=== PATIENT | female | born 1960 ===

== ENCOUNTER 2020-01-09 12:30 | Inpatient (IN) | payer OTHER, SELFPAY ==
[2020-04-03 02:00] VITALS: BMI 20.7
[2020-04-04] MEDS: traZODone HCL 50 MG TABLET PO (01:25)
[2020-04-04] MEDS: hydrOXYzine HCL 25 MG TABLET PO (01:25)
[2020-04-04 06:00] VITALS: BP 117/77; RESP 16; TEMP 36.6; O2SAT 94
[2020-04-04 07:00] VITALS: BMI 24.7
[2020-04-04] MEDS: Cariprazine HCl 1.5 MG CAPSULE 4.5 MG PO (09:08)
[2020-04-04] MEDS: Benztropine Mesylate 0.5 MG TABLET PO ×2 (09:11→21:51)
--- NOTE | 2020-04-04 10:39 | P.PNPSI_ITS ---
Assessment & Plan Assessment & Plan (1) Schizoaffective disorder: Status: Acute Code(s): F25.9 - Schizoaffective disorder, unspecified Assessment and Plan: continue Vryalar hold Zyprexa scheduled monitor for psychosis Greater than 50% of the session was spent on counseling and/or coordination of care Subjective Subjective Reason For Visit: Schizoaffective D/O Bipolar Type Interim History: patient remains stable out of her room Zyprexa held starting tonight monitor for psychosis auditory hallucination Mental Status Exam Mental Status Exam Patient Appearance: Well Grooomed Patient Orientation: Person, Place, Time and Situation Level of Consciousness: Awake Patient Behavior: Appropriate and Passive Mood Description: Calm and Withdrawn Affect Description: Calm and Withdrawn Patient Cognition Impaired: No Speech Pattern: Clear Hallucinations: None (denies has recent ) Thought Content: [place] and Poverty of Content Judgement: Fair Diagnostics Vital Signs (24Hr): Vital Signs - 24 hr 04/04/20 06:00 Temperature 97.8 F Respiratory Rate 16 Blood Pressure 117/77 Pulse Oximetry 94 Body Mass Index 24.7 Labs Results: 01/12/20 07:31 03/09/20 07:00 Medications Medications Ambulatory Orders Medication Instructions Recorded benztropine 1 mg PO BID 04/03/20 cariprazine 3 mg PO DAILY 04/03/20 hydroxyzine pamoate 25 mg PO DAILY PRN 04/03/20 Allergies Allergies Allergy/AdvReac Type Severity Reaction Status Date / Time haloperidol [From Haldol] AdvReac Mild AGITATION Unverified 03/21/20 16:26 From Inderal Allergy Intermediate IRREGULAR Uncoded 03/21/20 16:26 HEARTBEAT Haldol Allergy Unknown Uncoded 12/04/19 00:00 Propanolol Allergy Unknown Uncoded 12/04/19 00:00
[2020-04-05 04:20] VITALS: BP 116/56; PULSE 85; RESP 16; TEMP 36.4; O2SAT 97
[2020-04-05] MEDS: Cariprazine HCl 1.5 MG CAPSULE 4.5 MG PO (08:51)
[2020-04-05] MEDS: Benztropine Mesylate 0.5 MG TABLET PO ×3 (08:51→20:51)
[2020-04-05] MEDS: Milk of Magnesia 30 ML ORAL.SUSP PO (10:02)
--- NOTE | 2020-04-05 13:19 | PC.NURSE ---
Pt declined flu shot
--- NOTE | 2020-04-05 23:56 | HO.PSYCHPN ---
Assessment & Plan Assessment & Plan (1) Schizoaffective disorder: Status: Acute Code(s): F25.9 - Schizoaffective disorder, unspecified Assessment and Plan: continue Vryalar 4.5 mg consider increase to 6 mg restart olanzapine if needed Greater than 50% of the session was spent on counseling and/or coordination of care Subjective Subjective Reason For Visit: Schizoaffective D/O Bipolar Type Subjective Notes: Prado Order Interim History: patient continues to be generally stable somewhat guarded but not grossly psychotic denies auditory hallucinations. Able to discuss the need for therapeutic [place] and to the patient having responsibility to mention if auditory hallucinations recur Medication Compliance: Yes Mental Status Exam Mental Status Exam Narrative: dressed appropriately , good eye contact- Patient Orientation: Person, Place, Time and Situation Level of Consciousness: Awake and Alert Patient Behavior: Appropriate Mood Description: Calm Affect Description: Flat Patient Cognition Impaired: No Ability to Follow Directions: Good Speech Pattern: Clear Hallucinations: None Thought Process: Intact Thought Content: positive for Intact (looking forward to seeing her cat) and positive for Goal Oriented Judgement: Fair Diagnostics Vital Signs (24Hr): Vital Signs - 24 hr 04/05/20 04:20 Temperature 97.5 F Pulse Rate 85 Respiratory Rate 16 Blood Pressure 116/56 L Pulse Oximetry 97 Body Mass Index 24.7 Labs Results: 01/12/20 07:31 03/09/20 07:00 Medications Medications Current Medications Generic Name Dose Route Start Last Admin Trade Name Freq PRN Reason Stop Dose Admin Acetaminophen 650 mg 04/04/20 00:01 Acetaminophen 325 Mg Tablet PO Q6H PRN HEADACHE/PAIN.MILD (SCALE 1-3) Al Hydroxide/Mg Hydroxide 30 ml 04/04/20 00:01 Magnesium Hydrox/Alum Hydrox 30 Ml Oral.Susp PO Q6H PRN HEARTBURN/NAUSEA Benztropine Mesylate 0.5 mg 04/05/20 09:00 04/05/20 20:51 Benztropine Mesylate 0.5 Mg Tablet PO 0.5 mg TID ANNA Administration Cariprazine 3 mg 04/06/20 09:00 Cariprazine Hcl 3 Mg Capsule PO DAILY ANNA Cariprazine 1.5 mg 04/06/20 09:00 Cariprazine Hcl 1.5 Mg Capsule PO DAILY ANNA Hydroxyzine HCl 25 mg 04/04/20 00:01 04/04/20 01:25 Hydroxyzine Hcl 25 Mg Tablet PO 25 mg DAILY PRN Administration Anxiety Magnesium Hydroxide 30 ml 04/04/20 00:01 04/05/20 10:02 Milk Of Magnesia 30 Ml Oral.Susp PO 30 ml Q24H PRN Administration Constipation Nicotine Polacrilex 2 mg 04/04/20 00:01 Nicotine Polacrilex 2 Mg Gum BUCCAL Q2H PRN Nicotine Cravings Olanzapine 20 mg 04/13/20 21:00 Olanzapine 10 Mg Vial IM BEDTIME PRN anxiety/restlessness Olanzapine 10 mg 04/04/20 00:01 Olanzapine 10 Mg Tablet PO BID PRN Psychosis Propranolol HCl 10 mg 04/04/20 00:01 Propranolol Hcl 10 Mg Tablet PO TID PRN Tremors Protocol Trazodone HCl 50 mg 04/04/20 21:00 04/04/20 01:25 Trazodone Hcl 50 Mg Tablet PO 50 mg BEDTIME MRX1 PRN Administration Insomnia Allergies Allergies Allergy/AdvReac Type Severity Reaction Status Date / Time haloperidol [From Haldol] AdvReac Mild AGITATION Unverified 03/21/20 16:26 From Inderal Allergy Intermediate IRREGULAR Uncoded 03/21/20 16:26 HEARTBEAT Haldol Allergy Unknown Uncoded 12/04/19 00:00 Propanolol Allergy Unknown Uncoded 12/04/19 00:00
[2020-04-06] MEDS: traZODone HCL 50 MG TABLET PO (01:27)
[2020-04-06] MEDS: hydrOXYzine HCL 25 MG TABLET PO (01:27)
[2020-04-06 06:00] VITALS: BP 129/65; PULSE 82; TEMP 36.7
[2020-04-06] MEDS: Benztropine Mesylate 0.5 MG TABLET PO ×3 (08:55→22:27)
[2020-04-06] MEDS: Cariprazine HCl 3 MG CAPSULE PO (08:56)
[2020-04-06] MEDS: Cariprazine HCl 1.5 MG CAPSULE PO (11:19)
--- NOTE | 2020-04-06 12:14 | P.PNPSI_ITS ---
Assessment & Plan Greater than 50% of the session was spent on counseling and/or coordination of care Patient educated on: medication risk/benefits Informed Consent: understands Reason for contiued inpatient stay Substantial Risk for: rapid decompensation (has had a long recovery recompensation of significant psychtoic episode) Subjective Subjective Date of Service: 04/06/20 Reason For Visit: Schizoaffective D/O Bipolar Type Subjective Notes: Prado Order (vraylar and olanzapine) Interim History: Doing better - up and dressed, verbal going home Wednesday - using Yoga some trouble sleeping Medication Compliance: Yes (much better) Side effects from medications: No Attending Groups: Intermittent Review of Systems Acute medical concerns: No Medical Review of Systems: unchanged Mental Status Exam Mental Status Exam Patient Appearance: Well Grooomed and Appropriate Patient Orientation: Person, Place, Time and Situation Level of Consciousness: Awake and Appropriate Patient Behavior: Appropriate Mood Description: Calm Affect Description: Blunted Memory Description: Normal for Patient Hallucinations: None Delusions: Not Present (or atleast not voiced) Thought Process: Intact Thought Content: positive for [place] Judgement: Fair Judgement and Insight: hope she will continue to comply with medications outpatient Diagnostics Vital Signs (24Hr): Vital Signs - 24 hr 04/06/20 06:00 Temperature 98.1 F Pulse Rate 82 Blood Pressure 129/65 Body Mass Index 24.7 Labs Results: 01/12/20 07:31 03/09/20 07:00 Medications Medications Current Medications Generic Name Dose Route Start Last Admin Trade Name Freq PRN Reason Stop Dose Admin Acetaminophen 650 mg 04/04/20 00:01 Acetaminophen 325 Mg Tablet PO Q6H PRN HEADACHE/PAIN.MILD (SCALE 1-3) Al Hydroxide/Mg Hydroxide 30 ml 04/04/20 00:01 Magnesium Hydrox/Alum Hydrox 30 Ml Oral.Susp PO Q6H PRN HEARTBURN/NAUSEA Benztropine Mesylate 0.5 mg 04/05/20 09:00 04/06/20 08:55 Benztropine Mesylate 0.5 Mg Tablet PO 0.5 mg TID ANNA Administration Cariprazine 3 mg 04/06/20 09:00 04/06/20 08:56 Cariprazine Hcl 3 Mg Capsule PO 3 mg DAILY ANNA Administration Cariprazine 1.5 mg 04/06/20 09:00 04/06/20 11:19 Cariprazine Hcl 1.5 Mg Capsule PO 1.5 mg DAILY ANNA Administration Hydroxyzine HCl 25 mg 04/04/20 00:01 04/06/20 01:27 Hydroxyzine Hcl 25 Mg Tablet PO 25 mg DAILY PRN Administration Anxiety Magnesium Hydroxide 30 ml 04/04/20 00:01 04/05/20 10:02 Milk Of Magnesia 30 Ml Oral.Susp PO 30 ml Q24H PRN Administration Constipation Nicotine Polacrilex 2 mg 04/04/20 00:01 Nicotine Polacrilex 2 Mg Gum BUCCAL Q2H PRN Nicotine Cravings Olanzapine 20 mg 04/13/20 21:00 Olanzapine 10 Mg Vial IM BEDTIME PRN anxiety/restlessness Olanzapine 10 mg 04/04/20 00:01 Olanzapine 10 Mg Tablet PO BID PRN Psychosis Propranolol HCl 10 mg 04/04/20 00:01 Propranolol Hcl 10 Mg Tablet PO TID PRN Tremors Protocol Trazodone HCl 50 mg 04/04/20 21:00 04/06/20 01:27 Trazodone Hcl 50 Mg Tablet PO 50 mg BEDTIME MRX1 PRN Administration Insomnia Allergies Allergies Allergy/AdvReac Type Severity Reaction Status Date / Time haloperidol [From Haldol] AdvReac Mild AGITATION Unverified 03/21/20 16:26 From Inderal Allergy Intermediate IRREGULAR Uncoded 03/21/20 16:26 HEARTBEAT Haldol Allergy Unknown Uncoded 12/04/19 00:00 Propanolol Allergy Unknown Uncoded 12/04/19 00:00
[2020-04-07] MEDS: traZODone HCL 50 MG TABLET PO (00:41)
[2020-04-07] MEDS: hydrOXYzine HCL 25 MG TABLET PO (00:42)
[2020-04-07 06:40] VITALS: BP 107/64; PULSE 73; RESP 16; TEMP 36.3; O2SAT 96
[2020-04-07] MEDS: Cariprazine HCl 1.5 MG CAPSULE PO (08:57)
[2020-04-07] MEDS: Cariprazine HCl 3 MG CAPSULE PO (08:59)
[2020-04-07] MEDS: Benztropine Mesylate 0.5 MG TABLET PO ×3 (09:09→22:35)
--- NOTE | 2020-04-07 12:36 | HO.PSYCHPN ---
Assessment & Plan Assessment & Plan (1) Schizoaffective disorder: Status: Acute Code(s): F25.9 - Schizoaffective disorder, unspecified Assessment and Plan: compliant with medications required 2 atypical antipsychotics to stabilize Greater than 50% of the session was spent on counseling and/or coordination of care Subjective Subjective Date of Service: 04/07/20 Reason For Visit: Schizoaffective D/O Bipolar Type Subjective Notes: Other (sec8 ) Interim History: Pt continues to do well - slept better last night, was appropriate and left room when I was interviewing roommate Medication Compliance: Yes Side effects from medications: No Attending Groups: Intermittent Review of Systems Acute medical concerns: No Medical Review of Systems: unchanged Mental Status Exam Mental Status Exam Narrative: dressed appropriately , good eye contact- Patient Orientation: Person, Place, Time and Situation Level of Consciousness: Awake and Alert Patient Behavior: Appropriate Mood Description: Calm Affect Description: Flat Patient Cognition Impaired: No Ability to Follow Directions: Good Speech Pattern: Clear Hallucinations: None Thought Process: Intact Thought Content: positive for Intact (looking forward to seeing her cat) and positive for Goal Oriented Judgement: Fair Diagnostics Vital Signs (24Hr): Vital Signs - 24 hr 04/07/20 06:40 Temperature 97.4 F Pulse Rate 73 Respiratory Rate 16 Blood Pressure 107/64 Pulse Oximetry 96 Body Mass Index 24.7 Labs Results: 01/12/20 07:31 03/09/20 07:00 Medications Medications Current Medications Generic Name Dose Route Start Last Admin Trade Name Freq PRN Reason Stop Dose Admin Acetaminophen 650 mg 04/04/20 00:01 Acetaminophen 325 Mg Tablet PO Q6H PRN HEADACHE/PAIN.MILD (SCALE 1-3) Al Hydroxide/Mg Hydroxide 30 ml 04/04/20 00:01 Magnesium Hydrox/Alum Hydrox 30 Ml Oral.Susp PO Q6H PRN HEARTBURN/NAUSEA Benztropine Mesylate 0.5 mg 04/05/20 09:00 04/07/20 09:09 Benztropine Mesylate 0.5 Mg Tablet PO 0.5 mg TID ANNA Administration Cariprazine 3 mg 04/06/20 09:00 04/07/20 08:59 Cariprazine Hcl 3 Mg Capsule PO 3 mg DAILY ANNA Administration Cariprazine 1.5 mg 04/06/20 09:00 04/07/20 08:57 Cariprazine Hcl 1.5 Mg Capsule PO 1.5 mg DAILY ANNA Administration Hydroxyzine HCl 25 mg 04/04/20 00:01 04/07/20 00:42 Hydroxyzine Hcl 25 Mg Tablet PO 25 mg DAILY PRN Administration Anxiety Magnesium Hydroxide 30 ml 04/04/20 00:01 04/05/20 10:02 Milk Of Magnesia 30 Ml Oral.Susp PO 30 ml Q24H PRN Administration Constipation Nicotine Polacrilex 2 mg 04/04/20 00:01 Nicotine Polacrilex 2 Mg Gum BUCCAL Q2H PRN Nicotine Cravings Olanzapine 20 mg 04/13/20 21:00 Olanzapine 10 Mg Vial IM BEDTIME PRN anxiety/restlessness Olanzapine 10 mg 04/04/20 00:01 Olanzapine 10 Mg Tablet PO BID PRN Psychosis Propranolol HCl 10 mg 04/04/20 00:01 Propranolol Hcl 10 Mg Tablet PO TID PRN Tremors Protocol Trazodone HCl 50 mg 04/04/20 21:00 04/07/20 00:41 Trazodone Hcl 50 Mg Tablet PO 50 mg BEDTIME MRX1 PRN Administration Insomnia Allergies Allergies Allergy/AdvReac Type Severity Reaction Status Date / Time haloperidol [From Haldol] AdvReac Mild AGITATION Unverified 03/21/20 16:26 From Inderal Allergy Intermediate IRREGULAR Uncoded 03/21/20 16:26 HEARTBEAT Haldol Allergy Unknown Uncoded 12/04/19 00:00 Propanolol Allergy Unknown Uncoded 12/04/19 00:00
[2020-04-08 06:00] VITALS: BP 110/60; PULSE 80; RESP 16; TEMP 36.6
[2020-04-08] MEDS: Cariprazine HCl 3 MG CAPSULE PO (08:51)
[2020-04-08] MEDS: Cariprazine HCl 1.5 MG CAPSULE PO (08:51)
[2020-04-08] MEDS: Benztropine Mesylate 0.5 MG TABLET PO (08:51)
[2020-04-08 12:28] LABS: MANUAL DIFF FLAG NO
[2020-04-08 12:34] LABS: Basophils Percent Auto 0.7 % (0-2); Eosinophils Percent Auto 0.5 % (0-4); Hematocrit 39.1 % (37-47); Hemoglobin 12.9 g/dl (12.0-16.0); Imm Gran Abs Auto 0.02 X10*3/uL (0.00-0.03); Imm Gran Pct Auto 0.4 % (0.0-0.4); Lymphocytes Absolute Auto 1.6 X10*3/uL (1.2-4.9); Lymphocytes Percent Auto 28.6 % (20-40); Mean Corpuscular Hemoglobin 31.9 pg (27.0-33.0); Mean Corpuscular Volume 96.8 fL (80-98); Mean Platelet Volume 10.3 fL (9.4-12.3); Monocytes Absolute Auto 0.4 X10*3/uL (0.1-1.2); Neutrophils Absolute Auto 3.6 X10*3/uL (2.0-8.3); Neutrophils Percent Auto 62.8 % (45-73); Platelet Count 213 X10*3/uL (160-400); Red Blood Count 4.04 X10*6/uL (4.20-5.50); Red Cell Distribution Width 12.4 % (11.0-16.0); White Blood Count 5.7 X10*3/uL (4.8-10.8)
[2020-04-08 12:42] LABS: Estimated Average Glucose 111 mg/dL; Hemoglobin A1c % 5.5 %
[2020-04-08 13:00] LABS: Alanine Aminotransferase 19 U/L (0-31); Albumin Level 3.9 g/dL (3.5-5.0); Alkaline Phosphatase 82 U/L (39-117); Anion Gap 10 (12-20); Aspartate Amino Transferase 18 U/L (5-31); Bilirubin Total 0.3 mg/dL (0.0-1.0); Blood Urea Nitrogen 16 mg/dL (9-16); Calcium 9.1 mg/dL (8.4-10.2); Carbon Dioxide 31 mmol/L (22-29); Chloride 106 mmol/L (96-108); Creatinine Clr Calc Pharmacy 81.2; Estimated Glomerular Filt Rate > 60; Glucose Random 94 mg/dL (60-115); Potassium 4.6 mmol/l (3.3-5.1); Sodium 142 mmol/L (135-145); Total Protein 6.3 g/dL (6.5-8.0)
--- NOTE | 2020-04-08 13:07 | PM.PSYDC ---
DS: Providers Provider Date of admission: 01/09/20 12:30 date of discharge 04/08/2020 Primary care physician: Tiffany Crow MD Consults: 04/03/20 02:05 Consult to Crisis Routine DS: Diagnosis Discharge Diagnosis (1) Schizoaffective disorder: Status: Acute Discharge Plan Discharge Anticipated Discharge Date/Time: 04/08/20 00:56 Patient Disposition: Home Health Service Referrals: [facility] Visiting RN [Other] - 04/09/20 (Please mixing picker tender your medication today. The Visiting RN will have her first visit with you on 04/09/20. ) Rod Seo NP [Referring] - 05/06/20 11:20 am Tiffany Crow MD [Primary Care Provider] - 04/12/20 9:30 am Discharge Medications: New olanzapine 10 mg Tablet 10 mg PO DAILY PRN (Reason: hallucinations) 30 Days Qty: 14 RF: 1 Vraylar 4.5 mg capsule 4.5 mg PO DAILY 30 Days Qty: 30 RF: 0 benztropine 0.5 mg tablet 0.5 mg PO TID 30 Days Qty: 90 RF: 0 benztropine 0.5 mg tablet 0.5 mg PO TID 30 Days Qty: 90 RF: 0 Discontinued benztropine 1 mg Tablet 1 mg PO BID RF: 0 hydroxyzine pamoate 25 mg Capsule 25 mg PO DAILY PRN (Reason: ANXIETY OR INSOMNIA) RF: 0 cariprazine 3 mg Capsule 3 mg PO DAILY RF: 0 Discharge Orders: Discharge Order (Routine); Ordered 04/08/20 Ordered By: Ney Irvin Diet: advance to usual diet Activity on Discharge: As tolerated Patient Instructions: Cariprazine (By mouth), Bipolar Disorder (DC) Discharge Date/Time: 04/08/20 15:30 Visit Report Forms: Patient Portal Discharge page Care Plan Goals: stable mood no hallucinations no severe agitation take medication daily Health Concerns: schizoaffective disorder noncompliance with medication Plan of Treatment: medication vraylar daily zyprexa daily as needed for hallucinations psychiatric provider therapy Mental Status Exam Mental Status Exam Narrative: dressed appropriately , good eye contact- Patient Appearance: Well Grooomed and Appropriate Patient Orientation: Person, Place, Time and Situation Level of Consciousness: Awake and Alert Patient Behavior: Appropriate Mood Description: Calm Affect Description: Flat Patient Cognition Impaired: No Ability to Follow Directions: Good Speech Pattern: Clear Memory Description: Normal for Patient Hallucinations: None Delusions: Not Present Thought Content: positive for [place] Depressive Symptoms: Increased Anxiety and Increased Irritability Judgement and Insight: patient excepted need for medication by the time of discharge was much more cooperative DS: Summary Hospital Course Hospital Course: The patient was initially admitted 01/09/2020 on a Section 12 secondary to worsening psychosis refusing medication in the community. She had been stable on Vryalar. Or patient became increasingly paranoid disorganized. She has had past trials of Abilify lithium lamotrigine Seroquel Geodon and a brief trial of clozapine in the past. Past history of good response to olanzapine. The patient was admitted on a Section 12 was grossly psychotic paranoid and disorganized on admission. She was put on close observation she was screaming yelling talking about demons and aliens. She was hypersexual times required physical a medication restraint secondary to severe agitation threatening behavior and psychotic symptoms. The patient generally was refusing p.o. medication with a commitment order and Prado order was obtained on February 14. The patient was started on some sertraline p.o. because of what appeared to be post psychotic depressive symptoms but she generally refused. She also refused engaging with her out reach team despite trying to set up a discharge plan and transition. The patient was treated with up to 30 mg of olanzapine and did ask to be transitioned back to Vryalar which she said had been better tolerated. She did have idiosyncratic thoughts about medication and side effects. Olanzapine was gradually tapered and Vryalar introduced and gradually increased. The patient was cooperative with this transition and was something that she strongly wished to do. the patient had been irritable dysphoric somewhat paranoid and suspicious regarding her out reach team mixed in with some realistic concerns regarding how she had been treated. The patient was eventually able to participate in the therapeutic [place] with this advertising copy writer gradually being clear when there were residual auditory hallucinations or paranoia. Patient was able to eventually reengage with her outpatient team be forthcoming and what she felt she needed help with. She was somewhat flat but significantly less depressed and less guarded by the time of discharge. She was logical and goal directed generally much less concerned regarding any paranoid themes and there was no gross hallucinations or delusional material. The patient had been referred to [facility] but this turned out not to be necessary. She was on Vryalar is 4.5 mg olanzapine 10 mg p.r.n. Cogentin 0.5 mg t.i.d. see discharge plan for full discharge medication patient was referred back to [facility] p.r.n. Time Spent with Patient Time attestation: Total time spent providing and/or coordinating discharge services:
[2020-04-08 13:19] LABS: Thyroid Stimulating Hormone 0.32 mIU/mL (0.32-4.0)
== END 2020-04-08 15:30 | disposition home health service (06) | DRG 885 ==
PROVIDERS: Admitting Provider Psychiatry & Neurology Psychiatry; Emergency Provider Physician Assistant Medical; PCP Student in an Organized Health Care Education/Training Program; Visit Provider Psychiatry & Neurology Psychiatry
DX: F25.0 Schizoaffective disorder, bipolar type (principal); Z20.828 Contact with and (suspected) exposure to other viral communicable diseases; Z91.19 Patient's noncompliance with other medical treatment and regimen; Z79.899 Other long term (current) drug therapy
CPT/HCPCS: 36415; 80053; 80061; 81001; 82607; 82746; 83036; 84439; 84443; 85025; 87088; 87635; 93005; 96372; 99232; 99239; 99285; J0515; J1200; J2060; J3486

== ENCOUNTER 2021-12-01 09:06 | Inpatient (IN) | payer OTHER, SELFPAY ==
[2021-12-01] MEDS: OLANZapine 10 MG VIAL IM (09:10)
--- NOTE | 2021-12-01 09:12 | ED.PSYCH ---
HPI - Psych General Chief Complaint: Psychiatric Symptoms Stated Complaint: SECTION 12, PD ONBOARD Time Seen by Provider: 12/01/21 09:08 Source: EMS and old records reviewed Mode of arrival: EMS Limitations: other (agitated, talking in circles) History of Present Illness MD complaint: other (paranoid, off of medications, agitated, walking into neighbor's houses, banging on doors) Onset (ago): unknown Duration: constant History of same: Yes Relieving factors: none Exacerbating factors: other (not taking medication) Context: not taking psychiatric medications Associated psychiatric symptoms: racing thoughts and delusions Associated symptoms: denies other symptoms Treatments prior to arrival: placed on mental health hold Related Data Home Medications Medication Instructions Recorded Confirmed lurasidone 40 mg tablet (Latuda) 1 tab PO DAILY 12/01/21 12/01/21 Allergies Allergy/AdvReac Type Severity Reaction Status Date / Time haloperidol [From Haldol] AdvReac Mild AGITATION Unverified 03/21/20 16:26 From Inderal Allergy Intermediate IRREGULAR Uncoded 03/21/20 16:26 HEARTBEAT Haldol Allergy Unknown Uncoded 12/04/19 00:00 Propanolol Allergy Unknown Uncoded 12/04/19 00:00 Review of Systems Review of Systems: ROS unable to be obtained due to agitation, talking in circles PMFSH Past Medical History Source: old records reviewed Medical History Schizoaffective disorder Social History Social History (Updated 12/01/21 @ 09:17 by Mabel Delgadillo DO) Patient Tobacco Use Status: Tobacco use Unknown Advance Directives: No Advance Directives Information Provided: No Physical Exam Vital Signs: Vital Signs: Last Vital Signs Pulse 100 12/01/21 09:17 Pulse Ox 99 12/01/21 09:17 BMI result Body Mass Index 27.6 Appearance: Alert. analy ballard said fuck it, who are you the police? where is my cat? look at me I am talking in sing song you can write it down feel free. Mild acute distress. Eyes: Pupils equal, round and reactive to light. ENT: Pharynx normal. Neck: Normal inspection. Neck supple. CVS: tachycardic heart rate and rhythm. Pulses normal. Respiratory: No respiratory distress. Abdomen: atraumatic Skin: Skin warm and dry. Normal skin color. Extremities: No lower extremity edema. Neuro: Steady gait, nonsensical hyperverbal pressured speech, agitated, cannot participate in neuro exam at this time due to agitation but is moving all extremities without issue. Course Course Course Narrative: patient sitting calmly in room after medications less agitated and less verbose Physician observation started at 1030am. Patient placed in physician observation because the patient needed more time for BHN to assess the need for psych admission. At the time observation was started the patient's vitals were stable, patient is alert and more calm, Neuro: nonfocal, she is refusing all labs and urine sample. MDM - Psych MDM Narrative Medical decision making narrative: 61 yo female with hx of schizoaffective disorder here with c/o agitation and off of medications. She is very agitated, will not change, verbally fighting with staff, escalating and making threats to leave - on section 12. At this time she will not comply with care and is increasingly agitated. Will obtain labs, IM zyprexa for behavior control and concern for patient/staff safety. BHN consult once medically cleared - hx of similar presentation with admission to our inpatient psychiatric unit 2019 Discharge Plan Discharge Clinical Impression: Schizoaffective disorder Qualifiers: Schizoaffective disorder type: unspecified Qualified Code(s): F25.9 - Schizoaffective disorder, unspecified Patient Disposition: Still a Patient Prescriptions: No Action Latuda 40 mg tablet 1 tab PO DAILY 0RF
[2021-12-01 09:17] VITALS: PULSE 100; O2SAT 99; BMI 27.6
--- NOTE | 2021-12-01 13:55 | PC.NURSE ---
pt refused to ambulate to the pod so she was brought to the pod via stretcher. pt refused to get off the stretcher. pt is swearing at staff, redirected to room bh3.
--- NOTE | 2021-12-01 14:21 | PC.NURSE ---
bhn at bedside, pt aware of plan
--- NOTE | 2021-12-01 20:59 | PC.NURSE ---
Patient refused to have Covid swab done stating she had her booster shot, patient made aware with facility Covid protocol and educated with patient safety but refused despite repeated approach, patient is currently on Covid Quarantine protocol, provider and charge nurse aware, patient currently is psychotic/tangential/non-receptive of any direction, will continue to monitor.
--- NOTE | 2021-12-01 21:50 | PC.NURSE ---
Refused to provide urine sample
--- NOTE | 2021-12-01 23:37 | PC.NURSE ---
PT refused Covid Swab, Vital's and Urine sample at this time RN was notify.
[2021-12-01 23:40] VITALS: RESP 18
[2021-12-02 02:31] LABS: COVID-19 Test Negative (Negative)
--- NOTE | 2021-12-02 06:15 | PC.NURSE ---
Patient was awake whole night, in and out of her room, watching TV in common area, snacking, pending urine sample, VS at baseline, behavior unpredictable, argumentative and defiant at time, thought content paranoid at base, med rec completed/pending provider's approval, patient was assessed by N, disposition pending, will continue to monitor.
[2021-12-02 06:19] VITALS: BP 158/84; PULSE 92; RESP 16; TEMP 36.1; O2SAT 99
--- NOTE | 2021-12-02 07:04 | PC.NURSE ---
patient appears to remain asleep at present respirations are even and unlabored patient appears in no distress
--- NOTE | 2021-12-02 11:11 | PC.NURSE ---
client called peer r--ded to his face client was rediracted and she declined to move or change her behavior, security called to encourage patient compliance, patient did go to her room of her own accord, stated some comment about not having a toilet plunger in her room.
[2021-12-02] MEDS: Lurasidone HCl 40 MG TABLET PO (11:58)
--- NOTE | 2021-12-02 17:37 | PM.PSYCN ---
History of Present Illness Chief Complaint: SECTION 12, PD ONBOARD ON LICENSE OF [facility] Medical History Schizoaffective disorder Diagnostics Vital Signs (24Hr): Vital Signs - 24 hr 12/01/21 23:40 12/02/21 06:19 Temperature 97.0 F Pulse Rate 92 Respiratory Rate 18 16 Blood Pressure 158/84 H Pulse Oximetry 99 BMI result Body Mass Index 27.6 Labs Labs: Laboratory Results - last 48 hr 12/02/21 02:06 COVID-19 ([facility]) Negative COVID-19 Clin Com See Note Medications Medications Current Medications Lurasidone HCl (Lurasidone Hcl 40 Mg Tablet) 40 mg PO DAILY ANNA Last Admin: 12/02/21 11:58 Dose: 40 mg Documented by: Pharmacy Consult (Consult Rx Perform Med Rec) 1 each MISCELLANE ONCE PRN PRN Reason: Consult order Allergies Allergies Allergy/AdvReac Type Severity Reaction Status Date / Time haloperidol [From Haldol] AdvReac Mild AGITATION Unverified 03/21/20 16:26 From Inderal Allergy Intermediate IRREGULAR Uncoded 03/21/20 16:26 HEARTBEAT Haldol Allergy Unknown Uncoded 12/04/19 00:00 Propanolol Allergy Unknown Uncoded 12/04/19 00:00 Assessment & Plan I spent minutes with the patient and/or on the patient floor today, greater than?50% of which was spent counseling/coordinating care.
--- NOTE | 2021-12-02 19:24 | MHC.CARE ---
Addendum entered by Jaimie Heredia [facility] 12/02/21 22:05: Authorization:[id number] 4 days approved by Lorin preciado on last day with Jeannette [phone]. Original Note: Pt has been accepted to for admission on 12/02/21.
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
[2021-12-03] MEDS: Lurasidone HCl 40 MG TABLET PO (08:56)
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
--- NOTE | 2021-12-04 09:11 | PC.NURSE ---
pt refused morning meds. pt is loud and floridly psychotic and hyperverbal in the kitchen disturbing all other patients. saying racial comments. security called as she refused to come out of the kitchen . pt still unwilling /unable to walk out of kitchen on her own. pulling on security's clothing. pt escorted to her room and placed on a 1:1.
--- NOTE | 2021-12-04 09:23 | PC.NURSE ---
pt states not a smoker
[2021-12-04] MEDS: LORazepam 2 MG/ML VIAL 1 MG IM (10:09)
[2021-12-04] MEDS: OLANZapine 10 MG VIAL IM (10:09)
--- NOTE | 2021-12-04 10:34 | PC.NURSE ---
Pt psychotic. Screaming, shouting racists comments. Threatening staff & patients. Interventions offered. Unable to redirect. Security called. MD at bedside. IM Medications administered at 1005.
--- NOTE | 2021-12-04 10:58 | P.EN_ITS ---
Event Note Date of Service: 12/04/21 Event Note: pt floridly manic; she became aggressive, verbally assaultive, posturing and threatening; could not be redirected and required application security consultant to her room and needed IM Zyprexa 10mg and Ativan 1mg for patient and milue safety
--- NOTE | 2021-12-04 11:46 | HO.PSYCHPN ---
Subjective Subjective Date of Service: 12/04/21 Reason For Visit: Psychosis Subjective Notes: Section 12B Interim History: Pt this morning agitated, screaming and yelling at staff demanding to be discharge. Pt not able to be redirected requiring IM medication. Pt on 1:1 for safety. Pt reports she was just stating the facts, the truth! and they injected me with lithium or some medication. Pt reports feeling tired and bit somnolent. She politely dismissed this journalists and other writers stating there's no point of having this conversation. Medication Compliance: No Side effects from medications: No Attending Groups: No Review of Systems Review of Systems Yes Unobtainable due to mental status Reports behavioral changes Psychiatric: Reports behavioral changes, Reports irritability, Reports mood swings and Reports paranoia Mental Status Exam Mental Status Exam Patient Appearance: Fatigued and Disheveled Patient Orientation: Person Level of Consciousness: Alert Patient Behavior: Guarded, Wandering, Anxious, Fearful, Resistive to Care, Avoidant, Fatigued, Distractible, Isolative and Poor Eye Contact Mood Description: Depressed, Anxious and Angry Affect Description: Labile Patient Cognition Impaired: Yes Ability to Follow Directions: Fair Speech Pattern: Impoverished, Spontaneous Speech and Soft-Spoken Memory Description: Remote Impaired Diagnostics Vital Signs (24Hr): Vital Signs - 24 hr 12/04/21 16:55 Temperature 98.2 F Pulse Rate 113 H Blood Pressure 127/73 BMI result Body Mass Index 27.6 Medications Medications Current Medications Acetaminophen (Acetaminophen 325 Mg Tablet) 650 mg PO Q6H PRN PRN Reason: Headache/Pain Mild Scale (1-3) Al Hydroxide/Mg Hydroxide (Magnesium Hydrox/Alum Hydrox 30 Ml Oral.Susp) 30 ml PO Q6H PRN PRN Reason: Heartburn/Nausea Hydroxyzine HCl (Hydroxyzine Hcl 25 Mg Tablet) 25 mg PO BEDTIME PRN PRN Reason: Anxiety Lurasidone HCl (Lurasidone Hcl 40 Mg Tablet) 40 mg PO DAILY [facility] Last Admin: 12/04/21 08:48 Dose: Not Given Documented by: Magnesium Hydroxide (Milk Of Magnesia 30 Ml Oral.Susp) 30 ml PO DAILY PRN PRN Reason: Constipation Nicotine Polacrilex (Nicotine Polacrilex 2 Mg Gum) 4 mg BUCCAL Q2H PRN PRN Reason: Nicotine Cravings Olanzapine (Olanzapine 5 Mg Tablet) 5 mg PO BID [facility] Last Admin: 12/04/21 21:27 Dose: Not Given Documented by: Olanzapine (Olanzapine Odt 10 Mg Tab.Rapdis) 10 mg TRANSLINGU Q8H PRN PRN Reason: agitation Pharmacy Consult (Consult Rx Perform Med Rec) 1 each MISCELLANE ONCE PRN PRN Reason: Consult order Trazodone HCl (Trazodone Hcl 50 Mg Tablet) 50 mg PO BEDTIME PRN PRN Reason: Insomnia Allergies Allergies Allergy/AdvReac Type Severity Reaction Status Date / Time haloperidol [From Haldol] AdvReac Mild AGITATION Unverified 03/21/20 16:26 From Inderal Allergy Intermediate IRREGULAR Uncoded 03/21/20 16:26 HEARTBEAT Haldol Allergy Unknown Uncoded 12/04/19 00:00 Propanolol Allergy Unknown Uncoded 12/04/19 00:00 Assessment & Plan Assessment & Plan (1) Schizoaffective disorder: Qualifiers: Schizoaffective disorder type: unspecified Qualified Code(s): F25.9 - Schizoaffective disorder, unspecified Status: Acute Code(s): F25.9 - Schizoaffective disorder, unspecified Assessment and Plan: 61 yo female, history of schizoaffective disorder, with decompensation due to probable medication non-compliance. Pt struggling to take medications for the team upon admission-avoidant angry and unwilling to participate in formal interview. Agrees to let team know if she has needs that we may address. 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 Plan: Observe Continue current regime Section XIIB expires 12/05. Encourage voluntary treatment to re-establish baseline Diagnostics hopefully with alliance building. 12/04/ continue current treatment plan I spent minutes with the patient and/or on the patient floor today, greater than?50% of which was spent counseling/coordinating care. Reason for contiued inpatient stay Substantial Risk for: inability to function
[2021-12-04 16:55] VITALS: BP 127/73; PULSE 113; TEMP 36.8
[2021-12-05] MEDS: Lurasidone HCl 40 MG TABLET PO (09:51)
--- NOTE | 2021-12-05 17:09 | P.PNPSI_ITS ---
Subjective Subjective Date of Service: 12/05/21 Reason For Visit: Psychosis Subjective Notes: Section 7 Healthcare Proxy: No Guardianship: Yes ([employer] for Star) Medical Problems Affecting Mental Status: No Interim History: Section VII filed. Pt remains angry, labile, paranoid Care discussed with Rod Seo APRN who reports pt has a strong alliance with [employer]. He also reports pt has great difficulty making alliances with teams. Hx of trials of Invega, Olanzapine (effective), Risperdal, Vraylar and Geodon. Pt will often report weight gain and tremor as SE Medication Compliance: Intermittent Side effects from medications: No Attending Groups: No Review of Systems Acute medical concerns: No Medical Review of Systems: unchanged Review of Systems Review of Systems Yes Unobtainable due to mental status Reports behavioral changes Psychiatric: Reports behavioral changes, Reports irritability, Reports mood swings and Reports paranoia Mental Status Exam Mental Status Exam Patient Appearance: Fatigued and Disheveled Patient Orientation: Person Level of Consciousness: Alert Patient Behavior: Guarded, Wandering, Anxious, Fearful, Resistive to Care, Avoidant, Fatigued, Distractible, Isolative and Poor Eye Contact Mood Description: Depressed, Anxious and Angry Affect Description: Labile Patient Cognition Impaired: Yes Ability to Follow Directions: Fair Speech Pattern: Impoverished, Spontaneous Speech and Soft-Spoken Memory Description: Remote Impaired Hallucinations: None Delusions: Paranoid Ideation and Present Perceptual Disturbances: Depersonalization Thought Process: Distracted, Rumination and Evasive Thought Content: positive for [place], positive for Circumstantial, positive for Perseveration, positive for Poverty of Content and positive for Evasive Depressive Symptoms: Increased Irritability, Loss of Int. in Activity and Increased Fatigue Abnormal Motor Activity Signs and Symptoms: Agitation and Restlessness Judgement: Poor Diagnostics Vital Signs (24Hr): BMI result Body Mass Index 27.6 Medications Medications Current Medications Acetaminophen (Acetaminophen 325 Mg Tablet) 650 mg PO Q6H PRN PRN Reason: Headache/Pain Mild Scale (1-3) Al Hydroxide/Mg Hydroxide (Magnesium Hydrox/Alum Hydrox 30 Ml Oral.Susp) 30 ml PO Q6H PRN PRN Reason: Heartburn/Nausea Hydroxyzine HCl (Hydroxyzine Hcl 25 Mg Tablet) 25 mg PO BEDTIME PRN PRN Reason: Anxiety Lurasidone HCl (Lurasidone Hcl 40 Mg Tablet) 40 mg PO DAILY [facility] Last Admin: 12/05/21 09:51 Dose: 40 mg Documented by: Magnesium Hydroxide (Milk Of Magnesia 30 Ml Oral.Susp) 30 ml PO DAILY PRN PRN Reason: Constipation Nicotine Polacrilex (Nicotine Polacrilex 2 Mg Gum) 4 mg BUCCAL Q2H PRN PRN Reason: Nicotine Cravings Olanzapine (Olanzapine 5 Mg Tablet) 5 mg PO BID [facility] Last Admin: 12/05/21 09:52 Dose: Not Given Documented by: Olanzapine (Olanzapine Odt 10 Mg Tab.Rapdis) 10 mg TRANSLINGU Q8H PRN PRN Reason: agitation Pharmacy Consult (Consult Rx Perform Med Rec) 1 each MISCELLANE ONCE PRN PRN Reason: Consult order Trazodone HCl (Trazodone Hcl 50 Mg Tablet) 50 mg PO BEDTIME PRN PRN Reason: Insomnia Allergies Allergies Allergy/AdvReac Type Severity Reaction Status Date / Time haloperidol [From Haldol] AdvReac Mild AGITATION Unverified 03/21/20 16:26 From Inderal Allergy Intermediate IRREGULAR Uncoded 03/21/20 16:26 HEARTBEAT Haldol Allergy Unknown Uncoded 12/04/19 00:00 Propanolol Allergy Unknown Uncoded 12/04/19 00:00 Assessment & Plan Assessment & Plan (1) Schizoaffective disorder: Qualifiers: Schizoaffective disorder type: unspecified Qualified Code(s): F25.9 - Schizoaffective disorder, unspecified Status: Acute Code(s): F25.9 - Schizoaffective disorder, unspecified Assessment and Plan: 61 yo female, history of schizoaffective disorder, with decompensation due to probable medication non-compliance. Pt struggling to take medications for the team upon admission-avoidant angry and unwilling to participate in formal interview. Agrees to let team know if she has needs that we may address. 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 Plan: Observe Continue current regime Section XIIB expires 12/05. Encourage voluntary treatment to re-establish baseline Diagnostics hopefully with alliance building. 12/04/ continue current treatment plan 12/05/[address] assigned 12/11/21. I spent minutes with the patient and/or on the patient floor today, greater than?50% of which was spent counseling/coordinating care. Patient educated on: other Informed Consent: does not understand Reason for contiued inpatient stay Substantial Risk for: harm to self, harm to others, inability to function and rapid decompensation
[2021-12-06] MEDS: Lurasidone HCl 40 MG TABLET PO (08:19)
[2021-12-06] MEDS: LORazepam 2 MG/ML VIAL 1 MG IM (12:19)
[2021-12-06] MEDS: OLANZapine 10 MG VIAL IM (12:19)
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
--- NOTE | 2021-12-06 16:45 | HO.PSYCHPN ---
Subjective Subjective Date of Service: 12/06/21 Reason For Visit: Psychosis Subjective Notes: Section 7 Healthcare Proxy: No Guardianship: Yes Medical Problems Affecting Mental Status: No Interim History: Distraught, screaming, impossible to console today. Appeared in significant emotional pain and distress. Interactions appeared to intensify symptoms. Paranoia and delusional content in her interactions. Required Olanzapine/Lorazepam IM. After this pt able to eat, rest, calmly participate in milieu. Anger/agitation decreased Medication Compliance: Intermittent Side effects from medications: No Attending Groups: No Review of Systems Acute medical concerns: No Medical Review of Systems: unchanged Mental Status Exam Mental Status Exam Patient Appearance: Fatigued and Disheveled Patient Orientation: Person Level of Consciousness: Alert Patient Behavior: Guarded, Wandering, Anxious, Fearful, Resistive to Care, Avoidant, Fatigued, Distractible, Isolative and Poor Eye Contact Mood Description: Depressed, Anxious and Angry Affect Description: Labile Patient Cognition Impaired: Yes Ability to Follow Directions: Fair Speech Pattern: Impoverished, Spontaneous Speech and Soft-Spoken Memory Description: Remote Impaired Hallucinations: None Delusions: Paranoid Ideation and Present Perceptual Disturbances: Depersonalization Thought Process: Distracted, Rumination and Evasive Thought Content: positive for [place], positive for Circumstantial, positive for Perseveration, positive for Poverty of Content and positive for Evasive Depressive Symptoms: Increased Irritability, Loss of Int. in Activity and Increased Fatigue Abnormal Motor Activity Signs and Symptoms: Agitation and Restlessness Judgement: Poor Diagnostics Vital Signs (24Hr): BMI result Body Mass Index 27.6 Medications Medications Current Medications Acetaminophen (Acetaminophen 325 Mg Tablet) 650 mg PO Q6H PRN PRN Reason: Headache/Pain Mild Scale (1-3) Al Hydroxide/Mg Hydroxide (Magnesium Hydrox/Alum Hydrox 30 Ml Oral.Susp) 30 ml PO Q6H PRN PRN Reason: Heartburn/Nausea Hydroxyzine HCl (Hydroxyzine Hcl 25 Mg Tablet) 25 mg PO BEDTIME PRN PRN Reason: Anxiety Lurasidone HCl (Lurasidone Hcl 40 Mg Tablet) 40 mg PO DAILY [facility] Last Admin: 12/06/21 08:19 Dose: 40 mg Documented by: Magnesium Hydroxide (Milk Of Magnesia 30 Ml Oral.Susp) 30 ml PO DAILY PRN PRN Reason: Constipation Nicotine Polacrilex (Nicotine Polacrilex 2 Mg Gum) 4 mg BUCCAL Q2H PRN PRN Reason: Nicotine Cravings Olanzapine (Olanzapine 5 Mg Tablet) 5 mg PO BID [facility] Last Admin: 12/06/21 08:22 Dose: Not Given Documented by: Olanzapine (Olanzapine Odt 10 Mg Tab.Rapdis) 10 mg TRANSLINGU Q8H PRN PRN Reason: agitation Pharmacy Consult (Consult Rx Perform Med Rec) 1 each MISCELLANE ONCE PRN PRN Reason: Consult order Trazodone HCl (Trazodone Hcl 50 Mg Tablet) 50 mg PO BEDTIME PRN PRN Reason: Insomnia Allergies Allergies Allergy/AdvReac Type Severity Reaction Status Date / Time haloperidol [From Haldol] AdvReac Mild AGITATION Unverified 03/21/20 16:26 From Inderal Allergy Intermediate IRREGULAR Uncoded 03/21/20 16:26 HEARTBEAT Haldol Allergy Unknown Uncoded 12/04/19 00:00 Propanolol Allergy Unknown Uncoded 12/04/19 00:00 Assessment & Plan Assessment & Plan (1) Schizoaffective disorder: Qualifiers: Schizoaffective disorder type: unspecified Qualified Code(s): F25.9 - Schizoaffective disorder, unspecified Status: Acute Code(s): F25.9 - Schizoaffective disorder, unspecified Assessment and Plan: 61 yo female, history of schizoaffective disorder, with decompensation due to probable medication non-compliance. Pt struggling to take medications for the team upon admission-avoidant angry and unwilling to participate in formal interview. Agrees to let team know if she has needs that we may address. 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 Plan: Observe Continue current regime Section XIIB expires 12/05. Encourage voluntary treatment to re-establish baseline Diagnostics hopefully with alliance building. current treatment plan 12/05/[address] assigned 12/11/21. 12/06/21 Pt required Olanzapine 10 mg/Lorazeapm 1 mg IM to assist in mood mgt. I spent minutes with the patient and/or on the patient floor today, greater than?50% of which was spent counseling/coordinating care. Patient educated on: therapeutic strategies Informed Consent: does not understand Reason for contiued inpatient stay Substantial Risk for: harm to self, harm to others, inability to function and rapid decompensation
[2021-12-06 20:15] VITALS: BP 134/93; PULSE 124; RESP 20; TEMP 37.2; O2SAT 99
[2021-12-06] MEDS: diphenhydrAMINE HCL 25 MG TABLET 50 MG PO (22:44)
[2021-12-07] MEDS: Lurasidone HCl 40 MG TABLET PO (09:34)
--- NOTE | 2021-12-07 10:48 | P.PNPSI_ITS ---
Subjective Subjective Date of Service: 12/07/21 Reason For Visit: Psychosis Subjective Notes: Section 7 Healthcare Proxy: No Guardianship: Yes Medical Problems Affecting Mental Status: No Interim History: Calmer today. Asked to meet with tw. Introduced myself again-pt asks if I have a private practice and will be seeing her as an out patient. Education provided regarding her current provider, Rod Seo APRN. Brief, focused, calm conversation. Denies current symptoms, reports no medical concerns, no current physical pain and reports medicine helps even though she disagrees with it. No other questions at this time. Responds to a decrease in stimuli and is able to verbalize that this is helpful at this time. Continues on one to one Medication Compliance: Yes Side effects from medications: No Attending Groups: No Review of Systems Acute medical concerns: No Medical Review of Systems: unchanged Mental Status Exam Mental Status Exam Patient Appearance: Fatigued and Disheveled Patient Orientation: Person Level of Consciousness: Alert Patient Behavior: Guarded, Wandering, Anxious, Fearful, Resistive to Care, Avoidant, Fatigued, Distractible, Isolative and Poor Eye Contact Mood Description: Depressed, Anxious and Angry Affect Description: Labile Patient Cognition Impaired: Yes Ability to Follow Directions: Fair Speech Pattern: Impoverished, Spontaneous Speech and Soft-Spoken Memory Description: Remote Impaired Hallucinations: None Delusions: Paranoid Ideation and Present Perceptual Disturbances: Depersonalization Thought Process: Distracted, Rumination and Evasive Thought Content: positive for [place], positive for Circumstantial, positive for Perseveration, positive for Poverty of Content and positive for Evasive Depressive Symptoms: Increased Irritability, Loss of Int. in Activity and Increased Fatigue Abnormal Motor Activity Signs and Symptoms: Agitation and Restlessness Judgement: Poor Diagnostics Vital Signs (24Hr): Vital Signs - 24 hr 12/06/21 20:15 Temperature 99.0 F Pulse Rate 124 H Respiratory Rate 20 Blood Pressure 134/93 H Pulse Oximetry 99 BMI result Body Mass Index 27.6 Medications Medications Current Medications Acetaminophen (Acetaminophen 325 Mg Tablet) 650 mg PO Q6H PRN PRN Reason: Headache/Pain Mild Scale (1-3) Al Hydroxide/Mg Hydroxide (Magnesium Hydrox/Alum Hydrox 30 Ml Oral.Susp) 30 ml PO Q6H PRN PRN Reason: Heartburn/Nausea Hydroxyzine HCl (Hydroxyzine Hcl 25 Mg Tablet) 25 mg PO BEDTIME PRN PRN Reason: Anxiety Lurasidone HCl (Lurasidone Hcl 40 Mg Tablet) 40 mg PO DAILY [facility] Last Admin: 12/07/21 09:34 Dose: 40 mg Documented by: Magnesium Hydroxide (Milk Of Magnesia 30 Ml Oral.Susp) 30 ml PO DAILY PRN PRN Reason: Constipation Nicotine Polacrilex (Nicotine Polacrilex 2 Mg Gum) 4 mg BUCCAL Q2H PRN PRN Reason: Nicotine Cravings Olanzapine (Olanzapine 5 Mg Tablet) 5 mg PO BID [facility] Last Admin: 12/07/21 09:37 Dose: Not Given Documented by: Olanzapine (Olanzapine Odt 10 Mg Tab.Rapdis) 10 mg TRANSLINGU Q8H PRN PRN Reason: agitation Pharmacy Consult (Consult Rx Perform Med Rec) 1 each MISCELLANE ONCE PRN PRN Reason: Consult order Trazodone HCl (Trazodone Hcl 50 Mg Tablet) 50 mg PO BEDTIME PRN PRN Reason: Insomnia Allergies Allergies Allergy/AdvReac Type Severity Reaction Status Date / Time haloperidol [From Haldol] AdvReac Mild AGITATION Unverified 03/21/20 16:26 From Inderal Allergy Intermediate IRREGULAR Uncoded 03/21/20 16:26 HEARTBEAT Haldol Allergy Unknown Uncoded 12/04/19 00:00 Propanolol Allergy Unknown Uncoded 12/04/19 00:00 Assessment & Plan Assessment & Plan (1) Schizoaffective disorder: Qualifiers: Schizoaffective disorder type: unspecified Qualified Code(s): F25.9 - Schizoaffective disorder, unspecified Status: Acute Code(s): F25.9 - Schizoaffective disorder, unspecified Assessment and Plan: 61 yo female, history of schizoaffective disorder, with decompensation due to probable medication non-compliance. Pt struggling to take medications for the team upon admission-avoidant angry and unwilling to participate in formal interview. Agrees to let team know if she has needs that we may address. 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 Plan: Observe Continue current regime Section XIIB expires 12/05. Encourage voluntary treatment to re-establish baseline Diagnostics hopefully with alliance building. 12/04/ continue current treatment plan 12/05/[address] 12/11/21. 12/07/21 continue current regime. Calmer today. I spent minutes with the patient and/or on the patient floor today, greater than?50% of which was spent counseling/coordinating care. Patient educated on: medication risk/benefits and therapeutic strategies Informed Consent: further education needed Reason for contiued inpatient stay Substantial Risk for: harm to self, harm to others, inability to function, rapid decompensation and med/psych decompensation
[2021-12-07] MEDS: hydrOXYzine HCL 25 MG TABLET PO ×2 (20:45→22:56)
[2021-12-07] MEDS: traZODone HCL 50 MG TABLET PO (22:56)
[2021-12-08] MEDS: Lurasidone HCl 40 MG TABLET PO (08:30)
--- NOTE | 2021-12-08 13:20 | HO.PSYCHPN ---
Subjective Subjective Date of Service: 12/08/21 Reason For Visit: Psychosis Subjective Notes: Section 7 Healthcare Proxy: No Guardianship: Yes Medical Problems Affecting Mental Status: No Interim History: Improved with break-through irritability. Not overly communicative-she will ask for you when she feels this need, otherwise, minimal interaction. Visable, engaged in TV programs, more observant of her environment. Received Prado today, dated 07/31/21 Latuda is primary 40-160 mg daily Alternatives Invega up to 12 mg daily/ Invega Sustenna up to 234 mg IM monthly/Olanzapine up to 40 mg daily/ Vraylar up to 6 mg daily. Olanzapine 5 mg bid po or IM added with this clarification today of Prado. Medication Compliance: Intermittent Side effects from medications: No Attending Groups: Intermittent Review of Systems Acute medical concerns: No Medical Review of Systems: unchanged Review of Systems Reports behavioral changes Psychiatric: Reports behavioral changes, Reports difficulty concentrating, Reports auditory hallucinations, Reports irritability, Reports anhedonia, Reports mood swings and Reports paranoia Mental Status Exam Mental Status Exam Patient Appearance: Appropriate Patient Orientation: Person and Place Level of Consciousness: Alert Patient Behavior: Guarded, Suspicious and Poor Eye Contact Mood Description: Constricted Affect Description: Constricted and Labile Patient Cognition Impaired: Yes Ability to Follow Directions: Fair Speech Pattern: Spontaneous Speech Memory Description: Remote Impaired and Episodic Impaired Hallucinations: Auditory Delusions: Paranoid Ideation Thought Process: Distracted Thought Content: positive for Thought Blocking Depressive Symptoms: Diff. Making Decisions, Increased Irritability, Isolating-Friends/Family and Difficulty Concentrating Abnormal Motor Activity Signs and Symptoms: Restlessness Judgement: Poor Diagnostics Vital Signs (24Hr): BMI result Body Mass Index 27.6 Medications Medications Current Medications Acetaminophen (Acetaminophen 325 Mg Tablet) 650 mg PO Q6H PRN PRN Reason: Headache/Pain Mild Scale (1-3) Al Hydroxide/Mg Hydroxide (Magnesium Hydrox/Alum Hydrox 30 Ml Oral.Susp) 30 ml PO Q6H PRN PRN Reason: Heartburn/Nausea Hydroxyzine HCl (Hydroxyzine Hcl 25 Mg Tablet) 25 mg PO BEDTIME PRN PRN Reason: Anxiety Last Admin: 12/07/21 22:56 Dose: 25 mg Documented by: Lurasidone HCl (Lurasidone Hcl 40 Mg Tablet) 40 mg PO DAILY [facility] Last Admin: 12/08/21 08:30 Dose: 40 mg Documented by: Magnesium Hydroxide (Milk Of Magnesia 30 Ml Oral.Susp) 30 ml PO DAILY PRN PRN Reason: Constipation Nicotine Polacrilex (Nicotine Polacrilex 2 Mg Gum) 4 mg BUCCAL Q2H PRN PRN Reason: Nicotine Cravings Olanzapine (Olanzapine 5 Mg Tablet) 5 mg PO BID [facility] Last Admin: 12/08/21 08:30 Dose: Not Given Documented by: Olanzapine (Olanzapine Odt 10 Mg Tab.Rapdis) 10 mg TRANSLINGU Q8H PRN PRN Reason: agitation Pharmacy Consult (Consult Rx Perform Med Rec) 1 each MISCELLANE ONCE PRN PRN Reason: Consult order Trazodone HCl (Trazodone Hcl 50 Mg Tablet) 50 mg PO BEDTIME PRN PRN Reason: Insomnia Last Admin: 12/07/21 22:56 Dose: 50 mg Documented by: Allergies Allergies Allergy/AdvReac Type Severity Reaction Status Date / Time haloperidol [From Haldol] AdvReac Mild AGITATION Unverified 03/21/20 16:26 From Inderal Allergy Intermediate IRREGULAR Uncoded 03/21/20 16:26 HEARTBEAT Haldol Allergy Unknown Uncoded 12/04/19 00:00 Propanolol Allergy Unknown Uncoded 12/04/19 00:00 Assessment & Plan Assessment & Plan (1) Schizoaffective disorder: Qualifiers: Schizoaffective disorder type: unspecified Qualified Code(s): F25.9 - Schizoaffective disorder, unspecified Status: Acute Code(s): F25.9 - Schizoaffective disorder, unspecified Assessment and Plan: 61 yo female, history of schizoaffective disorder, with decompensation due to probable medication non-compliance. Pt struggling to take medications for the team upon admission-avoidant angry and unwilling to participate in formal interview. Agrees to let team know if she has needs that we may address. 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 Plan: Observe Continue current regime Section XIIB expires 12/05. Encourage voluntary treatment to re-establish baseline Diagnostics hopefully with alliance building. 12/04/ continue current treatment plan 12/05/[address] assigned 12/11/21. 12/07/21 continue current regime. Calmer today. 12/08/21 add Olanzapine 5 mg bid IM prn if refuses po Olanzapine I spent minutes with the patient and/or on the patient floor today, greater than?50% of which was spent counseling/coordinating care. Patient educated on: other Informed Consent: further education needed Reason for contiued inpatient stay Substantial Risk for: harm to self, harm to others, inability to function and rapid decompensation
[2021-12-08] MEDS: OLANZapine 10 MG VIAL 5 MG IM (21:20)
[2021-12-09] MEDS: Lurasidone HCl 40 MG TABLET PO (07:56)
[2021-12-09] MEDS: OLANZapine 5 MG TABLET PO ×2 (09:08→20:36)
--- NOTE | 2021-12-09 17:09 | P.PNPSI_ITS ---
Subjective Subjective Date of Service: 12/09/21 Reason For Visit: Psychosis Subjective Notes: Section 7 Healthcare Proxy: No Guardianship: Yes Medical Problems Affecting Mental Status: No Interim History: Met with pt at her request. She has increased tolerance for brief meetings and today was alert, oriented ,calm and well-engaged. She reports Olanzapine is helpful and agrees with bid dosing She asks when Latuda will come off patent so she may take advantage of generic pricing. Much improved today. Reports voices in Right ear with tinnitus in both ears at times. Will follow up with tinnitus in out patient she reports. Visable in milieu, quiet, remains somewhat isolative but calm, oriented and grounded and participating in milieu activity. Medication Compliance: Yes Side effects from medications: No Attending Groups: Intermittent Review of Systems Acute medical concerns: No Medical Review of Systems: unchanged Review of Systems Psychiatric: Reports auditory hallucinations and Reports paranoia Mental Status Exam Mental Status Exam Patient Appearance: Appropriate Patient Orientation: Person and Place Level of Consciousness: Alert Patient Behavior: Talkative and Good Eye Contact Mood Description: Constricted Affect Description: Constricted Patient Cognition Impaired: No Ability to Follow Directions: Good Speech Pattern: Spontaneous Speech Memory Description: Remote Impaired and Episodic Impaired Hallucinations: Auditory Delusions: Paranoid Ideation Thought Process: Distracted Thought Content: positive for Intact, positive for Circumstantial, positive for Suicidal Ideation (denies) and positive for Homicidal Ideation (denies) Depressive Symptoms: Diff. Making Decisions Abnormal Motor Activity Signs and Symptoms: Restlessness Judgement: Good Diagnostics Vital Signs (24Hr): BMI result Body Mass Index 27.6 Medications Medications Current Medications Acetaminophen (Acetaminophen 325 Mg Tablet) 650 mg PO Q6H PRN PRN Reason: Headache/Pain Mild Scale (1-3) Al Hydroxide/Mg Hydroxide (Magnesium Hydrox/Alum Hydrox 30 Ml Oral.Susp) 30 ml PO Q6H PRN PRN Reason: Heartburn/Nausea Benztropine Mesylate (Benztropine Mesylate 0.5 Mg Tablet) 0.5 mg PO BID [facility] Hydroxyzine HCl (Hydroxyzine Hcl 25 Mg Tablet) 25 mg PO BEDTIME PRN PRN Reason: Anxiety Last Admin: 12/07/21 22:56 Dose: 25 mg Documented by: Lurasidone HCl (Lurasidone Hcl 40 Mg Tablet) 40 mg PO DAILY [facility] Last Admin: 12/09/21 07:56 Dose: 40 mg Documented by: Magnesium Hydroxide (Milk Of Magnesia 30 Ml Oral.Susp) 30 ml PO DAILY PRN PRN Reason: Constipation Nicotine Polacrilex (Nicotine Polacrilex 2 Mg Gum) 4 mg BUCCAL Q2H PRN PRN Reason: Nicotine Cravings Olanzapine (Olanzapine 5 Mg Tablet) 5 mg PO BID [facility] Last Admin: 12/09/21 09:08 Dose: 5 mg Documented by: Olanzapine (Olanzapine Odt 10 Mg Tab.Rapdis) 10 mg TRANSLINGU Q8H PRN PRN Reason: agitation Olanzapine (Olanzapine 10 Mg Vial) 5 mg IM BID PRN PRN Reason: If refuses PO Olanz-court orde Last Admin: 12/08/21 21:20 Dose: 5 mg Documented by: Pharmacy Consult (Consult Rx Perform Med Rec) 1 each MISCELLANE ONCE PRN PRN Reason: Consult order Trazodone HCl (Trazodone Hcl 50 Mg Tablet) 50 mg PO BEDTIME PRN PRN Reason: Insomnia Last Admin: 12/07/21 22:56 Dose: 50 mg Documented by: Allergies Allergies Allergy/AdvReac Type Severity Reaction Status Date / Time haloperidol [From Haldol] AdvReac Mild AGITATION Unverified 03/21/20 16:26 From Inderal Allergy Intermediate IRREGULAR Uncoded 03/21/20 16:26 HEARTBEAT Haldol Allergy Unknown Uncoded 12/04/19 00:00 Propanolol Allergy Unknown Uncoded 12/04/19 00:00 Assessment & Plan Assessment & Plan (1) Schizoaffective disorder: Qualifiers: Schizoaffective disorder type: unspecified Qualified Code(s): F25.9 - Schizoaffective disorder, unspecified Status: Acute Code(s): F25.9 - Schizoaffective disorder, unspecified Assessment and Plan: 61 yo female, history of schizoaffective disorder, with decompensation due to probable medication non-compliance. Pt struggling to take medications for the team upon admission-avoidant angry and unwilling to participate in formal interview. Agrees to let team know if she has needs that we may address. 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 Plan: Observe Continue current regime Section XIIB expires 12/05. Encourage voluntary treatment to re-establish baseline Diagnostics hopefully with alliance building. 12/04/ continue current treatment plan 12/05/[address] assigned 12/11/21. 12/07/21 continue current regime. Calmer today. 12/08/21 add Olanzapine 5 mg bid IM prn if refuses po Olanzapine 12/09/21-Olanzapine 5 mg bid po-pt agrees and finds this dosing helpful. I spent minutes with the patient and/or on the patient floor today, greater than?50% of which was spent counseling/coordinating care. Patient educated on: medication risk/benefits Informed Consent: understands Reason for contiued inpatient stay Substantial Risk for: inability to function and rapid decompensation
[2021-12-09 18:00] VITALS: RESP 16
[2021-12-09] MEDS: Benztropine Mesylate 0.5 MG TABLET PO (20:36)
[2021-12-10] MEDS: Benztropine Mesylate 0.5 MG TABLET PO ×2 (07:54→20:24)
[2021-12-10] MEDS: Lurasidone HCl 40 MG TABLET PO (07:54)
--- NOTE | 2021-12-10 18:04 | P.PNPSI_ITS ---
Subjective Subjective Date of Service: 12/10/21 Reason For Visit: Psychosis Subjective Notes: Section 7 Healthcare Proxy: No Guardianship: No Medical Problems Affecting Mental Status: No Interim History: Improving consistently. Alert, oriented, discussed medications today. Requests Latuda in the a.m. Olanzapine only in the evening with 5 mg daily prn. Discussed her concerns about generic Latuda being available (FDA has authorized the generic version and patent is noted to 2022-discussed with pt) Court postponed to 12/18. 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 12/15-which with current improvement is a possibility Medication Compliance: Yes Side effects from medications: No Attending Groups: No Review of Systems Acute medical concerns: No Medical Review of Systems: unchanged Review of Systems Psychiatric: Reports auditory hallucinations and Reports paranoia Mental Status Exam Mental Status Exam Patient Appearance: Appropriate Patient Orientation: Person and Place Level of Consciousness: Alert Patient Behavior: Talkative and Good Eye Contact Mood Description: Constricted Affect Description: Constricted Patient Cognition Impaired: No Ability to Follow Directions: Good Speech Pattern: Spontaneous Speech Memory Description: Remote Impaired and Episodic Impaired Hallucinations: Auditory (decreasing per pt report) Delusions: Paranoid Ideation (decreasing per pt report) Thought Process: Distracted Thought Content: positive for Intact, positive for Circumstantial, positive for Suicidal Ideation (denies) and positive for Homicidal Ideation (denies) Depressive Symptoms: Diff. Making Decisions Abnormal Motor Activity Signs and Symptoms: Restlessness Judgement: Good Diagnostics Vital Signs (24Hr): BMI result Body Mass Index 27.6 Medications Medications Current Medications Acetaminophen (Acetaminophen 325 Mg Tablet) 650 mg PO Q6H PRN PRN Reason: Headache/Pain Mild Scale (1-3) Al Hydroxide/Mg Hydroxide (Magnesium Hydrox/Alum Hydrox 30 Ml Oral.Susp) 30 ml PO Q6H PRN PRN Reason: Heartburn/Nausea Benztropine Mesylate (Benztropine Mesylate 0.5 Mg Tablet) 0.5 mg PO BID [facility] Last Admin: 12/10/21 07:54 Dose: 0.5 mg Hydroxyzine HCl (Hydroxyzine Hcl 25 Mg Tablet) 25 mg PO BEDTIME PRN PRN Reason: Anxiety Last Admin: 12/07/21 22:56 Dose: 25 mg Lurasidone HCl (Lurasidone Hcl 40 Mg Tablet) 40 mg PO DAILY [facility] Last Admin: 12/10/21 07:54 Dose: 40 mg Magnesium Hydroxide (Milk Of Magnesia 30 Ml Oral.Susp) 30 ml PO DAILY PRN PRN Reason: Constipation Nicotine Polacrilex (Nicotine Polacrilex 2 Mg Gum) 4 mg BUCCAL Q2H PRN PRN Reason: Nicotine Cravings Olanzapine (Olanzapine Odt 10 Mg Tab.Rapdis) 10 mg TRANSLINGU Q8H PRN PRN Reason: agitation Olanzapine (Olanzapine 10 Mg Vial) 5 mg IM BID PRN PRN Reason: If refuses PO Olanz-court orde Last Admin: 12/08/21 21:20 Dose: 5 mg Olanzapine (Olanzapine 5 Mg Tablet) 5 mg PO BEDTIME [facility] Olanzapine (Olanzapine 5 Mg Tablet) 5 mg PO DAILY PRN PRN Reason: agitation, anxiety Pharmacy Consult (Consult Rx Perform Med Rec) 1 each MISCELLANE ONCE PRN PRN Reason: Consult order Trazodone HCl (Trazodone Hcl 50 Mg Tablet) 50 mg PO BEDTIME PRN PRN Reason: Insomnia Last Admin: 12/07/21 22:56 Dose: 50 mg Allergies Allergies Allergy/AdvReac Type Severity Reaction Status Date / Time haloperidol [From Haldol] AdvReac Mild AGITATION Unverified 03/21/20 16:26 From Inderal Allergy Intermediate IRREGULAR Uncoded 03/21/20 16:26 HEARTBEAT Haldol Allergy Unknown Uncoded 12/04/19 00:00 Propanolol Allergy Unknown Uncoded 12/04/19 00:00 Assessment & Plan Assessment & Plan (1) Schizoaffective disorder: Qualifiers: Schizoaffective disorder type: unspecified Qualified Code(s): F25.9 - Schizoaffective disorder, unspecified Status: Acute Code(s): F25.9 - Schizoaffective disorder, unspecified Assessment and Plan: 61 yo female, history of schizoaffective disorder, with decompensation due to probable medication non-compliance. Pt struggling to take medications for the team upon admission-avoidant angry and unwilling to participate in formal interview. Agrees to let team know if she has needs that we may address. 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 Plan: Observe Continue current regime Section XIIB expires 12/05. Encourage voluntary treatment to re-establish baseline Diagnostics hopefully with alliance building. 12/04/ continue current treatment plan 12/05/[address] assigned 12/11/21. 12/07/21 continue current regime. Calmer today. 12/08/21 add Olanzapine 5 mg bid IM prn if refuses po Olanzapine 12/09/21-Olanzapine 5 mg bid po-pt agrees and finds this dosing helpful. 12/10/21-Olanzapine 5 mg HS Olanzapine 5 mg daily prn Discontinue Olanzapine 5 [address] Continue [address] postponed until 12/18-possible discharge 12/15. I spent minutes with the patient and/or on the patient floor today, gre ater than?50% of which was spent counseling/coordinating care. Patient educated on: medication risk/benefits Informed Consent: understands and further education needed Reason for contiued inpatient stay Substantial Risk for: inability to function and rapid decompensation
[2021-12-10] MEDS: OLANZapine 5 MG TABLET PO (20:26)
[2021-12-11] MEDS: Benztropine Mesylate 0.5 MG TABLET PO ×2 (08:01→20:30)
[2021-12-11] MEDS: Lurasidone HCl 40 MG TABLET PO (08:01)
--- NOTE | 2021-12-11 14:45 | HO.PSYCHPN ---
Subjective Subjective Date of Service: 12/11/21 Reason For Visit: Psychosis Subjective Notes: Section 7 Healthcare Proxy: No Guardianship: Yes Medical Problems Affecting Mental Status: No Interim History: Pt with no questions or concerns today. I am feeling good . Visable in the milieu Mood is without lability, agitation. Interactive with peers/team Medication Compliance: Yes Side effects from medications: No Attending Groups: No Review of Systems Acute medical concerns: No Medical Review of Systems: unchanged Review of Systems Psychiatric: Reports paranoia Mental Status Exam Mental Status Exam Patient Appearance: Appropriate Patient Orientation: Person, Place and Situation Level of Consciousness: Alert Patient Behavior: Talkative and Good Eye Contact Mood Description: Constricted Affect Description: Constricted Patient Cognition Impaired: No Ability to Follow Directions: Good Speech Pattern: Spontaneous Speech Memory Description: Remote Impaired and Episodic Impaired Delusions: Paranoid Ideation (decreasing per pt report) Thought Process: Slowed Thinking Thought Content: positive for Intact, positive for Circumstantial, positive for Suicidal Ideation (denies) and positive for Homicidal Ideation (denies) Judgement: Fair Diagnostics Vital Signs (24Hr): BMI result Body Mass Index 27.6 Medications Medications Current Medications Acetaminophen (Acetaminophen 325 Mg Tablet) 650 mg PO Q6H PRN PRN Reason: Headache/Pain Mild Scale (1-3) Al Hydroxide/Mg Hydroxide (Magnesium Hydrox/Alum Hydrox 30 Ml Oral.Susp) 30 ml PO Q6H PRN PRN Reason: Heartburn/Nausea Benztropine Mesylate (Benztropine Mesylate 0.5 Mg Tablet) 0.5 mg PO BID ANNA Last Admin: 12/11/21 08:01 Dose: 0.5 mg Hydroxyzine HCl (Hydroxyzine Hcl 25 Mg Tablet) 25 mg PO BEDTIME PRN PRN Reason: Anxiety Last Admin: 12/07/21 22:56 Dose: 25 mg Lurasidone HCl (Lurasidone Hcl 40 Mg Tablet) 40 mg PO DAILY ANNA Last Admin: 12/11/21 08:01 Dose: 40 mg Magnesium Hydroxide (Milk Of Magnesia 30 Ml Oral.Susp) 30 ml PO DAILY PRN PRN Reason: Constipation Nicotine Polacrilex (Nicotine Polacrilex 2 Mg Gum) 4 mg BUCCAL Q2H PRN PRN Reason: Nicotine Cravings Olanzapine (Olanzapine Odt 10 Mg Tab.Rapdis) 10 mg TRANSLINGU Q8H PRN PRN Reason: agitation Olanzapine (Olanzapine 5 Mg Tablet) 5 mg PO BEDTIME ANNA Last Admin: 12/10/21 20:26 Dose: 5 mg Olanzapine (Olanzapine 5 Mg Tablet) 5 mg PO DAILY PRN PRN Reason: agitation, anxiety Olanzapine (Olanzapine 10 Mg Vial) 5 mg IM BEDTIME PRN PRN Reason: If refuses PO [facility] Consult (Consult Rx Perform Med Rec) 1 each MISCELLANE ONCE PRN PRN Reason: Consult order Trazodone HCl (Trazodone Hcl 50 Mg Tablet) 50 mg PO BEDTIME PRN PRN Reason: Insomnia Last Admin: 12/07/21 22:56 Dose: 50 mg Allergies Allergies Allergy/AdvReac Type Severity Reaction Status Date / Time haloperidol [From Haldol] AdvReac Mild AGITATION Unverified 03/21/20 16:26 From Inderal Allergy Intermediate IRREGULAR Uncoded 03/21/20 16:26 HEARTBEAT Haldol Allergy Unknown Uncoded 12/04/19 00:00 Propanolol Allergy Unknown Uncoded 12/04/19 00:00 Assessment & Plan Assessment & Plan (1) Schizoaffective disorder: Qualifiers: Schizoaffective disorder type: unspecified Qualified Code(s): F25.9 - Schizoaffective disorder, unspecified Status: Acute Code(s): F25.9 - Schizoaffective disorder, unspecified Assessment and Plan: 61 yo female, history of schizoaffective disorder, with decompensation due to probable medication non-compliance. Pt struggling to take medications for the team upon admission-avoidant angry and unwilling to participate in formal interview. Agrees to let team know if she has needs that we may address. No labs/diagnostics completed [employer] EM[employer]OYMENT [employer] d/t refusal. Plan: Observe Continue current regime Section XIIB expires 12/05. Encourage voluntary treatment to re-establish baseline Diagnostics hopefully with alliance building. continue current treatment plan 12/05/[address] assigned 12/11/21. 12/07/21 continue current regime. Calmer today. 12/08/21 add Olanzapine 5 mg bid IM prn if refuses po Olanzapine 12/09/21-Olanzapine 5 mg bid po-pt agrees and finds this dosing helpful. 12/10/21-Olanzapine 5 mg HS Olanzapine 5 mg daily prn Discontinue Olanzapine [address] Continue [address] postponed until 12/18-possible discharge 12/15. 12/11/21- Continue current plan of care I spent minutes with the patient and/or on the patient floor today, greater than?50% of which was spent counseling/coordinating care. Reason for contiued inpatient stay Substantial Risk for: inability to function and rapid decompensation
[2021-12-11] MEDS: OLANZapine 5 MG TABLET PO (20:30)
[2021-12-12] MEDS: Lurasidone HCl 40 MG TABLET PO (08:35)
[2021-12-12] MEDS: Benztropine Mesylate 0.5 MG TABLET PO ×2 (08:35→20:34)
--- NOTE | 2021-12-12 17:16 | HO.PSYCHPN ---
Subjective Subjective Date of Service: 12/12/21 Reason For Visit: Psychosis Interim History: Initially patient did not want to talk to tag writer, keeping her back to him and saying she wanted to finish her food. Tight Barrel Inspector later came in and patient was lying down on her bed with her eyes closed. She kept her eyes closed throughout the interview. She said she was doing really well and was sleeping well and feeling safe on the unit. She denied any complaints and had no requests. Patient wanted to get back to resting and interview was concluded. Staff corroborates that although she mostly keeps to herself, she has remained in good behavioral control. Mental Status Exam Mental Status Exam Patient Appearance: Appropriate Patient Orientation: Person, Place and Situation Level of Consciousness: Alert Patient Behavior: Uncooperative (mildly) and Poor Eye Contact Mood Description: Withdrawn Affect Description: Constricted Patient Cognition Impaired: No Ability to Follow Directions: Fair Speech Pattern: Clear and Spontaneous Speech Memory Description: Remote Impaired and Episodic Impaired Hallucinations: Auditory Delusions: Paranoid Ideation (decreasing per pt report) Thought Process: Slowed Thinking Thought Content: positive for Intact, positive for Goal Oriented, positive for Suicidal Ideation (denies) and positive for Homicidal Ideation (denies) Judgement: Fair Diagnostics Vital Signs (24Hr): BMI result Body Mass Index 27.6 Medications Medications Current Medications Acetaminophen (Acetaminophen 325 Mg Tablet) 650 mg PO Q6H PRN PRN Reason: Headache/Pain Mild Scale (1-3) Al Hydroxide/Mg Hydroxide (Magnesium Hydrox/Alum Hydrox 30 Ml Oral.Susp) 30 ml PO Q6H PRN PRN Reason: Heartburn/Nausea Benztropine Mesylate (Benztropine Mesylate 0.5 Mg Tablet) 0.5 mg PO BID [facility] Last Admin: 12/12/21 08:35 Dose: 0.5 mg Hydroxyzine HCl (Hydroxyzine Hcl 25 Mg Tablet) 25 mg PO BEDTIME PRN PRN Reason: Anxiety Last Admin: 12/07/21 22:56 Dose: 25 mg Lurasidone HCl (Lurasidone Hcl 40 Mg Tablet) 40 mg PO DAILY [facility] Last Admin: 12/12/21 08:35 Dose: 40 mg Magnesium Hydroxide (Milk Of Magnesia 30 Ml Oral.Susp) 30 ml PO DAILY PRN PRN Reason: Constipation Nicotine Polacrilex (Nicotine Polacrilex 2 Mg Gum) 4 mg BUCCAL Q2H PRN PRN Reason: Nicotine Cravings Olanzapine (Olanzapine Odt 10 Mg Tab.Rapdis) 10 mg TRANSLINGU Q8H PRN PRN Reason: agitation Olanzapine (Olanzapine 5 Mg Tablet) 5 mg PO BEDTIME ANNA Last Admin: 12/11/21 20:30 Dose: 5 mg Olanzapine (Olanzapine 5 Mg Tablet) 5 mg PO DAILY PRN PRN Reason: agitation, anxiety Olanzapine (Olanzapine 10 Mg Vial) 5 mg IM BEDTIME PRN PRN Reason: If refuses PO [facility] Consult (Consult Rx Perform Med Rec) 1 each MISCELLANE ONCE PRN PRN Reason: Consult order Trazodone HCl (Trazodone Hcl 50 Mg Tablet) 50 mg PO BEDTIME PRN PRN Reason: Insomnia Last Admin: 12/07/21 22:56 Dose: 50 mg Allergies Allergies Allergy/AdvReac Type Severity Reaction Status Date / Time haloperidol [From Haldol] AdvReac Mild AGITATION Unverified 03/21/20 16:26 From Inderal Allergy Intermediate IRREGULAR Uncoded 03/21/20 16:26 HEARTBEAT Haldol Allergy Unknown Uncoded 12/04/19 00:00 Propanolol Allergy Unknown Uncoded 12/04/19 00:00 Assessment & Plan Assessment & Plan (1) Schizoaffective disorder: Qualifiers: Schizoaffective disorder type: unspecified Qualified Code(s): F25.9 - Schizoaffective disorder, unspecified Status: Acute Code(s): F25.9 - Schizoaffective disorder, unspecified Assessment and Plan: 61 yo female, history of schizoaffective disorder, with decompensation due to probable medication non-compliance. Pt struggling to take medications for the team upon admission-avoidant angry and unwilling to participate in formal interview. Agrees to let team know if she has needs that we may address. 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 Plan: Observe Continue current regime Section XIIB expires 12/05. Encourage voluntary treatment to re-establish baseline Diagnostics hopefully with alliance building. 12/04/ continue current treatment plan 12/05/[address] assigned 12/11/21. 12/07/21 continue current regime. Calmer today. 12/08/21 add Olanzapine 5 mg bid IM prn if refuses po Olanzapine 12/09/21-Olanzapine 5 mg bid po-pt agrees and finds this dosing helpful. 12/10/21-Olanzapine 5 mg HS Olanzapine 5 mg daily prn Discontinue Olanzapine 5 mg a[address] Continue [address] postponed until 12/18-possible discharge 12/15. 12/11/21- Continue current plan of care 12/12/21- Continue current plan of care I spent minutes with the patient and/or on the patient floor today, greater than?50% of which was spent counseling/coordinating care. Reason for contiued inpatient stay Substantial Risk for: other
[2021-12-12] MEDS: OLANZapine 5 MG TABLET PO (20:34)
[2021-12-13] MEDS: Lurasidone HCl 40 MG TABLET PO (08:13)
[2021-12-13] MEDS: Benztropine Mesylate 0.5 MG TABLET PO ×2 (08:13→20:35)
[2021-12-13] MEDS: OLANZapine 5 MG TABLET PO (20:35)
--- NOTE | 2021-12-13 23:24 | P.PNPSI_ITS ---
Subjective Subjective Date of Service: 12/13/21 Reason For Visit: Psychosis Interim History: Patient seen and discussed. She offers no complaints today and reports she is feeling well. She denies SI. She is isolative. RN was concerned about her cheeking her medications because she went to the bathroom after med administration. Will do close mouth checks. She is suspicious of her medications. Continues paranoid. Review of Systems Review of Systems Yes Unobtainable due to mental status Reports behavioral changes Psychiatric: Reports behavioral changes, Reports difficulty concentrating, Reports auditory hallucinations, Reports irritability, Reports anhedonia, Reports mood swings and Reports paranoia Mental Status Exam Mental Status Exam Patient Appearance: Appropriate Patient Orientation: Person, Place and Situation Level of Consciousness: Alert Patient Behavior: Uncooperative (mildly) and Poor Eye Contact Mood Description: Withdrawn Affect Description: Constricted Patient Cognition Impaired: No Ability to Follow Directions: Fair Speech Pattern: Clear and Spontaneous Speech Memory Description: Remote Impaired and Episodic Impaired Diagnostics Vital Signs (24Hr): BMI result Body Mass Index 27.6 Medications Medications Current Medications Acetaminophen (Acetaminophen 325 Mg Tablet) 650 mg PO Q6H PRN PRN Reason: Headache/Pain Mild Scale (1-3) Al Hydroxide/Mg Hydroxide (Magnesium Hydrox/Alum Hydrox 30 Ml Oral.Susp) 30 ml PO Q6H PRN PRN Reason: Heartburn/Nausea Benztropine Mesylate (Benztropine Mesylate 0.5 Mg Tablet) 0.5 mg PO BID [facility] Last Admin: 12/13/21 20:35 Dose: 0.5 mg Hydroxyzine HCl (Hydroxyzine Hcl 25 Mg Tablet) 25 mg PO BEDTIME PRN PRN Reason: Anxiety Last Admin: 12/07/21 22:56 Dose: 25 mg Lurasidone HCl (Lurasidone Hcl 40 Mg Tablet) 40 mg PO DAILY [facility] [place] Last Admin: 12/13/21 08:13 Dose: 40 mg Magnesium Hydroxide (Milk Of Magnesia 30 Ml Oral.Susp) 30 ml PO DAILY PRN PRN Reason: Constipation Nicotine Polacrilex (Nicotine Polacrilex 2 Mg Gum) 4 mg BUCCAL Q2H PRN PRN Reason: Nicotine Cravings Olanzapine (Olanzapine Odt 10 Mg Tab.Rapdis) 10 mg TRANSLINGU Q8H PRN PRN Reason: agitation Olanzapine (Olanzapine 5 Mg Tablet) 5 mg PO BEDTIME [facility] [place] Last Admin: 12/13/21 20:35 Dose: 5 mg Olanzapine (Olanzapine 5 Mg Tablet) 5 mg PO DAILY PRN PRN Reason: agitation, anxiety Olanzapine (Olanzapine 10 Mg Vial) 5 mg IM BEDTIME PRN PRN Reason: If refuses PO [facility] Consult (Consult Rx Perform Med Rec) 1 each MISCELLANE ONCE PRN PRN Reason: Consult order Trazodone HCl (Trazodone Hcl 50 Mg Tablet) 50 mg PO BEDTIME PRN PRN Reason: Insomnia Last Admin: 12/07/21 22:56 Dose: 50 mg Allergies Allergies Allergy/AdvReac Type Severity Reaction Status Date / Time haloperidol [From Haldol] AdvReac Mild AGITATION Unverified 03/21/20 16:26 From Inderal Allergy Intermediate IRREGULAR Uncoded 03/21/20 16:26 HEARTBEAT Haldol Allergy Unknown Uncoded 12/04/19 00:00 Propanolol Allergy Unknown Uncoded 12/04/19 00:00 Assessment & Plan Assessment & Plan (1) Schizoaffective disorder: Qualifiers: Schizoaffective disorder type: unspecified Qualified Code(s): F25.9 - Schizoaffective disorder, unspecified Status: Acute Code(s): F25.9 - Schizoaffective disorder, unspecified Assessment and Plan: 61 yo female, history of schizoaffective disorder, with decompensation due to probable medication non-compliance. Pt struggling to take medications for the team upon admission-avoidant angry and unwilling to participate in formal interview. Agrees to let team know if she has needs that we may address. 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 Plan: Observe Continue current regime Section XIIB expires 12/05. Encourage voluntary treatment to re-establish baseline Diagnostics hopefully with alliance building. continue current treatment plan 12/05/[address] assigned 12/11/21. 12/07/21 continue current regime. Calmer today. 12/08/21 add Olanzapine 5 mg bid IM prn if refuses po Olanzapine 12/09/21-Olanzapine 5 mg bid po-pt agrees and finds this dosing helpful. 12/10/21-Olanzapine 5 mg HS Olanzapine 5 mg daily prn Discontinue Olanzapine 5 mg a[address] Continue [address] postponed until 12/18-possible discharge 12/15. 12/11/21- Continue current plan of care 12/12/21- Continue current plan of care 12/13/21- Continue current plan of care I spent minutes with the patient and/or on the patient floor today, grea ter than?50% of which was spent counseling/coordinating care. Reason for contiued inpatient stay Substantial Risk for: inability to function and rapid decompensation
[2021-12-14] MEDS: Lurasidone HCl 40 MG TABLET PO (08:08)
[2021-12-14] MEDS: Benztropine Mesylate 0.5 MG TABLET PO ×2 (08:08→19:41)
--- NOTE | 2021-12-14 14:01 | P.PNPSI_ITS ---
Subjective Subjective Date of Service: 12/14/21 Reason For Visit: Psychosis Interim History: Patient seen and discussed. She offers no complaints today and reports she is feeling well. She denies SI. She is isolative. She says I'm much better. I'm feeling pretty good When asked about hallucinations she says At a minimum. She remains preoccupied. Continues paranoid. Denies SI. Says she feels ready to go home. Review of Systems Review of Systems Yes Unobtainable due to mental status Reports behavioral changes Psychiatric: Reports behavioral changes, Reports difficulty concentrating, Repor ts auditory hallucinations, Reports irritability, Reports anhedonia, Reports mood swings and Reports paranoia Mental Status Exam Mental Status Exam Patient Appearance: Appropriate Patient Orientation: Person, Place and Situation Level of Consciousness: Alert Patient Behavior: Uncooperative (mildly) and Poor Eye Contact Mood Description: Withdrawn Affect Description: Constricted Patient Cognition Impaired: No Ability to Follow Directions: Fair Speech Pattern: Clear and Spontaneous Speech Memory Description: Remote Impaired and Episodic Impaired Hallucinations: Auditory ( at a minimum ) Delusions: Paranoid Ideation Thought Process: Distracted and Slowed Thinking Thought Content: positive for Poverty of Content and positive for Slowed Thinking Judgement: Fair Diagnostics Vital Signs (24Hr): BMI result Body Mass Index 27.6 Medications Medications Current Medications Acetaminophen (Acetaminophen 325 Mg Tablet) 650 mg PO Q6H PRN PRN Reason: Headache/Pain Mild Scale (1-3) Al Hydroxide/Mg Hydroxide (Magnesium Hydrox/Alum Hydrox 30 Ml Oral.Susp) 30 ml PO Q6H PRN PRN Reason: Heartburn/Nausea Benztropine Mesylate (Benztropine Mesylate 0.5 Mg Tablet) 0.5 mg PO BID [facility] Last Admin: 12/14/21 08:08 Dose: 0.5 mg Hydroxyzine HCl (Hydroxyzine Hcl 25 Mg Tablet) 25 mg PO BEDTIME PRN PRN Reason: Anxiety Last Admin: 12/07/21 22:56 Dose: 25 mg Lurasidone HCl (Lurasidone Hcl 40 Mg Tablet) 40 mg PO DAILY [facility] Last Admin: 12/14/21 08:08 Dose: 40 mg Magnesium Hydroxide (Milk Of Magnesia 30 Ml Oral.Susp) 30 ml PO DAILY PRN PRN Reason: Constipation Nicotine Polacrilex (Nicotine Polacrilex 2 Mg Gum) 4 mg BUCCAL Q2H PRN PRN Reason: Nicotine Cravings Olanzapine (Olanzapine Odt 10 Mg Tab.Rapdis) 10 mg TRANSLINGU Q8H PRN PRN Reason: agitation Olanzapine (Olanzapine 5 Mg Tablet) 5 mg PO BEDTIME ANNA Last Admin: 12/13/21 20:35 Dose: 5 mg Olanzapine (Olanzapine 5 Mg Tablet) 5 mg PO DAILY PRN PRN Reason: agitation, anxiety Olanzapine (Olanzapine 10 Mg Vial) 5 mg IM BEDTIME PRN PRN Reason: If refuses PO [facility] Consult (Consult Rx Perform Med Rec) 1 each MISCELLANE ONCE PRN PRN Reason: Consult order Trazodone HCl (Trazodone Hcl 50 Mg Tablet) 50 mg PO BEDTIME PRN PRN Reason: Insomnia Last Admin: 12/07/21 22:56 Dose: 50 mg Allergies Allergies Allergy/AdvReac Type Severity Reaction Status Date / Time haloperidol [From Haldol] AdvReac Mild AGITATION Unverified 03/21/20 16:26 From Inderal Allergy Intermediate IRREGULAR Uncoded 03/21/20 16:26 HEARTBEAT Haldol Allergy Unknown Uncoded 12/04/19 00:00 Propanolol Allergy Unknown Uncoded 12/04/19 00:00 Assessment & Plan Assessment & Plan (1) Schizoaffective disorder: Qualifiers: Schizoaffective disorder type: unspecified Qualified Code(s): F25.9 - Schizoaffective disorder, unspecified Status: Acute Code(s): F25.9 - Schizoaffective disorder, unspecified Assessment and Plan: 61 yo female, history of schizoaffective disorder, with decompensation due to probable medication non-compliance. Pt struggling to take medications for the team upon admission-avoidant angry and unwilling to participate in formal interview. Agrees to let team know if she has needs that we may address. 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 Plan: Observe Continue current regime Section XIIB expires 12/05. Encourage voluntary treatment to re-establish baseline Diagnostics hopefully with alliance building. 12/04/ continue current treatment plan 12/05/[address] assigned 12/11/21. 12/07/21 continue current regime. Calmer today. 12/08/21 add Olanzapine 5 mg bid IM prn if refuses po Olanzapine 12/09/21-Olanzapine 5 mg bid po-pt agrees and finds this dosing helpful. 12/10/21-Olanzapine 5 mg HS Olanzapine 5 mg daily prn Discontinue Olanzapine [address] Continue [address] postponed until 12/18-possible discharge 12/15. 12/11/21- Continue current plan of care 12/12/21- Continue current plan of care 12/13/21- Continue current plan of care 12/14 continue plan of care I spent minutes with the patient and/or on the patient floor today, greater than?50% of which was spent counseling/coordinating care. Reason for contiued inpatient stay Substantial Risk for: inability to function and rapid decompensation
[2021-12-14] MEDS: OLANZapine 5 MG TABLET PO (19:41)
[2021-12-15] MEDS: Lurasidone HCl 40 MG TABLET PO (07:50)
[2021-12-15] MEDS: Benztropine Mesylate 0.5 MG TABLET PO ×2 (07:50→21:14)
--- NOTE | 2021-12-15 18:09 | P.PNPSI_ITS ---
Subjective Subjective Date of Service: 12/15/21 Reason For Visit: Psychosis Subjective Notes: Section 7 Healthcare Proxy: No Guardianship: Yes Medical Problems Affecting Mental Status: No Interim History: Team reports a reasonable weekend with some baseline paranoia. Team reported concern about pt not taking meds (cheeking). Discussed with pt who is upset with this idea and denies that she acted in this way. Pt is asking for discharge. Discussed increasing Olanzapine back to 5 mg bid as it did manage her symptoms well. She agrees. Refuses all diagnostics, agrees to VNA follow up. Medication Compliance: Yes Side effects from medications: No Attending Groups: Intermittent Review of Systems Acute medical concerns: No Medical Review of Systems: unchanged Review of Systems Psychiatric: Reports anhedonia, Reports paranoia and Reports suicidal ideation (denies) Mental Status Exam Mental Status Exam Patient Appearance: Appropriate Patient Orientation: Person, Place, Time and Situation Level of Consciousness: Alert Patient Behavior: Guarded and Good Eye Contact Mood Description: Calm and Withdrawn Affect Description: Calm and Withdrawn Patient Cognition Impaired: No Ability to Follow Directions: Good Speech Pattern: Spontaneous Speech Memory Description: Episodic Impaired Hallucinations: None (denies, no evidence of response) Delusions: Not Present Thought Process: Goal Oriented Thought Content: positive for Hernandez, positive for Circumstantial and positive for Preoccupation Judgement: Good Diagnostics Vital Signs (24Hr): BMI result Body Mass Index 27.6 Labs Labs: Pt refused all diagnostics. Medications Medications Current Medications Acetaminophen (Acetaminophen 325 Mg Tablet) 650 mg PO Q6H PRN PRN Reason: Headache/Pain Mild Scale (1-3) Al Hydroxide/Mg Hydroxide (Magnesium Hydrox/Alum Hydrox 30 Ml Oral.Susp) 30 ml PO Q6H PRN PRN Reason: Heartburn/Nausea Benztropine Mesylate (Benztropine Mesylate 0.5 Mg Tablet) 0.5 mg PO BID [facility] Last Admin: 12/15/21 07:50 Dose: 0.5 mg Hydroxyzine HCl (Hydroxyzine Hcl 25 Mg Tablet) 25 mg PO BEDTIME PRN PRN Reason: Anxiety Last Admin: 12/07/21 22:56 Dose: 25 mg Lurasidone HCl (Lurasidone Hcl 40 Mg Tablet) 40 mg PO DAILY ANNA Last Admin: 12/15/21 07:50 Dose: 40 mg Magnesium Hydroxide (Milk Of Magnesia 30 Ml Oral.Susp) 30 ml PO DAILY PRN PRN Reason: Constipation Nicotine Polacrilex (Nicotine Polacrilex 2 Mg Gum) 4 mg BUCCAL Q2H PRN PRN Reason: Nicotine Cravings Olanzapine (Olanzapine Odt 10 Mg Tab.Rapdis) 10 mg TRANSLINGU Q8H PRN PRN Reason: agitation Olanzapine (Olanzapine 5 Mg Tablet) 5 mg PO BEDTIME ANNA Last Admin: 12/14/21 19:41 Dose: 5 mg Olanzapine (Olanzapine 5 Mg Tablet) 5 mg PO DAILY PRN PRN Reason: agitation, anxiety Olanzapine (Olanzapine 10 Mg Vial) 5 mg IM BEDTIME PRN PRN Reason: If refuses PO [facility] Consult (Consult Rx Perform Med Rec) 1 each MISCELLANE ONCE PRN PRN Reason: Consult order Trazodone HCl (Trazodone Hcl 50 Mg Tablet) 50 mg PO BEDTIME PRN PRN Reason: Insomnia Last Admin: 12/07/21 22:56 Dose: 50 mg Allergies Allergies Allergy/AdvReac Type Severity Reaction Status Date / Time haloperidol [From Haldol] AdvReac Mild AGITATION Unverified 03/21/20 16:26 From Inderal Allergy Intermediate IRREGULAR Uncoded 03/21/20 16:26 HEARTBEAT Haldol Allergy Unknown Uncoded 12/04/19 00:00 Propanolol Allergy Unknown Uncoded 12/04/19 00:00 Assessment & Plan Assessment & Plan (1) Schizoaffective disorder: Qualifiers: Schizoaffective disorder type: unspecified Qualified Code(s): F25.9 - Schizoaffective disorder, unspecified Status: Acute Code(s): F25.9 - Schizoaffective disorder, unspecified Assessment and Plan: 61 yo female, history of schizoaffective disorder, with decompensation due to probable medication non-compliance. Pt struggling to take medications for the team upon admission-avoidant angry and unwilling to participate in formal interview. Agrees to let team know if she has needs that we may address. No labs/diagnostics completed [employer] d/t refusal. Plan: Observe Continue current regime Section XIIB expires 12/05. Encourage voluntary treatment to re-establish baseline Diagnostics hopefully with alliance building. 12/04/ continue current treatment plan 12/05/[address] 12/11/21. 12/07/21 continue current regime. Calmer today. 12/08/21 add Olanzapine 5 mg bid IM prn if refuses po Olanzapine 12/09/21-Olanzapine 5 mg bid po-pt agrees and finds this dosing helpful. 12/10/21-Olanzapine 5 mg HS Olanzapine 5 mg daily prn Discontinue Olanzapine [address] postponed until 12/18-possible discharge 12/15. 12/11/21- Continue current plan of care 12/12/21- Continue current plan of care 12/13/21- Continue current plan of care 12/14 continue plan of care 12/15/21 Discharge 12/16. I spent minutes with the patient and/or on the patient floor today, greater than?50% of which was spent counseling/coordinating care. Patient educated on: medication risk/benefits, therapeutic strategies and medical condition Informed Consent: understands and further education needed Reason for contiued inpatient stay Substantial Risk for: harm to self and rapid decompensation
[2021-12-15] MEDS: OLANZapine 5 MG TABLET PO (21:14)
[2021-12-16] MEDS: Benztropine Mesylate 0.5 MG TABLET PO (07:50)
[2021-12-16] MEDS: Lurasidone HCl 40 MG TABLET PO (07:50)
--- NOTE | 2021-12-16 15:58 | PM.PSYDC ---
DS: Providers Provider Date of Service: 12/16/21 Date of admission: 12/03/21 00:23 Date of discharge: 12/16/21 Primary care physician: Unknown Physician Admitting clinician: Jessica Nunez Attending physician on admission: Ney Irvin Attending physician on discharge: Ney Irvin Discharging clinician: Jessica Nunez DS: Diagnosis Discharge Diagnosis (1) Schizoaffective disorder: Status: Acute DS: Medications Discharge Medications Home Medications: Previous Rx's Medication Instructions Recorded benztropine 0.5 mg tablet 0.5 mg PO BID #60 tabs 12/16/21 lurasidone 40 mg tablet (Latuda) 40 mg PO DAILY #30 tabs 12/16/21 olanzapine 5 mg tablet 5 mg PO BID #60 tabs 12/16/21 Mental Status Exam Mental Status Exam Patient Appearance: Appropriate Patient Orientation: Person, Place, Time and Situation Level of Consciousness: Alert Patient Behavior: Guarded and Good Eye Contact Mood Description: Calm and Withdrawn Affect Description: Calm and Withdrawn Patient Cognition Impaired: No Ability to Follow Directions: Good Speech Pattern: Spontaneous Speech Memory Description: Episodic Impaired Hallucinations: None (denies, no evidence of response) Delusions: Not Present Thought Process: Goal Oriented Thought Content: positive for [place], positive for Circumstantial and positive for Preoccupation Judgement: Good DS: Summary Hospital Course Hospital Course: Admission to adult psychiatry for exacerbation of symptoms of schizoaffective disorder, bipolar type. Pt has a community [facility]. Initially uncooperative with plan of care. Out patient team was consulted. Section 7 filed. Team was able to negotiate with Jhon to add Olanzapine to scheduled Latuda, which improved symptoms of psychosis. Section 8 was not required, pt recompensated and was able to discharge to her home with services. Her regime is within the parameters of the [facility] and she will return to her out patient team for ongoing management. Time spent discussing smoking cessation with patient: 3 to 10 minutes Status at Discharge Functional status at discharge: independent ambulation Overall status at discharge: patient is progressing back to baseline Time Spent with Patient Time attestation: Total time spent providing and/or coordinating discharge services: 35 Time spent: Greater than 30 minutes Discharge Plan Discharge Patient Disposition: Home, Self-Care Discharge Diagnosis: Schizoaffective Disorder Referrals: Homecare VNA [Other] - 12/16/21 3:00 pm (VNA nurse will be Andreea Hicks, she will come 3x weekly on MWF @ 3 PM.) Psych Prescriber: Rod Seo ([facility]) [Other] - 12/18/21 3:00 pm (*In office* ) [facility] Data Collection Interviewer: Tala Hernandez ([place] [facility]) [Other] - 12/24/21 10:00 am Kimberly Leiva MD [Physician] - 12/23/21 9:20 am Discharge Medications: New benztropine 0.5 mg Tablet 0.5 mg PO BID Qty: 60 0RF olanzapine 5 mg tablet 5 mg PO BID Qty: 60 0RF Latuda 40 mg Tablet 40 mg PO DAILY Qty: 30 0RF Discontinued Latuda 40 mg tablet 1 tab PO DAILY Discharge Orders: Discharge Order (Routine); Ordered 12/16/21 Ordered By: Jessica Nunez Diet: Advance to usual diet Activity on Discharge: As tolerated Stand Alone Forms: Patient Portal Discharge page, Community Support Care Plan Goals: Stabilization of mood and thought process Health Concerns: Schizoaffective Disorder Plan of Treatment: Attend scheduled appointments Take medications as directed You have refused all lab work and EKG during your hospitalization. You are overdue for these tests. Follow up with your primary care physician Crisis Team [phone] if needed Call/Return if needed Assessment: Alert, oriented, non-suicidal, non-psychotic. Discharge Date/Time: 12/16/21 11:25
== END 2021-12-16 11:25 | disposition home or self-care (01) | DRG 885 ==
LOC: HO.ED 13:45 → HO.PM5 12-03 00:24
PROVIDERS: Admitting Provider Psychiatry & Neurology Psychiatry; Emergency Provider Emergency Medicine; Visit Provider Clinical Nurse Specialist Psychiatric/Mental Health, Adult
DX: F25.9 Schizoaffective disorder, unspecified (principal); Z79.899 Other long term (current) drug therapy
CPT/HCPCS: 87635; 92950; 96372; 99285; J2060; Q0163

== ENCOUNTER 2022-01-31 15:53 | Inpatient (IN) | payer OTHER, SELFPAY ==
[2022-01-31] VITALS (10 sets, daily range): BP systolic 130; BP diastolic 61; PULSE 96–133; RESP 16–18; TEMP 37.2; O2SAT 98; BMI 27.3
--- NOTE | 2022-01-31 16:00 | ECG_ITS ---
Test Reason : AMS Blood Pressure : / mmHG Vent. Rate : 113 BPM Atrial Rate : 113 BPM P-R Int : 146 ms QRS Dur : 080 ms QT Int : 362 ms P-R-T Axes : 082 066 068 degrees QTc Int : 496 ms Sinus tachycardia Otherwise normal ECG When compared with ECG of 29-MAR-2020 11:59, No significant change was found Referred By: Luz Woods Electronically Signed By:JASON WILLAMS
--- NOTE | 2022-01-31 16:03 | ED.GENADULT ---
HPI - General Adult General Chief complaint: Altered Mental Status Stated complaint: AMS,UNABLE TO ANSWER QUEST,FOUND BY C[facility] [facility] Time Seen by Provider: 01/31/22 15:54 Source: EMS and police Mode of arrival: EMS Limitations: altered mental status History of Present Illness HPI narrative: Patient's emergency room via EMS and accompanied by police department, patient is on a Section 12. Earlier today, employees at the local [employer] noticed that the patient was outside, walking around, incoherent, unclear if she was intoxicated. Patient was very confused, speaking incoherently. When police department and EMS arrived, patient decided to stop talking and has not said much since then. Patient is did not want to get on the stretcher, PD assisted her to the ambulance. On arrival to the emergency room, patient is refusing to talk, refuses vitals. Not following directions. Reviewing patient's medical records, patient has history of schizophrenia. Related Data Previous Rx's Medication Instructions Recorded benztropine 0.5 mg tablet 0.5 mg PO BID #60 tabs 12/16/21 lurasidone 40 mg tablet (Latuda) 40 mg PO DAILY #30 tabs 12/16/21 olanzapine 5 mg tablet 5 mg PO BID #60 tabs 12/16/21 Allergies Allergy/AdvReac Type Severity Reaction Status Date / Time haloperidol [From Haldol] AdvReac Mild AGITATION Verified 01/31/22 16:01 From Inderal Allergy Intermediate IRREGULAR Uncoded 03/21/20 16:26 HEARTBEAT Haldol Allergy Unknown Agitated Uncoded 01/31/22 16:01 Propanolol Allergy Unknown Unknown Uncoded 01/31/22 16:01 Review of Systems Review of Systems: Yes Unobtainable due to mental status [facility] Past Medical History Medical History Schizoaffective disorder Social History Social History (Updated 12/01/21 @ 09:17 by Mabel Delgadillo DO) Patient Tobacco Use Status: Tobacco use Unknown Advance Directives: No Advance Directives Information Provided: Yes service: No Sexual orientation: Did not discuss Physical Exam ED Vital Signs: Vital Signs - 24 hr 01/31/22 16:01 01/31/22 16:05 01/31/22 18:58 Temperature 98.9 F 98.9 F Pulse Rate 112 H 108 H 133 H Respiratory Rate 16 16 18 Blood Pressure 130/61 130/61 Pulse Oximetry 98 98 Oxygen Delivery Method Room Air Room Air 01/31/22 19:13 01/31/22 19:29 01/31/22 19:31 Temperature Pulse Rate 96 133 H 96 Respiratory Rate 16 18 18 Blood Pressure Pulse Oximetry Oxygen Delivery Method 01/31/22 19:32 01/31/22 20:22 01/31/22 20:22 Temperature Pulse Rate Respiratory Rate 18 18 16 Blood Pressure Pulse Oximetry Oxygen Delivery Method 01/31/22 19:43 01/31/22 19:58 Temperature Pulse Rate Respiratory Rate 18 16 Blood Pressure Pulse Oximetry Oxygen Delivery Method BMI result Body Mass Index 27.3 Const Other: Appearance: Alert. No acute distress, unwilling to talk, not following directions Eyes: Pupils equal, round and reactive to light. ENT: Pharynx normal. Very dry oral mucosa, cracked lips Neck: Normal inspection. Neck supple. No lymph nodes noted. No crepitus CVS: Normal heart rate and rhythm. Pulses normal. Normal S1 and S2 Respiratory: No respiratory distress. Breath sounds normal. No Wheezing. No rales Abdomen: Soft and nontender. No rigidity. No distention. Skin: Skin warm and dry. Normal skin color. Normal skin turgor. Extremities: No lower extremity edema. No Lacerations. No Rash Neuro: Patient not cooperating, CN 2 through 12 grossly intact Psych: calm, times playing possum, at times cooperative, not talking Course Course Course Narrative: At this time, we are obtaining labs, giving the patient IV fluids, she seems to be very dry. When patient was taken to CT scan, patient started talking, screaming, swearing. Trying to swing and hit the CT scan techs. Patient was returned to her room. Patient is fully awake, cranial nerves 2-12 are grossly, does not seem to have any focal neurological deficits. Patient is screaming, talking to herself, pressured speech, tangential speech. Unable toredirect the patient. Patient did receive 1 dose of IM diphenhydramine, olanzapine and Geodon Patient's labs have been reviewed. Urinalysis and U tox pending. [facility] consult pending. Patient very likely will be a bed search. Physician observation started at 19:00 [facility] evaluated the patient at 1 in the morning. Patient told N that the patient feels much better, states she was ?given something? when she arrived to emergency room and now she feels better. However, patient refused the rest of the assessment. Patient will be reassessed in the morning. Medical Decision Making Lab Data Result diagrams: 01/31/22 16:10 01/31/22 16:10 Labs: Lab Results 01/31/22 01/31/22 01/31/22 Range/Units 16:10 16:10 16:10 WBC 7.7 (4.8-10.8) X10*3/uL RBC 4.47 (4.20-5.50) X10*6/uL Hgb 13.9 (12.0-16.0) g/dl Hct 42.5 (37.0-47.0) % MCV 95.1 (80.0-98.0) fL MCH 31.1 (27.0-33.0) pg MCHC 32.7 (31.0-35.0) g/dl RDW 12.8 (11.0-16.0) % Plt Count 214 (160-400) X10*3/uL MPV 11.3 (9.4-12.3) fL Immature Gran % (Auto) 0.3 (0.0-0.4) % Neut % (Auto) 78.2 H (45-73) % Lymph % (Auto) 17.0 L (20-40) % Clarke % (Auto) 4.0 (2-11) % Eos % (Auto) 0.0 (0-4) % Baso % (Auto) 0.5 (0-2) % Lymph # (Auto) 1.3 (1.2-4.9) X10*3/uL Clarke # (Auto) 0.3 (0.1-1.2) X10*3/uL Eos # (Auto) 0.0 (0.0-0.4) X10*3/uL Baso # (Auto) 0.0 (0.0-0.2) X10*3/uL Abs Immat Gran (auto) 0.02 (0.00-0.03) X10*3/uL Absolute Neuts (auto) 6.0 (2.0-8.3) x10*3/uL Absolute Nucleated RBC 0.000 (0.0-0.012) X10*3/uL Nucleated RBC % (auto) 0.0 (0.0-0.2) /100WBC PT 12.6 (10.0-13.1) SEC INR 1.1 (0.9-1.1) Sodium Cancelled Potassium Cancelled Chloride Cancelled Carbon Dioxide Cancelled Anion Gap Cancelled BUN Cancelled Creatinine Cancelled Estim Creat Clear Calc Cancelled Estimated GFR Cancelled Random Glucose Cancelled Calcium Cancelled Magnesium Cancelled Total Bilirubin Cancelled Direct Bilirubin Cancelled AST Cancelled ALT Cancelled Alkaline Phosphatase Cancelled Ammonia (13-55) umol/L Troponin I High Sens (<3.5-17.0) ng/L Total Protein Cancelled Albumin Cancelled Urine Color Urine Appearance Urine pH (5.0-8.0) Ur Specific [place] (1.005-1.025) Urine Protein (NEG-TRACE) MG/DL Urine Glucose (UA) (NEG) MG/DL Urine Ketones (NEG) MG/DL Urine Blood (NEG) Urine Nitrite (NEG) Ur Leukocyte Esterase (NEG) Urine RBC (0) /HPF Urine WBC (0-4) /HPF Ur Squamous Epith Cells /LPF Urine Bacteria /LPF Urine Opiates Screen (Not Detect) Urine Fentanyl Screen (Not Detect) Ur Barbiturates Screen (Not Detect) Ur Phencyclidine Scrn (Not Detect) Ur Amphetamines Screen (Not Detect) U Benzodiazepines Scrn (Not Detect) Urine Cocaine Screen (Not Detect) U Marijuana (THC) Screen (Not Detect) Ethyl Alcohol mg/dL COVID-19 (RIDDHI) (Negative) COVID-19 Clin Com 01/31/22 01/31/22 01/31/22 Range/Units 16:10 16:10 16:10 WBC (4.8-10.8) X10*3/uL RBC (4.20-5.50) X10*6/uL Hgb (12.0-16.0) g/dl Hct (37.0-47.0) % MCV (80.0-98.0) fL MCH (27.0-33.0) pg MCHC (31.0-35.0) g/dl RDW (11.0-16.0) % Plt Count (160-400) X10*3/uL MPV (9.4-12.3) fL Immature Gran % (Auto) (0.0-0.4) % Neut % (Auto) (45-73) % Lymph % (Auto) (20-40) % Clarke % (Auto) (2-11) % Eos % (Auto) (0-4) % Baso % (Auto) (0-2) % Lymph # (Auto) (1.2-4.9) X10*3/uL Clarke # (Auto) (0.1-1.2) X10*3/uL Eos # (Auto) (0.0-0.4) X10*3/uL Baso # (Auto) (0.0-0.2) X10*3/uL Abs Immat Gran (auto) (0.00-0.03) X10*3/uL Absolute Neuts (auto) (2.0-8.3) x10*3/uL Absolute Nucleated RBC (0.0-0.012) X10*3/uL Nucleated RBC % (auto) (0.0-0.2) /100WBC PT (10.0-13.1) SEC INR (0.9-1.1) Sodium 141 Potassium 3.3 Chloride 102 Carbon Dioxide 13 L Anion Gap 29 H BUN 13 Creatinine 1.05 Estim Creat Clear Calc 59.3 Estimated GFR 53 Random Glucose 99 Calcium 9.4 Magnesium 1.7 Total Bilirubin 0.7 Direct Bilirubin 0.4 AST 24 ALT 19 Alkaline Phosphatase 66 Ammonia (13-55) umol/L Troponin I High Sens 5.9 (<3.5-17.0) ng/L Total Protein 6.7 Albumin 4.1 Urine Color Urine Appearance Urine pH (5.0-8.0) Ur Specific [place] (1.005-1.025) Urine Protein (NEG-TRACE) MG/DL Urine Glucose (UA) (NEG) MG/DL Urine Ketones (NEG) MG/DL Urine Blood (NEG) Urine Nitrite (NEG) Ur Leukocyte Esterase (NEG) Urine RBC (0) /HPF Urine WBC (0-4) /HPF Ur Squamous Epith Cells /LPF Urine Bacteria /LPF Urine Opiates Screen (Not Detect) Urine Fentanyl Screen (Not Detect) Ur Barbiturates Screen (Not Detect) Ur Phencyclidine Scrn (Not Detect) Ur Amphetamines Screen (Not Detect) U Benzodiazepines Scrn (Not Detect) Urine Cocaine Screen (Not Detect) U Marijuana (THC) Screen (Not Detect) Ethyl Alcohol < 10 mg/dL COVID-19 (RIDDHI) Negative (Negative) COVID-19 Clin Com See Note 01/31/22 01/31/22 01/31/22 Range/Units 16:10 21:09 21:09 WBC (4.8-10.8) X10*3/uL RBC (4.20-5.50) X10*6/uL Hgb (12.0-16.0) g/dl Hct (37.0-47.0) % MCV (80.0-98.0) fL MCH (27.0-33.0) pg MCHC (31.0-35.0) g/dl RDW (11.0-16.0) % Plt Count (160-400) X10*3/uL MPV (9.4-12.3) fL Immature Gran % (Auto) (0.0-0.4) % Neut % (Auto) (45-73) % Lymph % (Auto) (20-40) % Clarke % (Auto) (2-11) % Eos % (Auto) (0-4) % Baso % (Auto) (0-2) % Lymph # (Auto) (1.2-4.9) X10*3/uL Clarke # (Auto) (0.1-1.2) X10*3/uL Eos # (Auto) (0.0-0.4) X10*3/uL Baso # (Auto) (0.0-0.2) X10*3/uL Abs Immat Gran (auto) (0.00-0.03) X10*3/uL Absolute Neuts (auto) (2.0-8.3) x10*3/uL Absolute Nucleated RBC (0.0-0.012) X10*3/uL Nucleated RBC % (auto) (0.0-0.2) /100WBC PT (10.0-13.1) SEC INR (0.9-1.1) Sodium Potassium Chloride Carbon Dioxide Anion Gap BUN Creatinine Estim Creat Clear Calc Estimated GFR Random Glucose Calcium Magnesium Total Bilirubin Direct Bilirubin AST ALT Alkaline Phosphatase Ammonia 22 (13-55) umol/L Troponin I High Sens (<3.5-17.0) ng/L Total Protein Albumin Urine Color STRAW Urine Appearance CLEAR Urine pH 5.5 (5.0-8.0) Ur Specific [place] <= 1.005 (1.005-1.025) Urine Protein NEG (NEG-TRACE) MG/DL Urine Glucose (UA) NEG (NEG) MG/DL Urine Ketones 40 (NEG) MG/DL Urine Blood NEG (NEG) Urine Nitrite NEG (NEG) Ur Leukocyte Esterase 1+ H (NEG) Urine RBC 0 (0) /HPF Urine WBC 0-2 (0-4) /HPF Ur Squamous Epith Cells 1+ /LPF Urine Bacteria 1+ /LPF Urine Opiates Screen Not Detected (Not Detect) Urine Fentanyl Screen Not Detected (Not Detect) Ur Barbiturates Screen Not Detected (Not Detect) Ur Phencyclidine Scrn Not Detected (Not Detect) Ur Amphetamines Screen Not Detected (Not Detect) U Benzodiazepines Scrn Not Detected (Not Detect) Urine Cocaine Screen Not Detected (Not Detect) U Marijuana (THC) Screen Not Detected (Not Detect) Ethyl Alcohol mg/dL COVID-19 (RIDDHI) (Negative) COVID-19 Clin Com Discharge Plan Discharge Clinical Impression: Manic behavior Patient Disposition: Still a Patient Prescriptions: No Action benztropine 0.5 mg Tablet 0.5 mg PO BID Qty: 60 0RF olanzapine 5 mg tablet 5 mg PO BID Qty: 60 0RF Latuda 40 mg Tablet 40 mg PO DAILY Qty: 30 0RF
[2022-01-31 16:17] LABS: MANUAL DIFF FLAG NO
--- NOTE | 2022-01-31 16:17 | PC.NURSE ---
pt unresponsive to questions - section 12 by PD, intermittent laughing/incoherent speech, vss - sinus tach, RR even and unlabored, ekg monitor tech applied, labs drawn, 20G IV placed left AC. tech in room performing EKG.
[2022-01-31 16:21] LABS: Basophils Percent Auto 0.5 % (0-2); Hematocrit 42.5 % (37.0-47.0); Hemoglobin 13.9 g/dl (12.0-16.0); Imm Gran Abs Auto 0.02 X10*3/uL (0.00-0.03); Imm Gran Pct Auto 0.3 % (0.0-0.4); Lymphocytes Absolute Auto 1.3 X10*3/uL (1.2-4.9); Mean Corpuscular HGB Conc 32.7 g/dl (31.0-35.0); Mean Corpuscular Hemoglobin 31.1 pg (27.0-33.0); Mean Corpuscular Volume 95.1 fL (80.0-98.0); Mean Platelet Volume 11.3 fL (9.4-12.3); Monocytes Absolute Auto 0.3 X10*3/uL (0.1-1.2); Neutrophils Percent Auto 78.2 % (45-73); Platelet Count 214 X10*3/uL (160-400); Red Blood Count 4.47 X10*6/uL (4.20-5.50); Red Cell Distribution Width 12.8 % (11.0-16.0); White Blood Count 7.7 X10*3/uL (4.8-10.8)
[2022-01-31] MEDS: 0.9 % Sodium Chloride 2,000 ML 999 ML IVCONT (16:21)
[2022-01-31 16:27] LABS: Ammonia 22 umol/L (13-55); INTERNATIONAL NORM RATIO 1.1 (0.9-1.1); Prothrombin Time 12.6 SEC (10.0-13.1)
[2022-01-31 16:34] LABS: COVID-19 Test Negative (Negative)
[2022-01-31 16:42] LABS: Ethanol < 10 mg/dL
[2022-01-31 16:51] LABS: Troponin-I High Sensitivity 5.9 ng/L (<3.5-17.0)
[2022-01-31 17:30] LABS: Alanine Aminotransferase 19 U/L (0-31); Albumin Level 4.1 g/dL (3.5-5.0); Alkaline Phosphatase 66 U/L (39-117); Anion Gap 29 (12-20); Aspartate Amino Transferase 24 U/L (5-31); Bilirubin Direct 0.4 mg/dL (0.0-0.5); Bilirubin Total 0.7 mg/dL (0.0-1.0); Blood Urea Nitrogen 13 mg/dL (9-16); Calcium 9.4 mg/dL (8.4-10.2); Carbon Dioxide 13 mmol/L (22-29); Chloride 102 mmol/L (96-108); Creatinine Clr Calc Pharmacy 59.3; Estimated Glomerular Filt Rate 53; Glucose Random 99 mg/dL (60-115); Magnesium 1.7 mg/dL (1.6-2.6); Potassium 3.3 mmol/L (3.3-5.1); Sodium 141 mmol/L (135-145); Total Protein 6.7 g/dL (6.5-8.0)
[2022-01-31] MEDS: OLANZapine 10 MG VIAL IM (19:00)
[2022-01-31] MEDS: diphenhydrAMINE HCL 50 MG/ML VIAL IM (19:00)
[2022-01-31] MEDS: Ziprasidone Mesylate 20 MG VIAL IM (19:00)
--- NOTE | 2022-01-31 19:28 | PC.NURSE ---
Patient is s/p chemical restraint, just got transferred to ED POD from main ED in wheelchair, patient appears confused at this time, [facility] referral completed/confirmed/pending ETA, per pharmacy claim history is of her latuda and olanzapine for months, will continue to monitor.
[2022-01-31 21:16] LABS: Appearance Urine CLEAR; Color Urine STRAW; Glucose Urine UA NEG (NEG); Leukocyte Esterase Urine 1+ (NEG); Nitrite Urine NEG (NEG); PH 5.5 (5.0-8.0); Specific Gravity - Urine <= 1.005 (1.005-1.025); UACC Culture Trigger YES; Urine Blood NEG (NEG); Urine Ketones 40 MG/DL (NEG); Urine Protein NEG (NEG-TRACE)
[2022-01-31 21:28] LABS: Bacteria Urine 1+ /LPF; RBC Urine 0 /HPF (0); Squamous Epithelial Cell Urine 1+ /LPF; WBC Urine 0-2 /HPF (0-4)
[2022-01-31 21:31] LABS: Amphetamine Screen Urine Not Detected (Not Detect); Barbiturates, Urine Not Detected (Not Detect); Benzodiazepines Screen Urine Not Detected (Not Detect); Cannabinoid Screen Urine Not Detected (Not Detect); Cocaine Screen Urine Not Detected (Not Detect); Fentanyl, urine Not Detected (Not Detect); Opiate Screen Urine Not Detected (Not Detect); Phencyclidine Screen Urine Not Detected (Not Detect)
--- NOTE | 2022-02-01 06:42 | PC.NURSE ---
Patient slept most part of the night, no distress observed/reported, med rec completed/pending provider's approval, patient was not compliant with BHN during evaluation, NEETA F/U in the morning, behavior unpredictable and erratic, will continue to monitor.
--- NOTE | 2022-02-01 07:07 | PC.NURSE ---
patient awake and seated in common areas, often making sweet toned insulting comments toward staff periodically when she makes multiple requests for snacks, watching tv at present in common area, patient appears in no distress
--- NOTE | 2022-02-01 08:59 | PC.NURSE ---
client somewhat intrusive, making unsolicited unusual comments when peers are interacted with (when giving peers meds, contradictory without solicitation)
[2022-02-01 20:21] VITALS: PULSE 85; RESP 20; TEMP 36.6; O2SAT 100
--- NOTE | 2022-02-02 06:38 | PC.NURSE ---
Patient slept intermittently, when awake patient self dialogues vigorously, thought content completely paranoid, thought process incoherent and tangential, refusing medication, behavior erratic but non concerning at this time, VSS, disposition per [facility] is section 12 inpatient bed search, will continue to monitor
--- NOTE | 2022-02-02 09:57 | PC.NURSE ---
SAT WITH PATIENT FOR AWHILE THIS MORNING TRIED TO ENCOURAGE PT TO TAKE MORNING MEDICATIONS AND EAT BREAKFAST, PT JUST SAT STARING OFF AND WOULD NOT ANSWER ANY QUESTIONS OR EAT. PT REFUSED TO TAKE MEDICATIONS WELL
--- NOTE | 2022-02-02 13:22 | PC.NURSE ---
Patient refusing vitals and to speak with this RN
--- NOTE | 2022-02-02 14:11 | PC.NURSE ---
Attempt made to see pt for individual OT session however pt found to be in a manic state with pressured nonsensical speech and does not make eye contact of engage with this functional tester typewriters at this time. Pts attending nurse notified and aware of pts current mood.
--- NOTE | 2022-02-02 15:09 | PC.NURSE ---
Attempted to get Covid test which patient refused and became agitated
[2022-02-02 16:28] LABS: IDNOW Serial# 16C4AD1C
[2022-02-02 16:29] LABS: COVID-19 Test Negative (Negative)
--- NOTE | 2022-02-03 00:53 | PC.ADMIT ---
A single, Lao speaking, white female aged 61 years of age was admitted to the [facility] at 1745 as a Section 12B following referral from [facility] Pt is known to [facility] with a number of admissions here. Pt was brought [place] [facility] on a section 12 via EMS and [place] [employer] on 01/31/22 following being observed speaking incoherently a
--- NOTE | 2022-02-03 01:03 | PC.ADMIT ---
An Albanian-speaking, single, white, female aged 61 years was [facility] at 1745 as a section 12B following referral from [facility] ED and N. Pt is known to staff on and has a number of inpatient psychiatric hospitalizations. Pt was brought to [facility] ED via section 12 by EMS and [place] [employer] after being observed in a [employer] in the community speaking incoherently with an altered mental status. When police and frit mixer and burner arrived pt stopped talking and became unresponsive and uncooperative. At the ED the behaviors continued with intermittent laughing. Pt was unable to follow instructions, became severely agitated, delusional and threatening. Pt was in a medication restraint on 01/31/22; during admission assessment pt briefly spoke about the restraint but was unable to describe the events that led up to it. On admission pt refused to allow BP to be assessed and refused to participate in the admission. Pts speech was pressured, disorganized and very rapid. Pt repeated the word kinky numerous time in conversation and was also focused on germs. Pt has a Bharat's order that is reported to on 08/06/22. Pt last filled prescribed meds on 10/13/21 and is last thought to have taken medications in December. Pt lives in an apartment in [place]. Pt has a PCP and psychiatric provider. Pt has a guardian and [facility] services. On M5 pt has been isolative to room and is self-dialoguing. Pt was able to state she is not suicidal and she can seek help from staff, but was unable to participate beyond that. Medical issues include a history of Galactorrhea. [id number] done, treatment plan done and admitting orders obtained. Pt still needs to complete Safety Tool. Pt is resting quietly in room on 15 minute safety checks at this time.
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
[2022-02-03 18:00] VITALS: RESP 16
[2022-02-03] MEDS: hydrOXYzine HCL 25 MG TABLET PO (21:43)
[2022-02-03] MEDS: diphenhydrAMINE HCl 12.5 MG/5 ML LIQUID 50 MG PO (23:55)
--- NOTE | 2022-02-04 12:10 | PC.NURSE ---
Pt declined to have NRT. Did not indicate that she smokes due to mental status
[2022-02-04] MEDS: OLANZapine 10 MG VIAL IM (13:50)
--- NOTE | 2022-02-04 17:24 | HO.PSYCHPN ---
Subjective Subjective Date of Service: 02/04/22 Reason For Visit: Schizoaffective disorder-Bipolar type Subjective Notes: Section 12B Healthcare Proxy: No Guardianship: Yes Medical Problems Affecting Mental Status: No Interim History: Bharat's guardianship clarified. Section VII prepared to be filed. Pt refusing medications. Given Olanzapine IM after Zydis was offered. Slapped a sales team leader, labile, verbally abusive, targeting, tangential, nonsensical conversations, screaming at team and peers, verbally abusive, responding to internal stimuli, self-dialoguing. Medication Compliance: No Side effects from medications: No Attending Groups: No Review of Systems Acute medical concerns: No Medical Review of Systems: unchanged Review of Systems Reports behavioral changes, Reports confusion and Reports memory loss Psychiatric: Reports behavioral changes, Reports confusion, Reports depression, Reports difficulty concentrating, Reports auditory hallucinations, Reports irritability, Reports anhedonia, Reports memory loss, Reports mood swings and Reports paranoia Mental Status Exam Mental Status Exam Patient Appearance: Disheveled and Malodorous Patient Orientation: Person and Place Level of Consciousness: Alert Patient Behavior: Guarded, Talkative, Suspicious, Aggressive, Restless, Belligerent, Wandering, Verbal Threats, Swearing, Resistive to Care, Invasion - Personal Space, Avoidant, Combative, Distractible, Confused, Isolative, Good Eye Contact, Uncooperative, Impulsive and Pacing Mood Description: Hostile, Labile and Angry Affect Description: Labile and Angry Patient Cognition Impaired: Yes Ability to Follow Directions: Fair Speech Pattern: Spontaneous Speech, Rambling, Inappropriate, Loud, Delayed, Pressured, Includes Profanity and Poor Articulation Memory Description: Remote Impaired and Episodic Impaired Hallucinations: Auditory and Visual Delusions: Paranoid Ideation, Grandiose and Present Perceptual Disturbances: Depersonalization and Derealization Thought Process: Racing, Illogical and Distracted Thought Content: positive for Flight of Ideas, positive for Racing, positive for [place], positive for Circumstantial, positive for Perseveration, positive for Poverty of Content, positive for Preoccupation, positive for Thought Blocking, positive for Tangential and positive for Disorganized Depressive Symptoms: Increased Irritability, Unhappiness and Difficulty Concentrating Abnormal Motor Activity Signs and Symptoms: Aggression, Agitation, Hyperactivity and Restlessness Judgement: Poor Diagnostics Vital Signs (24Hr): Vital Signs - 24 hr 02/03/22 18:00 Respiratory Rate 16 BMI result Body Mass Index 27.3 Labs Results: 01/31/22 16:10 01/31/22 16:10 Medications Medications Current Medications Acetaminophen (Acetaminophen 325 Mg Tablet) 650 mg PO Q6H PRN PRN Reason: Headache/Pain Mild Scale (1-3) Al Hydroxide/Mg Hydroxide (Magnesium Hydrox/Alum Hydrox 30 Ml Oral.Susp) 30 ml PO Q6H PRN PRN Reason: Heartburn/Nausea Benztropine Mesylate (Benztropine Mesylate 0.5 Mg Tablet) 0.5 mg PO BID [facility] Last Admin: 02/04/22 09:15 Dose: Not Given Diphenhydramine HCl (Diphenhydramine Hcl 12.5 Mg/5 Ml Liquid) 50 mg PO BEDTIME PRN PRN Reason: insomnia Last Admin: 02/03/22 23:55 Dose: 50 mg Hydroxyzine HCl (Hydroxyzine Hcl 25 Mg Tablet) 25 mg PO Q6H PRN PRN Reason: Anxiety Last Admin: 02/03/22 21:43 Dose: 25 mg Lorazepam (Lorazepam 1 Mg Tablet) 1 mg PO BEDTIME PRN PRN Reason: insomnia Lurasidone HCl (Lurasidone Hcl 40 Mg Tablet) 40 mg PO DAILY [facility] Last Admin: 02/04/22 09:15 Dose: Not Given Magnesium Hydroxide (Milk Of Magnesia 30 Ml Oral.Susp) 30 ml PO DAILY PRN PRN Reason: Constipation Olanzapine (Olanzapine 5 Mg Tablet) 5 mg PO BID [facility] Last Admin: 02/04/22 08:30 Dose: Not Given Olanzapine (Olanzapine Odt 10 Mg Tab.Rapdis) 10 mg TRANSLINGU Q8H PRN PRN Reason: psychotic agitation Olanzapine (Olanzapine 10 Mg Vial) 10 mg IM DAILY PRN PRN Reason: if pt refuses Latuda perRogers Trazodone HCl (Trazodone Hcl 50 Mg Tablet) 50 mg PO BEDTIME PRN PRN Reason: Insomnia Allergies Allergies Allergy/AdvReac Type Severity Reaction Status Date / Time haloperidol [From Haldol] AdvReac Mild AGITATION Verified 01/31/22 16:01 From Inderal Allergy Intermediate IRREGULAR Uncoded 03/21/20 16:26 HEARTBEAT Haldol Allergy Unknown Agitated Uncoded 01/31/22 16:01 Propanolol Allergy Unknown Unknown Uncoded 01/31/22 16:01 Assessment & Plan Assessment & Plan (1) Schizoaffective disorder: Qualifiers: Schizoaffective disorder type: unspecified Qualified Code(s): F25.9 - Schizoaffective disorder, unspecified Status: Acute Code(s): F25.9 - Schizoaffective disorder, unspecified Assessment and Plan: 61 yo female, history of schizoaffective disorder, bipolar type. Pt found incoherent in [employer] with confusion, lability of mood, delusional content. Assisted to hospital with police. Today, labile, angry and significantly abusive on the unit with agitation, pacing, swearing, threatening, disrobing and confusion. Bharat's guardianship in place. Section 12B in place to 02/05. Plan: Pt has refused all diagnostics. Continue current regime, which follows Bharat's order. Pt asks for sleep medication, declines Trazodone. Ativan 1 mg HS prn insomnia Probable section 01/09 Collateral contacts. 02/04/22 Bharat's guardianship clarified. Latuda 40 mg daily. If pt refuses Olanzapine 10 mg IM Will file Section VII on 02/05. Attempt alliance building-currently pt is violent, psychotic, labile I spent minutes with the patient and/or on the patient floor today, greater than?50% of which was spent counseling/coordinating care. Informed Consent: does not understand Reason for contiued inpatient stay Substantial Risk for: harm to self, harm to others, inability to function and rapid decompensation
[2022-02-04 18:00] VITALS: PULSE 133; TEMP 36.9; O2SAT 99
[2022-02-04] MEDS: diphenhydrAMINE HCl 12.5 MG/5 ML LIQUID 50 MG PO (22:23)
[2022-02-05] MEDS: Benztropine Mesylate 0.5 MG TABLET PO ×2 (08:59→20:27)
[2022-02-05] MEDS: OLANZapine 5 MG TABLET PO ×2 (08:59→20:27)
[2022-02-05] MEDS: Lurasidone HCl 40 MG TABLET PO (08:59)
--- NOTE | 2022-02-05 13:04 | P.PNPSI_ITS ---
Subjective Subjective Date of Service: 02/05/22 Reason For Visit: Schizoaffective disorder-Bipolar type Subjective Notes: Section 7 Healthcare Proxy: No Guardianship: Yes Medical Problems Affecting Mental Status: No Interim History: Remains with sx of psychosis, agitation, verbal abuse, belligerence and intermittent threatening behavioral symptoms. Dismissive when approached. Angry, targeting and inappropriate. Behaviors attempted to be addressed, indicating that behaviors such as these place her at risk in the community-she responds that she does not care. [facility] has been in contact with team, indicating that pt stopped her regime upon discharge from her last admission, received a new VNA and was aggressive so the agency discharged her. She has been pacing, yelling and behaving in a manner which places herself and others at risk per neighbors reports prior to admission. Medication Compliance: Yes Side effects from medications: No Attending Groups: No Review of Systems Acute medical concerns: No Medical Review of Systems: unchanged Review of Systems Reports behavioral changes, Reports confusion and Reports memory loss Psychiatric: Reports behavioral changes, Reports confusion, Reports depression, Reports difficulty concentrating, Reports auditory hallucinations, Reports irritability, Reports anhedonia, Reports memory loss, Reports mood swings and Reports paranoia Mental Status Exam Mental Status Exam Patient Appearance: Disheveled and Malodorous Patient Orientation: Person and Place Level of Consciousness: Alert Patient Behavior: Guarded, Talkative, Suspicious, Aggressive, Restless, Belligerent, Wandering, Verbal Threats, Swearing, Resistive to Care, Invasion - Personal Space, Avoidant, Combative, Distractible, Confused, Isolative, Good Eye Contact, Uncooperative, Impulsive and Pacing Mood Description: Hostile, Labile and Angry Affect Description: Labile and Angry Patient Cognition Impaired: Yes Ability to Follow Directions: Fair Speech Pattern: Spontaneous Speech, Rambling, Inappropriate, Loud, Delayed, Pressured, Includes Profanity and Poor Articulation Memory Description: Remote Impaired and Episodic Impaired Hallucinations: Auditory and Visual Delusions: Paranoid Ideation, Grandiose and Present Perceptual Disturbances: Depersonalization and Derealization Thought Process: Racing, Illogical and Distracted Thought Content: positive for Flight of Ideas, positive for Racing, positive for [place], positive for Circumstantial, positive for Perseveration, positive for Poverty of Content, positive for Preoccupation, positive for Thought Blocking, positive for Tangential and positive for Disorganized Depressive Symptoms: Increased Irritability, Unhappiness and Difficulty Concentrating Abnormal Motor Activity Signs and Symptoms: Aggression, Agitation, Hyperactivity and Restlessness Judgement: Poor Diagnostics Vital Signs (24Hr): Vital Signs - 24 hr 02/04/22 18:00 Temperature 98.5 F Pulse Rate 133 H Pulse Oximetry 99 Oxygen Delivery Method Room Air BMI result Body Mass Index 0.0 Labs Results: 01/31/22 16:10 01/31/22 16:10 Medications Medications Current Medications Acetaminophen (Acetaminophen 325 Mg Tablet) 650 mg PO Q6H PRN PRN Reason: Headache/Pain Mild Scale (1-3) Al Hydroxide/Mg Hydroxide (Magnesium Hydrox/Alum Hydrox 30 Ml Oral.Susp) 30 ml PO Q6H PRN PRN Reason: Heartburn/Nausea Benztropine Mesylate (Benztropine Mesylate 0.5 Mg Tablet) 0.5 mg PO BID [facility] Last Admin: 02/05/22 08:59 Dose: 0.5 mg Diphenhydramine HCl (Diphenhydramine Hcl 12.5 Mg/5 Ml Liquid) 50 mg PO BEDTIME PRN PRN Reason: insomnia Last Admin: 02/04/22 22:23 Dose: 50 mg Hydroxyzine HCl (Hydroxyzine Hcl 25 Mg Tablet) 25 mg PO Q6H PRN PRN Reason: Anxiety Last Admin: 02/03/22 21:43 Dose: 25 mg Lorazepam (Lorazepam 1 Mg Tablet) 1 mg PO BEDTIME PRN PRN Reason: insomnia Lurasidone HCl (Lurasidone Hcl 40 Mg Tablet) 40 mg PO DAILY [facility] Last Admin: 02/05/22 08:59 Dose: 40 mg Magnesium Hydroxide (Milk Of Magnesia 30 Ml Oral.Susp) 30 ml PO DAILY PRN PRN Reason: Constipation Olanzapine (Olanzapine 5 Mg Tablet) 5 mg PO BID [facility] Last Admin: 02/05/22 08:59 Dose: 5 mg Olanzapine (Olanzapine Odt 10 Mg Tab.Rapdis) 10 mg TRANSLINGU Q8H PRN PRN Reason: psychotic agitation Olanzapine (Olanzapine 10 Mg Vial) 10 mg IM DAILY PRN PRN Reason: if pt refuses Latuda perRogers Trazodone HCl (Trazodone Hcl 50 Mg Tablet) 50 mg PO BEDTIME PRN PRN Reason: Insomnia Allergies Allergies Allergy/AdvReac Type Severity Reaction Status Date / Time haloperidol [From Haldol] AdvReac Mild AGITATION Verified 07/30/22 16:01 From Inderal Allergy Intermediate IRREGULAR Uncoded 03/21/20 16:26 HEARTBEAT Haldol Allergy Unknown Agitated Uncoded 01/31/22 16:01 Propanolol Allergy Unknown Unknown Uncoded 01/31/22 16:01 Assessment & Plan Assessment & Plan (1) Schizoaffective disorder: Qualifiers: Schizoaffective disorder type: unspecified Qualified Code(s): F25.9 - Schizoaffective disorder, unspecified Status: Acute Code(s): F25.9 - Schizoaffective disorder, unspecified Assessment and Plan: 61 yo female, history of schizoaffective disorder, bipolar type. Pt found incoherent in [employer] with confusion, lability of mood, delusional content. Assisted to hospital with police. Today, labile, angry and significantly abusive on the unit with agitation, pacing, swearing, threatening, disrobing and confusion. Bharat's guardianship in place. Section 12B in place to 02/05. Plan: Pt has refused all diagnostics. Continue current regime, which follows Bharat's order. Pt asks for sleep medication, declines Trazodone. Ativan 1 mg HS prn insomnia Probable section 01/09 Collateral contacts. 02/04/22 Bharat's guardianship clarified. Latuda 40 mg daily. If pt refuses Olanzapine 10 mg IM Will file Section VII on 02/05. Attempt alliance building-currently pt is violent, psychotic, labile 02/05/22 Continue current plan of care. I spent minutes with the patient and/or on the patient floor today, greater than?50% of which was spent counseling/coordinating care. Informed Consent: does not understand Reason for contiued inpatient stay Substantial Risk for: harm to self, harm to others, inability to function, rapid decompensation and med/psych decompensation
--- NOTE | 2022-02-05 13:04 | PC.NURSE ---
Patient reports she is non smoker. States she has never smoked. No NRT needed at this time.
[2022-02-05 17:00] VITALS: BP 129/79; PULSE 81; RESP 16; TEMP 36.4; O2SAT 99
[2022-02-06] MEDS: Benztropine Mesylate 0.5 MG TABLET PO ×2 (09:34→19:20)
[2022-02-06] MEDS: OLANZapine 5 MG TABLET PO ×2 (09:34→19:20)
[2022-02-06] MEDS: Lurasidone HCl 40 MG TABLET PO (09:34)
--- NOTE | 2022-02-06 17:04 | HO.PSYCHPN ---
Subjective Subjective Date of Service: 02/06/22 Reason For Visit: Schizoaffective disorder-Bipolar type Subjective Notes: Section 7 Healthcare Proxy: No Guardianship: Yes Medical Problems Affecting Mental Status: No Interim History: Pt met with her civil commitment securities attorney on 02/05. Remains psychotic, disorganized, verbally caustic, threatening at times. Agreed to allow animal control into her apartment to care for her cat. Medication Compliance: Yes Side effects from medications: No Attending Groups: No Review of Systems Acute medical concerns: No Medical Review of Systems: unchanged Review of Systems Reports behavioral changes, Reports confusion and Reports memory loss Psychiatric: Reports behavioral changes, Reports confusion, Reports depression, Reports difficulty concentrating, Reports auditory hallucinations, Reports irritability, Reports anhedonia, Reports memory loss, Reports mood swings, Reports paranoia and Reports hallucinations Mental Status Exam Mental Status Exam Patient Appearance: Disheveled and Malodorous Patient Orientation: Person and Place Level of Consciousness: Alert Patient Behavior: Guarded, Talkative, Suspicious, Aggressive, Restless, Belligerent, Wandering, Verbal Threats, Swearing, Resistive to Care, Invasion - Personal Space, Avoidant, Combative, Distractible, Confused, Isolative, Good Eye Contact, Uncooperative, Impulsive and Pacing Mood Description: Hostile, Labile and Angry Affect Description: Labile and Angry Patient Cognition Impaired: Yes Ability to Follow Directions: Fair Speech Pattern: Spontaneous Speech, Rambling, Inappropriate, Loud, Delayed, Pressured, Includes Profanity and Poor Articulation Memory Description: Remote Impaired and Episodic Impaired Hallucinations: Auditory and Visual Delusions: Paranoid Ideation, Grandiose and Present Perceptual Disturbances: Depersonalization and Derealization Thought Process: Racing, Illogical and Distracted Thought Content: positive for Flight of Ideas, positive for Racing, positive for [place], positive for Circumstantial, positive for Perseveration, positive for Poverty of Content, positive for Preoccupation, positive for Thought Blocking, positive for Tangential and positive for Disorganized Depressive Symptoms: Increased Irritability, Unhappiness and Difficulty Concentrating Abnormal Motor Activity Signs and Symptoms: Aggression, Agitation, Hyperactivity and Restlessness Judgement: Poor Diagnostics Vital Signs (24Hr): BMI result Body Mass Index 0.0 Labs Results: 01/31/22 16:10 01/31/22 16:10 Medications Medications Current Medications Acetaminophen (Acetaminophen 325 Mg Tablet) 650 mg PO Q6H PRN PRN Reason: Headache/Pain Mild Scale (1-3) Al Hydroxide/Mg Hydroxide (Magnesium Hydrox/Alum Hydrox 30 Ml Oral.Susp) 30 ml PO Q6H PRN PRN Reason: Heartburn/Nausea Benztropine Mesylate (Benztropine Mesylate 0.5 Mg Tablet) 0.5 mg PO BID [facility] Last Admin: 02/06/22 09:34 Dose: 0.5 mg Diphenhydramine HCl (Diphenhydramine Hcl 12.5 Mg/5 Ml Liquid) 50 mg PO BEDTIME PRN PRN Reason: insomnia Last Admin: 02/04/22 22:23 Dose: 50 mg Hydroxyzine HCl (Hydroxyzine Hcl 25 Mg Tablet) 25 mg PO Q6H PRN PRN Reason: Anxiety Last Admin: 02/03/22 21:43 Dose: 25 mg Lorazepam (Lorazepam 1 Mg Tablet) 1 mg PO BEDTIME PRN PRN Reason: insomnia Lurasidone HCl (Lurasidone Hcl 40 Mg Tablet) 40 mg PO DAILY [facility] Last Admin: 02/06/22 09:34 Dose: 40 mg Magnesium Hydroxide (Milk Of Magnesia 30 Ml Oral.Susp) 30 ml PO DAILY PRN PRN Reason: Constipation Olanzapine (Olanzapine 5 Mg Tablet) 5 mg PO BID [facility] Last Admin: 02/06/22 09:34 Dose: 5 mg Olanzapine (Olanzapine Odt 10 Mg Tab.Rapdis) 10 mg TRANSLINGU Q8H PRN PRN Reason: psychotic agitation Olanzapine (Olanzapine 10 Mg Vial) 10 mg IM DAILY PRN PRN Reason: if pt refuses Latuda perRogers Trazodone HCl (Trazodone Hcl 50 Mg Tablet) 50 mg PO BEDTIME PRN PRN Reason: Insomnia Allergies Allergies Allergy/AdvReac Type Severity Reaction Status Date / Time haloperidol [From Haldol] AdvReac Mild AGITATION Verified 01/31/22 16:01 From Inderal Allergy Intermediate IRREGULAR Uncoded 03/21/20 16:26 HEARTBEAT Haldol Allergy Unknown Agitated Uncoded 01/31/22 16:01 Propanolol Allergy Unknown Unknown Uncoded 01/31/22 16:01 Assessment & Plan Assessment & Plan (1) Schizoaffective disorder: Qualifiers: Schizoaffective disorder type: unspecified Qualified Code(s): F25.9 - Schizoaffective disorder, unspecified Status: Acute Code(s): F25.9 - Schizoaffective disorder, unspecified Assessment and Plan: 61 yo female, history of schizoaffective disorder, bipolar type. Pt found incoherent in [employer] with confusion, lability of mood, delusional content. Assisted to hospital with police. Today, labile, angry and significantly abusive on the unit with agitation, pacing, swearing, threatening, disrobing and confusion. Bharat's guardianship in place. Section 12B in place to 02/05. Plan: Pt has refused all diagnostics. Continue current regime, which follows Bharat's order. Pt asks for sleep medication, declines Trazodone. Ativan 1 mg HS prn insomnia Probable section 7/ Collateral contacts. 02/04/22 Bharat's guardianship clarified. Latuda 40 mg daily. If pt refuses Olanzapine 10 mg IM Will file Section VII on 02/05. Attempt alliance building-currently pt is violent, psychotic, labile 02/06/22 Support pt in the milieu Educate regarding behaviors which place her at risk in community Section 7, court 02/12/22. I spent minutes with the patient and/or on the patient floor today, greater than?50% of which was spent counseling/coordinating care. Patient educated on: therapeutic strategies Informed Consent: does not understand Reason for contiued inpatient stay Substantial Risk for: harm to self, harm to others, inability to function and rapid decompensation
[2022-02-06 17:52] VITALS: BP 109/78; PULSE 79; RESP 16; TEMP 36.6; O2SAT 99
[2022-02-07 06:00] VITALS: BP 137/84; PULSE 110; RESP 20; TEMP 36.8; O2SAT 97
--- NOTE | 2022-02-07 08:48 | PC.NURSE ---
Pt. continues to refuse to participate in completing the safety tool portion of her medical record. She has been asked at least once daily and often twice each day since admission.
[2022-02-07] MEDS: Lurasidone HCl 40 MG TABLET PO (10:09)
[2022-02-07] MEDS: Benztropine Mesylate 0.5 MG TABLET PO ×2 (10:09→19:54)
[2022-02-07] MEDS: OLANZapine 5 MG TABLET PO ×2 (10:11→19:54)
--- NOTE | 2022-02-07 23:27 | HO.PSYCHPN ---
Subjective Subjective Date of Service: 02/07/22 Reason For Visit: Schizoaffective disorder-Bipolar type Subjective Notes: [place] Warning Interim History: Patient seen and discussed with team. Patient evaluated today and upon interview pt reports she is doing fine, feeling safe. Says keep everything the same, doesnt want med changes. Pt declines further interview, asks me to walk away In the milieu, patient is safe but isolative and withdrawn in bx. Medication Compliance: Yes Side effects from medications: No Attending Groups: No Review of Systems Acute medical concerns: No Medical Review of Systems: unchanged Mental Status Exam Mental Status Exam Narrative: Patient Appearance: Disheveled and Malodorous Patient Orientation: Person and Place Level of Consciousness: Alert Patient Behavior: Guarded, Talkative, Suspicious, Aggressive, Restless, Belligerent, Wandering, Verbal Threats, Swearing, Resistive to Care, Invasion - Personal Space, Avoidant, Combative, Distractible, Confused, Isolative, Good Eye Contact, Uncooperative, Impulsive and Pacing Mood Description: Hostile, Labile and Angry Affect Description: Labile and Angry Patient Cognition Impaired: Yes Ability to Follow Directions: Fair Speech Pattern: Spontaneous Speech, Rambling, Inappropriate, Loud, Delayed, Pressured, Includes Profanity and Poor Articulation Memory Description: Remote Impaired and Episodic Impaired Hallucinations: Auditory and Visual Delusions: Paranoid Ideation, Grandiose and Present Perceptual Disturbances: Depersonalization and Derealization Thought Process: Racing, Illogical and Distracted Thought Content: positive for Flight of Ideas, positive for Racing, positive for [place], positive for Circumstantial, positive for Perseveration, positive for Poverty of Content, positive for Preoccupation, positive for Thought Blocking, positive for Tangential and positive for Disorganized Depressive Symptoms: Increased Irritability, Unhappiness and Difficulty Concentrating Abnormal Motor Activity Signs and Symptoms: Aggression, Agitation, Hyperactivity and Restlessness Judgment: Poor Diagnostics Vital Signs (24Hr): Vital Signs - 24 hr 02/08/22 16:28 Pulse Rate 101 H Blood Pressure 127/85 BMI result Body Mass Index 0.0 Labs Results: 01/31/22 16:10 01/31/22 16:10 Medications Medications Current Medications Acetaminophen (Acetaminophen 325 Mg Tablet) 650 mg PO Q6H PRN PRN Reason: Headache/Pain Mild Scale (1-3) Al Hydroxide/Mg Hydroxide (Magnesium Hydrox/Alum Hydrox 30 Ml Oral.Susp) 30 ml PO Q6H PRN PRN Reason: Heartburn/Nausea Benztropine Mesylate (Benztropine Mesylate 0.5 Mg Tablet) 0.5 mg PO BID ON LICENSE OF [facility] Last Admin: 02/08/22 08:13 Dose: 0.5 mg Diphenhydramine HCl (Diphenhydramine Hcl 12.5 Mg/5 Ml Liquid) 50 mg PO BEDTIME PRN PRN Reason: insomnia Last Admin: 02/04/22 22:23 Dose: 50 mg Hydroxyzine HCl (Hydroxyzine Hcl 25 Mg Tablet) 25 mg PO Q6H PRN PRN Reason: Anxiety Last Admin: 02/03/22 21:43 Dose: 25 mg Lorazepam (Lorazepam 1 Mg Tablet) 1 mg PO BEDTIME PRN PRN Reason: insomnia Lurasidone HCl (Lurasidone Hcl 40 Mg Tablet) 40 mg PO DAILY ON LICENSE OF [facility] Last Admin: 02/08/22 08:13 Dose: 40 mg Magnesium Hydroxide (Milk Of Magnesia 30 Ml Oral.Susp) 30 ml PO DAILY PRN PRN Reason: Constipation Olanzapine (Olanzapine 5 Mg Tablet) 5 mg PO BID ON LICENSE OF [facility] Last Admin: 02/08/22 08:13 Dose: 5 mg Olanzapine (Olanzapine Odt 10 Mg Tab.Rapdis) 10 mg TRANSLINGU Q8H PRN PRN Reason: psychotic agitation Olanzapine (Olanzapine 10 Mg Vial) 10 mg IM DAILY PRN PRN Reason: if pt refuses Latuda perRogers Trazodone HCl (Trazodone Hcl 50 Mg Tablet) 50 mg PO BEDTIME PRN PRN Reason: Insomnia Allergies Allergies Allergy/AdvReac Type Severity Reaction Status Date / Time haloperidol [From Haldol] AdvReac Mild AGITATION Verified 01/31/22 16:01 From Inderal Allergy Intermediate IRREGULAR Uncoded 03/21/20 16:26 HEARTBEAT Haldol Allergy Unknown Agitated Uncoded 01/31/22 16:01 Propanolol Allergy Unknown Unknown Uncoded 01/31/22 16:01 Assessment & Plan Assessment & Plan (1) Schizoaffective disorder: Qualifiers: Schizoaffective disorder type: unspecified Qualified Code(s): F25.9 - Schizoaffective disorder, unspecified Status: Acute Code(s): F25.9 - Schizoaffective disorder, unspecified Assessment and Plan: 61 yo female, history of schizoaffective disorder, bipolar type. Pt found incoherent in [employer] with confusion, lability of mood, delusional content. Assisted to hospital with police. Today, labile, angry and significantly abusive on the unit with agitation, pacing, swearing, threatening, disrobing and confusion. Bharat's guardianship in place. Section [address]B in place to 02/05. Plan: Pt has refused all diagnostics. Continue current regime, which follows Bharat's order. Pt asks for sleep medication, declines Trazodone. Ativan 1 mg HS prn insomnia Probable section 7/ Collateral contacts. 02/04/22 Bharat's guardianship clarified. Latuda 40 mg daily. If pt refuses Olanzapine 10 mg IM Will file Section VII on 02/05. Attempt alliance building-currently pt is violent, psychotic, labile 02/06/22 Support pt in the milieu Educate regarding behaviors which place her at risk in community Section 7, court 02/12/22. 02/07/22: No med changes, pt declines to engage I spent minutes with the patient and/or on the patient floor today, greater than?50% of which was spent counseling/coordinating care. Patient educated on: other Reason for contiued inpatient stay Substantial Risk for: inability to function, rapid decompensation and med/psych decompensation
[2022-02-08] MEDS: Lurasidone HCl 40 MG TABLET PO (08:13)
[2022-02-08] MEDS: OLANZapine 5 MG TABLET PO ×2 (08:13→18:53)
[2022-02-08] MEDS: Benztropine Mesylate 0.5 MG TABLET PO ×2 (08:13→18:53)
--- NOTE | 2022-02-08 12:51 | P.PNPSI_ITS ---
Subjective Subjective Date of Service: 02/08/22 Reason For Visit: Schizoaffective disorder-Bipolar type Subjective Notes: [place] Order and Section 12B Interim History: Chart reviewed. Discussed with Nursing. Very irritable with repairer typewriter. Stated current treatment was helpful as she was talking more and feeling more emotions. When asked to expand on same, became very irritable with repairer typewriter. Reports wanting to speak with her social worker aide tomorrow and her treatment team. Was misinterpreting things repairer typewriter was saying with patient. Medication Compliance: Yes Side effects from medications: No Attending Groups: No Review of Systems Acute medical concerns: No Review of Systems Review of Systems Yes Unobtainable due to mental status Mental Status Exam Mental Status Exam Narrative: In room. Poor self-care. Irritable. No evidence of SI or HI. Did appear paranoid. Insight and judgment limited Diagnostics Vital Signs (24Hr): BMI result Body Mass Index 0.0 Labs Results: 01/31/22 16:10 01/31/22 16:10 Medications Medications Current Medications Acetaminophen (Acetaminophen 325 Mg Tablet) 650 mg PO Q6H PRN PRN Reason: Headache/Pain Mild Scale (1-3) Al Hydroxide/Mg Hydroxide (Magnesium Hydrox/Alum Hydrox 30 Ml Oral.Susp) 30 ml PO Q6H PRN PRN Reason: Heartburn/Nausea Benztropine Mesylate (Benztropine Mesylate 0.5 Mg Tablet) 0.5 mg PO BID [facility] Last Admin: 02/08/22 08:13 Dose: 0.5 mg Diphenhydramine HCl (Diphenhydramine Hcl 12.5 Mg/5 Ml Liquid) 50 mg PO BEDTIME PRN PRN Reason: insomnia Last Admin: 02/04/22 22:23 Dose: 50 mg Hydroxyzine HCl (Hydroxyzine Hcl 25 Mg Tablet) 25 mg PO Q6H PRN PRN Reason: Anxiety Last Admin: 02/03/22 21:43 Dose: 25 mg Lorazepam (Lorazepam 1 Mg Tablet) 1 mg PO BEDTIME PRN PRN Reason: insomnia Lurasidone HCl (Lurasidone Hcl 40 Mg Tablet) 40 mg PO DAILY [facility] Last Admin: 02/08/22 08:13 Dose: 40 mg Magnesium Hydroxide (Milk Of Magnesia 30 Ml Oral.Susp) 30 ml PO DAILY PRN PRN Reason: Constipation Olanzapine (Olanzapine 5 Mg Tablet) 5 mg PO BID [facility] Last Admin: 02/08/22 08:13 Dose: 5 mg Olanzapine (Olanzapine Odt 10 Mg Tab.Rapdis) 10 mg TRANSLINGU Q8H PRN PRN Reason: psychotic agitation Olanzapine (Olanzapine 10 Mg Vial) 10 mg IM DAILY PRN PRN Reason: if pt refuses Latuda perRogers Trazodone HCl (Trazodone Hcl 50 Mg Tablet) 50 mg PO BEDTIME PRN PRN Reason: Insomnia Allergies Allergies Allergy/AdvReac Type Severity Reaction Status Date / Time haloperidol [From Haldol] AdvReac Mild AGITATION Verified 01/31/22 16:01 From Inderal Allergy Intermediate IRREGULAR Uncoded 03/21/20 16:26 HEARTBEAT Haldol Allergy Unknown Agitated Uncoded 01/31/22 16:01 Propanolol Allergy Unknown Unknown Uncoded 01/31/22 16:01 Assessment & Plan Assessment & Plan (1) Schizoaffective disorder: Qualifiers: Schizoaffective disorder type: unspecified Qualified Code(s): F25.9 - Schizoaffective disorder, unspecified Status: Acute Code(s): F25.9 - Schizoaffective disorder, unspecified Assessment and Plan: 61 yo female, history of schizoaffective disorder, bipolar type. Pt found incoherent in [facility] with confusion, lability of mood, delusional content. Assisted to hospital with police. Today, labile, angry and significantly abusive on the unit with agitation, pacing, swearing, threatening, disrobing and confusion. Bharat's guardianship in place. Section 12B in place to 02/05. Plan: Pt has refused all diagnostics. Continue current regime, which follows Bharat's order. Pt asks for sleep medication, declines Trazodone. Ativan 1 mg HS prn insomnia Probable section 01/09 Collateral contacts. 02/04/22 Bharat's guardianship clarified. Latuda 40 mg daily. If pt refuses Olanzapine 10 mg IM Will file Section VII on 02/05. Attempt alliance building-currently pt is violent, psychotic, labile 02/06/22 Support pt in the milieu Educate regarding behaviors which place her at risk in community Section 7, court 02/12/22. 02/08/2022: No changes to current treatment plan. I spent minutes with the patient and/or on the patient floor today, greater than?50% of which was spent counseling/coordinating care. Reason for contiued inpatient stay Substantial Risk for: inability to function
[2022-02-08 16:28] VITALS: BP 127/85; PULSE 101
[2022-02-09 06:00] VITALS: PULSE 96; TEMP 36.6; O2SAT 97
[2022-02-09] MEDS: OLANZapine 5 MG TABLET PO (08:15)
[2022-02-09] MEDS: Lurasidone HCl 40 MG TABLET PO (08:15)
[2022-02-09] MEDS: Benztropine Mesylate 0.5 MG TABLET PO (08:15)
[2022-02-09 16:52] VITALS: RESP 16
--- NOTE | 2022-02-09 17:43 | HO.PSYCHPN ---
Subjective Subjective Date of Service: 02/09/22 Reason For Visit: Schizoaffective disorder-Bipolar type Subjective Notes: Section 7 Healthcare Proxy: No Guardianship: Yes Medical Problems Affecting Mental Status: No Interim History: Caustic, isolative, avoidant. Verbally abusive when approached. Discussed in team. Team is allowing pt space and encouraging her to approach us when she feels appropriate. This appears effective in neutralizing angry responses and assisting her in comfort. Medication Compliance: Intermittent Side effects from medications: No Attending Groups: Intermittent Review of Systems Acute medical concerns: No Medical Review of Systems: unchanged Review of Systems Reports behavioral changes Psychiatric: Reports behavioral changes, Reports auditory hallucinations, Reports hopelessness, Reports irritability, Reports mood swings, Reports paranoia and Reports hallucinations Mental Status Exam Mental Status Exam Patient Appearance: Disheveled Patient Orientation: Person and Place Level of Consciousness: Alert Patient Behavior: Guarded, Suspicious and Poor Eye Contact Mood Description: Suspicious, Withdrawn and Hostile Affect Description: Suspicious, Withdrawn and Hostile Patient Cognition Impaired: Yes Ability to Follow Directions: Fair Speech Pattern: Spontaneous Speech and Includes Profanity Memory Description: Remote Impaired Hallucinations: Auditory Delusions: Paranoid Ideation Perceptual Disturbances: Derealization and Hallucinations Thought Process: Illogical and Distracted Thought Content: positive for Perseveration, positive for Thought Blocking and positive for Tangential Depressive Symptoms: Increased Irritability and Difficulty Concentrating Abnormal Motor Activity Signs and Symptoms: Agitation Judgement: Poor Diagnostics Vital Signs (24Hr): Vital Signs - 24 hr 02/09/22 06:00 02/09/22 16:52 Temperature 98 F Pulse Rate 96 Respiratory Rate 16 Pulse Oximetry 97 Oxygen Delivery Method Room Air BMI result Body Mass Index 0.0 Labs Results: 01/31/22 16:10 01/31/22 16:10 Medications Medications Current Medications Acetaminophen (Acetaminophen 325 Mg Tablet) 650 mg PO Q6H PRN PRN Reason: Headache/Pain Mild Scale (1-3) Al Hydroxide/Mg Hydroxide (Magnesium Hydrox/Alum Hydrox 30 Ml Oral.Susp) 30 ml PO Q6H PRN PRN Reason: Heartburn/Nausea Benztropine Mesylate (Benztropine Mesylate 0.5 Mg Tablet) 0.5 mg PO BID [facility] Last Admin: 02/09/22 08:15 Dose: 0.5 mg Diphenhydramine HCl (Diphenhydramine Hcl 12.5 Mg/5 Ml Liquid) 50 mg PO BEDTIME PRN PRN Reason: insomnia Last Admin: 02/04/22 22:23 Dose: 50 mg Hydroxyzine HCl (Hydroxyzine Hcl 25 Mg Tablet) 25 mg PO Q6H PRN PRN Reason: Anxiety Last Admin: 02/03/22 21:43 Dose: 25 mg Lorazepam (Lorazepam 1 Mg Tablet) 1 mg PO BEDTIME PRN PRN Reason: insomnia Lurasidone HCl (Lurasidone Hcl 40 Mg Tablet) 40 mg PO DAILY [facility] Last Admin: 02/09/22 08:15 Dose: 40 mg Magnesium Hydroxide (Milk Of Magnesia 30 Ml Oral.Susp) 30 ml PO DAILY PRN PRN Reason: Constipation Olanzapine (Olanzapine 5 Mg Tablet) 5 mg PO BID [facility] Last Admin: 02/09/22 08:15 Dose: 5 mg Olanzapine (Olanzapine Odt 10 Mg Tab.Rapdis) 10 mg TRANSLINGU Q8H PRN PRN Reason: psychotic agitation Olanzapine (Olanzapine 10 Mg Vial) 10 mg IM DAILY PRN PRN Reason: if pt refuses Latuda perRogers Trazodone HCl (Trazodone Hcl 50 Mg Tablet) 50 mg PO BEDTIME PRN PRN Reason: Insomnia Allergies Allergies Allergy/AdvReac Type Severity Reaction Status Date / Time haloperidol [From Haldol] AdvReac Mild AGITATION Verified 01/31/22 16:01 From Inderal Allergy Intermediate IRREGULAR Uncoded 03/21/20 16:26 HEARTBEAT Haldol Allergy Unknown Agitated Uncoded 01/31/22 16:01 Propanolol Allergy Unknown Unknown Uncoded 01/31/22 16:01 Assessment & Plan Assessment & Plan (1) Schizoaffective disorder: Qualifiers: Schizoaffective disorder type: unspecified Qualified Code(s): F25.9 - Schizoaffective disorder, unspecified Status: Acute Code(s): F25.9 - Schizoaffective disorder, unspecified Assessment and Plan: 61 yo female, history of schizoaffective disorder, bipolar type. Pt found incoherent in [employer] with confusion, lability of mood, delusional content. Assisted to hospital with police. Today, labile, angry and significantly abusive on the unit with agitation, pacing, swearing, threatening, disrobing and confusion. Bharat's guardianship in place. Section 12B in place to 02/05. Plan: Pt has refused all diagnostics. Continue current regime, which follows Bharat's order. Pt asks for sleep medication, declines Trazodone. Ativan 1 mg HS prn insomnia Probable section 7/ Collateral contacts. 02/04/22 Bharat's guardianship clarified. Latuda 40 mg daily. If pt refuses Olanzapine 10 mg IM Will file Section VII on 02/05. Attempt alliance building-currently pt is violent, psychotic, labile 02/06/22 Support pt in the milieu Educate regarding behaviors which place her at risk in community Section 7, court 02/12/22. 02/07/22: No med changes, pt declines to engage 02/09/22: Follow Bharat's plan of care. Court 02/26/22. I spent minutes with the patient and/or on the patient floor today, greater than?50% of which was spent counseling/coordinating care. Informed Consent: does not understand Reason for contiued inpatient stay Substantial Risk for: harm to self, harm to others, inability to function and rapid decompensation
[2022-02-10 06:00] VITALS: BP 142/84; PULSE 120; RESP 16; TEMP 36.6; O2SAT 95
[2022-02-10] MEDS: Lurasidone HCl 40 MG TABLET PO (08:39)
[2022-02-10] MEDS: Benztropine Mesylate 0.5 MG TABLET PO ×2 (08:39→19:40)
[2022-02-10] MEDS: OLANZapine 5 MG TABLET PO ×2 (08:39→19:40)
--- NOTE | 2022-02-10 15:52 | P.PNPSI_ITS ---
Subjective Subjective Date of Service: 02/10/22 Reason For Visit: Schizoaffective disorder-Bipolar type Subjective Notes: Section 7 Healthcare Proxy: No Guardianship: Yes Medical Problems Affecting Mental Status: No Interim History: Quiet, more visable, increased time in milieu, yet on the periphery. Nods when spoken to. No verbal abuse today with tw. When asks how are you, she sticks her tongue out, smiles, and continues along her way. Court date will be 02/26/22. Pt with work with [employer]ondra Shepherd. When informed, she shrugs her shoulders. Medication Compliance: Intermittent Side effects from medications: No Attending Groups: Intermittent Review of Systems Acute medical concerns: No Medical Review of Systems: unchanged Review of Systems Reports behavioral changes Psychiatric: Reports behavioral changes, Reports auditory hallucinations, Reports hopelessness, Reports irritability, Reports mood swings, Reports paranoia and Reports hallucinations Mental Status Exam Mental Status Exam Patient Appearance: Disheveled Patient Orientation: Person and Place Level of Consciousness: Alert Patient Behavior: Guarded, Suspicious and Poor Eye Contact Mood Description: Suspicious, Withdrawn and Hostile Affect Description: Suspicious, Withdrawn and Hostile Patient Cognition Impaired: Yes Ability to Follow Directions: Fair Speech Pattern: Spontaneous Speech and Includes Profanity Memory Description: Remote Impaired Hallucinations: Auditory Delusions: Paranoid Ideation Perceptual Disturbances: Derealization and Hallucinations Thought Process: Illogical and Distracted Thought Content: positive for Perseveration, positive for Thought Blocking and positive for Tangential Depressive Symptoms: Increased Irritability and Difficulty Concentrating Abnormal Motor Activity Signs and Symptoms: Agitation Judgement: Poor Diagnostics Vital Signs (24Hr): Vital Signs - 24 hr 02/09/22 16:52 02/10/22 06:00 Temperature 97.8 F Pulse Rate 120 H Respiratory Rate 16 16 Blood Pressure 142/84 H Pulse Oximetry 95 Oxygen Delivery Method Room Air BMI result Body Mass Index 0.0 Labs Results: 01/31/22 16:10 01/31/22 16:10 Medications Medications Current Medications Acetaminophen (Acetaminophen 325 Mg Tablet) 650 mg PO Q6H PRN PRN Reason: Headache/Pain Mild Scale (1-3) Al Hydroxide/Mg Hydroxide (Magnesium Hydrox/Alum Hydrox 30 Ml Oral.Susp) 30 ml PO Q6H PRN PRN Reason: Heartburn/Nausea Benztropine Mesylate (Benztropine Mesylate 0.5 Mg Tablet) 0.5 mg PO BID [facility] Last Admin: 02/10/22 08:39 Dose: 0.5 mg Diphenhydramine HCl (Diphenhydramine Hcl 12.5 Mg/5 Ml Liquid) 50 mg PO BEDTIME PRN PRN Reason: insomnia Last Admin: 02/04/22 22:23 Dose: 50 mg Hydroxyzine HCl (Hydroxyzine Hcl 25 Mg Tablet) 25 mg PO Q6H PRN PRN Reason: Anxiety Last Admin: 02/03/22 21:43 Dose: 25 mg Lorazepam (Lorazepam 1 Mg Tablet) 1 mg PO BEDTIME PRN PRN Reason: insomnia Lurasidone HCl (Lurasidone Hcl 40 Mg Tablet) 40 mg PO DAILY [facility] Last Admin: 02/10/22 08:39 Dose: 40 mg Magnesium Hydroxide (Milk Of Magnesia 30 Ml Oral.Susp) 30 ml PO DAILY PRN PRN Reason: Constipation Olanzapine (Olanzapine 5 Mg Tablet) 5 mg PO BID [facility] Last Admin: 02/10/22 08:39 Dose: 5 mg Olanzapine (Olanzapine Odt 10 Mg Tab.Rapdis) 10 mg TRANSLINGU Q8H PRN PRN Reason: psychotic agitation Olanzapine (Olanzapine 10 Mg Vial) 10 mg IM DAILY PRN PRN Reason: if pt refuses Latuda perRogers Trazodone HCl (Trazodone Hcl 50 Mg Tablet) 50 mg PO BEDTIME PRN PRN Reason: Insomnia Allergies Allergies Allergy/AdvReac Type Severity Reaction Status Date / Time haloperidol [From Haldol] AdvReac Mild AGITATION Verified 01/31/22 16:01 From Inderal Allergy Intermediate IRREGULAR Uncoded 03/21/20 16:26 HEARTBEAT Haldol Allergy Unknown Agitated Uncoded 01/31/22 16:01 Propanolol Allergy Unknown Unknown Uncoded 01/31/22 16:01 Assessment & Plan Assessment & Plan (1) Schizoaffective disorder: Qualifiers: Schizoaffective disorder type: unspecified Qualified Code(s): F25.9 - Schizoaffective disorder, unspecified Status: Acute Code(s): F25.9 - Schizoaffective disorder, unspecified Assessment and Plan: 61 yo female, history of schizoaffective disorder, bipolar type. Pt found incoherent in [facility] with confusion, lability of mood, delusional content. Assisted to hospital with police. Today, labile, angry and significantly abusive on the unit with agitation, pacing, swearing, threatening, disrobing and confusion. Bharat's guardianship in place. Section 12B in place to 02/05. Plan: Pt has refused all diagnostics. Continue current regime, which follows Bharat's order. Pt asks for sleep medication, declines Trazodone. Ativan 1 mg HS prn insomnia Probable section / Collateral contacts. 02/04/22 Bharat's guardianship clarified. Latuda 40 mg daily. If pt refuses Olanzapine 10 mg IM Will file Section VII on 02/05. Attempt alliance building-currently pt is violent, psychotic, labile 02/06/22 Support pt in the milieu Educate regarding behaviors which place her at risk in community Section 7, court 02/12/22. 02/07/22: No med changes, pt declines to engage 02/10/22: Continue Bharat's plan of care Continue to attempt alliance building I spent minutes with the patient and/or on the patient floor today, greater than?50% of which was spent counseling/coordinating care. Informed Consent: does not understand Reason for contiued inpatient stay Substantial Risk for: harm to self, inability to function, rapid decompensation and med/psych decompensation
[2022-02-11 08:45] VITALS: BP 128/79; PULSE 76; RESP 17; TEMP 36.6; O2SAT 96
[2022-02-11] MEDS: Lurasidone HCl 40 MG TABLET PO (09:24)
[2022-02-11] MEDS: OLANZapine 5 MG TABLET PO ×2 (11:18→23:18)
[2022-02-11] MEDS: Benztropine Mesylate 0.5 MG TABLET PO ×2 (11:18→23:18)
[2022-02-11 16:30] VITALS: BP 138/77; PULSE 123; TEMP 37
--- NOTE | 2022-02-11 17:19 | HO.PSYCHPN ---
Subjective Subjective Date of Service: 02/11/22 Reason For Visit: Schizoaffective disorder-Bipolar type Subjective Notes: Section 7 Healthcare Proxy: No Guardianship: Yes Medical Problems Affecting Mental Status: No Interim History: Pt in the common area this afternoon. Responds when tw says hello- hi . Denies any current questions or concerns, eye contact maintained throughout this brief interaction. Presents calmer, with more grounded approach to milieu. Watching TV, appears to be following the program, responding appropriately to program content. Medication Compliance: Intermittent Side effects from medications: No Attending Groups: Intermittent Review of Systems Acute medical concerns: No Medical Review of Systems: unchanged Review of Systems Reports behavioral changes Psychiatric: Reports behavioral changes, Reports auditory hallucinations, Reports hopelessness, Reports irritability, Reports mood swings, Reports paranoia and Reports hallucinations Mental Status Exam Mental Status Exam Patient Appearance: Disheveled Patient Orientation: Person and Place Level of Consciousness: Alert Patient Behavior: Guarded, Suspicious and Poor Eye Contact Mood Description: Suspicious, Withdrawn and Hostile Affect Description: Suspicious, Withdrawn and Hostile Patient Cognition Impaired: Yes Ability to Follow Directions: Fair Speech Pattern: Spontaneous Speech and Includes Profanity Memory Description: Remote Impaired Hallucinations: Auditory Delusions: Paranoid Ideation Perceptual Disturbances: Derealization and Hallucinations Thought Process: Illogical and Distracted Thought Content: positive for Perseveration, positive for Thought Blocking and positive for Tangential Depressive Symptoms: Increased Irritability and Difficulty Concentrating Abnormal Motor Activity Signs and Symptoms: Agitation Judgement: Poor Diagnostics Vital Signs (24Hr): Vital Signs - 24 hr 02/11/22 08:45 Temperature 97.8 F Pulse Rate 76 Respiratory Rate 17 Blood Pressure 128/79 Pulse Oximetry 96 Oxygen Delivery Method Room Air BMI result Body Mass Index 0.0 Labs Results: 01/31/22 16:10 01/31/22 16:10 Medications Medications Current Medications Acetaminophen (Acetaminophen 325 Mg Tablet) 650 mg PO Q6H PRN PRN Reason: Headache/Pain Mild Scale (1-3) Al Hydroxide/Mg Hydroxide (Magnesium Hydrox/Alum Hydrox 30 Ml Oral.Susp) 30 ml PO Q6H PRN PRN Reason: Heartburn/Nausea Benztropine Mesylate (Benztropine Mesylate 0.5 Mg Tablet) 0.5 mg PO BID [facility] Last Admin: 02/11/22 11:18 Dose: 0.5 mg Diphenhydramine HCl (Diphenhydramine Hcl 12.5 Mg/5 Ml Liquid) 50 mg PO BEDTIME PRN PRN Reason: insomnia Last Admin: 02/04/22 22:23 Dose: 50 mg Hydroxyzine HCl (Hydroxyzine Hcl 25 Mg Tablet) 25 mg PO Q6H PRN PRN Reason: Anxiety Last Admin: 02/03/22 21:43 Dose: 25 mg Lorazepam (Lorazepam 1 Mg Tablet) 1 mg PO BEDTIME PRN PRN Reason: insomnia Lurasidone HCl (Lurasidone Hcl 40 Mg Tablet) 40 mg PO DAILY [facility] Last Admin: 02/11/22 09:24 Dose: 40 mg Magnesium Hydroxide (Milk Of Magnesia 30 Ml Oral.Susp) 30 ml PO DAILY PRN PRN Reason: Constipation Olanzapine (Olanzapine 5 Mg Tablet) 5 mg PO BID [facility] Last Admin: 02/11/22 11:18 Dose: 5 mg Olanzapine (Olanzapine Odt 10 Mg Tab.Rapdis) 10 mg TRANSLINGU Q8H PRN PRN Reason: psychotic agitation Olanzapine (Olanzapine 10 Mg Vial) 10 mg IM DAILY PRN PRN Reason: if pt refuses Latuda perRogers Olanzapine (Olanzapine 10 Mg Vial) 5 mg IM BID PRN PRN Reason: if pt refuses po zyprexa-bharat Trazodone HCl (Trazodone Hcl 50 Mg Tablet) 50 mg PO BEDTIME PRN PRN Reason: Insomnia Allergies Allergies Allergy/AdvReac Type Severity Reaction Status Date / Time haloperidol [From Haldol] AdvReac Mild AGITATION Verified 01/31/22 16:01 From Inderal Allergy Intermediate IRREGULAR Uncoded 03/21/20 16:26 HEARTBEAT Haldol Allergy Unknown Agitated Uncoded 01/31/22 16:01 Propanolol Allergy Unknown Unknown Uncoded 01/31/22 16:01 Assessment & Plan Assessment & Plan (1) Schizoaffective disorder: Qualifiers: Schizoaffective disorder type: unspecified Qualified Code(s): F25.9 - Schizoaffective disorder, unspecified Status: Acute Code(s): F25.9 - Schizoaffective disorder, unspecified Assessment and Plan: 61 yo female, history of schizoaffective disorder, bipolar type. [facility] confusion, lability of mood, delusional content. Assisted to hospital with police. Today, labile, angry and significantly abusive on the unit with agitation, pacing, swearing, threatening, disrobing and confusion. Bharat's guardianship in place. Section 12B in place to 02/05. Plan: Pt has refused all diagnostics. Continue current regime, which follows Bharat's order. Pt asks for sleep medication, declines Trazodone. Ativan 1 mg HS prn insomnia Probable section / Collateral contacts. 02/04/22 Bharat's guardianship clarified. Latuda 40 mg daily. If pt refuses Olanzapine 10 mg IM Will file Section VII on 02/05. Attempt alliance building-currently pt is violent, psychotic, labile 02/06/22 Support pt in the milieu Educate regarding behaviors which place her at risk in community Section 7, court 02/12/22. 02/07/22: No med changes, pt declines to engage 02/11/22: [place] building attempts I spent minutes with the patient and/or on the patient floor today, greater than?50% of which was spent counseling/coordinating care. Informed Consent: does not understand Reason for contiued inpatient stay Substantial Risk for: harm to self, harm to others, inability to function, rapid decompensation and med/psych decompensation
[2022-02-12] MEDS: Benztropine Mesylate 0.5 MG TABLET PO ×2 (08:21→20:16)
[2022-02-12] MEDS: Lurasidone HCl 40 MG TABLET PO (08:21)
[2022-02-12] MEDS: OLANZapine 5 MG TABLET PO ×2 (08:21→20:16)
--- NOTE | 2022-02-12 15:45 | HO.PSYCHPN ---
Subjective Subjective Date of Service: 02/12/22 Reason For Visit: Schizoaffective disorder-Bipolar type Subjective Notes: Section 7 Healthcare Proxy: No Guardianship: No Medical Problems Affecting Mental Status: No Interim History: Visable, appears more observant in milieu. Clear in requests. Denies questions, not wanting to meet or discuss her treatment plan of care. Some time spent in common area, most of her time spent in room. No lability or inappropriate interactions noted. Team reports she is now approaching them when medications are due. Court scheduled for 02/26/22. Medication Compliance: Yes Side effects from medications: No Attending Groups: Intermittent Review of Systems Acute medical concerns: No Medical Review of Systems: unchanged Review of Systems Reports behavioral changes Psychiatric: Reports behavioral changes, Reports auditory hallucinations, Reports anhedonia, Reports mood swings and Reports paranoia Mental Status Exam Mental Status Exam Patient Appearance: Disheveled Patient Orientation: Person and Place Level of Consciousness: Alert Patient Behavior: Guarded, Suspicious, Avoidant, Fatigued and Isolative Mood Description: Suspicious and Withdrawn Affect Description: Suspicious and Withdrawn Patient Cognition Impaired: Yes Ability to Follow Directions: Fair Speech Pattern: Clear, Impoverished, Spontaneous Speech and Soft-Spoken Memory Description: Remote Impaired Hallucinations: Auditory Delusions: Paranoid Ideation and Present Thought Process: Evasive Thought Content: positive for Evasive Judgement: Poor Diagnostics Vital Signs (24Hr): Vital Signs - 24 hr 02/11/22 16:30 Temperature 98.6 F Pulse Rate 123 H Blood Pressure 138/77 BMI result Body Mass Index 0.0 Labs Results: 01/31/22 16:10 01/31/22 16:10 Medications Medications Current Medications Acetaminophen (Acetaminophen 325 Mg Tablet) 650 mg PO Q6H PRN PRN Reason: Headache/Pain Mild Scale (1-3) Al Hydroxide/Mg Hydroxide (Magnesium Hydrox/Alum Hydrox 30 Ml Oral.Susp) 30 ml PO Q6H PRN PRN Reason: Heartburn/Nausea Benztropine Mesylate (Benztropine Mesylate 0.5 Mg Tablet) 0.5 mg PO BID [facility] Last Admin: 02/12/22 08:21 Dose: 0.5 mg Diphenhydramine HCl (Diphenhydramine Hcl 12.5 Mg/5 Ml Liquid) 50 mg PO BEDTIME PRN PRN Reason: insomnia Last Admin: 02/04/22 22:23 Dose: 50 mg Hydroxyzine HCl (Hydroxyzine Hcl 25 Mg Tablet) 25 mg PO Q6H PRN PRN Reason: Anxiety Last Admin: 02/03/22 21:43 Dose: 25 mg Lorazepam (Lorazepam 1 Mg Tablet) 1 mg PO BEDTIME PRN PRN Reason: insomnia Lurasidone HCl (Lurasidone Hcl 40 Mg Tablet) 40 mg PO DAILY [facility] Last Admin: 02/12/22 08:21 Dose: 40 mg Magnesium Hydroxide (Milk Of Magnesia 30 Ml Oral.Susp) 30 ml PO DAILY PRN PRN Reason: Constipation Olanzapine (Olanzapine 5 Mg Tablet) 5 mg PO BID [facility] Last Admin: 02/12/22 08:21 Dose: 5 mg Olanzapine (Olanzapine Odt 10 Mg Tab.Rapdis) 10 mg TRANSLINGU Q8H PRN PRN Reason: psychotic agitation Olanzapine (Olanzapine 10 Mg Vial) 10 mg IM DAILY PRN PRN Reason: if pt refuses Latuda perRogers Olanzapine (Olanzapine 10 Mg Vial) 5 mg IM BID PRN PRN Reason: if pt refuses po zyprexa-bharat Trazodone HCl (Trazodone Hcl 50 Mg Tablet) 50 mg PO BEDTIME PRN PRN Reason: Insomnia Allergies Allergies Allergy/AdvReac Type Severity Reaction Status Date / Time haloperidol [From Haldol] AdvReac Mild AGITATION Verified 01/31/22 16:01 From Inderal Allergy Intermediate IRREGULAR Uncoded 03/21/20 16:26 HEARTBEAT Haldol Allergy Unknown Agitated Uncoded 01/31/22 16:01 Propanolol Allergy Unknown Unknown Uncoded 01/31/22 16:01 Assessment & Plan Assessment & Plan (1) Schizoaffective disorder: Qualifiers: Schizoaffective disorder type: unspecified Qualified Code(s): F25.9 - Schizoaffective disorder, unspecified Status: Acute Code(s): F25.9 - Schizoaffective disorder, unspecified Assessment and Plan: 61 yo female, history of schizoaffective disorder, bipolar type. Pt found incoherent in [employer] with confusion, lability of mood, delusional content. Assisted to hospital with police. Today, labile, angry and significantly abusive on the unit with agitation, pacing, swearing, threatening, disrobing and confusion. Bharat's guardianship in place. Section 12B in place to 02/05. Plan: Pt has refused all diagnostics. Continue current regime, which follows Bharat's order. Pt asks for sleep medication, declines Trazodone. Ativan 1 mg HS prn insomnia Probable section 7/8 Collateral contacts. 02/04/22 Bharat's guardianship clarified. Latuda 40 mg daily. If pt refuses Olanzapine 10 mg IM Will file Section VII on 02/05. Attempt alliance building-currently pt is violent, psychotic, labile 02/06/22 Support pt in the milieu Educate regarding behaviors which place her at risk in community Section 7, court 02/12/22. 02/07/22: No med changes, pt declines to engage 02/11/22: [place] building attempts 02/12/22: Continue current regime. I spent minutes with the patient and/or on the patient floor today, greater than?50% of which was spent counseling/coordinating care. Informed Consent: does not understand Reason for contiued inpatient stay Substantial Risk for: harm to self, harm to others, inability to function and rapid decompensation
[2022-02-12 18:00] VITALS: BP 119/76; PULSE 101; RESP 16; TEMP 36.5; O2SAT 99
[2022-02-13] MEDS: OLANZapine 5 MG TABLET PO ×2 (08:00→19:39)
[2022-02-13] MEDS: Benztropine Mesylate 0.5 MG TABLET PO ×2 (08:00→19:39)
[2022-02-13] MEDS: Lurasidone HCl 40 MG TABLET PO (08:00)
[2022-02-13 18:00] VITALS: BP 120/78; PULSE 95; RESP 16; TEMP 36.8; O2SAT 98
--- NOTE | 2022-02-13 18:42 | HO.PSYCHPN ---
Subjective Subjective Date of Service: 02/13/22 Reason For Visit: Schizoaffective disorder-Bipolar type Subjective Notes: Section 7 Healthcare Proxy: No Guardianship: No Medical Problems Affecting Mental Status: No Interim History: Calm, appears pre-occupied, decrease in lability and anger. Visable at times in milieu. No questions or concerns today. Isolative, not willing to engage, but responds to questions. Medication Compliance: Yes Side effects from medications: No Attending Groups: No Review of Systems Acute medical concerns: No Medical Review of Systems: unchanged Review of Systems Reports behavioral changes Psychiatric: Reports behavioral changes, Reports auditory hallucinations, Reports anhedonia, Reports mood swings and Reports paranoia Mental Status Exam Mental Status Exam Patient Appearance: Disheveled Patient Orientation: Person and Place Level of Consciousness: Alert Patient Behavior: Guarded, Suspicious, Avoidant, Fatigued and Isolative Mood Description: Suspicious and Withdrawn Affect Description: Suspicious and Withdrawn Patient Cognition Impaired: Yes Ability to Follow Directions: Fair Speech Pattern: Clear, Impoverished, Spontaneous Speech and Soft-Spoken Memory Description: Remote Impaired Hallucinations: Auditory Delusions: Paranoid Ideation and Present Thought Process: Evasive Thought Content: positive for Evasive Judgement: Poor Diagnostics Vital Signs (24Hr): Vital Signs - 24 hr 02/13/22 18:00 Temperature 98.2 F Pulse Rate 95 Respiratory Rate 16 Blood Pressure 120/78 Pulse Oximetry 98 Oxygen Delivery Method Room Air BMI result Body Mass Index 0.0 Labs Results: 01/31/22 16:10 01/31/22 16:10 Medications Medications Current Medications Acetaminophen (Acetaminophen 325 Mg Tablet) 650 mg PO Q6H PRN PRN Reason: Headache/Pain Mild Scale (1-3) Al Hydroxide/Mg Hydroxide (Magnesium Hydrox/Alum Hydrox 30 Ml Oral.Susp) 30 ml PO Q6H PRN PRN Reason: Heartburn/Nausea Benztropine Mesylate (Benztropine Mesylate 0.5 Mg Tablet) 0.5 mg PO BID [facility] Last Admin: 02/13/22 08:00 Dose: 0.5 mg Diphenhydramine HCl (Diphenhydramine Hcl 12.5 Mg/5 Ml Liquid) 50 mg PO BEDTIME PRN PRN Reason: insomnia Last Admin: 02/04/22 22:23 Dose: 50 mg Hydroxyzine HCl (Hydroxyzine Hcl 25 Mg Tablet) 25 mg PO Q6H PRN PRN Reason: Anxiety Last Admin: 02/03/22 21:43 Dose: 25 mg Lorazepam (Lorazepam 1 Mg Tablet) 1 mg PO BEDTIME PRN PRN Reason: insomnia Lurasidone HCl (Lurasidone Hcl 40 Mg Tablet) 40 mg PO DAILY [facility] Last Admin: 02/13/22 08:00 Dose: 40 mg Magnesium Hydroxide (Milk Of Magnesia 30 Ml Oral.Susp) 30 ml PO DAILY PRN PRN Reason: Constipation Olanzapine (Olanzapine 5 Mg Tablet) 5 mg PO BID [facility] Last Admin: 02/13/22 08:00 Dose: 5 mg Olanzapine (Olanzapine Odt 10 Mg Tab.Rapdis) 10 mg TRANSLINGU Q8H PRN PRN Reason: psychotic agitation Olanzapine (Olanzapine 10 Mg Vial) 10 mg IM DAILY PRN PRN Reason: if pt refuses Latuda perRogers Olanzapine (Olanzapine 10 Mg Vial) 5 mg IM BID PRN PRN Reason: if pt refuses po zyprexa-bharat Trazodone HCl (Trazodone Hcl 50 Mg Tablet) 50 mg PO BEDTIME PRN PRN Reason: Insomnia Allergies Allergies Allergy/AdvReac Type Severity Reaction Status Date / Time haloperidol [From Haldol] AdvReac Mild AGITATION Verified 01/31/22 16:01 From Inderal Allergy Intermediate IRREGULAR Uncoded 03/21/20 16:26 HEARTBEAT Haldol Allergy Unknown Agitated Uncoded 01/31/22 16:01 Propanolol Allergy Unknown Unknown Uncoded 01/31/22 16:01 Assessment & Plan Assessment & Plan (1) Schizoaffective disorder: Qualifiers: Schizoaffective disorder type: unspecified Qualified Code(s): F25.9 - Schizoaffective disorder, unspecified Status: Acute Code(s): F25.9 - Schizoaffective disorder, unspecified Assessment and Plan: 61 yo female, history of schizoaffective disorder, bipolar type. Pt found incoherent in [employer] with confusion, lability of mood, delusional content. Assisted to hospital with police. Today, labile, angry and significantly abusive on the unit with agitation, pacing, swearing, threatening, disrobing and confusion. Bharat's guardianship in place. Section 12B in place to 02/05. Plan: Pt has refused all diagnostics. Continue current regime, which follows Bharat's order. Pt asks for sleep medication, declines Trazodone. Ativan 1 mg HS prn insomnia Probable section 7/ Collateral contacts. 02/04/22 Bharat's guardianship clarified. Latuda 40 mg daily. If pt refuses Olanzapine 10 mg IM Will file Section VII on 02/05. Attempt alliance building-currently pt is violent, psychotic, labile 02/06/22 Support pt in the milieu Educate regarding behaviors which place her at risk in community Section 7, court 02/12/22. 02/07/22: No med changes, pt declines to engage 02/11/22: [place] building attempts 02/12/22: Continue current regime. 02/13/22: Court 02/26/22. Continue current regime. I spent minutes with the patient and/or on the patient floor today, greater than?50% of which was spent counseling/coordinating care. Informed Consent: does not understand Reason for contiued inpatient stay Substantial Risk for: med/psych decompensation
[2022-02-14] MEDS: OLANZapine 5 MG TABLET PO ×2 (08:00→19:49)
[2022-02-14] MEDS: Lurasidone HCl 40 MG TABLET PO (08:00)
[2022-02-14] MEDS: Benztropine Mesylate 0.5 MG TABLET PO ×2 (08:00→19:49)
--- NOTE | 2022-02-14 10:38 | P.PNPSI_ITS ---
Subjective Subjective Date of Service: 02/14/22 Reason For Visit: Schizoaffective disorder-Bipolar type Interim History: Patient doing crossword puzzle of some sort on approach. 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 She denies any request and has no complaints and although polite, is difficult to engage with any further. Patient is taking her medications. Mental Status Exam Mental Status Exam Patient Appearance: Disheveled Patient Orientation: Person and Place Level of Consciousness: Alert Patient Behavior: Guarded, Suspicious, Avoidant, Fatigued and Isolative Mood Description: Suspicious and Withdrawn Affect Description: Suspicious and Withdrawn Patient Cognition Impaired: Yes Ability to Follow Directions: Fair Speech Pattern: Clear, Impoverished, Spontaneous Speech and Soft-Spoken Memory Description: Remote Impaired Hallucinations: Auditory Delusions: Paranoid Ideation and Present Thought Process: Evasive Thought Content: positive for Evasive Judgement: Poor Diagnostics Vital Signs (24Hr): Vital Signs - 24 hr 02/13/22 18:00 Temperature 98.2 F Pulse Rate 95 Respiratory Rate 16 Blood Pressure 120/78 Pulse Oximetry 98 Oxygen Delivery Method Room Air BMI result Body Mass Index 0.0 Labs Results: 01/31/22 16:10 01/31/22 16:10 Medications Medications Current Medications Acetaminophen (Acetaminophen 325 Mg Tablet) 650 mg PO Q6H PRN PRN Reason: Headache/Pain Mild Scale (1-3) Al Hydroxide/Mg Hydroxide (Magnesium Hydrox/Alum Hydrox 30 Ml Oral.Susp) 30 ml PO Q6H PRN PRN Reason: Heartburn/Nausea Benztropine Mesylate (Benztropine Mesylate 0.5 Mg Tablet) 0.5 mg PO BID [facility] Last Admin: 02/14/22 08:00 Dose: 0.5 mg Diphenhydramine HCl (Diphenhydramine Hcl 12.5 Mg/5 Ml Liquid) 50 mg PO BEDTIME PRN PRN Reason: insomnia Last Admin: 02/04/22 22:23 Dose: 50 mg Hydroxyzine HCl (Hydroxyzine Hcl 25 Mg Tablet) 25 mg PO Q6H PRN PRN Reason: Anxiety Last Admin: 02/03/22 21:43 Dose: 25 mg Lorazepam (Lorazepam 1 Mg Tablet) 1 mg PO BEDTIME PRN PRN Reason: insomnia Lurasidone HCl (Lurasidone Hcl 40 Mg Tablet) 40 mg PO DAILY [facility] Last Admin: 02/14/22 08:00 Dose: 40 mg Magnesium Hydroxide (Milk Of Magnesia 30 Ml Oral.Susp) 30 ml PO DAILY PRN PRN Reason: Constipation Olanzapine (Olanzapine 5 Mg Tablet) 5 mg PO BID [facility] Last Admin: 02/14/22 08:00 Dose: 5 mg Olanzapine (Olanzapine Odt 10 Mg Tab.Rapdis) 10 mg TRANSLINGU Q8H PRN PRN Reason: psychotic agitation Olanzapine (Olanzapine 10 Mg Vial) 10 mg IM DAILY PRN PRN Reason: if pt refuses Latuda perRogers Olanzapine (Olanzapine 10 Mg Vial) 5 mg IM BID PRN PRN Reason: if pt refuses po zyprexa-bharat Trazodone HCl (Trazodone Hcl 50 Mg Tablet) 50 mg PO BEDTIME PRN PRN Reason: Insomnia Allergies Allergies Allergy/AdvReac Type Severity Reaction Status Date / Time haloperidol [From Haldol] AdvReac Mild AGITATION Verified 01/31/22 16:01 From Inderal Allergy Intermediate IRREGULAR Uncoded 03/21/20 16:26 HEARTBEAT Haldol Allergy Unknown Agitated Uncoded 01/31/22 16:01 Propanolol Allergy Unknown Unknown Uncoded 01/31/22 16:01 Assessment & Plan Assessment & Plan (1) Schizoaffective disorder: Qualifiers: Schizoaffective disorder type: unspecified Qualified Code(s): F25.9 - Schizoaffective disorder, unspecified Status: Acute Code(s): F25.9 - Schizoaffective disorder, unspecified Assessment and Plan: 61 yo female, history of schizoaffective disorder, bipolar type. Pt found incoherent in [facility] with confusion, lability of mood, delusional content. Assisted to hospital with police. Today, labile, angry and significantly abusive on the unit with agitation, pacing, swearing, threatening, disrobing and confusion. Bharat's guardianship in place. Section 12B in place to 02/05. Plan: Pt has refused all diagnostics. Continue current regime, which follows Bharat's order. Pt asks for sleep medication, declines Trazodone. Ativan 1 mg HS prn insomnia Probable section 01/09 Collateral contacts. 02/04/22 Bharat's guardianship clarified. Latuda 40 mg daily. If pt refuses Olanzapine 10 mg IM Will file Section VII on 02/05. Attempt alliance building-currently pt is violent, psychotic, labile 02/06/22 Support pt in the milieu Educate regarding behaviors which place her at risk in community Section 7, court 02/12/22. 02/07/22: No med changes, pt declines to engage 02/11/22: [place] building attempts 02/12/22: Continue current regime. 02/13/22: Court 02/26/22. Continue current regime. 02/14 no changes to current regimen I spent minutes with the patient and/or on the patient floor today, greater than?50% of which was spent counseling/coordinating care. Reason for contiued inpatient stay Substantial Risk for: inability to function
[2022-02-15] MEDS: Benztropine Mesylate 0.5 MG TABLET PO ×2 (09:10→19:33)
[2022-02-15] MEDS: OLANZapine 5 MG TABLET PO ×2 (09:10→19:33)
[2022-02-15] MEDS: Lurasidone HCl 40 MG TABLET PO (09:10)
--- NOTE | 2022-02-15 14:35 | HO.PSYCHPN ---
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 First she says she is doing well . And then she says actually not so good. [employer] Operator tries to inquire but she says I do not want to talk to you. taking meds Mental Status Exam Mental Status Exam Patient Appearance: Disheveled Patient Orientation: Person and Place Level of Consciousness: Alert Patient Behavior: Guarded, Suspicious, Avoidant, Fatigued, Isolative and Poor Eye Contact Mood Description: Suspicious and Withdrawn Affect Description: Suspicious and Withdrawn Patient Cognition Impaired: Yes Ability to Follow Directions: Fair Speech Pattern: Clear, Impoverished, Spontaneous Speech and Soft-Spoken Memory Description: Remote Impaired Hallucinations: Auditory Delusions: Paranoid Ideation and Present Thought Process: Evasive Thought Content: positive for Evasive Judgement: Poor Diagnostics Vital Signs (24Hr): BMI result Body Mass Index 0.0 Labs Results: 01/31/22 16:10 01/31/22 16:10 Medications Medications Current Medications Acetaminophen (Acetaminophen 325 Mg Tablet) 650 mg PO Q6H PRN PRN Reason: Headache/Pain Mild Scale (1-3) Al Hydroxide/Mg Hydroxide (Magnesium Hydrox/Alum Hydrox 30 Ml Oral.Susp) 30 ml PO Q6H PRN PRN Reason: Heartburn/Nausea Benztropine Mesylate (Benztropine Mesylate 0.5 Mg Tablet) 0.5 mg PO BID [facility] Last Admin: 02/15/22 09:10 Dose: 0.5 mg Diphenhydramine HCl (Diphenhydramine Hcl 12.5 Mg/5 Ml Liquid) 50 mg PO BEDTIME PRN PRN Reason: insomnia Last Admin: 02/04/22 22:23 Dose: 50 mg Hydroxyzine HCl (Hydroxyzine Hcl 25 Mg Tablet) 25 mg PO Q6H PRN PRN Reason: Anxiety Last Admin: 02/03/22 21:43 Dose: 25 mg Lorazepam (Lorazepam 1 Mg Tablet) 1 mg PO BEDTIME PRN PRN Reason: insomnia Lurasidone HCl (Lurasidone Hcl 40 Mg Tablet) 40 mg PO DAILY [facility] Last Admin: 02/15/22 09:10 Dose: 40 mg Magnesium Hydroxide (Milk Of Magnesia 30 Ml Oral.Susp) 30 ml PO DAILY PRN PRN Reason: Constipation Olanzapine (Olanzapine 5 Mg Tablet) 5 mg PO BID [facility] Last Admin: 02/15/22 09:10 Dose: 5 mg Olanzapine (Olanzapine Odt 10 Mg Tab.Rapdis) 10 mg TRANSLINGU Q8H PRN PRN Reason: psychotic agitation Olanzapine (Olanzapine 10 Mg Vial) 10 mg IM DAILY PRN PRN Reason: if pt refuses Latuda perRogers Olanzapine (Olanzapine 10 Mg Vial) 5 mg IM BID PRN PRN Reason: if pt refuses po zyprexa-bharat Trazodone HCl (Trazodone Hcl 50 Mg Tablet) 50 mg PO BEDTIME PRN PRN Reason: Insomnia Allergies Allergies Allergy/AdvReac Type Severity Reaction Status Date / Time haloperidol [From Haldol] AdvReac Mild AGITATION Verified 01/31/22 16:01 From Inderal Allergy Intermediate IRREGULAR Uncoded 03/21/20 16:26 HEARTBEAT Haldol Allergy Unknown Agitated Uncoded 01/31/22 16:01 Propanolol Allergy Unknown Unknown Uncoded 01/31/22 16:01 Assessment & Plan Assessment & Plan (1) Schizoaffective disorder: Qualifiers: Schizoaffective disorder type: unspecified Qualified Code(s): F25.9 - Schizoaffective disorder, unspecified Status: Acute Code(s): F25.9 - Schizoaffective disorder, unspecified Assessment and Plan: 61 yo female, history of schizoaffective disorder, bipolar type. Pt found incoherent in [facility] with confusion, lability of mood, delusional content. Assisted to hospital with police. Today, labile, angry and significantly abusive on the unit with agitation, pacing, swearing, threatening, disrobing and confusion. Bharat's guardianship in place. Section 12B in place to 02/05. Plan: Pt has refused all diagnostics. Continue current regime, which follows Bharat's order. Pt asks for sleep medication, declines Trazodone. Ativan 1 mg HS prn insomnia Probable section 7/ Collateral contacts. 02/04/22 Bharat's guardianship clarified. Latuda 40 mg daily. If pt refuses Olanzapine 10 mg IM Will file Section VII on 02/05. Attempt alliance building-currently pt is violent, psychotic, labile 02/06/22 Support pt in the milieu Educate regarding behaviors which place her at risk in community Section 7, court 02/12/22. 02/07/22: No med changes, pt declines to engage 02/11/22: [place] building attempts 02/12/22: Continue current regime. 02/13/22: Court 02/26/22. Continue current regime. 02/14 no changes to current regimen 02/15 no changes to current regimen I spent minutes with the patient and/or on the patient floor today, greater than?50% of which was spent counseling/coordinating care. Reason for contiued inpatient stay Substantial Risk for: inability to function
[2022-02-15 18:00] VITALS: BP 122/78; PULSE 97; RESP 16; TEMP 36.6; O2SAT 99
[2022-02-16] MEDS: Benztropine Mesylate 0.5 MG TABLET PO ×2 (08:43→21:28)
[2022-02-16] MEDS: Lurasidone HCl 40 MG TABLET PO (08:43)
[2022-02-16 08:46] VITALS: BP 139/81; PULSE 108; RESP 16; TEMP 36.8; O2SAT 97
[2022-02-16] MEDS: OLANZapine 5 MG TABLET PO ×2 (09:12→21:28)
--- NOTE | 2022-02-16 17:14 | HO.PSYCHPN ---
Subjective Subjective Date of Service: 02/16/22 Reason For Visit: Schizoaffective disorder-Bipolar type Subjective Notes: Section 7 Healthcare Proxy: No Guardianship: No Medical Problems Affecting Mental Status: No Interim History: Pt lying in bed when approached. Initially silent, then responds, Leave, I don't want to talk to you. visable at times in milieu, continues with periods of anger, caustic behavior, verbal aggression. Medication Compliance: Yes Side effects from medications: No Attending Groups: No Review of Systems Acute medical concerns: No Medical Review of Systems: unchanged Review of Systems Reports behavioral changes and Reports memory loss Psychiatric: Reports behavioral changes, Reports difficulty concentrating, Reports auditory hallucinations, Reports hopelessness, Reports irritability, Reports anhedonia, Reports memory loss, Reports mood swings and Reports paranoia Mental Status Exam Mental Status Exam Patient Appearance: Disheveled Patient Orientation: Person, Place, Time and Situation Level of Consciousness: Alert Patient Behavior: Guarded, Suspicious, Resistive to Care, Distractible, Isolative and Poor Eye Contact Mood Description: Apathetic, Suspicious, Withdrawn and Hostile Affect Description: Suspicious, Withdrawn and Hostile Patient Cognition Impaired: Yes Ability to Follow Directions: Fair Speech Pattern: Spontaneous Speech Memory Description: Intact Hallucinations: Auditory Delusions: Paranoid Ideation Perceptual Disturbances: Depersonalization and Derealization Thought Process: Distracted Thought Content: positive for [place] and positive for Thought Blocking Depressive Symptoms: Increased Irritability Judgement: Poor Diagnostics Vital Signs (24Hr): Vital Signs - 24 hr 02/15/22 18:00 02/16/22 08:46 Temperature 97.8 F 98.2 F Pulse Rate 97 108 H Respiratory Rate 16 16 Blood Pressure 122/78 139/81 Pulse Oximetry 99 97 Oxygen Delivery Method Room Air Room Air BMI result Body Mass Index 0.0 Labs Results: 01/31/22 16:10 01/31/22 16:10 Medications Medications Current Medications Acetaminophen (Acetaminophen 325 Mg Tablet) 650 mg PO Q6H PRN PRN Reason: Headache/Pain Mild Scale (1-3) Al Hydroxide/Mg Hydroxide (Magnesium Hydrox/Alum Hydrox 30 Ml Oral.Susp) 30 ml PO Q6H PRN PRN Reason: Heartburn/Nausea Benztropine Mesylate (Benztropine Mesylate 0.5 Mg Tablet) 0.5 mg PO BID [facility] Last Admin: 02/16/22 08:43 Dose: 0.5 mg Diphenhydramine HCl (Diphenhydramine Hcl 12.5 Mg/5 Ml Liquid) 50 mg PO BEDTIME PRN PRN Reason: insomnia Last Admin: 02/04/22 22:23 Dose: 50 mg Hydroxyzine HCl (Hydroxyzine Hcl 25 Mg Tablet) 25 mg PO Q6H PRN PRN Reason: Anxiety Last Admin: 02/03/22 21:43 Dose: 25 mg Lorazepam (Lorazepam 1 Mg Tablet) 1 mg PO BEDTIME PRN PRN Reason: insomnia Lurasidone HCl (Lurasidone Hcl 40 Mg Tablet) 40 mg PO DAILY [facility] Last Admin: 02/16/22 08:43 Dose: 40 mg Magnesium Hydroxide (Milk Of Magnesia 30 Ml Oral.Susp) 30 ml PO DAILY PRN PRN Reason: Constipation Olanzapine (Olanzapine 5 Mg Tablet) 5 mg PO BID [facility] Last Admin: 02/16/22 09:12 Dose: 5 mg Olanzapine (Olanzapine Odt 10 Mg Tab.Rapdis) 10 mg TRANSLINGU Q8H PRN PRN Reason: psychotic agitation Olanzapine (Olanzapine 10 Mg Vial) 10 mg IM DAILY PRN PRN Reason: if pt refuses Latuda perRogers Olanzapine (Olanzapine 10 Mg Vial) 5 mg IM BID PRN PRN Reason: if pt refuses po zyprexa-bharat Trazodone HCl (Trazodone Hcl 50 Mg Tablet) 50 mg PO BEDTIME PRN PRN Reason: Insomnia Allergies Allergies Allergy/AdvReac Type Severity Reaction Status Date / Time haloperidol [From Haldol] AdvReac Mild AGITATION Verified 01/31/22 16:01 From Inderal Allergy Intermediate IRREGULAR Uncoded 03/21/20 16:26 HEARTBEAT Haldol Allergy Unknown Agitated Uncoded 01/31/22 16:01 Propanolol Allergy Unknown Unknown Uncoded 01/31/22 16:01 Assessment & Plan Assessment & Plan (1) Schizoaffective disorder: Qualifiers: Schizoaffective disorder type: unspecified Qualified Code(s): F25.9 - Schizoaffective disorder, unspecified Status: Acute Code(s): F25.9 - Schizoaffective disorder, unspecified Assessment and Plan: 61 yo female, history of schizoaffective disorder, bipolar type. Pt found incoherent in [facility] with confusion, lability of mood, delusional content. Assisted to hospital with police. Today, labile, angry and significantly abusive on the unit with agitation, pacing, swearing, threatening, disrobing and confusion. Bharat's guardianship in place. Section 12B in place to 02/05. Plan: Pt has refused all diagnostics. Continue current regime, which follows Bharat's order. Pt asks for sleep medication, declines Trazodone. Ativan 1 mg HS prn insomnia Probable section 7/ Collateral contacts. 02/04/22 Bharat's guardianship clarified. Latuda 40 mg daily. If pt refuses Olanzapine 10 mg IM Will file Section VII on 02/05. Attempt alliance building-currently pt is violent, psychotic, labile 02/06/22 Support pt in the milieu Educate regarding behaviors which place her at risk in community Section 7, court 02/12/22. 02/07/22: No med changes, pt declines to engage 02/11/22: [place] building attempts 02/12/22: Continue current regime. 02/13/22: Court 02/26/22. Continue current regime. 02/14 no changes to current regimen 02/15 no changes to current regimen 02/16/[address] 02/26/22. I spent minutes with the patient and/or on the patient floor today, greater than?50% of which was spent counseling/coordinating care. Informed Consent: does not understand Reason for contiued inpatient stay Substantial Risk for: harm to self, harm to others, inability to function and rapid decompensation
[2022-02-17 08:50] VITALS: BP 109/60; PULSE 100; RESP 16; TEMP 36.9; O2SAT 94
[2022-02-17] MEDS: Benztropine Mesylate 0.5 MG TABLET PO ×2 (09:23→20:21)
[2022-02-17] MEDS: Lurasidone HCl 40 MG TABLET PO (09:23)
[2022-02-17] MEDS: OLANZapine 5 MG TABLET PO ×2 (09:23→20:21)
--- NOTE | 2022-02-17 10:20 | HO.PSYCHPN ---
Subjective Subjective Date of Service: 02/17/22 Reason For Visit: Schizoaffective disorder-Bipolar type Subjective Notes: Section 7 Healthcare Proxy: No Medical Problems Affecting Mental Status: No Interim History: case reviewed tx team chart reviewed pt seen isolated withdrawn denied phys sx refused to engage otherwise Medication Compliance: Yes Attending Groups: No Review of Systems Acute medical concerns: No Mental Status Exam Mental Status Exam Patient Appearance: Disheveled Level of Consciousness: Alert Patient Behavior: Guarded, Suspicious, Resistive to Care, Distractible, Isolative and Poor Eye Contact Mood Description: Apathetic, Suspicious, Withdrawn and Hostile Affect Description: Suspicious, Withdrawn and Hostile Patient Cognition Impaired: Yes Ability to Follow Directions: Fair Speech Pattern: Spontaneous Speech Memory Description: Intact Hallucinations: Auditory Perceptual Disturbances: Depersonalization and Derealization Thought Process: Distracted Thought Content: positive for [place] and positive for Thought Blocking Depressive Symptoms: Increased Irritability Judgement: Poor Diagnostics Vital Signs (24Hr): Vital Signs - 24 hr 02/17/22 08:50 Temperature 98.4 F Pulse Rate 100 Respiratory Rate 16 Blood Pressure 109/60 Pulse Oximetry 94 Oxygen Delivery Method Room Air BMI result Body Mass Index 0.0 Labs Results: 01/31/22 16:10 01/31/22 16:10 Medications Medications Current Medications Acetaminophen (Acetaminophen 325 Mg Tablet) 650 mg PO Q6H PRN PRN Reason: Headache/Pain Mild Scale (1-3) Al Hydroxide/Mg Hydroxide (Magnesium Hydrox/Alum Hydrox 30 Ml Oral.Susp) 30 ml PO Q6H PRN PRN Reason: Heartburn/Nausea Benztropine Mesylate (Benztropine Mesylate 0.5 Mg Tablet) 0.5 mg PO BID [facility] Last Admin: 02/17/22 09:23 Dose: 0.5 mg Diphenhydramine HCl (Diphenhydramine Hcl 12.5 Mg/5 Ml Liquid) 50 mg PO BEDTIME PRN PRN Reason: insomnia Last Admin: 02/04/22 22:23 Dose: 50 mg Hydroxyzine HCl (Hydroxyzine Hcl 25 Mg Tablet) 25 mg PO Q6H PRN PRN Reason: Anxiety Last Admin: 02/03/22 21:43 Dose: 25 mg Lorazepam (Lorazepam 1 Mg Tablet) 1 mg PO BEDTIME PRN PRN Reason: insomnia Lurasidone HCl (Lurasidone Hcl 40 Mg Tablet) 40 mg PO DAILY [facility] Last Admin: 02/17/22 09:23 Dose: 40 mg Magnesium Hydroxide (Milk Of Magnesia 30 Ml Oral.Susp) 30 ml PO DAILY PRN PRN Reason: Constipation Olanzapine (Olanzapine 5 Mg Tablet) 5 mg PO BID [facility] Last Admin: 02/17/22 09:23 Dose: 5 mg Olanzapine (Olanzapine Odt 10 Mg Tab.Rapdis) 10 mg TRANSLINGU Q8H PRN PRN Reason: psychotic agitation Olanzapine (Olanzapine 10 Mg Vial) 10 mg IM DAILY PRN PRN Reason: if pt refuses Latuda perRogers Olanzapine (Olanzapine 10 Mg Vial) 5 mg IM BID PRN PRN Reason: if pt refuses po zyprexa-bharat Trazodone HCl (Trazodone Hcl 50 Mg Tablet) 50 mg PO BEDTIME PRN PRN Reason: Insomnia Allergies Allergies Allergy/AdvReac Type Severity Reaction Status Date / Time haloperidol [From Haldol] AdvReac Mild AGITATION Verified 01/31/22 16:01 From Inderal Allergy Intermediate IRREGULAR Uncoded 03/21/20 16:26 HEARTBEAT Haldol Allergy Unknown Agitated Uncoded 01/31/22 16:01 Propanolol Allergy Unknown Unknown Uncoded 01/31/22 16:01 Assessment & Plan Assessment & Plan (1) Schizoaffective disorder: Qualifiers: Schizoaffective disorder type: unspecified Qualified Code(s): F25.9 - Schizoaffective disorder, unspecified Status: Acute Code(s): F25.9 - Schizoaffective disorder, unspecified Assessment and Plan: 61 yo female, history of schizoaffective disorder, bipolar type. Pt found incoherent in [facility] with confusion, lability of mood, delusional content. Assisted to hospital with police. Today, labile, angry and significantly abusive on the unit with agitation, pacing, swearing, threatening, disrobing and confusion. Bharat's guardianship in place. Section [address] in place to 02/05. Plan: Pt has refused all diagnostics. Continue current regime, which follows Bharat's order. Pt asks for sleep medication, declines Trazodone. Ativan 1 mg HS prn insomnia Probable section 7 Collateral contacts. 02/04/22 Bharat's guardianship clarified. Latuda 40 mg daily. If pt refuses Olanzapine 10 mg IM Will file Section VII on 02/05. Attempt alliance building-currently pt is violent, psychotic, labile 02/06/22 Support pt in the milieu Educate regarding behaviors which place her at risk in community Section 7, court 02/12/22. 02/07/22: No med changes, pt declines to engage 02/11/22: [place] building attempts 02/12/22: Continue current regime. 02/13/22: Court 02/26/22. Continue current regime. 02/14 no changes to current regimen 02/15 no changes to current regimen 02/16/[address] 02/26/22 02/17/22 Pt isolated cont tx plan remains withdrawn not engaged . Plan see above cont tx plan I spent minutes with the patient and/or on the patient floor today, greater than?50% of which was spent counseling/coordinating care. Reason for contiued inpatient stay Substantial Risk for: inability to function and rapid decompensation
[2022-02-17 18:00] VITALS: BP 128/79; PULSE 68; RESP 16; TEMP 36.5; O2SAT 98
[2022-02-18] MEDS: Benztropine Mesylate 0.5 MG TABLET PO ×2 (08:36→20:17)
[2022-02-18] MEDS: OLANZapine 5 MG TABLET PO ×2 (08:36→20:17)
[2022-02-18] MEDS: Lurasidone HCl 40 MG TABLET PO (08:36)
--- NOTE | 2022-02-18 16:02 | HO.PSYCHPN ---
Subjective Subjective Date of Service: 02/18/22 Reason For Visit: Schizoaffective disorder-Bipolar type Subjective Notes: Section 7 Healthcare Proxy: No Guardianship: No Medical Problems Affecting Mental Status: No Interim History: Isolative, not as visable in milieu, not willing to interact. Brief responses to questions, unwilling to discuss upcoming court date (told pt we would keep trying). Her level of social isolation and resistance keeping her stuck in an seclusive pattern. Using anger, verbal abuse to keep others away. Team continues to be respectful and responds when she reaches out and offers brief frequent connections which she does not take advantage of often. Medication Compliance: Yes Side effects from medications: No Attending Groups: No Review of Systems Acute medical concerns: No Medical Review of Systems: unchanged Review of Systems Reports behavioral changes Psychiatric: Reports behavioral changes, Reports auditory hallucinations, Reports irritability, Reports mood swings, Reports visual hallucinations and Reports hallucinations Mental Status Exam Mental Status Exam Patient Appearance: Disheveled Patient Orientation: Person and Place Level of Consciousness: Awake Patient Behavior: Guarded, Suspicious, Resistive to Care, Avoidant, Distractible and Poor Eye Contact Mood Description: Hostile Affect Description: Constricted Patient Cognition Impaired: Yes Ability to Follow Directions: Poor Speech Pattern: Spontaneous Speech and Soft-Spoken Memory Description: Remote Impaired and Episodic Impaired Hallucinations: Auditory Delusions: Paranoid Ideation Perceptual Disturbances: Depersonalization and Derealization Thought Content: positive for [place], positive for Perseveration, positive for Preoccupation, positive for Thought Blocking and positive for Evasive Depressive Symptoms: Increased Irritability Judgement: Poor Diagnostics Vital Signs (24Hr): Vital Signs - 24 hr 02/17/22 18:00 Temperature 97.7 F Pulse Rate 68 Respiratory Rate 16 Blood Pressure 128/79 Pulse Oximetry 98 Oxygen Delivery Method Room Air BMI result Body Mass Index 0.0 Labs Results: 01/31/22 16:10 01/31/22 16:10 Medications Medications Current Medications Acetaminophen (Acetaminophen 325 Mg Tablet) 650 mg PO Q6H PRN PRN Reason: Headache/Pain Mild Scale (1-3) Al Hydroxide/Mg Hydroxide (Magnesium Hydrox/Alum Hydrox 30 Ml Oral.Susp) 30 ml PO Q6H PRN PRN Reason: Heartburn/Nausea Benztropine Mesylate (Benztropine Mesylate 0.5 Mg Tablet) 0.5 mg PO BID ANNA Last Admin: 02/18/22 08:36 Dose: 0.5 mg Diphenhydramine HCl (Diphenhydramine Hcl 12.5 Mg/5 Ml Liquid) 50 mg PO BEDTIME PRN PRN Reason: insomnia Last Admin: 02/04/22 22:23 Dose: 50 mg Hydroxyzine HCl (Hydroxyzine Hcl 25 Mg Tablet) 25 mg PO Q6H PRN PRN Reason: Anxiety Last Admin: 02/03/22 21:43 Dose: 25 mg Lorazepam (Lorazepam 1 Mg Tablet) 1 mg PO BEDTIME PRN PRN Reason: insomnia Lurasidone HCl (Lurasidone Hcl 40 Mg Tablet) 40 mg PO DAILY [facility] Last Admin: 02/18/22 08:36 Dose: 40 mg Magnesium Hydroxide (Milk Of Magnesia 30 Ml Oral.Susp) 30 ml PO DAILY PRN PRN Reason: Constipation Olanzapine (Olanzapine 5 Mg Tablet) 5 mg PO BID [facility] Last Admin: 02/18/22 08:36 Dose: 5 mg Olanzapine (Olanzapine Odt 10 Mg Tab.Rapdis) 10 mg TRANSLINGU Q8H PRN PRN Reason: psychotic agitation Olanzapine (Olanzapine 10 Mg Vial) 10 mg IM DAILY PRN PRN Reason: if pt refuses Latuda perRogers Olanzapine (Olanzapine 10 Mg Vial) 5 mg IM BID PRN PRN Reason: if pt refuses po zyprexa-bharat Trazodone HCl (Trazodone Hcl 50 Mg Tablet) 50 mg PO BEDTIME PRN PRN Reason: Insomnia Allergies Allergies Allergy/AdvReac Type Severity Reaction Status Date / Time haloperidol [From Haldol] AdvReac Mild AGITATION Verified 01/31/22 16:01 From Inderal Allergy Intermediate IRREGULAR Uncoded 03/21/20 16:26 HEARTBEAT Haldol Allergy Unknown Agitated Uncoded 01/31/22 16:01 Propanolol Allergy Unknown Unknown Uncoded 01/31/22 16:01 Assessment & Plan Assessment & Plan (1) Schizoaffective disorder: Qualifiers: Schizoaffective disorder type: unspecified Qualified Code(s): F25.9 - Schizoaffective disorder, unspecified Status: Acute Code(s): F25.9 - Schizoaffective disorder, unspecified Assessment and Plan: 61 yo female, history of schizoaffective disorder, bipolar type. Pt found incoherent in [facility] with confusion, lability of mood, delusional content. Assisted to hospital with police. Today, labile, angry and significantly abusive on the unit with agitation, pacing, swearing, threatening, disrobing and confusion. Bharat's guardianship in place. Section 12[address] in place to 02/05. Plan: Pt has refused all diagnostics. Continue current regime, which follows Bharat's order. Pt asks for sleep medication, declines Trazodone. Ativan 1 mg HS prn insomnia Probable section 7/ Collateral contacts. 02/04/22 Bharat's guardianship clarified. Latuda 40 mg daily. If pt refuses Olanzapine 10 mg IM Will file Section VII on 02/05. Attempt alliance building-currently pt is violent, psychotic, labile 02/06/22 Support pt in the milieu Educate regarding behaviors which place her at risk in community Section 7, court 02/12/22. 02/07/22: No med changes, pt declines to engage 02/11/22: [place] building attempts 02/12/22: Continue current regime. 02/13/22: Court 02/26/22. Continue current regime. 02/14 no changes to current regimen 02/15 no changes to current regimen 02/16/[address] 02/26/22 02/17/22 Pt isolated cont tx plan remains withdrawn not engaged . 02/18/22 Court 02/26. Attempt to engage Jhon so she may have full participation in her process. Plan see above cont tx plan I spent minutes with the patient and/or on the patient floor today, greater than?50% of which was spent counseling/coordinating care. Informed Consent: does not understand Reason for contiued inpatient stay Substantial Risk for: harm to self, harm to others, inability to function and rapid decompensation
[2022-02-19] MEDS: OLANZapine 5 MG TABLET PO ×2 (08:56→19:54)
[2022-02-19] MEDS: Lurasidone HCl 40 MG TABLET PO (08:56)
[2022-02-19] MEDS: Benztropine Mesylate 0.5 MG TABLET PO ×2 (08:56→19:54)
[2022-02-19 18:00] VITALS: BP 118/78; PULSE 78; RESP 16; TEMP 37.1; O2SAT 98
--- NOTE | 2022-02-19 18:21 | P.PNPSI_ITS ---
Subjective Subjective Date of Service: 02/19/22 Reason For Visit: Schizoaffective disorder-Bipolar type Subjective Notes: Section 7 Healthcare Proxy: No Guardianship: No Medical Problems Affecting Mental Status: No Interim History: Jhon is in her room when approached. When entering she turns her head and covers her ears, without any verbalization today when tw attempts to meet with her. Discussion is not pursued as her history of agitation presumes she will escalate if her cues are not inferred. Medication Compliance: Yes Side effects from medications: No Attending Groups: No Review of Systems Acute medical concerns: No Medical Review of Systems: unchanged Review of Systems Reports behavioral changes Psychiatric: Reports behavioral changes, Reports auditory hallucinations, Reports irritability, Reports mood swings, Reports visual hallucinations and Reports hallucinations Mental Status Exam Mental Status Exam Patient Appearance: Disheveled Patient Orientation: Person and Place Level of Consciousness: Awake Patient Behavior: Guarded, Suspicious, Resistive to Care, Avoidant, Distractible and Poor Eye Contact Mood Description: Hostile Affect Description: Constricted Patient Cognition Impaired: Yes Ability to Follow Directions: Poor Speech Pattern: Spontaneous Speech and Soft-Spoken Memory Description: Remote Impaired and Episodic Impaired Hallucinations: Auditory Delusions: Paranoid Ideation Perceptual Disturbances: Depersonalization and Derealization Thought Content: positive for [place], positive for Perseveration, positive for Preoccupation, positive for Thought Blocking and positive for Evasive Depressive Symptoms: Increased Irritability Judgement: Poor Diagnostics Vital Signs (24Hr): BMI result Body Mass Index 0.0 Labs Results: 01/31/22 16:10 01/31/22 16:10 Medications Medications Current Medications Acetaminophen (Acetaminophen 325 Mg Tablet) 650 mg PO Q6H PRN PRN Reason: Headache/Pain Mild Scale (1-3) Al Hydroxide/Mg Hydroxide (Magnesium Hydrox/Alum Hydrox 30 Ml Oral.Susp) 30 ml PO Q6H PRN PRN Reason: Heartburn/Nausea Benztropine Mesylate (Benztropine Mesylate 0.5 Mg Tablet) 0.5 mg PO BID ANNA Last Admin: 02/19/22 08:56 Dose: 0.5 mg Diphenhydramine HCl (Diphenhydramine Hcl 12.5 Mg/5 Ml Liquid) 50 mg PO BEDTIME PRN PRN Reason: insomnia Last Admin: 02/04/22 22:23 Dose: 50 mg Hydroxyzine HCl (Hydroxyzine Hcl 25 Mg Tablet) 25 mg PO Q6H PRN PRN Reason: Anxiety Last Admin: 02/03/22 21:43 Dose: 25 mg Lorazepam (Lorazepam 1 Mg Tablet) 1 mg PO BEDTIME PRN PRN Reason: insomnia Lurasidone HCl (Lurasidone Hcl 40 Mg Tablet) 40 mg PO DAILY [facility] Last Admin: 02/19/22 08:56 Dose: 40 mg Magnesium Hydroxide (Milk Of Magnesia 30 Ml Oral.Susp) 30 ml PO DAILY PRN PRN Reason: Constipation Olanzapine (Olanzapine 5 Mg Tablet) 5 mg PO BID [facility] Last Admin: 02/19/22 08:56 Dose: 5 mg Olanzapine (Olanzapine Odt 10 Mg Tab.Rapdis) 10 mg TRANSLINGU Q8H PRN PRN Reason: psychotic agitation Olanzapine (Olanzapine 10 Mg Vial) 10 mg IM DAILY PRN PRN Reason: if pt refuses Latuda perRogers Olanzapine (Olanzapine 10 Mg Vial) 5 mg IM BID PRN PRN Reason: if pt refuses po zyprexa-bharat Trazodone HCl (Trazodone Hcl 50 Mg Tablet) 50 mg PO BEDTIME PRN PRN Reason: Insomnia Allergies Allergies Allergy/AdvReac Type Severity Reaction Status Date / Time haloperidol [From Haldol] AdvReac Mild AGITATION Verified 01/31/22 16:01 From Inderal Allergy Intermediate IRREGULAR Uncoded 03/21/20 16:26 HEARTBEAT Haldol Allergy Unknown Agitated Uncoded 01/31/22 16:01 Propanolol Allergy Unknown Unknown Uncoded 01/31/22 16:01 Assessment & Plan Assessment & Plan (1) Schizoaffective disorder: Qualifiers: Schizoaffective disorder type: unspecified Qualified Code(s): F25.9 - Schizoaffective disorder, unspecified Status: Acute Code(s): F25.9 - Schizoaffective disorder, unspecified Assessment and Plan: 61 yo female, history of schizoaffective disorder, bipolar type. Pt found incoherent in [employer] with confusion, lability of mood, delusional content. Assisted to hospital with police. Today, labile, angry and significantly abusive on the unit with agitation, pacing, swearing, threatening, disrobing and confusion. Bharat's guardianship in place. Section [address] in place to 02/05. Plan: Pt has refused all diagnostics. Continue current regime, which follows Bharat's order. Pt asks for sleep medication, declines Trazodone. Ativan 1 mg HS prn insomnia Probable section 7/ Collateral contacts. 02/04/22 Bharat's guardianship clarified. Latuda 40 mg daily. If pt refuses Olanzapine 10 mg IM Will file Section VII on 02/05. Attempt alliance building-currently pt is violent, psychotic, labile 02/06/22 Support pt in the milieu Educate regarding behaviors which place her at risk in community Section 7, court 02/12/22. 02/07/22: No med changes, pt declines to engage 02/11/22: [place] building attempts 02/12/22: Continue current regime. 02/13/22: Court 02/26/22. Continue current regime. 02/14 no changes to current regimen 02/15 no changes to current regimen 02/16/[address] 02/26/22 02/17/22 Pt isolated cont tx plan remains withdrawn not engaged . 02/19/22 Continue current plan I spent minutes with the patient and/or on the patient floor today, greater than?50% of which was spent counseling/coordinating care. Informed Consent: does not understand Reason for contiued inpatient stay Substantial Risk for: harm to self, harm to others, inability to function and rapid decompensation
[2022-02-20] MEDS: Benztropine Mesylate 0.5 MG TABLET PO ×2 (10:19→19:51)
[2022-02-20] MEDS: OLANZapine 5 MG TABLET PO (10:19)
[2022-02-20] MEDS: Lurasidone HCl 40 MG TABLET PO (10:19)
--- NOTE | 2022-02-20 17:55 | HO.PSYCHPN ---
Subjective Subjective Date of Service: 02/20/22 Reason For Visit: Schizoaffective disorder-Bipolar type Subjective Notes: Section 7 Healthcare Proxy: No Guardianship: No Medical Problems Affecting Mental Status: No Interim History: Discussed in team, consultation with [facility] who report, by history, Jhon is isolative, caustic, non-engaging, non-accepting of assistance, verbally abusive and threatening and can become violent and aggressive if approached. Several levels of service have been offered, including prison with refusal. Team is essentially seeing the same presentation as in community. This has been the case for a long period of time-pt does not interact, is verbally abusive to distance and volatile to prevent interaction. Court 02/26. Medication Compliance: Yes Side effects from medications: No Attending Groups: No Review of Systems Acute medical concerns: No Medical Review of Systems: unchanged Review of Systems Reports behavioral changes Psychiatric: Reports behavioral changes, Reports auditory hallucinations, Reports irritability, Reports mood swings, Reports visual hallucinations and Reports hallucinations Mental Status Exam Mental Status Exam Patient Appearance: Disheveled Patient Orientation: Person and Place Level of Consciousness: Awake Patient Behavior: Guarded, Suspicious, Resistive to Care, Avoidant, Distractible and Poor Eye Contact Mood Description: Hostile Affect Description: Constricted Patient Cognition Impaired: Yes Ability to Follow Directions: Poor Speech Pattern: Spontaneous Speech and Soft-Spoken Memory Description: Remote Impaired and Episodic Impaired Hallucinations: Auditory Delusions: Paranoid Ideation Perceptual Disturbances: Depersonalization and Derealization Thought Content: positive for [place], positive for Persever[place], positive for Preoccupation, positive for Thought Blocking and positive for Evasive Depressive Symptoms: Increased Irritability Judgement: Poor Diagnostics Vital Signs (24Hr): Vital Signs - 24 hr 02/19/22 18:00 Temperature 98.7 F Pulse Rate 78 Respiratory Rate 16 Blood Pressure 118/78 Pulse Oximetry 98 Oxygen Delivery Method Room Air BMI result Body Mass Index 0.0 Labs Results: 01/31/22 16:10 01/31/22 16:10 Medications Medications Current Medications Acetaminophen (Acetaminophen 325 Mg Tablet) 650 mg PO Q6H PRN PRN Reason: Headache/Pain Mild Scale (1-3) Al Hydroxide/Mg Hydroxide (Magnesium Hydrox/Alum Hydrox 30 Ml Oral.Susp) 30 ml PO Q6H PRN PRN Reason: Heartburn/Nausea Benztropine Mesylate (Benztropine Mesylate 0.5 Mg Tablet) 0.5 mg PO BID [facility] Last Admin: 02/20/22 10:19 Dose: 0.5 mg Diphenhydramine HCl (Diphenhydramine Hcl 12.5 Mg/5 Ml Liquid) 50 mg PO BEDTIME PRN PRN Reason: insomnia Last Admin: 02/04/22 22:23 Dose: 50 mg Hydroxyzine HCl (Hydroxyzine Hcl 25 Mg Tablet) 25 mg PO Q6H PRN PRN Reason: Anxiety Last Admin: 02/03/22 21:43 Dose: 25 mg Lorazepam (Lorazepam 1 Mg Tablet) 1 mg PO BEDTIME PRN PRN Reason: insomnia Lurasidone HCl (Lurasidone Hcl 40 Mg Tablet) 40 mg PO DAILY [facility] Last Admin: 02/20/22 10:19 Dose: 40 mg Magnesium Hydroxide (Milk Of Magnesia 30 Ml Oral.Susp) 30 ml PO DAILY PRN PRN Reason: Constipation Olanzapine (Olanzapine 5 Mg Tablet) 5 mg PO BID [facility] Last Admin: 02/20/22 10:19 Dose: 5 mg Olanzapine (Olanzapine Odt 10 Mg Tab.Rapdis) 10 mg TRANSLINGU Q8H PRN PRN Reason: psychotic agitation Olanzapine (Olanzapine 10 Mg Vial) 10 mg IM DAILY PRN PRN Reason: if pt refuses Latuda perRogers Olanzapine (Olanzapine 10 Mg Vial) 5 mg IM BID PRN PRN Reason: if pt refuses po zyprexa-bharat Trazodone HCl (Trazodone Hcl 50 Mg Tablet) 50 mg PO BEDTIME PRN PRN Reason: Insomnia Allergies Allergies Allergy/AdvReac Type Severity Reaction Status Date / Time haloperidol [From Haldol] AdvReac Mild AGITATION Verified 01/31/22 16:01 From Inderal Allergy Intermediate IRREGULAR Uncoded 03/21/20 16:26 HEARTBEAT Haldol Allergy Unknown Agitated Uncoded 01/31/22 16:01 Propanolol Allergy Unknown Unknown Uncoded 01/31/22 16:01 Assessment & Plan Assessment & Plan (1) Schizoaffective disorder: Qualifiers: Schizoaffective disorder type: unspecified Qualified Code(s): F25.9 - Schizoaffective disorder, unspecified Status: Acute Code(s): F25.9 - Schizoaffective disorder, unspecified Assessment and Plan: 61 yo female, history of schizoaffective disorder, bipolar type. Pt found incoherent in [facility] with confusion, lability of mood, delusional content. Assisted to hospital with police. Today, labile, angry and significantly abusive on the unit with agitation, pacing, swearing, threatening, disrobing and confusion. Bharat's guardianship in place. Section 12B in place to 02/05. Plan: Pt has refused all diagnostics. Continue current regime, which follows Bharat's order. Pt asks for sleep medication, declines Trazodone. Ativan 1 mg HS prn insomnia Probable section 7/ Collateral contacts. 02/04/22 Bharat's guardianship clarified. Latuda 40 mg daily. If pt refuses Olanzapine 10 mg IM Will file Section VII on 02/05. Attempt alliance building-currently pt is violent, psychotic, labile 02/06/22 Support pt in the milieu Educate regarding behaviors which place her at risk in community Section 7, court 02/12/22. 02/07/22: No med changes, pt declines to engage 02/11/22: [place] building attempts 02/12/22: Continue current regime. 02/13/22: Court 02/26/22. Continue current regime. 02/14 no changes to current regimen 02/15 no changes to current regimen 02/16/[address] 02/26/22 02/17/22 Pt isolated cont tx plan remains withdrawn not engaged . 02/19/22 Continue current plan 02/20/22 Increase Olanzapine to 7.5 mg bid I spent minutes with the patient and/or on the patient floor today, greater than?50% of which was spent counseling/coordinating care. Informed Consent: does not understand Reason for contiued inpatient stay Substantial Risk for: harm to self, harm to others, inability to function and rapid decompensation
[2022-02-20] MEDS: OLANZapine 7.5 MG TABLET PO (19:51)
[2022-02-21] MEDS: Benztropine Mesylate 0.5 MG TABLET PO ×2 (09:09→21:10)
[2022-02-21] MEDS: OLANZapine 7.5 MG TABLET PO ×2 (09:09→21:11)
[2022-02-21] MEDS: Lurasidone HCl 40 MG TABLET PO (09:09)
[2022-02-21 09:15] VITALS: RESP 18
[2022-02-21 17:14] VITALS: BP 121/71; PULSE 108; RESP 18; TEMP 36.6; O2SAT 95
--- NOTE | 2022-02-21 21:41 | HO.PSYCHPN ---
Subjective Subjective Date of Service: 02/21/22 Reason For Visit: Schizoaffective disorder-Bipolar type Interim History: lying on bed; pt keeps eyes closed when talking. bond underwriter inquires and she shares she's worried about her cat, not sure whose taking care of it. Service Planner asks questions but patient puts her hands over her ears...and won't engage further. Mental Status Exam Mental Status Exam Patient Appearance: Disheveled Patient Orientation: Person and Place Level of Consciousness: Awake Patient Behavior: Guarded, Suspicious, Resistive to Care, Avoidant, Distractible and Poor Eye Contact Mood Description: Hostile Affect Description: Constricted Patient Cognition Impaired: Yes Ability to Follow Directions: Poor Speech Pattern: Spontaneous Speech and Soft-Spoken Memory Description: Remote Impaired and Episodic Impaired Hallucinations: Auditory Delusions: Paranoid Ideation Perceptual Disturbances: Depersonalization and Derealization Thought Content: positive for [place], positive for [place]sever[place], positive for Preoccupation, positive for Thought Blocking and positive for Evasive Depressive Symptoms: Increased Irritability Judgement: Poor Diagnostics Vital Signs (24Hr): Vital Signs - 24 hr 02/21/22 09:15 02/21/22 17:14 Temperature 97.8 F Pulse Rate 108 H Respiratory Rate 18 18 Blood Pressure 121/71 Pulse Oximetry 95 Oxygen Delivery Method Room Air BMI result Body Mass Index 0.0 Labs Results: 01/31/22 16:10 01/31/22 16:10 Medications Medications Current Medications Acetaminophen (Acetaminophen 325 Mg Tablet) 650 mg PO Q6H PRN PRN Reason: Headache/Pain Mild Scale (1-3) Al Hydroxide/Mg Hydroxide (Magnesium Hydrox/Alum Hydrox 30 Ml Oral.Susp) 30 ml PO Q6H PRN PRN Reason: Heartburn/Nausea Benztropine Mesylate (Benztropine Mesylate 0.5 Mg Tablet) 0.5 mg PO BID ANNA Last Admin: 02/21/22 21:10 Dose: 0.5 mg Diphenhydramine HCl (Diphenhydramine Hcl 12.5 Mg/5 Ml Liquid) 50 mg PO BEDTIME PRN PRN Reason: insomnia Last Admin: 02/04/22 22:23 Dose: 50 mg Hydroxyzine HCl (Hydroxyzine Hcl 25 Mg Tablet) 25 mg PO Q6H PRN PRN Reason: Anxiety Last Admin: 02/03/22 21:43 Dose: 25 mg Lorazepam (Lorazepam 1 Mg Tablet) 1 mg PO BEDTIME PRN PRN Reason: insomnia Lurasidone HCl (Lurasidone Hcl 40 Mg Tablet) 40 mg PO DAILY [facility] Last Admin: 02/21/22 09:09 Dose: 40 mg Magnesium Hydroxide (Milk Of Magnesia 30 Ml Oral.Susp) 30 ml PO DAILY PRN PRN Reason: Constipation Olanzapine (Olanzapine Odt 10 Mg Tab.Rapdis) 10 mg TRANSLINGU Q8H PRN PRN Reason: psychotic agitation Olanzapine (Olanzapine 10 Mg Vial) 10 mg IM DAILY PRN PRN Reason: if pt refuses Latuda perRogers Olanzapine (Olanzapine 7.5 Mg Tablet) 7.5 mg PO BID [facility] Last Admin: 02/21/22 21:11 Dose: 7.5 mg Olanzapine (Olanzapine 10 Mg Vial) 7.5 mg IM BID PRN PRN Reason: if pt refuses po zyprexa-bharat Trazodone HCl (Trazodone Hcl 50 Mg Tablet) 50 mg PO BEDTIME PRN PRN Reason: Insomnia Allergies Allergies Allergy/AdvReac Type Severity Reaction Status Date / Time haloperidol [From Haldol] AdvReac Mild AGITATION Verified 01/31/22 16:01 From Inderal Allergy Intermediate IRREGULAR Uncoded 03/21/20 16:26 HEARTBEAT Haldol Allergy Unknown Agitated Uncoded 01/31/22 16:01 Propanolol Allergy Unknown Unknown Uncoded 01/31/22 16:01 Assessment & Plan Assessment & Plan (1) Schizoaffective disorder: Qualifiers: Schizoaffective disorder type: unspecified Qualified Code(s): F25.9 - Schizoaffective disorder, unspecified Status: Acute Code(s): F25.9 - Schizoaffective disorder, unspecified Assessment and Plan: 61 yo female, history of schizoaffective disorder, bipolar type. [facility], lability of mood, delusional content. Assisted to hospital with police. Today, labile, angry and significantly abusive on the unit with agitation, pacing, swearing, threatening, disrobing and confusion. Bharat's guardianship in place. Section [address] in place to 02/05. Plan: Pt has refused all diagnostics. Continue current regime, which follows Bharat's order. Pt asks for sleep medication, declines Trazodone. Ativan 1 mg HS prn insomnia Probable section 01/09 Collateral contacts. 02/04/22 Bharat's guardianship clarified. Latuda 40 mg daily. If pt refuses Olanzapine 10 mg IM Will file Section VII on 02/05. Attempt alliance building-currently pt is violent, psychotic, labile 02/06/22 Support pt in the milieu Educate regarding behaviors which place her at risk in community Section 7, court 02/12/22. 02/07/22: No med changes, pt declines to engage 02/11/22: [place] building attempts 02/12/22: Continue current regime. 02/13/22: Court 02/26/22. Continue current regime. 02/14 no changes to current regimen 02/15 no changes to current regimen 02/16/[address] 02/26/22 02/17/22 Pt isolated cont tx plan remains withdrawn not engaged . 02/19/22 Continue current plan 02/20/22 Increase Olanzapine to 7.5 mg bid 02/21 continue current tx plan I spent minutes with the patient and/or on the patient floor today, greater than?50% of which was spent counseling/coordinating care. Reason for contiued inpatient stay Substantial Risk for: inability to function
[2022-02-22] MEDS: Lurasidone HCl 40 MG TABLET PO (09:06)
[2022-02-22] MEDS: OLANZapine 7.5 MG TABLET PO ×2 (09:06→19:51)
[2022-02-22] MEDS: Benztropine Mesylate 0.5 MG TABLET PO ×2 (09:06→19:51)
[2022-02-22 16:00] VITALS: BP 126/79; PULSE 94; RESP 18; TEMP 36.8; O2SAT 98
--- NOTE | 2022-02-22 16:49 | HO.PSYCHPN ---
Subjective Subjective Date of Service: 02/22/22 Reason For Visit: Schizoaffective disorder-Bipolar type Interim History: lying in bed with eyes closed; says i'm fine and then no to any other questions Mental Status Exam Mental Status Exam Patient Appearance: Disheveled Patient Orientation: Person and Place Level of Consciousness: Awake Patient Behavior: Guarded, Suspicious, Resistive to Care, Avoidant, Distractible and Poor Eye Contact Mood Description: Hostile Affect Description: Constricted Patient Cognition Impaired: Yes Ability to Follow Directions: Poor Speech Pattern: Spontaneous Speech and Soft-Spoken Memory Description: Remote Impaired and Episodic Impaired Hallucinations: Auditory Delusions: Paranoid Ideation Perceptual Disturbances: Depersonalization and Derealization Thought Content: positive for [place], positive for [place], positive for Preoccupation, positive for Thought Blocking and positive for Evasive Depressive Symptoms: Increased Irritability Judgement: Poor Diagnostics Vital Signs (24Hr): Vital Signs - 24 hr 02/21/22 17:14 02/22/22 16:00 Temperature 97.8 F 98.2 F Pulse Rate 108 H 94 Respiratory Rate 18 18 Blood Pressure 121/71 126/79 Pulse Oximetry 95 98 Oxygen Delivery Method Room Air Room Air BMI result Body Mass Index 0.0 Labs Results: 01/31/22 16:10 01/31/22 16:10 Medications Medications Current Medications Acetaminophen (Acetaminophen 325 Mg Tablet) 650 mg PO Q6H PRN PRN Reason: Headache/Pain Mild Scale (1-3) Al Hydroxide/Mg Hydroxide (Magnesium Hydrox/Alum Hydrox 30 Ml Oral.Susp) 30 ml PO Q6H PRN PRN Reason: Heartburn/Nausea Benztropine Mesylate (Benztropine Mesylate 0.5 Mg Tablet) 0.5 mg PO BID [facility] Last Admin: 02/22/22 09:06 Dose: 0.5 mg Diphenhydramine HCl (Diphenhydramine Hcl 12.5 Mg/5 Ml Liquid) 50 mg PO BEDTIME PRN PRN Reason: insomnia Last Admin: 02/04/22 22:23 Dose: 50 mg Hydroxyzine HCl (Hydroxyzine Hcl 25 Mg Tablet) 25 mg PO Q6H PRN PRN Reason: Anxiety Last Admin: 02/03/22 21:43 Dose: 25 mg Lurasidone HCl (Lurasidone Hcl 40 Mg Tablet) 40 mg PO DAILY [facility] Last Admin: 02/22/22 09:06 Dose: 40 mg Magnesium Hydroxide (Milk Of Magnesia 30 Ml Oral.Susp) 30 ml PO DAILY PRN PRN Reason: Constipation Olanzapine (Olanzapine Odt 10 Mg Tab.Rapdis) 10 mg TRANSLINGU Q8H PRN PRN Reason: psychotic agitation Olanzapine (Olanzapine 10 Mg Vial) 10 mg IM DAILY PRN PRN Reason: if pt refuses Latuda perRogers Olanzapine (Olanzapine 7.5 Mg Tablet) 7.5 mg PO BID [facility] Last Admin: 02/22/22 09:06 Dose: 7.5 mg Olanzapine (Olanzapine 10 Mg Vial) 7.5 mg IM BID PRN PRN Reason: if pt refuses po zyprexa-bharat Trazodone HCl (Trazodone Hcl 50 Mg Tablet) 50 mg PO BEDTIME PRN PRN Reason: Insomnia Allergies Allergies Allergy/AdvReac Type Severity Reaction Status Date / Time haloperidol [From Haldol] AdvReac Mild AGITATION Verified 01/31/22 16:01 From Inderal Allergy Intermediate IRREGULAR Uncoded 03/21/20 16:26 HEARTBEAT Haldol Allergy Unknown Agitated Uncoded 01/31/22 16:01 Propanolol Allergy Unknown Unknown Uncoded 01/31/22 16:01 Assessment & Plan Assessment & Plan (1) Schizoaffective disorder: Qualifiers: Schizoaffective disorder type: unspecified Qualified Code(s): F25.9 - Schizoaffective disorder, unspecified Status: Acute Code(s): F25.9 - Schizoaffective disorder, unspecified Assessment and Plan: 61 yo female, history of schizoaffective disorder, bipolar type. Pt found incoherent in [facility] with confusion, lability of mood, delusional content. Assisted to hospital with police. Today, labile, angry and significantly abusive on the unit with agitation, pacing, swearing, threatening, disrobing and confusion. Bharat's guardianship in place. Section [address] in place to 02/05. Plan: Pt has refused all diagnostics. Continue current regime, which follows Bharat's order. Pt asks for sleep medication, declines Trazodone. Ativan 1 mg HS prn insomnia Probable section 01/09 Collateral contacts. 02/04/22 Bharat's guardianship clarified. Latuda 40 mg daily. If pt refuses Olanzapine 10 mg IM Will file Section VII on 02/05. Attempt alliance building-currently pt is violent, psychotic, labile 02/06/22 Support pt in the milieu Educate regarding behaviors which place her at risk in community Section 7, court 02/12/22. 02/07/22: No med changes, pt declines to engage 02/11/22: [place] building attempts 02/12/22: Continue current regime. 02/13/22: Court 02/26/22. Continue current regime. 02/14 no changes to current regimen 02/15 no changes to current regimen 02/16/[address] 02/26/22 02/17/22 Pt isolated cont tx plan remains withdrawn not engaged . 02/19/22 Continue current plan 02/20/22 Increase Olanzapine to 7.5 mg bid 02/21 continue current tx plan 02/22 continue current tx plan I spent minutes with the patient and/or on the patient floor today, greater than?50% of which was spent counseling/coordinating care. Reason for contiued inpatient stay Substantial Risk for: inability to function
[2022-02-23] MEDS: OLANZapine 7.5 MG TABLET PO ×2 (09:43→19:53)
[2022-02-23] MEDS: Benztropine Mesylate 0.5 MG TABLET PO ×2 (09:43→19:53)
[2022-02-23] MEDS: Lurasidone HCl 40 MG TABLET PO (09:43)
--- NOTE | 2022-02-23 16:04 | P.PNPSI_ITS ---
Subjective Subjective Date of Service: 02/23/22 Reason For Visit: Schizoaffective disorder-Bipolar type Subjective Notes: Section 7 Healthcare Proxy: No Guardianship: No Medical Problems Affecting Mental Status: No Interim History: Met with pt to discuss her thoughts regarding court proceedings this week. Pt asked if her apartment was still intact, asked about her cat, asked about what options were available-discussed going home to apartment, long term living, staying in hospital if committed, application to [place]. Asked pt what options she could think of which she has interest in. Nothing, really. Pt asked to think about these. Discussion will continue. Medication Compliance: Yes Side effects from medications: No Attending Groups: No Review of Systems Acute medical concerns: No Medical Review of Systems: unchanged Review of Systems Reports behavioral changes Psychiatric: Reports behavioral changes, Reports difficulty concentrating, Reports auditory hallucinations, Reports irritability, Reports mood swings, Reports paranoia and Reports hallucinations Mental Status Exam Mental Status Exam Patient Appearance: Disheveled Patient Orientation: Person and Place Level of Consciousness: Alert Patient Behavior: Guarded, Suspicious, Resistive to Care, Fatigued, Distractible, Isolative and Poor Eye Contact Mood Description: Labile Affect Description: Labile Patient Cognition Impaired: Yes Ability to Follow Directions: Fair Speech Pattern: Spontaneous Speech Memory Description: Remote Impaired and Episodic Impaired Hallucinations: Auditory Delusions: Being Controlled, Paranoid Ideation and Present Perceptual Disturbances: Depersonalization, Derealization and Hallucinations Thought Process: Distracted and Rumination Thought Content: positive for [place], positive for Circumstantial, positive for Preoccupation and positive for Thought Blocking Depressive Symptoms: Increased Irritability, Unhappiness and Loss of Energy Judgement: Poor Diagnostics Vital Signs (24Hr): BMI result Body Mass Index 0.0 Labs Results: 01/31/22 16:10 01/31/22 16:10 Medications Medications Current Medications Acetaminophen (Acetaminophen 325 Mg Tablet) 650 mg PO Q6H PRN PRN Reason: Headache/Pain Mild Scale (1-3) Al Hydroxide/Mg Hydroxide (Magnesium Hydrox/Alum Hydrox 30 Ml Oral.Susp) 30 ml PO Q6H PRN PRN Reason: Heartburn/Nausea Benztropine Mesylate (Benztropine Mesylate 0.5 Mg Tablet) 0.5 mg PO BID [facility] Last Admin: 02/23/22 09:43 Dose: 0.5 mg Diphenhydramine HCl (Diphenhydramine Hcl 12.5 Mg/5 Ml Liquid) 50 mg PO BEDTIME PRN PRN Reason: insomnia Last Admin: 02/04/22 22:23 Dose: 50 mg Hydroxyzine HCl (Hydroxyzine Hcl 25 Mg Tablet) 25 mg PO Q6H PRN PRN Reason: Anxiety Last Admin: 02/03/22 21:43 Dose: 25 mg Lurasidone HCl (Lurasidone Hcl 40 Mg Tablet) 40 mg PO DAILY [facility] Last Admin: 02/23/22 09:43 Dose: 40 mg Magnesium Hydroxide (Milk Of Magnesia 30 Ml Oral.Susp) 30 ml PO DAILY PRN PRN Reason: Constipation Olanzapine (Olanzapine Odt 10 Mg Tab.Rapdis) 10 mg TRANSLINGU Q8H PRN PRN Reason: psychotic agitation Olanzapine (Olanzapine 10 Mg Vial) 10 mg IM DAILY PRN PRN Reason: if pt refuses Latuda perRogers Olanzapine (Olanzapine 7.5 Mg Tablet) 7.5 mg PO BID [facility] Last Admin: 02/23/22 09:43 Dose: 7.5 mg Olanzapine (Olanzapine 10 Mg Vial) 7.5 mg IM BID PRN PRN Reason: if pt refuses po zyprexa-bharat Trazodone HCl (Trazodone Hcl 50 Mg Tablet) 50 mg PO BEDTIME PRN PRN Reason: Insomnia Allergies Allergies Allergy/AdvReac Type Severity Reaction Status Date / Time haloperidol [From Haldol] AdvReac Mild AGITATION Verified 01/31/22 16:01 From Inderal Allergy Intermediate IRREGULAR Uncoded 03/21/20 16:26 HEARTBEAT Haldol Allergy Unknown Agitated Uncoded 01/31/22 16:01 Propanolol Allergy Unknown Unknown Uncoded 01/31/22 16:01 Assessment & Plan Assessment & Plan (1) Schizoaffective disorder: Qualifiers: Schizoaffective disorder type: unspecified Qualified Code(s): F25.9 - Schizoaffective disorder, unspecified Status: Acute Code(s): F25.9 - Schizoaffective disorder, unspecified Assessment and Plan: 61 yo female, history of schizoaffective disorder, bipolar type. Pt found incoherent in [facility] with confusion, lability of mood, delusional content. Assisted to hospital with police. Today, labile, angry and significantly abusive on the unit with agitation, pacing, swearing, threatening, disrobing and confusion. Bharat's guardianship in place. Section [address] in place to 02/05. Plan: Pt has refused all diagnostics. Continue current regime, which follows Bharat's order. Pt asks for sleep medication, declines Trazodone. Ativan 1 mg HS prn insomnia Probable section 7/ Collateral contacts. 02/04/22 Bharat's guardianship clarified. Latuda 40 mg daily. If pt refuses Olanzapine 10 mg IM Will file Section VII on 02/05. Attempt alliance building-currently pt is violent, psychotic, labile 02/06/22 Support pt in the milieu Educate regarding behaviors which place her at risk in community Section 7, court 02/12/22. 02/07/22: No med changes, pt declines to engage 02/11/22: [place] building attempts 02/12/22: Continue current regime. 02/13/22: Court 02/26/22. Continue current regime. 02/14 no changes to current regimen 02/15 no changes to current regimen 02/16/[address] 02/26/22 02/17/22 Pt isolated cont tx plan remains withdrawn not engaged . 02/19/22 Continue current plan 02/20/22 Increase Olanzapine to 7.5 mg bid 02/21 continue current tx plan 02/22 continue current tx plan 02/23 Pt tolerated a brief discussion of her thoughts regarding her court date and treatment planning before dismissing tw. Will continue this discussion on 02/24. I spent minutes with the patient and/or on the patient floor today, greater than?50% of which was spent counseling/coordinating care. Informed Consent: does not understand Reason for contiued inpatient stay Substantial Risk for: rapid decompensation
[2022-02-24 06:00] VITALS: BP 138/84; PULSE 109; RESP 18; TEMP 36.8; O2SAT 98
[2022-02-24] MEDS: Benztropine Mesylate 0.5 MG TABLET PO ×2 (09:54→20:34)
[2022-02-24] MEDS: OLANZapine 7.5 MG TABLET PO ×2 (09:54→20:34)
[2022-02-24] MEDS: Lurasidone HCl 40 MG TABLET PO (09:54)
--- NOTE | 2022-02-24 10:43 | HO.PSYCHPN ---
Subjective Subjective Date of Service: 02/24/22 Reason For Visit: Schizoaffective disorder-Bipolar type Subjective Notes: Section 7 Healthcare Proxy: No Guardianship: Yes Medical Problems Affecting Mental Status: No Interim History: In bed, places the covers over her head when tw attempts to talk with her- no . Per team, isolative and withdrawn-eating, drinking, accepting medications. Not attending to ADL's. Declines group and social interactions with peers. Medication Compliance: Yes Side effects from medications: No Attending Groups: No Review of Systems Acute medical concerns: No Medical Review of Systems: unchanged Review of Systems Reports behavioral changes Psychiatric: Reports behavioral changes, Reports difficulty concentrating, Reports auditory hallucinations, Reports irritability, Reports mood swings, Reports paranoia and Reports hallucinations Mental Status Exam Mental Status Exam Patient Appearance: Disheveled Patient Orientation: Person and Place Level of Consciousness: Alert Patient Behavior: Guarded, Suspicious, Resistive to Care, Fatigued, Distractible, Isolative and Poor Eye Contact Mood Description: Labile Affect Description: Labile Patient Cognition Impaired: Yes Ability to Follow Directions: Fair Speech Pattern: Spontaneous Speech Memory Description: Remote Impaired and Episodic Impaired Hallucinations: Auditory Delusions: Being Controlled, Paranoid Ideation and Present Perceptual Disturbances: Depersonalization, Derealization and Hallucinations Thought Process: Distracted and Rumination Thought Content: positive for [place], positive for [place]um[place], positive for Preoccupation and positive for Thought Blocking Depressive Symptoms: Increased Irritability, Unhappiness and Loss of Energy Judgement: Poor Diagnostics Vital Signs (24Hr): Vital Signs - 24 hr 02/24/22 06:00 Temperature 98.2 F Pulse Rate 109 H Respiratory Rate 18 Blood Pressure 138/84 Pulse Oximetry 98 Oxygen Delivery Method Room Air BMI result Body Mass Index 0.0 Labs Results: 01/31/22 16:10 01/31/22 16:10 Medications Medications Current Medications Acetaminophen (Acetaminophen 325 Mg Tablet) 650 mg PO Q6H PRN PRN Reason: Headache/Pain Mild Scale (1-3) Al Hydroxide/Mg Hydroxide (Magnesium Hydrox/Alum Hydrox 30 Ml Oral.Susp) 30 ml PO Q6H PRN PRN Reason: Heartburn/Nausea Benztropine Mesylate (Benztropine Mesylate 0.5 Mg Tablet) 0.5 mg PO BID [facility] Last Admin: 02/24/22 09:54 Dose: 0.5 mg Diphenhydramine HCl (Diphenhydramine Hcl 12.5 Mg/5 Ml Liquid) 50 mg PO BEDTIME PRN PRN Reason: insomnia Last Admin: 02/04/22 22:23 Dose: 50 mg Hydroxyzine HCl (Hydroxyzine Hcl 25 Mg Tablet) 25 mg PO Q6H PRN PRN Reason: Anxiety Last Admin: 02/03/22 21:43 Dose: 25 mg Lurasidone HCl (Lurasidone Hcl 40 Mg Tablet) 40 mg PO DAILY [facility] Last Admin: 02/24/22 09:54 Dose: 40 mg Magnesium Hydroxide (Milk Of Magnesia 30 Ml Oral.Susp) 30 ml PO DAILY PRN PRN Reason: Constipation Olanzapine (Olanzapine Odt 10 Mg Tab.Rapdis) 10 mg TRANSLINGU Q8H PRN PRN Reason: psychotic agitation Olanzapine (Olanzapine 10 Mg Vial) 10 mg IM DAILY PRN PRN Reason: if pt refuses Latuda perRogers Olanzapine (Olanzapine 7.5 Mg Tablet) 7.5 mg PO BID [facility] Last Admin: 02/24/22 09:54 Dose: 7.5 mg Olanzapine (Olanzapine 10 Mg Vial) 7.5 mg IM BID PRN PRN Reason: if pt refuses po zyprexa-bhraat Trazodone HCl (Trazodone Hcl 50 Mg Tablet) 50 mg PO BEDTIME PRN PRN Reason: Insomnia Allergies Allergies Allergy/AdvReac Type Severity Reaction Status Date / Time haloperidol [From Haldol] AdvReac Mild AGITATION Verified 01/31/22 16:01 From Inderal Allergy Intermediate IRREGULAR Uncoded 03/21/20 16:26 HEARTBEAT Haldol Allergy Unknown Agitated Uncoded 01/31/22 16:01 Propanolol Allergy Unknown Unknown Uncoded 01/31/22 16:01 Assessment & Plan Assessment & Plan (1) Schizoaffective disorder: Qualifiers: Schizoaffective disorder type: unspecified Qualified Code(s): F25.9 - Schizoaffective disorder, unspecified Status: Acute Code(s): F25.9 - Schizoaffective disorder, unspecified Assessment and Plan: 61 yo female, history of schizoaffective disorder, bipolar type. [facility], lability of mood, delusional content. Assisted to hospital with police. Today, labile, angry and significantly abusive on the unit with agitation, pacing, swearing, threatening, disrobing and confusion. Bharat's guardianship in place. Section [address] in place to 02/05. Plan: Pt has refused all diagnostics. Continue current regime, which follows Bharat's order. Pt asks for sleep medication, declines Trazodone. Ativan 1 mg HS prn insomnia Probable section 7/ Collateral contacts. 02/04/22 Bharat's guardianship clarified. Latuda 40 mg daily. If pt refuses Olanzapine 10 mg IM Will file Section VII on 02/05. Attempt alliance building-currently pt is violent, psychotic, labile 02/06/22 Support pt in the milieu Educate regarding behaviors which place her at risk in community Section 7, court 02/12/22. 02/07/22: No med changes, pt declines to engage 02/11/22: [place] building attempts 02/12/22: Continue current regime. 02/13/22: Court 02/26/22. Continue current regime. 02/14 no changes to current regimen 02/15 no changes to current regimen 02/16/[address] 02/26/22 02/17/22 Pt isolated cont tx plan remains withdrawn not engaged . 02/19/22 Continue current plan 02/20/22 Increase Olanzapine to 7.5 mg bid 02/21 continue current tx plan 02/22 continue current tx plan 02/23 Pt tolerated a brief discussion of her thoughts regarding her court date and treatment planning before dismissing tw. Will continue this discussion on 02/24. 02/24/22 [address] discussion of upcoming court date. Requested continuation so we can continue to attempt to work with pt-Court date rescheduled for 03/12/22. I spent minutes with the patient and/or on the patient floor today, greater than?50% of which was spent counseling/coordinating care. Informed Consent: does not understand Reason for contiued inpatient stay Substantial Risk for: harm to self, harm to others, inability to function and rapid decompensation
[2022-02-24 18:00] VITALS: BP 122/87; PULSE 80; RESP 20; TEMP 36.2; O2SAT 98
[2022-02-25] MEDS: Benztropine Mesylate 0.5 MG TABLET PO ×2 (09:10→19:50)
[2022-02-25] MEDS: Lurasidone HCl 40 MG TABLET PO (09:10)
[2022-02-25] MEDS: OLANZapine 7.5 MG TABLET PO ×2 (09:10→19:50)
--- NOTE | 2022-02-25 16:27 | P.PNPSI_ITS ---
Subjective Subjective Date of Service: 02/25/22 Reason For Visit: Schizoaffective disorder-Bipolar type Subjective Notes: Section 7 Healthcare Proxy: No Guardianship: No Medical Problems Affecting Mental Status: No Interim History: I can't talk of it today, tomorrow? Jhon struggling with communication regarding treatment planning, what would be the plan of care which she would have satisfaction with and her opinions as to how to proceed. Today she is quiet, appropriate, non caustic, asking to address these issues possibly tomorrow. Discussed that we were allowed to postpone her court date- thank you , to allow her more time to participate in her care. Medication Compliance: Yes Side effects from medications: No Attending Groups: No Review of Systems Acute medical concerns: No Medical Review of Systems: unchanged Review of Systems Reports behavioral changes Psychiatric: Reports behavioral changes, Reports difficulty concentrating, Reports auditory hallucinations, Reports irritability, Reports mood swings, Reports paranoia and Reports hallucinations Mental Status Exam Mental Status Exam Patient Appearance: Disheveled Patient Orientation: Person and Place Level of Consciousness: Alert Patient Behavior: Guarded, Suspicious, Resistive to Care, Fatigued, Distractible, Isolative and Poor Eye Contact Mood Description: Labile Affect Description: Labile Patient Cognition Impaired: Yes Ability to Follow Directions: Fair Speech Pattern: Spontaneous Speech Memory Description: Remote Impaired and Episodic Impaired Hallucinations: Auditory Delusions: Being Controlled, Paranoid Ideation and Present Perceptual Disturbances: Depersonalization, Derealization and Hallucinations Thought Process: Distracted and Rumination Thought Content: positive for [place], positive for [place], positive for Preoccupation and positive for Thought Blocking Depressive Symptoms: Increased Irritability, Unhappiness and Loss of Energy Judgement: Poor Diagnostics Vital Signs (24Hr): Vital Signs - 24 hr 02/24/22 18:00 Temperature 97.1 F Pulse Rate 80 Respiratory Rate 20 Blood Pressure 122/87 Pulse Oximetry 98 Oxygen Delivery Method Room Air BMI result Body Mass Index 0.0 Labs Results: 01/31/22 16:10 01/31/22 16:10 Medications Medications Current Medications Acetaminophen (Acetaminophen 325 Mg Tablet) 650 mg PO Q6H PRN PRN Reason: Headache/Pain Mild Scale (1-3) Al Hydroxide/Mg Hydroxide (Magnesium Hydrox/Alum Hydrox 30 Ml Oral.Susp) 30 ml PO Q6H PRN PRN Reason: Heartburn/Nausea Benztropine Mesylate (Benztropine Mesylate 0.5 Mg Tablet) 0.5 mg PO BID [facility] Last Admin: 02/25/22 09:10 Dose: 0.5 mg Diphenhydramine HCl (Diphenhydramine Hcl 12.5 Mg/5 Ml Liquid) 50 mg PO BEDTIME PRN PRN Reason: insomnia Last Admin: 02/04/22 22:23 Dose: 50 mg Hydroxyzine HCl (Hydroxyzine Hcl 25 Mg Tablet) 25 mg PO Q6H PRN PRN Reason: Anxiety Last Admin: 02/03/22 21:43 Dose: 25 mg Lurasidone HCl (Lurasidone Hcl 40 Mg Tablet) 40 mg PO DAILY [facility] Last Admin: 02/25/22 09:10 Dose: 40 mg Magnesium Hydroxide (Milk Of Magnesia 30 Ml Oral.Susp) 30 ml PO DAILY PRN PRN Reason: Constipation Olanzapine (Olanzapine Odt 10 Mg Tab.Rapdis) 10 mg TRANSLINGU Q8H PRN PRN Reason: psychotic agitation Olanzapine (Olanzapine 10 Mg Vial) 10 mg IM DAILY PRN PRN Reason: if pt refuses Latuda perRogers Olanzapine (Olanzapine 7.5 Mg Tablet) 7.5 mg PO BID [facility] Last Admin: 02/25/22 09:10 Dose: 7.5 mg Olanzapine (Olanzapine 10 Mg Vial) 7.5 mg IM BID PRN PRN Reason: if pt refuses po zyprexa-bharat Trazodone HCl (Trazodone Hcl 50 Mg Tablet) 50 mg PO BEDTIME PRN PRN Reason: Insomnia Allergies Allergies Allergy/AdvReac Type Severity Reaction Status Date / Time haloperidol [From Haldol] AdvReac Mild AGITATION Verified 01/31/22 16:01 From Inderal Allergy Intermediate IRREGULAR Uncoded 03/21/20 16:26 HEARTBEAT Haldol Allergy Unknown Agitated Uncoded 01/31/22 16:01 Propanolol Allergy Unknown Unknown Uncoded 01/31/22 16:01 Assessment & Plan Assessment & Plan (1) Schizoaffective disorder: Qualifiers: Schizoaffective disorder type: unspecified Qualified Code(s): F25.9 - Schizoaffective disorder, unspecified Status: Acute Code(s): F25.9 - Schizoaffective disorder, unspecified Assessment and Plan: 61 yo female, history of schizoaffective disorder, bipolar type. Pt found incoherent in [facility] with confusion, lability of mood, delusional content. Assisted to hospital with police. Today, labile, angry and significantly abusive on the unit with agitation, pacing, swearing, threatening, disrobing and confusion. Bharat's guardianship in place. Section 12B in place to 02/05. Plan: Pt has refused all diagnostics. Continue current regime, which follows Bharat's order. Pt asks for sleep medication, declines Trazodone. Ativan 1 mg HS prn insomnia Probable section 7/ Collateral contacts. 02/04/22 Bharat's guardianship clarified. Latuda 40 mg daily. If pt refuses Olanzapine 10 mg IM Will file Section VII on 02/05. Attempt alliance building-currently pt is violent, psychotic, labile 02/06/22 Support pt in the milieu Educate regarding behaviors which place her at risk in community Section 7, court 02/12/22. 02/07/22: No med changes, pt declines to engage 02/11/22: [place] building attempts 02/12/22: Continue current regime. 02/13/22: Court 02/26/22. Continue current regime. 02/14 no changes to current regimen 02/15 no changes to current regimen 02/16/[address] 02/26/22 02/17/22 Pt isolated cont tx plan remains withdrawn not engaged . 02/19/22 Continue current plan 02/20/22 Increase Olanzapine to 7.5 mg bid 02/21 continue current tx plan 02/22 continue current tx plan 02/23 Pt tolerated a brief discussion of her thoughts regarding her court date and treatment planning before dismissing tw. Will continue this discussion on 02/24. 02/24/22 Decl[address] discussion of upcoming court date. Requested continuation so we can continue to attempt to work with pt-Court date rescheduled for 03/12/22. 02/25/22 Continue current plan. Encourage Jhon to participate in care planning. I spent minutes with the patient and/or on the patient floor today, greater than?50% of which was spent counseling/coordinating care. Informed Consent: does not understand Reason for contiued inpatient stay Substantial Risk for: harm to self, harm to others, inability to function and rapid decompensation
[2022-02-25 18:00] VITALS: BP 136/78; PULSE 98; TEMP 36.7; O2SAT 97
[2022-02-25] MEDS: diphenhydrAMINE HCl 12.5 MG/5 ML LIQUID 50 MG PO (19:50)
[2022-02-26 06:00] VITALS: BP 130/73; PULSE 89; RESP 18; TEMP 36.3; O2SAT 99
[2022-02-26 07:00] VITALS: BMI 29.1
[2022-02-26] MEDS: Benztropine Mesylate 0.5 MG TABLET PO ×2 (09:04→20:12)
[2022-02-26] MEDS: Lurasidone HCl 40 MG TABLET PO (09:04)
[2022-02-26] MEDS: OLANZapine 7.5 MG TABLET PO (09:04)
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
[2022-02-26] MEDS: OLANZapine 10 MG TABLET PO (20:13)
[2022-02-27] MEDS: OLANZapine 10 MG TABLET PO ×2 (08:32→19:43)
[2022-02-27] MEDS: Benztropine Mesylate 0.5 MG TABLET PO ×2 (08:32→19:43)
--- NOTE | 2022-02-27 17:42 | HO.PSYCHPN ---
Subjective Subjective Date of Service: 02/27/22 Reason For Visit: Schizoaffective disorder-Bipolar type Subjective Notes: Section 7 Healthcare Proxy: No Guardianship: No Medical Problems Affecting Mental Status: No Interim History: More visable in milieu. Checked in with Jhon regrding the concerns she brought up and reported progress in our tasks. She expressed gratitude. Attending some groups, considering another mood stabilizer to add to Olanzapine. Medication Compliance: Yes Side effects from medications: No Attending Groups: Intermittent Review of Systems Acute medical concerns: No Medical Review of Systems: unchanged Mental Status Exam Mental Status Exam Patient Appearance: Appropriate Patient Orientation: Person, Place, Time and Situation Level of Consciousness: Alert Patient Behavior: Cooperative and Good Eye Contact Mood Description: Appropriate Affect Description: Appropriate Patient Cognition Impaired: No Ability to Follow Directions: Good Speech Pattern: Spontaneous Speech Memory Description: Intact Hallucinations: None Delusions: Paranoid Ideation Thought Process: Goal Oriented Thought Content: positive for Goal Oriented Depressive Symptoms: Increased Anxiety Judgement: Fair Diagnostics Vital Signs (24Hr): BMI result Body Mass Index 29.1 Labs Results: 01/31/22 16:10 01/31/22 16:10 Medications Medications Current Medications Acetaminophen (Acetaminophen 325 Mg Tablet) 650 mg PO Q6H PRN PRN Reason: Headache/Pain Mild Scale (1-3) Al Hydroxide/Mg Hydroxide (Magnesium Hydrox/Alum Hydrox 30 Ml Oral.Susp) 30 ml PO Q6H PRN PRN Reason: Heartburn/Nausea Benztropine Mesylate (Benztropine Mesylate 0.5 Mg Tablet) 0.5 mg PO BID [facility] Last Admin: 02/27/22 08:32 Dose: 0.5 mg Diphenhydramine HCl (Diphenhydramine Hcl 12.5 Mg/5 Ml Liquid) 50 mg PO BEDTIME PRN PRN Reason: insomnia Last Admin: 02/25/22 19:50 Dose: 50 mg Hydroxyzine HCl (Hydroxyzine Hcl 25 Mg Tablet) 25 mg PO Q6H PRN PRN Reason: Anxiety Last Admin: 02/03/22 21:43 Dose: 25 mg Magnesium Hydroxide (Milk Of Magnesia 30 Ml Oral.Susp) 30 ml PO DAILY PRN PRN Reason: Constipation Olanzapine (Olanzapine Odt 10 Mg Tab.Rapdis) 10 mg TRANSLINGU Q8H PRN PRN Reason: psychotic agitation Olanzapine (Olanzapine 10 Mg Tablet) 10 mg PO BID [facility] Last Admin: 02/27/22 08:32 Dose: 10 mg Olanzapine (Olanzapine 10 Mg Vial) 10 mg IM BID PRN PRN Reason: if pt refuses po zyprexamiriam Trazodone HCl (Trazodone Hcl 50 Mg Tablet) 50 mg PO BEDTIME PRN PRN Reason: Insomnia Allergies Allergies Allergy/AdvReac Type Severity Reaction Status Date / Time haloperidol [From Haldol] AdvReac Mild AGITATION Verified 01/31/22 16:01 From Inderal Allergy Intermediate IRREGULAR Uncoded 03/21/20 16:26 HEARTBEAT Haldol Allergy Unknown Agitated Uncoded 01/31/22 16:01 Propanolol Allergy Unknown Unknown Uncoded 01/31/22 16:01 Assessment & Plan Assessment & Plan (1) Schizoaffective disorder: Qualifiers: Schizoaffective disorder type: unspecified Qualified Code(s): F25.9 - Schizoaffective disorder, unspecified Status: Acute Code(s): F25.9 - Schizoaffective disorder, unspecified Assessment and Plan: 61 yo female, history of schizoaffective disorder, bipolar type. Pt found incoherent in [facility] with confusion, lability of mood, delusional content. Assisted to hospital with police. Today, labile, angry and significantly abusive on the unit with agitation, pacing, swearing, threatening, disrobing and confusion. Bharat's guardianship in place. Section 12B in place to 02/05. Plan: Pt has refused all diagnostics. Continue current regime, which follows Bharat's order. Pt asks for sleep medication, declines Trazodone. Ativan 1 mg HS prn insomnia Probable section 7/ Collateral contacts. 02/04/22 Bharat's guardianship clarified. Latuda 40 mg daily. If pt refuses Olanzapine 10 mg IM Will file Section VII on 02/05. Attempt alliance building-currently pt is violent, psychotic, labile 02/06/22 Support pt in the milieu Educate regarding behaviors which place her at risk in community Section 7, court 02/12/22. 02/07/22: No med changes, pt declines to engage 02/11/22: [place] building attempts 02/12/22: Continue current regime. 02/13/22: Court 02/26/22. Continue current regime. 02/14 no changes to current regimen 02/15 no changes to current regimen 02/16/[address] 02/26/22 02/17/22 Pt isolated cont tx plan remains withdrawn not engaged . 02/19/22 Continue current plan 02/20/22 Increase Olanzapine to 7.5 mg bid 02/21 continue current tx plan 02/22 continue current tx plan 02/23 Pt tolerated a brief discussion of her thoughts regarding her court date and treatment planning before dismissing tw. Will continue this discussion on 02/24. 02/24/22 Decl[address] discussion of upcoming court date. Requested continuation so we can continue to attempt to work with pt-Court date rescheduled for 03/12/22. 02/26/22 Discontinue Latuda Olanzapine 10 mg bid Will begin to address pt's verbalized concerns she identified today. 02/27/22 Continue current plan I spent minutes with the patient and/or on the patient floor today, greater than?50% of which was spent counseling/coordinating care. Patient educated on: therapeutic strategies Informed Consent: further education needed Reason for contiued inpatient stay Substantial Risk for: rapid decompensation
[2022-02-27] MEDS: Acetaminophen 325 MG TABLET 650 MG PO (21:42)
[2022-02-27] MEDS: traZODone HCL 50 MG TABLET PO (21:43)
[2022-02-28] MEDS: Benztropine Mesylate 0.5 MG TABLET PO ×2 (08:46→19:50)
[2022-02-28] MEDS: OLANZapine 10 MG TABLET PO ×2 (08:46→19:51)
[2022-02-28 08:49] VITALS: BP 112/77; PULSE 106; RESP 18; TEMP 36.3; O2SAT 97
[2022-02-28 18:00] VITALS: BP 132/82; PULSE 79; RESP 16; TEMP 36.8; O2SAT 99
[2022-02-28] MEDS: Acetaminophen 325 MG TABLET 650 MG PO (19:50)
--- NOTE | 2022-02-28 20:34 | P.PNPSI_ITS ---
Subjective Subjective Date of Service: 02/28/22 Reason For Visit: Schizoaffective disorder-Bipolar type Subjective Notes: Conditional Voluntary Healthcare Proxy: No Guardianship: No Medical Problems Affecting Mental Status: No Interim History: Engaged in milieu briefly. Approachable, talkative and attending group today. 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 Medication Compliance: Yes Side effects from medications: No Attending Groups: Yes Review of Systems Acute medical concerns: No Medical Review of Systems: unchanged Mental Status Exam Mental Status Exam Patient Appearance: Appropriate Patient Orientation: Person, Place, Time and Situation Level of Consciousness: Alert Patient Behavior: Talkative and Good Eye Contact Mood Description: Appropriate Affect Description: Appropriate Patient Cognition Impaired: No Ability to Follow Directions: Good Speech Pattern: Spontaneous Speech Memory Description: Episodic Impaired Hallucinations: None Delusions: Not Present Perceptual Disturbances: Depersonalization and Derealization Thought Process: Goal Oriented Thought Content: positive for Goal Oriented Judgement: Fair Diagnostics Vital Signs (24Hr): Vital Signs - 24 hr 02/28/22 08:49 Temperature 97.4 F Pulse Rate 106 H Respiratory Rate 18 Blood Pressure 112/77 Pulse Oximetry 97 Oxygen Delivery Method Room Air BMI result Body Mass Index 29.1 Labs Results: 01/31/22 16:10 01/31/22 16:10 Medications Medications Current Medications Acetaminophen (Acetaminophen 325 Mg Tablet) 650 mg PO Q6H PRN PRN Reason: Headache/Pain Mild Scale (1-3) Last Admin: 02/28/22 19:50 Dose: 650 mg Al Hydroxide/Mg Hydroxide (Magnesium Hydrox/Alum Hydrox 30 Ml Oral.Susp) 30 ml PO Q6H PRN PRN Reason: Heartburn/Nausea Benztropine Mesylate (Benztropine Mesylate 0.5 Mg Tablet) 0.5 mg PO BID [facility] Last Admin: 02/28/22 19:50 Dose: 0.5 mg Diphenhydramine HCl (Diphenhydramine Hcl 12.5 Mg/5 Ml Liquid) 50 mg PO BEDTIME PRN PRN Reason: insomnia Last Admin: 02/25/22 19:50 Dose: 50 mg Hydroxyzine HCl (Hydroxyzine Hcl 25 Mg Tablet) 25 mg PO Q6H PRN PRN Reason: Anxiety Last Admin: 02/03/22 21:43 Dose: 25 mg Magnesium Hydroxide (Milk Of Magnesia 30 Ml Oral.Susp) 30 ml PO DAILY PRN PRN Reason: Constipation Olanzapine (Olanzapine Odt 10 Mg Tab.Rapdis) 10 mg TRANSLINGU Q8H PRN PRN Reason: psychotic agitation Olanzapine (Olanzapine 10 Mg Tablet) 10 mg PO BID [facility] Last Admin: 02/28/22 19:51 Dose: 10 mg Olanzapine (Olanzapine 10 Mg Vial) 10 mg IM BID PRN PRN Reason: if pt refuses po zyprexa-bharat Trazodone HCl (Trazodone Hcl 50 Mg Tablet) 50 mg PO BEDTIME PRN PRN Reason: Insomnia Last Admin: 02/27/22 21:43 Dose: 50 mg Allergies Allergies Allergy/AdvReac Type Severity Reaction Status Date / Time haloperidol [From Haldol] AdvReac Mild AGITATION Verified 01/31/22 16:01 From Inderal Allergy Intermediate IRREGULAR Uncoded 03/21/20 16:26 HEARTBEAT Haldol Allergy Unknown Agitated Uncoded 01/31/22 16:01 Propanolol Allergy Unknown Unknown Uncoded 01/31/22 16:01 Assessment & Plan Assessment & Plan (1) Schizoaffective disorder: Qualifiers: Schizoaffective disorder type: unspecified Qualified Code(s): F25.9 - Schizoaffective disorder, unspecified Status: Acute Code(s): F25.9 - Schizoaffective disorder, unspecified Assessment and Plan: 61 yo female, history of schizoaffective disorder, bipolar type. Pt found inc oherent in [facility] with confusion, lability of mood, delusional content. Assisted to hospital with police. Today, labile, angry and significantly abusive on the unit with agitation, pacing, swearing, threatening, disrobing and confusion. Bharat's guardianship in place. Section 12B in place to 02/05. Plan: Pt has refused all diagnostics. Continue current regime, which follows Bharat's order. Pt asks for sleep medication, declines Trazodone. Ativan 1 mg HS prn insomnia Probable section 7/ Collateral contacts. 02/04/22 Bharat's guardianship clarified. Latuda 40 mg daily. If pt refuses Olanzapine 10 mg IM Will file Section VII on 02/05. Attempt alliance building-currently pt is violent, psychotic, labile 02/06/22 Support pt in the milieu Educate regarding behaviors which place her at risk in community Section 7, court 02/12/22. 02/07/22: No med changes, pt declines to engage 02/11/22: [place] building attempts 02/12/22: Continue current regime. 02/13/22: Court 02/26/22. Continue current regime. 02/14 no changes to current regimen 02/15 no changes to current regimen 02/16/[address] 02/26/22 02/17/22 Pt isolated cont tx plan remains withdrawn not engaged . 02/19/22 Continue current plan 02/20/22 Increase Olanzapine to 7.5 mg bid 02/21 continue current tx plan 02/22 continue current tx plan 02/23 Pt tolerated a brief discussion of her thoughts regarding her court date and treatment planning before dismissing tw. Will continue this discussion on 02/24. 02/24/22 [address] discussion of upcoming court date. Requested continuation so we can continue to attempt to work with pt-Court date rescheduled for 03/12/22. 02/26/22 Discontinue Latuda Olanzapine 10 mg bid Will begin to address pt's verbalized concerns she identified today. 02/28/22 Continue plan of care I spent minutes with the patient and/or on the patient floor today, greater than?50% of which was spent counseling/coordinating care. Patient educated on: therapeutic strategies Informed Consent: further education needed Reason for contiued inpatient stay Substantial Risk for: harm to self, harm to others, inability to function and rapid decompensation
[2022-03-01] MEDS: hydrOXYzine HCL 25 MG TABLET PO (03:58)
[2022-03-01 08:45] VITALS: BP 129/82; PULSE 82; RESP 16; TEMP 36.4; O2SAT 98
[2022-03-01] MEDS: Benztropine Mesylate 0.5 MG TABLET PO ×2 (08:57→20:41)
[2022-03-01] MEDS: OLANZapine 10 MG TABLET PO ×2 (08:57→20:41)
[2022-03-01 18:00] VITALS: BP 124/68; PULSE 99; RESP 16; TEMP 36.6; O2SAT 97
[2022-03-01] MEDS: traZODone HCL 50 MG TABLET PO (20:41)
--- NOTE | 2022-03-01 20:44 | HO.PSYCHPN ---
Subjective Subjective Date of Service: 03/01/22 Reason For Visit: Schizoaffective disorder-Bipolar type Subjective Notes: Section 7 Healthcare Proxy: No Guardianship: Yes Medical Problems Affecting Mental Status: No Interim History: I have been so hateful to Joann I need to see her tomorrow and remedy this Will she ever forgive me? I was really terribly hateful, what must she think of me.? Reflecting upon the sx of her illness. Discussed that everyone told her I was a high functioning schizophrenic Discussed that being too much pressure, because I am supposed to be OK all of the time and I am just not. Discussion. Medication Compliance: Yes Side effects from medications: No Attending Groups: Intermittent Review of Systems Acute medical concerns: No Medical Review of Systems: unchanged Mental Status Exam Mental Status Exam Patient Appearance: Appropriate Patient Orientation: Person, Place, Time and Situation Level of Consciousness: Alert Patient Behavior: Talkative and Good Eye Contact Mood Description: Appropriate Affect Description: Appropriate Patient Cognition Impaired: No Ability to Follow Directions: Good Speech Pattern: Spontaneous Speech Memory Description: Episodic Impaired Hallucinations: None Delusions: Not Present Perceptual Disturbances: Depersonalization and Derealization Thought Process: Goal Oriented Thought Content: positive for Goal Oriented Judgement: Fair Diagnostics Vital Signs (24Hr): Vital Signs - 24 hr 03/01/22 08:45 Temperature 97.5 F Pulse Rate 82 Respiratory Rate 16 Blood Pressure 129/82 Pulse Oximetry 98 Oxygen Delivery Method Room Air BMI result Body Mass Index 29.1 Labs Results: 01/31/22 16:10 01/31/22 16:10 Medications Medications Current Medications Acetaminophen (Acetaminophen 325 Mg Tablet) 650 mg PO Q6H PRN PRN Reason: Headache/Pain Mild Scale (1-3) Last Admin: 02/28/22 19:50 Dose: 650 mg Al Hydroxide/Mg Hydroxide (Magnesium Hydrox/Alum Hydrox 30 Ml Oral.Susp) 30 ml PO Q6H PRN PRN Reason: Heartburn/Nausea Benztropine Mesylate (Benztropine Mesylate 0.5 Mg Tablet) 0.5 mg PO BID [facility] Last Admin: 03/01/22 20:41 Dose: 0.5 mg Diphenhydramine HCl (Diphenhydramine Hcl 12.5 Mg/5 Ml Liquid) 50 mg PO BEDTIME PRN PRN Reason: insomnia Last Admin: 02/25/22 19:50 Dose: 50 mg Hydroxyzine HCl (Hydroxyzine Hcl 25 Mg Tablet) 25 mg PO Q6H PRN PRN Reason: Anxiety Last Admin: 03/01/22 03:58 Dose: 25 mg Magnesium Hydroxide (Milk Of Magnesia 30 Ml Oral.Susp) 30 ml PO DAILY PRN PRN Reason: Constipation Olanzapine (Olanzapine Odt 10 Mg Tab.Rapdis) 10 mg TRANSLINGU Q8H PRN PRN Reason: psychotic agitation Olanzapine (Olanzapine 10 Mg Tablet) 10 mg PO BID [facility] Last Admin: 03/01/22 20:41 Dose: 10 mg Olanzapine (Olanzapine 10 Mg Vial) 10 mg IM BID PRN PRN Reason: if pt refuses po zyprexa-alessia Trazodone HCl (Trazodone Hcl 50 Mg Tablet) 50 mg PO BEDTIME PRN PRN Reason: Insomnia Last Admin: 03/01/22 20:41 Dose: 50 mg Allergies Allergies Allergy/AdvReac Type Severity Reaction Status Date / Time haloperidol [From Haldol] AdvReac Mild AGITATION Verified 01/31/22 16:01 From Inderal Allergy Intermediate IRREGULAR Uncoded 03/21/20 16:26 HEARTBEAT Haldol Allergy Unknown Agitated Uncoded 01/31/22 16:01 Propanolol Allergy Unknown Unknown Uncoded 01/31/22 16:01 Assessment & Plan Assessment & Plan (1) Schizoaffective disorder: Qualifiers: Schizoaffective disorder type: unspecified Qualified Code(s): F25.9 - Schizoaffective disorder, unspecified Status: Acute Code(s): F25.9 - Schizoaffective disorder, unspecified Assessment and Plan: 61 yo female, history of schizoaffective disorder, bipolar type. Pt found incoherent in [facility] with confusion, lability of mood, delusional content. Assisted to hospital with police. Today, labile, angry and significantly abusive on the unit with agitation, pacing, swearing, threatening, disrobing and confusion. Alessia's guardianship in place. Section 12B in place to 02/05. Plan: Pt has refused all diagnostics. Continue current regime, which follows Alessia's order. Pt asks for sleep medication, declines Trazodone. Ativan 1 mg HS prn insomnia Probable section 7/8 Collateral contacts. 02/04/22 Alessia's guardianship clarified. Latuda 40 mg daily. If pt refuses Olanzapine 10 mg IM Will file Section VII on 02/05. Attempt alliance building-currently pt is violent, psychotic, labile 02/06/22 Support pt in the milieu Educate regarding behaviors which place her at risk in community Section 7, court 02/12/22. 02/07/22: No med changes, pt declines to engage 02/11/22: [place] building attempts 02/12/22: Continue current regime. 02/13/22: Court 02/26/22. Continue current regime. 02/14 no changes to current regimen 02/15 no changes to current regimen 02/16/[address] 02/26/22 02/17/22 Pt isolated cont tx plan remains withdrawn not engaged . 02/19/22 Continue current plan 02/20/22 Increase Olanzapine to 7.5 mg bid 02/21 continue current tx plan 02/22 continue current tx plan 02/23 Pt tolerated a brief discussion of her thoughts regarding her court date and treatment planning before dismissing tw. Will continue this discussion on 02/24. 02/24/[address] of upcoming court date. Requested continuation so we can continue to attempt to work with pt-Court date rescheduled for 03/12/22. 02/26/22 Discontinue Latuda Olanzapine 10 mg bid Will begin to address pt's verbalized concerns she identified today. 03/01/22 Improving. Continue current plan I spent minutes with the patient and/or on the patient floor today, greater than?50% of which was spent counseling/coordinating care. Patient educated on: therapeutic strategies Informed Consent: understands and further education needed Reason for contiued inpatient stay Substantial Risk for: rapid decompensation
[2022-03-01] MEDS: Acetaminophen 325 MG TABLET 650 MG PO (21:34)
[2022-03-02] MEDS: Benztropine Mesylate 0.5 MG TABLET PO ×2 (08:34→20:45)
[2022-03-02] MEDS: OLANZapine 10 MG TABLET PO ×2 (08:34→20:45)
[2022-03-02 09:00] VITALS: BP 107/64; PULSE 109; RESP 18; TEMP 36.3; O2SAT 96
[2022-03-02] MEDS: hydrOXYzine HCL 25 MG TABLET PO (12:17)
--- NOTE | 2022-03-02 17:00 | HO.PSYCHPN ---
Subjective Subjective Date of Service: 03/02/22 Reason For Visit: Schizoaffective disorder-Bipolar type Subjective Notes: Section 7 Healthcare Proxy: No Guardianship: No Medical Problems Affecting Mental Status: No Interim History: Team reports pt reports decrease in sleep, decrease voices and difficulty in information retention. When approached by tw pt reports, yes, but we just started the Olanzapine, lets wait. Improved communication with team and participation in her care and treatment. Medication Compliance: Yes Side effects from medications: No Attending Groups: Intermittent Review of Systems Acute medical concerns: No Medical Review of Systems: unchanged Mental Status Exam Mental Status Exam Patient Appearance: Appropriate Patient Orientation: Person, Place, Time and Situation Level of Consciousness: Alert Patient Behavior: Talkative and Good Eye Contact Mood Description: Appropriate Affect Description: Appropriate Patient Cognition Impaired: No Ability to Follow Directions: Good Speech Pattern: Spontaneous Speech Memory Description: Episodic Impaired Hallucinations: None Delusions: Not Present Perceptual Disturbances: Depersonalization and Derealization Thought Process: Goal Oriented Thought Content: positive for Goal Oriented Judgement: Fair Diagnostics Vital Signs (24Hr): Vital Signs - 24 hr 03/01/22 18:00 03/02/22 09:00 Temperature 97.8 F 97.4 F Pulse Rate 99 109 H Respiratory Rate 16 18 Blood Pressure 124/68 107/64 Pulse Oximetry 97 96 Oxygen Delivery Method Room Air Room Air BMI result Body Mass Index 29.1 Labs Results: 01/31/22 16:10 01/31/22 16:10 Medications Medications Current Medications Acetaminophen (Acetaminophen 325 Mg Tablet) 650 mg PO Q6H PRN PRN Reason: Headache/Pain Mild Scale (1-3) Last Admin: 03/01/22 21:34 Dose: 650 mg Al Hydroxide/Mg Hydroxide (Magnesium Hydrox/Alum Hydrox 30 Ml Oral.Susp) 30 ml PO Q6H PRN PRN Reason: Heartburn/Nausea Benztropine Mesylate (Benztropine Mesylate 0.5 Mg Tablet) 0.5 mg PO BID ANNA Last Admin: 03/02/22 08:34 Dose: 0.5 mg Diphenhydramine HCl (Diphenhydramine Hcl 12.5 Mg/5 Ml Liquid) 50 mg PO BEDTIME PRN PRN Reason: insomnia Last Admin: 02/25/22 19:50 Dose: 50 mg Hydroxyzine HCl (Hydroxyzine Hcl 25 Mg Tablet) 25 mg PO Q6H PRN PRN Reason: Anxiety Last Admin: 03/02/22 12:17 Dose: 25 mg Magnesium Hydroxide (Milk Of Magnesia 30 Ml Oral.Susp) 30 ml PO DAILY PRN PRN Reason: Constipation Olanzapine (Olanzapine Odt 10 Mg Tab.Rapdis) 10 mg TRANSLINGU Q8H PRN PRN Reason: psychotic agitation Olanzapine (Olanzapine 10 Mg Tablet) 10 mg PO BID ANNA Last Admin: 03/02/22 08:34 Dose: 10 mg Olanzapine (Olanzapine 10 Mg Vial) 10 mg IM BID PRN PRN Reason: if pt refuses po zyprexa-bharat Trazodone HCl (Trazodone Hcl 50 Mg Tablet) 50 mg PO BEDTIME PRN PRN Reason: Insomnia Last Admin: 03/01/22 20:41 Dose: 50 mg Allergies Allergies Allergy/AdvReac Type Severity Reaction Status Date / Time haloperidol [From Haldol] AdvReac Mild AGITATION Verified 01/31/22 16:01 From Inderal Allergy Intermediate IRREGULAR Uncoded 03/21/20 16:26 HEARTBEAT Haldol Allergy Unknown Agitated Uncoded 01/31/22 16:01 Propanolol Allergy Unknown Unknown Uncoded 01/31/22 16:01 Assessment & Plan Assessment & Plan (1) Schizoaffective disorder: Qualifiers: Schizoaffective disorder type: unspecified Qualified Code(s): F25.9 - Schizoaffective disorder, unspecified Status: Acute Code(s): F25.9 - Schizoaffective disorder, unspecified Assessment and Plan: 61 yo female, history of schizoaffective disorder, bipolar type. Pt found incoherent in [facility] with confusion, lability of mood, delusional content. Assisted to hospital with police. Today, labile, angry and significantly abusive on the unit with agitation, pacing, swearing, threatening, disrobing and confusion. Bharat's guardianship in place. Section 12[address] in place to 02/05. Plan: Pt has refused all diagnostics. Continue current regime, which follows Bharat's order. Pt asks for sleep medication, declines Trazodone. Ativan 1 mg HS prn insomnia Probable section 7/ Collateral contacts. 02/04/22 Bharat's guardianship clarified. Latuda 40 mg daily. If pt refuses Olanzapine 10 mg IM Will file Section VII on 02/05. Attempt alliance building-currently pt is violent, psychotic, labile 02/06/22 Support pt in the milieu Educate regarding behaviors which place her at risk in community Section 7, court 02/12/22. 02/07/22: No med changes, pt declines to engage 02/11/22: [place] building attempts 02/12/22: Continue current regime. 02/13/22: Court 02/26/22. Continue current regime. 02/14 no changes to current regimen 02/15 no changes to current regimen 02/16/[address] 02/26/22 02/17/22 Pt isolated cont tx plan remains withdrawn not engaged . 02/19/22 Continue current plan 02/20/22 Increase Olanzapine to 7.5 mg bid 02/21 continue current tx plan 02/22 continue current tx plan 02/23 Pt tolerated a brief discussion of her thoughts regarding her court date and treatment planning before dismissing tw. Will continue this discussion on 02/24. 02/24/22 [address] discussion of upcoming court date. Requested continuation so we can continue to attempt to work with pt-Court date rescheduled for 03/12/22. 02/26/22 Discontinue Latuda Olanzapine 10 mg bid Will begin to address pt's verbalized concerns she identified today. 03/01/22 Improving. Continue current plan 03/02/22 Improved communication so interventions may be targeted. Continue current regime. I spent minutes with the patient and/or on the patient floor today, greater than?50% of which was spent counseling/coordinating care. Patient educated on: therapeutic strategies Informed Consent: further education needed Reason for contiued inpatient stay Substantial Risk for: harm to self, harm to others, inability to function, rapid decompensation and med/psych decompensation
[2022-03-02] MEDS: Acetaminophen 325 MG TABLET 650 MG PO (23:13)
[2022-03-02] MEDS: traZODone HCL 50 MG TABLET PO (23:13)
[2022-03-03 06:00] VITALS: BP 132/82; PULSE 102; RESP 16; TEMP 36.6; O2SAT 98
[2022-03-03] MEDS: OLANZapine 10 MG TABLET PO ×2 (08:45→20:19)
[2022-03-03] MEDS: Benztropine Mesylate 0.5 MG TABLET PO ×2 (08:45→20:19)
[2022-03-03 18:00] VITALS: BP 114/68; PULSE 98; TEMP 36.8; O2SAT 98
--- NOTE | 2022-03-03 18:41 | P.PNPSI_ITS ---
Subjective Subjective Date of Service: 03/03/22 Reason For Visit: Schizoaffective disorder-Bipolar type Subjective Notes: Section 7 Healthcare Proxy: No Guardianship: Yes Medical Problems Affecting Mental Status: No Interim History: Reports being anxious-reflects upon her life- I think I really have messed things up . I never really was interested in treatment and I think now that may have been an error. Still considering antidepressant/mood stabilizer augmentation. Medication Compliance: Yes Side effects from medications: No Attending Groups: Intermittent Review of Systems Acute medical concerns: No Medical Review of Systems: unchanged Mental Status Exam Mental Status Exam Patient Appearance: Appropriate Patient Orientation: Person, Place, Time and Situation Level of Consciousness: Alert Patient Behavior: Talkative and Good Eye Contact Mood Description: Appropriate Affect Description: Appropriate Patient Cognition Impaired: No Ability to Follow Directions: Good Speech Pattern: Spontaneous Speech Memory Description: Episodic Impaired Hallucinations: None Delusions: Not Present Perceptual Disturbances: Depersonalization and Derealization Thought Process: Goal Oriented Thought Content: positive for Goal Oriented Judgement: Fair Diagnostics Vital Signs (24Hr): Vital Signs - 24 hr 03/03/22 06:00 Temperature 97.8 F Pulse Rate 102 H Respiratory Rate 16 Blood Pressure 132/82 Pulse Oximetry 98 BMI result Body Mass Index 29.1 Labs Results: 01/31/22 16:10 01/31/22 16:10 Medications Medications Current Medications Acetaminophen (Acetaminophen 325 Mg Tablet) 650 mg PO Q6H PRN PRN Reason: Headache/Pain Mild Scale (1-3) Last Admin: 03/02/22 23:13 Dose: 325 mg Al Hydroxide/Mg Hydroxide (Magnesium Hydrox/Alum Hydrox 30 Ml Oral.Susp) 30 ml PO Q6H PRN PRN Reason: Heartburn/Nausea Benztropine Mesylate (Benztropine Mesylate 0.5 Mg Tablet) 0.5 mg PO BID ANNA Last Admin: 03/03/22 08:45 Dose: 0.5 mg Diphenhydramine HCl (Diphenhydramine Hcl 12.5 Mg/5 Ml Liquid) 50 mg PO BEDTIME PRN PRN Reason: insomnia Last Admin: 02/25/22 19:50 Dose: 50 mg Hydroxyzine HCl (Hydroxyzine Hcl 25 Mg Tablet) 25 mg PO Q6H PRN PRN Reason: Anxiety Last Admin: 03/02/22 12:17 Dose: 25 mg Magnesium Hydroxide (Milk Of Magnesia 30 Ml Oral.Susp) 30 ml PO DAILY PRN PRN Reason: Constipation Olanzapine (Olanzapine Odt 10 Mg Tab.Rapdis) 10 mg TRANSLINGU Q8H PRN PRN Reason: psychotic agitation Olanzapine (Olanzapine 10 Mg Tablet) 10 mg PO BID ANNA Last Admin: 03/03/22 08:45 Dose: 10 mg Olanzapine (Olanzapine 10 Mg Vial) 10 mg IM BID PRN PRN Reason: if pt refuses po zyprexa-bharat Trazodone HCl (Trazodone Hcl 50 Mg Tablet) 50 mg PO BEDTIME PRN PRN Reason: Insomnia Last Admin: 03/02/22 23:13 Dose: 50 mg Allergies Allergies Allergy/AdvReac Type Severity Reaction Status Date / Time haloperidol [From Haldol] AdvReac Mild AGITATION Verified 01/31/22 16:01 From Inderal Allergy Intermediate IRREGULAR Uncoded 03/21/20 16:26 HEARTBEAT Haldol Allergy Unknown Agitated Uncoded 01/31/22 16:01 Propanolol Allergy Unknown Unknown Uncoded 01/31/22 16:01 Assessment & Plan Assessment & Plan (1) Schizoaffective disorder: Qualifiers: Schizoaffective disorder type: unspecified Qualified Code(s): F25.9 - Schizoaffective disorder, unspecified Status: Acute Code(s): F25.9 - Schizoaffective disorder, unspecified Assessment and Plan: 61 yo female, history of schizoaffective disorder, bipolar type. Pt found incoherent in [facility] with confusion, lability of mood, delusional content. Assisted to hospital with police. Today, labile, angry and significantly abusive on the unit with agitation, pacing, swearing, threatening, disrobing and confusion. Bharat's guardianship in place. Section [address] in place to 02/05. Plan: Pt has refused all diagnostics. Continue current regime, which follows Bharat's order. Pt asks for sleep medication, declines Trazodone. Ativan 1 mg HS prn insomnia Probable section 01/09 Collateral contacts. 02/04/22 Bharat's guardianship clarified. Latuda 40 mg daily. If pt refuses Olanzapine 10 mg IM Will file Section VII on 02/05. Attempt alliance building-currently pt is violent, psychotic, labile 02/06/22 Support pt in the milieu Educate regarding behaviors which place her at risk in community Section 7, court 02/12/22. 02/07/22: No med changes, pt declines to engage 02/11/22: [place] building attempts 02/12/22: Continue current regime. 02/13/22: Court 02/26/22. Continue current regime. 02/14 no changes to current regimen 02/15 no changes to current regimen 02/16/[address] 02/26/22 02/17/22 Pt isolated cont tx plan remains withdrawn not engaged . 02/19/22 Continue current plan 02/20/22 Increase Olanzapine to 7.5 mg bid 02/21 continue current tx plan 02/22 continue current tx plan 02/23 Pt tolerated a brief discussion of her thoughts regarding her court date and treatment planning before dismissing tw. Will continue this discussion on 02/24. 02/24/22 Declines discussion of upcoming court date. Requested continuation so we can continue to attempt to work with pt-Court date rescheduled for 03/12/22. 02/26/22 Discontinue Latuda Olanzapine 10 mg bid Will begin to address pt's verbalized concerns she identified today. 03/01/22 Improving. Continue current plan 03/03/22 Pt requests no changes today as she continues to consider antidepressant/mood stabilizer trials. I spent minutes with the patient and/or on the patient floor today, greater than?50% of which was spent counseling/coordinating care. Patient educated on: medication risk/benefits and therapeutic strategies Informed Consent: understands and further education needed Reason for contiued inpatient stay Substantial Risk for: harm to self, inability to function, rapid decompensation and med/psych decompensation
[2022-03-04] MEDS: OLANZapine 10 MG TABLET PO ×2 (08:51→20:56)
[2022-03-04] MEDS: Benztropine Mesylate 0.5 MG TABLET PO ×2 (08:51→20:56)
[2022-03-04 18:00] VITALS: BP 118/72; PULSE 84; RESP 18; TEMP 36.4; O2SAT 98
--- NOTE | 2022-03-04 19:20 | P.PNPSI_ITS ---
Subjective Subjective Date of Service: 03/04/22 Reason For Visit: Schizoaffective disorder-Bipolar type Subjective Notes: Section 7 Healthcare Proxy: No Guardianship: Yes Medical Problems Affecting Mental Status: No Interim History: All right, lets try something. Discussed options for depressive rx. Decided to do Lamictal trial. Will begin 25 mg bid on 03/05. Discussed risk of prompting jones. Pt does not recall using Lamictal in the past and is agreeable. Review of Claudia with pt regarding this agent. Medication Compliance: Yes Side effects from medications: No Attending Groups: Intermittent Review of Systems Acute medical concerns: No Medical Review of Systems: unchanged Mental Status Exam Mental Status Exam Patient Appearance: Appropriate Patient Orientation: Person, Place, Time and Situation Level of Consciousness: Alert Patient Behavior: Talkative and Good Eye Contact Mood Description: Appropriate Affect Description: Appropriate Patient Cognition Impaired: No Ability to Follow Directions: Good Speech Pattern: Spontaneous Speech Memory Description: Episodic Impaired Hallucinations: None Delusions: Not Present Perceptual Disturbances: Depersonalization and Derealization Thought Process: Goal Oriented Thought Content: positive for Goal Oriented Judgement: Fair Diagnostics Vital Signs (24Hr): BMI result Body Mass Index 29.1 Labs Results: 01/31/22 16:10 01/31/22 16:10 Medications Medications Current Medications Acetaminophen (Acetaminophen 325 Mg Tablet) 650 mg PO Q6H PRN PRN Reason: Headache/Pain Mild Scale (1-3) Last Admin: 03/02/22 23:13 Dose: 325 mg Al Hydroxide/Mg Hydroxide (Magnesium Hydrox/Alum Hydrox 30 Ml Oral.Susp) 30 ml PO Q6H PRN PRN Reason: Heartburn/Nausea Benztropine Mesylate (Benztropine Mesylate 0.5 Mg Tablet) 0.5 mg PO BID ANNA Last Admin: 03/04/22 08:51 Dose: 0.5 mg Diphenhydramine HCl (Diphenhydramine Hcl 12.5 Mg/5 Ml Liquid) 50 mg PO BEDTIME PRN PRN Reason: insomnia Last Admin: 02/25/22 19:50 Dose: 50 mg Hydroxyzine HCl (Hydroxyzine Hcl 25 Mg Tablet) 25 mg PO Q6H PRN PRN Reason: Anxiety Last Admin: 03/02/22 12:17 Dose: 25 mg Magnesium Hydroxide (Milk Of Magnesia 30 Ml Oral.Susp) 30 ml PO DAILY PRN PRN Reason: Constipation Olanzapine (Olanzapine Odt 10 Mg Tab.Rapdis) 10 mg TRANSLINGU Q8H PRN PRN Reason: psychotic agitation Olanzapine (Olanzapine 10 Mg Tablet) 10 mg PO BID ANNA Last Admin: 03/04/22 08:51 Dose: 10 mg Olanzapine (Olanzapine 10 Mg Vial) 10 mg IM BID PRN PRN Reason: if pt refuses po zyprexa-bharat Trazodone HCl (Trazodone Hcl 50 Mg Tablet) 50 mg PO BEDTIME PRN PRN Reason: Insomnia Last Admin: 03/02/22 23:13 Dose: 50 mg Allergies Allergies Allergy/AdvReac Type Severity Reaction Status Date / Time haloperidol [From Haldol] AdvReac Mild AGITATION Verified 01/31/22 16:01 From Inderal Allergy Intermediate IRREGULAR Uncoded 03/21/20 16:26 HEARTBEAT Haldol Allergy Unknown Agitated Uncoded 01/31/22 16:01 Propanolol Allergy Unknown Unknown Uncoded 01/31/22 16:01 Assessment & Plan Assessment & Plan (1) Schizoaffective disorder: Qualifiers: Schizoaffective disorder type: unspecified Qualified Code(s): F25.9 - Schizoaffective disorder, unspecified Status: Acute Code(s): F25.9 - Schizoaffective disorder, unspecified Assessment and Plan: 61 yo female, history of schizoaffective disorder, bipolar type. Pt found incoherent in [facility] with confusion, lability of mood, delusional content. Assisted to hospital with police. Today, labile, angry and significantly abusive on the unit with agitation, pacing, swearing, threatening, disrobing and confusion. Bharat's guardianship in place. Section 12[address] in place to 02/05. Plan: Pt has refused all diagnostics. Continue current regime, which follows Bharat's order. Pt asks for sleep medication, declines Trazodone. Ativan 1 mg HS prn insomnia Probable section 7/8 Collateral contacts. 02/04/22 Bharat's guardianship clarified. Latuda 40 mg daily. If pt refuses Olanzapine 10 mg IM Will file Section VII on 02/05. Attempt alliance building-currently pt is violent, psychotic, labile 02/06/22 Support pt in the milieu Educate regarding behaviors which place her at risk in community Section 7, court 02/12/22. 02/07/22: No med changes, pt declines to engage 02/11/22: [place] building attempts 02/12/22: Continue current regime. 02/13/22: Court 02/26/22. Continue current regime. 02/14 no changes to current regimen 02/15 no changes to current regimen 02/16/[address] 02/26/22 02/17/22 Pt isolated cont tx plan remains withdrawn not engaged . 02/19/22 Continue current plan 02/20/22 Increase Olanzapine to 7.5 mg bid 02/21 continue current tx plan 02/22 continue current tx plan 02/23 Pt tolerated a brief discussion of her thoughts regarding her court date and treatment planning before dismissing tw. Will continue this discussion on 02/24. 02/24/22 [address] discussion of upcoming court date. Requested continuation so we can continue to attempt to work with pt-Court date rescheduled for 03/12/22. 02/26/22 Discontinue Latuda Olanzapine 10 mg bid Will begin to address pt's verbalized concerns she identified today. 03/01/22 Improving. Continue current plan 03/02/22 Improved communication so interventions may be targeted. Continue current regime. 03/04/22 Lamictal 25 mg bid to begin 03/05/22. I spent minutes with the patient and/or on the patient floor today, gre ater than?50% of which was spent counseling/coordinating care. Patient educated on: medication risk/benefits Informed Consent: understands Reason for contiued inpatient stay Substantial Risk for: harm to self, harm to others, inability to function, rapid decompensation and med/psych decompensation
[2022-03-05] MEDS: Acetaminophen 325 MG TABLET 650 MG PO ×2 (00:32→21:35)
[2022-03-05 06:00] VITALS: BP 118/60; PULSE 18; RESP 16; TEMP 36.7; O2SAT 98
[2022-03-05] MEDS: OLANZapine 10 MG TABLET PO ×2 (09:03→20:19)
[2022-03-05] MEDS: Benztropine Mesylate 0.5 MG TABLET PO ×2 (09:03→20:19)
[2022-03-05] MEDS: lamoTRIgine 25 MG TABLET PO (11:18)
--- NOTE | 2022-03-05 16:20 | HO.PSYCHPN ---
Subjective Subjective Date of Service: 03/06/22 Reason For Visit: Schizoaffective disorder-Bipolar type Subjective Notes: Section 7 Interim History: Reports she recalls she tried Lamictal in the past and would prefer a Depakote trial, which we changed. Interactive, making her needs known. Improved. Medication Compliance: Yes Side effects from medications: No Attending Groups: Yes Review of Systems Acute medical concerns: No Medical Review of Systems: unchanged Mental Status Exam Mental Status Exam Patient Appearance: Appropriate Patient Orientation: Person, Place, Time and Situation Level of Consciousness: Alert Patient Behavior: Talkative and Good Eye Contact Mood Description: Appropriate Affect Description: Appropriate Patient Cognition Impaired: No Ability to Follow Directions: Good Speech Pattern: Spontaneous Speech Memory Description: Episodic Impaired Hallucinations: None Delusions: Not Present Perceptual Disturbances: Depersonalization and Derealization Thought Process: Goal Oriented Thought Content: positive for Goal Oriented Judgement: Fair Diagnostics Vital Signs (24Hr): Vital Signs - 24 hr 03/04/22 18:00 03/05/22 06:00 Temperature 97.6 F 98.0 F Pulse Rate 84 18 L Respiratory Rate 18 16 Blood Pressure 118/72 118/60 Pulse Oximetry 98 98 Oxygen Delivery Method Room Air BMI result Body Mass Index 29.1 Labs Results: 01/31/22 16:10 01/31/22 16:10 Medications Medications Current Medications Acetaminophen (Acetaminophen 325 Mg Tablet) 650 mg PO Q6H PRN PRN Reason: Headache/Pain Mild Scale (1-3) Last Admin: 03/05/22 00:32 Dose: 650 mg Al Hydroxide/Mg Hydroxide (Magnesium Hydrox/Alum Hydrox 30 Ml Oral.Susp) 30 ml PO Q6H PRN PRN Reason: Heartburn/Nausea Benztropine Mesylate (Benztropine Mesylate 0.5 Mg Tablet) 0.5 mg PO BID ANNA Last Admin: 03/05/22 09:03 Dose: 0.5 mg Diphenhydramine HCl (Diphenhydramine Hcl 12.5 Mg/5 Ml Liquid) 50 mg PO BEDTIME PRN PRN Reason: insomnia Last Admin: 02/25/22 19:50 Dose: 50 mg Divalproex Sodium (Divalproex Sodium Er 250 Mg Tab.Er.24h) 250 mg PO BEDTIME ANNA Hydroxyzine HCl (Hydroxyzine Hcl 25 Mg Tablet) 25 mg PO Q6H PRN PRN Reason: Anxiety Last Admin: 03/02/22 12:17 Dose: 25 mg Magnesium Hydroxide (Milk Of Magnesia 30 Ml Oral.Susp) 30 ml PO DAILY PRN PRN Reason: Constipation Olanzapine (Olanzapine Odt 10 Mg Tab.Rapdis) 10 mg TRANSLINGU Q8H PRN PRN Reason: psychotic agitation Olanzapine (Olanzapine 10 Mg Tablet) 10 mg PO BID ANNA Last Admin: 03/05/22 09:03 Dose: 10 mg Olanzapine (Olanzapine 10 Mg Vial) 10 mg IM BID PRN PRN Reason: if pt refuses po zyprexa-bharat Trazodone HCl (Trazodone Hcl 50 Mg Tablet) 50 mg PO BEDTIME PRN PRN Reason: Insomnia Last Admin: 03/02/22 23:13 Dose: 50 mg Allergies Allergies Allergy/AdvReac Type Severity Reaction Status Date / Time haloperidol [From Haldol] AdvReac Mild AGITATION Verified 01/31/22 16:01 From Inderal Allergy Intermediate IRREGULAR Uncoded 03/21/20 16:26 HEARTBEAT Haldol Allergy Unknown Agitated Uncoded 01/31/22 16:01 Propanolol Allergy Unknown Unknown Uncoded 01/31/22 16:01 Assessment & Plan Assessment & Plan (1) Schizoaffective disorder: Qualifiers: Schizoaffective disorder type: unspecified Qualified Code(s): F25.9 - Schizoaffective disorder, unspecified Status: Acute Code(s): F25.9 - Schizoaffective disorder, unspecified Assessment and Plan: 61 yo female, history of schizoaffective disorder, bipolar type. Pt found incoherent in [facility] with confusion, lability of mood, delusional content. Assisted to hospital with police. Today, labile, angry and significantly abusive on the unit with agitation, pacing, swearing, threatening, disrobing and confusion. Bharat's guardianship in place. Section 12[address] in place to 02/05. Plan: Pt has refused all diagnostics. Continue current regime, which follows Bharat's order. Pt asks for sleep medication, declines Trazodone. Ativan 1 mg HS prn insomnia Probable section 01/09 Collateral contacts. 02/04/22 Bharat's guardianship clarified. Latuda 40 mg daily. If pt refuses Olanzapine 10 mg IM Will file Section VII on 02/05. Attempt alliance building-currently pt is violent, psychotic, labile 02/06/22 Support pt in the milieu Educate regarding behaviors which place her at risk in community Section 7, court 02/12/22. 02/07/22: No med changes, pt declines to engage 02/11/22: [place] building attempts 02/12/22: Continue current regime. 02/13/22: Court 02/26/22. Continue current regime. 02/14 no changes to current regimen 02/15 no changes to current regimen 02/16/[address] 02/26/22 02/17/22 Pt isolated cont tx plan remains withdrawn not engaged . 02/19/22 Continue current plan 02/20/22 Increase Olanzapine to 7.5 mg bid 02/21 continue current tx plan 02/22 continue current tx plan 02/23 Pt tolerated a brief discussion of her thoughts regarding her court date and treatment planning before dismissing tw. Will continue this discussion on 02/24. 02/24/22 [address] discussion of upcoming court date. Requested continuation so we can continue to attempt to work with pt-Court date rescheduled for 03/12/22. 02/26/22 Discontinue Latuda Olanzapine 10 mg bid Will begin to address pt's verbalized concerns she identified today. 03/01/22 Improving. Continue current plan 03/02/22 Improved communication so interventions may be targeted. Continue current regime. 03/05/22 Depakote ER 250 mg HS I spent minutes with the patient and/or on the patient floor today, greater than?50% of which was spent counseling/coordinating care. Patient educated on: medication risk/benefits and therapeutic strategies Informed Consent: understands and further education needed Reason for contiued inpatient stay Substantial Risk for: harm to self, harm to others, inability to function and med/psych decompensation
[2022-03-05 18:00] VITALS: BP 116/71; PULSE 97; RESP 16; TEMP 36.4; O2SAT 97
[2022-03-05] MEDS: Divalproex Sodium ER 250 MG TAB.ER.24H PO (20:19)
[2022-03-05] MEDS: traZODone HCL 50 MG TABLET PO (22:44)
[2022-03-05] MEDS: diphenhydrAMINE HCl 12.5 MG/5 ML LIQUID 50 MG PO (22:44)
[2022-03-06 06:00] VITALS: BP 143/85; PULSE 85; RESP 16; TEMP 37; O2SAT 98
[2022-03-06] MEDS: OLANZapine 10 MG TABLET PO ×2 (08:30→19:45)
[2022-03-06] MEDS: Benztropine Mesylate 0.5 MG TABLET PO ×2 (08:30→19:45)
--- NOTE | 2022-03-06 13:57 | HO.PSYCHPN ---
Subjective Subjective Date of Service: 03/06/22 Reason For Visit: Schizoaffective disorder-Bipolar type Subjective Notes: Section 7 Healthcare Proxy: No Guardianship: No Medical Problems Affecting Mental Status: No Interim History: Agreed to diagnostics. Tolerating Depakote C/O Right knee pain-requests immobilizer which was ordered. Declines ortho eval/xray at this time Asks for Ibuprofen. Medication Compliance: Yes Side effects from medications: No Attending Groups: Intermittent Review of Systems Acute medical concerns: No Medical Review of Systems: unchanged Mental Status Exam Mental Status Exam Patient Appearance: Appropriate Patient Orientation: Person, Place, Time and Situation Level of Consciousness: Alert Patient Behavior: Talkative and Good Eye Contact Mood Description: Appropriate Affect Description: Appropriate Patient Cognition Impaired: No Ability to Follow Directions: Good Speech Pattern: Spontaneous Speech Memory Description: Episodic Impaired Hallucinations: None Delusions: Not Present Perceptual Disturbances: Depersonalization and Derealization Thought Process: Goal Oriented Thought Content: positive for Goal Oriented Judgement: Fair Diagnostics Vital Signs (24Hr): Vital Signs - 24 hr 03/05/22 18:00 03/06/22 06:00 Temperature 97.5 F 98.6 F Pulse Rate 97 85 Respiratory Rate 16 16 Blood Pressure 116/71 143/85 H Pulse Oximetry 97 98 Oxygen Delivery Method Room Air Room Air BMI result Body Mass Index 29.1 Labs Results: 01/31/22 16:10 01/31/22 16:10 Medications Medications Current Medications Acetaminophen (Acetaminophen 325 Mg Tablet) 650 mg PO Q6H PRN PRN Reason: Headache/Pain Mild Scale (1-3) Last Admin: 03/05/22 21:35 Dose: 650 mg Al Hydroxide/Mg Hydroxide (Magnesium Hydrox/Alum Hydrox 30 Ml Oral.Susp) 30 ml PO Q6H PRN PRN Reason: Heartburn/Nausea Benztropine Mesylate (Benztropine Mesylate 0.5 Mg Tablet) 0.5 mg PO BID ANNA Last Admin: 03/06/22 08:30 Dose: 0.5 mg Diphenhydramine HCl (Diphenhydramine Hcl 12.5 Mg/5 Ml Liquid) 50 mg PO BEDTIME PRN PRN Reason: insomnia Last Admin: 03/05/22 22:44 Dose: 50 mg Divalproex Sodium (Divalproex Sodium Er 250 Mg Tab.Er.24h) 250 mg PO BEDTIME ANNA Last Admin: 03/05/22 20:19 Dose: 250 mg Hydroxyzine HCl (Hydroxyzine Hcl 25 Mg Tablet) 25 mg PO Q6H PRN PRN Reason: Anxiety Last Admin: 03/02/22 12:17 Dose: 25 mg Magnesium Hydroxide (Milk Of Magnesia 30 Ml Oral.Susp) 30 ml PO DAILY PRN PRN Reason: Constipation Olanzapine (Olanzapine Odt 10 Mg Tab.Rapdis) 10 mg TRANSLINGU Q8H PRN PRN Reason: psychotic agitation Olanzapine (Olanzapine 10 Mg Tablet) 10 mg PO BID ANNA Last Admin: 03/06/22 08:30 Dose: 10 mg Olanzapine (Olanzapine 10 Mg Vial) 10 mg IM BID PRN PRN Reason: if pt refuses po zyprexa-bharat Trazodone HCl (Trazodone Hcl 50 Mg Tablet) 50 mg PO BEDTIME PRN PRN Reason: Insomnia Last Admin: 03/05/22 22:44 Dose: 50 mg Allergies Allergies Allergy/AdvReac Type Severity Reaction Status Date / Time haloperidol [From Haldol] AdvReac Mild AGITATION Verified 01/31/22 16:01 From Inderal Allergy Intermediate IRREGULAR Uncoded 03/21/20 16:26 HEARTBEAT Haldol Allergy Unknown Agitated Uncoded 01/31/22 16:01 Propanolol Allergy Unknown Unknown Uncoded 01/31/22 16:01 Assessment & Plan Assessment & Plan (1) Schizoaffective disorder: Qualifiers: Schizoaffective disorder type: unspecified Qualified Code(s): F25.9 - Schizoaffective disorder, unspecified Status: Acute Code(s): F25.9 - Schizoaffective disorder, unspecified Assessment and Plan: 61 yo female, history of schizoaffective disorder, bipolar type. Pt found incoherent in [facility] with confusion, lability of mood, delusional content. Assisted to hospital with police. Today, labile, angry and significantly abusive on the unit with agitation, pacing, swearing, threatening, disrobing and confusion. Bharat's guardianship in place. Section [address] in place to 02/05. Plan: Pt has refused all diagnostics. Continue current regime, which follows Bharat's order. Pt asks for sleep medication, declines Trazodone. Ativan 1 mg HS prn insomnia Probable section 78 Collateral contacts. 02/04/22 Bharat's guardianship clarified. Latuda 40 mg daily. If pt refuses Olanzapine 10 mg IM Will file Section VII on 02/05. Attempt alliance building-currently pt is violent, psychotic, labile 02/06/22 Support pt in the milieu Educate regarding behaviors which place her at risk in community Section 7, court 02/12/22. 02/07/22: No med changes, pt declines to engage 02/11/22: [place] building attempts 02/12/22: Continue current regime. 02/13/22: Court 02/26/22. Continue current regime. 02/14 no changes to current regimen 02/15 no changes to current regimen 02/16/[address] 02/26/22 02/17/22 Pt isolated cont tx plan remains withdrawn not engaged . 02/19/22 Continue current plan 02/20/22 Increase Olanzapine to 7.5 mg bid 02/21 continue current tx plan 02/22 continue current tx plan 02/23 Pt tolerated a brief discussion of her thoughts regarding her court date and treatment planning before dismissing tw. Will continue this discussion on 02/24. 02/24/22 [address] discussion of upcoming court date. Requested continuation so we can continue to attempt to work with pt-Court date rescheduled for 03/12/22. 02/26/22 Discontinue Latuda Olanzapine 10 mg bid Will begin to address pt's verbalized concerns she identified today. 03/01/22 Improving. Continue current plan 03/02/22 Improved communication so interventions may be targeted. Continue current regime. 03/04/22 Lamictal 25 mg bid to begin 03/05/22. 03/06/22 Continue current regime. I spent minutes with the patient and/or on the patient floor today, greater than?50% of which was spent counseling/coordinating care. Patient educated on: medication risk/benefits and therapeutic strategies Informed Consent: further education needed Reason for contiued inpatient stay Substantial Risk for: harm to self, harm to others, inability to function, rapid decompensation and med/psych decompensation
[2022-03-06] MEDS: Acetaminophen 325 MG TABLET 650 MG PO (14:50)
[2022-03-06 16:16] VITALS: BP 118/69; PULSE 108; RESP 16; TEMP 37; O2SAT 97
[2022-03-06] MEDS: Divalproex Sodium ER 250 MG TAB.ER.24H PO (19:45)
[2022-03-07 06:00] VITALS: BP 120/74; PULSE 91; RESP 18; TEMP 36.8; O2SAT 97
[2022-03-07 07:44] LABS: MANUAL DIFF FLAG NO
[2022-03-07 07:46] LABS: Basophils Absolute Auto 0.1 X10*3/uL (0.0-0.2); Basophils Percent Auto 1.1 % (0-2); Eosinophils Absolute Auto 0.2 X10*3/uL (0.0-0.4); Eosinophils Percent Auto 2.6 % (0-4); Hematocrit 41.2 % (37.0-47.0); Hemoglobin 13.4 g/dl (12.0-16.0); Imm Gran Abs Auto 0.03 X10*3/uL (0.00-0.03); Imm Gran Pct Auto 0.5 % (0.0-0.4); Lymphocytes Absolute Auto 2.3 X10*3/uL (1.2-4.9); Lymphocytes Percent Auto 35.9 % (20-40); Mean Corpuscular HGB Conc 32.5 g/dl (31.0-35.0); Mean Corpuscular Hemoglobin 30.5 pg (27.0-33.0); Mean Corpuscular Volume 93.6 fL (80.0-98.0); Mean Platelet Volume 10.7 fL (9.4-12.3); Monocytes Absolute Auto 0.5 X10*3/uL (0.1-1.2); Monocytes Percent Auto 7.6 % (2-11); Neutrophils Absolute Auto 3.4 x10*3/uL (2.0-8.3); Neutrophils Percent Auto 52.3 % (45-73); Platelet Count 213 X10*3/uL (160-400); Red Cell Distribution Width 13.4 % (11.0-16.0); White Blood Count 6.5 X10*3/uL (4.8-10.8)
[2022-03-07 08:01] LABS: Estimated Average Glucose 120 mg/dL; Hemoglobin A1c % 5.8 %
[2022-03-07 08:14] LABS: Alanine Aminotransferase 15 U/L (0-31); Albumin Level 3.6 g/dL (3.5-5.0); Alkaline Phosphatase 74 U/L (39-117); Anion Gap 15 (12-20); Aspartate Amino Transferase 15 U/L (5-31); Bilirubin Total 0.3 mg/dL (0.0-1.0); Blood Urea Nitrogen 23 mg/dL (9-16); Calcium 9.1 mg/dL (8.4-10.2); Carbon Dioxide 27 mmol/L (22-29); Chloride 104 mmol/L (96-108); Cholesterol 252 mg/dL; Creatinine Clr Calc Pharmacy 82.4; Estimated Glomerular Filt Rate > 60; Glucose Random 97 mg/dL (60-115); HDL Cholesterol 48 mg/dL; LDL Cholesterol Calculated 165 mg/dl; Potassium 4.6 mmol/L (3.3-5.1); Sodium 141 mmol/L (135-145); Total Protein 6.3 g/dL (6.5-8.0); Triglycerides 197 mg/dL
[2022-03-07 08:35] LABS: Thyroid Stimulating Hormone 0.57 uIU/mL (0.32-4.0)
[2022-03-07] MEDS: OLANZapine 10 MG TABLET PO ×2 (09:09→21:32)
[2022-03-07] MEDS: Benztropine Mesylate 0.5 MG TABLET PO ×2 (09:09→21:33)
[2022-03-07 14:38] LABS: Vitamin B12 367 pg/mL (200-900)
--- NOTE | 2022-03-07 21:10 | HO.PSYCHPN ---
Subjective Subjective Date of Service: 03/07/22 Reason For Visit: Schizoaffective disorder-Bipolar type Interim History: in bed, hypo-motoric. terse. no complaints. states she is here for help with voices. AH are less but remain. also, kind of depressed. per staff, pleasant, cooperative, taking meds. up until 0100 last night. Mental Status Exam Mental Status Exam Narrative: appropriately dressed and groomed. general PMR, cooperative. speech decr rate, amount, loudness. flattened tone, incr latency. thoughts linear and logical. affect constricted, hypo-intense, non-labile. mood depressed. +AH. no SI/HI/VH expressed. Diagnostics Vital Signs (24Hr): Vital Signs - 24 hr 03/07/22 06:00 Temperature 98.2 F Pulse Rate 91 Respiratory Rate 18 Blood Pressure 120/74 Pulse Oximetry 97 BMI result Body Mass Index 29.1 Labs Results: 03/07/22 07:14 03/07/22 07:14 Labs: Laboratory Results - last 48 hr 03/07/22 03/07/22 03/07/22 07:14 07:14 07:14 WBC 6.5 RBC 4.40 Hgb 13.4 Hct 41.2 MCV 93.6 MCH 30.5 MCHC 32.5 RDW 13.4 Plt Count 213 MPV 10.7 Immature Gran % (Auto) 0.5 H Neut % (Auto) 52.3 Lymph % (Auto) 35.9 [place] % (Auto) 7.6 Eos % (Auto) 2.6 Baso % (Auto) 1.1 Lymph # (Auto) 2.3 [place] # (Auto) 0.5 Eos # (Auto) 0.2 Baso # (Auto) 0.1 Abs Immat Gran (auto) 0.03 Absolute Neuts (auto) 3.4 Absolute Nucleated RBC 0.000 Nucleated RBC % (auto) 0.0 Sodium 141 Potassium 4.6 D Chloride 104 Carbon Dioxide 27 Anion Gap 15 BUN 23 H D Creatinine 0.78 Estim Creat Clear Calc 82.4 Estimated GFR > 60 Random Glucose 97 Estimat Average Glucose 120 Hemoglobin A1c % 5.8 Calcium 9.1 Total Bilirubin 0.3 AST 15 ALT 15 Alkaline Phosphatase 74 Total Protein 6.3 L Albumin 3.6 Triglycerides 197 Cholesterol 252 LDL Cholesterol, Calc 165 HDL Cholesterol 48 Vitamin B12 Folate TSH 0.57 03/07/22 07:14 WBC RBC Hgb Hct MCV MCH MCHC RDW Plt Count MPV Immature Gran % (Auto) Neut % (Auto) Lymph % (Auto) [place] % (Auto) Eos % (Auto) Baso % (Auto) Lymph # (Auto) [place] # (Auto) Eos # (Auto) Baso # (Auto) Abs Immat Gran (auto) Absolute Neuts (auto) Absolute Nucleated RBC Nucleated RBC % (auto) Sodium Potassium Chloride Carbon Dioxide Anion Gap BUN Creatinine Estim Creat Clear Calc Estimated GFR Random Glucose Estimat Average Glucose Hemoglobin A1c % Calcium Total Bilirubin AST ALT Alkaline Phosphatase Total Protein Albumin Triglycerides Cholesterol LDL Cholesterol, Calc HDL Cholesterol Vitamin B12 367 Folate 11.0 TSH Medications Medications Current Medications Acetaminophen (Acetaminophen 325 Mg Tablet) 650 mg PO Q6H PRN PRN Reason: Headache/Pain Mild Scale (1-3) Last Admin: 03/06/22 14:50 Dose: 650 mg Al Hydroxide/Mg Hydroxide (Magnesium Hydrox/Alum Hydrox 30 Ml Oral.Susp) 30 ml PO Q6H PRN PRN Reason: Heartburn/Nausea Benztropine Mesylate (Benztropine Mesylate 0.5 Mg Tablet) 0.5 mg PO BID [facility] Last Admin: 03/07/22 09:09 Dose: 0.5 mg Diphenhydramine HCl (Diphenhydramine Hcl 12.5 Mg/5 Ml Liquid) 50 mg PO BEDTIME PRN PRN Reason: insomnia Last Admin: 03/05/22 22:44 Dose: 50 mg Divalproex Sodium (Divalproex Sodium Er 250 Mg Tab.Er.24h) 250 mg PO BEDTIME [facility] Last Admin: 03/06/22 19:45 Dose: 250 mg Hydroxyzine HCl (Hydroxyzine Hcl 25 Mg Tablet) 25 mg PO Q6H PRN PRN Reason: Anxiety Last Admin: 03/02/22 12:17 Dose: 25 mg Ibuprofen (Ibuprofen 600 Mg Tablet) 600 mg PO Q8H PRN PRN Reason: knee pain Magnesium Hydroxide (Milk Of Magnesia 30 Ml Oral.Susp) 30 ml PO DAILY PRN PRN Reason: Constipation Olanzapine (Olanzapine Odt 10 Mg Tab.Rapdis) 10 mg TRANSLINGU Q8H PRN PRN Reason: psychotic agitation Olanzapine (Olanzapine 10 Mg Tablet) 10 mg PO BID [facility] Last Admin: 03/07/22 09:09 Dose: 10 mg Olanzapine (Olanzapine 10 Mg Vial) 10 mg IM BID PRN PRN Reason: if pt refuses po zyprexamiriam Trazodone HCl (Trazodone Hcl 50 Mg Tablet) 50 mg PO BEDTIME PRN PRN Reason: Insomnia Last Admin: 03/05/22 22:44 Dose: 50 mg Allergies Allergies Allergy/AdvReac Type Severity Reaction Status Date / Time haloperidol [From Haldol] AdvReac Mild AGITATION Verified 01/31/22 16:01 From Inderal Allergy Intermediate IRREGULAR Uncoded 03/21/20 16:26 HEARTBEAT Haldol Allergy Unknown Agitated Uncoded 01/31/22 16:01 Propanolol Allergy Unknown Unknown Uncoded 01/31/22 16:01 Assessment & Plan Assessment & Plan (1) Schizoaffective disorder: Qualifiers: Schizoaffective disorder type: unspecified Qualified Code(s): F25.9 - Schizoaffective disorder, unspecified Status: Acute Code(s): F25.9 - Schizoaffective disorder, unspecified Assessment and Plan: 61 yo female, history of schizoaffective disorder, bipolar type. Pt found incoherent in [facility] with confusion, lability of mood, delusional content. Assisted to hospital with police. Today, labile, angry and significantly abusive on the unit with agitation, pacing, swearing, threatening, disrobing and confusion. Bharat's guardianship in place. Section [address] in place to 02/05. Plan: Pt has refused all diagnostics. Continue current regime, which follows Bharat's order. Pt asks for sleep medication, declines Trazodone. Ativan 1 mg HS prn insomnia Probable section 7/ Collateral contacts. 02/04/22 Bhraat's guardianship clarified. Latuda 40 mg daily. If pt refuses Olanzapine 10 mg IM Will file Section VII on 02/05. Attempt alliance building-currently pt is violent, psychotic, labile 02/06/22 Support pt in the milieu Educate regarding behaviors which place her at risk in community Section 7, court 02/12/22. 02/07/22: No med changes, pt declines to engage 02/11/22: [place] building attempts 02/12/22: Continue current regime. 02/13/22: Court 02/26/22. Continue current regime. 02/14 no changes to current regimen 02/15 no changes to current regimen 02/16/[address] 02/26/22 02/17/22 Pt isolated cont tx plan remains withdrawn not engaged . 02/19/22 Continue current plan 02/20/22 Increase Olanzapine to 7.5 mg bid 02/21 continue current tx plan 02/22 continue current tx plan 02/23 Pt tolerated a brief discussion of her thoughts regarding her court date and treatment planning before dismissing tw. Will continue this discussion on 02/24. 02/24/22 Decl[address] discussion of upcoming court date. Requested continuation so we can continue to attempt to work with pt-Court date rescheduled for 03/12/22. 02/26/22 Discontinue Latuda Olanzapine 10 mg bid Will begin to address pt's verbalized concerns she identified today. 03/01/22 Improving. Continue current plan 03/02/22 Improved communication so interventions may be targeted. Continue current regime. 03/04/22 Lamictal 25 mg bid to begin 03/05/22. 03/06/22 Continue current regime. 03/07: continue current mgmt. I spent __15____ minutes with the patient and/or on the patient floor today, greater than?50% of which was spent counseling/coordinating care. Reason for contiued inpatient stay Substantial Risk for: inability to function and rapid decompensation
[2022-03-07] MEDS: Divalproex Sodium ER 250 MG TAB.ER.24H PO (21:32)
[2022-03-08 06:00] VITALS: BP 117/74; PULSE 87; RESP 18; TEMP 36.7; O2SAT 96
[2022-03-08] MEDS: OLANZapine 10 MG TABLET PO ×2 (08:33→20:56)
[2022-03-08] MEDS: Benztropine Mesylate 0.5 MG TABLET PO ×2 (08:33→20:56)
--- NOTE | 2022-03-08 16:59 | P.PNPSI_ITS ---
Subjective Subjective Date of Service: 03/08/22 Reason For Visit: Schizoaffective disorder-Bipolar type Interim History: pt found resting in bed. slowed. states she is doing not too great. worried she won't be able to return to her apartment and will be dispo'ed to a rest home. advised to discuss with SW on wednesday. AH less. per staff, sleeping much of the day. taking meds and eating meals. slept overnight. Mental Status Exam Mental Status Exam Narrative: appropriately dressed and groomed. general PMR, cooperative. speech decr rate, amount, loudness. flattened tone, incr latency. thoughts linear and logical. affect constricted, hypo-intense, non-labile. mood depressed. +AH. no SI/HI/VH expressed. Diagnostics Vital Signs (24Hr): Vital Signs - 24 hr 03/08/22 06:00 Temperature 98.0 F Pulse Rate 87 Respiratory Rate 18 Blood Pressure 117/74 Pulse Oximetry 96 BMI result Body Mass Index 29.1 Labs Results: 03/07/22 07:14 03/07/22 07:14 Labs: Laboratory Results - last 48 hr 03/07/22 03/07/22 03/07/22 07:14 07:14 07:14 WBC 6.5 RBC 4.40 Hgb 13.4 Hct 41.2 MCV 93.6 MCH 30.5 MCHC 32.5 RDW 13.4 Plt Count 213 MPV 10.7 Immature Gran % (Auto) 0.5 H Neut % (Auto) 52.3 Lymph % (Auto) 35.9 [place] % (Auto) 7.6 Eos % (Auto) 2.6 Baso % (Auto) 1.1 Lymph # (Auto) 2.3 [place] # (Auto) 0.5 Eos # (Auto) 0.2 Baso # (Auto) 0.1 Abs Immat Gran (auto) 0.03 Absolute Neuts (auto) 3.4 Absolute Nucleated RBC 0.000 Nucleated RBC % (auto) 0.0 Sodium 141 Potassium 4.6 D Chloride 104 Carbon Dioxide 27 Anion Gap 15 BUN 23 H D Creatinine 0.78 Estim Creat Clear Calc 82.4 Estimated GFR > 60 Random Glucose 97 Estimat Average Glucose 120 Hemoglobin A1c % 5.8 Calcium 9.1 Total Bilirubin 0.3 AST 15 ALT 15 Alkaline Phosphatase 74 Total Protein 6.3 L Albumin 3.6 Triglycerides 197 Cholesterol 252 LDL Cholesterol, Calc 165 HDL Cholesterol 48 Vitamin B12 Folate TSH 0.57 03/07/22 07:14 WBC RBC Hgb Hct MCV MCH MCHC RDW Plt Count MPV Immature Gran % (Auto) Neut % (Auto) Lymph % (Auto) [place] % (Auto) Eos % (Auto) Baso % (Auto) Lymph # (Auto) [place] # (Auto) Eos # (Auto) Baso # (Auto) Abs Immat Gran (auto) Absolute Neuts (auto) Absolute Nucleated RBC Nucleated RBC % (auto) Sodium Potassium Chloride Carbon Dioxide Anion Gap BUN Creatinine Estim Creat Clear Calc Estimated GFR Random Glucose Estimat Average Glucose Hemoglobin A1c % Calcium Total Bilirubin AST ALT Alkaline Phosphatase Total Protein Albumin Triglycerides Cholesterol LDL Cholesterol, Calc HDL Cholesterol Vitamin B12 367 Folate 11.0 TSH Medications Medications Current Medications Acetaminophen (Acetaminophen 325 Mg Tablet) 650 mg PO Q6H PRN PRN Reason: Headache/Pain Mild Scale (1-3) Last Admin: 03/06/22 14:50 Dose: 650 mg Al Hydroxide/Mg Hydroxide (Magnesium Hydrox/Alum Hydrox 30 Ml Oral.Susp) 30 ml PO Q6H PRN PRN Reason: Heartburn/Nausea Benztropine Mesylate (Benztropine Mesylate 0.5 Mg Tablet) 0.5 mg PO BID [facility] Last Admin: 03/08/22 08:33 Dose: 0.5 mg Diphenhydramine HCl (Diphenhydramine Hcl 12.5 Mg/5 Ml Liquid) 50 mg PO BEDTIME PRN PRN Reason: insomnia Last Admin: 03/05/22 22:44 Dose: 50 mg Divalproex Sodium (Divalproex Sodium Er 250 Mg Tab.Er.24h) 250 mg PO BEDTIME ANNA Last Admin: 03/07/22 21:32 Dose: 250 mg Hydroxyzine HCl (Hydroxyzine Hcl 25 Mg Tablet) 25 mg PO Q6H PRN PRN Reason: Anxiety Last Admin: 03/02/22 12:17 Dose: 25 mg Ibuprofen (Ibuprofen 600 Mg Tablet) 600 mg PO Q8H PRN PRN Reason: knee pain Magnesium Hydroxide (Milk Of Magnesia 30 Ml Oral.Susp) 30 ml PO DAILY PRN PRN Reason: Constipation Olanzapine (Olanzapine Odt 10 Mg Tab.Rapdis) 10 mg TRANSLINGU Q8H PRN PRN Reason: psychotic agitation Olanzapine (Olanzapine 10 Mg Tablet) 10 mg PO BID ANNA Last Admin: 03/08/22 08:33 Dose: 10 mg Olanzapine (Olanzapine 10 Mg Vial) 10 mg IM BID PRN PRN Reason: if pt refuses po zyprexamiriam Trazodone HCl (Trazodone Hcl 50 Mg Tablet) 50 mg PO BEDTIME PRN PRN Reason: Insomnia Last Admin: 03/05/22 22:44 Dose: 50 mg Allergies Allergies Allergy/AdvReac Type Severity Reaction Status Date / Time haloperidol [From Haldol] AdvReac Mild AGITATION Verified 01/31/22 16:01 From Inderal Allergy Intermediate IRREGULAR Uncoded 03/21/20 16:26 HEARTBEAT Haldol Allergy Unknown Agitated Uncoded 01/31/22 16:01 Propanolol Allergy Unknown Unknown Uncoded 01/31/22 16:01 Assessment & Plan Assessment & Plan (1) Schizoaffective disorder: Qualifiers: Schizoaffective disorder type: unspecified Qualified Code(s): F25.9 - Schizoaffective disorder, unspecified Status: Acute Code(s): F25.9 - Schizoaffective disorder, unspecified Assessment and Plan: 61 yo female, history of schizoaffective disorder, bipolar type. Pt found incoherent in [facility] with confusion, lability of mood, delusional content. Assisted to hospital with police. Today, labile, angry and significantly abusive on the unit with agitation, pacing, swearing, threatening, disrobing and confusion. Bharat's guardianship in place. Section [address] in place to 02/05. Plan: Pt has refused all diagnostics. Continue current regime, which follows Bharat's order. Pt asks for sleep medication, declines Trazodone. Ativan 1 mg HS prn insomnia Probable section 7/ Collateral contacts. 02/04/22 Bharat's guardianship clarified. Latuda 40 mg daily. If pt refuses Olanzapine 10 mg IM Will file Section VII on 02/05. Attempt alliance building-currently pt is violent, psychotic, labile 02/06/22 Support pt in the milieu Educate regarding behaviors which place her at risk in community Section 7, court 02/12/22. 02/07/22: No med changes, pt declines to engage 02/11/22: [place] building attempts 02/12/22: Continue current regime. 02/13/22: Court 02/26/22. Continue current regime. 02/14 no changes to current regimen 02/15 no changes to current regimen 02/16/[address] 02/26/22 02/17/22 Pt isolated cont tx plan remains withdrawn not engaged . 02/19/22 Continue current plan 02/20/22 Increase Olanzapine to 7.5 mg bid 02/21 continue current tx plan 02/22 continue current tx plan 02/23 Pt tolerated a brief discussion of her thoughts regarding her court date and treatment planning before dismissing tw. Will continue this discussion on 02/24. 02/24/22 [address] of upcoming court date. Requested continuation so we can continue to attempt to work with pt-Court date rescheduled for 03/12/22. 02/26/22 Discontinue Latuda Olanzapine 10 mg bid Will begin to address pt's verbalized concerns she identified today. 03/01/22 Improving. Continue current plan 03/02/22 Improved communication so interventions may be targeted. Continue current regime. 03/04/22 Lamictal 25 mg bid to begin 03/05/22. 03/06/22 Continue current regime. 03/07: continue current mgmt. 03/08: continue current mgmt. I spent ___15___ minutes with the patient and/or on the patient floor today, greater than?50% of which was spent counseling/coordinating care. Reason for contiued inpatient stay Substantial Risk for: inability to function and rapid decompensation
[2022-03-08] MEDS: Divalproex Sodium ER 250 MG TAB.ER.24H PO (20:56)
[2022-03-08] MEDS: traZODone HCL 50 MG TABLET PO (20:58)
[2022-03-08] MEDS: Ibuprofen 600 MG TABLET PO (20:58)
[2022-03-09 06:00] VITALS: BP 112/67; PULSE 94; RESP 18; TEMP 36.8; O2SAT 97
[2022-03-09] MEDS: Benztropine Mesylate 0.5 MG TABLET PO ×2 (08:36→20:31)
[2022-03-09] MEDS: OLANZapine 10 MG TABLET PO ×2 (08:36→20:31)
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
[2022-03-09 18:00] VITALS: BP 118/67; PULSE 88; RESP 16; TEMP 36.7
[2022-03-09] MEDS: Divalproex Sodium ER 250 MG TAB.ER.24H PO (20:31)
[2022-03-09] MEDS: Ibuprofen 600 MG TABLET PO (23:37)
[2022-03-10] MEDS: OLANZapine 10 MG TABLET PO (08:06)
[2022-03-10] MEDS: Benztropine Mesylate 0.5 MG TABLET PO ×2 (08:06→21:06)
[2022-03-10 18:00] VITALS: BP 145/80; PULSE 85; RESP 18; TEMP 35.9; O2SAT 98
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
[2022-03-10] MEDS: Divalproex Sodium ER 250 MG TAB.ER.24H 750 MG PO (21:06)
[2022-03-10] MEDS: OLANZapine 7.5 MG TABLET 15 MG PO (21:06)
[2022-03-10] MEDS: Ibuprofen 600 MG TABLET PO (21:09)
[2022-03-11 06:00] VITALS: RESP 16
[2022-03-11] MEDS: Benztropine Mesylate 0.5 MG TABLET PO ×2 (09:16→20:39)
[2022-03-11] MEDS: OLANZapine 7.5 MG TABLET 15 MG PO ×2 (09:16→20:39)
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
[2022-03-11] MEDS: Divalproex Sodium ER 250 MG TAB.ER.24H 750 MG PO (20:38)
[2022-03-12] MEDS: traZODone HCL 50 MG TABLET PO (00:34)
[2022-03-12] MEDS: OLANZapine 7.5 MG TABLET 15 MG PO ×2 (08:50→19:48)
[2022-03-12] MEDS: Benztropine Mesylate 0.5 MG TABLET PO ×2 (08:51→19:49)
--- NOTE | 2022-03-12 13:01 | P.PNPSI_ITS ---
Subjective Subjective Date of Service: 03/12/22 Reason For Visit: Schizoaffective disorder-Bipolar type Subjective Notes: Section 7 Healthcare Proxy: No Guardianship: No Medical Problems Affecting Mental Status: No Interim History: Jhon discussed wanting to trial an antidepressant. Will initiate Wellbutrin Today, she appears sedate-recent increase of Olanzapine/Depakote which we may need to decrease. She asks that we give it some time. Medication Compliance: Yes Side effects from medications: Yes (sedation?) Attending Groups: No Review of Systems Acute medical concerns: No Medical Review of Systems: unchanged Mental Status Exam Mental Status Exam Patient Appearance: Fatigued and Disheveled Patient Orientation: Person, Place, Time and Situation Level of Consciousness: Alert Patient Behavior: Appropriate, Talkative, Cooperative and Good Eye Contact Mood Description: Flat Affect Description: Flat Patient Cognition Impaired: No Ability to Follow Directions: Good Speech Pattern: Spontaneous Speech Memory Description: Intact Hallucinations: None Delusions: Not Present Thought Process: Rumination Thought Content: positive for Perseveration, positive for Suicidal Ideation (denies) and positive for Homicidal Ideation (denies) Depressive Symptoms: Sleeping More Than Usual, Loss of Int. in Activity, Increased Fatigue and Low Self Esteem Judgement: Fair Diagnostics Vital Signs (24Hr): BMI result Body Mass Index 29.1 Labs Results: 03/07/22 07:14 03/07/22 07:14 Medications Medications Current Medications Acetaminophen (Acetaminophen 325 Mg Tablet) 650 mg PO Q6H PRN PRN Reason: Headache/Pain Mild Scale (1-3) Last Admin: 03/06/22 14:50 Dose: 650 mg Al Hydroxide/Mg Hydroxide (Magnesium Hydrox/Alum Hydrox 30 Ml Oral.Susp) 30 ml PO Q6H PRN PRN Reason: Heartburn/Nausea Benztropine Mesylate (Benztropine Mesylate 0.5 Mg Tablet) 0.5 mg PO BID ANNA Last Admin: 03/12/22 08:51 Dose: 0.5 mg Diphenhydramine HCl (Diphenhydramine Hcl 12.5 Mg/5 Ml Liquid) 50 mg PO BEDTIME PRN PRN Reason: insomnia Last Admin: 03/05/22 22:44 Dose: 50 mg Divalproex Sodium (Divalproex Sodium Er 250 Mg Tab.Er.24h) 750 mg PO BEDTIME ANNA Last Admin: 03/11/22 20:38 Dose: 750 mg Hydroxyzine HCl (Hydroxyzine Hcl 25 Mg Tablet) 25 mg PO Q6H PRN PRN Reason: Anxiety Last Admin: 03/02/22 12:17 Dose: 25 mg Ibuprofen (Ibuprofen 600 Mg Tablet) 600 mg PO Q8H PRN PRN Reason: knee pain Last Admin: 03/10/22 21:09 Dose: 600 mg Magnesium Hydroxide (Milk Of Magnesia 30 Ml Oral.Susp) 30 ml PO DAILY PRN PRN Reason: Constipation Olanzapine (Olanzapine Odt 10 Mg Tab.Rapdis) 10 mg TRANSLINGU Q8H PRN PRN Reason: psychotic agitation Olanzapine (Olanzapine 7.5 Mg Tablet) 15 mg PO BID ANNA Last Admin: 03/12/22 08:50 Dose: 15 mg Olanzapine (Olanzapine 10 Mg Vial) 15 mg IM BID PRN PRN Reason: if pt refuses po zyprexamiriam Trazodone HCl (Trazodone Hcl 50 Mg Tablet) 50 mg PO BEDTIME PRN PRN Reason: Insomnia Last Admin: 03/12/22 00:34 Dose: 50 mg Allergies Allergies Allergy/AdvReac Type Severity Reaction Status Date / Time haloperidol [From Haldol] AdvReac Mild AGITATION Verified 01/31/22 16:01 From Inderal Allergy Intermediate IRREGULAR Uncoded 03/21/20 16:26 HEARTBEAT Haldol Allergy Unknown Agitated Uncoded 01/31/22 16:01 Propanolol Allergy Unknown Unknown Uncoded 01/31/22 16:01 Assessment & Plan Assessment & Plan (1) Schizoaffective disorder: Qualifiers: Schizoaffective disorder type: unspecified Qualified Code(s): F25.9 - Schizoaffective disorder, unspecified Status: Acute Code(s): F25.9 - Schizoaffective disorder, unspecified Assessment and Plan: 61 yo female, history of schizoaffective disorder, bipolar type. [facility] confusion, lability of mood, delusional content. Assisted to hospital with police. Today, labile, angry and significantly abusive on the unit with agitation, pacing, swearing, threatening, disrobing and confusion. Bharat's guardianship in place. Section 12[address] in place to 02/05. Plan: Pt has refused all diagnostics. Continue current regime, which follows Bharat's order. Pt asks for sleep medication, declines Trazodone. Ativan 1 mg HS prn insomnia Probable section 7 Collateral contacts. 02/04/22 Bharat's guardianship clarified. Latuda 40 mg daily. If pt refuses Olanzapine 10 mg IM Will file Section VII on 02/05. Attempt alliance building-currently pt is violent, psychotic, labile 02/06/22 Support pt in the milieu Educate regarding behaviors which place her at risk in community Section 7, court 02/12/22. 02/07/22: No med changes, pt declines to engage 02/11/22: [place] building attempts 02/12/22: Continue current regime. 02/13/22: Court 02/26/22. Continue current regime. 02/14 no changes to current regimen 02/15 no changes to current regimen 02/16/[address] 02/26/22 02/17/22 Pt isolated cont tx plan remains withdrawn not engaged . 02/19/22 Continue current plan 02/20/22 Increase Olanzapine to 7.5 mg bid 02/21 continue current tx plan 02/22 continue current tx plan 02/23 Pt tolerated a brief discussion of her thoughts regarding her court date and treatment planning before dismissing tw. Will continue this discussion on 02/24. 02/24/22 [address] discussion of upcoming court date. Requested continuation so we can continue to attempt to work with pt-Court date rescheduled for 03/12/22. 02/26/22 Discontinue Latuda Olanzapine 10 mg bid Will begin to address pt's verbalized concerns she identified today. 03/01/22 Improving. Continue current plan 03/02/22 Improved communication so interventions may be targeted. Continue current regime. 03/04/22 Lamictal 25 mg bid to begin 03/05/22. 03/06/22 Continue current regime. 03/07: continue current mgmt. 03/08: continue current mgmt. 03/09: more active today, better able to engage with MD. continue current mgmt. 03/12/22 Wellbutrin 75 mg a.m. I spent minutes with the patient and/or on the patient floor today, greater than?50% of which was spent counseling/coordinating care. Patient educated on: medication risk/benefits Informed Consent: understands and further education needed Reason for contiued inpatient stay Substantial Risk for: harm to self, harm to others, inability to function and med/psych decompensation
[2022-03-12 15:41] VITALS: BP 113/79; PULSE 110
[2022-03-12] MEDS: Divalproex Sodium ER 250 MG TAB.ER.24H 750 MG PO (19:48)
[2022-03-12] MEDS: Ibuprofen 600 MG TABLET PO (19:52)
[2022-03-13] MEDS: OLANZapine 7.5 MG TABLET 15 MG PO ×2 (09:05→19:16)
[2022-03-13] MEDS: buPROPion HCL 75 MG TABLET PO (09:05)
[2022-03-13] MEDS: Benztropine Mesylate 0.5 MG TABLET PO ×2 (09:06→19:16)
--- NOTE | 2022-03-13 09:17 | HO.PSYCHPN ---
Subjective Subjective Date of Service: 03/13/22 Reason For Visit: Schizoaffective disorder-Bipolar type Subjective Notes: Section 7 Healthcare Proxy: No Guardianship: Yes Medical Problems Affecting Mental Status: No Interim History: Tolerating Wellbutrin. Denies SE. Encouraged to attend to ADL's. States she will over the weekend. States no response yet, asks not to decrease Depakote or Olanzapine yet, however appears sedate. Medication Compliance: Yes Side effects from medications: No Attending Groups: No Review of Systems Acute medical concerns: No Medical Review of Systems: unchanged Mental Status Exam Mental Status Exam Patient Appearance: Fatigued and Disheveled Patient Orientation: Person, Place, Time and Situation Level of Consciousness: Alert Patient Behavior: Appropriate, Talkative, Cooperative and Good Eye Contact Mood Description: Flat Affect Description: Flat Patient Cognition Impaired: No Ability to Follow Directions: Good Speech Pattern: Spontaneous Speech Memory Description: Intact Hallucinations: None Delusions: Not Present Thought Process: Rumination Thought Content: positive for Perseveration, positive for Suicidal Ideation (denies) and positive for Homicidal Ideation (denies) Depressive Symptoms: Sleeping More Than Usual, Loss of Int. in Activity, Increased Fatigue and Low Self Esteem Judgement: Fair Diagnostics Vital Signs (24Hr): Vital Signs - 24 hr 03/12/22 15:41 Pulse Rate 110 H Blood Pressure 113/79 BMI result Body Mass Index 29.1 Labs Results: 03/07/22 07:14 03/07/22 07:14 Medications Medications Current Medications Acetaminophen (Acetaminophen 325 Mg Tablet) 650 mg PO Q6H PRN PRN Reason: Headache/Pain Mild Scale (1-3) Last Admin: 03/06/22 14:50 Dose: 650 mg Al Hydroxide/Mg Hydroxide (Magnesium Hydrox/Alum Hydrox 30 Ml Oral.Susp) 30 ml PO Q6H PRN PRN Reason: Heartburn/Nausea Benztropine Mesylate (Benztropine Mesylate 0.5 Mg Tablet) 0.5 mg PO BID REPLACED BY [facility] Last Admin: 03/13/22 09:06 Dose: 0.5 mg Bupropion HCl (Bupropion Hcl 75 Mg Tablet) 75 mg PO DAILY REPLACED BY [facility] Last Admin: 03/13/22 09:05 Dose: 75 mg Diphenhydramine HCl (Diphenhydramine Hcl 12.5 Mg/5 Ml Liquid) 50 mg PO BEDTIME PRN PRN Reason: insomnia Last Admin: 03/05/22 22:44 Dose: 50 mg Divalproex Sodium (Divalproex Sodium Er 250 Mg Tab.Er.24h) 750 mg PO BEDTIME ANNA Last Admin: 03/12/22 19:48 Dose: 750 mg Hydroxyzine HCl (Hydroxyzine Hcl 25 Mg Tablet) 25 mg PO Q6H PRN PRN Reason: Anxiety Last Admin: 03/02/22 12:17 Dose: 25 mg Ibuprofen (Ibuprofen 600 Mg Tablet) 600 mg PO Q8H PRN PRN Reason: knee pain Last Admin: 03/12/22 19:52 Dose: 600 mg Magnesium Hydroxide (Milk Of Magnesia 30 Ml Oral.Susp) 30 ml PO DAILY PRN PRN Reason: Constipation Olanzapine (Olanzapine Odt 10 Mg Tab.Rapdis) 10 mg TRANSLINGU Q8H PRN PRN Reason: psychotic agitation Olanzapine (Olanzapine 7.5 Mg Tablet) 15 mg PO BID ANNA Last Admin: 03/13/22 09:05 Dose: 15 mg Olanzapine (Olanzapine 10 Mg Vial) 15 mg IM BID PRN PRN Reason: if pt refuses po zyprexa-bharat Trazodone HCl (Trazodone Hcl 50 Mg Tablet) 50 mg PO BEDTIME PRN PRN Reason: Insomnia Last Admin: 03/12/22 00:34 Dose: 50 mg Allergies Allergies Allergy/AdvReac Type Severity Reaction Status Date / Time haloperidol [From Haldol] AdvReac Mild AGITATION Verified 01/31/22 16:01 From Inderal Allergy Intermediate IRREGULAR Uncoded 03/21/20 16:26 HEARTBEAT Haldol Allergy Unknown Agitated Uncoded 01/31/22 16:01 Propanolol Allergy Unknown Unknown Uncoded 01/31/22 16:01 Assessment & Plan Assessment & Plan (1) Schizoaffective disorder: Qualifiers: Schizoaffective disorder type: unspecified Qualified Code(s): F25.9 - Schizoaffective disorder, unspecified Status: Acute Code(s): F25.9 - Schizoaffective disorder, unspecified Assessment and Plan: 61 yo female, history of schizoaffective disorder, bipolar type. [facility], lability of mood, delusional content. Assisted to hospital with police. Today, labile, angry and significantly abusive on the unit with agitation, pacing, swearing, threatening, disrobing and confusion. Bharat's guardianship in place. Section 12B in place to 02/05. Plan: Pt has refused all diagnostics. Continue current regime, which follows Bharat's order. Pt asks for sleep medication, declines Trazodone. Ativan 1 mg HS prn insomnia Probable section 7/8 Collateral contacts. 02/04/22 Bharat's guardianship clarified. Latuda 40 mg daily. If pt refuses Olanzapine 10 mg IM Will file Section VII on 02/05. Attempt alliance building-currently pt is violent, psychotic, labile 02/06/22 Support pt in the milieu Educate regarding behaviors which place her at risk in community Section 7, court 02/12/22. 02/07/22: No med changes, pt declines to engage 02/11/22: [place] building attempts 02/12/22: Continue current regime. 02/13/22: Court 02/26/22. Continue current regime. 02/14 no changes to current regimen 02/15 no changes to current regimen 02/16/[address] 02/26/22 02/17/22 Pt isolated cont tx plan remains withdrawn not engaged . 02/19/22 Continue current plan 02/20/22 Increase Olanzapine to 7.5 mg bid 02/21 continue current tx plan 02/22 continue current tx plan 02/23 Pt tolerated a brief discussion of her thoughts regarding her court date and treatment planning before dismissing tw. Will continue this discussion on 02/24. 02/24/22 Decl[address] discussion of upcoming court date. Requested continuation so we can continue to attempt to work with pt-Court date rescheduled for 03/12/22. 02/26/22 Discontinue Latuda Olanzapine 10 mg bid Will begin to address pt's verbalized concerns she identified today. 03/01/22 Improving. Continue current plan 03/02/22 Improved communication so interventions may be targeted. Continue current regime. 03/04/22 Lamictal 25 mg bid to begin 03/05/22. 03/06/22 Continue current regime. 03/07: continue current mgmt. 03/08: continue current mgmt. 03/09: more active today, better able to engage with MD. continue current mgmt. 03/13/22: Continue current regime I spent minutes with the patient and/or on the patient floor today, greater than?50% of which was spent counseling/coordinating care. Patient educated on: medication risk/benefits Informed Consent: understands and further education needed Reason for contiued inpatient stay Substantial Risk for: harm to self, harm to others, inability to function and med/psych decompensation
[2022-03-13 16:56] VITALS: BP 120/80; PULSE 89
[2022-03-13] MEDS: Ibuprofen 600 MG TABLET PO (19:16)
[2022-03-13] MEDS: Divalproex Sodium ER 250 MG TAB.ER.24H 750 MG PO (19:16)
[2022-03-13] MEDS: hydrOXYzine HCL 25 MG TABLET PO (23:41)
[2022-03-13] MEDS: traZODone HCL 50 MG TABLET PO (23:41)
[2022-03-14] MEDS: Benztropine Mesylate 0.5 MG TABLET PO ×2 (09:30→20:32)
[2022-03-14] MEDS: OLANZapine 7.5 MG TABLET 15 MG PO ×2 (09:30→20:33)
[2022-03-14] MEDS: buPROPion HCL 75 MG TABLET PO (09:30)
--- NOTE | 2022-03-14 15:38 | HO.PSYCHPN ---
Subjective Subjective Date of Service: 03/14/22 Reason For Visit: Schizoaffective disorder-Bipolar type Subjective Notes: Section 7 Interim History: Met with patient. Discussed with Nursing. Overall seen in room. Presents as depressed, poor self-care, isolative. No motivation. Poor sleep. Hopeful that Wellbutrin will be helpful. Otherwise is hopeless and suicidal at times, but denies plans or intent. No delusions. Medication Compliance: Yes Side effects from medications: No Attending Groups: No Review of Systems Acute medical concerns: No Review of Systems Review of Systems Unremarkable Mental Status Exam Mental Status Exam Narrative: In bed. Poor self-care. Organized. Depressed. Intermittent SI no plans or intent. No psychosis or HI. Insight and judgment okay Diagnostics Vital Signs (24Hr): Vital Signs - 24 hr 03/13/22 16:56 Pulse Rate 89 Blood Pressure 120/80 BMI result Body Mass Index 29.1 Labs Results: 03/07/22 07:14 03/07/22 07:14 Medications Medications Current Medications Acetaminophen (Acetaminophen 325 Mg Tablet) 650 mg PO Q6H PRN PRN Reason: Headache/Pain Mild Scale (1-3) Last Admin: 03/06/22 14:50 Dose: 650 mg Al Hydroxide/Mg Hydroxide (Magnesium Hydrox/Alum Hydrox 30 Ml Oral.Susp) 30 ml PO Q6H PRN PRN Reason: Heartburn/Nausea Benztropine Mesylate (Benztropine Mesylate 0.5 Mg Tablet) 0.5 mg PO BID [facility] Last Admin: 03/14/22 09:30 Dose: 0.5 mg Bupropion HCl (Bupropion Hcl 75 Mg Tablet) 75 mg PO DAILY [facility] Last Admin: 03/14/22 09:30 Dose: 75 mg Diphenhydramine HCl (Diphenhydramine Hcl 12.5 Mg/5 Ml Liquid) 50 mg PO BEDTIME PRN PRN Reason: insomnia Last Admin: 03/05/22 22:44 Dose: 50 mg Divalproex Sodium (Divalproex Sodium Er 250 Mg Tab.Er.24h) 750 mg PO BEDTIME [facility] Last Admin: 03/13/22 19:16 Dose: 750 mg Hydroxyzine HCl (Hydroxyzine Hcl 25 Mg Tablet) 25 mg PO Q6H PRN PRN Reason: Anxiety Last Admin: 03/13/22 23:41 Dose: 25 mg Ibuprofen (Ibuprofen 600 Mg Tablet) 600 mg PO Q8H PRN PRN Reason: knee pain Last Admin: 03/13/22 19:16 Dose: 600 mg Magnesium Hydroxide (Milk Of Magnesia 30 Ml Oral.Susp) 30 ml PO DAILY PRN PRN Reason: Constipation Olanzapine (Olanzapine Odt 10 Mg Tab.Rapdis) 10 mg TRANSLINGU Q8H PRN PRN Reason: psychotic agitation Olanzapine (Olanzapine 7.5 Mg Tablet) 15 mg PO BID ANNA Last Admin: 03/14/22 09:30 Dose: 15 mg Olanzapine (Olanzapine 10 Mg Vial) 15 mg IM BID PRN PRN Reason: if pt refuses po zyprexamiriam Trazodone HCl (Trazodone Hcl 50 Mg Tablet) 50 mg PO BEDTIME PRN PRN Reason: Insomnia Last Admin: 03/13/22 23:41 Dose: 50 mg Allergies Allergies Allergy/AdvReac Type Severity Reaction Status Date / Time haloperidol [From Haldol] AdvReac Mild AGITATION Verified 01/31/22 16:01 From Inderal Allergy Intermediate IRREGULAR Uncoded 03/21/20 16:26 HEARTBEAT Haldol Allergy Unknown Agitated Uncoded 01/31/22 16:01 Propanolol Allergy Unknown Unknown Uncoded 01/31/22 16:01 Assessment & Plan Assessment & Plan (1) Schizoaffective disorder: Qualifiers: Schizoaffective disorder type: unspecified Qualified Code(s): F25.9 - Schizoaffective disorder, unspecified Status: Acute Code(s): F25.9 - Schizoaffective disorder, unspecified Assessment and Plan: 61 yo female, history of schizoaffective disorder, bipolar type. Pt [facility] in [facility] with confusion, lability of mood, delusional content. Assisted to hospital with police. Today, labile, angry and significantly abusive on the unit with agitation, pacing, swearing, threatening, disrobing and confusion. Bharat's guardianship in place. Section 12B in place to 02/05. Plan: Pt has refused all diagnostics. Continue current regime, which follows Bharat's order. Pt asks for sleep medication, declines Trazodone. Ativan 1 mg HS prn insomnia Probable section 01/09 Collateral contacts. 02/04/22 Bharat's guardianship clarified. Latuda 40 mg daily. If pt refuses Olanzapine 10 mg IM Will file Section VII on 02/05. Attempt alliance building-currently pt is violent, psychotic, labile 02/06/22 Support pt in the milieu Educate regarding behaviors which place her at risk in community Section 7, court 02/12/22. 02/07/22: No med changes, pt declines to engage 02/11/22: [place] building attempts 02/12/22: Continue current regime. 02/13/22: Court 02/26/22. Continue current regime. 02/14 no changes to current regimen 02/15 no changes to current regimen 02/16/[address] 02/26/22 02/17/22 Pt isolated cont tx plan remains withdrawn not engaged . 02/19/22 Continue current plan 02/20/22 Increase Olanzapine to 7.5 mg bid 02/21 continue current tx plan 02/22 continue current tx plan 02/23 Pt tolerated a brief discussion of her thoughts regarding her court date and treatment planning before dismissing tw. Will continue this discussion on 02/24. 02/24/22 [address] discussion of upcoming court date. Requested continuation so we can continue to attempt to work with pt-Court date rescheduled for 03/12/22. 02/26/22 Discontinue Latuda Olanzapine 10 mg bid Will begin to address pt's verbalized concerns she identified today. 03/01/22 Improving. Continue current plan 03/02/22 Improved communication so interventions may be targeted. Continue current regime. 03/04/22 Lamictal 25 mg bid to begin 03/05/22. 03/06/22 Continue current regime. 03/07: continue current mgmt. 03/08: continue current mgmt. 5: more active today, better able to engage with MD. continue current mgmt. 03/13/22: Continue current regime 03/14/2022: No changes I spent minutes with the patient and/or on the patient floor today, greater than?50% of which was spent counseling/coordinating care. Reason for contiued inpatient stay Substantial Risk for: inability to function
[2022-03-14] MEDS: Divalproex Sodium ER 250 MG TAB.ER.24H 750 MG PO (20:33)
[2022-03-15] MEDS: Ibuprofen 600 MG TABLET PO (01:12)
[2022-03-15 06:00] VITALS: BP 117/79; PULSE 109; TEMP 36.2; O2SAT 97
[2022-03-15] MEDS: Benztropine Mesylate 0.5 MG TABLET PO ×2 (09:04→20:02)
[2022-03-15] MEDS: buPROPion HCL 75 MG TABLET PO (09:05)
[2022-03-15] MEDS: OLANZapine 7.5 MG TABLET 15 MG PO ×2 (09:05→20:02)
--- NOTE | 2022-03-15 16:47 | HO.PSYCHPN ---
Subjective Subjective Date of Service: 03/15/22 Reason For Visit: Schizoaffective disorder-Bipolar type Interim History: Met with patient. Discussed with Nursing. Did shower today. Otherwise continues to present as depressed and isolative. No motivation. Poor sleep. Hopeless and suicidal at times, but denies plans or intent. No delusions. Medication Compliance: Yes Side effects from medications: No Attending Groups: No Review of Systems Acute medical concerns: No Review of Systems Review of Systems Unremarkable Mental Status Exam Mental Status Exam Narrative: In bed. Engaged. Organized. Depressed. Intermittent SI no plans or intent. No psychosis or HI. Insight and judgment okay Diagnostics Vital Signs (24Hr): Vital Signs - 24 hr 03/15/22 06:00 Temperature 97.2 F Pulse Rate 109 H Blood Pressure 117/79 Pulse Oximetry 97 Oxygen Delivery Method Room Air BMI result Body Mass Index 29.1 Labs Results: 03/07/22 07:14 03/07/22 07:14 Medications Medications Current Medications Acetaminophen (Acetaminophen 325 Mg Tablet) 650 mg PO Q6H PRN PRN Reason: Headache/Pain Mild Scale (1-3) Last Admin: 03/06/22 14:50 Dose: 650 mg Al Hydroxide/Mg Hydroxide (Magnesium Hydrox/Alum Hydrox 30 Ml Oral.Susp) 30 ml PO Q6H PRN PRN Reason: Heartburn/Nausea Benztropine Mesylate (Benztropine Mesylate 0.5 Mg Tablet) 0.5 mg PO BID [facility] Last Admin: 03/15/22 09:04 Dose: 0.5 mg Bupropion HCl (Bupropion Hcl 75 Mg Tablet) 75 mg PO DAILY [facility] Last Admin: 03/15/22 09:05 Dose: 75 mg Diphenhydramine HCl (Diphenhydramine Hcl 12.5 Mg/5 Ml Liquid) 50 mg PO BEDTIME PRN PRN Reason: insomnia Last Admin: 03/05/22 22:44 Dose: 50 mg Divalproex Sodium (Divalproex Sodium Er 250 Mg Tab.Er.24h) 750 mg PO BEDTIME [facility] Last Admin: 03/14/22 20:33 Dose: 750 mg Hydroxyzine HCl (Hydroxyzine Hcl 25 Mg Tablet) 25 mg PO Q6H PRN PRN Reason: Anxiety Last Admin: 03/13/22 23:41 Dose: 25 mg Ibuprofen (Ibuprofen 600 Mg Tablet) 600 mg PO Q8H PRN PRN Reason: knee pain Last Admin: 03/15/22 01:12 Dose: 600 mg Magnesium Hydroxide (Milk Of Magnesia 30 Ml Oral.Susp) 30 ml PO DAILY PRN PRN Reason: Constipation Olanzapine (Olanzapine Odt 10 Mg Tab.Rapdis) 10 mg TRANSLINGU Q8H PRN PRN Reason: psychotic agitation Olanzapine (Olanzapine 10 Mg Vial) 15 mg IM BID PRN PRN Reason: if pt refuses po zyprexa-bharat Olanzapine (Olanzapine 7.5 Mg Tablet) 15 mg PO BID [facility] Last Admin: 03/15/22 09:05 Dose: 15 mg Trazodone HCl (Trazodone Hcl 50 Mg Tablet) 50 mg PO BEDTIME PRN PRN Reason: Insomnia Last Admin: 03/13/22 23:41 Dose: 50 mg Allergies Allergies Allergy/AdvReac Type Severity Reaction Status Date / Time haloperidol [From Haldol] AdvReac Mild AGITATION Verified 01/31/22 16:01 From Inderal Allergy Intermediate IRREGULAR Uncoded 03/21/20 16:26 HEARTBEAT Haldol Allergy Unknown Agitated Uncoded 01/31/22 16:01 Propanolol Allergy Unknown Unknown Uncoded 01/31/22 16:01 Assessment & Plan Assessment & Plan (1) Schizoaffective disorder: Qualifiers: Schizoaffective disorder type: unspecified Qualified Code(s): F25.9 - Schizoaffective disorder, unspecified Status: Acute Code(s): F25.9 - Schizoaffective disorder, unspecified Assessment and Plan: 61 yo female, history of schizoaffective disorder, bipolar type. Pt found incoherent in [facility] with confusion, lability of mood, delusional content. Assisted to hospital with police. Today, labile, angry and significantly abusive on the unit with agitation, pacing, swearing, threatening, disrobing and confusion. Bharat's guardianship in place. Section [address] in place to 02/05. Plan: Pt has refused all diagnostics. Continue current regime, which follows Bharat's order. Pt asks for sleep medication, declines Trazodone. Ativan 1 mg HS prn insomnia Probable section 7/ Collateral contacts. 02/04/22 Bharat's guardianship clarified. Latuda 40 mg daily. If pt refuses Olanzapine 10 mg IM Will file Section VII on 02/05. Attempt alliance building-currently pt is violent, psychotic, labile 02/06/22 Support pt in the milieu Educate regarding behaviors which place her at risk in community Section 7, court 02/12/22. 02/07/22: No med changes, pt declines to engage 02/11/22: [place] building attempts 02/12/22: Continue current regime. 02/13/22: Court 02/26/22. Continue current regime. 02/14 no changes to current regimen 02/15 no changes to current regimen 02/16/[address] 02/26/22 02/17/22 Pt isolated cont tx plan remains withdrawn not engaged . 02/19/22 Continue current plan 02/20/22 Increase Olanzapine to 7.5 mg bid 02/21 continue current tx plan 02/22 continue current tx plan 02/23 Pt tolerated a brief discussion of her thoughts regarding her court date and treatment planning before dismissing tw. Will continue this discussion on 02/24. 02/24/22 [address] discussion of upcoming court date. Requested continuation so we can continue to attempt to work with pt-Court date rescheduled for 03/12/22. 02/26/22 Discontinue Latuda Olanzapine 10 mg bid Will begin to address pt's verbalized concerns she identified today. 03/01/22 Improving. Continue current plan 03/02/22 Improved communication so interventions may be targeted. Continue current regime. 03/04/22 Lamictal 25 mg bid to begin 03/05/22. 03/06/22 Continue current regime. 03/07: continue current mgmt. 03/08: continue current mgmt. 03/09: more active today, better able to engage with MD. continue current mgmt. 03/13/22: Continue current regime 03/15/2022: No changes I spent minutes with the patient and/or on the patient floor today, greater than?50% of which was spent counseling/coordinating care. Reason for contiued inpatient stay Substantial Risk for: harm to self and inability to function
[2022-03-15 18:00] VITALS: BP 115/83; PULSE 120; RESP 18; O2SAT 92
[2022-03-15] MEDS: Acetaminophen 325 MG TABLET 650 MG PO (20:02)
[2022-03-15] MEDS: Divalproex Sodium ER 250 MG TAB.ER.24H 750 MG PO (20:02)
[2022-03-16 06:00] VITALS: BP 112/77; PULSE 103; RESP 18; TEMP 36.6; O2SAT 97
[2022-03-16] MEDS: OLANZapine 7.5 MG TABLET 15 MG PO ×2 (08:11→20:01)
[2022-03-16] MEDS: buPROPion HCL 75 MG TABLET PO (08:11)
[2022-03-16] MEDS: Benztropine Mesylate 0.5 MG TABLET PO ×2 (08:11→20:01)
[2022-03-16] MEDS: Ibuprofen 600 MG TABLET PO ×2 (09:23→20:02)
--- NOTE | 2022-03-16 16:40 | P.PNPSI_ITS ---
Subjective Subjective Date of Service: 03/16/22 Reason For Visit: Schizoaffective disorder-Bipolar type Interim History: I attempted to evaluate pt this evening, however she is found in bed apparently asleep around 19:00, she declined interview. Per team, pt has been tolerating meds, more visible but still isolative. Mental Status Exam Mental Status Exam Narrative: Patient Appearance: Fatigued and Disheveled Patient Orientation: Person, Place, Time and Situation Level of Consciousness: Alert Patient Behavior: Appropriate, Talkative, Cooperative and Good Eye Contact Mood Description: Flat Affect Description: Flat Patient Cognition Impaired: No Ability to Follow Directions: Good Speech Pattern: Spontaneous Speech Memory Description: Intact Hallucinations: None Delusions: Not Present Thought Process: Rumination Thought Content: positive for Perseveration, positive for Suicidal Ideation (denies) and positive for Homicidal Ideation (denies) Depressive Symptoms: Sleeping More Than Usual, Loss of Int. in Activity, Increased Fatigue and Low Self Esteem Judgment: Fair Diagnostics Vital Signs (24Hr): Vital Signs - 24 hr 03/15/22 18:00 03/16/22 06:00 Temperature 97.8 F Pulse Rate 120 H 103 H Respiratory Rate 18 18 Blood Pressure 115/83 112/77 Pulse Oximetry 92 97 Oxygen Delivery Method Room Air BMI result Body Mass Index 29.1 Labs Results: 03/07/22 07:14 03/07/22 07:14 Medications Medications Current Medications Acetaminophen (Acetaminophen 325 Mg Tablet) 650 mg PO Q6H PRN PRN Reason: Headache/Pain Mild Scale (1-3) Last Admin: 03/15/22 20:02 Dose: 650 mg Al Hydroxide/Mg Hydroxide (Magnesium Hydrox/Alum Hydrox 30 Ml Oral.Susp) 30 ml PO Q6H PRN PRN Reason: Heartburn/Nausea Benztropine Mesylate (Benztropine Mesylate 0.5 Mg Tablet) 0.5 mg PO BID [facility] Last Admin: 03/16/22 08:11 Dose: 0.5 mg Bupropion HCl (Bupropion Hcl 75 Mg Tablet) 75 mg PO DAILY [facility] Last Admin: 03/16/22 08:11 Dose: 75 mg Diphenhydramine HCl (Diphenhydramine Hcl 12.5 Mg/5 Ml Liquid) 50 mg PO BEDTIME PRN PRN Reason: insomnia Last Admin: 03/05/22 22:44 Dose: 50 mg Divalproex Sodium (Divalproex Sodium Er 250 Mg Tab.Er.24h) 750 mg PO BEDTIME [facility] Last Admin: 03/15/22 20:02 Dose: 750 mg Hydroxyzine HCl (Hydroxyzine Hcl 25 Mg Tablet) 25 mg PO Q6H PRN PRN Reason: Anxiety Last Admin: 03/13/22 23:41 Dose: 25 mg Ibuprofen (Ibuprofen 600 Mg Tablet) 600 mg PO Q8H PRN PRN Reason: knee pain Last Admin: 03/16/22 09:23 Dose: 600 mg Magnesium Hydroxide (Milk Of Magnesia 30 Ml Oral.Susp) 30 ml PO DAILY PRN PRN Reason: Constipation Olanzapine (Olanzapine Odt 10 Mg Tab.Rapdis) 10 mg TRANSLINGU Q8H PRN PRN Reason: psychotic agitation Olanzapine (Olanzapine 10 Mg Vial) 15 mg IM BID PRN PRN Reason: if pt refuses po zyprexa-bharat Olanzapine (Olanzapine 7.5 Mg Tablet) 15 mg PO BID [facility] Last Admin: 03/16/22 08:11 Dose: 15 mg Trazodone HCl (Trazodone Hcl 50 Mg Tablet) 50 mg PO BEDTIME PRN PRN Reason: Insomnia Last Admin: 03/13/22 23:41 Dose: 50 mg Allergies Allergies Allergy/AdvReac Type Severity Reaction Status Date / Time haloperidol [From Haldol] AdvReac Mild AGITATION Verified 01/31/22 16:01 From Inderal Allergy Intermediate IRREGULAR Uncoded 03/21/20 16:26 HEARTBEAT Haldol Allergy Unknown Agitated Uncoded 01/31/22 16:01 Propanolol Allergy Unknown Unknown Uncoded 01/31/22 16:01 Assessment & Plan Assessment & Plan (1) Schizoaffective disorder: Qualifiers: Schizoaffective disorder type: unspecified Qualified Code(s): F25.9 - Schizoaffective disorder, unspecified Status: Acute Code(s): F25.9 - Schizoaffective disorder, unspecified Assessment and Plan: 61 yo female, history of schizoaffective disorder, bipolar type. Pt found incoherent in [employer] with confusion, lability of mood, delusional content. Assisted to hospital with police. Today, labile, angry and significantly abusive on the unit with agitation, pacing, swearing, threatening, disrobing and confusion. Bharat's guardianship in place. Section 12[address] in place to 02/05. Plan: Pt has refused all diagnostics. Continue current regime, which follows Bharat's order. Pt asks for sleep medication, declines Trazodone. Ativan 1 mg HS prn insomnia Probable section 7/8 Collateral contacts. 02/04/22 Bharat's guardianship clarified. Latuda 40 mg daily. If pt refuses Olanzapine 10 mg IM Will file Section VII on 02/05. Attempt alliance building-currently pt is violent, psychotic, labile 02/06/22 Support pt in the milieu Educate regarding behaviors which place her at risk in community Section 7, court 02/12/22. 02/07/22: No med changes, pt declines to engage 02/11/22: [place] building attempts 02/12/22: Continue current regime. 02/13/22: Court 02/26/22. Continue current regime. 02/14 no changes to current regimen 02/15 no changes to current regimen 02/16/[address] 02/26/22 02/17/22 Pt isolated cont tx plan remains withdrawn not engaged . 02/19/22 Continue current plan 02/20/22 Increase Olanzapine to 7.5 mg bid 02/21 continue current tx plan 02/22 continue current tx plan 02/23 Pt tolerated a brief discussion of her thoughts regarding her court date and treatment planning before dismissing tw. Will continue this discussion on 02/24. 02/24/22 Declines discussion of upcoming court date. Requested continuation so we can continue to attempt to work with pt-Court date rescheduled for 03/12/22. 02/26/22 Discontinue Latuda Olanzapine 10 mg bid Will begin to address pt's verbalized concerns she identified today. 03/01/22 Improving. Continue current plan 03/02/22 Improved communication so interventions may be targeted. Continue current regime. 03/04/22 Lamictal 25 mg bid to begin 03/05/22. 03/06/22 Continue current regime. 03/07: continue current mgmt. 03/08: continue current mgmt. 03/09: more active today, better able to engage with MD. continue current mgmt. 03/13/22: Continue current regime 03/15/2022: No changes 03/16/2022: no changes I spent minutes with the patient and/or on the patient floor today, greater than?50% of which was spent counseling/coordinating care. Patient educated on: other Reason for contiued inpatient stay Substantial Risk for: harm to self, inability to function, rapid decompensation and med/psych decompensation
[2022-03-16 18:00] VITALS: BP 118/74; PULSE 104; RESP 16; TEMP 36.7
[2022-03-16] MEDS: Divalproex Sodium ER 250 MG TAB.ER.24H 750 MG PO (20:01)
[2022-03-17 06:00] VITALS: BP 119/72; PULSE 102; RESP 18; TEMP 36.6; O2SAT 96
[2022-03-17] MEDS: Benztropine Mesylate 0.5 MG TABLET PO ×2 (08:49→20:35)
[2022-03-17] MEDS: OLANZapine 7.5 MG TABLET 15 MG PO ×2 (08:49→20:35)
[2022-03-17] MEDS: buPROPion HCL 75 MG TABLET PO (08:50)
--- NOTE | 2022-03-17 12:48 | P.PNPSI_ITS ---
Subjective Subjective Date of Service: 03/17/22 Reason For Visit: Schizoaffective disorder-Bipolar type Subjective Notes: Section 7 Interim History: pt dysphoric some PI mixed with realistic concerns regarding returning home Medication Compliance: Yes Mental Status Exam Mental Status Exam Patient Appearance: Fatigued and Disheveled Patient Orientation: Person, Place, Time and Situation Level of Consciousness: Alert Patient Behavior: Appropriate, Talkative, Cooperative and Good Eye Contact Mood Description: Flat Affect Description: Flat Patient Cognition Impaired: No Ability to Follow Directions: Good Speech Pattern: Spontaneous Speech Memory Description: Intact Hallucinations: None Delusions: Not Present Thought Process: Rumination Thought Content: positive for Perseveration, positive for Suicidal Ideation (denies) and positive for Homicidal Ideation (denies) Depressive Symptoms: Sleeping More Than Usual, Loss of Int. in Activity, Increased Fatigue and Low Self Esteem Judgement: Fair Diagnostics Vital Signs (24Hr): Vital Signs - 24 hr 03/16/22 18:00 03/17/22 06:00 Temperature 98.1 F 97.9 F Pulse Rate 104 H 102 H Respiratory Rate 16 18 Blood Pressure 118/74 119/72 Pulse Oximetry 96 BMI result Body Mass Index 29.1 Labs Results: 03/07/22 07:14 03/07/22 07:14 Medications Medications Current Medications Acetaminophen (Acetaminophen 325 Mg Tablet) 650 mg PO Q6H PRN PRN Reason: Headache/Pain Mild Scale (1-3) Last Admin: 03/15/22 20:02 Dose: 650 mg Al Hydroxide/Mg Hydroxide (Magnesium Hydrox/Alum Hydrox 30 Ml Oral.Susp) 30 ml PO Q6H PRN PRN Reason: Heartburn/Nausea Benztropine Mesylate (Benztropine Mesylate 0.5 Mg Tablet) 0.5 mg PO BID [facility] Last Admin: 03/17/22 08:49 Dose: 0.5 mg Bupropion HCl (Bupropion Hcl 75 Mg Tablet) 75 mg PO DAILY [facility] Last Admin: 03/17/22 08:50 Dose: 75 mg Diphenhydramine HCl (Diphenhydramine Hcl 12.5 Mg/5 Ml Liquid) 50 mg PO BEDTIME PRN PRN Reason: insomnia Last Admin: 03/05/22 22:44 Dose: 50 mg Divalproex Sodium (Divalproex Sodium Er 250 Mg Tab.Er.24h) 750 mg PO BEDTIME [facility] Last Admin: 03/16/22 20:01 Dose: 750 mg Hydroxyzine HCl (Hydroxyzine Hcl 25 Mg Tablet) 25 mg PO Q6H PRN PRN Reason: Anxiety Last Admin: 03/13/22 23:41 Dose: 25 mg Ibuprofen (Ibuprofen 600 Mg Tablet) 600 mg PO Q8H PRN PRN Reason: knee pain Last Admin: 03/16/22 20:02 Dose: 600 mg Magnesium Hydroxide (Milk Of Magnesia 30 Ml Oral.Susp) 30 ml PO DAILY PRN PRN Reason: Constipation Olanzapine (Olanzapine Odt 10 Mg Tab.Rapdis) 10 mg TRANSLINGU Q8H PRN PRN Reason: psychotic agitation Olanzapine (Olanzapine 10 Mg Vial) 15 mg IM BID PRN PRN Reason: if pt refuses po zyprexa-bharat Olanzapine (Olanzapine 7.5 Mg Tablet) 15 mg PO BID [facility] Last Admin: 03/17/22 08:49 Dose: 15 mg Trazodone HCl (Trazodone Hcl 50 Mg Tablet) 50 mg PO BEDTIME PRN PRN Reason: Insomnia Last Admin: 03/13/22 23:41 Dose: 50 mg Allergies Allergies Allergy/AdvReac Type Severity Reaction Status Date / Time haloperidol [From Haldol] AdvReac Mild AGITATION Verified 01/31/22 16:01 From Inderal Allergy Intermediate IRREGULAR Uncoded 03/21/20 16:26 HEARTBEAT Haldol Allergy Unknown Agitated Uncoded 01/31/22 16:01 Propanolol Allergy Unknown Unknown Uncoded 01/31/22 16:01 Assessment & Plan Assessment & Plan (1) Schizoaffective disorder: Qualifiers: Schizoaffective disorder type: unspecified Qualified Code(s): F25.9 - Schizoaffective disorder, unspecified Status: Acute Code(s): F25.9 - Schizoaffective disorder, unspecified Assessment and Plan: 61 yo female, history of schizoaffective disorder, bipolar type. [facility], lability of mood, delusional content. Assisted to hospital with police. Today, labile, angry and significantly abusive on the unit with agitation, pacing, swearing, threatening, disrobing and confu vish. Bharat's guardianship in place. Section [address] in place to 02/05. Plan: Pt has refused all diagnostics. Continue current regime, which follows Bharat's order. Pt asks for sleep medication, declines Trazodone. Ativan 1 mg HS prn insomnia Probable section 7/ Collateral contacts. 02/04/22 Bharat's guardianship clarified. Latuda 40 mg daily. If pt refuses Olanzapine 10 mg IM Will file Section VII on 02/05. Attempt alliance building-currently pt is violent, psychotic, labile 02/06/22 Support pt in the milieu Educate regarding behaviors which place her at risk in community Section 7, court 02/12/22. 02/07/22: No med changes, pt declines to engage 02/11/22: [place] building attempts 02/12/22: Continue current regime. 02/13/22: Court 02/26/22. Continue current regime. 02/14 no changes to current regimen 02/15 no changes to current regimen 02/16/[address] 02/26/22 02/17/22 Pt isolated cont tx plan remains withdrawn not engaged . 02/19/22 Continue current plan 02/20/22 Increase Olanzapine to 7.5 mg bid 02/21 continue current tx plan 02/22 continue current tx plan 02/23 Pt tolerated a brief discussion of her thoughts regarding her court date and treatment planning before dismissing tw. Will continue this discussion on 02/24. 02/24/22 [address] discussion of upcoming court date. Requested continuation so we can continue to attempt to work with pt-Court date rescheduled for 03/12/22. 02/26/22 Discontinue Latuda Olanzapine 10 mg bid Will begin to address pt's verbalized concerns she identified today. 03/01/22 Improving. Continue current plan 03/02/22 Improved communication so interventions may be targeted. Continue current regime. 03/04/22 Lamictal 25 mg bid to begin 03/05/22. 03/06/22 Continue current regime. 03/07: continue current mgmt. 03/08: continue current mgmt. 03/09: more active today, better able to engage with MD. continue current mgmt. 03/13/22: Continue current regime 03/15/2022: No changes 03/17/22 continue wellbutrin olanzapinewas engaged I spent minutes with the patient and/or on the patient floor today, gr eater than?50% of which was spent counseling/coordinating care. Reason for contiued inpatient stay Substantial Risk for: harm to self and rapid decompensation
[2022-03-17] MEDS: Divalproex Sodium ER 250 MG TAB.ER.24H 750 MG PO (20:36)
[2022-03-18] MEDS: Benztropine Mesylate 0.5 MG TABLET PO ×2 (08:07→20:42)
[2022-03-18] MEDS: OLANZapine 7.5 MG TABLET 15 MG PO ×2 (08:07→20:42)
[2022-03-18] MEDS: buPROPion HCL 75 MG TABLET PO (08:07)
[2022-03-18 10:03] VITALS: BP 126/81; PULSE 110; RESP 16; TEMP 36.7; O2SAT 98
--- NOTE | 2022-03-18 16:39 | HO.PSYCHPN ---
Subjective Subjective Date of Service: 03/18/22 Reason For Visit: Schizoaffective disorder-Bipolar type Subjective Notes: Section 7 Interim History: Patient generally less agitated less depressed. Still remains psychotically preoccupied intermittent hallucinations and delusional material but seems less preoccupied Medication Compliance: Yes Mental Status Exam Mental Status Exam Patient Appearance: Fatigued and Disheveled Patient Orientation: Person, Place, Time and Situation Level of Consciousness: Alert Patient Behavior: Appropriate, Talkative, Cooperative and Good Eye Contact Mood Description: Flat Affect Description: Flat Patient Cognition Impaired: No Ability to Follow Directions: Good Speech Pattern: Spontaneous Speech Memory Description: Intact Hallucinations: None Delusions: Not Present Thought Process: Rumination Thought Content: positive for Perseveration, positive for Suicidal Ideation (denies) and positive for Homicidal Ideation (denies) Depressive Symptoms: Sleeping More Than Usual, Loss of Int. in Activity, Increased Fatigue and Low Self Esteem Judgement: Fair Diagnostics Vital Signs (24Hr): Vital Signs - 24 hr 03/18/22 10:03 Temperature 98.1 F Pulse Rate 110 H Respiratory Rate 16 Blood Pressure 126/81 Pulse Oximetry 98 Oxygen Delivery Method Room Air BMI result Body Mass Index 29.1 Labs Results: 03/07/22 07:14 03/07/22 07:14 Medications Medications Current Medications Acetaminophen (Acetaminophen 325 Mg Tablet) 650 mg PO Q6H PRN PRN Reason: Headache/Pain Mild Scale (1-3) Last Admin: 03/15/22 20:02 Dose: 650 mg Al Hydroxide/Mg Hydroxide (Magnesium Hydrox/Alum Hydrox 30 Ml Oral.Susp) 30 ml PO Q6H PRN PRN Reason: Heartburn/Nausea Benztropine Mesylate (Benztropine Mesylate 0.5 Mg Tablet) 0.5 mg PO BID [facility] Last Admin: 03/18/22 08:07 Dose: 0.5 mg Bupropion HCl (Bupropion Hcl 75 Mg Tablet) 75 mg PO DAILY [facility] Last Admin: 03/18/22 08:07 Dose: 75 mg Diphenhydramine HCl (Diphenhydramine Hcl 12.5 Mg/5 Ml Liquid) 50 mg PO BEDTIME PRN PRN Reason: insomnia Last Admin: 03/05/22 22:44 Dose: 50 mg Divalproex Sodium (Divalproex Sodium Er 250 Mg Tab.Er.24h) 750 mg PO BEDTIME [facility] Last Admin: 03/17/22 20:36 Dose: 750 mg Hydroxyzine HCl (Hydroxyzine Hcl 25 Mg Tablet) 25 mg PO Q6H PRN PRN Reason: Anxiety Last Admin: 03/13/22 23:41 Dose: 25 mg Ibuprofen (Ibuprofen 600 Mg Tablet) 600 mg PO Q8H PRN PRN Reason: knee pain Last Admin: 03/16/22 20:02 Dose: 600 mg Magnesium Hydroxide (Milk Of Magnesia 30 Ml Oral.Susp) 30 ml PO DAILY PRN PRN Reason: Constipation Olanzapine (Olanzapine Odt 10 Mg Tab.Rapdis) 10 mg TRANSLINGU Q8H PRN PRN Reason: psychotic agitation Olanzapine (Olanzapine 10 Mg Vial) 15 mg IM BID PRN PRN Reason: if pt refuses po zyprexa-bharat Olanzapine (Olanzapine 7.5 Mg Tablet) 15 mg PO BID [facility] Last Admin: 03/18/22 08:07 Dose: 15 mg Trazodone HCl (Trazodone Hcl 50 Mg Tablet) 50 mg PO BEDTIME PRN PRN Reason: Insomnia Last Admin: 03/13/22 23:41 Dose: 50 mg Allergies Allergies Allergy/AdvReac Type Severity Reaction Status Date / Time haloperidol [From Haldol] AdvReac Mild AGITATION Verified 01/31/22 16:01 From Inderal Allergy Intermediate IRREGULAR Uncoded 03/21/20 16:26 HEARTBEAT Haldol Allergy Unknown Agitated Uncoded 01/31/22 16:01 Propanolol Allergy Unknown Unknown Uncoded 01/31/22 16:01 Assessment & Plan Assessment & Plan (1) Schizoaffective disorder: Qualifiers: Schizoaffective disorder type: unspecified Qualified Code(s): F25.9 - Schizoaffective disorder, unspecified Status: Acute Code(s): F25.9 - Schizoaffective disorder, unspecified Assessment and Plan: 61 yo female, history of schizoaffective disorder, bipolar type. Pt found incoherent in [employer] with confusion, lability of mood, delusional content. Assisted to hospital with police. Today, labile, angry and significantly abusive on the unit with agitation, pacing, swearing, threatening, disrobing and confusion. Bharat's guardianship in place. Section 12[address] in place to 02/05. Plan: Pt has refused all diagnostics. Continue current regime, which follows Bharat's order. Pt asks for sleep medication, declines Trazodone. Ativan 1 mg HS prn insomnia Probable section 7/ Collateral contacts. 02/04/22 Bharat's guardianship clarified. Latuda 40 mg daily. If pt refuses Olanzapine 10 mg IM Will file Section VII on 02/05. Attempt alliance building-currently pt is violent, psychotic, labile 02/06/22 Support pt in the milieu Educate regarding behaviors which place her at risk in community Section 7, court 02/12/22. 02/07/22: No med changes, pt declines to engage 02/11/22: [place] building attempts 02/12/22: Continue current regime. 02/13/22: Court 02/26/22. Continue current regime. 02/14 no changes to current regimen 02/15 no changes to current regimen 02/16/[address] 02/26/22 02/17/22 Pt isolated cont tx plan remains withdrawn not engaged . 02/19/22 Continue current plan 02/20/22 Increase Olanzapine to 7.5 mg bid 02/21 continue current tx plan 02/22 continue current tx plan 02/23 Pt tolerated a brief discussion of her thoughts regarding her court date and treatment planning before dismissing tw. Will continue this discussion on 02/24. 02/24/22 [address] discussion of upcoming court date. Requested continuation so we can continue to attempt to work with pt-Court date rescheduled for 03/12/22. 02/26/22 Discontinue Latuda Olanzapine 10 mg bid Will begin to address pt's verbalized concerns she identified today. 03/01/22 Improving. Continue current plan 03/02/22 Improved communication so interventions may be targeted. Continue current regime. 03/04/22 Lamictal 25 mg bid to begin 03/05/22. 03/06/22 Continue current regime. 03/07: continue current mgmt. 03/08: continue current mgmt. 03/09: more active today, better able to engage with MD. continue current mgmt. 03/13/22: Continue current regime 03/15/2022: No changes 03/17/22 continue wellbutrin olanzapinewas engaged 03/18/22 Pt seen in f/u more forthcoming remains with psychotic process but improved continue Wellbutrin olanzapine Depakote I spent minutes with the patient and/or on the patient floor today, greater than?50% of which was spent counseling/coordinating care. Reason for contiued inpatient stay Substantial Risk for: inability to function and rapid decompensation
[2022-03-18 18:00] VITALS: BP 124/82; PULSE 122; RESP 18; TEMP 536.2; TEMP 997.2; O2SAT 97
[2022-03-18] MEDS: Divalproex Sodium ER 250 MG TAB.ER.24H 750 MG PO (20:42)
[2022-03-19 07:00] VITALS: BMI 30.2
[2022-03-19] MEDS: OLANZapine 7.5 MG TABLET 15 MG PO ×2 (08:00→20:04)
[2022-03-19] MEDS: Benztropine Mesylate 0.5 MG TABLET PO ×2 (08:00→20:05)
[2022-03-19] MEDS: buPROPion HCL 75 MG TABLET PO (08:01)
[2022-03-19 08:47] VITALS: RESP 18
[2022-03-19] MEDS: Divalproex Sodium ER 250 MG TAB.ER.24H 750 MG PO (20:04)
[2022-03-19] MEDS: Ibuprofen 600 MG TABLET PO (20:04)
[2022-03-19] MEDS: traZODone HCL 50 MG TABLET PO (20:04)
--- NOTE | 2022-03-20 00:15 | P.PNPSI_ITS ---
Subjective Subjective Date of Service: 03/19/22 Reason For Visit: Schizoaffective disorder-Bipolar type Subjective Notes: Section 7 Healthcare Proxy: No Interim History: Patient with some residual paranoia and dysphoria. Somewhat guarded. Not combative eating and drinking okay Medication Compliance: Yes Mental Status Exam Mental Status Exam Narrative: r Patient Appearance: Fatigued and Disheveled Patient Orientation: Person, Place, Time and Situation Level of Consciousness: Alert Patient Behavior: Appropriate, Talkative, Cooperative and Good Eye Contact Mood Description: Flat Affect Description: Flat Patient Cognition Impaired: No Ability to Follow Directions: Good Speech Pattern: Spontaneous Speech Memory Description: Intact Thought Content: positive for Preoccupation, negative for Suicidal Ideation or negative for Homicidal Ideation Depressive Symptoms: Increased Anxiety, Increased Irritability and Increased Fatigue Abnormal Motor Activity Signs and Symptoms: Psychomotor Retardation Diagnostics Vital Signs (24Hr): Vital Signs - 24 hr 03/19/22 08:47 Respiratory Rate 18 BMI result Body Mass Index 30.2 Labs Results: 03/07/22 07:14 03/07/22 07:14 Medications Medications Current Medications Acetaminophen (Acetaminophen 325 Mg Tablet) 650 mg PO Q6H PRN PRN Reason: Headache/Pain Mild Scale (1-3) Last Admin: 03/15/22 20:02 Dose: 650 mg Al Hydroxide/Mg Hydroxide (Magnesium Hydrox/Alum Hydrox 30 Ml Oral.Susp) 30 ml PO Q6H PRN PRN Reason: Heartburn/Nausea Benztropine Mesylate (Benztropine Mesylate 0.5 Mg Tablet) 0.5 mg PO BID [facility] Last Admin: 03/19/22 20:05 Dose: 0.5 mg Bupropion HCl (Bupropion Hcl 75 Mg Tablet) 75 mg PO DAILY [facility] Last Admin: 03/19/22 08:01 Dose: 75 mg Diphenhydramine HCl (Diphenhydramine Hcl 12.5 Mg/5 Ml Liquid) 50 mg PO BEDTIME PRN PRN Reason: insomnia Last Admin: 03/05/22 22:44 Dose: 50 mg Divalproex Sodium (Divalproex Sodium Er 250 Mg Tab.Er.24h) 750 mg PO BEDTIME [facility] Last Admin: 03/19/22 20:04 Dose: 750 mg Hydroxyzine HCl (Hydroxyzine Hcl 25 Mg Tablet) 25 mg PO Q6H PRN PRN Reason: Anxiety Last Admin: 03/13/22 23:41 Dose: 25 mg Ibuprofen (Ibuprofen 600 Mg Tablet) 600 mg PO Q8H PRN PRN Reason: knee pain Last Admin: 03/19/22 20:04 Dose: 600 mg Magnesium Hydroxide (Milk Of Magnesia 30 Ml Oral.Susp) 30 ml PO DAILY PRN PRN Reason: Constipation Olanzapine (Olanzapine Odt 10 Mg Tab.Rapdis) 10 mg TRANSLINGU Q8H PRN PRN Reason: psychotic agitation Olanzapine (Olanzapine 10 Mg Vial) 15 mg IM BID PRN PRN Reason: if pt refuses po zyprexa-bharat Olanzapine (Olanzapine 7.5 Mg Tablet) 15 mg PO BID [facility] Last Admin: 03/19/22 20:04 Dose: 15 mg Trazodone HCl (Trazodone Hcl 50 Mg Tablet) 50 mg PO BEDTIME PRN PRN Reason: Insomnia Last Admin: 03/19/22 20:04 Dose: 50 mg Allergies Allergies Allergy/AdvReac Type Severity Reaction Status Date / Time haloperidol [From Haldol] AdvReac Mild AGITATION Verified 01/31/22 16:01 From Inderal Allergy Intermediate IRREGULAR Uncoded 03/21/20 16:26 HEARTBEAT Haldol Allergy Unknown Agitated Uncoded 01/31/22 16:01 Propanolol Allergy Unknown Unknown Uncoded 01/31/22 16:01 Assessment & Plan Assessment & Plan (1) Schizoaffective disorder: Qualifiers: Schizoaffective disorder type: unspecified Qualified Code(s): F25.9 - Schizoaffective disorder, unspecified Status: Acute Code(s): F25.9 - Schizoaffective disorder, unspecified Assessment and Plan: 61 yo female, history of schizoaffective disorder, bipolar type. Pt found incoherent in [facility] with confusion, lability of mood, delusional content. Assisted to hospital with police. Today, labile, angry and significantly abusive on the unit with agitation, pacing, swearing, threatening, disrobing and confusion. Bharat's guardianship in place. Section 12B in place to 02/05. Plan: Pt has refused all diagnostics. Continue current regime, which follows Bharat's order. Pt asks for sleep medication, declines Trazodone. Ativan 1 mg HS prn insomnia Probable section 7/8 Collateral contacts. 02/04/22 Bharat's guardianship clarified. Latuda 40 mg daily. If pt refuses Olanzapine 10 mg IM Will file Section VII on 02/05. Attempt alliance building-currently pt is violent, psychotic, labile 02/06/22 Support pt in the milieu Educate regarding behaviors which place her at risk in community Section 7, court 02/12/22. 02/07/22: No med changes, pt declines to engage 02/11/22: [place] building attempts 02/12/22: Continue current regime. 02/13/22: Court 02/26/22. Continue current regime. 02/14 no changes to current regimen 02/15 no changes to current regimen 02/16/[address] 02/26/22 02/17/22 Pt isolated cont tx plan remains withdrawn not engaged . 02/19/22 Continue current plan 02/20/22 Increase Olanzapine to 7.5 mg bid 02/21 continue current tx plan 02/22 continue current tx plan 02/23 Pt tolerated a brief discussion of her thoughts regarding her court date and treatment planning before dismissing tw. Will continue this discussion on 02/24. 02/24/22 Decl[address] discussion of upcoming court date. Requested continuation so we can continue to attempt to work with pt-Court date rescheduled for 03/12/22. 02/26/22 Discontinue Latuda Olanzapine 10 mg bid Will begin to address pt's verbalized concerns she identified today. 03/01/22 Improving. Continue current plan 03/02/22 Improved communication so interventions may be targeted. Continue current regime. 03/04/22 Lamictal 25 mg bid to begin 03/05/22. 03/06/22 Continue current regime. 03/07: continue current mgmt. 03/08: continue current mgmt. 03/09: more active today, better able to engage with MD. continue current mgmt. 03/13/22: Continue current regime 03/15/2022: No changes 03/17/22 continue wellbutrin olanzapinewas engaged 03/18/22 Pt seen in f/u more forthcoming remains with psychotic process but improved continue Wellbutrin olanzapine Depakote 03/20/22 Pt withdrawn dysphoric guarded cont olanzapine I spent minutes with the patient and/or on the patient floor today, greater than?50% of which was spent counseling/coordinating care. Reason for contiued inpatient stay Substantial Risk for: harm to self, inability to function and rapid decompensation
[2022-03-20] MEDS: buPROPion HCL 75 MG TABLET PO (09:03)
[2022-03-20] MEDS: OLANZapine 7.5 MG TABLET 15 MG PO ×2 (09:03→19:38)
[2022-03-20] MEDS: Benztropine Mesylate 0.5 MG TABLET PO ×2 (09:03→19:38)
[2022-03-20 09:19] VITALS: BP 111/56
[2022-03-20 17:06] VITALS: BP 141/77; PULSE 88; RESP 18; TEMP 36.4; O2SAT 95
--- NOTE | 2022-03-20 17:11 | HO.PSYCHPN ---
Subjective Subjective Date of Service: 03/20/22 Reason For Visit: Schizoaffective disorder-Bipolar type Interim History: Discussed with team. Pt asked about zyprexa going up to 30 mg, informed it is already at that total daily dose. She asked about depakote going up, hx of taking it in the past but trial was brief and she did not notice a benefit. Will obtain VPA level and she will follow up with weekend provider for possible dose adjustment. No other questions or concerns. Pt feels safe. Appears paranoid but no behavioral concerns. Mostly withdrawn in her room, sleeping, reading. Medication Compliance: Yes Side effects from medications: No Attending Groups: No Review of Systems Acute medical concerns: No Medical Review of Systems: unchanged Mental Status Exam Mental Status Exam Narrative: Patient Appearance: Fatigued and Disheveled Patient Orientation: Person, Place, Time and Situation Level of Consciousness: Alert Patient Behavior: Appropriate, Talkative, Cooperative and Good Eye Contact Mood Description: Flat Affect Description: Flat Patient Cognition Impaired: No Ability to Follow Directions: Good Speech Pattern: Spontaneous Speech Memory Description: Intact Hallucinations: None Delusions: Not Present Thought Process: Rumination Thought Content: positive for Perseveration, positive for Suicidal Ideation (denies) and positive for Homicidal Ideation (denies) Depressive Symptoms: Sleeping More Than Usual, Loss of Int. in Activity, Increased Fatigue and Low Self Esteem Judgement: Fair Diagnostics Vital Signs (24Hr): Vital Signs - 24 hr 03/20/22 09:19 03/20/22 17:06 Temperature 97.6 F Pulse Rate 88 Respiratory Rate 18 Blood Pressure 111/56 L 141/77 H Pulse Oximetry 95 Oxygen Delivery Method Room Air BMI result Body Mass Index 30.2 Labs Results: 03/07/22 07:14 03/07/22 07:14 Medications Medications Current Medications Acetaminophen (Acetaminophen 325 Mg Tablet) 650 mg PO Q6H PRN PRN Reason: Headache/Pain Mild Scale (1-3) Last Admin: 03/15/22 20:02 Dose: 650 mg Al Hydroxide/Mg Hydroxide (Magnesium Hydrox/Alum Hydrox 30 Ml Oral.Susp) 30 ml PO Q6H PRN PRN Reason: Heartburn/Nausea Benztropine Mesylate (Benztropine Mesylate 0.5 Mg Tablet) 0.5 mg PO BID [facility] Last Admin: 03/20/22 09:03 Dose: 0.5 mg Bupropion HCl (Bupropion Hcl 75 Mg Tablet) 75 mg PO DAILY [facility] Last Admin: 03/20/22 09:03 Dose: 75 mg Diphenhydramine HCl (Diphenhydramine Hcl 12.5 Mg/5 Ml Liquid) 50 mg PO BEDTIME PRN PRN Reason: insomnia Last Admin: 03/05/22 22:44 Dose: 50 mg Divalproex Sodium (Divalproex Sodium Er 250 Mg Tab.Er.24h) 750 mg PO BEDTIME [facility] Last Admin: 03/19/22 20:04 Dose: 750 mg Hydroxyzine HCl (Hydroxyzine Hcl 25 Mg Tablet) 25 mg PO Q6H PRN PRN Reason: Anxiety Last Admin: 03/13/22 23:41 Dose: 25 mg Ibuprofen (Ibuprofen 600 Mg Tablet) 600 mg PO Q8H PRN PRN Reason: knee pain Last Admin: 03/19/22 20:04 Dose: 600 mg Magnesium Hydroxide (Milk Of Magnesia 30 Ml Oral.Susp) 30 ml PO DAILY PRN PRN Reason: Constipation Olanzapine (Olanzapine Odt 10 Mg Tab.Rapdis) 10 mg TRANSLINGU Q8H PRN PRN Reason: psychotic agitation Olanzapine (Olanzapine 10 Mg Vial) 15 mg IM BID PRN PRN Reason: if pt refuses po zyprexa-bharat Olanzapine (Olanzapine 7.5 Mg Tablet) 15 mg PO BID [facility] Last Admin: 03/20/22 09:03 Dose: 15 mg Trazodone HCl (Trazodone Hcl 50 Mg Tablet) 50 mg PO BEDTIME PRN PRN Reason: Insomnia Last Admin: 03/19/22 20:04 Dose: 50 mg Allergies Allergies Allergy/AdvReac Type Severity Reaction Status Date / Time haloperidol [From Haldol] AdvReac Mild AGITATION Verified 01/31/22 16:01 propranolol AdvReac irregular Verified 03/20/22 10:50 heartbeat Assessment & Plan Assessment & Plan (1) Schizoaffective disorder: Qualifiers: Schizoaffective disorder type: unspecified Qualified Code(s): F25.9 - Schizoaffective disorder, unspecified Status: Acute Code(s): F25.9 - Schizoaffective disorder, unspecified Assessment and Plan: 61 yo female, history of schizoaffective disorder, bipolar type. Pt found incoherent in [employer] with confusion, lability of mood, delusional content. Assisted to hospital with police. Today, labile, angry and significantly abusive on the unit with agitation, pacing, swearing, threatening, disrobing and confusion. Bharat's guardianship in place. Section 12B in place to 02/05. Plan: Pt has refused all diagnostics. Continue current regime, which follows Bharat's order. Pt asks for sleep medication, declines Trazodone. Ativan 1 mg HS prn insomnia Probable section 7/ Collateral contacts. 02/04/22 Bharat's guardianship clarified. Latuda 40 mg daily. If pt refuses Olanzapine 10 mg IM Will file Section VII on 02/05. Attempt alliance building-currently pt is violent, psychotic, labile 02/06/22 Support pt in the milieu Educate regarding behaviors which place her at risk in community Section 7, court 02/12/22. 02/07/22: No med changes, pt declines to engage 02/11/22: [place] building attempts 02/12/22: Continue current regime. 02/13/22: Court 02/26/22. Continue current regime. 02/14 no changes to current regimen 02/15 no changes to current regimen 02/16/[address] 02/26/22 02/17/22 Pt isolated cont tx plan remains withdrawn not engaged . 02/19/22 Continue current plan 02/20/22 Increase Olanzapine to 7.5 mg bid 02/21 continue current tx plan 02/22 continue current tx plan 02/23 Pt tolerated a brief discussion of her thoughts regarding her court date and treatment planning before dismissing tw. Will continue this discussion on 02/24. 02/24/[address] of upcoming court date. Requested continuation so we can continue to attempt to work with pt-Court date rescheduled for 03/12/22. 02/26/22 Discontinue Latuda Olanzapine 10 mg bid Will begin to address pt's verbalized concerns she identified today. 03/01/22 Improving. Continue current plan 03/02/22 Improved communication so interventions may be targeted. Continue current regime. 03/04/22 Lamictal 25 mg bid to begin 03/05/22. 03/06/22 Continue current regime. 03/07: continue current mgmt. 03/08: continue current mgmt. 9/5: more active today, better able to engage with MD. continue current mgmt. 03/13/22: Continue current regime 03/15/2022: No changes 03/16/2022: no changes 03/20/2022: obtain VPA level I spent minutes with the patient and/or on the patient floor today, greater than?50% of which was spent counseling/coordinating care. Patient educated on: diagnosis, medication risk/benefits and therapeutic strategies Reason for contiued inpatient stay Substantial Risk for: rapid decompensation and med/psych decompensation
[2022-03-20] MEDS: Divalproex Sodium ER 250 MG TAB.ER.24H 750 MG PO (19:38)
[2022-03-20] MEDS: Ibuprofen 600 MG TABLET PO (23:52)
[2022-03-20] MEDS: diphenhydrAMINE HCl 12.5 MG/5 ML LIQUID 50 MG PO (23:53)
[2022-03-21 06:00] VITALS: BP 116/59; PULSE 104; RESP 18; TEMP 36.7; O2SAT 96
[2022-03-21] MEDS: buPROPion HCL 75 MG TABLET PO (09:02)
[2022-03-21] MEDS: OLANZapine 7.5 MG TABLET 15 MG PO ×2 (09:02→19:42)
[2022-03-21] MEDS: Benztropine Mesylate 0.5 MG TABLET PO ×2 (09:02→19:42)
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
[2022-03-21] MEDS: Divalproex Sodium ER 500 MG TAB.ER.24H 1000 MG PO (19:42)
[2022-03-22 06:00] VITALS: BP 128/64; PULSE 100; RESP 18; TEMP 36.7; O2SAT 96
[2022-03-22] MEDS: buPROPion HCL 75 MG TABLET PO (09:45)
[2022-03-22] MEDS: OLANZapine 7.5 MG TABLET 15 MG PO ×2 (09:45→20:08)
[2022-03-22] MEDS: Benztropine Mesylate 0.5 MG TABLET PO ×2 (09:45→20:08)
--- NOTE | 2022-03-22 14:50 | P.PNPSI_ITS ---
Subjective Subjective Date of Service: 03/22/22 Reason For Visit: Schizoaffective disorder-Bipolar type Interim History: Discussed with team. Patient was seen in room. She reports she is feeling anxious and depressed. She has not felt any change after increasing the dose of Depakote last night however understands that this may take some time. She is sleeping well. She has no other concerns. Denies suicidal ideation hallucinations today. Review of Systems Review of Systems Unremarkable Yes Unobtainable due to mental status Reports behavioral changes, Reports confusion and Reports memory loss Psychiatric: Reports anxiety, Reports behavioral changes, Reports confusion, Reports depression, Reports difficulty concentrating, Reports auditory hallucinations, Reports hopelessness, Reports irritability, Reports anhedonia, Reports memory loss, Reports mood swings, Reports panic attacks, Reports paranoia, Reports visual hallucinations and Reports hallucinations Mental Status Exam Mental Status Exam Narrative: Patient Appearance: Fatigued and Disheveled Patient Orientation: Person, Place, Time and Situation Level of Consciousness: Alert Patient Behavior: Appropriate, Talkative, Cooperative and Good Eye Contact Mood Description: Flat Affect Description: Flat Patient Cognition Impaired: No Ability to Follow Directions: Good Speech Pattern: Spontaneous Speech Memory Description: Intact Hallucinations: None Delusions: Not Present Thought Process: Rumination Thought Content: positive for Perseveration, positive for Suicidal Ideation (denies) and positive for Homicidal Ideation (denies) Depressive Symptoms: Sleeping More Than Usual, Loss of Int. in Activity, Increased Fatigue and Low Self Esteem Judgement: Fair Patient Appearance: Fatigued and Disheveled Patient Orientation: Person, Place, Time and Situation Level of Consciousness: Alert Patient Behavior: Appropriate, Talkative, Cooperative and Good Eye Contact Mood Description: Flat Affect Description: Flat Patient Cognition Impaired: No Ability to Follow Directions: Good Speech Pattern: Spontaneous Speech Memory Description: Intact Diagnostics Vital Signs (24Hr): Vital Signs - 24 hr 03/22/22 06:00 03/22/22 18:00 Temperature 98.0 F Pulse Rate 100 Respiratory Rate 18 18 Blood Pressure 128/64 Pulse Oximetry 96 BMI result Body Mass Index 30.2 Labs Results: 03/07/22 07:14 03/07/22 07:14 Labs: Laboratory Results - last 48 hr 03/21/22 09:06 Valproic Acid 50.0 Medications Medications Current Medications Acetaminophen (Acetaminophen 325 Mg Tablet) 650 mg PO Q6H PRN PRN Reason: Headache/Pain Mild Scale (1-3) Last Admin: 03/15/22 20:02 Dose: 650 mg Al Hydroxide/Mg Hydroxide (Magnesium Hydrox/Alum Hydrox 30 Ml Oral.Susp) 30 ml PO Q6H PRN PRN Reason: Heartburn/Nausea Benztropine Mesylate (Benztropine Mesylate 0.5 Mg Tablet) 0.5 mg PO BID [facility] Last Admin: 03/22/22 20:08 Dose: 0.5 mg Bupropion HCl (Bupropion Hcl 75 Mg Tablet) 75 mg PO DAILY [facility] Last Admin: 03/22/22 09:45 Dose: 75 mg Diphenhydramine HCl (Diphenhydramine Hcl 12.5 Mg/5 Ml Liquid) 50 mg PO BEDTIME PRN PRN Reason: insomnia Last Admin: 03/20/22 23:53 Dose: 50 mg Divalproex Sodium (Divalproex Sodium Er 500 Mg Tab.Er.24h) 1,000 mg PO BEDTIME [facility] Last Admin: 03/22/22 20:08 Dose: 1,000 mg Hydroxyzine HCl (Hydroxyzine Hcl 25 Mg Tablet) 25 mg PO Q6H PRN PRN Reason: Anxiety Last Admin: 03/13/22 23:41 Dose: 25 mg Ibuprofen (Ibuprofen 600 Mg Tablet) 600 mg PO Q8H PRN PRN Reason: knee pain Last Admin: 03/20/22 23:52 Dose: 600 mg Magnesium Hydroxide (Milk Of Magnesia 30 Ml Oral.Susp) 30 ml PO DAILY PRN PRN Reason: Constipation Olanzapine (Olanzapine Odt 10 Mg Tab.Rapdis) 10 mg TRANSLINGU Q8H PRN PRN Reason: psychotic agitation Olanzapine (Olanzapine 10 Mg Vial) 15 mg IM BID PRN PRN Reason: if pt refuses po zyprexsteve-bharat Olanzapine (Olanzapine 7.5 Mg Tablet) 15 mg PO BID [facility] Last Admin: 03/22/22 20:08 Dose: 15 mg Trazodone HCl (Trazodone Hcl 50 Mg Tablet) 50 mg PO BEDTIME PRN PRN Reason: Insomnia Last Admin: 03/19/22 20:04 Dose: 50 mg Allergies Allergies Allergy/AdvReac Type Severity Reaction Status Date / Time haloperidol [From Haldol] AdvReac Mild AGITATION Verified 01/31/22 16:01 propranolol AdvReac irregular Verified 03/20/22 10:50 heartbeat Assessment & Plan Assessment & Plan (1) Schizoaffective disorder: Qualifiers: Schizoaffective disorder type: unspecified Qualified Code(s): F25.9 - Schizoaffective disorder, unspecified Status: Acute Code(s): F25.9 - Schizoaffective disorder, unspecified Assessment and Plan: 61 yo female, history of schizoaffective disorder, bipolar type. Pt found incoherent in [employer] with confusion, lability of mood, delusional content. Assisted to hospital with police. Today, labile, angry and significantly abusive on the unit with agitation, pacing, swearing, threatening, disrobing and confusion. Bharat's guardianship in place. Section [address] in place to 02/05. Plan: Pt has refused all diagnostics. Continue current regime, which follows Bharat's order. Pt asks for sleep medication, declines Trazodone. Ativan 1 mg HS prn insomnia Probable section 01/09 Collateral contacts. 02/04/22 Bharat's guardianship clarified. Latuda 40 mg daily. If pt refuses Olanzapine 10 mg IM Will file Section VII on 02/05. Attempt alliance building-currently pt is violent, psychotic, labile 02/06/22 Support pt in the milieu Educate regarding behaviors which place her at risk in community Section 7, court 02/12/22. 02/07/22: No med changes, pt declines to engage 02/11/22: [place] building attempts 02/12/22: Continue current regime. 02/13/22: Court 02/26/22. Continue current regime. 02/14 no changes to current regimen 02/15 no changes to current regimen 02/16/[address] 02/26/22 02/17/22 Pt isolated cont tx plan remains withdrawn not engaged . 02/19/22 Continue current plan 02/20/22 Increase Olanzapine to 7.5 mg bid 02/21 continue current tx plan 02/22 continue current tx plan 02/23 Pt tolerated a brief discussion of her thoughts regarding her court date and treatment planning before dismissing tw. Will continue this discussion on 02/24. 02/24/22 Decl[address] discussion of upcoming court date. Requested continuation so we can continue to attempt to work with pt-Court date rescheduled for 03/12/22. 02/26/22 Discontinue Latuda Olanzapine 10 mg bid Will begin to address pt's verbalized concerns she identified today. 03/01/22 Improving. Continue current plan 03/02/22 Improved communication so interventions may be targeted. Continue current regime. 03/04/22 Lamictal 25 mg bid to begin 03/05/22. 03/06/22 Continue current regime. 03/07: continue current mgmt. 03/08: continue current mgmt. 03/09: more active today, better able to engage with MD. continue current mgmt. 03/13/22: Continue current regime 03/15/2022: No changes 03/16/2022: no changes 03/20/2022: obtain VPA level 03/21: Increase Depakote to 1000 mg HS. 03/22/2022: Continue current treatment plan. I spent minutes with the patient and/or on the patient floor today, greater than?50% of which was spent counseling/coordinating care. Reason for contiued inpatient stay Substantial Risk for: inability to function and rapid decompensation
--- NOTE | 2022-03-22 17:11 | PC.NURSE ---
Addendum entered by Candelaria Hamilton RN 03/22/22 18:23: patient placed on 5 minutes safety checks with [facility]B Original Note: PT reports increased passive SI today without a plan. PT reports at this moment she feels safe and will seek out staff if the feeling returns.
[2022-03-22 18:00] VITALS: RESP 18
[2022-03-22] MEDS: Divalproex Sodium ER 500 MG TAB.ER.24H 1000 MG PO (20:08)
[2022-03-23 06:00] VITALS: BP 125/91; PULSE 100; RESP 16; TEMP 36.8; O2SAT 96
[2022-03-23] MEDS: buPROPion HCL 75 MG TABLET PO (09:40)
[2022-03-23] MEDS: OLANZapine 7.5 MG TABLET 15 MG PO ×2 (09:43→19:38)
[2022-03-23] MEDS: Benztropine Mesylate 0.5 MG TABLET PO ×2 (09:43→19:39)
--- NOTE | 2022-03-23 13:16 | HO.PSYCHPN ---
Subjective Subjective Date of Service: 03/23/22 Reason For Visit: Schizoaffective disorder-Bipolar type Subjective Notes: Section 7 Interim History: The patient has been more withdrawn internally preoccupied irritable. Not forthcoming regarding her internal state. Reportedly and had transient suicidal thoughts which she is currently denying. But quite irritable hostile reactive overwhelmed by her internal state and feeling that she cannot move back to her apartment Medication Compliance: Yes Attending Groups: No Review of Systems Acute medical concerns: No Mental Status Exam Mental Status Exam Narrative: Mental Status Exam Narrative: Appearance: Disheveled Behavior: Posturing irritable eventually aggressive verbally psychomotor: Periods of agitation Speech: Thought proccess hopeless helpless ruminating thought blocking Thought content: Despair over not being able to return home Mood: Depressed irritable Affect: Irritable SI:denies denies at present HI:denies VH/AH:none Delusions: Paranoid concerns Insight/judgment: Impaired became aggressive threatening limited insight guarded evasive Memory/cog: Diagnostics Vital Signs (24Hr): Vital Signs - 24 hr 03/22/22 18:00 03/23/22 06:00 Temperature 98.3 F Pulse Rate 100 Respiratory Rate 18 16 Blood Pressure 125/91 H Pulse Oximetry 96 Oxygen Delivery Method Room Air BMI result Body Mass Index 30.2 Labs Results: 03/07/22 07:14 03/07/22 07:14 Medications Medications Current Medications Acetaminophen (Acetaminophen 325 Mg Tablet) 650 mg PO Q6H PRN PRN Reason: Headache/Pain Mild Scale (1-3) Last Admin: 03/15/22 20:02 Dose: 650 mg Al Hydroxide/Mg Hydroxide (Magnesium Hydrox/Alum Hydrox 30 Ml Oral.Susp) 30 ml PO Q6H PRN PRN Reason: Heartburn/Nausea Benztropine Mesylate (Benztropine Mesylate 0.5 Mg Tablet) 0.5 mg PO BID [facility] Last Admin: 03/23/22 09:43 Dose: 0.5 mg Bupropion HCl (Bupropion Hcl 75 Mg Tablet) 75 mg PO DAILY [facility] Last Admin: 03/23/22 09:40 Dose: 75 mg Diphenhydramine HCl (Diphenhydramine Hcl 12.5 Mg/5 Ml Liquid) 50 mg PO BEDTIME PRN PRN Reason: insomnia Last Admin: 03/20/22 23:53 Dose: 50 mg Divalproex Sodium (Divalproex Sodium Er 500 Mg Tab.Er.24h) 1,000 mg PO BEDTIME [facility] Last Admin: 03/22/22 20:08 Dose: 1,000 mg Hydroxyzine HCl (Hydroxyzine Hcl 25 Mg Tablet) 25 mg PO Q6H PRN PRN Reason: Anxiety Last Admin: 03/13/22 23:41 Dose: 25 mg Ibuprofen (Ibuprofen 600 Mg Tablet) 600 mg PO Q8H PRN PRN Reason: knee pain Last Admin: 03/20/22 23:52 Dose: 600 mg Magnesium Hydroxide (Milk Of Magnesia 30 Ml Oral.Susp) 30 ml PO DAILY PRN PRN Reason: Constipation Olanzapine (Olanzapine Odt 10 Mg Tab.Rapdis) 10 mg TRANSLINGU Q8H PRN PRN Reason: psychotic agitation Olanzapine (Olanzapine 10 Mg Vial) 15 mg IM BID PRN PRN Reason: if pt refuses po valypjaret Olanzapine (Olanzapine 7.5 Mg Tablet) 15 mg PO BID [facility] Last Admin: 03/23/22 09:43 Dose: 15 mg Trazodone HCl (Trazodone Hcl 50 Mg Tablet) 50 mg PO BEDTIME PRN PRN Reason: Insomnia Last Admin: 03/19/22 20:04 Dose: 50 mg Allergies Allergies Allergy/AdvReac Type Severity Reaction Status Date / Time haloperidol [From Haldol] AdvReac Mild AGITATION Verified 01/31/22 16:01 propranolol AdvReac irregular Verified 03/20/22 10:50 heartbeat Assessment & Plan Assessment & Plan (1) Schizoaffective disorder: Qualifiers: Schizoaffective disorder type: unspecified Qualified Code(s): F25.9 - Schizoaffective disorder, unspecified Status: Acute Code(s): F25.9 - Schizoaffective disorder, unspecified Assessment and Plan: 61 yo female, history of schizoaffective disorder, bipolar type. [facility], lability of mood, delusional content. Assisted to hospital with police. Today, labile, angry and significantly abusive on the unit with agitation, pacing, swearing, threatening, disrobing and confusion. Bharat's guardianship in place. Section 12[address] in place to 02/05. Plan: Pt has refused all diagnostics. Continue current regime, which follows Bharat's order. Pt asks for sleep medication, declines Trazodone. Ativan 1 mg HS prn insomnia Probable section 7/ Collateral contacts. 02/04/22 Bharat's guardianship clarified. Latuda 40 mg daily. If pt refuses Olanzapine 10 mg IM Will file Section VII on 02/05. Attempt alliance building-currently pt is violent, psychotic, labile 02/06/22 Support pt in the milieu Educate regarding behaviors which place her at risk in community Section 7, court 02/12/22. 02/07/22: No med changes, pt declines to engage 02/11/22: [place] building attempts 02/12/22: Continue current regime. 02/13/22: Court 02/26/22. Continue current regime. 02/14 no changes to current regimen 02/15 no changes to current regimen 02/16/[address] 02/26/22 02/17/22 Pt isolated cont tx plan remains withdrawn not engaged . 02/19/22 Continue current plan 02/20/22 Increase Olanzapine to 7.5 mg bid 02/21 continue current tx plan 02/22 continue current tx plan 02/23 Pt tolerated a brief discussion of her thoughts regarding her court date and treatment planning before dismissing tw. Will continue this discussion on 02/24. 02/24/22 [address] of upcoming court date. Requested continuation so we can continue to attempt to work with pt-Court date rescheduled for 03/12/22. 02/26/22 Discontinue Latuda Olanzapine 10 mg bid Will begin to address pt's verbalized concerns she identified today. 03/01/22 Improving. Continue current plan 03/02/22 Improved communication so interventions may be targeted. Continue current regime. 03/04/22 Lamictal 25 mg bid to begin 03/05/22. 03/06/22 Continue current regime. 03/07: continue current mgmt. 03/08: continue current mgmt. 03/09: more active today, better able to engage with MD. continue current mgmt. 03/13/22: Continue current regime 03/15/2022: No changes 03/17/22 continue wellbutrin olanzapinewas engaged 03/18/22 Pt seen in f/u more forthcoming remains with psychotic process but improved continue Wellbutrin olanzapine Depakote 03/20/22 Pt withdrawn dysphoric guarded cont olanzapine 03/23/2022 Increasingly paranoid agitated. Stop Wellbutrin may be causing cycling and worsening agitation Asking for Section 8 hearing to be put off I spent minutes with the patient and/or on the patient floor today, greater than?50% of which was spent counseling/coordinating care. Reason for contiued inpatient stay Substantial Risk for: harm to self, harm to others, inability to function and rapid decompensation
[2022-03-23 16:28] VITALS: BP 116/73; PULSE 101
[2022-03-23] MEDS: Divalproex Sodium ER 500 MG TAB.ER.24H 1000 MG PO (19:38)
[2022-03-24 08:30] VITALS: BP 123/85; PULSE 115; TEMP 36.6
[2022-03-24] MEDS: OLANZapine 7.5 MG TABLET 15 MG PO ×2 (08:48→20:18)
[2022-03-24] MEDS: Benztropine Mesylate 0.5 MG TABLET PO ×2 (08:48→20:18)
[2022-03-24 09:09] LABS: Valproate 74.1 mcg/mL (50.0-100.0)
[2022-03-24] MEDS: Ibuprofen 600 MG TABLET PO (13:53)
[2022-03-24 16:32] VITALS: BP 156/81; PULSE 118; RESP 18; TEMP 36.2; O2SAT 96
[2022-03-24] MEDS: Divalproex Sodium ER 500 MG TAB.ER.24H 1000 MG PO (20:18)
--- NOTE | 2022-03-24 21:15 | HO.PSYCHPN ---
Subjective Subjective Date of Service: 03/24/22 Reason For Visit: Schizoaffective disorder-Bipolar type Interim History: Patient calmer today was less aggressive and less labile patient had not felt able to return home Medication Compliance: Yes Mental Status Exam Mental Status Exam Narrative: Mental Status Exam Narrative: Appearance: Disheveled Behavior: Posturing irritable eventually aggressive verbally psychomotor: Periods of agitation Speech: Thought proccess hopeless helpless less thought blocking Thought content: Despair over not being able to return home Mood: Depressed less angry and paranoid Affect: Irritable SI:denies denies at present HI:denies VH/AH:none Delusions: Paranoid concerns Insight/judgment: Impaired became aggressive threatening limited insight guarded evasive Memory/cog: Diagnostics Vital Signs (24Hr): Vital Signs - 24 hr 03/24/22 08:30 03/24/22 16:32 Temperature 97.9 F 97.2 F Pulse Rate 115 H 118 H Respiratory Rate 18 Blood Pressure 123/85 156/81 H Pulse Oximetry 96 Oxygen Delivery Method Room Air BMI result Body Mass Index 30.2 Labs Results: 03/07/22 07:14 03/07/22 07:14 Labs: Laboratory Results - last 48 hr 03/24/22 08:05 Valproic Acid 74.1 Medications Medications Current Medications Acetaminophen (Acetaminophen 325 Mg Tablet) 650 mg PO Q6H PRN PRN Reason: Headache/Pain Mild Scale (1-3) Last Admin: 03/15/22 20:02 Dose: 650 mg Al Hydroxide/Mg Hydroxide (Magnesium Hydrox/Alum Hydrox 30 Ml Oral.Susp) 30 ml PO Q6H PRN PRN Reason: Heartburn/Nausea Benztropine Mesylate (Benztropine Mesylate 0.5 Mg Tablet) 0.5 mg PO BID [facility] Last Admin: 03/24/22 20:18 Dose: 0.5 mg Diphenhydramine HCl (Diphenhydramine Hcl 12.5 Mg/5 Ml Liquid) 50 mg PO BEDTIME PRN PRN Reason: insomnia Last Admin: 03/20/22 23:53 Dose: 50 mg Divalproex Sodium (Divalproex Sodium Er 500 Mg Tab.Er.24h) 1,000 mg PO BEDTIME ANNA Last Admin: 03/24/22 20:18 Dose: 1,000 mg Hydroxyzine HCl (Hydroxyzine Hcl 25 Mg Tablet) 25 mg PO Q6H PRN PRN Reason: Anxiety Last Admin: 03/13/22 23:41 Dose: 25 mg Ibuprofen (Ibuprofen 600 Mg Tablet) 600 mg PO Q8H PRN PRN Reason: knee pain Last Admin: 03/24/22 13:53 Dose: 600 mg Magnesium Hydroxide (Milk Of Magnesia 30 Ml Oral.Susp) 30 ml PO DAILY PRN PRN Reason: Constipation Olanzapine (Olanzapine Odt 10 Mg Tab.Rapdis) 10 mg TRANSLINGU Q8H PRN PRN Reason: psychotic agitation Olanzapine (Olanzapine 10 Mg Vial) 15 mg IM BID PRN PRN Reason: if pt refuses po zyprexa-bharat Olanzapine (Olanzapine 7.5 Mg Tablet) 15 mg PO BID ANNA Last Admin: 03/24/22 20:18 Dose: 15 mg Trazodone HCl (Trazodone Hcl 50 Mg Tablet) 50 mg PO BEDTIME PRN PRN Reason: Insomnia Last Admin: 03/19/22 20:04 Dose: 50 mg Allergies Allergies Allergy/AdvReac Type Severity Reaction Status Date / Time haloperidol [From Haldol] AdvReac Mild AGITATION Verified 01/31/22 16:01 propranolol AdvReac irregular Verified 03/20/22 10:50 heartbeat Assessment & Plan Assessment & Plan (1) Schizoaffective disorder: Qualifiers: Schizoaffective disorder type: unspecified Qualified Code(s): F25.9 - Schizoaffective disorder, unspecified Status: Acute Code(s): F25.9 - Schizoaffective disorder, unspecified Assessment and Plan: 61 yo female, history of schizoaffective disorder, bipolar type. Pt found incoherent in [facility] with confusion, lability of mood, delusional content. Assisted to hospital with police. Today, labile, angry and significantly abusive on the unit with agitation, pacing, swearing, threatening, disrobing and confusion. Bharat's guardianship in place. Section [address] in place to 02/05. Plan: Pt has refused all diagnostics. Continue current regime, which follows Bharat's order. Pt asks for sleep medication, declines Trazodone. Ativan 1 mg HS prn insomnia Probable section 01/09 Collateral contacts. 02/04/22 Bharat's guardianship clarified. Latuda 40 mg daily. If pt refuses Olanzapine 10 mg IM Will file Section VII on 02/05. Attempt alliance building-currently pt is violent, psychotic, labile 02/06/22 Support pt in the milieu Educate regarding behaviors which place her at risk in community Section 7, court 02/12/22. 02/07/22: No med changes, pt declines to engage 02/11/22: [place] building attempts 02/12/22: Continue current regime. 02/13/22: Court 02/26/22. Continue current regime. 02/14 no changes to current regimen 02/15 no changes to current regimen 02/16/[address] 02/26/22 02/17/22 Pt isolated cont tx plan remains withdrawn not engaged . 02/19/22 Continue current plan 02/20/22 Increase Olanzapine to 7.5 mg bid 02/21 continue current tx plan 02/22 continue current tx plan 02/23 Pt tolerated a brief discussion of her thoughts regarding her court date and treatment planning before dismissing tw. Will continue this discussion on 02/24. 02/24/22 [address] discussion of upcoming court date. Requested continuation so we can continue to attempt to work with pt-Court date rescheduled for 03/12/22. 02/26/22 Discontinue Latuda Olanzapine 10 mg bid Will begin to address pt's verbalized concerns she identified today. 03/01/22 Improving. Continue current plan 03/02/22 Improved communication so interventions may be targeted. Continue current regime. 03/04/22 Lamictal 25 mg bid to begin 03/05/22. 03/06/22 Continue current regime. 03/07: continue current mgmt. 03/08: continue current mgmt. 03/09: more active today, better able to engage with MD. continue current mgmt. 03/13/22: Continue current regime 03/15/2022: No changes 03/17/22 continue wellbutrin olanzapinewas engaged 03/18/22 Pt seen in f/u more forthcoming remains with psychotic process but improved continue Wellbutrin olanzapine Depakote 03/20/22 Pt withdrawn dysphoric guarded cont olanzapine 03/23/2022 Increasingly paranoid agitated. Stop Wellbutrin may be causing cycling and worsening agitation Asking for Section 8 hearing to be put off 03/24/2022 Check Depakote level Wellbutrin discontinued continue discharge planning continue olanzapine check mood after Wellbutrin discontinued I spent minutes with the patient and/or on the patient floor today, greater than?50% of which was spent counseling/coordinating care. Reason for contiued inpatient stay Substantial Risk for: harm to self, inability to function and rapid decompensation
[2022-03-24] MEDS: diphenhydrAMINE HCl 12.5 MG/5 ML LIQUID 50 MG PO (22:55)
[2022-03-25] MEDS: OLANZapine 7.5 MG TABLET 15 MG PO ×2 (08:59→20:18)
[2022-03-25] MEDS: Benztropine Mesylate 0.5 MG TABLET PO ×2 (08:59→20:18)
--- NOTE | 2022-03-25 10:58 | P.PNPSI_ITS ---
Subjective Subjective Date of Service: 03/25/22 Reason For Visit: Schizoaffective disorder-Bipolar type Subjective Notes: Section 7 Medical Problems Affecting Mental Status: No Interim History: The patient is intermittently come cooperative able to discuss discharge planning issues and then becomes aggressive guarded paranoid and agitated. When overwhelmed with stress she appears to default into a a paranoid aggressive agitated mode. She has been taking olanzapine and Depakote was unable to complete meeting with myself and Joann jiménez from social work Medication Compliance: Yes Attending Groups: No Review of Systems Medical Review of Systems: unchanged Mental Status Exam Mental Status Exam Narrative: Mental Status Exam Narrative: Appearance: Disheveled Behavior: Posturing irritable eventually aggressive verbally psychomotor: Periods of agitation Speech: Thought proccess hopeless helpless less thought blocking Thought content: Despair over not being able to return home in issues related to her CT Mood: Depressed anxious Affect: Irritable labile angry SI:denies denies at present HI:denies VH/AH:none Delusions: Paranoid concerns Insight/judgment: Impaired became aggressive threatening limited insight guarded evasive Memory/cog: Diagnostics Vital Signs (24Hr): Vital Signs - 24 hr 03/24/22 16:32 Temperature 97.2 F Pulse Rate 118 H Respiratory Rate 18 Blood Pressure 156/81 H Pulse Oximetry 96 Oxygen Delivery Method Room Air BMI result Body Mass Index 30.2 Labs Results: 03/07/22 07:14 03/07/22 07:14 Labs: Laboratory Results - last 48 hr 03/24/22 08:05 Valproic Acid 74.1 Medications Medications Current Medications Acetaminophen (Acetaminophen 325 Mg Tablet) 650 mg PO Q6H PRN PRN Reason: Headache/Pain Mild Scale (1-3) Last Admin: 03/15/22 20:02 Dose: 650 mg Al Hydroxide/Mg Hydroxide (Magnesium Hydrox/Alum Hydrox 30 Ml Oral.Susp) 30 ml PO Q6H PRN PRN Reason: Heartburn/Nausea Benztropine Mesylate (Benztropine Mesylate 0.5 Mg Tablet) 0.5 mg PO BID ANNA Last Admin: 03/25/22 08:59 Dose: 0.5 mg Diphenhydramine HCl (Diphenhydramine Hcl 12.5 Mg/5 Ml Liquid) 50 mg PO BEDTIME PRN PRN Reason: insomnia Last Admin: 03/24/22 22:55 Dose: 50 mg Divalproex Sodium (Divalproex Sodium Er 500 Mg Tab.Er.24h) 1,000 mg PO BEDTIME ANNA Last Admin: 03/24/22 20:18 Dose: 1,000 mg Hydroxyzine HCl (Hydroxyzine Hcl 25 Mg Tablet) 25 mg PO Q6H PRN PRN Reason: Anxiety Last Admin: 03/13/22 23:41 Dose: 25 mg Ibuprofen (Ibuprofen 600 Mg Tablet) 600 mg PO Q8H PRN PRN Reason: knee pain Last Admin: 03/24/22 13:53 Dose: 600 mg Magnesium Hydroxide (Milk Of Magnesia 30 Ml Oral.Susp) 30 ml PO DAILY PRN PRN Reason: Constipation Olanzapine (Olanzapine Odt 10 Mg Tab.Rapdis) 10 mg TRANSLINGU Q8H PRN PRN Reason: psychotic agitation Olanzapine (Olanzapine 10 Mg Vial) 15 mg IM BID PRN PRN Reason: if pt refuses po zyprexa-alessia Olanzapine (Olanzapine 7.5 Mg Tablet) 15 mg PO BID [facility] Last Admin: 03/25/22 08:59 Dose: 15 mg Trazodone HCl (Trazodone Hcl 50 Mg Tablet) 50 mg PO BEDTIME PRN PRN Reason: Insomnia Last Admin: 03/19/22 20:04 Dose: 50 mg Allergies Allergies Allergy/AdvReac Type Severity Reaction Status Date / Time haloperidol [From Haldol] AdvReac Mild AGITATION Verified 01/31/22 16:01 propranolol AdvReac irregular Verified 03/20/22 10:50 heartbeat Assessment & Plan Assessment & Plan (1) Schizoaffective disorder: Qualifiers: Schizoaffective disorder type: unspecified Qualified Code(s): F25.9 - Schizoaffective disorder, unspecified Status: Acute Code(s): F25.9 - Schizoaffective disorder, unspecified Assessment and Plan: 61 yo female, history of schizoaffective disorder, bipolar type. Pt found incoherent in [employer] with confusion, lability of mood, delusional content. Assisted to hospital with police. Today, labile, angry and significantly abusive on the unit with agitation, pacing, swearing, threatening, disrobing and confusion. Alessia's guardianship in place. Section [address] in place to 02/05. Plan: Pt has refused all diagnostics. Continue current regime, which follows Alessia's order. Pt asks for sleep medication, declines Trazodone. Ativan 1 mg HS prn insomnia Probable section 7/ Collateral contacts. 02/04/22 Alessia's guardianship clarified. Latuda 40 mg daily. If pt refuses Olanzapine 10 mg IM Will file Section VII on 02/05. Attempt alliance building-currently pt is violent, psychotic, labile 02/06/22 Support pt in the milieu Educate regarding behaviors which place her at risk in community Section 7, court 02/12/22. 02/07/22: No med changes, pt declines to engage 02/11/22: [place] building attempts 02/12/22: Continue current regime. 02/13/22: Court 02/26/22. Continue current regime. 02/14 no changes to current regimen 02/15 no changes to current regimen 02/16/[address] 02/26/22 02/17/22 Pt isolated cont tx plan remains withdrawn not engaged . 02/19/22 Continue current plan 02/20/22 Increase Olanzapine to 7.5 mg bid 02/21 continue current tx plan 02/22 continue current tx plan 02/23 Pt tolerated a brief discussion of her thoughts regarding her court date and treatment planning before dismissing tw. Will continue this discussion on 02/24. 02/24/22 Decl[address] discussion of upcoming court date. Requested continuation so we can continue to attempt to work with pt-Court date rescheduled for 03/12/22. 02/26/22 Discontinue Latuda Olanzapine 10 mg bid Will begin to address pt's verbalized concerns she identified today. 03/01/22 Improving. Continue current plan 03/02/22 Improved communication so interventions may be targeted. Continue current regime. 03/04/22 Lamictal 25 mg bid to begin 03/05/22. 03/06/22 Continue current regime. 03/07: continue current mgmt. 03/08: continue current mgmt. 03/09: more active today, better able to engage with MD. continue current mgmt. 03/13/22: Continue current regime 03/15/2022: No changes 03/17/22 continue wellbutrin olanzapinewas engaged 03/18/22 Pt seen in f/u more forthcoming remains with psychotic process but improved continue Wellbutrin olanzapine Depakote 03/20/22 Pt withdrawn dysphoric guarded cont olanzapine 03/23/2022 Increasingly paranoid agitated. Stop Wellbutrin may be causing cycling and worsening agitation Asking for Section 8 hearing to be put off 03/24/2022 Check Depakote level Wellbutrin discontinued continue discharge planning continue olanzapine check mood after Wellbutrin discontinued 03/25/2022 Patient continues to have periods of paranoia and agitation. Wellbutrin discontinued which may been a contributing factor. Depakote levels 70 will increase Depakote to 1250 mg at bedtime I spent minutes with the patient and/or on the patient floor today, greater than?50% of which was spent counseling/coordinating care. Reason for contiued inpatient stay Substantial Risk for: harm to self and rapid decompensation
[2022-03-25] MEDS: OLANZapine ODT 10 MG TAB.RAPDIS TRANSLINGU (16:24)
[2022-03-25 18:00] VITALS: BP 158/80; PULSE 70; RESP 18; TEMP 36.6; O2SAT 97
[2022-03-25] MEDS: Divalproex Sodium ER 250 MG TAB.ER.24H 1250 MG PO (20:17)
[2022-03-26] MEDS: Benztropine Mesylate 0.5 MG TABLET PO ×2 (09:41→19:24)
[2022-03-26] MEDS: OLANZapine 7.5 MG TABLET 15 MG PO ×2 (09:41→19:24)
[2022-03-26 10:28] VITALS: BMI 30.3
[2022-03-26 10:29] VITALS: BP 123/82; PULSE 133; RESP 18; TEMP 36.6; O2SAT 97
[2022-03-26] MEDS: Divalproex Sodium ER 250 MG TAB.ER.24H 1250 MG PO (19:24)
[2022-03-26 19:58] VITALS: BP 131/87; PULSE 107
--- NOTE | 2022-03-26 21:49 | HO.PSYCHPN ---
Subjective Subjective Date of Service: 03/26/22 Reason For Visit: Schizoaffective disorder-Bipolar type Subjective Notes: Section 7 Interim History: For it the patient was somewhat calmer and more reflective today. Better able to process information. Remains perplexed overwhelmed depressed better however since Wellbutrin discontinued still depressed withdrawn ruminating Medication Compliance: Yes Review of Systems Acute medical concerns: No Mental Status Exam Mental Status Exam Narrative: Mental Status Exam Narrative: Appearance: Disheveled Behavior: Posturing irritable eventually aggressive verbally psychomotor: Periods of agitation Speech: Thought proccess hopeless helpless less thought blocking Thought content: ruminating helpless Mood: Depressed anxious Affect: flat dysphoric SI:denies denies at present HI:denies VH/AH:none Delusions: Paranoid concerns Insight/judgment: Impaired became aggressive threatening limited insight guarded evasive Memory/cog: Diagnostics Vital Signs (24Hr): Vital Signs - 24 hr 03/26/22 10:29 03/26/22 19:58 Temperature 97.8 F Pulse Rate 133 H 107 H Respiratory Rate 18 Blood Pressure 123/82 131/87 Pulse Oximetry 97 Oxygen Delivery Method Room Air BMI result Body Mass Index 30.3 Labs Results: 03/07/22 07:14 03/07/22 07:14 Medications Medications Current Medications Acetaminophen (Acetaminophen 325 Mg Tablet) 650 mg PO Q6H PRN PRN Reason: Headache/Pain Mild Scale (1-3) Last Admin: 03/15/22 20:02 Dose: 650 mg Al Hydroxide/Mg Hydroxide (Magnesium Hydrox/Alum Hydrox 30 Ml Oral.Susp) 30 ml PO Q6H PRN PRN Reason: Heartburn/Nausea Benztropine Mesylate (Benztropine Mesylate 0.5 Mg Tablet) 0.5 mg PO BID [facility] Last Admin: 03/26/22 19:24 Dose: 0.5 mg Diphenhydramine HCl (Diphenhydramine Hcl 12.5 Mg/5 Ml Liquid) 50 mg PO BEDTIME PRN PRN Reason: insomnia Last Admin: 03/24/22 22:55 Dose: 50 mg Divalproex Sodium (Divalproex Sodium Er 250 Mg Tab.Er.24h) 1,250 mg PO BEDTIME ANNA Last Admin: 03/26/22 19:24 Dose: 1,250 mg Hydroxyzine HCl (Hydroxyzine Hcl 25 Mg Tablet) 25 mg PO Q6H PRN PRN Reason: Anxiety Last Admin: 03/13/22 23:41 Dose: 25 mg Ibuprofen (Ibuprofen 600 Mg Tablet) 600 mg PO Q8H PRN PRN Reason: knee pain Last Admin: 03/24/22 13:53 Dose: 600 mg Magnesium Hydroxide (Milk Of Magnesia 30 Ml Oral.Susp) 30 ml PO DAILY PRN PRN Reason: Constipation Olanzapine (Olanzapine Odt 10 Mg Tab.Rapdis) 10 mg TRANSLINGU Q8H PRN PRN Reason: psychotic agitation Last Admin: 03/25/22 16:24 Dose: 10 mg Olanzapine (Olanzapine 10 Mg Vial) 15 mg IM BID PRN PRN Reason: if pt refuses po zyprexa-bharat Olanzapine (Olanzapine 7.5 Mg Tablet) 15 mg PO BID ANNA Last Admin: 03/26/22 19:24 Dose: 15 mg Trazodone HCl (Trazodone Hcl 50 Mg Tablet) 50 mg PO BEDTIME PRN PRN Reason: Insomnia Last Admin: 03/19/22 20:04 Dose: 50 mg Allergies Allergies Allergy/AdvReac Type Severity Reaction Status Date / Time haloperidol [From Haldol] AdvReac Mild AGITATION Verified 01/31/22 16:01 propranolol AdvReac irregular Verified 03/20/22 10:50 heartbeat Assessment & Plan Assessment & Plan (1) Schizoaffective disorder: Qualifiers: Schizoaffective disorder type: unspecified Qualified Code(s): F25.9 - Schizoaffective disorder, unspecified Status: Acute Code(s): F25.9 - Schizoaffective disorder, unspecified Assessment and Plan: 61 yo female, history of schizoaffective disorder, bipolar type. Pt found incoherent in [facility] with confusion, lability of mood, delusional content. Assisted to hospital with police. Today, labile, angry and significantly abusive on the unit with agitation, pacing, swearing, threatening, disrobing and confusion. Bharat's guardianship in place. Section [address] in place to 02/05. Plan: Pt has refused all diagnostics. Continue current regime, which follows Bharat's order. Pt asks for sleep medication, declines Trazodone. Ativan 1 mg HS prn insomnia Probable section 7/8 Collateral contacts. 02/04/22 Bharat's guardianship clarified. Latuda 40 mg daily. If pt refuses Olanzapine 10 mg IM Will file Section VII on 02/05. Attempt alliance building-currently pt is violent, psychotic, labile 02/06/22 Support pt in the milieu Educate regarding behaviors which place her at risk in community Section 7, court 02/12/22. 02/07/22: No med changes, pt declines to engage 02/11/22: [place] building attempts 02/12/22: Continue current regime. 02/13/22: Court 02/26/22. Continue current regime. 02/14 no changes to current regimen 02/15 no changes to current regimen 02/16/[address] 02/26/22 02/17/22 Pt isolated cont tx plan remains withdrawn not engaged . 02/19/22 Continue current plan 02/20/22 Increase Olanzapine to 7.5 mg bid 02/21 continue current tx plan 02/22 continue current tx plan 02/23 Pt tolerated a brief discussion of her thoughts regarding her court date and treatment planning before dismissing tw. Will continue this discussion on 02/24. 02/24/22 [address] discussion of upcoming court date. Requested continuation so we can continue to attempt to work with pt-Court date rescheduled for 03/12/22. 02/26/22 Discontinue Latuda Olanzapine 10 mg bid Will begin to address pt's verbalized concerns she identified today. 03/01/22 Improving. Continue current plan 03/02/22 Improved communication so interventions may be targeted. Continue current regime. 03/04/22 Lamictal 25 mg bid to begin 03/05/22. 03/06/22 Continue current regime. 03/07: continue current mgmt. 03/08: continue current mgmt. 03/09: more active today, better able to engage with MD. continue current mgmt. 03/13/22: Continue current regime 03/15/2022: No changes 03/17/22 continue wellbutrin olanzapinewas engaged 03/18/22 Pt seen in f/u more forthcoming remains with psychotic process but improved continue Wellbutrin olanzapine Depakote 03/20/22 Pt withdrawn dysphoric guarded cont olanzapine 03/23/2022 Increasingly paranoid agitated. Stop Wellbutrin may be causing cycling and worsening agitation Asking for Section 8 hearing to be put off 03/24/2022 Check Depakote level Wellbutrin discontinued continue discharge planning continue olanzapine check mood after Wellbutrin discontinued 03/25/2022 Patient continues to have periods of paranoia and agitation. Wellbutrin discontinued which may been a contributing factor. Depakote levels 70 will increase Depakote to 1250 mg at bedtime 03/26/22 Pt calmer encourage OOB more d/c planning 1250 mg de ? respite p I spent minutes with the patient and/or on the patient floor today, greater than?50% of which was spent counseling/coordinating care. Reason for contiued inpatient stay Substantial Risk for: harm to self, inability to function and rapid decompensation
[2022-03-27] MEDS: OLANZapine 7.5 MG TABLET 15 MG PO ×2 (09:24→19:00)
[2022-03-27] MEDS: Benztropine Mesylate 0.5 MG TABLET PO ×2 (09:24→19:00)
[2022-03-27 09:27] VITALS: BP 119/78; PULSE 114; RESP 16; TEMP 36.2; O2SAT 93
[2022-03-27 18:00] VITALS: BP 122/82; PULSE 112; TEMP 36.3
[2022-03-27] MEDS: Divalproex Sodium ER 250 MG TAB.ER.24H 1250 MG PO (19:00)
--- NOTE | 2022-03-27 21:11 | P.PNPSI_ITS ---
Subjective Subjective Date of Service: 03/27/22 Reason For Visit: Schizoaffective disorder-Bipolar type Subjective Notes: Section 7 Interim History: Patient has been in bed a lot of the day withdrawn depressed and ruminating. Was reassured 1 we discussed she did not seem capable of making decision regarding returning home at this time. Had significant anxiety overwhelmed we again discussed Medication Compliance: Yes Mental Status Exam Mental Status Exam Narrative: Mental Status Exam Narrative: Appearance: Disheveled Behavior: Posturing irritable eventually aggressive verbally psychomotor: Periods of agitation Speech: Thought proccess hopeless helpless less thought blocking Thought content: ruminating helpless Mood: Depressed anxious Affect: flat dysphoric SI:denies denies at present HI:denies VH/AH:none Delusions: Paranoid concerns Insight/judgment: Impaired became aggressive threatening limited insight guarded evasive Memory/cog: Diagnostics Vital Signs (24Hr): Vital Signs - 24 hr 03/27/22 09:27 03/27/22 18:00 Temperature 97.2 F 97.3 F Pulse Rate 114 H 112 H Respiratory Rate 16 Blood Pressure 119/78 122/82 Pulse Oximetry 93 Oxygen Delivery Method Room Air BMI result Body Mass Index 30.3 Labs Results: 03/07/22 07:14 03/07/22 07:14 Medications Medications Current Medications Acetaminophen (Acetaminophen 325 Mg Tablet) 650 mg PO Q6H PRN PRN Reason: Headache/Pain Mild Scale (1-3) Last Admin: 03/15/22 20:02 Dose: 650 mg Al Hydroxide/Mg Hydroxide (Magnesium Hydrox/Alum Hydrox 30 Ml Oral.Susp) 30 ml PO Q6H PRN PRN Reason: Heartburn/Nausea Benztropine Mesylate (Benztropine Mesylate 0.5 Mg Tablet) 0.5 mg PO BID [facility] Last Admin: 03/27/22 19:00 Dose: 0.5 mg Diphenhydramine HCl (Diphenhydramine Hcl 12.5 Mg/5 Ml Liquid) 50 mg PO BEDTIME PRN PRN Reason: insomnia Last Admin: 03/24/22 22:55 Dose: 50 mg Divalproex Sodium (Divalproex Sodium Er 250 Mg Tab.Er.24h) 1,250 mg PO BEDTIME ANNA Last Admin: 03/27/22 19:00 Dose: 1,250 mg Hydroxyzine HCl (Hydroxyzine Hcl 25 Mg Tablet) 25 mg PO Q6H PRN PRN Reason: Anxiety Last Admin: 03/13/22 23:41 Dose: 25 mg Ibuprofen (Ibuprofen 600 Mg Tablet) 600 mg PO Q8H PRN PRN Reason: knee pain Last Admin: 03/24/22 13:53 Dose: 600 mg Magnesium Hydroxide (Milk Of Magnesia 30 Ml Oral.Susp) 30 ml PO DAILY PRN PRN Reason: Constipation Olanzapine (Olanzapine Odt 10 Mg Tab.Rapdis) 10 mg TRANSLINGU Q8H PRN PRN Reason: psychotic agitation Last Admin: 03/25/22 16:24 Dose: 10 mg Olanzapine (Olanzapine 10 Mg Vial) 15 mg IM BID PRN PRN Reason: if pt refuses po zyprexa-bharat Olanzapine (Olanzapine 7.5 Mg Tablet) 15 mg PO BID ANNA Last Admin: 03/27/22 19:00 Dose: 15 mg Trazodone HCl (Trazodone Hcl 50 Mg Tablet) 50 mg PO BEDTIME PRN PRN Reason: Insomnia Last Admin: 03/19/22 20:04 Dose: 50 mg Allergies Allergies Allergy/AdvReac Type Severity Reaction Status Date / Time haloperidol [From Haldol] AdvReac Mild AGITATION Verified 01/31/22 16:01 propranolol AdvReac irregular Verified 03/20/22 10:50 heartbeat Assessment & Plan Assessment & Plan (1) Schizoaffective disorder: Qualifiers: Schizoaffective disorder type: unspecified Qualified Code(s): F25.9 - Schizoaffective disorder, unspecified Status: Acute Code(s): F25.9 - Schizoaffective disorder, unspecified Assessment and Plan: 61 yo female, history of schizoaffective disorder, bipolar type. Pt found incoherent in [facility] with confusion, lability of mood, delusional content. As sisted to hospital with police. Today, labile, angry and significantly abusive on the unit with agitation, pacing, swearing, threatening, disrobing and confusion. Bharat's guardianship in place. Section [address] in place to 02/05. Plan: Pt has refused all diagnostics. Continue current regime, which follows Bharat's order. Pt asks for sleep medication, declines Trazodone. Ativan 1 mg HS prn insomnia Probable section 7/8 Collateral contacts. 02/04/22 Bharat's guardianship clarified. Latuda 40 mg daily. If pt refuses Olanzapine 10 mg IM Will file Section VII on 02/05. Attempt alliance building-currently pt is violent, psychotic, labile 02/06/22 Support pt in the milieu Educate regarding behaviors which place her at risk in community Section 7, court 02/12/22. 02/07/22: No med changes, pt declines to engage 02/11/22: [place] building attempts 02/12/22: Continue current regime. 02/13/22: Court 02/26/22. Continue current regime. 02/14 no changes to current regimen 02/15 no changes to current regimen 02/16/[address] 02/26/22 02/17/22 Pt isolated cont tx plan remains withdrawn not engaged . 02/19/22 Continue current plan 02/20/22 Increase Olanzapine to 7.5 mg bid 02/21 continue current tx plan 02/22 continue current tx plan 02/23 Pt tolerated a brief discussion of her thoughts regarding her court date and treatment planning before dismissing tw. Will continue this discussion on 02/24. 02/24/22 [address] discussion of upcoming court date. Requested continuation so we can continue to attempt to work with pt-Court date rescheduled for 03/12/22. 02/26/22 Discontinue Latuda Olanzapine 10 mg bid Will begin to address pt's verbalized concerns she identified today. 03/01/22 Improving. Continue current plan 03/02/22 Improved communication so interventions may be targeted. Continue current regime. 03/04/22 Lamictal 25 mg bid to begin 03/05/22. 03/06/22 Continue current regime. 03/07: continue current mgmt. 03/08: continue current mgmt. 03/09: more active today, better able to engage with MD. continue current mgmt. 03/13/22: Continue current regime 03/15/2022: No changes 03/17/22 continue wellbutrin olanzapinewas engaged 03/18/22 Pt seen in f/u more forthcoming remains with psychotic process but improved continue Wellbutrin olanzapine Depakote 03/20/22 Pt withdrawn dysphoric guarded cont olanzapine 03/23/2022 Increasingly paranoid agitated. Stop Wellbutrin may be causing cycling and worsening agitation Asking for Section 8 hearing to be put off 03/24/2022 Check Depakote level Wellbutrin discontinued continue discharge planning continue olanzapine check mood after Wellbutrin discontinued 03/25/2022 Patient continues to have periods of paranoia and agitation. Wellbutrin discontinued which may been a contributing factor. Depakote levels 70 will increase Depakote to 1250 mg at bedtime 03/26/22 Pt calmer encourage OOB more d/c planning 1250 mg de ? respite p 03/27/2022 Patient more withdrawn and depressed did not respond well to Wellbutrin consider Latuda augmentation. Patient not capable of engaging in discharge discussion at this time 2 depressed overwhelmed encourage shower increase shower inc oob t I spent minutes with the patient and/or on the patient floor today, greater than?50% of which was spent counseling/coordinating care. Reason for contiued inpatient stay Substantial Risk for: harm to self and inability to function
[2022-03-28 09:10] VITALS: BP 126/80; PULSE 92; TEMP 36.2
[2022-03-28] MEDS: Benztropine Mesylate 0.5 MG TABLET PO ×2 (09:11→20:07)
[2022-03-28] MEDS: OLANZapine 7.5 MG TABLET 15 MG PO ×2 (09:11→20:06)
--- NOTE | 2022-03-28 16:19 | HO.PSYCHPN ---
Subjective Subjective Date of Service: 03/28/22 Reason For Visit: Schizoaffective disorder-Bipolar type Interim History: Patient [place] approach. She says she is a little better but that she is up and down. She does however say she has a little more up than down. Denies any SI. She feels that her medications are good right now and does not want any changes. Mental Status Exam Mental Status Exam Narrative: Mental Status Exam Narrative: Appearance: Disheveled Behavior: pleasant, polite, calm psychomotor: retardation present Speech: regular rate, volume, prosody Thought proccess goal oriented Thought content: on tx Mood: depressed but a little better Affect: flat dysphoric SI:denies at present HI:denies VH/AH:none Delusions: Paranoid concerns Insight/judgment: Impaired Memory/cog: Diagnostics Vital Signs (24Hr): Vital Signs - 24 hr 03/27/22 18:00 03/28/22 09:10 Temperature 97.3 F 97.2 F Pulse Rate 112 H 92 Blood Pressure 122/82 126/80 BMI result Body Mass Index 30.3 Labs Results: 03/07/22 07:14 03/07/22 07:14 Medications Medications Current Medications Acetaminophen (Acetaminophen 325 Mg Tablet) 650 mg PO Q6H PRN PRN Reason: Headache/Pain Mild Scale (1-3) Last Admin: 03/15/22 20:02 Dose: 650 mg Al Hydroxide/Mg Hydroxide (Magnesium Hydrox/Alum Hydrox 30 Ml Oral.Susp) 30 ml PO Q6H PRN PRN Reason: Heartburn/Nausea Benztropine Mesylate (Benztropine Mesylate 0.5 Mg Tablet) 0.5 mg PO BID [facility] Last Admin: 03/28/22 09:11 Dose: 0.5 mg Diphenhydramine HCl (Diphenhydramine Hcl 12.5 Mg/5 Ml Liquid) 50 mg PO BEDTIME PRN PRN Reason: insomnia Last Admin: 03/24/22 22:55 Dose: 50 mg Divalproex Sodium (Divalproex Sodium Er 250 Mg Tab.Er.24h) 1,250 mg PO BEDTIME ANNA Last Admin: 03/27/22 19:00 Dose: 1,250 mg Hydroxyzine HCl (Hydroxyzine Hcl 25 Mg Tablet) 25 mg PO Q6H PRN PRN Reason: Anxiety Last Admin: 03/13/22 23:41 Dose: 25 mg Ibuprofen (Ibuprofen 600 Mg Tablet) 600 mg PO Q8H PRN PRN Reason: knee pain Last Admin: 03/24/22 13:53 Dose: 600 mg Magnesium Hydroxide (Milk Of Magnesia 30 Ml Oral.Susp) 30 ml PO DAILY PRN PRN Reason: Constipation Olanzapine (Olanzapine Odt 10 Mg Tab.Rapdis) 10 mg TRANSLINGU Q8H PRN PRN Reason: psychotic agitation Last Admin: 03/25/22 16:24 Dose: 10 mg Olanzapine (Olanzapine 10 Mg Vial) 15 mg IM BID PRN PRN Reason: if pt refuses po zyprexa-bharat Olanzapine (Olanzapine 7.5 Mg Tablet) 15 mg PO BID ANNA Last Admin: 03/28/22 09:11 Dose: 15 mg Trazodone HCl (Trazodone Hcl 50 Mg Tablet) 50 mg PO BEDTIME PRN PRN Reason: Insomnia Last Admin: 03/19/22 20:04 Dose: 50 mg Allergies Allergies Allergy/AdvReac Type Severity Reaction Status Date / Time haloperidol [From Haldol] AdvReac Mild AGITATION Verified 01/31/22 16:01 propranolol AdvReac irregular Verified 03/20/22 10:50 heartbeat Assessment & Plan Assessment & Plan (1) Schizoaffective disorder: Qualifiers: Schizoaffective disorder type: unspecified Qualified Code(s): F25.9 - Schizoaffective disorder, unspecified Status: Acute Code(s): F25.9 - Schizoaffective disorder, unspecified Assessment and Plan: 61 yo female, history of schizoaffective disorder, bipolar type. Pt found incoherent in [facility] with confusion, lability of mood, delusional content. Assisted to hospital with police. Today, labile, angry and significantly abusive on the unit with agitation, pacing, swearing, threatening, disrobing and confusion. Bharat's guardianship in place. Section [address] in place to 02/05. Plan: Pt has refused all diagnostics. Continue current regime, which follows Bharat's order. Pt asks for sleep medication, declines Trazodone. Ativan 1 mg HS prn insomnia Probable section 7/8 Collateral contacts. 02/04/22 Bharat's guardianship clarified. Latuda 40 mg daily. If pt refuses Olanzapine 10 mg IM Will file Section VII on 02/05. Attempt alliance building-currently pt is violent, psychotic, labile 02/06/22 Support pt in the milieu Educate regarding behaviors which place her at risk in community Section 7, court 02/12/22. 02/07/22: No med changes, pt declines to engage 02/11/22: [place] building attempts 02/12/22: Continue current regime. 02/13/22: Court 02/26/22. Continue current regime. 02/14 no changes to current regimen 02/15 no changes to current regimen 02/16/[address] 02/26/22 02/17/22 Pt isolated cont tx plan remains withdrawn not engaged . 02/19/22 Continue current plan 02/20/22 Increase Olanzapine to 7.5 mg bid 02/21 continue current tx plan 02/22 continue current tx plan 02/23 Pt tolerated a brief discussion of her thoughts regarding her court date and treatment planning before dismissing tw. Will continue this discussion on 02/24. 02/24/22 Declines discussion of upcoming court date. Requested continuation so we can continue to attempt to work with pt-Court date rescheduled for 03/12/22. 02/26/22 Discontinue Latuda Olanzapine 10 mg bid Will begin to address pt's verbalized concerns she identified today. 03/01/22 Improving. Continue current plan 03/02/22 Improved communication so interventions may be targeted. Continue current regime. 03/04/22 Lamictal 25 mg bid to begin 03/05/22. 03/06/22 Continue current regime. 03/07: continue current mgmt. 03/08: continue current mgmt. 03/09: more active today, better able to engage with MD. continue current mgmt. 03/13/22: Continue current regime 03/15/2022: No changes 03/17/22 continue wellbutrin olanzapinewas engaged 03/18/22 Pt seen in f/u more forthcoming remains with psychotic process but improved continue Wellbutrin olanzapine Depakote 03/20/22 Pt withdrawn dysphoric guarded cont olanzapine 03/23/2022 Increasingly paranoid agitated. Stop Wellbutrin may be causing cycling and worsening agitation Asking for Section 8 hearing to be put off 03/24/2022 Check Depakote level Wellbutrin discontinued continue discharge planning continue olanzapine check mood after Wellbutrin discontinued 03/25/2022 Patient continues to have periods of paranoia and agitation. Wellbutrin discontinued which may been a contributing factor. Depakote levels 70 will increase Depakote to 1250 mg at bedtime 03/26/22 Pt calmer encourage OOB more d/c planning 1250 mg de ? respite p 03/27/2022 Patient more withdrawn and depressed did not respond well to Wellbutrin consider Latuda augmentation. Patient not capable of engaging in discharge discussion at this time 2 depressed overwhelmed encourage shower increase shower inc oob t 03/28 Patient more calm and pleasant and cooperative; does not want any medication changes I spent minutes with the patient and/or on the patient floor today, greater than?50% of which was spent counseling/coordinating care. Patient educated on: diagnosis and medication risk/benefits Informed Consent: understands Reason for contiued inpatient stay Substantial Risk for: inability to function
[2022-03-28 18:00] VITALS: RESP 16
[2022-03-28] MEDS: Divalproex Sodium ER 250 MG TAB.ER.24H 1250 MG PO (20:07)
[2022-03-29 06:00] VITALS: BP 143/76; PULSE 118; TEMP 36.5; O2SAT 95
[2022-03-29] MEDS: Benztropine Mesylate 0.5 MG TABLET PO ×2 (08:54→20:21)
[2022-03-29] MEDS: OLANZapine 7.5 MG TABLET 15 MG PO ×2 (08:54→20:20)
--- NOTE | 2022-03-29 17:15 | HO.PSYCHPN ---
Subjective Subjective Date of Service: 03/29/22 Reason For Visit: Schizoaffective disorder-Bipolar type Interim History: Patient again says she is a little better and she can tell because she is not as sleepy today she was. Otherwise denies any SI. Does not want any medication changes at this time. Mental Status Exam Mental Status Exam Narrative: Mental Status Exam Narrative: Appearance: Disheveled Behavior: pleasant, polite, calm psychomotor: retardation present Speech: regular rate, volume, prosody Thought proccess goal oriented Thought content: on tx Mood: depressed but a little better Affect: flat dysphoric SI:denies at present HI:denies VH/AH:none Delusions: Paranoid concerns Insight/judgment: Impaired Memory/cog: Diagnostics Vital Signs (24Hr): Vital Signs - 24 hr 03/28/22 18:00 03/29/22 06:00 Temperature 97.7 F Pulse Rate 118 H Respiratory Rate 16 Blood Pressure 143/76 H Pulse Oximetry 95 Oxygen Delivery Method Room Air BMI result Body Mass Index 30.3 Labs Results: 03/07/22 07:14 03/07/22 07:14 Medications Medications Current Medications Acetaminophen (Acetaminophen 325 Mg Tablet) 650 mg PO Q6H PRN PRN Reason: Headache/Pain Mild Scale (1-3) Last Admin: 03/15/22 20:02 Dose: 650 mg Al Hydroxide/Mg Hydroxide (Magnesium Hydrox/Alum Hydrox 30 Ml Oral.Susp) 30 ml PO Q6H PRN PRN Reason: Heartburn/Nausea Benztropine Mesylate (Benztropine Mesylate 0.5 Mg Tablet) 0.5 mg PO BID ANNA Last Admin: 03/29/22 08:54 Dose: 0.5 mg Diphenhydramine HCl (Diphenhydramine Hcl 12.5 Mg/5 Ml Liquid) 50 mg PO BEDTIME PRN PRN Reason: insomnia Last Admin: 03/24/22 22:55 Dose: 50 mg Divalproex Sodium (Divalproex Sodium Er 250 Mg Tab.Er.24h) 1,250 mg PO BEDTIME ANNA Last Admin: 03/28/22 20:07 Dose: 1,250 mg Hydroxyzine HCl (Hydroxyzine Hcl 25 Mg Tablet) 25 mg PO Q6H PRN PRN Reason: Anxiety Last Admin: 03/13/22 23:41 Dose: 25 mg Ibuprofen (Ibuprofen 600 Mg Tablet) 600 mg PO Q8H PRN PRN Reason: knee pain Last Admin: 03/24/22 13:53 Dose: 600 mg Magnesium Hydroxide (Milk Of Magnesia 30 Ml Oral.Susp) 30 ml PO DAILY PRN PRN Reason: Constipation Olanzapine (Olanzapine Odt 10 Mg Tab.Rapdis) 10 mg TRANSLINGU Q8H PRN PRN Reason: psychotic agitation Last Admin: 03/25/22 16:24 Dose: 10 mg Olanzapine (Olanzapine 10 Mg Vial) 15 mg IM BID PRN PRN Reason: if pt refuses po zyprexa-bharat Olanzapine (Olanzapine 7.5 Mg Tablet) 15 mg PO BID ANNA Last Admin: 03/29/22 08:54 Dose: 15 mg Trazodone HCl (Trazodone Hcl 50 Mg Tablet) 50 mg PO BEDTIME PRN PRN Reason: Insomnia Last Admin: 03/19/22 20:04 Dose: 50 mg Allergies Allergies Allergy/AdvReac Type Severity Reaction Status Date / Time haloperidol [From Haldol] AdvReac Mild AGITATION Verified 01/31/22 16:01 propranolol AdvReac irregular Verified 03/20/22 10:50 heartbeat Assessment & Plan Assessment & Plan (1) Schizoaffective disorder: Qualifiers: Schizoaffective disorder type: unspecified Qualified Code(s): F25.9 - Schizoaffective disorder, unspecified Status: Acute Code(s): F25.9 - Schizoaffective disorder, unspecified Assessment and Plan: 61 yo female, history of schizoaffective disorder, bipolar type. Pt found incoherent in [facility] with confusion, lability of mood, delusional content. Assisted to hospital with police. Today, labile, angry and significantly abusive on the unit with agitation, pacing, swearing, threatening, disrobing and confusion. Bharat's guardianship in place. Section 12B in place to 02/05. Plan: Pt has refused all diagnostics. Continue current regime, which follows Bharat's order. Pt asks for sleep medication, declines Trazodone. Ativan 1 mg HS prn insomnia Probable section 7/ Collateral contacts. 02/04/22 Bharat's guardianship clarified. Latuda 40 mg daily. If pt refuses Olanzapine 10 mg IM Will file Section VII on 02/05. Attempt alliance building-currently pt is violent, psychotic, labile 02/06/22 Support pt in the milieu Educate regarding behaviors which place her at risk in community Section 7, court 02/12/22. 02/07/22: No med changes, pt declines to engage 02/11/22: [place] building attempts 02/12/22: Continue current regime. 02/13/22: Court 02/26/22. Continue current regime. 02/14 no changes to current regimen 02/15 no changes to current regimen 02/16/[address] 02/26/22 02/17/22 Pt isolated cont tx plan remains withdrawn not engaged . 02/19/22 Continue current plan 02/20/22 Increase Olanzapine to 7.5 mg bid 02/21 continue current tx plan 02/22 continue current tx plan 02/23 Pt tolerated a brief discussion of her thoughts regarding her court date and treatment planning before dismissing tw. Will continue this discussion on 02/24. 02/24/22 Decl[address] discussion of upcoming court date. Requested continuation so we can continue to attempt to work with pt-Court date rescheduled for 03/12/22. 02/26/22 Discontinue Latuda Olanzapine 10 mg bid Will begin to address pt's verbalized concerns she identified today. 03/01/22 Improving. Continue current plan 03/02/22 Improved communication so interventions may be targeted. Continue current regime. 03/04/22 Lamictal 25 mg bid to begin 03/05/22. 03/06/22 Continue current regime. 03/07: continue current mgmt. 03/08: continue current mgmt. 03/09: more active today, better able to engage with MD. continue current mgmt. 03/13/22: Continue current regime 03/15/2022: No changes 03/17/22 continue wellbutrin olanzapinewas engaged 03/18/22 Pt seen in f/u more forthcoming remains with psychotic process but improved continue Wellbutrin olanzapine Depakote 03/20/22 Pt withdrawn dysphoric guarded cont olanzapine 03/23/2022 Increasingly paranoid agitated. Stop Wellbutrin may be causing cycling and worsening agitation Asking for Section 8 hearing to be put off 03/24/2022 Check Depakote level Wellbutrin discontinued continue discharge planning continue olanzapine check mood after Wellbutrin discontinued 03/25/2022 Patient continues to have periods of paranoia and agitation. Wellbutrin discontinued which may been a contributing factor. Depakote levels 70 will increase Depakote to 1250 mg at bedtime 03/26/22 Pt calmer encourage OOB more d/c planning 1250 mg de ? respite p 03/27/2022 Patient more withdrawn and depressed did not respond well to Wellbutrin consider Latuda augmentation. Patient not capable of engaging in discharge discussion at this time 2 depressed overwhelmed encourage shower increase shower inc oob t 03/28 Patient more calm and pleasant and cooperative; does not want any medication changes 03/29 calm and cooperative; Continue with current treatment plan I spent minutes with the patient and/or on the patient floor today, greater than?50% of which was spent counseling/coordinating care. Patient educated on: diagnosis Reason for contiued inpatient stay Substantial Risk for: inability to function
[2022-03-29 18:00] VITALS: RESP 16
[2022-03-29] MEDS: Divalproex Sodium ER 250 MG TAB.ER.24H 1250 MG PO (20:21)
[2022-03-30 06:00] VITALS: BP 120/76; PULSE 97; RESP 16; TEMP 37; O2SAT 97
[2022-03-30] MEDS: OLANZapine 7.5 MG TABLET 15 MG PO ×2 (08:50→20:53)
[2022-03-30] MEDS: Benztropine Mesylate 0.5 MG TABLET PO (08:51)
--- NOTE | 2022-03-30 17:39 | P.PNPSI_ITS ---
Subjective Subjective Date of Service: 03/30/22 Reason For Visit: Schizoaffective disorder-Bipolar type Subjective Notes: Section 7 Guardianship: Yes Interim History: Jhon reports Wellbutrin was OK , but they thought it made me angry (team reports anger and agitation with 75 mg). Star has trialed without efficacy and is on [place] for 40 mg only. Corie is not on Prado-will begin ammendment process. Discussed low dose Sertraline. Pt agrees. Reports depressive sx- tired, anergic, denies feeling overmedicated. Reports some restless feelings at times- will increase Benztropine and Right knee pain-will ask ortho to meet with pt. Lizzie scussed a intermediate designer feeling pt reports she and her brother have always had-that forboding feeling that something bad will happen, like it is the end of the world and it is my fault. Identifies worries as issues with her debit card, license and bank acct (team has offered to assist several times-pt has declined) Medication Compliance: Yes Side effects from medications: No Attending Groups: Intermittent Review of Systems Acute medical concerns: No Medical Review of Systems: unchanged Mental Status Exam Mental Status Exam Patient Appearance: Fatigued Patient Orientation: Person, Place, Time and Situation Level of Consciousness: Alert Patient Behavior: Talkative and Good Eye Contact Mood Description: Depressed Affect Description: Flat Patient Cognition Impaired: No Ability to Follow Directions: Good Speech Pattern: Spontaneous Speech Memory Description: Intact Hallucinations: None (denies) Delusions: Paranoid Ideation and Present Perceptual Disturbances: Depersonalization and Derealization Thought Process: Rumination Thought Content: positive for Circumstantial, positive for Perseveration and positive for Suicidal Ideation (denies) Depressive Symptoms: Increased Anxiety, Sleeping More Than Usual, Isolating- Friends/Family, Unhappiness and Low Self Esteem Judgement: Poor Diagnostics Vital Signs (24Hr): Vital Signs - 24 hr 03/29/22 18:00 03/30/22 06:00 Temperature 98.6 F Pulse Rate 97 Respiratory Rate 16 16 Blood Pressure 120/76 Pulse Oximetry 97 Oxygen Delivery Method Room Air BMI result Body Mass Index 30.3 Labs Results: 03/07/22 07:14 03/07/22 07:14 Medications Medications Current Medications Acetaminophen (Acetaminophen 325 Mg Tablet) 650 mg PO Q6H PRN PRN Reason: Headache/Pain Mild Scale (1-3) Last Admin: 03/15/22 20:02 Dose: 650 mg Al Hydroxide/Mg Hydroxide (Magnesium Hydrox/Alum Hydrox 30 Ml Oral.Susp) 30 ml PO Q6H PRN PRN Reason: Heartburn/Nausea Benztropine Mesylate (Benztropine Mesylate 1 Mg Tablet) 1 mg PO BID ANNA Diphenhydramine HCl (Diphenhydramine Hcl 12.5 Mg/5 Ml Liquid) 50 mg PO BEDTIME PRN PRN Reason: insomnia Last Admin: 03/24/22 22:55 Dose: 50 mg Divalproex Sodium (Divalproex Sodium Er 250 Mg Tab.Er.24h) 1,250 mg PO BEDTIME ANNA Last Admin: 03/29/22 20:21 Dose: 1,250 mg Hydroxyzine HCl (Hydroxyzine Hcl 25 Mg Tablet) 25 mg PO Q6H PRN PRN Reason: Anxiety Last Admin: 03/13/22 23:41 Dose: 25 mg Ibuprofen (Ibuprofen 600 Mg Tablet) 600 mg PO Q8H PRN PRN Reason: knee pain Last Admin: 03/24/22 13:53 Dose: 600 mg Magnesium Hydroxide (Milk Of Magnesia 30 Ml Oral.Susp) 30 ml PO DAILY PRN PRN Reason: Constipation Olanzapine (Olanzapine Odt 10 Mg Tab.Rapdis) 10 mg TRANSLINGU Q8H PRN PRN Reason: psychotic agitation Last Admin: 03/25/22 16:24 Dose: 10 mg Olanzapine (Olanzapine 10 Mg Vial) 15 mg IM BID PRN PRN Reason: if pt refuses po lay Olanzapine (Olanzapine 7.5 Mg Tablet) 15 mg PO BID ANNA Last Admin: 03/30/22 08:50 Dose: 15 mg Sertraline HCl (Sertraline Hcl 25 Mg Tablet) 25 mg PO DAILY ANNA Trazodone HCl (Trazodone Hcl 50 Mg Tablet) 50 mg PO BEDTIME PRN PRN Reason: Insomnia Last Admin: 03/19/22 20:04 Dose: 50 mg Allergies Allergies Allergy/AdvReac Type Severity Reaction Status Date / Time haloperidol [From Haldol] AdvReac Mild AGITATION Verified 01/31/22 16:01 propranolol AdvReac irregular Verified 03/20/22 10:50 heartbeat Assessment & Plan Assessment & Plan (1) Schizoaffective disorder: Qualifiers: Schizoaffective disorder type: unspecified Qualified Code(s): F25.9 - Schizoaffective disorder, unspecified Status: Acute Code(s): F25.9 - Schizoaffective disorder, unspecified Assessment and Plan: 61 yo female, history of schizoaffective disorder, bipolar type. Pt found incoherent in [employer] with confusion, lability of mood, delusional content. Assisted to hospital with police. Today, labile, angry and significantly abusive on the unit with agitation, pacing, swearing, threatening, disrobing and confusion. Bharat's guardianship in place. Section 12[address] in place to 02/05. Plan: Pt has refused all diagnostics. Continue current regime, which follows Bharat's order. Pt asks for sleep medication, declines Trazodone. Ativan 1 mg HS prn insomnia Probable section 7/ Collateral contacts. 02/04/22 Bharat's guardianship clarified. Latuda 40 mg daily. If pt refuses Olanzapine 10 mg IM Will file Section VII on 02/05. Attempt alliance building-currently pt is violent, psychotic, labile 02/06/22 Support pt in the milieu Educate regarding behaviors which place her at risk in community Section 7, court 02/12/22. 02/07/22: No med changes, pt declines to engage 02/11/22: [place] building attempts 02/12/22: Continue current regime. 02/13/22: Court 02/26/22. Continue current regime. 02/14 no changes to current regimen 02/15 no changes to current regimen 02/16/[address] 02/26/22 02/17/22 Pt isolated cont tx plan remains withdrawn not engaged . 02/19/22 Continue current plan 02/20/22 Increase Olanzapine to 7.5 mg bid 02/21 continue current tx plan 02/22 continue current tx plan 02/23 Pt tolerated a brief discussion of her thoughts regarding her court date a nd treatment planning before dismissing tw. Will continue this discussion on 02/24. 02/24/22 [address] of upcoming court date. Requested continuation so we can continue to attempt to work with pt-Court date rescheduled for 03/12/22. 02/26/22 Discontinue Latuda Olanzapine 10 mg bid Will begin to address pt's verbalized concerns she identified today. 03/01/22 Improving. Continue current plan 03/02/22 Improved communication so interventions may be targeted. Continue current regime. 03/04/22 Lamictal 25 mg bid to begin 03/05/22. 03/06/22 Continue current regime. 03/07: continue current mgmt. 03/08: continue current mgmt. 5: more active today, better able to engage with MD. continue current mgmt. 03/13/22: Continue current regime 03/15/2022: No changes 03/17/22 continue wellbutrin olanzapinewas engaged 03/18/22 Pt seen in f/u more forthcoming remains with psychotic process but improved continue Wellbutrin olanzapine Depakote 03/20/22 Pt withdrawn dysphoric guarded cont olanzapine 03/23/2022 Increasingly paranoid agitated. Stop Wellbutrin may be causing cycling and worsening agitation Asking for Section 8 hearing to be put off 03/24/2022 Check Depakote level Wellbutrin discontinued continue discharge planning continue olanzapine check mood after Wellbutrin discontinued 03/25/2022 Patient continues to have periods of paranoia and agitation. Wellbutrin disco ntinued which may been a contributing factor. Depakote levels 70 will increase Depakote to 1250 mg at bedtime 03/26/22 Pt calmer encourage OOB more d/c planning 1250 mg de ? respite p 03/27/2022 Patient more withdrawn and depressed did not respond well to Wellbutrin consider Latuda augmentation. Patient not capable of engaging in discharge discussion at this time 2 depressed overwhelmed encourage shower increase shower inc oob t 03/28 Patient more calm and pleasant and cooperative; does not want any medication changes 03/29 calm and cooperative; Continue with current treatment plan 03/30/22- Sertraline 25 mg daily Increase Benztropine to 1 mg bid Ortho Consult I spent minutes with the patient and/or on the patient floor today, great er than?50% of which was spent counseling/coordinating care. Patient educated on: medication risk/benefits Informed Consent: further education needed Reason for contiued inpatient stay Substantial Risk for: inability to function and rapid decompensation
[2022-03-30] MEDS: Benztropine Mesylate 1 MG TABLET PO (20:53)
[2022-03-30] MEDS: Divalproex Sodium ER 250 MG TAB.ER.24H 1250 MG PO (20:53)
[2022-03-30] MEDS: Ibuprofen 600 MG TABLET PO (20:53)
[2022-03-31] MEDS: OLANZapine 7.5 MG TABLET 15 MG PO ×2 (09:04→20:26)
[2022-03-31] MEDS: Sertraline HCL 25 MG TABLET PO (09:04)
[2022-03-31] MEDS: Benztropine Mesylate 1 MG TABLET PO ×2 (09:04→20:26)
[2022-03-31 18:00] VITALS: BP 113/70; PULSE 106
[2022-03-31] MEDS: Divalproex Sodium ER 250 MG TAB.ER.24H 1250 MG PO (20:27)
--- NOTE | 2022-03-31 22:18 | HO.PSYCHPN ---
Subjective Subjective Date of Service: 03/31/22 Reason For Visit: Schizoaffective disorder-Bipolar type Subjective Notes: Section 7 Healthcare Proxy: No Guardianship: Yes Medical Problems Affecting Mental Status: No Interim History: Tolerating medication changes without side effects. Denies new concerns today. Medication Compliance: Yes Side effects from medications: No Attending Groups: Intermittent Review of Systems Acute medical concerns: No Medical Review of Systems: unchanged Mental Status Exam Mental Status Exam Patient Appearance: Fatigued Patient Orientation: Person, Place, Time and Situation Level of Consciousness: Alert Patient Behavior: Talkative and Good Eye Contact Mood Description: Depressed Affect Description: Flat Patient Cognition Impaired: No Ability to Follow Directions: Good Speech Pattern: Spontaneous Speech Memory Description: Intact Hallucinations: None (denies) Delusions: Paranoid Ideation and Present Perceptual Disturbances: Depersonalization and Derealization Thought Process: Rumination Thought Content: positive for Circumstantial, positive for Perseveration and positive for Suicidal Ideation (denies) Depressive Symptoms: Increased Anxiety, Sleeping More Than Usual, Isolating-Friends/Family, Unhappiness and Low Self Esteem Judgement: Poor Diagnostics Vital Signs (24Hr): Vital Signs - 24 hr 03/31/22 18:00 Pulse Rate 106 H Blood Pressure 113/70 BMI result Body Mass Index 30.3 Labs Results: 03/07/22 07:14 03/07/22 07:14 Medications Medications Current Medications Acetaminophen (Acetaminophen 325 Mg Tablet) 650 mg PO Q6H PRN PRN Reason: Headache/Pain Mild Scale (1-3) Last Admin: 03/15/22 20:02 Dose: 650 mg Al Hydroxide/Mg Hydroxide (Magnesium Hydrox/Alum Hydrox 30 Ml Oral.Susp) 30 ml PO Q6H PRN PRN Reason: Heartburn/Nausea Benztropine Mesylate (Benztropine Mesylate 1 Mg Tablet) 1 mg PO BID [facility] Last Admin: 03/31/22 20:26 Dose: 1 mg Diphenhydramine HCl (Diphenhydramine Hcl 12.5 Mg/5 Ml Liquid) 50 mg PO BEDTIME PRN PRN Reason: insomnia Last Admin: 03/24/22 22:55 Dose: 50 mg Divalproex Sodium (Divalproex Sodium Er 250 Mg Tab.Er.24h) 1,250 mg PO BEDTIME ANNA Last Admin: 03/31/22 20:27 Dose: 1,250 mg Hydroxyzine HCl (Hydroxyzine Hcl 25 Mg Tablet) 25 mg PO Q6H PRN PRN Reason: Anxiety Last Admin: 03/13/22 23:41 Dose: 25 mg Ibuprofen (Ibuprofen 600 Mg Tablet) 600 mg PO Q8H PRN PRN Reason: knee pain Last Admin: 03/30/22 20:53 Dose: 600 mg Magnesium Hydroxide (Milk Of Magnesia 30 Ml Oral.Susp) 30 ml PO DAILY PRN PRN Reason: Constipation Olanzapine (Olanzapine Odt 10 Mg Tab.Rapdis) 10 mg TRANSLINGU Q8H PRN PRN Reason: psychotic agitation Last Admin: 03/25/22 16:24 Dose: 10 mg Olanzapine (Olanzapine 10 Mg Vial) 15 mg IM BID PRN PRN Reason: if pt refuses po zyprexa-bharat Olanzapine (Olanzapine 7.5 Mg Tablet) 15 mg PO BID ANNA Last Admin: 03/31/22 20:26 Dose: 15 mg Sertraline HCl (Sertraline Hcl 25 Mg Tablet) 25 mg PO DAILY ANNA Last Admin: 03/31/22 09:04 Dose: 25 mg Trazodone HCl (Trazodone Hcl 50 Mg Tablet) 50 mg PO BEDTIME PRN PRN Reason: Insomnia Last Admin: 03/19/22 20:04 Dose: 50 mg Allergies Allergies Allergy/AdvReac Type Severity Reaction Status Date / Time haloperidol [From Haldol] AdvReac Mild AGITATION Verified 01/31/22 16:01 propranolol AdvReac irregular Verified 03/20/22 10:50 heartbeat Assessment & Plan Assessment & Plan (1) Schizoaffective disorder: Qualifiers: Schizoaffective disorder type: unspecified Qualified Code(s): F25.9 - Schizoaffective disorder, unspecified Status: Acute Code(s): F25.9 - Schizoaffective disorder, unspecified Assessment and Plan: 61 yo female, history of schizoaffective disorder, bipolar type. [facility], lability of mood, delusional content. Assisted to hospital with police. Today, labile, angry and significantly abusive on the unit with agitation, pacing, swearing, threatening, disrobing and confusion. Bharat's guardianship in place. Section 12B in place to 02/05. Plan: Pt has refused all diagnostics. Continue current regime, which follows Bharat's order. Pt asks for sleep medication, declines Trazodone. Ativan 1 mg HS prn insomnia Probable section 7/ Collateral contacts. 02/04/22 Bharat's guardianship clarified. Latuda 40 mg daily. If pt refuses Olanzapine 10 mg IM Will file Section VII on 02/05. Attempt alliance building-currently pt is violent, psychotic, labile 02/06/22 Support pt in the milieu Educate regarding behaviors which place her at risk in community Section 7, court 02/12/22. 02/07/22: No med changes, pt declines to engage 02/11/22: [place] building attempts 02/12/22: Continue current regime. 02/13/22: Court 02/26/22. Continue current regime. 02/14 no changes to current regimen 02/15 no changes to current regimen 02/16/[address] 02/26/22 02/17/22 Pt isolated cont tx plan remains withdrawn not engaged . 02/19/22 Continue current plan 02/20/22 Increase Olanzapine to 7.5 mg bid 02/21 continue current tx plan 02/22 continue current tx plan 02/23 Pt tolerated a brief discussion of her thoughts regarding her court date and treatment planning before dismissing tw. Will continue this discussion on 02/24. 02/24/22 Decl[address] discussion of upcoming court date. Requested continuation so we can continue to attempt to work with pt-Court date rescheduled for 03/12/22. 02/26/22 Discontinue Latuda Olanzapine 10 mg bid Will begin to address pt's verbalized concerns she identified today. 03/01/22 Improving. Continue current plan 03/02/22 Improved communication so interventions may be targeted. Continue current regime. 03/04/22 Lamictal 25 mg bid to begin 03/05/22. 03/06/22 Continue current regime. 03/07: continue current mgmt. 03/08: continue current mgmt. 03/09: more active today, better able to engage with MD. continue current mgmt. 03/13/22: Continue current regime 03/15/2022: No changes 03/17/22 continue wellbutrin olanzapinewas engaged 03/18/22 Pt seen in f/u more forthcoming remains with psychotic process but improved continue Wellbutrin olanzapine Depakote 03/20/22 Pt withdrawn dysphoric guarded cont olanzapine 03/23/2022 Increasingly paranoid agitated. Stop Wellbutrin may be causing cycling and worsening agitation Asking for Section 8 hearing to be put off 03/24/2022 Check Depakote level Wellbutrin discontinued continue discharge planning continue olanzapine check mood after Wellbutrin discontinued 03/25/2022 Patient continues to have periods of paranoia and agitation. Wellbutrin discontinued which may been a contributing factor. Depakote levels 70 will increase Depakote to 1250 mg at bedtime 03/26/22 Pt calmer encourage OOB more d/c planning 1250 mg de ? respite p 03/27/2022 Patient more withdrawn and depressed did not respond well to Wellbutrin consider Latuda augmentation. Patient not capable of engaging in discharge discussion at this time 2 depressed overwhelmed encourage shower increase shower inc oob t 03/28 Patient more calm and pleasant and cooperative; does not want any medication changes 03/29 calm and cooperative; Continue with current treatment plan 03/31/22 Continue regime and plan of care. I spent minutes with the patient and/or on the patient floor today, greater than?50% of which was spent counseling/coordinating care. Patient educated on: therapeutic strategies Informed Consent: further education needed Reason for contiued inpatient stay Substantial Risk for: harm to self, harm to others, inability to function and rapid decompensation
[2022-03-31] MEDS: traZODone HCL 50 MG TABLET PO (23:56)
[2022-03-31] MEDS: diphenhydrAMINE HCl 12.5 MG/5 ML LIQUID 50 MG PO (23:57)
[2022-04-01 06:00] VITALS: BP 95/61; PULSE 112; TEMP 36.3; O2SAT 96
[2022-04-01] MEDS: Benztropine Mesylate 1 MG TABLET PO ×2 (08:15→20:21)
[2022-04-01] MEDS: OLANZapine 7.5 MG TABLET 15 MG PO ×2 (08:15→20:22)
[2022-04-01] MEDS: Sertraline HCL 25 MG TABLET PO (08:15)
--- NOTE | 2022-04-01 16:18 | HO.PSYCHPN ---
Subjective Subjective Date of Service: 04/01/22 Reason For Visit: Schizoaffective disorder-Bipolar type Subjective Notes: Section 7 Healthcare Proxy: No Guardianship: No Medical Problems Affecting Mental Status: No Interim History: Expressions of ambivalence-to return home, to transition to home through respite, to contact her bank for a new debit card- you tell me what to do . All of you have it right for me, so I trust people here to help me. I am feeling better because of the staff here. Discussed process of healing and continuation of this process when discharged-with continued growth and strength. Tolerating Sertraline without adverse effects. Medication Compliance: Yes Side effects from medications: No Attending Groups: No Review of Systems Acute medical concerns: No Medical Review of Systems: unchanged Mental Status Exam Mental Status Exam Patient Appearance: Disheveled Patient Orientation: Person, Place, Time and Situation Level of Consciousness: Sedated (initially in bed, awakens immediately, no evidence of sedation.) and Alert Patient Behavior: Appropriate, Cooperative, Fatigued, Isolative and Good Eye Contact Diagnostics Vital Signs (24Hr): Vital Signs - 24 hr 03/31/22 18:00 04/01/22 06:00 Temperature 97.3 F Pulse Rate 106 H 112 H Blood Pressure 113/70 95/61 Pulse Oximetry 96 Oxygen Delivery Method Room Air BMI result Body Mass Index 30.3 Labs Results: 03/07/22 07:14 03/07/22 07:14 Medications Medications Current Medications Acetaminophen (Acetaminophen 325 Mg Tablet) 650 mg PO Q6H PRN PRN Reason: Headache/Pain Mild Scale (1-3) Last Admin: 03/15/22 20:02 Dose: 650 mg Al Hydroxide/Mg Hydroxide (Magnesium Hydrox/Alum Hydrox 30 Ml Oral.Susp) 30 ml PO Q6H PRN PRN Reason: Heartburn/Nausea Benztropine Mesylate (Benztropine Mesylate 1 Mg Tablet) 1 mg PO BID [facility] Last Admin: 04/01/22 08:15 Dose: 1 mg Diphenhydramine HCl (Diphenhydramine Hcl 12.5 Mg/5 Ml Liquid) 50 mg PO BEDTIME PRN PRN Reason: insomnia Last Admin: 03/31/22 23:57 Dose: 50 mg Divalproex Sodium (Divalproex Sodium Er 250 Mg Tab.Er.24h) 1,250 mg PO BEDTIME ANNA Last Admin: 03/31/22 20:27 Dose: 1,250 mg Hydroxyzine HCl (Hydroxyzine Hcl 25 Mg Tablet) 25 mg PO Q6H PRN PRN Reason: Anxiety Last Admin: 03/13/22 23:41 Dose: 25 mg Ibuprofen (Ibuprofen 600 Mg Tablet) 600 mg PO Q8H PRN PRN Reason: knee pain Last Admin: 03/30/22 20:53 Dose: 600 mg Magnesium Hydroxide (Milk Of Magnesia 30 Ml Oral.Susp) 30 ml PO DAILY PRN PRN Reason: Constipation Olanzapine (Olanzapine Odt 10 Mg Tab.Rapdis) 10 mg TRANSLINGU Q8H PRN PRN Reason: psychotic agitation Last Admin: 03/25/22 16:24 Dose: 10 mg Olanzapine (Olanzapine 10 Mg Vial) 15 mg IM BID PRN PRN Reason: if pt refuses po zyprexa-bharat Olanzapine (Olanzapine 7.5 Mg Tablet) 15 mg PO BID ANNA Last Admin: 04/01/22 08:15 Dose: 15 mg Sertraline HCl (Sertraline Hcl 25 Mg Tablet) 25 mg PO DAILY ANNA Last Admin: 04/01/22 08:15 Dose: 25 mg Trazodone HCl (Trazodone Hcl 50 Mg Tablet) 50 mg PO BEDTIME PRN PRN Reason: Insomnia Last Admin: 03/31/22 23:56 Dose: 50 mg Allergies Allergies Allergy/AdvReac Type Severity Reaction Status Date / Time haloperidol [From Haldol] AdvReac Mild AGITATION Verified 01/31/22 16:01 propranolol AdvReac irregular Verified 03/20/22 10:50 heartbeat Assessment & Plan Assessment & Plan (1) Schizoaffective disorder: Qualifiers: Schizoaffective disorder type: unspecified Qualified Code(s): F25.9 - Schizoaffective disorder, unspecified Status: Acute Code(s): F25.9 - Schizoaffective disorder, unspecified Assessment and Plan: 61 yo female, history of schizoaffective disorder, bipolar type. Pt found incoherent in [employer] with confusion, lability of mood, delusional content. Assisted to hospital with police. Today, labile, angry and significantly abusive on the unit with agitation, pacing, swearing, threatening, disrobing and confusion. Bharat's guardianship in place. Section 12B in place to 02/05. Plan: Pt has refused all diagnostics. Continue current regime, which follows Bharat's order. Pt asks for sleep medication, declines Trazodone. Ativan 1 mg HS prn insomnia Probable section 7/8 Collateral contacts. 02/04/22 Bharat's guardianship clarified. Latuda 40 mg daily. If pt refuses Olanzapine 10 mg IM Will file Section VII on 02/05. Attempt alliance building-currently pt is violent, psychotic, labile 02/06/22 Support pt in the milieu Educate regarding behaviors which place her at risk in community Section 7, court 02/12/22. 02/07/22: No med changes, pt declines to engage 02/11/22: [place] building attempts 02/12/22: Continue current regime. 02/13/22: Court 02/26/22. Continue current regime. 02/14 no changes to current regimen 02/15 no changes to current regimen 02/16/[address] 02/26/22 02/17/22 Pt isolated cont tx plan remains withdrawn not engaged . 02/19/22 Continue current plan 02/20/22 Increase Olanzapine to 7.5 mg bid 02/21 continue current tx plan 02/22 continue current tx plan 02/23 Pt tolerated a brief discussion of her thoughts regarding her court date and treatment planning before dismissing tw. Will continue this discussion on 02/24. 02/24/22 Decl[address] discussion of upcoming court date. Requested continuation so we can continue to attempt to work with pt-Court date rescheduled for 03/12/22. 02/26/22 Discontinue Latuda Olanzapine 10 mg bid Will begin to address pt's verbalized concerns she identified today. 03/01/22 Improving. Continue current plan 03/02/22 Improved communication so interventions may be targeted. Continue current regime. 03/04/22 Lamictal 25 mg bid to begin 03/05/22. 03/06/22 Continue current regime. 03/07: continue current mgmt. 03/08: continue current mgmt. 03/09: more active today, better able to engage with MD. continue current mgmt. 03/13/22: Continue current regime 03/15/2022: No changes 03/17/22 continue wellbutrin olanzapinewas engaged 03/18/22 Pt seen in f/u more forthcoming remains with psychotic process but improved continue Wellbutrin olanzapine Depakote 03/20/22 Pt withdrawn dysphoric guarded cont olanzapine 03/23/2022 Increasingly paranoid agitated. Stop Wellbutrin may be causing cycling and worsening agitation Asking for Section 8 hearing to be put off 03/24/2022 Check Depakote level Wellbutrin discontinued continue discharge planning continue olanzapine check mood after Wellbutrin discontinued 03/25/2022 Patient continues to have periods of paranoia and agitation. Wellbutrin discontinued which may been a contributing factor. Depakote levels 70 will increase Depakote to 1250 mg at bedtime 03/26/22 Pt calmer encourage OOB more d/c planning 1250 mg de ? respite p 03/27/2022 Patient more withdrawn and depressed did not respond well to Wellbutrin consider Latuda augmentation. Patient not capable of engaging in discharge discussion at this time 2 depressed overwhelmed encourage shower increase shower inc oob t 03/28 Patient more calm and pleasant and cooperative; does not want any medication changes 03/29 calm and cooperative; Continue with current treatment plan 03/31/22 Continue regime and plan of care. 04/01/22 Continue current plan of care. I spent minutes with the patient and/or on the patient floor today, greater than?50% of which was spent counseling/coordinating care. Patient educated on: therapeutic strategies Informed Consent: understands and further education needed Reason for contiued inpatient stay Substantial Risk for: harm to self, harm to others, inability to function and rapid decompensation
[2022-04-01] MEDS: Divalproex Sodium ER 250 MG TAB.ER.24H 1250 MG PO (20:21)
[2022-04-02 06:00] VITALS: BP 131/62; PULSE 97; RESP 16; TEMP 36.6; O2SAT 96
[2022-04-02] MEDS: Sertraline HCL 25 MG TABLET PO (08:59)
[2022-04-02] MEDS: OLANZapine 7.5 MG TABLET 15 MG PO ×2 (08:59→20:57)
[2022-04-02] MEDS: Benztropine Mesylate 1 MG TABLET PO ×2 (08:59→20:57)
--- NOTE | 2022-04-02 09:35 | P.PNPSI_ITS ---
Subjective Subjective Date of Service: 04/02/22 Reason For Visit: Schizoaffective disorder-Bipolar type Subjective Notes: Section 7 Guardianship: Yes Interim History: Tolerating Sertraline. Will increase to 50 mg and change to HS on 04/04/22. Discussed anger with self for indecisive episodes- it is just hard to make up my mind. Discussed lower energy at times and at times feeling weak. Met with pt and Kristin PARIKH- pt will go to respite next week and transition home. Medication Compliance: Yes Side effects from medications: No Attending Groups: No Review of Systems Acute medical concerns: No Mental Status Exam Mental Status Exam Patient Appearance: Disheveled Patient Orientation: Person, Place, Time and Situation Level of Consciousness: Sedated (initially in bed, awakens immediately, no evidence of sedation.) and Alert Patient Behavior: Appropriate, Cooperative, Fatigued, Isolative and Good Eye Contact Mood Description: Flat Affect Description: Flat Patient Cognition Impaired: No Ability to Follow Directions: Good Speech Pattern: Spontaneous Speech Memory Description: Remote Impaired and Episodic Impaired Hallucinations: None Delusions: Not Present Perceptual Disturbances: Depersonalization and Derealization Thought Process: Distracted and Rumination Thought Content: positive for Perseveration, positive for Suicidal Ideation (denies) and positive for Homicidal Ideation (denies) Depressive Symptoms: Increased Fatigue, Low Self Esteem, Loss of Energy and Difficulty Concentrating Judgement: Fair Diagnostics Vital Signs (24Hr): Vital Signs - 24 hr 04/02/22 06:00 Temperature 98 F Pulse Rate 97 Respiratory Rate 16 Blood Pressure 131/62 Pulse Oximetry 96 Oxygen Delivery Method Room Air BMI result Body Mass Index 30.3 Labs Results: 03/07/22 07:14 03/07/22 07:14 Medications Medications Current Medications Acetaminophen (Acetaminophen 325 Mg Tablet) 650 mg PO Q6H PRN PRN Reason: Headache/Pain Mild Scale (1-3) Last Admin: 03/15/22 20:02 Dose: 650 mg Al Hydroxide/Mg Hydroxide (Magnesium Hydrox/Alum Hydrox 30 Ml Oral.Susp) 30 ml PO Q6H PRN PRN Reason: Heartburn/Nausea Benztropine Mesylate (Benztropine Mesylate 1 Mg Tablet) 1 mg PO BID ANNA Last Admin: 04/02/22 08:59 Dose: 1 mg Diphenhydramine HCl (Diphenhydramine Hcl 12.5 Mg/5 Ml Liquid) 50 mg PO BEDTIME PRN PRN Reason: insomnia Last Admin: 03/31/22 23:57 Dose: 50 mg Divalproex Sodium (Divalproex Sodium Er 250 Mg Tab.Er.24h) 1,250 mg PO BEDTIME ANNA Last Admin: 04/01/22 20:21 Dose: 1,250 mg Hydroxyzine HCl (Hydroxyzine Hcl 25 Mg Tablet) 25 mg PO Q6H PRN PRN Reason: Anxiety Last Admin: 03/13/22 23:41 Dose: 25 mg Ibuprofen (Ibuprofen 600 Mg Tablet) 600 mg PO Q8H PRN PRN Reason: knee pain Last Admin: 03/30/22 20:53 Dose: 600 mg Magnesium Hydroxide (Milk Of Magnesia 30 Ml Oral.Susp) 30 ml PO DAILY PRN PRN Reason: Constipation Olanzapine (Olanzapine Odt 10 Mg Tab.Rapdis) 10 mg TRANSLINGU Q8H PRN PRN Reason: psychotic agitation Last Admin: 03/25/22 16:24 Dose: 10 mg Olanzapine (Olanzapine 10 Mg Vial) 15 mg IM BID PRN PRN Reason: if pt refuses po valyprexalber Olanzapine (Olanzapine 7.5 Mg Tablet) 15 mg PO BID [facility] Last Admin: 04/02/22 08:59 Dose: 15 mg Sertraline HCl (Sertraline Hcl 25 Mg Tablet) 25 mg PO DAILY [facility] Last Admin: 04/02/22 08:59 Dose: 25 mg Trazodone HCl (Trazodone Hcl 50 Mg Tablet) 50 mg PO BEDTIME PRN PRN Reason: Insomnia Last Admin: 03/31/22 23:56 Dose: 50 mg Allergies Allergies Allergy/AdvReac Type Severity Reaction Status Date / Time haloperidol [From Haldol] AdvReac Mild AGITATION Verified 01/31/22 16:01 propranolol AdvReac irregular Verified 03/20/22 10:50 heartbeat Assessment & Plan Assessment & Plan (1) Schizoaffective disorder: Qualifiers: Schizoaffective disorder type: unspecified Qualified Code(s): F25.9 - Schizoaffective disorder, unspecified Status: Acute Code(s): F25.9 - Schizoaffective disorder, unspecified Assessment and Plan: 61 yo female, history of schizoaffective disorder, bipolar type. Pt found incoherent in [facility] with confusion, lability of mood, delusional content. Assisted to hospital with police. Today, labile, angry and significantly abusive on the unit with agitation, pacing, swearing, threatening, disrobing and confusion. Bharat's guardianship in place. Section 12[address] in place to 02/05. Plan: Pt has refused all diagnostics. Continue current regime, which follows Bharat's order. Pt asks for sleep medication, declines Trazodone. Ativan 1 mg HS prn insomnia Probable section 7/8 Collateral contacts. 02/04/22 Bharat's guardianship clarified. Latuda 40 mg daily. If pt refuses Olanzapine 10 mg IM Will file Section VII on 02/05. Attempt alliance building-currently pt is violent, psychotic, labile 02/06/22 Support pt in the milieu Educate regarding behaviors which place her at risk in community Section 7, court 02/12/22. 02/07/22: No med changes, pt declines to engage 02/11/22: [place] building attempts 02/12/22: Continue current regime. 02/13/22: Court 02/26/22. Continue current regime. 02/14 no changes to current regimen 02/15 no changes to current regimen 02/16/[address] 02/26/22 02/17/22 Pt isolated cont tx plan remains withdrawn not engaged . 02/19/22 Continue current plan 02/20/22 Increase Olanzapine to 7.5 mg bid 02/21 continue current tx plan 02/22 continue current tx plan 02/23 Pt tolerated a brief discussion of her thoughts regarding her court date and treatment planning before dismissing tw. Will continue this discussion on 02/24. 02/24/22 [address] discussion of upcoming court date. Requested continuation so we can continue to attempt to work with pt-Court date rescheduled for 03/12/22. 02/26/22 Discontinue Latuda Olanzapine 10 mg bid Will begin to address pt's verbalized concerns she identified today. 03/01/22 Improving. Continue current plan 03/02/22 Improved communication so interventions may be targeted. Continue current regime. 03/04/22 Lamictal 25 mg bid to begin 03/05/22. 03/06/22 Continue current regime. 03/07: continue current mgmt. 9/4: continue current mgmt. 03/09: more active today, better able to engage with MD. continue current mgmt. 03/13/22: Continue current regime 03/15/2022: No changes 03/17/22 continue wellbutrin olanzapinewas engaged 03/18/22 Pt seen in f/u more forthcoming remains with psychotic process but improved continue Wellbutrin olanzapine Depakote 03/20/22 Pt withdrawn dysphoric guarded cont olanzapine 03/23/2022 Increasingly paranoid agitated. Stop Wellbutrin may be causing cycling and worsening agitation Asking for Section 8 hearing to be put off 03/24/2022 Check Depakote level Wellbutrin discontinued continue discharge planning continue olanzapine check mood after Wellbutrin discontinued 03/25/2022 Patient continues to have periods of paranoia and agitation. Wellbutrin discontinued which may been a contributing factor. Depakote levels 70 will increase Depakote to 1250 mg at bedtime 03/26/22 Pt calmer encourage OOB more d/c planning 1250 mg de ? respite p 03/27/2022 Patient more withdrawn and depressed did not respond well to Wellbutrin consider Latuda augmentation. Patient not capable of engaging in discharge discussion at this time 2 depressed overwhelmed encourage shower increase shower inc oob t 03/28 Patient more calm and pleasant and cooperative; does not want any medication changes 03/29 calm and cooperative; Continue with current treatment plan 03/31/22 Continue regime and plan of care. 04/02/22 Increase Sertraline to 50 mg and change timing to HS on 04/04. I spent minutes with the patient and/or on the patient floor today, greater than?50% of which was spent counseling/coordinating care. Patient educated on: medication risk/benefits Informed Consent: further education needed Reason for contiued inpatient stay Substantial Risk for: harm to self, harm to others, inability to function and rapid decompensation
[2022-04-02 18:00] VITALS: BP 122/85; PULSE 94; TEMP 36.6; O2SAT 98
[2022-04-02] MEDS: Divalproex Sodium ER 250 MG TAB.ER.24H 1250 MG PO (20:57)
[2022-04-02] MEDS: Ibuprofen 600 MG TABLET PO (20:59)
[2022-04-03] MEDS: OLANZapine 7.5 MG TABLET 15 MG PO ×2 (07:54→19:32)
[2022-04-03] MEDS: Sertraline HCL 25 MG TABLET PO (07:54)
[2022-04-03] MEDS: Benztropine Mesylate 1 MG TABLET PO ×2 (07:55→19:32)
[2022-04-03 07:57] VITALS: BP 116/84; PULSE 127; RESP 18; TEMP 36.4; O2SAT 95
--- NOTE | 2022-04-03 13:26 | P.PNPSI_ITS ---
Subjective Subjective Date of Service: 04/03/22 Reason For Visit: Schizoaffective disorder-Bipolar type Subjective Notes: Section 7 Healthcare Proxy: No Guardianship: No Medical Problems Affecting Mental Status: No Interim History: Plans discharge to respite next week. Discussed increasing Sertraline-pt agrees Labs/EKG prior to discharge Pt states no questions/concerns today. Medication Compliance: Yes Side effects from medications: No Attending Groups: No Review of Systems Acute medical concerns: No Medical Review of Systems: unchanged Mental Status Exam Mental Status Exam Patient Appearance: Disheveled Patient Orientation: Person, Place, Time and Situation Level of Consciousness: Sedated (initially in bed, awakens immediately, no evidence of sedation.) and Alert Patient Behavior: Appropriate, Cooperative, Fatigued, Isolative and Good Eye Contact Mood Description: Flat Affect Description: Flat Patient Cognition Impaired: No Ability to Follow Directions: Good Speech Pattern: Spontaneous Speech Memory Description: Remote Impaired and Episodic Impaired Hallucinations: None Delusions: Not Present Perceptual Disturbances: Depersonalization and Derealization Thought Process: Distracted and Rumination Thought Content: positive for Perseveration, positive for Suicidal Ideation (denies) and positive for Homicidal Ideation (denies) Depressive Symptoms: Increased Fatigue, Low Self Esteem, Loss of Energy and Difficulty Concentrating Judgement: Fair Diagnostics Vital Signs (24Hr): Vital Signs - 24 hr 04/02/22 18:00 04/03/22 07:57 Temperature 98 F 97.6 F Pulse Rate 94 127 H Respiratory Rate 18 Blood Pressure 122/85 116/84 Pulse Oximetry 98 95 Oxygen Delivery Method Room Air BMI result Body Mass Index 30.3 Labs Results: 03/07/22 07:14 03/07/22 07:14 Medications Medications Current Medications Acetaminophen (Acetaminophen 325 Mg Tablet) 650 mg PO Q6H PRN PRN Reason: Headache/Pain Mild Scale (1-3) Last Admin: 03/15/22 20:02 Dose: 650 mg Al Hydroxide/Mg Hydroxide (Magnesium Hydrox/Alum Hydrox 30 Ml Oral.Susp) 30 ml PO Q6H PRN PRN Reason: Heartburn/Nausea Benztropine Mesylate (Benztropine Mesylate 1 Mg Tablet) 1 mg PO BID ANNA Last Admin: 04/03/22 07:55 Dose: 1 mg Diphenhydramine HCl (Diphenhydramine Hcl 12.5 Mg/5 Ml Liquid) 50 mg PO BEDTIME PRN PRN Reason: insomnia Last Admin: 03/31/22 23:57 Dose: 50 mg Divalproex Sodium (Divalproex Sodium Er 250 Mg Tab.Er.24h) 1,250 mg PO BEDTIME ANNA Last Admin: 04/02/22 20:57 Dose: 1,250 mg Hydroxyzine HCl (Hydroxyzine Hcl 25 Mg Tablet) 25 mg PO Q6H PRN PRN Reason: Anxiety Last Admin: 03/13/22 23:41 Dose: 25 mg Ibuprofen (Ibuprofen 600 Mg Tablet) 600 mg PO Q8H PRN PRN Reason: knee pain Last Admin: 04/02/22 20:59 Dose: 600 mg Magnesium Hydroxide (Milk Of Magnesia 30 Ml Oral.Susp) 30 ml PO DAILY PRN PRN Reason: Constipation Olanzapine (Olanzapine Odt 10 Mg Tab.Rapdis) 10 mg TRANSLINGU Q8H PRN PRN Reason: psychotic agitation Last Admin: 03/25/22 16:24 Dose: 10 mg Olanzapine (Olanzapine 10 Mg Vial) 15 mg IM BID PRN PRN Reason: if pt refuses po lay Olanzapine (Olanzapine 7.5 Mg Tablet) 15 mg PO BID [facility] Last Admin: 04/03/22 07:54 Dose: 15 mg Sertraline HCl (Sertraline Hcl 25 Mg Tablet) 25 mg PO DAILY [facility] Last Admin: 04/03/22 07:54 Dose: 25 mg Trazodone HCl (Trazodone Hcl 50 Mg Tablet) 50 mg PO BEDTIME PRN PRN Reason: Insomnia Last Admin: 03/31/22 23:56 Dose: 50 mg Allergies Allergies Allergy/AdvReac Type Severity Reaction Status Date / Time haloperidol [From Haldol] AdvReac Mild AGITATION Verified 01/31/22 16:01 propranolol AdvReac irregular Verified 03/20/22 10:50 heartbeat Assessment & Plan Assessment & Plan (1) Schizoaffective disorder: Qualifiers: Schizoaffective disorder type: unspecified Qualified Code(s): F25.9 - Schizoaffective disorder, unspecified Status: Acute Code(s): F25.9 - Schizoaffective disorder, unspecified Assessment and Plan: 61 yo female, history of schizoaffective disorder, bipolar type. [facility], lability of mood, delusional content. Assisted to hospital with police. Today, labile, angry and significantly abusive on the unit with agitation, pacing, swearing, threatening, disrobing and confusion. Bharat's guardianship in place. Section 12B in place to 02/05. Plan: Pt has refused all diagnostics. Continue current regime, which follows Bharat's order. Pt asks for sleep medication, declines Trazodone. Ativan 1 mg HS prn insomnia Probable section 7/ Collateral contacts. 02/04/22 Bharat's guardianship clarified. Latuda 40 mg daily. If pt refuses Olanzapine 10 mg IM Will file Section VII on 02/05. Attempt alliance building-currently pt is violent, psychotic, labile 02/06/22 Support pt in the milieu Educate regarding behaviors which place her at risk in community Section 7, court 02/12/22. 02/07/22: No med changes, pt declines to engage 02/11/22: [place] building attempts 02/12/22: Continue current regime. 02/13/22: Court 02/26/22. Continue current regime. 02/14 no changes to current regimen 02/15 no changes to current regimen 02/16/[address] 02/26/22 02/17/22 Pt isolated cont tx plan remains withdrawn not engaged . 02/19/22 Continue current plan 02/20/22 Increase Olanzapine to 7.5 mg bid 02/21 continue current tx plan 02/22 continue current tx plan 02/23 Pt tolerated a brief discussion of her thoughts regarding her court date and treatment planning before dismissing tw. Will continue this discussion on 02/24. 02/24/22 Decl[address] discussion of upcoming court date. Requested continuation so we can continue to attempt to work with pt-Court date rescheduled for 03/12/22. 02/26/22 Discontinue Latuda Olanzapine 10 mg bid Will begin to address pt's verbalized concerns she identified today. 03/01/22 Improving. Continue current plan 03/02/22 Improved communication so interventions may be targeted. Continue current regime. 03/04/22 Lamictal 25 mg bid to begin 03/05/22. 03/06/22 Continue current regime. 03/07: continue current mgmt. 03/08: continue current mgmt. 03/09: more active today, better able to engage with MD. continue current mgmt. 03/13/22: Continue current regime 03/15/2022: No changes 03/17/22 continue wellbutrin olanzapinewas engaged 03/18/22 Pt seen in f/u more forthcoming remains with psychotic process but improved continue Wellbutrin olanzapine Depakote 03/20/22 Pt withdrawn dysphoric guarded cont olanzapine 03/23/2022 Increasingly paranoid agitated. Stop Wellbutrin may be causing cycling and worsening agitation Asking for Section 8 hearing to be put off 03/24/2022 Check Depakote level Wellbutrin discontinued continue discharge planning continue olanzapine check mood after Wellbutrin discontinued 03/25/2022 Patient continues to have periods of paranoia and agitation. Wellbutrin discontinued which may been a contributing factor. Depakote levels 70 will increase Depakote to 1250 mg at bedtime 03/26/22 Pt calmer encourage OOB more d/c planning 1250 mg de ? respite p 03/27/2022 Patient more withdrawn and depressed did not respond well to Wellbutrin consider Latuda augmentation. Patient not capable of engaging in discharge discussion at this time 2 depressed overwhelmed encourage shower increase shower inc oob t 03/28 Patient more calm and pleasant and cooperative; does not want any medication changes 03/29 calm and cooperative; Continue with current treatment plan 03/31/22 Continue regime and plan of care. 04/03/22 Discharge to respite next week Increase Sertraline to 50 mg 04/04/22 EKG, Valproate, CBC, CMP for 04/05/22 I spent minutes with the patient and/or on the patient floor today, greater than?50% of which was spent counseling/coordinating care. Patient educated on: medication risk/benefits and therapeutic strategies Informed Consent: further education needed Reason for contiued inpatient stay Substantial Risk for: harm to self, harm to others, inability to function and rapid decompensation
[2022-04-03 17:39] VITALS: RESP 16
[2022-04-03] MEDS: Divalproex Sodium ER 250 MG TAB.ER.24H 1250 MG PO (19:32)
[2022-04-04] MEDS: hydrOXYzine HCL 25 MG TABLET PO (00:22)
[2022-04-04] MEDS: Acetaminophen 325 MG TABLET 650 MG PO ×2 (00:22→21:26)
[2022-04-04] MEDS: diphenhydrAMINE HCl 12.5 MG/5 ML LIQUID 50 MG PO (00:23)
[2022-04-04] MEDS: Benztropine Mesylate 1 MG TABLET PO ×2 (09:19→19:12)
[2022-04-04] MEDS: OLANZapine 7.5 MG TABLET 15 MG PO ×2 (09:19→19:11)
--- NOTE | 2022-04-04 15:48 | P.PNPSI_ITS ---
Subjective Subjective Date of Service: 04/04/22 Reason For Visit: Schizoaffective disorder-Bipolar type Subjective Notes: Section 7 Healthcare Proxy: No Guardianship: No Medical Problems Affecting Mental Status: Yes (pt questions intermittent tingling in left hand) Interim History: pt unclear about sys but no speech impairment or drooping noted, and it is intermittent - no associated sys- Medication Compliance: Yes Side effects from medications: Yes (wonders if itis med side effect ) Attending Groups: No Review of Systems Acute medical concerns: Yes tingling left forearm Review of Systems: no other neuro symptoms complained of Mental Status Exam Mental Status Exam Patient Appearance: Disheveled (hair sticking straight up like romanian) Patient Orientation: Person, Place, Time and Situation Level of Consciousness: Drowsy Patient Behavior: Cooperative Mood Description: Calm Affect Description: Calm Ability to Follow Directions: Fair (reports was angry that dr driscoll raised her depakote to 250mg after her anger at him) Speech Pattern: Clear Hallucinations: None Thought Process: Goal Oriented Judgement: Fair Judgement and Insight: impaired insight into how her increase anger/irritability might have been helped by inc depakote Diagnostics Vital Signs (24Hr): Vital Signs - 24 hr 04/03/22 17:39 Respiratory Rate 16 BMI result Body Mass Index 30.3 Labs Results: 03/07/22 07:14 03/07/22 07:14 Medications Medications Current Medications Acetaminophen (Acetaminophen 325 Mg Tablet) 650 mg PO Q6H PRN PRN Reason: Headache/Pain Mild Scale (1-3) Last Admin: 04/04/22 00:22 Dose: 650 mg Al Hydroxide/Mg Hydroxide (Magnesium Hydrox/Alum Hydrox 30 Ml Oral.Susp) 30 ml PO Q6H PRN PRN Reason: Heartburn/Nausea Benztropine Mesylate (Benztropine Mesylate 1 Mg Tablet) 1 mg PO BID [facility] Last Admin: 04/04/22 09:19 Dose: 1 mg Diphenhydramine HCl (Diphenhydramine Hcl 12.5 Mg/5 Ml Liquid) 50 mg PO BEDTIME PRN PRN Reason: insomnia Last Admin: 04/04/22 00:23 Dose: 50 mg Divalproex Sodium (Divalproex Sodium Er 250 Mg Tab.Er.24h) 1,250 mg PO BEDTIME ANNA Last Admin: 04/03/22 19:32 Dose: 1,250 mg Hydroxyzine HCl (Hydroxyzine Hcl 25 Mg Tablet) 25 mg PO Q6H PRN PRN Reason: Anxiety Last Admin: 04/04/22 00:22 Dose: 25 mg Ibuprofen (Ibuprofen 600 Mg Tablet) 600 mg PO Q8H PRN PRN Reason: knee pain Last Admin: 04/02/22 20:59 Dose: 600 mg Magnesium Hydroxide (Milk Of Magnesia 30 Ml Oral.Susp) 30 ml PO DAILY PRN PRN Reason: Constipation Olanzapine (Olanzapine Odt 10 Mg Tab.Rapdis) 10 mg TRANSLINGU Q8H PRN PRN Reason: psychotic agitation Last Admin: 03/25/22 16:24 Dose: 10 mg Olanzapine (Olanzapine 10 Mg Vial) 15 mg IM BID PRN PRN Reason: if pt refuses po zyprexa-bharat Olanzapine (Olanzapine 7.5 Mg Tablet) 15 mg PO BID ANNA Last Admin: 04/04/22 09:19 Dose: 15 mg Sertraline HCl (Sertraline Hcl 50 Mg Tablet) 50 mg PO BEDTIME ANNA Trazodone HCl (Trazodone Hcl 50 Mg Tablet) 50 mg PO BEDTIME PRN PRN Reason: Insomnia Last Admin: 03/31/22 23:56 Dose: 50 mg Allergies Allergies Allergy/AdvReac Type Severity Reaction Status Date / Time haloperidol [From Haldol] AdvReac Mild AGITATION Verified 01/31/22 16:01 propranolol AdvReac irregular Verified 03/20/22 10:50 heartbeat Assessment & Plan Assessment & Plan (1) Schizoaffective disorder: Qualifiers: Schizoaffective disorder type: unspecified Qualified Code(s): F25.9 - Schizoaffective disorder, unspecified Status: Acute Code(s): F25.9 - Schizoaffective disorder, unspecified Assessment and Plan: 61 yo female, history of schizoaffective disorder, bipolar type. Pt found incoherent in [employer] with confusion, lability of mood, delusional content. Assisted to hospital with police. Today, labile, angry and significantly abusive on the unit with agitation, pacing, swearing, threatening, disrobing and confusion. Bharat's guardianship in place. Section 12B in place to 02/05. Plan: Pt has refused all diagnostics. Continue current regime, which follows Bharat's order. Pt asks for sleep medication, declines Trazodone. Ativan 1 mg HS prn insomnia Probable section 7/ Collateral contacts. 02/04/22 Bharat's guardianship clarified. Latuda 40 mg daily. If pt refuses Olanzapine 10 mg IM Will file Section VII on 02/05. Attempt alliance building-currently pt is violent, psychotic, labile 02/06/22 Support pt in the milieu Educate regarding behaviors which place her at risk in community Section 7, court 02/12/22. 02/07/22: No med changes, pt declines to engage 02/11/22: [place] building attempts 02/12/22: Continue current regime. 02/13/22: Court 02/26/22. Continue current regime. 02/14 no changes to current regimen 02/15 no changes to current regimen 02/16/[address] 02/26/22 02/17/22 Pt isolated cont tx plan remains withdrawn not engaged . 02/19/22 Continue current plan 02/20/22 Increase Olanzapine to 7.5 mg bid 02/21 continue current tx plan 02/22 continue current tx plan 02/23 Pt tolerated a brief discussion of her thoughts regarding her court date and treatment planning before dismissing tw. Will continue this discussion on 02/24. 02/24/22 [address] of upcoming court date. Requested continuation so we can continue to attempt to work with pt-Court date rescheduled for 03/12/22. 02/26/22 Discontinue Latuda Olanzapine 10 mg bid Will begin to address pt's verbalized concerns she identified today. 03/01/22 Improving. Continue current plan 03/02/22 Improved communication so interventions may be targeted. Continue current regime. 03/04/22 Lamictal 25 mg bid to begin 03/05/22. 03/06/22 Continue current regime. 03/07: continue current mgmt. 03/08: continue current mgmt. 03/09: more active today, better able to engage with MD. continue current mgmt. 03/13/22: Continue current regime 03/15/2022: No changes 03/17/22 continue wellbutrin olanzapinewas engaged 03/18/22 Pt seen in f/u more forthcoming remains with psychotic process but improved continue Wellbutrin olanzapine Depakote 03/20/22 Pt withdrawn dysphoric guarded cont olanzapine 03/23/2022 Increasingly paranoid agitated. Stop Wellbutrin may be causing cycling and worsening agitation Asking for Section 8 hearing to be put off 03/24/2022 Check Depakote level Wellbutrin discontinued continue discharge planning continue olanzapine check mood after Wellbutrin discontinued 03/25/2022 Patient continues to have periods of paranoia and agitation. Wellbutrin discontinued which may been a contributing factor. Depakote levels 70 will increase Depakote to 1250 mg at bedtime 03/26/22 Pt calmer encourage OOB more d/c planning 1250 mg de ? respite p 03/27/2022 Patient more withdrawn and depressed did not respond well to Wellbutrin consider Latuda augmentation. Patient not capable of engaging in discharge discussion at this time 2 depressed overwhelmed encourage shower increase shower inc oob t 03/28 Patient more calm and pleasant and cooperative; does not want any medication changes 03/29 calm and cooperative; Continue with current treatment plan 03/31/22 Continue regime and plan of care. 04/03/22 Discharge to respite next week Increase Sertraline to 50 mg 04/04/22 EKG, Valproate, CBC, CMP for 04/05/22 Plan continue current treatment plan further watch co left forearm tingling I spent minutes with the patient and/or on the patient floor today, greater than?50% of which was spent counseling/coordinating care. Patient educated on: medication risk/benefits and medical condition Informed Consent: further education needed Reason for contiued inpatient stay Substantial Risk for: inability to function, rapid decompensation and med/psych decompensation
[2022-04-04 15:57] VITALS: BP 141/73; PULSE 107
[2022-04-04] MEDS: Divalproex Sodium ER 250 MG TAB.ER.24H 1250 MG PO (19:11)
[2022-04-04] MEDS: Sertraline HCL 50 MG TABLET PO (19:12)
[2022-04-04] MEDS: Ibuprofen 600 MG TABLET PO (21:26)
[2022-04-05 08:03] LABS: Valproate 89.5 mcg/mL (50.0-100.0)
[2022-04-05 08:04] LABS: Alanine Aminotransferase 11 U/L (0-31); Albumin Level 3.6 g/dL (3.5-5.0); Alkaline Phosphatase 73 U/L (39-117); Anion Gap 16 (12-20); Aspartate Amino Transferase 14 U/L (5-31); Bilirubin Total < 0.2 mg/dL (0.0-1.0); Blood Urea Nitrogen 22 mg/dL (9-16); Calcium 9.3 mg/dL (8.4-10.2); Carbon Dioxide 27 mmol/L (22-29); Chloride 104 mmol/L (96-108); Creatinine Clr Calc Pharmacy 79.9; Estimated Glomerular Filt Rate > 60; Glucose Random 110 mg/dL (60-115); Potassium 4.9 mmol/L (3.3-5.1); Sodium 142 mmol/L (135-145); Total Protein 6.2 g/dL (6.5-8.0)
[2022-04-05] MEDS: Benztropine Mesylate 1 MG TABLET PO ×2 (08:34→20:20)
[2022-04-05] MEDS: OLANZapine 7.5 MG TABLET 15 MG PO ×2 (08:34→20:18)
[2022-04-05 08:35] VITALS: BP 122/76; PULSE 97; RESP 18; TEMP 36.2; O2SAT 97
[2022-04-05 08:41] LABS: MANUAL DIFF FLAG NO
[2022-04-05 08:43] LABS: Basophils Absolute Auto 0.1 X10*3/uL (0.0-0.2); Basophils Percent Auto 1.2 % (0-2); Eosinophils Absolute Auto 0.1 X10*3/uL (0.0-0.4); Eosinophils Percent Auto 1.6 % (0-4); Hematocrit 42.5 % (37.0-47.0); Hemoglobin 13.8 g/dl (12.0-16.0); Imm Gran Abs Auto 0.02 X10*3/uL (0.00-0.03); Imm Gran Pct Auto 0.3 % (0.0-0.4); Lymphocytes Absolute Auto 2.1 X10*3/uL (1.2-4.9); Lymphocytes Percent Auto 35.4 % (20-40); Mean Corpuscular HGB Conc 32.5 g/dl (31.0-35.0); Mean Corpuscular Hemoglobin 30.7 pg (27.0-33.0); Mean Corpuscular Volume 94.4 fL (80.0-98.0); Mean Platelet Volume 11.1 fL (9.4-12.3); Monocytes Absolute Auto 0.5 X10*3/uL (0.1-1.2); Monocytes Percent Auto 9.3 % (2-11); Neutrophils Percent Auto 52.2 % (45-73); Platelet Count 174 X10*3/uL (160-400); Red Cell Distribution Width 13.3 % (11.0-16.0); White Blood Count 5.8 X10*3/uL (4.8-10.8)
--- NOTE | 2022-04-05 10:00 | ECG_ITS ---
Test Reason : qtc Blood Pressure : / mmHG Vent. Rate : 106 BPM Atrial Rate : 106 BPM P-R Int : 146 ms QRS Dur : 072 ms QT Int : 324 ms P-R-T Axes : 068 061 084 degrees QTc Int : 430 ms Sinus tachycardia Otherwise normal ECG When compared with ECG of 31-JAN-2022 16:08, No significant change was found Referred By: Jessica Nunez Electronically Signed By:DARYL MCGHEE
--- NOTE | 2022-04-05 12:04 | HO.PSYCHPN ---
Subjective Subjective Date of Service: 04/05/22 Reason For Visit: Schizoaffective disorder-Bipolar type Subjective Notes: Section 7 Healthcare Proxy: No Guardianship: No Medical Problems Affecting Mental Status: No Interim History: Pt reports feeling off- feels like she is going to - doesnt want to denies it is suicide thought but then describes concerning ah in back of her head telling her they will help it happen. Discussed adding perphenazine- to current regimen. Pt is anxious about dc to resipt as she has an incident where she told a staff they were an a_hole while angry and when she walked away the staff called EMT/911. Medication Compliance: Yes Side effects from medications: No (denies any arm drop today) Attending Groups: No Review of Systems Acute medical concerns: No Mental Status Exam Mental Status Exam Patient Appearance: Disheveled and Unkempt Patient Orientation: Person, Place, Time and Situation Level of Consciousness: Awake and Alert Patient Behavior: Talkative Mood Description: Anxious Affect Description: Appropriate and Apprehensive Patient Cognition Impaired: No Ability to Follow Directions: Fair Speech Pattern: Clear and Appropriate Hallucinations: Auditory (voice in back of head saying they can help her ) Delusions: Paranoid Ideation Thought Process: Intact and Goal Oriented Thought Content: positive for Preoccupation and positive for Suicidal Ideation Depressive Symptoms: Increased Anxiety and Thoughts of /Suicide Judgement: Poor Diagnostics Vital Signs (24Hr): Vital Signs - 24 hr 04/04/22 15:57 04/05/22 08:35 Temperature 97.1 F Pulse Rate 107 H 97 Respiratory Rate 18 Blood Pressure 141/73 H 122/76 Pulse Oximetry 97 Oxygen Delivery Method Room Air BMI result Body Mass Index 30.3 Labs Results: 04/05/22 07:29 04/05/22 07:29 Labs: Laboratory Results - last 48 hr 04/05/22 04/05/22 07:29 07:29 WBC 5.8 RBC 4.50 Hgb 13.8 Hct 42.5 MCV 94.4 MCH 30.7 MCHC 32.5 RDW 13.3 Plt Count 174 MPV 11.1 Immature Gran % (Auto) 0.3 Neut % (Auto) 52.2 Lymph % (Auto) 35.4 [place] % (Auto) 9.3 Eos % (Auto) 1.6 Baso % (Auto) 1.2 Lymph # (Auto) 2.1 [place] # (Auto) 0.5 Eos # (Auto) 0.1 Baso # (Auto) 0.1 Abs Immat Gran (auto) 0.02 Absolute Neuts (auto) 3.0 Absolute Nucleated RBC 0.000 Nucleated RBC % (auto) 0.0 Sodium 142 Potassium 4.9 Chloride 104 Carbon Dioxide 27 Anion Gap 16 BUN 22 H Creatinine 0.82 Estim Creat Clear Calc 79.9 Estimated GFR > 60 Random Glucose 110 Calcium 9.3 Total Bilirubin < 0.2 AST 14 ALT 11 Alkaline Phosphatase 73 Total Protein 6.2 L Albumin 3.6 Valproic Acid 89.5 Medications Medications Current Medications Acetaminophen (Acetaminophen 325 Mg Tablet) 650 mg PO Q6H PRN PRN Reason: Headache/Pain Mild Scale (1-3) Last Admin: 04/04/22 21:26 Dose: 650 mg Al Hydroxide/Mg Hydroxide (Magnesium Hydrox/Alum Hydrox 30 Ml Oral.Susp) 30 ml PO Q6H PRN PRN Reason: Heartburn/Nausea Benztropine Mesylate (Benztropine Mesylate 1 Mg Tablet) 1 mg PO BID [facility] Last Admin: 04/05/22 08:34 Dose: 1 mg Diphenhydramine HCl (Diphenhydramine Hcl 12.5 Mg/5 Ml Liquid) 50 mg PO BEDTIME PRN PRN Reason: insomnia Last Admin: 04/04/22 00:23 Dose: 50 mg Divalproex Sodium (Divalproex Sodium Er 250 Mg Tab.Er.24h) 1,250 mg PO BEDTIME ANNA Last Admin: 04/04/22 19:11 Dose: 1,250 mg Hydroxyzine HCl (Hydroxyzine Hcl 25 Mg Tablet) 25 mg PO Q6H PRN PRN Reason: Anxiety Last Admin: 04/04/22 00:22 Dose: 25 mg Ibuprofen (Ibuprofen 600 Mg Tablet) 600 mg PO Q8H PRN PRN Reason: knee pain Last Admin: 04/04/22 21:26 Dose: 600 mg Magnesium Hydroxide (Milk Of Magnesia 30 Ml Oral.Susp) 30 ml PO DAILY PRN PRN Reason: Constipation Olanzapine (Olanzapine Odt 10 Mg Tab.Rapdis) 10 mg TRANSLINGU Q8H PRN PRN Reason: psychotic agitation Last Admin: 03/25/22 16:24 Dose: 10 mg Olanzapine (Olanzapine 10 Mg Vial) 15 mg IM BID PRN PRN Reason: if pt refuses po zyprexa-bharat Olanzapine (Olanzapine 7.5 Mg Tablet) 15 mg PO BID ANNA Last Admin: 04/05/22 08:34 Dose: 15 mg Sertraline HCl (Sertraline Hcl 50 Mg Tablet) 50 mg PO BEDTIME ANNA Last Admin: 04/04/22 19:12 Dose: 50 mg Trazodone HCl (Trazodone Hcl 50 Mg Tablet) 50 mg PO BEDTIME PRN PRN Reason: Insomnia Last Admin: 03/31/22 23:56 Dose: 50 mg Allergies Allergies Allergy/AdvReac Type Severity Reaction Status Date / Time haloperidol [From Haldol] AdvReac Mild AGITATION Verified 01/31/22 16:01 propranolol AdvReac irregular Verified 03/20/22 10:50 heartbeat Assessment & Plan Assessment & Plan (1) Schizoaffective disorder: Qualifiers: Schizoaffective disorder type: unspecified Qualified Code(s): F25.9 - Schizoaffective disorder, unspecified Status: Acute Code(s): F25.9 - Schizoaffective disorder, unspecified Assessment and Plan: 61 yo female, history of schizoaffective disorder, bipolar type. Pt found incoherent in [facility] with confusion, lability of mood, delusional content. Assisted to hospital with police. Today, labile, angry and significantly abusive on the unit with agitation, pacing, swearing, threatening, disrobing and confusion. Bharat's guardianship in place. Section [address] place to 02/05. Plan: Pt has refused all diagnostics. Continue current regime, which follows Bharat's order. Pt asks for sleep medication, declines Trazodone. Ativan 1 mg HS prn insomnia Probable section 7/8 Collateral contacts. 02/04/22 Bharat's guardianship clarified. Latuda 40 mg daily. If pt refuses Olanzapine 10 mg IM Will file Section VII on 02/05. Attempt alliance building-currently pt is violent, psychotic, labile 02/06/22 Support pt in the milieu Educate regarding behaviors which place her at risk in community Section 7, court 02/12/22. 02/07/22: No med changes, pt declines to engage 02/11/22: [place] building attempts 02/12/22: Continue current regime. 02/13/22: Court 8/25/22. Continue current regime. 02/14 no changes to current regimen 02/15 no changes to current regimen 02/16/[address] 02/26/22 02/17/22 Pt isolated cont tx plan remains withdrawn not engaged . 02/19/22 Continue current plan 02/20/22 Increase Olanzapine to 7.5 mg bid 02/21 continue current tx plan 02/22 continue current tx plan 02/23 Pt tolerated a brief discussion of her thoughts regarding her court date and treatment planning before dismissing tw. Will continue this discussion on 02/24. 02/24/[address] upcoming [address] date. Requested continuation so we can continue to attempt to work with pt-Court date rescheduled for 03/12/22. 02/26/22 Discontinue Latuda Olanzapine 10 mg bid Will begin to address pt's verbalized concerns she identified today. 03/01/22 Improving. Continue current plan 03/02/22 Improved communication so interventions may be targeted. Continue current regime. 03/04/22 Lamictal 25 mg bid to begin 03/05/22. 03/06/22 Continue current regime. 03/07: continue current mgmt. 03/08: continue current mgmt. 03/09: more active today, better able to engage with MD. continue current mgmt. 03/13/22: Continue current regime 03/15/2022: No changes 03/17/22 continue wellbutrin olanzapinewas engaged 03/18/22 Pt seen in f/u more forthcoming remains with psychotic process but improved continue Wellbutrin olanzapine Depakote 03/20/22 Pt withdrawn dysphoric guarded cont olanzapine 03/23/2022 Increasingly paranoid agitated. Stop Wellbutrin may be causing cycling and worsening agitation Asking for Section 8 hearing to be put off 03/24/2022 Check Depakote level Wellbutrin discontinued continue discharge planning continue olanzapine check mood after Wellbutrin discontinued 03/25/2022 Patient continues to have periods of paranoia and agitation. Wellbutrin discontinued which may been a contributing factor. Depakote levels 70 will increase Depakote to 1250 mg at bedtime 03/26/22 Pt calmer encourage OOB more d/c planning 1250 mg de ? respite p 03/27/2022 Patient more withdrawn and depressed did not respond well to Wellbutrin consider Latuda augmentation. Patient not capable of engaging in discharge discussion at this time 2 depressed overwhelmed encourage shower increase shower inc oob t 03/28 Patient more calm and pleasant and cooperative; does not want any medication changes 03/29 calm and cooperative; Continue with current treatment plan 03/31/22 Continue regime and plan of care. 04/03/22 Discharge to respite next week Increase Sertraline to 50 mg 04/04/22 EKG, Valproate, CBC, CMP for 04/05/2204/05 added in perphenazine for prn to try out to see if it helps pt already on max olanzapine Plan continue current treatment plan further watch co left forearm tingling 04/05 no further tingling or forearm drop, no neuro lateralizing sys no slurred speech I spent minutes with the patient and/or on the patient floor today, greater than?50% of which was spent counseling/coordinating care. Patient educated on: medication risk/benefits and other (psychiatric sys) Informed Consent: understands Reason for contiued inpatient stay Substantial Risk for: harm to self and rapid decompensation
[2022-04-05 16:45] VITALS: BP 122/68; PULSE 101; TEMP 36.2
[2022-04-05] MEDS: Ibuprofen 600 MG TABLET PO (16:52)
[2022-04-05] MEDS: Divalproex Sodium ER 250 MG TAB.ER.24H 1250 MG PO (20:19)
[2022-04-05] MEDS: Sertraline HCL 50 MG TABLET PO (20:19)
[2022-04-06] MEDS: diphenhydrAMINE HCl 12.5 MG/5 ML LIQUID 50 MG PO (00:06)
[2022-04-06] MEDS: Benztropine Mesylate 1 MG TABLET PO (08:38)
[2022-04-06] MEDS: OLANZapine 7.5 MG TABLET 15 MG PO (08:38)
[2022-04-06 09:38] VITALS: BP 132/64; PULSE 109; RESP 20; TEMP 36.7; O2SAT 94
--- NOTE | 2022-04-06 12:09 | PC.NURSE ---
EKG sent to
[2022-04-06 13:57] LABS: COVID-19 Test Negative (Negative); IDNOW Serial# 16C4AD1C
--- NOTE | 2022-04-06 16:52 | PM.PSYDC ---
DS: Providers Provider Date of Service: 04/06/22 Date of admission: 02/02/22 15:31 Date of discharge: 04/06/22 Primary care physician: Unknown Physician Admitting clinician: Jessica Nunez Attending physician on admission: Ney Irvin Consults: 03/31/22 09:10 Consult to Orthopedics Routine Consulting Provider: Trang Gomez Reason for consultation: R knee pain, pt reports it pops , brace not effective Has provider been notified: No Attending physician on discharge: Ney Irvin Discharging clinician: Jessica Nunez DS: Diagnosis Discharge Diagnosis (1) Schizoaffective disorder: Status: Acute DS: Medications Discharge Medications Home Medications: Previous Rx's Medication Instructions Recorded acetaminophen 325 mg tablet 650 mg PO Q6H PRN Headache/Pain 04/06/22 Mild Scale (1-3) #90 tabs benztropine 1 mg tablet 1 mg PO BID #60 tabs 04/06/22 divalproex 250 mg tablet,extended 1,250 mg PO BEDTIME #150 tabs 04/06/22 release 24 hr ibuprofen 600 mg tablet 600 mg PO Q8H PRN knee pain #60 04/06/22 tabs olanzapine 10 mg disintegrating 10 mg translingual Q8H PRN 04/06/22 tablet psychotic agitation #30 tabs olanzapine 10 mg intramuscular 15 mg IM BID PRN if pt refuses po 04/06/22 solution christa-alessia #5 ea olanzapine 7.5 mg tablet 15 mg PO BID #120 tabs 04/06/22 sertraline 50 mg tablet 50 mg PO BEDTIME #30 tabs 04/06/22 trazodone 50 mg tablet 50 mg PO BEDTIME PRN Insomnia #3 04/06/22 tabs Mental Status Exam Mental Status Exam Patient Appearance: Disheveled Patient Orientation: Person, Place, Time and Situation Level of Consciousness: Sedated (initially in bed, awakens immediately, no evidence of sedation.) and Alert Patient Behavior: Appropriate, Cooperative, Isolative and Good Eye Contact Mood Description: Flat Affect Description: Flat Patient Cognition Impaired: No Ability to Follow Directions: Good Speech Pattern: Spontaneous Speech Memory Description: Remote Impaired and Episodic Impaired Hallucinations: None Delusions: Not Present Perceptual Disturbances: Depersonalization and Derealization Thought Process: Distracted and Rumination Thought Content: positive for Perseveration, positive for Suicidal Ideation (denies) and positive for Homicidal Ideation (denies) Depressive Symptoms: Low Self Esteem and Difficulty Concentrating Judgement: Good Data Data Completed and Pending Completed studies during hospitalization [Text1]: 04/05/22 04/05/22 04/06/22 07:29 07:29 13:00 WBC 5.8 RBC 4.50 Hgb 13.8 Hct 42.5 MCV 94.4 MCH 30.7 MCHC 32.5 RDW 13.3 Plt Count 174 MPV 11.1 Immature Gran % (Auto) 0.3 Neut % (Auto) 52.2 Lymph % (Auto) 35.4 [place] % (Auto) 9.3 Eos % (Auto) 1.6 Baso % (Auto) 1.2 Lymph # (Auto) 2.1 [place] # (Auto) 0.5 Eos # (Auto) 0.1 Baso # (Auto) 0.1 Abs Immat Gran (auto) 0.02 Absolute Neuts (auto) 3.0 Absolute Nucleated RBC 0.000 Nucleated RBC % (auto) 0.0 Sodium 142 Potassium 4.9 Chloride 104 Carbon Dioxide 27 Anion Gap 16 BUN 22 H Creatinine 0.82 Estim Creat Clear Calc 79.9 Estimated GFR > 60 Random Glucose 110 Calcium 9.3 Total Bilirubin < 0.2 AST 14 ALT 11 Alkaline Phosphatase 73 Total Protein 6.2 L Albumin 3.6 Valproic Acid 89.5 COVID-19 (RIDDHI) Negative COVID-19 Clin Com See Note 01/31/22 21:17 Urine clean catch - Urine greenberg top Urine Culture - Final No growth. DS: Summary Hospital Course Hospital Course: Admission to adult psychiatry for exacerbation of schizoaffective disorder, bipolar type. Section seven was filed. Jhon was able to work with the team and we did not have to approach the court for Section eight status. Latuda was discontinued. Olanzapine, Depakote, Sertraline and Trazodone were initiated. Benztropine doses were adjusted. Pt will transition to home via [facility] respite. Time spent discussing smoking cessation with patient: 3 to 10 minutes Status at Discharge Functional status at discharge: independent ambulation Overall status at discharge: patient is back to baseline Time Spent with Patient Time attestation: Total time spent providing and/or coordinating discharge services: 35 Time spent: Greater than 30 minutes Discharge Plan Discharge Anticipated Discharge Date/Time: 04/06/22 14:44 Patient Disposition: Xfer to Respite Facility Discharge Diagnosis: Schizoaffective disorder Referrals: Psych Prescriber: Rod Seo ([facility]) [Other] - 04/29/22 2:00 pm (In office ) [facility] Charging Board Operator: Tala [Other] - 1 Week VNA: [facility] [Other] - 1 Week (Call to arrange for discharge from respite Their fax [phone]) [facility] [Other] - 1 Week (Please follow up within one week) Discharge Medications: New acetaminophen 325 mg Tablet 650 mg PO Q6H PRN (Reason: Headache/Pain Mild Scale (1-3)) Qty: 90 0RF olanzapine 7.5 mg Tablet 15 mg PO BID Qty: 120 0RF benztropine 1 mg Tablet 1 mg PO BID Qty: 60 0RF trazodone 50 mg Tablet 50 mg PO BEDTIME PRN (Reason: Insomnia) Qty: 3 0RF olanzapine 10 mg Tablet,Disintegrating 10 mg translingual Q8H PRN (Reason: psychotic agitation) Qty: 30 0RF ibuprofen 600 mg Tablet 600 mg PO Q8H PRN (Reason: knee pain) Qty: 60 0RF sertraline 50 mg Tablet 50 mg PO BEDTIME Qty: 30 0RF divalproex 250 mg Tablet Extended Release 24 Hr 1,250 mg PO BEDTIME Qty: 150 0RF olanzapine 10 mg Recon Soln 15 mg IM BID PRN (Reason: if pt refuses po zyprexa-alessia) Qty: 5 0RF Discontinued benztropine 0.5 mg Tablet 0.5 mg PO BID Qty: 60 0RF olanzapine 5 mg tablet 5 mg PO BID Qty: 60 0RF Latuda 40 mg Tablet 40 mg PO DAILY Qty: 30 0RF Discharge Orders: Discharge Order (Routine); Ordered 04/06/22 Ordered By: Jessica Nunez Diet: Advance to usual diet Activity on Discharge: As tolerated Stand Alone Forms: Patient Portal Discharge page, Community Support Care Plan Goals: Maintain mood and safe behaviors Take medications as directed Practice coping skills Continue with out patient providers in scheduled appointments and to reach out to as needed. Health Concerns: Stable mood and behaviors Labs on 04/05/22 Valproate Level 89.5 Complete Blood Count is normal Chemistry Panel is normal, however, your BUN is elevated. We encourage you to monitor your fluid intake. Plan of Treatment: Follow up with out patient providers Take medications as directed Assessment: non suicidal, non homicidal non manic, non psychotic apprehensive Discharge Date/Time: 04/06/22 13:30
== END 2022-04-06 13:30 | DRG 885 ==
LOC: HO.ED 19:09 → HO.PM5 02-02 15:36
PROVIDERS: Registered Nurse; Admitting Provider Psychiatry & Neurology Psychiatry; Emergency Provider Emergency Medicine; Visit Provider Clinical Nurse Specialist Psychiatric/Mental Health, Adult
DX: F25.0 Schizoaffective disorder, bipolar type (principal); Z20.822 Contact with and (suspected) exposure to COVID-19; Z88.8 Allergy status to other drugs, medicaments and biological substances; Z79.899 Other long term (current) drug therapy
CPT/HCPCS: 36415; 80048; 80053; 80061; 80076; 80164; 80307; 81001; 82077; 82140; 82607; 82746; 83036; 83735; 84443; 84484; 85025; 85610; 87086; 87635; 93005; 96360; 96361; 96372; 99285; J1200; J3486

== ENCOUNTER 2022-05-14 17:07 | Emergency (ER) | payer OTHER, SELFPAY ==
--- NOTE | 2022-05-14 18:00 | MHC.CARE ---
Pt's outpatient psychiatrist (Rod Seo [phone]) from [facility] contacted the CARE Team to notify of an expect. He reports that pt was d/c from one of our units and stepped down to [facility]. He states [facility] called the today with an unusual presentation and he was concerned therefore advised them to send her to the ED. He states that he believes something is going on organically with pt, as she is presenting with tremors (Can't hold a glass), disoriented and he reports this is not a typical psychotic decompensation for her. He reports concerns because this off baseline and hopes that there can be a psychiatrist who can assess her. He states pt is on zyprexa and zoloft and unsure what her Depakote level is or if the increased dosage is too much for her. He states that he is available if anyone wants to reach out to him. Called charge nurse to notify however haven't received a call back.
== END 2022-05-14 18:02 | disposition left against medical advice (07) ==
PROVIDERS: Emergency Provider Emergency Medicine
DX: R41.3 Other amnesia (principal); R25.1 Tremor, unspecified; F25.9 Schizoaffective disorder, unspecified; Z79.899 Other long term (current) drug therapy

== ENCOUNTER 2022-05-16 07:44 | Outpatient (REF) | payer OTHER, SELFPAY ==
[2022-05-16 08:08] LABS: MANUAL DIFF FLAG NO
[2022-05-16 08:16] LABS: Basophils Absolute Auto 0.1 X10*3/uL (0.0-0.2); Basophils Percent Auto 0.8 % (0-2); Eosinophils Absolute Auto 0.1 X10*3/uL (0.0-0.4); Eosinophils Percent Auto 1.2 % (0-4); Hematocrit 41.5 % (37.0-47.0); Hemoglobin 13.7 g/dl (12.0-16.0); Imm Gran Abs Auto 0.01 X10*3/uL (0.00-0.03); Imm Gran Pct Auto 0.2 % (0.0-0.4); Lymphocytes Absolute Auto 2.4 X10*3/uL (1.2-4.9); Lymphocytes Percent Auto 39.4 % (20-40); Mean Corpuscular Hemoglobin 31.4 pg (27.0-33.0); Mean Corpuscular Volume 95.2 fL (80.0-98.0); Mean Platelet Volume 10.6 fL (9.4-12.3); Monocytes Absolute Auto 0.6 X10*3/uL (0.1-1.2); Monocytes Percent Auto 10.3 % (2-11); Neutrophils Absolute Auto 2.9 x10*3/uL (2.0-8.3); Neutrophils Percent Auto 48.1 % (45-73); Platelet Count 184 X10*3/uL (160-400); Red Blood Count 4.36 X10*6/uL (4.20-5.50)
[2022-05-16 08:17] LABS: Ammonia 38 umol/L (13-55)
[2022-05-16 08:30] LABS: Alanine Aminotransferase 27 U/L (0-31); Alkaline Phosphatase 73 U/L (39-117); Aspartate Amino Transferase 29 U/L (5-31); Bilirubin Direct < 0.2 mg/dL (0.0-0.5); Bilirubin Total 0.3 mg/dL (0.0-1.0); Total Protein 6.7 g/dL (6.5-8.0)
[2022-05-16 08:36] LABS: Valproate 67.8 mcg/mL (50.0-100.0)
== END 2022-05-16 07:45 | disposition home or self-care (01) ==
LOC: HO.LAB 07:44
PROVIDERS: PCP Student in an Organized Health Care Education/Training Program; Visit Provider Registered Nurse Psychiatric/Mental Health
DX: Z79.899 Other long term (current) drug therapy (principal)
CPT/HCPCS: 36415; 80076; 80164; 82140; 85025

== ENCOUNTER 2022-12-20 21:37 | Emergency (ER) | payer OTHER, SELFPAY ==
[2022-12-20 21:48] VITALS: BP 138/87; PULSE 101; RESP 16; TEMP 36.4; O2SAT 93; BMI 27.9
--- NOTE | 2022-12-20 22:09 | ECG_ITS ---
Test Reason : accidental med error Blood Pressure : / mmHG Vent. Rate : 082 BPM Atrial Rate : 082 BPM P-R Int : 154 ms QRS Dur : 080 ms QT Int : 372 ms P-R-T Axes : 019 038 065 degrees QTc Int : 434 ms Normal sinus rhythm Cannot rule out Anterior infarct , age undetermined Abnormal ECG When compared with ECG of 06-APR-2022 11:32, No significant change was found Referred By: Luz Woods Electronically Signed By:JASON WILLAMS
--- NOTE | 2022-12-20 22:14 | PC.NURSE ---
Poison Control contacted At 2210: 250mg of clozaril taken at 2030, recommend cardiac monitoring for 12 hrs, until 0830. Watch for: [employer] depression, agitation, confusion, pinpoint pupils, dry mouth, hypotension, seizures, tachycardia, QT interval changes. Monitor for neuroleptic malignant syndrome: malignant hypothermia, muscle rigidity. Check Cbc/CMP/Magnesium - supplement Mg and K if low.
[2022-12-20 22:20] VITALS: BP 131/82; PULSE 85; RESP 18; TEMP 37; O2SAT 99
[2022-12-20 22:43] LABS: MANUAL DIFF FLAG NO
--- NOTE | 2022-12-20 22:43 | ED_ITS ---
HPI - General Adult General Chief complaint: General Medical Stated complaint: took meds by accident Time Seen by Provider: 12/20/22 21:59 Source: patient Mode of arrival: ambulatory Limitations: no limitations History of Present Illness HPI narrative: Patient comes to the emergency room accompanied by respite staff. Today, patient accidentally was given the wrong medication. Usually, patient takes Zyprexa and sertraline. Instead of getting her normal medications, patient was given 250 mg of clozaril. Patient was given the medication at 20:30, almost 2 hours ago. Patient is asymptomatic Related Data Previous Rx's Medication Instructions Recorded acetaminophen 325 mg tablet 650 mg PO Q6H PRN Headache/Pain 04/06/22 Mild Scale (1-3) #90 tabs benztropine 1 mg tablet 1 mg PO BID #60 tabs 04/06/22 divalproex 250 mg tablet,extended 1,250 mg PO BEDTIME #150 tabs 04/06/22 release 24 hr ibuprofen 600 mg tablet 600 mg PO Q8H PRN knee pain #60 04/06/22 tabs olanzapine 10 mg disintegrating 10 mg translingual Q8H PRN 04/06/22 tablet psychotic agitation #30 tabs olanzapine 10 mg intramuscular 15 mg IM BID PRN if pt refuses po 04/06/22 solution zyprexa-alessia #5 ea olanzapine 7.5 mg tablet 15 mg PO BID #120 tabs 04/06/22 sertraline 50 mg tablet 50 mg PO BEDTIME #30 tabs 04/06/22 trazodone 50 mg tablet 50 mg PO BEDTIME PRN Insomnia #3 04/06/22 tabs Allergies Allergy/AdvReac Type Severity Reaction Status Date / Time haloperidol [From Haldol] AdvReac Mild AGITATION Verified 12/20/22 21:47 propranolol AdvReac irregular Verified 12/20/22 21:47 heartbeat Review of Systems Review of Systems: Constitutional : No Weight loss, No Fever, No Chills, No Night Sweats, No Fatigue, No Malaise ENT/Mouth : No Hearing loss, No Ear Pain, No Nasal Congestion, No Sinus Pain, No Hoarseness, No sore throat, No Rhinorrhea, No Swallowing Difficulty Eyes: No Eye Pain, No Swelling, No Redness, No Foreign Body, No Discharge, No Vision Changes Cardiovascular : No Chest Pain, No SOB, No Dyspnea on Exertion, No Orthopnea, No Edema, No Palpitations Respiratory : No Cough, No Sputum, No Wheezing, No Smoke Exposure, No Dyspnea Gastrointestinal : No Nausea, No Vomiting, No Diarrhea, No Constipation, No abdominal Pain, No Hematochezia, No Melena Genitourinary : no irregular bleeding, No Dysuria, No Urinary Frequency, No Hematuria, No Urinary Incontinence, No Urgency, No Flank Pain, No Urinary Flow Changes, No Hesitancy Musculoskeletal : No joint pain, No Myalgias, No Joint Swelling Skin : No Skin Lesions, No rash Neuro : No Weakness, No Numbness, No Paresthesias, No Loss of Consciousness, No Dizziness, No Headache Psych : No Anxiety/Panic, No Depression, No SI/HI/AH/VH, No Social Issues, Heme/Lymph: No Bruising, No Bleeding,No Lymphadenopathy Endocrine : No Polyuria, No Polydipsia, No Temperature Intolerance PMFSH Past Medical History Medical History Schizoaffective disorder Social History Social History (Updated 12/01/21 @ 09:17 by Ryann Delgadillo DO) Household Members: None Housing: Apartment Do you presently have visiting nurse or other home services: No Unable to assess alcohol history related to: Unable to respond Alcohol intake: never Patient Tobacco Use Status: Tobacco use Unknown Smoked in Last 30 Days: No Use of substances other than those prescribed or required for medical reasons: No Advance Directives: No Advance Directives Information Provided: No Patient : No service: No Sexual orientation: Did not discuss Physical Exam ED Vital Signs: Vital Signs - 24 hr 12/20/22 21:48 12/20/22 22:20 Temperature 97.6 F 98.6 F Pulse Rate 101 H 85 Respiratory Rate 16 18 Blood Pressure 138/87 131/82 Pulse Oximetry 93 99 Oxygen Delivery Method Room Air Room Air BMI result Body Mass Index 27.9 Const Other: Appearance: Alert. Oriented X3. No acute distress. Eyes: Pupils equal, round and reactive to light. ENT: Pharynx normal. Neck: Normal inspection. Neck supple. No lymph nodes noted. No crepitus CVS: Normal heart rate and rhythm. Pulses normal. Normal S1 and S2 Respiratory: No respiratory distress. Breath sounds normal. No Wheezing. No rales Abdomen: Soft and nontender. No rigidity. No distention. Skin: Skin warm and dry. Normal skin color. Normal skin turgor. Extremities: No lower extremity edema. No Lacerations. No Rash Neuro: Oriented X 3. No motor deficit. No sensory deficit. Moving all extremities. No slurred speech. CN 2 through 12 grossly intact Psych: calm, cooperative, normal affect Course Course Course Narrative: -of patient's labs pending, EKG pending Medical Decision Making Medical Decision Making [facility] Narrative: -EKG my interpretation: Normal sinus rhythm, heart rate 82, no ST segment depression or elevation, no T-wave inversion, QTC 434 -vital signs on arrival, blood pressure 131/82, heart rate 85, oxygen saturation 99% on room air -we contacted poison Control, recommendations: Cardiac monitoring for 12 hours from time of medication intake, this would be 08:30. Watch for [employer] depression, agitation, confusion, pinpoint pupils, dry mouth, hypotension, seizures, tachycardia, QT interval changes. Monitor for neuroleptic malignant syndrome, malignant hypothermia, muscle rigidity. -tried admitting the patient to the hospital for observation, declined, patient will be cleared in 8 hours -1st set of labs within normal limits. -second EKG pending -physician observation started at 00:30 -sign out given to Dr. Johnston Lab Data 12/20/22 22:36 12/20/22 22:36 Labs: Lab Results 12/20/22 12/20/22 12/20/22 Range/Units 22:36 22:36 22:36 WBC 8.5 (4.8-10.8) X10*3/uL RBC 4.42 (4.20-5.50) X10*6/uL Hgb 14.0 (12.0-16.0) g/dl Hct 43.0 (37.0-47.0) % MCV 97.3 (80.0-98.0) fL MCH 31.7 (27.0-33.0) pg MCHC 32.6 (31.0-35.0) g/dl RDW 12.5 (11.0-16.0) % Plt Count 204 (160-400) X10*3/uL MPV 10.8 (9.4-12.3) fL Immature Gran % (Auto) 0.2 (0.0-0.4) % Neut % (Auto) 56.5 (45-73) % Lymph % (Auto) 33.4 (20-40) % [place] % (Auto) 8.5 (2-11) % Eos % (Auto) 0.8 (0-4) % Baso % (Auto) 0.6 (0-2) % Lymph # (Auto) 2.8 (1.2-4.9) X10*3/uL [place] # (Auto) 0.7 (0.1-1.2) X10*3/uL Eos # (Auto) 0.1 (0.0-0.4) X10*3/uL Baso # (Auto) 0.1 (0.0-0.2) X10*3/uL Abs Immat Gran (auto) 0.02 (0.00-0.03) X10*3/uL Absolute Neuts (auto) 4.8 (2.0-8.3) x10*3/uL Absolute Nucleated RBC 0.000 (0.0-0.012) X10*3/uL Nucleated RBC % (auto) 0.0 (0.0-0.2) /100WBC Sodium 140 (135-145) mmol/L Potassium 3.7 D (3.3-5.1) mmol/L Chloride 105 (96-108) mmol/L Carbon Dioxide 25 (22-29) mmol/L Anion Gap 14 (12-20) BUN 14 (9-16) mg/dL Creatinine 0.82 (0.5-1.4) mg/dL Estim Creat Clear Calc 86.1 Estimated GFR > 60 Random Glucose 113 (60-115) mg/dL Calcium 9.2 (8.4-10.2) mg/dL Magnesium 1.8 (1.6-2.6) mg/dL Total Bilirubin 0.2 (0.0-1.0) mg/dL Direct Bilirubin < 0.2 (0.0-0.5) mg/dL AST 17 (5-31) U/L ALT 14 (0-31) U/L Alkaline Phosphatase 68 (39-117) U/L Troponin I High Sens < 2.7 (<3.5-17.0) ng/L Total Protein 6.5 (6.5-8.0) g/dL Albumin 3.5 (3.5-5.0) g/dL Discharge Plan Discharge Clinical Impression: Accidental medication error Patient Disposition: Still a Patient Prescriptions: No Action acetaminophen 325 mg Tablet 650 mg PO Q6H PRN (Reason: Headache/Pain Mild Scale (1-3)) Qty: 90 0RF olanzapine 7.5 mg Tablet 15 mg PO BID Qty: 120 0RF benztropine 1 mg Tablet 1 mg PO BID Qty: 60 0RF trazodone 50 mg Tablet 50 mg PO BEDTIME PRN (Reason: Insomnia) Qty: 3 0RF olanzapine 10 mg Tablet,Disintegrating 10 mg translingual Q8H PRN (Reason: psychotic agitation) Qty: 30 0RF ibuprofen 600 mg Tablet 600 mg PO Q8H PRN (Reason: knee pain) Qty: 60 0RF sertraline 50 mg Tablet 50 mg PO BEDTIME Qty: 30 0RF divalproex 250 mg Tablet Extended Release 24 Hr 1,250 mg PO BEDTIME Qty: 150 0RF olanzapine 10 mg Recon Soln 15 mg IM BID PRN (Reason: if pt refuses po zypfan-alessia) Qty: 5 0RF
[2022-12-20 22:44] LABS: Basophils Absolute Auto 0.1 X10*3/uL (0.0-0.2); Basophils Percent Auto 0.6 % (0-2); Eosinophils Absolute Auto 0.1 X10*3/uL (0.0-0.4); Eosinophils Percent Auto 0.8 % (0-4); Imm Gran Abs Auto 0.02 X10*3/uL (0.00-0.03); Imm Gran Pct Auto 0.2 % (0.0-0.4); Lymphocytes Absolute Auto 2.8 X10*3/uL (1.2-4.9); Lymphocytes Percent Auto 33.4 % (20-40); Mean Corpuscular HGB Conc 32.6 g/dl (31.0-35.0); Mean Corpuscular Hemoglobin 31.7 pg (27.0-33.0); Mean Corpuscular Volume 97.3 fL (80.0-98.0); Mean Platelet Volume 10.8 fL (9.4-12.3); Monocytes Absolute Auto 0.7 X10*3/uL (0.1-1.2); Monocytes Percent Auto 8.5 % (2-11); Neutrophils Absolute Auto 4.8 x10*3/uL (2.0-8.3); Neutrophils Percent Auto 56.5 % (45-73); Platelet Count 204 X10*3/uL (160-400); Red Blood Count 4.42 X10*6/uL (4.20-5.50); Red Cell Distribution Width 12.5 % (11.0-16.0); White Blood Count 8.5 X10*3/uL (4.8-10.8)
[2022-12-20 23:08] LABS: Alanine Aminotransferase 14 U/L (0-31); Albumin Level 3.5 g/dL (3.5-5.0); Alkaline Phosphatase 68 U/L (39-117); Anion Gap 14 (12-20); Aspartate Amino Transferase 17 U/L (5-31); Bilirubin Direct < 0.2 mg/dL (0.0-0.5); Bilirubin Total 0.2 mg/dL (0.0-1.0); Blood Urea Nitrogen 14 mg/dL (9-16); Calcium 9.2 mg/dL (8.4-10.2); Carbon Dioxide 25 mmol/L (22-29); Chloride 105 mmol/L (96-108); Creatinine Clr Calc Pharmacy 86.1; Estimated Glomerular Filt Rate > 60; Glucose Random 113 mg/dL (60-115); Magnesium 1.8 mg/dL (1.6-2.6); Potassium 3.7 mmol/L (3.3-5.1); Sodium 140 mmol/L (135-145); Total Protein 6.5 g/dL (6.5-8.0)
[2022-12-20 23:16] LABS: Troponin-I High Sensitivity < 2.7 ng/L (<3.5-17.0)
[2022-12-21] VITALS: BP 127/78; PULSE 80; RESP 16; O2SAT 99
[2022-12-21 02:00] VITALS: BP 133/77; PULSE 93; RESP 16; O2SAT 99
[2022-12-21 04:00] VITALS: BP 125/74; PULSE 91; RESP 18; TEMP 36.3; O2SAT 99
[2022-12-21 06:00] VITALS: BP 124/74; PULSE 97; RESP 19; O2SAT 99
[2022-12-21 08:18] VITALS: BP 120/79; PULSE 92; RESP 18; TEMP 36.6; O2SAT 97
--- NOTE | 2022-12-21 08:46 | PC.NURSE ---
call made to john from respite, will come to pick pt up between [phone]
--- NOTE | 2022-12-21 09:37 | PC.NURSE ---
POISON CONTROL CALLED THIS RN SPOKE TO VIKTOR. PT VSS ARE STABLE AND PT IS TO BE D/C'D HOME.
== END 2022-12-21 09:49 | disposition home or self-care (01) ==
PROVIDERS: Emergency Medicine; Emergency Provider Emergency Medicine Emergency Medical Services; PCP Student in an Organized Health Care Education/Training Program
DX: T42.4X1A Poisoning by benzodiazepines, accidental (unintentional), initial encounter (principal); Y92.049 Unspecified place in boarding-house as the place of occurrence of the external cause
CPT/HCPCS: 36415; 80048; 80076; 83735; 84484; 85025; 93005; 99283; 99285

== ENCOUNTER 2023-02-19 14:42 | Emergency (ER) | payer OTHER, SELFPAY ==
[2023-02-19 14:54] VITALS: BP 122/101; BP 150/100; PULSE 107; PULSE 124; RESP 16; TEMP 37.4; O2SAT 93; O2SAT 95; BMI 25.8
--- NOTE | 2023-02-19 15:50 | ECG_ITS ---
Test Reason : FALL Blood Pressure : / mmHG Vent. Rate : 087 BPM Atrial Rate : 087 BPM P-R Int : 152 ms QRS Dur : 072 ms QT Int : 364 ms P-R-T Axes : 024 016 047 degrees QTc Int : 438 ms Normal sinus rhythm Normal ECG When compared with ECG of 20-DEC-2022 22:20, No significant change was found Referred By: Farhana Guardado Electronically Signed By:DARYL MCGHEE
[2023-02-19 17:22] LABS: Alanine Aminotransferase 18 U/L (0-31); Albumin Level 3.7 g/dL (3.5-5.0); Alkaline Phosphatase 71 U/L (39-117); Anion Gap 12 (12-20); Aspartate Amino Transferase 21 U/L (5-31); Bilirubin Total 0.2 mg/dL (0.0-1.0); Blood Urea Nitrogen 13 mg/dL (9-16); Calcium 9.4 mg/dL (8.4-10.2); Carbon Dioxide 25 mmol/L (22-29); Chloride 107 mmol/L (96-108); Creatinine Clr Calc Pharmacy 72.6; Estimated Glomerular Filt Rate > 60; Glucose Random 127 mg/dL (60-115); Magnesium 1.9 mg/dL (1.6-2.6); Potassium 3.9 mmol/L (3.3-5.1); Sodium 140 mmol/L (135-145); Total Protein 6.7 g/dL (6.5-8.0)
[2023-02-19 17:25] LABS: COVID-19 Test Negative (Negative); IDNOW Serial# 08D9AD1C
[2023-02-19 17:29] LABS: Troponin-I High Sensitivity < 2.7 ng/L (<3.5-17.0)
--- NOTE | 2023-02-19 18:28 | MHC.EDTECH ---
Patient given a tray
--- NOTE | 2023-02-19 19:05 | PC.NURSE ---
pt reports no pain, has no complaints. reports that they fell out of the blue and was unable to get up at detention.
[2023-02-19 19:24] VITALS: BP 129/77; PULSE 98; RESP 18; TEMP 36.9; O2SAT 95
--- NOTE | 2023-02-19 19:49 | PC.NURSE ---
urine sent to lab, pt ambulates with steady gait
[2023-02-19 19:57] LABS: Appearance Urine Clear; Color Urine Yellow; Glucose Urine UA Negative (Negative); Leukocyte Esterase Urine Large (3+) (Negative); Nitrite Urine Negative (Negative); Specific Gravity - Urine <= 1.005 (1.005-1.025); UMIC TRIGGER UACC YES; Urine Blood Negative (Negative); Urine Ketones Negative (Negative); Urine Protein Negative (Neg-Trace)
[2023-02-19 20:05] LABS: Bacteria Urine None Seen (None Seen); Hyaline Casts Urine 0-2 /LPF (0-2); RBC Urine 0-2 /HPF (0-2); Squamous Epithelial Cell Urine 0-2 /HPF (0-2); UACC Culture Trigger YES; WBC Urine 21-50 /HPF (0-5)
[2023-02-19 20:42] LABS: MANUAL DIFF FLAG NO
[2023-02-19 20:52] LABS: Basophils Absolute Auto 0.1 X10*3/uL (0.0-0.2); Basophils Percent Auto 0.7 % (0-2); Eosinophils Percent Auto 0.5 % (0-4); Hematocrit 41.3 % (37.0-47.0); Hemoglobin 13.6 g/dl (12.0-16.0); Imm Gran Abs Auto 0.02 X10*3/uL (0.00-0.03); Imm Gran Pct Auto 0.3 % (0.0-0.4); Lymphocytes Absolute Auto 2.4 X10*3/uL (1.2-4.9); Lymphocytes Percent Auto 31.8 % (20-40); Mean Corpuscular HGB Conc 32.9 g/dl (31.0-35.0); Mean Corpuscular Hemoglobin 31.6 pg (27.0-33.0); Mean Corpuscular Volume 95.8 fL (80.0-98.0); Mean Platelet Volume 10.8 fL (9.4-12.3); Monocytes Absolute Auto 0.9 X10*3/uL (0.1-1.2); Monocytes Percent Auto 11.3 % (2-11); Neutrophils Absolute Auto 4.2 x10*3/uL (2.0-8.3); Neutrophils Percent Auto 55.4 % (45-73); Platelet Count 174 X10*3/uL (160-400); Red Blood Count 4.31 X10*6/uL (4.20-5.50); Red Cell Distribution Width 12.9 % (11.0-16.0); White Blood Count 7.6 X10*3/uL (4.8-10.8)
--- NOTE | 2023-02-19 23:12 | ED_ITS ---
HPI - General Adult General Chief complaint: Fall Stated complaint: Fall, no head strike, weakness per EMS Time Seen by Provider: 02/19/23 16:16 Source: patient Limitations: no limitations History of Present Illness HPI narrative: 62-year-old female presents after an accidental fall. She was coming in with some food from a restaurant. She slightly trypan in her legs gave out from under her. She says she may have hit her head but was not significant. She did not lose consciousness. There is no prodrome such as chest pain, palpitations, lightheadedness. She denies any nausea, vomiting, headache, focal neurologic deficits. When she tried to get up, she felt still unsteady on her feet which is why she came to the hospital. She felt anxious and nervous as a result of her gait instability. At this time she denies any headache. She has some very mild left lower back pain. The pain does not radiate. There is no loss of bow el or bladder control. There is no saddle paresthesias. Related Data Previous Rx's Medication Instructions Recorded acetaminophen 325 mg tablet 650 mg PO Q6H PRN Headache/Pain 04/06/22 Mild Scale (1-3) #90 tabs benztropine 1 mg tablet 1 mg PO BID #60 tabs 04/06/22 divalproex 250 mg tablet,extended 1,250 mg PO BEDTIME #150 tabs 04/06/22 release 24 hr ibuprofen 600 mg tablet 600 mg PO Q8H PRN knee pain #60 04/06/22 tabs olanzapine 10 mg disintegrating 10 mg translingual Q8H PRN 04/06/22 tablet psychotic agitation #30 tabs olanzapine 10 mg intramuscular 15 mg IM BID PRN if pt refuses po 04/06/22 solution lay #5 ea olanzapine 7.5 mg tablet 15 mg PO BID #120 tabs 04/06/22 sertraline 50 mg tablet 50 mg PO BEDTIME #30 tabs 04/06/22 trazodone 50 mg tablet 50 mg PO BEDTIME PRN Insomnia #3 04/06/22 tabs cephalexin 500 mg capsule 500 mg PO Q12H #14 caps 02/19/23 Allergies Allergy/AdvReac Type Severity Reaction Status Date / Time haloperidol [From Haldol] AdvReac Mild AGITATION Verified 12/20/22 21:47 propranolol AdvReac irregular Verified 12/20/22 21:47 heartbeat Review of Systems Review of Systems: CONSTITUTIONAL: Denies weight loss, fever and chills. HEENT: Denies changes in vision and hearing. RESPIRATORY: Denies SOB and cough. CV: Denies palpitations no CP. GI: Denies abdominal pain, nausea, vomiting and diarrhea. : Denies dysuria and urinary frequency. MSK: + myalgia and joint pain. SKIN: Denies rash and pruritus. NEUROLOGICAL: Denies headache and syncope. PSYCHIATRIC: Denies recent changes in mood. Denies anxiety and depression. All other ROS are negative unless in HPI PMFSH Past Medical History Medical History Schizoaffective disorder Social History Social History Household Members: None Housing: Apartment Do you presently have visiting nurse or other home services: No Unable to assess alcohol history related to: Unable to respond Alcohol intake: never Patient Tobacco Use Status: Tobacco use Unknown Smoked in Last 30 Days: No Use of substances other than those prescribed or required for medical reasons: No Advance Directives: No Advance Directives Information Provided: Yes service: No Sexual orientation: Did not discuss Physical Exam ED Vital Signs: Vital Signs - 24 hr 02/19/23 14:54 02/19/23 19:24 Temperature 99.3 F 98.4 F Pulse Rate 107 H 98 Respiratory Rate 16 18 Blood Pressure 122/101 H 129/77 Pulse Oximetry 93 95 Oxygen Delivery Method Room Air Room Air BMI result Body Mass Index 25.8 GEN: Well developed, no acute distress, alert, oriented HEENT: Normocephalic, atraumatic, normal external ears, nose appears normal, no oropharyngeal edema or exudates Eyes: Normal to appearance Neck: Supple, no lymphadenopathy Respiratory: Talks in complete sentences, no respiratory distress, clear to auscultation bilaterally Cardiovascular: Regular rate and rhythm, no murmurs rubs or gallops Abdomen: Soft, nontender, nondistended, no guarding, no rebound Back: No CVA tenderness Extremities: No clubbing cyanosis or edema Neurologic: No focal neurologic deficits, cranial nerves 2-12 intact, strength is 5/5 bilaterally Skin: No rash Course Course Course Narrative: This 11:00 a.m. at night. The workup is complete. Patient is able to ambulate without significant difficulty. She has some mild left lower back pain. There is no evidence of radiculopathy. She does have urinary tract infection. We will treat that with Keflex. We are all will also give her Tylenol for analgesia. She will follow-up with her primary care provider in 1 week if needed. Medical Decision Making Medical Decision Making [facility] Narrative: Patient presents after mechanical fall. She felt generally weak at the time and shaky. At this point, patient is able to ambulate without significant difficulty. Routine laboratory analysis has been ordered prior to my evaluation the patient. Will review that for any significant abnormalities such as anemia, electrolyte abnormality, hypokalemia, hyponatremia, urinary tract infection. Will treat accordingly. Patient on my initial evaluation I do not believe patient will warrant hospitalization however, should there is be any significant abnormalities, would reconsider. Differential Diagnosis Differential Diagnoses: The differential diagnosis associated with the presentation includes (See above) Admission/Observation Consideration of admission/observation: Escalation of care including admission/observation considered Lab Data [facility] Lab Attestation statement: I reviewed the patient's lab results. 02/19/23 20:40 02/19/23 16:56 Labs: Lab Results 02/19/23 02/19/23 02/19/23 Range/Units 16:56 16:56 16:56 WBC (4.8-10.8) X10*3/uL RBC (4.20-5.50) X10*6/uL Hgb (12.0-16.0) g/dl Hct (37.0-47.0) % MCV (80.0-98.0) fL MCH (27.0-33.0) pg MCHC (31.0-35.0) g/dl RDW (11.0-16.0) % Plt Count (160-400) X10*3/uL MPV (9.4-12.3) fL Immature Gran % (Auto) (0.0-0.4) % Neut % (Auto) (45-73) % Lymph % (Auto) (20-40) % [place] % (Auto) (2-11) % Eos % (Auto) (0-4) % Baso % (Auto) (0-2) % Lymph # (Auto) (1.2-4.9) X10*3/uL [place] # (Auto) (0.1-1.2) X10*3/uL Eos # (Auto) (0.0-0.4) X10*3/uL Baso # (Auto) (0.0-0.2) X10*3/uL Abs Immat Gran (auto) (0.00-0.03) X10*3/uL Absolute Neuts (auto) (2.0-8.3) x10*3/uL Absolute Nucleated RBC (0.0-0.012) X10*3/uL Nucleated RBC % (auto) (0.0-0.2) /100WBC Sodium 140 (135-145) mmol/L Potassium 3.9 (3.3-5.1) mmol/L Chloride 107 (96-108) mmol/L Carbon Dioxide 25 (22-29) mmol/L Anion Gap 12 (12-20) BUN 13 (9-16) mg/dL Creatinine 0.77 (0.5-1.4) mg/dL Estim Creat Clear Calc 72.6 Estimated GFR > 60 Random Glucose 127 H (60-115) mg/dL Calcium 9.4 (8.4-10.2) mg/dL Magnesium 1.9 (1.6-2.6) mg/dL Total Bilirubin 0.2 (0.0-1.0) mg/dL AST 21 (5-31) U/L ALT 18 (0-31) U/L Alkaline Phosphatase 71 (39-117) U/L Troponin I High Sens < 2.7 (<3.5-17.0) ng/L Total Protein 6.7 (6.5-8.0) g/dL Albumin 3.7 (3.5-5.0) g/dL Urine Color Urine Appearance Urine pH (5.0-9.0) Ur Specific [place] (1.005-1.025) Urine Protein (Neg-Trace) mg/dL Urine Glucose (UA) (Negative) mg/dL Urine Ketones (Negative) mg/dL Urine Blood (Negative) Urine Nitrite (Negative) Ur Leukocyte Esterase (Negative) Urine RBC (0-2) /HPF Urine WBC (0-5) /HPF Ur Squamous Epith Cells (0-2) /HPF Urine Bacteria (None Seen) Hyaline Casts (0-2) /LPF COVID-19 (RIDDHI) Negative (Negative) COVID-19 Clin Com See Note 02/19/23 02/19/23 Range/Units 19:48 20:40 WBC 7.6 (4.8-10.8) X10*3/uL RBC 4.31 (4.20-5.50) X10*6/uL Hgb 13.6 (12.0-16.0) g/dl Hct 41.3 (37.0-47.0) % MCV 95.8 (80.0-98.0) fL MCH 31.6 (27.0-33.0) pg MCHC 32.9 (31.0-35.0) g/dl RDW 12.9 (11.0-16.0) % Plt Count 174 (160-400) X10*3/uL MPV 10.8 (9.4-12.3) fL Immature Gran % (Auto) 0.3 (0.0-0.4) % Neut % (Auto) 55.4 (45-73) % Lymph % (Auto) 31.8 (20-40) % [place] % (Auto) 11.3 H (2-11) % Eos % (Auto) 0.5 (0-4) % Baso % (Auto) 0.7 (0-2) % Lymph # (Auto) 2.4 (1.2-4.9) X10*3/uL [place] # (Auto) 0.9 (0.1-1.2) X10*3/uL Eos # (Auto) 0.0 (0.0-0.4) X10*3/uL Baso # (Auto) 0.1 (0.0-0.2) X10*3/uL Abs Immat Gran (auto) 0.02 (0.00-0.03) X10*3/uL Absolute Neuts (auto) 4.2 (2.0-8.3) x10*3/uL Absolute Nucleated RBC 0.000 (0.0-0.012) X10*3/uL Nucleated RBC % (auto) 0.0 (0.0-0.2) /100WBC Sodium (135-145) mmol/L Potassium (3.3-5.1) mmol/L Chloride (96-108) mmol/L Carbon Dioxide (22-29) mmol/L Anion Gap (12-20) BUN (9-16) mg/dL Creatinine (0.5-1.4) mg/dL Estim Creat Clear Calc Estimated GFR Random Glucose (60-115) mg/dL Calcium (8.4-10.2) mg/dL Magnesium (1.6-2.6) mg/dL Total Bilirubin (0.0-1.0) mg/dL AST (5-31) U/L ALT (0-31) U/L Alkaline Phosphatase (39-117) U/L Troponin I High Sens (<3.5-17.0) ng/L Total Protein (6.5-8.0) g/dL Albumin (3.5-5.0) g/dL Urine Color Yellow Urine Appearance Clear Urine pH 7.0 (5.0-9.0) Ur Specific [place] <= 1.005 (1.005-1.025) Urine Protein Negative (Neg-Trace) mg/dL Urine Glucose (UA) Negative (Negative) mg/dL Urine Ketones Negative (Negative) mg/dL Urine Blood Negative (Negative) Urine Nitrite Negative (Negative) Ur Leukocyte Esterase Large (3+) H (Negative) Urine RBC 0-2 (0-2) /HPF Urine WBC 21-50 H (0-5) /HPF Ur Squamous Epith Cells 0-2 (0-2) /HPF Urine Bacteria None Seen (None Seen) Hyaline Casts 0-2 (0-2) /LPF COVID-19 (RIDDHI) (Negative) COVID-19 Clin Com UTI Independent Interpretation I performed an independent interpretation of an: EKG (Normal sinus rhythm heart rate 87, normal intervals, no acute ST elevations depressions, nonspecific T- wave changes.) Tests considered The following testing was considered but not selected: X-ray back Prescription Management I considered prescription management with: Pain Medication Discharge Plan Discharge Clinical Impression: Accidental fall, Acute lower UTI Patient Disposition: Home, Self-Care Instructions: Urinary Tract Infection in Women (DC), Fall Prevention (ED) Prescriptions: New cephalexin 500 mg capsule 500 mg PO Q12H Qty: 14 0RF No Action acetaminophen 325 mg Tablet 650 mg PO Q6H PRN (Reason: Headache/Pain Mild Scale (1-3)) Qty: 90 0RF olanzapine 7.5 mg Tablet 15 mg PO BID Qty: 120 0RF benztropine 1 mg Tablet 1 mg PO BID Qty: 60 0RF trazodone 50 mg Tablet 50 mg PO BEDTIME PRN (Reason: Insomnia) Qty: 3 0RF olanzapine 10 mg Tablet,Disintegrating 10 mg translingual Q8H PRN (Reason: psychotic agitation) Qty: 30 0RF ibuprofen 600 mg Tablet 600 mg PO Q8H PRN (Reason: knee pain) Qty: 60 0RF sertraline 50 mg Tablet 50 mg PO BEDTIME Qty: 30 0RF divalproex 250 mg Tablet Extended Release 24 Hr 1,250 mg PO BEDTIME Qty: 150 0RF olanzapine 10 mg Recon Soln 15 mg IM BID PRN (Reason: if pt refuses po zyprexsteve-alessia) Qty: 5 0RF Referrals: Tiffany Crow MD [Primary Care Provider] - 1 week
--- NOTE | 2023-02-19 23:56 | MHC.EDTECH ---
call out to noreen at 1426 to book transport for pt back to [facility], estimated eta given was 0030
[2023-02-20] MEDS: cephALEXin 500 MG CAPSULE PO (00:01)
[2023-02-20] MEDS: Acetaminophen 325 MG TABLET 975 MG PO (00:01)
[2023-02-20 00:06] VITALS: BP 149/96; PULSE 81; RESP 17; TEMP 36.9; O2SAT 95
== END 2023-02-20 00:30 | disposition home or self-care (01) ==
PROVIDERS: Physician Assistant Medical; Emergency Provider Emergency Medicine; PCP Student in an Organized Health Care Education/Training Program
DX: N39.0 Urinary tract infection, site not specified (principal); M54.50 Low back pain, unspecified; Z91.81 History of falling; Z20.822 Contact with and (suspected) exposure to COVID-19
CPT/HCPCS: 36415; 80053; 81001; 81003; 83735; 84484; 85025; 87086; 87635; 93005; 99283; 99285

== ENCOUNTER 2023-02-23 14:37 | Emergency (ER) | payer OTHER, MEDICAID, SELFPAY ==
--- NOTE | ~2023-02-23 | US_ITS ---
EXAMINATION: US VENOUS ULTRASOUND WITH DOPPLER LOWER EXTREMITY, RIGHT CLINICAL INFORMATION: Popliteal fossa pain COMPARISON: None available. TECHNIQUE: Ultrasound of the deep veins is performed from the hip to the calf with compression sonography and color and pulse Doppler assessment. Spectral analysis with color-flow imaging is performed. FINDINGS: There is normal venous compression and respiratory variation and augmented flow. The visualized common femoral vein, superficial femoral vein, profunda femoral vein, popliteal vein, and the trifurcation region shows no evidence of deep venous thrombosis. There is no significant popliteal fossa cyst. If the patient's symptoms persist, followup ultrasound in 5 days 7 days might be of value to exclude proximal propagation from a non-visualized calf vein. US/US venous duplex LE RT IMPRESSION: No DVT demonstrated in the right lower extremity.
--- NOTE | ~2023-02-23 | XR_ITS ---
EXAMINATION: XR KNEE, RIGHT CLINICAL INFORMATION: Fall, pain. COMPARISON: Radiograph right knee 02/24/2013. TECHNIQUE: Four views of the right knee. FINDINGS: No displaced fractures or subluxation. Moderate to severe tricompartmental degenerative changes with joint space narrowing, subcortical sclerosis and marginal osteophytes. No erosions or chondrocalcinosis. Small joint effusion. XR/XR knee RT 3V IMPRESSION: 1. No displaced fractures or subluxation. 2. Moderate to severe tricompartmental degenerative changes. 3. Small joint effusion.
[2023-02-23 14:43] VITALS: BP 120/82; PULSE 76; O2SAT 99
[2023-02-23 14:45] VITALS: BP 140/79; PULSE 89; RESP 12; TEMP 36.9; O2SAT 98; BMI 25.1
--- NOTE | 2023-02-23 15:38 | ED_ITS ---
HPI - General Adult General Chief complaint: Extremity Injury, Lower Stated complaint: FALL W/ R KNEE PAIN PER EMS Time Seen by Provider: 02/23/23 14:44 Source: patient, EMS and RN notes reviewed Mode of arrival: EMS Limitations: no limitations History of Present Illness HPI narrative: Patient is a 62-year-old female with history of schizoaffective disorder presenting to the emergency department with complaint of right posterior knee pain which developed when she went to walk to the store earlier today. Reports that she had a fall on 02/19, was evaluated in this emergency department following the fall. Reports pain is worst with standing and ambulation, pain is relieved with laying in bed with support under her right knee. Denies any numbness or tingling. Denies any radiation of pain. Did not take any [id number] medications prior to arrival. MD complaint: Right knee pain Onset (ago): hour(s) Location: lower extremity Radiation: non-radiation Severity: moderate Quality: aching Pain Consistency: intermittent Relieving factors: rest Exacerbating factors: movement Associated symptoms: denies other symptoms Treatments prior to arrival: none Related Data Previous Rx's Medication Instructions Recorded acetaminophen 325 mg tablet 650 mg PO Q6H PRN Headache/Pain 04/06/22 Mild Scale (1-3) #90 tabs benztropine 1 mg tablet 1 mg PO BID #60 tabs 04/06/22 divalproex 250 mg tablet,extended 1,250 mg PO BEDTIME #150 tabs 04/06/22 release 24 hr ibuprofen 600 mg tablet 600 mg PO Q8H PRN knee pain #60 04/06/22 tabs olanzapine 10 mg disintegrating 10 mg translingual Q8H PRN 04/06/22 tablet psychotic agitation #30 tabs olanzapine 10 mg intramuscular 15 mg IM BID PRN if pt refuses po 04/06/22 solution valypfan-alessia #5 ea olanzapine 7.5 mg tablet 15 mg PO BID #120 tabs 04/06/22 sertraline 50 mg tablet 50 mg PO BEDTIME #30 tabs 04/06/22 trazodone 50 mg tablet 50 mg PO BEDTIME PRN Insomnia #3 04/06/22 tabs cephalexin 500 mg capsule 500 mg PO Q12H #14 caps 02/19/23 Allergies Allergy/AdvReac Type Severity Reaction Status Date / Time haloperidol [From Haldol] AdvReac Mild AGITATION Verified 12/20/22 21:47 propranolol AdvReac irregular Verified 12/20/22 21:47 heartbeat Review of Systems Review of Systems: As per HPI. Yes all other systems are reviewed and are negative Constitutional: Constitutional: Reports as per HPI [facility] Past Medical History Medical History Schizoaffective disorder Social History Social History Household Members: None Housing: Apartment Do you presently have visiting nurse or other home services: No Unable to assess alcohol history related to: Unable to respond Alcohol intake: never Patient Tobacco Use Status: Tobacco use Unknown Smoked in Last 30 Days: No Use of substances other than those prescribed or required for medical reasons: No Advance Directives: No Advance Directives Information Provided: No service: No Sexual orientation: Did not discuss Physical Exam ED Vital Signs: Vital Signs - 24 hr 02/23/23 14:45 Temperature 98.4 F Pulse Rate 89 Respiratory Rate 12 Blood Pressure 140/79 H Pulse Oximetry 98 BMI result Body Mass Index 25.1 Vital signs have been reviewed and appear to be correct. Blood pressure mildly elevated. Heart rate normal. Respiratory rate normal. Temperature normal. Oxygen saturation normal. Const General: cooperative, healthy appearing and no acute distress Orientation/consciousness: oriented to person, oriented to place, oriented to time and patient oriented x3 Limitations: no limitations [facility] Head: Yes normocephalic and Yes atraumatic Ears: external ears normal General nose exam: Normal external nose present Face and sinus: Yes face symmetric Mouth: oropharynx normal and moist mucous membranes Throat: Yes uvula midline Eyes Pupils: Equal, round and reactive pupils present Neck Neck: Yes normal visual inspection and Yes supple Resp Effort & Inspection: normal respiratory effort and able to speak in complete sentences Auscultation: clear to auscultation bilaterally Cardio Rate: regular rate Rhythm: regular rhythm Heart sounds: S1 normal heart sound present and S2 normal heart sound present GI Palpation (GI): Soft to palpation and nontender Auscultation: normoactive bowel sounds General: Yes no CVA tenderness Back/Spine/Pelvis Back: no CVA tenderness Skin General skin exam: elasticity normal and turgor normal Neuro General: oriented to person, oriented to place, oriented to time, patient oriented x3, moves all extremities, no focal motor deficits and CN's II-XI intact bilaterally Cranial nerves: Yes Equal, round and reactive pupils present Cognition (Neuro): normal cognition Extrem General: Yes full ROM, Yes normal exam except as noted, Yes no pedal edema and Yes no calf tenderness Right lower extremity: knee Details: normal to inspection, tenderness Location: of the popliteal fossa, normal ROM and knee ligament exam normal; no swelling, no ecchymosis and no unusual warmth and foot Details: vascular exam Details: do rsalis pedis pulse present and posterior tibial pulse present Psych Mental Status: mental status grossly normal Affect: normal affect Thought process: Normal thought process present Medications Administered Discontinued Medications Generic Name Dose Route Start Last Admin Trade Name Víctor PRN Reason Stop Dose Admin Ibuprofen 600 mg 02/23/23 15:42 02/23/23 15:46 Ibuprofen 600 Mg Tablet PO 02/23/23 15:43 600 mg ONCE ONE Administration Medical Decision Making Medical Decision Making [facility] Narrative: Patient is a 62-year-old female with history of schizoaffective disorder presenting to the emergency department with complaint of right posterior knee pain which developed when she went to walk to the store earlier today. On exam patient is awake, A+Ox3, VS WNL, afebrile, normal neurological exam without focal deficits, tenderness to right popliteal fossa, no mass, erythema or warmth, normal ligament exam. Given reported symptoms and physical exam findings, initial differential includes knee strain, Arambula's cyst, effusion. X- ray notable for no fracture/dislocation, moderate degenerative changes and small effusion. U/S notable for no DVT or cyst. My interpretation is in agreement with the radiologist's interpretation. All results discussed with patient and all questions answered. Will apply Arsenio wrap in the ED and refer patient to orthopedics for further management of symptoms. Instructed patient to utilize Tylenol and ibuprofen per package directions as needed for discomfort, apply ice to the affected area several times daily. Return precautions discussed at bedside. Patient verbalized understanding of and agreement with plan. Differential Diagnosis Differential Diagnoses: The differential diagnosis associated with the presentation includes As per [facility] Independent Interpretation I performed an independent interpretation of an: Plain X-Ray Interpretation: X-ray: No fracture or dislocation, degenerative changes, small effusion U/S: No DVT or cyst Radiology Impression Discussion of test interpretation with radiology: I have reviewed the radiologist's reading. Radiologist Impression: XR/XR knee RT 3V IMPRESSION: 1.? No displaced fractures or subluxation. 2.? Moderate to severe tricompartmental degenerative changes. 3.? Small joint effusion. US/US venous duplex LE RT IMPRESSION: No DVT demonstrated in the right lower extremity. External Record Review External record reviewed: Inpatient record, Office record and Outpatient record Discharge Plan Discharge Clinical Impression: Strain of right knee Patient Disposition: Home, Self-Care Instructions: Knee Pain (ED) Additional Instructions: You have been evaluated in the emergency department today for knee pain. Your evaluation did not find evidence of medical conditions requiring emergent intervention at this time. We have provided an ARSENIO wrap for you to use while your knee heals. Please rest, ice, and elevate your knee, and resume normal activities as tolerated. We recommend you take 600mg ibuprofen every 6 hours or 650mg Tylenol every 6 hours as needed for pain. If needed you can alternate these medications as they take 1 medication every 3 hours. For instance at noon take ibuprofen, then at 3:00 p.m. take Tylenol, then at 6:00 p.m. take ibuprofen. You are being referred to orthopedics for further management of your symptoms. Please contact them for an appointment. Please schedule an appointment for follow-up with your primary care provider this week. Return to the emergency department if you experience worsening pain, numbness, tingling, change of color in your leg, or any other concerning symptoms. Prescriptions: No Action acetaminophen 325 mg Tablet 650 mg PO Q6H PRN (Reason: Headache/Pain Mild Scale (1-3)) Qty: 90 0RF olanzapine 7.5 mg Tablet 15 mg PO BID Qty: 120 0RF benztropine 1 mg Tablet 1 mg PO BID Qty: 60 0RF trazodone 50 mg Tablet 50 mg PO BEDTIME PRN (Reason: Insomnia) Qty: 3 0RF olanzapine 10 mg Tablet,Disintegrating 10 mg translingual Q8H PRN (Reason: psychotic agitation) Qty: 30 0RF ibuprofen 600 mg Tablet 600 mg PO Q8H PRN (Reason: knee pain) Qty: 60 0RF sertraline 50 mg Tablet 50 mg PO BEDTIME Qty: 30 0RF divalproex 250 mg Tablet Extended Release 24 Hr 1,250 mg PO BEDTIME Qty: 150 0RF olanzapine 10 mg Recon Soln 15 mg IM BID PRN (Reason: if pt refuses po zyprexsteve-alessia) Qty: 5 0RF cephalexin 500 mg capsule 500 mg PO Q12H Qty: 14 0RF Referrals: [facility] [place] Orthopedic Surgeons [Provider Group]
[2023-02-23] MEDS: Ibuprofen 600 MG TABLET PO (15:46)
--- NOTE | 2023-02-23 18:44 | PC.NURSE ---
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
== END 2023-02-23 19:43 | disposition home or self-care (01) ==
PROVIDERS: Emergency Provider Emergency Medicine; PCP Student in an Organized Health Care Education/Training Program
DX: M25.561 Pain in right knee (principal); S86.111D Strain of other muscle(s) and tendon(s) of posterior muscle group at lower leg level, right leg, subsequent encounter; W01.0XXD Fall on same level from slipping, tripping and stumbling without subsequent striking against object, subsequent encounter
CPT/HCPCS: 73562; 93971; 99284

== ENCOUNTER 2023-02-28 14:10 | Emergency (ER) | payer OTHER, MEDICAID, SELFPAY ==
[2023-02-28 14:21] VITALS: BP 117/85; PULSE 93; RESP 16; TEMP 36.4; O2SAT 94; BMI 25.4
--- NOTE | 2023-02-28 15:19 | ED_ITS ---
HPI - General Adult General Chief complaint: Extremity Injury, Lower Stated complaint: R KNEE PAIN,FALL A WEEK AGO FROM [facility] Time Seen by Provider: 02/28/23 14:24 Source: patient, EMS and RN notes reviewed Mode of arrival: EMS Limitations: no limitations History of Present Illness HPI narrative: Patient is a 62-year-old female with history of schizoaffective disorder presenting to the emergency department with right lateral knee pain. Patient was seen and evaluated in the emergency department 5 days prior for same complaint on 02/23. She was provided with Arsenio wrap at that time, advised to ice, utilize Tylenol and ibuprofen, and follow-up with orthopedics. Patient states that she did not do any of those things. Denies any fall or other trauma since previous visit. Denies any numbness or tingling to leg. MD complaint: Knee pain Onset (ago): day(s) Location: lower extremity Radiation: non-radiation Severity: moderate Quality: aching Pain Consistency: constant Relieving factors: rest Exacerbating factors: movement Associated symptoms: denies other symptoms Treatments prior to arrival: none Related Data Previous Rx's Medication Instructions Recorded acetaminophen 325 mg tablet 650 mg PO Q6H PRN Headache/Pain 04/06/22 Mild Scale (1-3) #90 tabs benztropine 1 mg tablet 1 mg PO BID #60 tabs 04/06/22 divalproex 250 mg tablet,extended 1,250 mg PO BEDTIME #150 tabs 04/06/22 release 24 hr ibuprofen 600 mg tablet 600 mg PO Q8H PRN knee pain #60 04/06/22 tabs olanzapine 10 mg disintegrating 10 mg translingual Q8H PRN 04/06/22 tablet psychotic agitation #30 tabs olanzapine 10 mg intramuscular 15 mg IM BID PRN if pt refuses po 04/06/22 solution christa-alessia #5 ea olanzapine 7.5 mg tablet 15 mg PO BID #120 tabs 04/06/22 sertraline 50 mg tablet 50 mg PO BEDTIME #30 tabs 04/06/22 trazodone 50 mg tablet 50 mg PO BEDTIME PRN Insomnia #3 04/06/22 tabs cephalexin 500 mg capsule 500 mg PO Q12H #14 caps 02/19/23 Allergies Allergy/AdvReac Type Severity Reaction Status Date / Time haloperidol [From Haldol] AdvReac Mild AGITATION Verified 12/20/22 21:47 propranolol AdvReac irregular Verified 12/20/22 21:47 heartbeat Review of Systems Review of Systems: As per HPI. Yes all other systems are reviewed and are negative Constitutional: Constitutional: Reports as per HPI [facility] Past Medical History Medical History Schizoaffective disorder Social History Social History Household Members: None Housing: Apartment Do you presently have visiting nurse or other home services: No Unable to assess alcohol history related to: Unable to respond Alcohol intake: never Patient Tobacco Use Status: Tobacco use Unknown Advance Directives: No Advance Directives Information Provided: No service: No Sexual orientation: Did not discuss Physical Exam ED Vital Signs: Vital Signs - 24 hr 02/28/23 14:21 Temperature 97.5 F Pulse Rate 93 Respiratory Rate 16 Blood Pressure 117/85 Pulse Oximetry 94 Oxygen Delivery Method Room Air BMI result Body Mass Index 25.4 Vital signs have been reviewed and appear to be correct. Blood pressure normal. Heart rate normal. Respiratory rate normal. Temperature normal. Oxygen saturation normal. Const General: cooperative, healthy appearing and no acute distress Orientation/consciousness: oriented to person, oriented to place, oriented to time and patient oriented x3 Limitations: no limitations [facility] Head: Yes normocephalic and Yes atraumatic Ears: external ears normal General nose exam: Normal external nose present Face and sinus: Yes face symmetric Mouth: oropharynx normal and moist mucous membranes Throat: Yes uvula midline Eyes Pupils: Equal, round and reactive pupils present Neck Neck: Yes normal visual inspection and Yes supple Resp Effort & Inspection: normal respiratory effort and able to speak in complete sentences Auscultation: clear to auscultation bilaterally Cardio Rate: regular rate Rhythm: regular rhythm Heart sounds: S1 normal heart sound present and S2 normal heart sound present GI Palpation (GI): Soft to palpation and nontender Auscultation: normoactive bowel sounds General: Yes no CVA tenderness Back/Spine/Pelvis Back: no CVA tenderness Skin General skin exam: elasticity normal and turgor normal Neuro General: oriented to person, oriented to place, oriented to time, patient oriented x3, gait normal, tone normal, moves all extremities, Normal light touch and pain sensation, no focal motor deficits, CN's II-XI intact bilaterally and deep tendon reflexes 2+ bilaterally Cranial nerves: Yes Equal, round and reactive pupils present Cognition (Neuro): normal cognition Motor exam (neuro): 5/5 motor strength present throughout, Normal motor muscle tone present throughout and Motor abnormalities not present Sensory Exam: Normal double simultaneous stimulation for sensation Extrem General: Yes full ROM, Yes normal exam except as noted, Yes no pedal edema and Yes no calf tenderness Right lower extremity: knee Details: normal to inspection, tenderness Location: of the lateral joint line, normal ROM and knee ligament exam normal; no swelling, no ecchymosis, no crepitus and no unusual warmth and foot Details: vascular exam Details: dorsalis pedis pulse present and posterior tibial pulse present Psych Mental Status: mental status grossly normal Affect: normal affect Thought process: Normal thought process present Medical Decision Making Medical Decision Making MDM Narrative: Patient is a 62-year-old female with history of schizoaffective disorder presenting to the emergency department with right lateral knee pain. On exam patient is awake, A+Ox3, VS WNL, afebrile, normal neurological exam without focal deficits, mild tenderness to lateral aspect of right knee, normal ligament exam, no swelling, ecchymosis, erythema, calor, DTRs 2+, 2+ DP and PT pulses. Given reported symptoms and physical exam findings, initial differential includes knee strain/sprain. Patient had ultrasound on 02/23 which was negative for DVT as well as right knee x-ray on 02/23 which was negative for any fracture or subluxation, moderate to severe degenerative changes were noted as well as small effusion. Patient was provided with Arsenio wrap at that time and advised to make follow-up appointment with Orthopedics which she states she did not do. Given the patient denies any fall or other injury since recent visit do not feel repeat imaging is indicated. Will provide new Arsenio wrap and discussed with patient that she should be utilizing Tylenol and ibuprofen for discomfort, applying ice several times daily and stressed the importance of following up with the orthopedics office for further evaluation of her symptoms. Return precautions discussed at bedside. Patient verbalized understanding of and agreement with plan. Differential Diagnosis Differential Diagnoses: The differential diagnosis associated with the presentation includes As per MDM. External Record Review External record reviewed: Inpatient record, Office record and Outpatient record Discharge Plan Discharge Clinical Impression: Strain of right knee Patient Disposition: Home, Self-Care Instructions: R.I.C.E. Treatment (ED) Additional Instructions: You have been evaluated in the emergency department today for knee pain. ? Your evaluation did not find evidence of medical conditions requiring emergent intervention at this time.? We have provided an ARSENIO wrap for you to use while your knee heals.? Please rest, ice, and elevate your knee, and resume normal activities as tolerated.? We recommend you take 600mg ibuprofen every 6 hours or 650mg Tylenol every 6 hours as needed for pain.? If needed you can alternate these medications as they take 1 medication every 3 hours.? For instance at noon take ibuprofen, then at 3:00 p.m. take Tylenol, then at 6:00 p.m. take ibuprofen.? You are being referred to orthopedics for further management of your symptoms.? Please contact them for an appointment.? Please schedule an appointment for follow-up with your primary care provider this week.? Return to the emergency department if you experience worsening pain, numbness, tingling, change of color in your leg, or any other concerning symptoms. Prescriptions: No Action acetaminophen 325 mg Tablet 650 mg PO Q6H PRN (Reason: Headache/Pain Mild Scale (1-3)) Qty: 90 0RF olanzapine 7.5 mg Tablet 15 mg PO BID Qty: 120 0RF benztropine 1 mg Tablet 1 mg PO BID Qty: 60 0RF trazodone 50 mg Tablet 50 mg PO BEDTIME PRN (Reason: Insomnia) Qty: 3 0RF olanzapine 10 mg Tablet,Disintegrating 10 mg translingual Q8H PRN (Reason: psychotic agitation) Qty: 30 0RF ibuprofen 600 mg Tablet 600 mg PO Q8H PRN (Reason: knee pain) Qty: 60 0RF sertraline 50 mg Tablet 50 mg PO BEDTIME Qty: 30 0RF divalproex 250 mg Tablet Extended Release 24 Hr 1,250 mg PO BEDTIME Qty: 150 0RF olanzapine 10 mg Recon Soln 15 mg IM BID PRN (Reason: if pt refuses po zyprexa-alessia) Qty: 5 0RF cephalexin 500 mg capsule 500 mg PO Q12H Qty: 14 0RF Referrals: [facility] [place] Orthopedic Surgeons [Provider Group]
[2023-02-28 16:12] VITALS: BP 136/81; PULSE 72; RESP 18; TEMP 36.1; O2SAT 95
--- NOTE | 2023-02-28 16:40 | PC.NURSE ---
called Dorene Mcmahon [facility]- no answer called [facility] number, no answer, left message advising we have a pt ready for discharge, req call back charly
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
--- NOTE | 2023-02-28 18:55 | PC.NURSE ---
pt discharged home with noreen DOLAN
== END 2023-02-28 18:56 | disposition home or self-care (01) ==
PROVIDERS: Emergency Provider Emergency Medicine; PCP Student in an Organized Health Care Education/Training Program
DX: S86.911A Strain of unspecified muscle(s) and tendon(s) at lower leg level, right leg, initial encounter (principal); W19.XXXA Unspecified fall, initial encounter; Y93.9 Activity, unspecified; Y92.9 Unspecified place or not applicable; M25.561 Pain in right knee
CPT/HCPCS: 99283

== ENCOUNTER 2024-06-07 09:55 | Outpatient (REF) | payer OTHER, MEDICAID, SELFPAY ==
[2024-06-07 14:41] LABS: Alanine Aminotransferase 17 U/L (0-31); Albumin Level 3.9 g/dL (3.5-5.0); Alkaline Phosphatase 77 U/L (39-117); Anion Gap 11 (12-20); Aspartate Amino Transferase 27 U/L (5-31); Bilirubin Direct 0.1 mg/dL (0.0-0.5); Bilirubin Total 0.3 mg/dL (0.0-1.0); Blood Urea Nitrogen 13 mg/dL (9-16); Calcium 9.3 mg/dL (8.4-10.2); Carbon Dioxide 26 mmol/L (22-29); Chloride 108 mmol/L (96-108); Cholesterol 247 mg/dL (<200); Estimated Glomerular Filt Rate > 60; Glucose Random 116 mg/dL (60-115); HDL Cholesterol 53 mg/dL (>40); LDL Cholesterol Calculated 156 mg/dL (<100); Potassium 4.1 mmol/L (3.3-5.1); Sodium 141 mmol/L (135-145); Total Protein 7.2 g/dL (6.5-8.0); Triglycerides 190 mg/dL (<150)
== END 2024-06-07 09:56 | disposition home or self-care (01) ==
LOC: HO.CHCLDS 09:55
PROVIDERS: Visit Provider Student in an Organized Health Care Education/Training Program
DX: F25.9 Schizoaffective disorder, unspecified (principal); E66.9 Obesity, unspecified; R41.3 Other amnesia
CPT/HCPCS: 36415; 80048; 80061; 80076

== ENCOUNTER 2024-06-27 11:36 | Outpatient (REF) | payer MEDICARE, OTHER, SELFPAY ==
[2024-06-27 14:42] LABS: MANUAL DIFF FLAG NO
[2024-06-27 14:46] LABS: Basophils Absolute Auto 0.1 X10*3/uL (0.0-0.2); Basophils Percent Auto 0.6 % (0-2); Eosinophils Percent Auto 0.2 % (0-4); Hematocrit 43.4 % (37.0-47.0); Hemoglobin 14.4 g/dl (12.0-16.0); Imm Gran Abs Auto 0.02 X10*3/uL (0.00-0.03); Imm Gran Pct Auto 0.2 % (0.0-0.4); Lymphocytes Absolute Auto 2.6 X10*3/uL (1.2-4.9); Mean Corpuscular HGB Conc 33.2 g/dl (31.0-35.0); Mean Corpuscular Hemoglobin 31.5 pg (27.0-33.0); Mean Platelet Volume 11.5 fL (9.4-12.3); Monocytes Absolute Auto 0.8 X10*3/uL (0.1-1.2); Monocytes Percent Auto 9.8 % (2-11); Neutrophils Percent Auto 58.2 % (45-73); Platelet Count 211 X10*3/uL (160-400); Red Blood Count 4.57 X10*6/uL (4.20-5.50); Red Cell Distribution Width 13.5 % (11.0-16.0); White Blood Count 8.5 X10*3/uL (4.8-10.8)
[2024-06-27 14:48] LABS: INTERNATIONAL NORM RATIO 0.9 (0.9-1.1)
[2024-06-27 18:22] LABS: Bacterial Vaginosis PCR NEGATIVE (Negative); Candida Group PCR NOT DETECTED (Not Detect); Candida glab krusei PCR NOT DETECTED (Not Detect); Trichomonas vaginalis PCR NOT DETECTED (Not Detect)
[2024-07-07 19:43] LABS: C. trachomatis RNA TMA Not Detected (Not Detected); N. gonorrhoeae RNA TMA Not Detected (Not Detected); Trichomonas (NAAT) Not Detected (Not Detected)
== END 2024-06-27 11:37 | disposition home or self-care (01) ==
LOC: HO.CHCLDS 11:36
PROVIDERS: Visit Provider Family Medicine
DX: N95.0 Postmenopausal bleeding (principal); N89.8 Other specified noninflammatory disorders of vagina; Z72.89 Other problems related to lifestyle; Z12.4 Encounter for screening for malignant neoplasm of cervix
CPT/HCPCS: 0352U; 85025; 85610; 87491; 87591; 87661

== ENCOUNTER 2024-06-29 09:29 | Outpatient (REF) | payer MEDICARE, OTHER, SELFPAY ==
[2024-06-29 06:47] LABS: HPV 16,18/45 See PAP report
== END 2024-06-29 09:30 | disposition home or self-care (01) ==
LOC: HO.LNP 09:29
PROVIDERS: Visit Provider Family Medicine
DX: Z12.4 Encounter for screening for malignant neoplasm of cervix (principal); Z11.51 Encounter for screening for human papillomavirus (HPV)
CPT/HCPCS: 87624; 88175

== ENCOUNTER 2024-11-30 17:29 | Emergency (ER) | payer MEDICARE, MEDICAID, SELFPAY ==
[2024-11-30 17:46] VITALS: BP 122/76; BP 142/81; PULSE 109; PULSE 90; RESP 12; TEMP 36.8; O2SAT 88; O2SAT 95; BMI 26.4
[2024-11-30 17:51] VITALS: BP 138/85; PULSE 90; RESP 21; O2SAT 93
[2024-11-30 18:21] VITALS: BP 147/84; PULSE 92; RESP 13; TEMP 36.8; O2SAT 94
[2024-11-30 18:27] LABS: MANUAL DIFF FLAG NO
[2024-11-30 18:43] LABS: Alanine Aminotransferase 22 U/L (0-31); Albumin Level 4.2 g/dL (3.5-5.0); Alkaline Phosphatase 79 U/L (39-117); Anion Gap 16 (12-20); Aspartate Amino Transferase 31 U/L (5-31); Bilirubin Total 0.2 mg/dL (0.0-1.0); Blood Urea Nitrogen 21 mg/dL (9-16); Calcium 9.8 mg/dL (8.4-10.2); Carbon Dioxide 26 mmol/L (22-29); Chloride 107 mmol/L (96-108); Creatinine Clr Calc Pharmacy 79.5; Estimated Glomerular Filt Rate > 60; Glucose Random 129 mg/dL (60-115); Potassium 4.9 mmol/L (3.3-5.1); Sodium 144 mmol/L (135-145); Total Protein 7.5 g/dL (6.5-8.0)
--- NOTE | 2024-11-30 18:54 | ED_ITS ---
HPI - General Adult General Chief complaint: General Medical Stated complaint: onset tremors, [facility] staff concern of seizures Time Seen by Provider: 11/30/24 18:52 Source: EMS and RN notes reviewed Mode of arrival: EMS Limitations: no limitations History of Present Illness ED Provider: HPI narrative: Patient's history of schizoaffective disorder on olanzapine Depakote missed her medication for last 3 days as she refused to take the medicine brought by EMS for tremors and blank stare for 2-5 minutes no incontinence patient does have history of tremors in the past with memory shows patient's seems to be little bit off today no history of seizures no tongue bite Related Data Previous Rx's ?Medication ?Instructions ?Recorded acetaminophen 325 mg tablet 650 mg (2 x 325 mg) PO Q6H PRN 04/06/22 Headache/Pain Mild Scale (1-3) #90 tabs benztropine 1 mg tablet 1 mg PO BID #60 tabs 04/06/22 divalproex 250 mg tablet,extended 1,250 mg (5 x 250 mg) PO BEDTIME 04/06/22 release 24 hr #150 tabs ibuprofen 600 mg tablet 600 mg PO Q8H PRN knee pain #60 04/06/22 tabs olanzapine 10 mg disintegrating 10 mg translingual Q8H PRN 04/06/22 tablet psychotic agitation #30 tabs olanzapine 10 mg intramuscular 15 mg IM BID PRN if pt refuses po 04/06/22 solution zypbarta-alessia #5 ea olanzapine 7.5 mg tablet 15 mg (2 x 7.5 mg) PO BID #120 tabs 04/06/22 sertraline 50 mg tablet 50 mg PO BEDTIME #30 tabs 04/06/22 trazodone 50 mg tablet 50 mg PO BEDTIME PRN Insomnia #3 04/06/22 tabs cephalexin 500 mg capsule 500 mg PO Q12H #14 caps 02/19/23 Allergies Allergy/AdvReac Type Severity Reaction Status Date / Time haloperidol [From Haldol] AdvReac Mild AGITATION Verified 11/30/24 17:50 propranolol AdvReac irregular Verified 11/30/24 17:50 heartbeat Review of Systems 2 Review of Systems: Yes Unobtainable due to mental condition PMFSH Past Medical History Medical History Schizoaffective disorder Social History Social History Household Members: None Housing: Apartment Do you presently have visiting nurse or other home services: No Unable to assess alcohol history related to: Unable to respond Alcohol intake: never Comment: no additional interventions implemented. pt ambulating with steady gait Patient Tobacco Use Status: Tobacco use Unknown Advance Directives: No Advance Directives Information Provided: No service: No Sexual orientation: Did not discuss Physical Exam ED Vital Signs: Vital Signs - 24 hr 11/30/24 17:46 11/30/24 17:51 11/30/24 18:21 Temperature 98.3 F 98.2 F Pulse Rate 90 90 92 Respiratory Rate 12 21 H 13 Blood Pressure 142/81 H 138/85 147/84 H Pulse Oximetry 88 L 93 94 Oxygen Delivery Method Room Air Nasal Cannula Nasal Cannula Oxygen Flow Rate 2 2 BMI result Body Mass Index 26.4 Appearance: Alert. And awake. No acute distress. Eyes: PERRLA, No Nystagmus ENT: Pharynx normal. Oral Mucosa moist no tongue bite Neck: Normal inspection. Neck supple. CVS: Normal heart rate and rhythm. Pulses normal. Respiratory: No respiratory distress. Equal air entry bilateral, no wheezing/rales/rhonchi Abdomen: Soft and nontender. Bowel sounds are present, no mass palpable, no CVA tenderness Skin: Skin warm and dry. Normal skin color. Normal skin turgor. Extremities: No lower extremity edema. No calf tenderness Neuro: Oriented X 3. No motor deficit. Medical Decision Making Medical Decision Making [facility] Narrative: Patient with tremors and blank stare with history of schizoaffective disorder missing her medication for last 3 days no postictal confusion no tongue bite will discharge patient back to skilled nursing advised to give her medications tonight Lab Data [facility] Lab Attestation statement: I reviewed the patient's lab results. 11/30/24 18:23 11/30/24 18:23 Labs: Lab Results 11/30/24 Range/Units 18:23 WBC 11.0 H (4.8-10.8) X10*3/uL RBC 4.79 (4.20-5.50) X10*6/uL Hgb 15.5 (12.0-16.0) g/dl Hct 47.4 H (37.0-47.0) % MCV 99.0 H (80.0-98.0) fL MCH 32.4 (27.0-33.0) pg MCHC 32.7 (31.0-35.0) g/dl RDW 13.6 (11.0-16.0) % Plt Count 196 (160-400) X10*3/uL MPV 10.7 (9.4-12.3) fL Immature Gran % (Auto) 0.3 (0.0-0.4) % Neut % (Auto) 90.0 H (45-73) % Lymph % (Auto) 5.1 L (20-40) % [place] % (Auto) 4.4 (2-11) % Eos % (Auto) 0.0 (0-4) % Baso % (Auto) 0.2 (0-2) % Lymph # (Auto) 0.6 L (1.2-4.9) X10*3/uL [place] # (Auto) 0.5 (0.1-1.2) X10*3/uL Eos # (Auto) 0.0 (0.0-0.4) X10*3/uL Baso # (Auto) 0.0 (0.0-0.2) X10*3/uL Abs Immat Gran (auto) 0.03 (0.00-0.03) X10*3/uL Absolute Neuts (auto) 9.9 H (2.0-8.3) x10*3/uL Absolute Nucleated RBC 0.000 (0.0-0.012) X10*3/uL Nucleated RBC % (auto) 0.0 (0.0-0.2) /100WBC Sodium 144 (135-145) mmol/L Potassium 4.9 (3.3-5.1) mmol/L Chloride 107 (96-108) mmol/L Carbon Dioxide 26 (22-29) mmol/L Anion Gap 16 (12-20) BUN 21 H (9-16) mg/dL Creatinine 0.87 (0.5-1.4) mg/dL Estim Creat Clear Calc 79.5 Estimated GFR > 60 Random Glucose 129 H (60-115) mg/dL Calcium 9.8 (8.4-10.2) mg/dL Total Bilirubin 0.2 (0.0-1.0) mg/dL AST 31 (5-31) U/L ALT 22 (0-31) U/L Alkaline Phosphatase 79 (39-117) U/L Total Protein 7.5 (6.5-8.0) g/dL Albumin 4.2 (3.5-5.0) g/dL Discharge Plan Discharge Clinical Impression: Schizoaffective disorder Patient Disposition: Home, Self-Care Instructions: Schizoaffective Disorder (ED) Additional Instructions: Continue medication as prescribed by psychiatry Labs and vitals are stable Prescriptions: No Action acetaminophen 325 mg Tablet 650 mg PO Q6H PRN (Reason: Headache/Pain Mild Scale (1-3)) Qty: 90 0RF olanzapine 7.5 mg Tablet 15 mg PO BID Qty: 120 0RF benztropine 1 mg Tablet 1 mg PO BID Qty: 60 0RF trazodone 50 mg Tablet 50 mg PO BEDTIME PRN (Reason: Insomnia) Qty: 3 0RF olanzapine 10 mg Tablet,Disintegrating 10 mg translingual Q8H PRN (Reason: psychotic agitation) Qty: 30 0RF ibuprofen 600 mg Tablet 600 mg PO Q8H PRN (Reason: knee pain) Qty: 60 0RF sertraline 50 mg Tablet 50 mg PO BEDTIME Qty: 30 0RF divalproex 250 mg Tablet Extended Release 24 Hr 1,250 mg PO BEDTIME Qty: 150 0RF olanzapine 10 mg Recon Soln 15 mg IM BID PRN (Reason: if pt refuses po zypjaret) Qty: 5 0RF cephalexin 500 mg capsule 500 mg PO Q12H Qty: 14 0RF Interventions: ED Discharge Assessment Last Done: 11/30/24 19:51 Print Language: Dominican
[2024-11-30 18:57] LABS: Basophils Percent Auto 0.2 % (0-2); Hematocrit 47.4 % (37.0-47.0); Hemoglobin 15.5 g/dl (12.0-16.0); Imm Gran Abs Auto 0.03 X10*3/uL (0.00-0.03); Imm Gran Pct Auto 0.3 % (0.0-0.4); Lymphocytes Absolute Auto 0.6 X10*3/uL (1.2-4.9); Lymphocytes Percent Auto 5.1 % (20-40); Mean Corpuscular HGB Conc 32.7 g/dl (31.0-35.0); Mean Corpuscular Hemoglobin 32.4 pg (27.0-33.0); Mean Platelet Volume 10.7 fL (9.4-12.3); Monocytes Absolute Auto 0.5 X10*3/uL (0.1-1.2); Monocytes Percent Auto 4.4 % (2-11); Neutrophils Absolute Auto 9.9 x10*3/uL (2.0-8.3); Platelet Count 196 X10*3/uL (160-400); Red Blood Count 4.79 X10*6/uL (4.20-5.50); Red Cell Distribution Width 13.6 % (11.0-16.0)
--- NOTE | 2024-11-30 19:07 | PC.NURSE ---
Patient is a 62-year-old female with history of schizoaffective disorder presenting to the emergency department with increased tremors per staff and brief period of blank stare Patients mentation went back to baseline and patient ambulated to her room. Patient alert, with flat affect, able to follow commands. Tremors noted to increase with patient care and anxiety. Placed on telemetry monitor and NSR noted. Lungs clear bilat. Respirations even and non-labored. Abdomen soft, non-tender with positive bowel sounds. Positive pedal pulses with no edema.
--- NOTE | 2024-11-30 19:13 | PC.NURSE ---
this rn assumed care of pt, pt unable to state why she came to the hospital at this time. pt noted to have tremors which according to detention are baseline. at bedside, vss.
--- NOTE | 2024-11-30 19:28 | PC.NURSE ---
this rn contacted [facility], Cee from [facility] to provider transport back at this time.
[2024-11-30 19:51] VITALS: BP 162/81; PULSE 88; RESP 20; TEMP 36.5; O2SAT 95
--- NOTE | 2024-11-30 20:16 | PC.NURSE ---
pt ambulated to wheelchair and from chair to guardian's vehicle
== END 2024-11-30 20:16 | disposition home or self-care (01) ==
PROVIDERS: Emergency Provider Internal Medicine
DX: F25.9 Schizoaffective disorder, unspecified (principal); R25.1 Tremor, unspecified; Z79.899 Other long term (current) drug therapy
CPT/HCPCS: 36415; 80053; 85025; 99283; 99284

== ENCOUNTER 2025-04-19 11:24 | Outpatient (REF) | payer MEDICARE, MEDICAID, SELFPAY ==
--- OUTSIDE RECORDS SUMMARY | 2025-04-19 10:00 | XMS_ITS | Encounter Summary ---
Author Organization [employer] Address [address] [place] [address] [address] [place] [address] Care Team Providers Care Fuel House Attendant Name Role Phone Tiffany Crow MD Primary Care Provider [phone] Reason for Referral * Imaging (Routine) - Closed Specialty Diagnoses / Procedures Referred By Dhruv thibodeaux Referred To Contact Radiology Diagnoses Encounter for screening mammogram for malignant neoplasm of breast Procedures BI Mammogram Screening Tomosynthesis Bilateral Karen Rhodes MD [address] [place] [address] Phone: tel: fax: [address] Phone: tel: fax: Referral ID Status Reason Start Date Expiration Date Visits Re quested Visits Authorized [id number] Closed 04/19/2025 04/19/2026 1 1 * Imaging (Routine) - Pending Review Specialty Diagnoses / Procedures Referred By Dhruv thibodeaux Referred To Contact Cardiology Diagnoses Swelling of lower limb Other acute pulmonary embolism without acute cor pulmonale (HCC) Procedures Transthoracic Echo (TTE) Complete Karen Rhodes MD [address] [place] [address] Phone: tel: fax: [address] Phone: tel: fax: Referral ID Status Reason Start Date Expiration Date Visits Requested Visits Authorized [id number] Pending Review Perform Procedure 04/19/2026 1 1 Encounter Details Date Type Department Care Team (Latest Contact Info) Description 04/19/2025 10:00 AM EDT Office Visit [facility] MED [facility] PEDS [address] [place] [address] Karen Rhodes MD [address] [place] [address] Schizoaffective disorder, unspecified type (HCC) (Primary Dx); Single subsegmental pulmonary embolism without acute cor pulmonale (CMS/HCC) (HCC); Swelling of lower limb; Encounter for screening mammogram for malignant neoplasm of breast; Other acute pulmonary embolism without acute cor pulmonale (HCC); Screening for colon cancer Social History Tobacco Use Types Packs/Day Years Used Date Smoking Tobacco: Never Passive Smoke Exposure: Never Smokeless Tobacco: Never Depression Answer Date Recorded Patient Health Questionnaire-9 Score 4 04/19/2025 Patient Health Questionnaire-9 Score 4 04/19/2025 Last PHQ-9: Questionnaire Data Not on file 1 Housing Stability Answer Date Recorded What is your housing situation today? I have dk hendrickson 06/07/[address] you li ve. Do you have problems with any of the following? None of the above 06/07/2024 Food Insecurity Answer Date Recorded Within the past 12 months, y ou worried that your food would run out before you got money to buy more: Never True 06/07/2024 Within the past 12 months,th e food you bought just didn't last and you didn't have enough money to get more: Never True 10/2023 Transportation Answer Date Recorded In the past 12 months, has l ack of transportation kept you from medical appts, meetings, work or from getting things needed for daily living? No 06/07/2024 Utilities Answer Date Recorded In the past 12 months, has t he electric, gas, oil or water company threatened to shut off services in your home? No 06/07/2024 Depression Answer Date Recorded Patient Health Questionnaire-2 Score 0 04/19/2025 Internet Access Answer Date Recorded Internet Access Q1 Yes 10/02/2024 Internet Access Q2 I do not want or need it 09/04 Comments No Sex and Gender Information Value Date Recorded Sex Assigned at Female 05/04/2022 10:20 AM EDT Legal Sex Female 10:20 AM EDT Gender Identity Female 05/04/2022 10:20 AM EDT Sexual Orientation Choose not to disclose 2021 10:20 AM EDT documented as of this encounter Last Filed Vital Signs Vital Sign Reading Time Taken Comments Blood Pressure 137/83 04/19/2025 10:19 AM EDT Pulse 124 04/19/2025 10:19 AM EDT Temperature - - Respiratory Rate 19 04/19/2025 10:19 AM EDT Oxygen Saturation 95% 04/19/2025 10:19 AM EDT Inhaled Oxygen Concentration - - Weight 89.4 kg (197 lb) 04/19/2025 10:19 AM EDT Height 175.9 cm (5' 9.25 ) 04/19/2025 10:19 AM E DT Body Mass Index 28.88 04/19/2025 10:19 AM EDT documented in this encounter Functional Status * Over the past 2 weeks, how often have you been bothered by any of the following problems? Question Answer Date of Assessment Author Patient Health Questionnaire-2 Score 0 04/04 11:14 AM EDT Ivonne Moody MA * Little interest or pleasure in doing things Answer Date of Assessment Author Not at all 04/19/2025 11:14 AM EDT Bret Moody MA * Feeling down, depressed, or hopeless Answer Date of Assessment Author Not at all 04/19/2025 11:14 AM EDT Bret Moody MA * Trouble falling or staying asleep, or sleeping too much Answer Date of Assessment Author Nearly every day 04/19/2025 11:14 AM EDT Ivonne Moody MA * Feeling tired or having little energy Answer Date of Assessment Author Several days 04/19/2025 11:14 AM EDT Bret Moody MA * Poor appetite or overeating Answer Date of Assessment Author Not at all 04/19/2025 11:14 AM EDT Bret Moody MA * Feeling bad about yourself - or that you are a failure or have let yourself or your family down Answer Date of Assessment Author Not at all 04/19/2025 11:14 AM EDT Bret Moody MA * Trouble concentrating on things, such as reading the newspaper or watching television Answer Date of Assessment Author Not at all 04/19/2025 11:14 AM EDT Bret Moody MA * Moving or speaking so slowly that other people could have noticed? Or the opposite - being so fidgety or restless that you have been moving around a lot more than usual. Answer Date of Assessment Author Not at all 04/19/2025 11:14 AM EDT Bret Moody MA * Thoughts that you would be better off or hurting yourself in some way Answer Date of Assessment Author Not at all 04/19/2025 11:14 AM EDT Bret Moody MA * Patient Health Questionnaire-9 Score Answer Date of Assessment Author 4 04/19/2025 11:14 AM EDT Bret Moody MA * How difficult have these problems made it for you to do your work, take care of things at home, or get along with other people? Answer Date of Assessment Author Very difficult 04/19/2025 11:14 AM EDT Bret Moody MA documented as of this encounter Plan of Treatment Scheduled Orders Name Type Priority Associated Diagnoses Orde r Schedule Basic Metabolic Panel Lab Routine Schizoaffective disorder, unspecified type (HCC) Expected: 04/19/2025 (Approximate), Expires: 04/19/2026 Hepatic Function Panel Lab Routine Swelling of lower limb Expected: 04/19/2025 (Approximate), Expires: 04/19/2026 Transthoracic Echo (TTE) Complete Echocardiography Routine Swelling of lower limb Other acute pulmonary embolism without acute cor pulmonale (HCC) Expected: 04/19/2025 (Approximate), Expires: 04/19/2027 BI Mammogram Screening Tomosynthesis Bilateral Imaging Routine Encounter for screening mammogram for malignant neoplasm of breast Expected: 04/19/2025, Expires: 06/19/2026 Cologuard colon cancer screening Lab Routine Screening for colon cancer Expected: 04/19/2025 (Approximate), Expires: 04/19/2026 documented as of this encounter Procedures Procedure Name Priority Date/Time Associated Diagnosis Comments URINALYSIS, COMPLETE, WITH REFLEX TO CULTURE Routine 04/19/2025 11:30 AM EDT Swelling of lower limb documented in this encounter Results * (ABNORMAL) Urinalysis, Complete, with Reflex to Culture (04/19/2025 11:30 AM EDT) Color Urine Yellow [facility] Appearance Urine Clear [facility] PH 5.5 5.0 - 9.0 [facility] Glucose Urine UA Negative Negative mg/dL [facility] Urine Blood Negative Negative [facility] Specific [place] - Urine 1.010 1.005 - 1.025 [facility] Urine Protein Negative Neg-Trace mg/dL [facility] Urine Ketones Negative Negative mg/dL [facility] Nitrite Urine Negative Negative [facility] Leukocyte Esterase Urine Small (1+)(A) Negative [facility] RBC Urine 0-2 0 - 2 /HPF [facility] Urine WBC 11-20(A) 0 - 5 /HPF [facility] Urine Squamous Epithelial Cell 3-5 0 - 2 /HPF [facility] Urine Bacteria Trace None Seen [facility] Hyaline Casts, Urine 0-2 0 - 2 /LPF [facility] Urine 04/19/2025 11:3 0 AM EDT 04/19/2025 2:12 PM EDT Narrative [facility] - 04/19/2025 2:20 PM EDT [id number], Clean Catch us Karen Rhodes MD LAB URINE ORDERABLES Final Result [facility] [address] [place] [address] [phone] documented in this encounter Visit Diagnoses Diagnosis Schizoaffective disorder, unspecified type (HCC)- Primary Single subsegmental pulmonary embolism without acute cor pulmonale (CMS/HCC) (HCC) Swelling of lower limb Encounter for screening mammogram for malignant neoplasm of breast Other acute pulmonary embolism without acute cor pulmonale (HCC) Screening for colon cancer Special screening for malignant neoplasms, colon documented in this encounter Additional Health Concerns Assessment Noted Time PHQ-9 Depression Total Score: 4 04/19/20 25 11:14 AM EDT documented as of this encounter Care Teams Fuel House Attendant Relationship Specialty Start Date End Date Tiffany Crow MD [address] [place] [id number] PCP - General Family Medicine 10/19/17 documented as of this encounter
[2025-04-19 14:15] LABS: Appearance Urine Clear; Glucose Urine UA Negative (Negative); PH 5.5 (5.0-9.0); Specific Gravity - Urine 1.010 (1.005-1.025); UMIC TRIGGER UACC YES
[2025-04-19 14:20] LABS: UACC Culture Trigger YES
--- OUTSIDE RECORDS SUMMARY | 2025-04-19 14:41 | XMS_ITS | Encounter Summary ---
Author Organization [employer] Address [address] [facility] [address] [place] [address] Care Team Providers Care Soaker Name Role Phone Tiffany Crow MD Primary Care Provider Reason for Visit * Reason Onset Date Comments Chart Prep 04/18/2025 Encounter Details Date Type Department Care Team ([facility] st Contact Info) Description 04/18/2025 Telephone [facility] [address] [place] [address] Tiffany Crow MD [address] [place] [address] Chart Prep Social History Tobacco Use Types Packs/Day Years [...] AM EDT documented as of this encounter Miscellaneous Notes * Telephone Encounter - Keiry Mullen MA - 04/18/2025 9:43 AM EDT Chart Prep Labs: not done Images: not done Referrals: complete Vaccines due: Covid and Flu Screenings: colonoscopy and mammogram Overdue care gaps: PHQ-9 and Tobacco documented in this encounter Plan of Treatment Not on file documented as of this encounter Visit Diagnoses Not on filedocumented in this encounter Care Teams Soaker Relationship Specialty Start Date End Date Tiffany Crow MD [address] [place] [address] PCP - General Family Medicine 10/19/17 documented as of this encounter
--- OUTSIDE RECORDS SUMMARY | 2025-04-19 14:41 | XMS_ITS | Encounter Summary ---
Author Organization [employer] Address [address] [facility] [address]t [place] [address] Care Team Providers Care Boiler Control Technician Name Role Phone Tiffany Crow MD Primary Care Provider [phone] Reason for Visit * Reason Onset Date Comments verbal order 04/16/2025 Encounter Details Date Type Department Care Team ([facility] Contact Info) Description 04/16/2025 Telephone [facility] [address] [place] [address] Tiffany Crow MD [address] [place] [address] verbal order Social History Tobacco Use Types Packs/Day Years Used Date Smoking Tobacco: Never Passive Smoke Exposure: Never Smokeless Tobacco: Never Housing Stability Answer Date Recorded What is [...] off services in your home? No 06/07/2024 Internet Access Answer Date Recorded Internet Access [...] encounter Miscellaneous Notes * Telephone Encounter - Jodi Porter RN - 04/17/2025 9:18 AM EDT TC to [facility]. Verbal orders for senior care, PT and OT given. * Telephone Encounter - Stiven Barker - 04/16/2025 3:05 PM EDT Tc from [facility] with liza duckworth requesting verbal orders for home care. Pt is starting 04/17. Contact dalia at [phone] [facility] number a vm can be left with the verbal order. documented in this encounter Plan of Treatment Not on file documented as of this encounter Visit Diagnoses Not on filedocumented in this encounter Care Teams Boiler Control Technician Relationship Specialty Start Date End Date Tiffany Crow MD [address] [place] [id number] PCP - General Family Medicine 10/19/17 documented as of this encounter
--- OUTSIDE RECORDS SUMMARY | 2025-04-19 14:41 | XMS_ITS | Encounter Summary ---
Author Organization [employer] Address [address] [facility] [address]t [place] [address] Care Team Providers Care Pet Counselor Name Role Phone Tiffany Crow MD Primary Care Provider [phone] Reason for Visit * Reason Onset Date Comments Referral 07/08/2023 Encounter Details Date Type Department Care Team ([facility] st Contact Info) Description 07/08/2023 Telephone [facility] [address] [place] [address] Tiffany Crow MD [address] [place] [address] Referral Social History Tobacco Use Types Packs/Day Years Used Date Smoking Tobacco: Never Passive Smoke Exposure: Never Smokeless Tobacco: Never Comments Unknown Sex and Gender Information Value Date Recorded Sex Assigned at Female 05/04/2022 10:20 AM EDT Legal Sex Female 10:20 AM EDT Gender Identity Female 05/04/2022 10:20 AM EDT Sexual Orientation Choose not to disclose 2021 10:20 AM EDT documented as of this encounter Miscellaneous Notes * Telephone Encounter - Inez Noe - 07/08/2023 10:55 AM EST TC to [facility] to get more information as [facility] neurology has multiple providers that can see patient. Cand[facility]aria stated she will call [facility] and gather more information and call us if she requires anything else. * Telephone Encounter - Maco Mullen - 07/08/2023 10:08 AM EST Tc from [facility], nurse at assisted, regarding a referral. Location: [facility] Date: N/A Time: N/A Fax: N/A Specialty: Neurology New referral needed due to Doctor taking extended time off. Please contact Candelaria at [phone]. documented in this encounter Plan of Treatment Not on file documented as of this encounter Visit Diagnoses Not on filedocumented in this encounter Care Teams Pet Counselor Relationship Specialty Start Date End Date Tiffany Crow MD [address] [place] [address] PCP - General Family Medicine 10/19/17 documented as of this encounter
--- OUTSIDE RECORDS SUMMARY | 2025-04-19 14:41 | XMS_ITS | Encounter Summary ---
Author Organization [employer] Address [address] [facility] 7t [place] [address] Care Team Providers Care Wood Heel Attacher Name Role Phone Tiffany Crow MD Primary Care Provider [phone] Reason for Visit * Reason Onset Date Comments Medication Question 06/20/2024 Encounter Details Date Type Department Care Team ([facility] st Contact Info) Description 06/20/2024 Telephone [facility] [address] [place] [address] Tiffany Crow MD [address] [place], [place] [id number] Medication Question Social History Tobacco Use Types Packs/Day Years [...] Access Answer Date Recorded Internet Access Q1 No 06/07/2024 Internet Access Q2 I do not want or need it 10/2023 Comments No Sex and Gender Information Value Date Recorded Sex Assigned at Female 05/04/2022 10:20 AM EDT Legal Sex Female 10:20 AM EDT Gender Identity Female 05/04/2022 10:20 AM EDT Sexual Orientation Choose not to disclose 2021 10:20 AM EDT documented as of this encounter Miscellaneous Notes * Telephone Encounter - Aileen Bey RN - 06/22/2024 11:48 AM EST TC placed to pt who confirms that all prescriptions should be sent to [facility]. This has been added to the pt chart as the preferred pharmacy. Routing message to PCP forreview * Telephone Encounter - Tiffany Crow MD - 06/22/2024 10:20 AM EST Need a pharmacy in the chart * Telephone Encounter - Vivienne Luong RN - 06/20/2024 12:10 PM EST Telephone call returned to patient in regards to below message. Patient stating she had asked aboutibuprofen for knee pain. Advised it is not in note but may have just been missed and will send to PCP to add medication. Patient verbalized understanding and denied having any further questions or concerns at this time. Patient to follow up as needed. * Telephone Encounter - Maco Mullen - 06/20/2024 11:29 AM EST Tc from pt requesting call back to verify why the ibuprofen prescribed during visit on 06/07 never went through. documented in this encounter Plan of Treatment Not on file documented as of this encounter Visit Diagnoses Not on filedocumented in this encounter Care Teams Wood Heel Attacher Relationship Specialty Start Date End Date Tiffany Crow MD [address] [place] [address] PCP - General Family Medicine 10/19/17 documented as of this encounter
--- OUTSIDE RECORDS SUMMARY | 2025-04-19 14:41 | XMS_ITS | Encounter Summary ---
Author Organization [employer] Address [address] [facility] 7t [place] [address] Care Team Providers Care Framing Carpenter Name Role Phone Tiffany Crow MD Primary Care Provider [phone] Encounter Details Date Type Department Care Team ([facility] st Contact Info) Description 06/22/2024 Orders Only [facility] MED & PEDS [address] [place] [address] Tiffany Crow MD [address] [place] [address] Social History Tobacco Use Types Packs/Day Years [...] AM EDT documented as of this encounter Plan of Treatment Not on file documented as of this encounter Visit Diagnoses Not on filedocumented in this encounter Care Teams Framing Carpenter Relationship Specialty Start Date End Date Tiffany Crow MD [address] [place] [phone] PCP - General Family Medicine 10/19/17 documented as of this encounter
--- OUTSIDE RECORDS SUMMARY | 2025-04-19 14:41 | XMS_ITS | Encounter Summary ---
Author Organization [employer] Address [address] [facility] [address] [place] [address] Care Team Providers Care Joiner Name Role Phone Tiffany Crow MD Primary Care Provider [phone] Encounter Details Date Type Department Care Team (Latest Contact Info) Description 04/19/2025 Travel Social History Tobacco Use Types Packs/Day Years Used Date Smoking Tobacco: Never Passive Smoke Exposure: Never Smokeless Tobacco: Never Depression Answer Date Recorded Patient Health Questionnaire-9 Score 4 04/19/2025 Patient Health Questionnaire-9 Score 4 04/19/2025 Last PHQ-9: Questionnaire Data Not on file 1 Housing Stability Answer Date Recorded What is your housing situation today? I have dkheather hendrickson 06/07/[address] you [...] AM EDT documented as of this encounter Functional Status * Over the [...] Author Not at all 04/19/2025 11:14 AM HONGT Bret Moody MA * Trouble falling or [...] Author Not at all 04/19/2025 11:14 AM EDBret Nickerson MA * Feeling bad about yourself - or that you are a failure or have let yourself or your family down Answer Date of Assessment Author Not at all 04/19/2025 11:14 AM EDT Bret Moody MA * Trouble concentrating on things, such as reading the newspaper or watching television Answer Date of Assessment Author Not at all 04/19/2025 11:14 AM HONGT Bret Moody MA * Moving or speaking so slowly that other people could have noticed? Or the opposite - being so fidgety or restless that you have been moving around a lot more than usual. Answer Date of Assessment Author Not at all 04/19/2025 11:14 AM Bret Ellison MA * Thoughts that you would be [...] Diagnoses Not on filedocumented in this encounter Additional Health Concerns Assessment Noted Time PHQ-9 Depression Total Score: 4 04/19/20 25 11:14 AM EDT documented as of this encounter Care Teams Joiner Relationship Specialty Start Date End Date Tiffany Crow MD [address] [place] [id number] PCP - General Family Medicine 10/19/17 documented as of this encounter
--- OUTSIDE RECORDS SUMMARY | 2025-04-19 14:41 | XMS_ITS | Clinical Summary ---
Author Organization [employer] Address 75 [facility] 7t [place] [address] Care Team Providers Care Test And Balance Engineer Name Role Phone Tiffany Crow MD Primary Care Provider [phone] Allergies Active Allergy Reactions Criticality Noted Date Comments Haloperidol Palpitations Low 05/08/2013 Other reaction(s): Altered Heart Rate Propranolol Palpitations Low 05/08/2013 Medications sertraline (Zoloft) 50 MG tablet Take 3 tablets by mouth at bedtime. 05/27/20 22 Active amantadine (Symmetrel) 100 MG capsule Take 100 mg by mouth 2 times daily. Active divalproex (Depakote ER) 500 MG 24 hr tablet Take 1 tablet by mouth 2 times daily. 04/14/20 25 Active memantine (Namenda) 5 MG tablet Take 1 tablet by mouth 2 times daily. 12/02/19 25 Active Eliquis 5 MG tablet Take 1 tablet by mouth 2 times daily. 04/16/20 25 Active Vraylar 6 MG capsule Take 1 capsule by mouth Once per day. 04/07/20 25 Active furosemide (Lasix) 40 MG tablet Take 1 tablet by mouth Once per day. 04/16/20 25 Active OLANZapine (ZyPREXA) 20 MG tablet Take 1 tablet by mouth at bedtime. 04/14/20 25 Active pantoprazole (ProtoNix) 40 MG EC tablet Take 1 tablet by mouth Once per day. 02/15/20 25 Active propranolol (Inderal) 10 MG tablet Take 1 tablet by mouth 2 times daily. 04/14/20 25 Active benztropine (Cogentin) 1 MG tablet TAKE 1&1/2 TABLET BY MOUTH EVERY MORNING AND 1 TABLET EVERY EVENING 05/04/20 22 2024 Discontinued(M ed list cleanup (will not trigger notification to Pharmacy)) hydrOXYzine pamoate (Vistaril) 50 MG capsule TAKE 1 CAPSULE BY MOUTH TWICE DAILY NEEDED FOR ANXIETY 06/01/202024 Discontinued(M ed list cleanup (will not trigger notification to Pharmacy)) OLANZapine zydis (ZyPREXA) 10 MG disintegrating tablet DISSOLVE 1 TABLET UNDER THE TONGUE EVERY 8 HOURS NEEDED FOR PSYCHOTIC AGITATION 05/19/202024 Discontinued(M ed list cleanup (will not trigger notification to Pharmacy)) OLANZapine (ZyPREXA) 5 MG tablet Take 3 tablets by mouth at bedtime. 2024 Discontinued(M ed list cleanup (will not trigger notification to Pharmacy)) traZODone (Desyrel) 50 MG tablet TAKE 1-3 TABLETS BY MOUTH AT BEDTIME 05/26/202024 Discontinued(M ed list cleanup (will not trigger notification to Pharmacy)) divalproex (Depakote ER) 250 MG 24 hr tablet 08/18/19 24 2024 Discontinued(M ed list cleanup (will not trigger notification to Pharmacy)) Active Problems Problem Noted Date Diagnosed Date Pulmonary embolism 04/19/2025 Cervical cancer screening 06/27/2024 Assessment & Plan (06/27/2024 11:36 AM EST): 63 y.o. here for cervical cancer screening. Will continue monitoring following ASCCP guidelines. Memory deficits 06/08/2022 Obesity 02/14/2013 Schizoaffective disorder (CMS/HCC) 05/30/2012 Tremor 05/30/2012 Encounters Date Type Department Care Team Description 04/19/2025 10:00 AM EDT Office Visit [facility] MED & PEDS [address] [place] [address] Karen Rhodes MD Schizoaffective disorder, unspecified type (HCC) (Primary Dx); Single subsegmental pulmonary embolism without acute cor pulmonale (CMS/HCC) (HCC); Swelling of lower limb; Encounter for screening mammogram for malignant neoplasm of breast; Other acute pulmonary embolism without acute cor pulmonale (HCC); Screening for colon cancer 04/19/2025 Travel 04/18/2025 Telephone [facility] [address] [place] [address] Tiffany Crow MD Chart Prep 04/16/2025 Telephone [facility] CH[facility] MED & PEDS [address] [place] [address] Tiffany Crow MD verbal order from Last 3 Months Immunizations Immunization Administration Dates Next Due Tdap 06/07/2024,12/30/2011 Social History Tobacco Use Types Packs/Day Years Used Date Smoking Tobacco: Never Passive Smoke Exposure: Never Smokeless Tobacco: Never Tobacco Cessation:Counseling Given: Not Answered Depression Answer Date Recorded Patient Health Questionnaire-9 [...] not to disclose 2021 10:20 AM EDT Last Filed Vital Signs Vital Sign Reading Time Taken Comments Blood Pressure 137/83 04/19/2025 10:19 AM EDT Pulse 124 04/19/2025 10:19 AM EDT Temperature 36.6 C (97.9 F) 10/10/2024 10:05 AM EDT Respiratory Rate 19 04/19/2025 10:19 AM EDT Oxygen Saturation 95% 04/19/2025 10:19 AM EDT Inhaled Oxygen Concentration - - Weight 89.4 kg (197 lb) 04/19/2025 10:19 AM EDT Height 175.9 cm (5' 9.25 ) 04/19/2025 10:19 AM E DT Body Mass Index 28.88 04/19/2025 10:19 AM EDT Plan of Treatment Health Maintenance Due Date Last Done Comments CT Colonography 1960 Colonoscopy 1960 Colorectal Cancer Screening 1960 FIT DNA/Cologuard 1960 FIT 1960 FOBT 1960 Sigmoidoscopy 1960 Hepatitis C Screening 1976 Mammogram 1998 RSV Patients and Patients Aged 60 years or older (1 - Risk 60-74 years 1-dose series) 2018 Dental Oral Exam 04/21/2025 10/19/2024, 10/29/2017, 08/18/2012 Dental Prophylaxis 04/21/2025 10/19/2024, 12/08/2017 Alcohol/Substance Use Screening 06/07/2025 06/07/2024 Pneumococcal Vaccine: 50+ Years (1 of 1 - PCV) 06/27/2025 Postponed from 2008 (Patient Refused) Zoster Vaccines (1 of 2) 06/27/2025 Pos tponed from 2008 (Patient Refused) SDOH Screening 10/02/2025 10/02/2024 Tobacco Screening 10/19/2025 10/19/2024 Dental X-Ray: Bitewings 10/20/2025 10/20/19 25, 10/29/2017 Influenza Vaccine (#1) 2026 Postp oned from 03/05/2025 (Patient Refused) COVID-19 Vaccine (1 - 2023-2 5 season) 2026 Postponed from 03/05/2025 (Patient Refused) Depression Screening 04/19/2026 04/19/2025, 04/19/2025 Dental X-Ray: Full Mouth 10/21/2027 025, 10/29/2017 Lipid Panel 06/07/2029 06/07/2024 DTaP/Tdap/Td Vaccines (3 - T d or Tdap) 06/07/2034 06/07/2024, 12/30/2011 Cervical Cancer Screening Discontinued Pap Smear Discontinued 06/27/2024 HIB Vaccines Aged Out No longer eligi ble based on patient's age to complete this topic HPV Vaccines Aged Out No longer eligi ble based on patient's age to complete this topic HPV/Cotest Discontinued Hepatitis A Vaccines Aged Out No long er eligible based on patient's age to complete this topic Hepatitis B Vaccines Aged Out No long er eligible based on patient's age to complete this topic IPV Vaccines Aged Out No longer eligi ble based on patient's age to complete this topic Meningococcal B Vaccine Aged Out No l onger eligible based on patient's age to complete this topic Meningococcal Vaccine Aged Out No raven jojo eligible based on patient's age to complete this topic RSV under 20 months Aged Out No longe r eligible based on patient's age to complete this topic Rotavirus Vaccines Aged Out No longer eligible based on patient's age to complete this topic Procedures Procedure Name Priority Date/Time Associated Diagnosis Comments URINALYSIS, COMPLETE, WITH REFLEX TO CULTURE Routine 04/19/2025 11:30 AM EDT Swelling of lower limb PROPHYLAXIS - ADULT Routine 10/19/2024 1 0:00 AM EDT INTRAORAL - COMPLETE SERIES OF RADIOGRAPHIC IMAGES Routine 10/19/2024 10:00 AM EDT PERIODIC ORAL EVALUATION - ESTABLISHED PATIENT Routine 10/19/2024 10:00 AM EDT PAP SMEAR Routine 06/27/2024 12:00 AM EST Cervical cancer screening LIPID PANEL, STANDARD Routine 06/07/2024 9:56 AM EST Schizoaffective disorder, unspecified type (CMS/HCC) Memory deficits Obesity (BMI 35.0-39.9 without comorbidity) from Last 3 Months or Most Recently Relevant to Health Maintenance Results * (ABNORMAL) Urinalysis, Complete, with Reflex to Culture (04/19/2025 11:30 AM EDT) Color Urine Yellow [facility] Appearance Urine Clear [facility] PH 5.5 5.0 - 9.0 [facility] Glucose Urine UA Negative Negative mg/dL [facility] Urine Blood Negative Negative [facility] Specific Maxwell - Urine 1.010 1.005 - 1.025 [facility] Urine Protein Negative Neg-Trace mg/dL [facility] Urine Ketones Negative Negative mg/dL [facility] Nitrite Urine Negative Negative [facility] Leukocyte Esterase Urine Small (1+)(A) Negative [facility] RBC Urine 0-2 0 - 2 /HPF [facility] Urine WBC 11-20(A) 0 - 5 /HPF [facility] Urine Squamous Epithelial Cell 3-5 0 - 2 /HPF [facility] Urine Bacteria Trace None Seen [facility] Hyaline Casts, Urine 0-2 0 - 2 /LPF [facility] Urine 04/19/2025 11:3 0 AM EDT 04/19/2025 2:12 PM EDT Narrative [facility] - 04/19/2025 2:20 PM EDT [id number], Clean Catch Karen Rhodes MD LAB URINE ORDERABLES Final Result [facility] [address] [place] [address] [phone] * Pap Smear (06/27/2024 12:00 AM EST) Swab Cervix uteri structure / Unknown 06/27/2024 06/29/2024 6:10 AM EST [facility] - 07/03/2024 10:39 AM EST ----- ------- Name: Jhon Celaya Age/Sex: 63/F : 1960 Unit#: [id number] Attend Dr: Jen Link MD Re06/29/24 Status: DEP REF [facility]: [facility] Disch: ----- ------- SPEC : [id number] RECD: 06/29/24 STATUS: TANIYA MORRISON NUM: [id number] SHASHA: 06/27/240000 SUBM DR: Jen Link MD ENTERED: 06/29/24 SP TYPE: Pap Smr OTHR : ORDERED: Pap Smear Interpretation Satisfactory for evaluation. Negative for intraepithelial lesion or malignancy. Obscuring inflammation. Scant cellularity. Abundant blood. HPV High Risk: Negative HPV Genotyping 16: Negative HPV Genotyping 18: Negative Clinical Information LMP: Not reported Previous PAP test: Normal Other surgery: Other history: Material Received ThinPrep- site not specified ----- ------- Signed (signature on file) MIKIE Motley (ASCP) 07/03/24 [id number] ----- ------- END OF REPORT us Jen Link MD LAB CYTOLOGY ORDERABLES Final Result Performing Organization Address [facility] de Phone Number [facility] [address] [place] [phone] * (ABNORMAL) Lipid Panel, Standard (06/07/2024 9:56 AM EST) Triglycerides 190(H) <150 mg/dL [facility] Comment:Desirable Triglyceri de: less than 150 mg/dLBorderline High Triglyceride 150-199 mg/dLHigh Triglyceride: 200-499 mg/dLVery High Triglyceride: greater than or equal to 5OO mg/dL Cholesterol 247(H) <200 mg/dL [facility] Comment:Desirable Cholestero l: less than 200 mg/dLBorderline High Cholesterol: 200-239 mg/dLHigh Cholesterol: greater than 239 mg/dL LDL Cholesterol Calculated 156(H) <100 mg/dL [facility] Comment:Desirable LDL: less than 100 mg/dLNear Optimal/Above Optimal LDL: 110- 129 mg/dLBorderline High LDL: 130-159 mg/dLHigh LDL: 160-189 mg/dLVery High LDL: greater than or equal to 190 mg/dL HDL Cholesterol 53 >40 mg/dL [facility] Comment:Desirable HDL: great er than 40 mg/dL Note: This HDL assay may give artificially low results in patients with liver disease. Blood Venous blood specimen / Unknown 06/07/2024 9:56 AM EST 06/07/2024 2:05 PM EST us Tiffany Crow MD LAB BLOOD ORDERABLES Final Resul t Performing Organization Address City/[facility]/ZIP Co de Phone Number [facility] [address] [place] [address] [phone] from Last 3 Months or Most Recently Relevant to Health Maintenance Insurance MEDICARE [place] [id number] DENTAL - HSN FULL (MEDICAID) Care Teams Test And Balance Engineer Relationship Specialty Start Date End Date Tiffany Crow MD [address] [place] [id number] PCP - General Family Medicine 10/19/17
[2025-04-19 14:54] LABS: Alanine Aminotransferase 36 U/L (0-31); Albumin Level 3.7 g/dL (3.5-5.0); Alkaline Phosphatase 132 U/L (39-117); Anion Gap 12 (12-20); Aspartate Amino Transferase 30 U/L (5-31); Blood Urea Nitrogen 12 mg/dL (9-16); Calcium 9.1 mg/dL (8.4-10.2); Carbon Dioxide 29 mmol/L (22-29); Chloride 106 mmol/L (96-108); Estimated Glomerular Filt Rate > 60; Potassium 3.8 mmol/L (3.3-5.1); Sodium 143 mmol/L (135-145); Total Protein 6.6 g/dL (6.5-8.0)
== END 2025-04-19 11:25 | disposition home or self-care (01) ==
LOC: HO.CHCLDS 11:24
PROVIDERS: Visit Provider Internal Medicine
DX: F25.9 Schizoaffective disorder, unspecified (principal); M79.89 Other specified soft tissue disorders; R82.90 Unspecified abnormal findings in urine
CPT/HCPCS: 36415; 80048; 80076; 81001; 87086

== ENCOUNTER → 2025-05-17 14:50 | Outpatient (REF) | payer MEDICARE, MEDICAID, SELFPAY ==
--- NOTE | 2025-05-17 15:00 | CA_ITS ---
Transthoracic Echocardiogram Patient (Last, First, Middle): Jhon Celaya, Gender: F Date of : 1960 Age: 64 Procedure Date: 05/17/2025 Procedure Type: Transthoracic Echocardiogram Location: OP Height: 180.34 cm Weight: 92.99 kg BSA: 2.13 m2 Heart Rate: bpm BP: 128 / 72 mmHg Special Procedures Nurse: TO Referring MD: Karen Rhodes MD Inhalation Therapy Teacher: Sanchez Veras MD Symptoms: SWELLING OF LOWER LIMB, PULMONARY EMBOLISM Study Quality: Adequate w contrast ECG Rhythm: Sinus Conclusions: - 1. Normal LV ejection fraction 55-60% 2. Normal cardiac valvular Dopplers next 3. Normal RV systolic pressure 4. No gross pericardial effusion Findings Procedure Information Contrast agent, definity, is being given per protocol without apparent complications. Left Ventricle Normal left ventricular size, thickness, and systolic function. The visually estimated ejection fraction is between 55-60%. Spectral Doppler is indicative of a normal filling pattern. Right Ventricle Normal right ventricular cavity size and systolic function. Atria Both atria are normal in size. There is no evidence of interatrial shunt. Aortic Valve Normal aortic valve structure and function. There is no aortic valve stenosis. There is trace (trivial) aortic valve regurgitation. Mitral Valve Normal mitral valve structure and function. There is trace mitral valve regurgitation. There is no mitral valve stenosis. Pulmonic Valve The pulmonic valve is likely normal. There is trace pulmonic valve regurgitation. Tricuspid Valve Normal tricuspid valve structure. There is trace tricuspid valve regurgitation. The right ventricular systolic pressure is normal. The right ventricular systolic pressure is 21 mmHg. Normal right atrial pressure. There is no evidence of pulmonary hypertension. Great Vessels All visible segments of the aorta are normal in size. The pulmonary artery was not well visualized. Venous The inferior vena cava is normal in size and collapses greater than 50% with inspiration. Pericardium/Pleural There is no evidence of pericardial effusion. Prior Study Comparison No prior study available for comparison. Measurements 2D Linear Measurements IVSd: 0.74 0.6-0.9/0.6-1.0 cm LVIDd: 4.67 3.9-5.3/4.2-5.9 cm LVIDd Index: 2.19 2.4-3.2/2.2-3.1 cm/m2 LVIDs: 3.21 2.0-3.6 cm LVPWd: 0.82 0.7-1.1 cm LA Diam: 3.30 2.7-3.8/3.0-4.0 cm LAIDs Index: 1.55 1.5-2.3 cm/m2 LV Mass: 145.80 67-162/88-224 g LV Mass Index: 68.45 43-95/49-115 g/m2 LVOT Diam: 2.10 3.0+(-)1.3 cm 2D Systolic Function EF 4C: 56.50 >55% EF 2C: 61.90 >55% EF BiP: 58.50 >55% Mitral Valve MV Pk E: 0.72 MV PK A: 0.49 MV Decel Time: 166.00 E/A: 1.50 E'Lateral: 9.90 E'Medial: 9.14 E/E' Med: 7.80 E/E' Lat: 7.20 PHT: 49.00 MVA PHT: 4.49 Decel [place]: 4.30 Aortic Valve AoV Pk Valentin: 1.32 AoV Mn Valentin: 0.86 AoV VTI: 0.30 AoV Pk Grad: 7.00 Aov Mn Grad: 3.00 KATHARINE Cont.VTI: 2.80 LVOT LVOT Pk Valentin: 1.01 LVOT Mn Valentin: 0.70 LVOT VTI: 0.24 LVOT Pk Grad: 4.00 LVOT Mn Grad: 2.00 LVOT Diam: 2.10 LVOT Area: 3.46 Diastolic Function MV Pk E: 0.72 MV Pk A: 0.49 E/A: 1.50 E'Medial: 9.14 E/E' Med: 7.80 E' Laterial: 9.90 E/E' Lat: 7.20 Right Ventricle TAPSE (mm): 20.40 TVS' Valentin: 11.70 Tricuspid Valve TR Pk Valentin: 2.10 TR Pk Grad: 18.00 RA Press: 3.00 RVSP: 21.00 Great Vessels Aorta Sinus of Valsalva: 3.16 2.0-3.5 cm Ao Asc: 3.40 2.1-3.4 cm Updated in Other Vendor System with Status of Final Sanchez Veras MD electronically signed on 05/17/2025 5:51:38 PM with status of Final
--- OUTSIDE RECORDS SUMMARY | 2025-05-17 18:05 | XMS_ITS | Encounter Summary ---
Author Organization [employer] Address 75 [facility] 7t [place] [address] Care Team Providers Care General Supervisor Name Role Phone Tiffany Crow MD Primary Care Provider [phone] Garett Hamilton CNP Primary Care Provider [phone] Reason for Visit * Reason Onset Date Comments Medication Question 06/20/2024 Encounter Details Date Type Department Care Team ([facility] st Contact Info) Description 06/20/2024 Telephone [facility] [address] [place], [place] [phone] Tiffany Crow MD [address] [place], [place] [phone] Medication Question Social History Tobacco Use Types [...] that all prescriptions should be sent to [facility]. This has been added to the pt [...] on filedocumented in this encounter Care Teams General Supervisor Relationship Specialty Start Date End Date Tiffany Crow MD [address] [place] [phone] PCP - General Family Medicine 10/19/17 05/06/25 Garett Hamilton CNP [address] [place] [phone] PCP - General Family Medicine 05/07/25 [facility] 04/18/25 documented as of this encounter
--- OUTSIDE RECORDS SUMMARY | 2025-05-17 18:05 | XMS_ITS | Encounter Summary ---
Author Organization [employer] Address 75 [facility] 7t [place] [address] Care Team Providers Care Steam Turbine Assembler Name Role Phone Tiffany Crow MD Primary Care Provider [phone] Garett Hamilton CNP Primary Care Provider [phone] Reason for Visit * Reason Onset Date Comments Results 04/20/2025 Encounter Details Date Type Department Care Team ([facility] st Contact Info) Description 04/20/2025 Results Follow-Up [facility] MED & PEDS [address] [place] [address] Viviane Casas RN Basic Metabolic Panel, Hepatic Function Panel, Urinalysis, Complete, with Reflex to Culture Social History Tobacco Use Types Packs/Day Years [...] encounter Miscellaneous Notes * Telephone Encounter - Viviane Casas RN - 04/20/2025 10:34 AM EDT ----- Message from Karen Rhodes MD sent at 04/19/2025 7:20 PM EDT ----- Please call. Labs reviewed: Elevated Alk Phosphatase and Elevated ALT. Pt needs a work up w an US of the abdomen in an attempt to find the cause. If the work up is normal, her medication might need to be reviewed with her PCP and Psychiatrist. ----- Message ----- From: Interface, Lab Results In Sent: 04/19/2025 2:19 PM EDT To: Karen Rhodes MD documented in this encounter Plan of Treatment Not on file documented as of this encounter Visit Diagnoses Not on filedocumented in this encounter Additional Health Concerns Assessment Noted Time PHQ-9 Depression Total Score: 4 04/19/20 11:14 AM EDT documented as of this encounter Care Teams Steam Turbine Assembler Relationship Specialty Start Date End Date Tiffany Crow MD [address] [place] [id number] PCP - General Family Medicine 10/19/17 05/06/25 Garett Hamilton CNP [address] [place] [id number] PCP - General Family Medicine 05/07/25 [facility] 04/18/25 documented as of this encounter
--- OUTSIDE RECORDS SUMMARY | 2025-05-17 18:05 | XMS_ITS | Encounter Summary ---
Author Organization [employer] Address 75 [facility] 7 [place] [address] Care Team Providers Care Oil Fire Specialist Name Role Phone Garett Hamilton CNP Primary Care Provider [phone] Reason for Visit * Reason Onset Date Comments Med Refill 05/17/2025 Encounter Details Date Type Department Care Team (Late st Contact Info) Description 05/17/2025 Refill [facility] [address] [place] [address] Garett Hamilton CNP [address] [place] [address] Social History Tobacco Use Types Packs/Day Years [...] encounter Miscellaneous Notes * Telephone Encounter - Candelaria Hodgson LPN - 05/17/2025 11:22 AM EST PCP out. Patient last saw you on 04/19/25. Medications were from [facility] discharge medications pended if agreeable. * Telephone Encounter - Stiven Barker - 05/17/2025 11:14 AM EST TC from pt requesting medication refill. Medications needing refill : Eliquis 5 MG tablet To be sent to: [facility] - [place], [place] - [address] documented in this encounter Plan of Treatment Not on file documented as of this encounter Visit Diagnoses Not on filedocumented in this encounter Additional Health Concerns Assessment Noted Time PHQ-9 Depression Total Score: 4 04/19/20 11:14 AM EDT documented as of this encounter Care Teams Oil Fire Specialist Relationship Specialty Start Date End Date Garett Hamilton CNP [address] [place] [id number] PCP - General Family Medicine 05/07/25 [facility] 04/18/25 documented as of this encounter
--- OUTSIDE RECORDS SUMMARY | 2025-05-17 18:05 | XMS_ITS | Clinical Summary ---
Author Organization [employer] Address [address] [facility] 7t [place] [address] Care Team Providers Care Traffic Circuit Engineer Name Role Phone Garett Hamilton NUT BLANKER OPERATOR Primary Care Provider [phone] Allergies Active Allergy Reactions Criticality Noted Date [...] mouth 2 times daily. 12/02/19 25 Active Vraylar 6 MG capsule Take 1 capsule by mouth Once per day. 04/07/20 25 Active OLANZapine (ZyPREXA) 20 MG tablet Take 1 tablet by mouth at bedtime. 04/14/20 25 Active propranolol (Inderal) 10 MG tablet Take 1 tablet by mouth 2 times daily. 04/14/20 25 Active apixaban (Eliquis) 5 MG tablet TAKE 1 TABLET BY MOUTH TWICE A DAY 60 tablet 05/17/20 25 Active furosemide (Lasix) 40 MG tablet TAKE 1 TABLET BY MOUTH EVERY DAY 30 tablet 05/17/20 25 Active pantoprazole (ProtoNix) 40 MG EC tablet TAKE 1 TABLET BY MOUTH EVERY DAY 30 tablet 05/17/20 25 Active Eliquis 5 MG tablet Take 1 tablet by mouth 2 times daily. 04/16/20 25 025 Discontinued(Re order (will not trigger notification to Pharmacy)) furosemide (Lasix) 40 MG tablet Take 1 tablet by mouth Once per day. 04/16/20 025 Discontinued(Re order (will not trigger notification to Pharmacy)) pantoprazole (ProtoNix) 40 MG EC tablet Take 1 tablet by mouth Once per day. 02/15/20 025 Discontinued(Re order (will not trigger notification to Pharmacy)) Active Problems Problem Noted Date Diagnosed Date Pulmonary embolism 04/19/2025 Cervical cancer screening 06/27/2024 Assessment & Plan (06/27/2024 11:36 AM EST): 63 y.o. here for cervical cancer screening. Will continue monitoring following ASCCP guidelines. Memory deficits 06/08/2022 Obesity 02/14/2013 Schizoaffective disorder (CMS/HCC) 05/30/2012 Tremor 05/30/2012 Encounters Date Type Department Care Team Description 05/17/2025 Telephone [facility] [address] [place] [address] Garett Hamilton CNP Med Refill 05/17/2025 Refill [facility] [address] [place] [address] Garett Hamilton CNP 05/16/2025 Telephone [facility] [address] [place], [place] [phone] Garett Hamilton CNP Call Back Request 04/23/2025 Results Follow-Up [facility] [address] [place] [address] Karen Rhodes MD Culture, Urine, Routine 04/20/2025 Results Follow-Up [facility] [address] [place] [address] Viviane Casas RN Basic Metabolic Panel, Hepatic Function Panel, Urinalysis, Complete, with Reflex to Culture 04/19/2025 10:00 AM EDT Office Visit [facility] [address] [place] [address] Karen Rhodes MD Schizoaffective disorder, unspecified type (HCC) (Primary Dx); Single subsegmental pulmonary embolism without acute cor pulmonale (CMS/HCC) (HCC); Swelling of lower limb; Encounter for screening mammogram for malignant neoplasm of breast; Other acute pulmonary embolism without acute cor pulmonale (HCC); Screening for colon cancer 04/19/2025 Orders Only [facility] [address] [place] [address] Karen Rhodes MD Transaminitis (Primary Dx); Elevated alkaline phosphatase level 04/19/2025 Travel 04/18/2025 Telephone [facility] [address] [place] [address] Tiffany Crow MD Chart Prep 04/16/2025 Telephone [facility] [address] [place] [address] Tiffany Crow MD verbal order from Last [...] 1960 Hepatitis C Screening 1976 Mammogram 1998 Dental Oral Exam 04/21/2025 10/19/2024, 10/29/2017, 08/18/2012 Dental Prophylaxis 04/21/2025 10/19/2024, 12/08/2017 Alcohol/Substance Use Screening 06/07/2025 06/07/2024 Pneumococcal Vaccine: 50+ Years (1 of 1 - PCV) 06/27/2025 Postponed from 2008 (Patient Refused) Zoster Vaccines (1 of 2) 06/27/2025 Pos tponed from 2008 (Patient Refused) SDOH Screening 10/02/2025 10/02/2024 Dental X-Ray: Bitewings 10/20/2025 10/20/19 25, 10/29/2017 Influenza Vaccine (#1) 2026 Postp oned from 03/05/2025 (Patient Refused) COVID-19 Vaccine (1 - 2024-2 6 season) 2026 Postponed from 03/05/2025 (Patient Refused) Depression Screening 04/19/2026 04/19/2025, 04/19/2025 Tobacco Screening 04/20/2026 04/20/2025 Dental X-Ray: Full Mouth 10/21/2027 025, 10/29/2017 Lipid Panel 06/07/2029 06/07/2024 RSV Patients and Patients Aged 60 years or older (1 - 1-dose 75+ series) 2033 DTaP/Tdap/Td Vaccines (3 - T d or [...] Procedure Name Priority Date/Time Associated Diagnosis Comments CULTURE, URINE, ROUTINE Routine 04/19/2025 4:34 PM EDT Transaminitis URINALYSIS, COMPLETE, WITH REFLEX TO CULTURE Routine 04/19/2025 11:30 AM EDT Swelling of lower limb HEPATIC FUNCTION PANEL Routine 04/19/2025 10:59 AM EDT Swelling of lower limb BASIC METABOLIC PANEL Routine 04/19/2025 10:59 AM EDT Schizoaffective disorder, unspecified type (HCC) PROPHYLAXIS - ADULT Routine 10/19/2024 1 0:00 [...] Recently Relevant to Health Maintenance Results * Culture, Urine, Routine (04/19/2025 4:34 PM EDT) Urine Urine specimen obtained by clean catch procedure / Unknown 04/19/2025 4:34 PM EDT 04/19/2025 4:34 PM EDT Comment:CC Narrative [facility] - 04/21/2025 10:03 AM EDT Urine Culture Report Result Urine Culture 50,000 to 100,000 cfu/ml Urine Culture Mixed bacterial jorge characteristic of Urine Culture urogenital contamination. Specimen Source: Urine clean catch us Karen Rhodes MD LAB MICROBIOLOGY - GENERAL ORDERABLES Final Result [facility] [address] [place] [phone] [phone] * (ABNORMAL) Urinalysis, Complete, with Reflex to Culture (04/19/2025 11:30 AM EDT) Color Urine Yellow [facility] Appearance Urine Clear [facility] PH 5.5 5.0 - 9.0 [facility] Glucose Urine UA Negative Negative mg/dL [facility] Urine Blood Negative Negative [facility] Specific Perry - Urine 1.010 1.005 - 1.025 [facility] Urine Protein Negative Neg-Trace mg/dL [facility] Urine Ketones Negative Negative mg/dL [facility] Nitrite Urine Negative Negative [facility] Leukocyte Esterase Urine Small (1+)(A) Negative [facility] RBC Urine 0-2 0 - 2 /HPF [facility] Urine WBC 11-20(A) 0 - 5 /HPF [facility] Urine Squamous Epithelial Cell 3-5 0 - 2 /HPF [facility] Urine Bacteria Trace None Seen [facility] Hyaline Casts, Urine 0-2 0 - 2 /LPF [facility] Urine 04/19/2025 11:3 0 AM EDT 04/19/2025 2:12 PM EDT Narrative [facility] - 04/19/2025 2:20 PM EDT [id number], Clean Catch us Karen Rhodes MD LAB URINE ORDERABLES Final Result [facility] [address] [place] [address] [phone] * (ABNORMAL) Hepatic Function Panel (04/19/2025 10:59 AM EDT) Bilirubin, Total 0.2 0.0 - 1.0 mg/dL [facility] Bilirubin, Direct <0.2 0.0 - 0.5 mg/dL [facility] Aspartate Amino Transferase 30 5 - 31 U/L [facility] Alanine Aminotransferase 36(H) 0 - 31 U/L [facility] Total Protein 6.6 6.5 - 8.0 g/dL [facility] Albumin Level 3.7 3.5 - 5.0 g/dL [facility] Alkaline Phosphatase 132(H) 39 - 117 U/L [facility] Blood Venous blood specimen / Unknown 04/19/2025 10:59 AM EDT 04/19/2025 1:48 PM EDT us Karen Rhodes MD LAB BLOOD ORDERABLES Final Result Performing Organization Address [facility] Co de Phone Number [facility] [address] [place] [phone] * Basic Metabolic Panel (04/19/2025 10:59 AM EDT) Sodium 143 135 - 145 mmol/L [facility] Potassium 3.8 3.3 - 5.1 mmol/L [facility] Chloride 106 96 - 108 mmol/L [facility] Carbon Dioxide 29 22 - 29 mmol/L [facility] Anion Gap 12 12 - 20 [facility] Urea Nitrogen (BUN) 12 9 - 16 mg/dL [facility] Creatinine, Serum 0.73 0.5 - 1.4 mg/dL [facility] Estimated Glomerular Filt Rate >60 [facility] Comment:Chronic Kidney Disea se: Estimated GFR < 60 mL/min/1.12m9Ymyubf Kidney Disease: Estimated GFR < 15 mL/min/1.73m2 Glucose 104 60 - 115 mg/dL [facility] Calcium 9.1 8.4 - 10.2 mg/dL [facility] Blood Venous blood specimen / Unknown 04/19/2025 10:59 AM EDT 04/19/2025 1:48 PM EDT us Karen Rhodes MD LAB BLOOD ORDERABLES Final Result Performing Organization Address [facility] Co de Phone Number [facility] [address] [place] [phone] * Pap Smear (06/27/2024 12:00 AM EST) Swab Cervix uteri structure / Unknown 06/27/2024 06/29/2024 6:10 AM EST Narrative [facility] - 07/03/2024 10:39 AM EST ----- ------- Name: Jhon Celaya Age/Sex: 63/F : 1960 Unit#: [id number] Attend Dr: Jen Link MD Re06/29/24 Status: DEP REF Location: [facility] Disch: ----- ------- SPEC : [id number] RECD: 06/29/24 STATUS: TANIYA MORRISON NUM: [id number] SHASHA: 06/27/24-[address]: Jen Link MD ENTERED: 06/29/24 SP TYPE: Pap Smr OTHR DR: ORDERED: Pap Smear Interpretation Satisfactory for evaluation. Negative for intraepithelial lesion or malignancy. Obscuring inflammation. Scant cellularity. Abundant blood. HPV High Risk: Negative HPV Genotyping 16: Negative HPV Genotyping 18: Negative Clinical Information LMP: Not reported Previous PAP test: Normal Other surgery: Other history: Material Received ThinPrep- site not specified ----- ------- Signed (signature on file) MIKIE Motley (ASCP) 07/03/24 1039 ----- ------- END OF REPORT us Jen Link MD LAB CYTOLOGY ORDERABLES Final Result [facility] [address] [place] [phone] * (ABNORMAL) Lipid Panel, Standard (06/07/2024 9:56 AM EST) Triglycerides 190(H) <150 mg/dL [facility] Comment:Desirable Triglyceri de: less than 150 mg/dLBorderline High Triglyceride 150-199 mg/dLHigh Triglyceride: 200-499 mg/dLVery High Triglyceride: greater than or equal to 5OO mg/dL Cholesterol 247(H) <200 mg/dL [facility] Comment:Desirable Cholestero l: less than 200 mg/dLBorderline High Cholesterol: 200-239 mg/dLHigh Cholesterol: greater than 239 mg/dL LDL Cholesterol Calculated 156(H) <100 mg/dL [facility] Comment:Desirable LDL: less than 100 mg/dLNear Optimal/Above Optimal LDL: 110- 129 mg/dLBorderline High LDL: 130-159 mg/dLHigh LDL: 160-189 mg/dLVery High LDL: greater than or equal to 190 mg/dL HDL Cholesterol 53 >40 mg/dL [facility] Comment:Desirable HDL: great er than 40 mg/dL Note: This HDL assay may give artificially low results in patients with liver disease. Blood Venous blood specimen / Unknown 06/07/2024 9:56 AM EST 06/07/2024 2:05 PM EST us Tiffany Tristin MD LAB BLOOD ORDERABLES Final Resul t [facility] [address] [place] [address] [phone] from Last 3 Months or Most Recently Relevant to Health Maintenance Insurance MEDICARE [place] [id number] DENTAL - HSN FULL (MEDICAID) Care Teams Traffic Circuit Engineer Relationship Specialty Start Date End Date Garett Hamilton CNP [address] [place] [address] ABHINAV BOLAÑOS [address] PCP - General Family Medicine [facility]
--- OUTSIDE RECORDS SUMMARY | 2025-05-17 18:05 | XMS_ITS | Encounter Summary ---
Author Organization [employer] Address [address] [place] [address] 7 [place] [address] Care Team Providers Care Hr Leader Name Role Phone Tiffany Crow MD Primary Care Provider [phone] Garett Hamilton CNP Primary Care Provider [phone] Reason for Referral * Imaging (Routine) - Authorized Specialty Diagnoses / Procedures Referred By Contac t Referred To Contact Radiology Diagnoses Transaminitis Elevated alkaline phosphatase level Procedures US Abdomen Comp w elastography Karen Rhodes MD [address] [place] [address] Phone: tel: fax: [address] Phone: tel: fax: Referral ID Status Reason Start Date Expiration Date V isits Requested Visits Authorized [id number] Authorized 04/19/2025 04/19/2026 1 1 Encounter Details Date Type Department Care Team (Late st Contact Info) Description 04/19/2025 Orders Only [facility] [address] [place] [address] Karen Rhodes MD [address] [place], [place] [phone] Transaminitis (Primary Dx); Elevated alkaline phosphatase level Social History Tobacco Use Types Packs/Day Years [...] Author Nearly every day 04/19/2025 11:14 AM Ivonne Ellison [place] * Feeling tired or having little energy Answer Date of Assessment Author Several days 04/19/2025 11:14 AM Bret Ellison [place] * Poor appetite or overeating Answer Date of Assessment Author Not at all 04/19/2025 11:14 AM Bret Ellison [place] * Feeling bad about yourself - or that you are a failure or have let yourself or your family down Answer Date of Assessment Author Not at all 04/19/2025 11:14 AM Bret Ellison [place] * Trouble concentrating on things, such as reading the newspaper or watching television Answer Date of Assessment Author Not at all 04/19/2025 11:14 AM Bret Ellison MA * Moving or speaking so slowly [...] 04/19/2025 11:14 AM Bret Ellison MA * Patient Health Questionnaire-9 Score Answer Date of Assessment Author 4 04/19/2025 11:14 AM Bret Ellison MA * How difficult have these problems made it for you to do your work, take care of things at home, or get along with other people? Answer Date of Assessment Author Very difficult 04/19/2025 11:14 AM Bret Ellison MA documented as of this encounter Plan of Treatment Scheduled Orders Name Type Priority Associated Diagnoses Orde r Schedule US Abdomen Comp w elastography Imaging Routine Transaminitis Elevated alkaline phosphatase level Expected: 04/19/2025, Expires: 04/19/2026 Smooth Muscle Antibody with Reflex to Titer Lab Routine Transaminitis Expected: 04/19/2025 (Approximate), Expires: 04/19/2026 Immunoglobulins, Quantitative, IgA, IgG, IgM Lab Routine Transaminitis Expected: 04/19/2025 (Approximate), Expires: 04/19/2026 Ferritin Lab Routine Transaminitis Expected: 04/19/2025, Expires: 04/19/2026 Iron And Total Iron Binding Capacity Lab Routine Transaminitis Expected: 04/19/2025, Expires: 04/19/2026 Alpha 1 Antitrypsin Lab Routine Transaminitis Expected: 04/19/2025 (Approximate), Expires: 04/19/2026 documented as of this encounter Procedures Procedure Name Priority Date/Time Associated Diagnosis Comments CULTURE, URINE, ROUTINE Routine 04/19/2025 4:34 PM EDT Transaminitis documented in this encounter Results * Culture, Urine, Routine (04/19/2025 4:34 PM EDT) Urine Urine specimen obtained by clean catch procedure / Unknown 04/19/2025 4:34 PM EDT 04/19/2025 4:34 PM EDT Comment:[facility] - 04/21/2025 10:03 AM EDT Urine Culture Report Result Urine Culture 50,000 to 100,000 cfu/ml Urine Culture Mixed bacterial jorge characteristic of Urine Culture urogenital contamination. Specimen Source: Urine clean catch Karen Rhodes MD LAB MICROBIOLOGY - GENERAL ORDERABLES Final Result [facility] [address] [place] [phone] documented in this encounter Visit Diagnoses Diagnosis Transaminitis- Primary Nonspecific elevation of levels of transaminase or lactic acid dehydrogenase (LDH) Elevated alkaline phosphatase level documented in this encounter Additional Health Concerns Assessment Noted Time PHQ-9 Depression Total Score: 4 04/19/20 11:14 AM EDT documented as of this encounter Care Teams Hr Leader Relationship Specialty Start Date End Date Tiffany Crow MD [address] [place] [phone] PCP - General Family Medicine 10/19/17 05/06/25 Garett Hamilton CNP [address] [place], [place] [address], [place] [address] PCP - General Family Medicine 05/07/25 [facility] 04/18/25 documented as of this encounter
--- OUTSIDE RECORDS SUMMARY | 2025-05-17 18:05 | XMS_ITS | Encounter Summary ---
Author Organization [employer] [facility] [employer] [facility] [employer] Address [address] [facility] 7t [place] [address] Care Team Providers Care Customer Solutions Specialist Name Role Phone Tiffany Crow MD Primary Care Provider [phone] Garett Hamilton CNP Primary Care Provider [phone] Encounter Details Date Type Department Care Team (Late st Contact Info) Description 06/22/2024 Orders Only [facility] [address] [place], [place] [phone] Tiffany Crow MD [address] [place] [address] Social History Tobacco Use Types Packs/Day Years [...] on filedocumented in this encounter Care Teams Customer Solutions Specialist Relationship Specialty Start Date End Date Tiffany Crow MD [address] [place] [address] PCP - General Family Medicine 10/19/17 05/06/25 Garett Hamilton CNP [address] [place] [address] PCP - General Family Medicine 05/07/25 [facility] 04/18/25 documented as of this encounter
--- OUTSIDE RECORDS SUMMARY | 2025-05-17 18:05 | XMS_ITS | Encounter Summary ---
Author Organization [employer] Address [address] [facility] 7 [place] [address] Care Team Providers Care Access Services Representative Name Role Phone Garett Hamilton CNP Primary Care Provider [phone] Reason for Visit * Reason Onset Date Comments Med Refill 05/17/2025 Encounter Details Date Type Department Care Team ([facility] st Contact Info) Description 05/17/2025 Telephone [facility] [address] [place] [address] Garett Hamilton CNP [address] [place] [address] Med Refill Social History Tobacco Use Types Packs/Day Years [...] encounter Miscellaneous Notes * Telephone Encounter - Stiven Barker - 05/17/2025 11:15 AM EST TC from pt requesting medication refill. Medications needing refill : pantoprazole (ProtoNix) 40 MG EC tablet furosemide (Lasix) 40 MG tablet To be sent to: [facility] [place], [place] - [facility] documented in this encounter Plan of Treatment Not on file documented as of this encounter Visit Diagnoses Not on filedocumented in this encounter Additional Health Concerns Assessment Noted Time PHQ-9 Depression Total Score: 4 04/19/20 11:14 AM EDT documented as of this encounter Care Teams Access Services Representative Relationship Specialty Start Date End Date Garett Hamilton CNP [address] [place] [address] PCP - General Family Medicine 05/07/25 [facility] 04/18/25 documented as of this encounter
--- OUTSIDE RECORDS SUMMARY | 2025-05-17 18:05 | XMS_ITS | Encounter Summary ---
Author Organization [employer] Address [address] [facility] 7t [place] [address] Care Team Providers Care Service Order Dispatcher Name Role Phone Garett Hamilton CNP Primary Care Provider [phone] Reason for Visit * Reason Onset Date Comments Call Back Request 05/16/2025 Encounter Details Date Type Department Care Team (Late st Contact Info) Description 05/16/2025 Telephone [facility] [address] [place], [place] [phone] Garett Hamilton CNP [address] [facility] [address] [place], [place] [phone] Call Back Request Social History Tobacco Use Types Packs/Day Years [...] encounter Miscellaneous Notes * Telephone Encounter - Mahogany Ashby - 05/16/2025 2:26 PM EST Tc from Ariane with [facility] requesting a call back for med reconciliation. Ariane stated will be faxing form with details. Ariane want meds to be sent to [facility]. To contact Ariane at [phone] PCP EDITORIAL INTERN Alfonso documented in this encounter Plan of Treatment Not on file documented as of this encounter Visit Diagnoses Not on filedocumented in this encounter Additional Health Concerns Assessment Noted Time PHQ-9 Depression Total Score: 4 04/19/20 11:14 AM EDT documented as of this encounter Care Teams Service Order Dispatcher Relationship Specialty Start Date End Date Garett Hamilton CNP [address] [place] [phone] PCP - General Family Medicine 05/07/25 [facility] 04/18/25 documented as of this encounter
--- OUTSIDE RECORDS SUMMARY | 2025-05-17 18:05 | XMS_ITS | Encounter Summary ---
Author Organization [employer] Address [address] [facility] 7t [place] [address] Care Team Providers Care Appraisal Specialist Name Role Phone Tiffany Crow MD Primary Care Provider [phone] Garett Hamilton CNP Primary Care Provider [phone] Reason for Visit * Reason Onset Date Comments Referral 07/08/2023 Encounter Details Date Type Department Care Team ([facility] st Contact Info) Description 07/08/2023 Telephone [facility] [address] [place] [address] Tiffany Crow MD [address] [place] [address] Referral Social History Tobacco Use Types Packs/Day [...] to Candelaria to get more information as [facility] neurology has multiple providers that can see patient. Candelaria stated she will call [facility] and gather more information and call us if she requires anything else. * Telephone Encounter - Maco Mullen - 07/08/2023 10:08 AM EST Tc from Candelaria, nurse at [facility], regarding a referral. Location: [facility] Date: N/A Time: N/A Fax: N/A Specialty: Neurology New referral needed due to Doctor taking extended time off. Please contact Candelaria at [phone]. documented in this encounter Plan of Treatment Not on file documented as of this encounter Visit Diagnoses Not on filedocumented in this encounter Care Teams Appraisal Specialist Relationship Specialty Start Date End Date Tiffany Crow MD [address] [place] [address] PCP - General Family Medicine 10/19/17 05/06/25 Garett Hamilton CNP [address] [place] [address] PCP - General Family Medicine [facility]07/[facility] documented as of this encounter
== END ==
LOC: HO.CARD 14:50
PROVIDERS: PCP Internal Medicine; Visit Provider Internal Medicine
DX: I26.99 Other pulmonary embolism without acute cor pulmonale (principal); M79.89 Other specified soft tissue disorders
CPT/HCPCS: 93306; Q9957

== ENCOUNTER → 2025-05-17 15:00 | Outpatient (BNV) | payer MEDICARE, MEDICAID, SELFPAY | PROVIDERS: PCP Internal Medicine; Visit Provider Internal Medicine Cardiovascular Disease | DX: I26.99 Other pulmonary embolism without acute cor pulmonale (principal) | CPT/HCPCS: 93306 ==

== ENCOUNTER 2025-06-08 03:26 | Emergency (ER) | payer MEDICARE, MEDICAID, SELFPAY ==
[2025-06-08 03:31] VITALS: BP 160/110; PULSE 100; RESP 18; TEMP 36; O2SAT 97; O2SAT 98; BMI 28.7
--- NOTE | 2025-06-08 03:41 | ED.GENADULT ---
HPI - General Adult General Chief complaint: General Medical Stated complaint: POSSIBLE HYPOTHERMIA Time Seen by Provider: 06/08/25 03:33 Source: patient and EMS Mode of arrival: EMS Limitations: no limitations History of Present Illness ED Provider: Dr. Luz Woods HPI narrative: Patient comes to the emergency room via ambulance. According to EMS, the patient was in her correction, then went out for a walk. The correction could not find her and called EMS. The patient was found walking with her jacket around the streets. Patient states that she feels very cold but is unharmed and did not want to come to the hospital. However, PD and EMS insisted bringing her to the hospital. Patient has no complaints other than feeling cold. Related Data Previous Rx's ?Medication ?Instructions ?Recorded acetaminophen 325 mg tablet 650 mg (2 x 325 mg) PO Q6H PRN 04/06/22 Headache/Pain Mild Scale (1-3) #90 tabs benztropine 1 mg tablet 1 mg PO BID #60 tabs 04/06/22 divalproex 250 mg tablet,extended 1,250 mg (5 x 250 mg) PO BEDTIME 04/06/22 release 24 hr #150 tabs ibuprofen 600 mg tablet 600 mg PO Q8H PRN knee pain #60 04/06/22 tabs olanzapine 10 mg disintegrating 10 mg translingual Q8H PRN 04/06/22 tablet psychotic agitation #30 tabs olanzapine 10 mg intramuscular 15 mg IM BID PRN if pt refuses po 04/06/22 solution christa-alessia #5 ea olanzapine 7.5 mg tablet 15 mg (2 x 7.5 mg) PO BID #120 tabs 04/06/22 sertraline 50 mg tablet 50 mg PO BEDTIME #30 tabs 04/06/22 trazodone 50 mg tablet 50 mg PO BEDTIME PRN Insomnia #3 04/06/22 tabs cephalexin 500 mg capsule 500 mg PO Q12H #14 caps 02/19/23 Allergies Allergy/AdvReac Type Severity Reaction Status Date / Time haloperidol (From Haldol) AdvReac Mild AGITATION Verified 06/08/25 03:50 propranolol AdvReac irregular Verified 06/08/25 03:50 heartbeat Review of Systems Review of Systems: Constitutional : No Weight loss, No Fever, No Chills, No Night Sweats, No Fatigue, No Malaise complaining of feeling cold, temperature outside is currently in the single digits in Farenheit ENT/Mouth : No Hearing loss, No Ear Pain, No Nasal Congestion, No Sinus Pain, No Hoarseness, No sore throat, No Rhinorrhea, No Swallowing Difficulty Eyes: No Eye Pain, No Swelling, No Redness, No Foreign Body, No Discharge, No Vision Changes Cardiovascular : No Chest Pain, No SOB, No Dyspnea on Exertion, No Orthopnea, No Edema, No Palpitations Respiratory : No Cough, No Sputum, No Wheezing, No Smoke Exposure, No Dyspnea Gastrointestinal : No Nausea, No Vomiting, No Diarrhea, No Constipation, No abdominal Pain, No Hematochezia, No Melena Genitourinary : no irregular bleeding, No Dysuria, No Urinary Frequency, No Hematuria, No Urinary Incontinence, No Urgency, No Flank Pain, No Urinary Flow Changes, No Hesitancy Musculoskeletal : No joint pain, No Myalgias, No Joint Swelling Skin : No Skin Lesions, No rash Neuro : No Weakness, No Numbness, No Paresthesias, No Loss of Consciousness, No Dizziness, No Headache Psych : No Anxiety/Panic, No Depression, No SI/HI/AH/VH, No Social Issues, Heme/Lymph: No Bruising, No Bleeding,No Lymphadenopathy Endocrine : No Polyuria, No Polydipsia, No Temperature Intolerance [facility] Past Medical History Medical History Schizoaffective disorder Social History Social History Household Members: None Housing: Apartment Do you presently have visiting nurse or other home services: No Alcohol intake: never Comment: no additional interventions implemented. pt ambulating with steady gait Patient Tobacco Use Status: Tobacco use Unknown Advance Directives: No Advance Directives Information Provided: No Do you have a plan to hurt others: No Plan service: No Sexual orientation: Did not discuss Physical Exam ED Exam Exam: Appearance: Alert. Oriented X3. No acute distress. Eyes: Pupils equal, round and reactive to light. ENT: Pharynx normal. Neck: Normal inspection. Neck supple. No lymph nodes noted. No crepitus CVS: Normal heart rate and rhythm. Pulses normal. Normal S1 and S2 Respiratory: No respiratory distress. Breath sounds normal. No Wheezing. No rales Abdomen: Soft and nontender. No rigidity. No distention. Skin: Skin dry and very cold to touch Normal skin color. Normal skin turgor. Extremities: No lower extremity edema. No Lacerations. No Rash Neuro: Oriented X 3. No motor deficit. No sensory deficit. Moving all extremities. No slurred speech. CN 2 through 12 grossly intact Psych: calm, cooperative, normal affect Vital Signs: Vital Signs - 24 hr 06/08/25 03:31 Temperature 96.8 F Pulse Rate 100 Respiratory Rate 18 Blood Pressure 160/110 H Pulse Oximetry 98 Oxygen Delivery Method Room Air BMI result Body Mass Index 28.7 Course Course Course Narrative: Patient's vitals are stable, rectal temperature 96 degrees F. Patient has been warmed up with blankets and Mal Hugger Patient declined any lab work and refused EKG Medical Decision Making Medical Decision Making MDM Narrative: Patient was warmed up with a Mal Hugger. Patient still refusing labs EKG. States that she feels well. Denies SI or HI. Discharge Plan Discharge Clinical Impression: Hypothermia Patient Disposition: Home, Self-Care Instructions: Acute Hypothermia (ED) Additional Instructions: Please follow-up with your primary care physician tomorrow. If you have any worsening or new symptoms, please return to the emergency room or call 911 Prescriptions: No Action acetaminophen 325 mg Tablet 650 mg PO Q6H PRN (Reason: Headache/Pain Mild Scale (1-3)) Qty: 90 0RF olanzapine 7.5 mg Tablet 15 mg PO BID Qty: 120 0RF benztropine 1 mg Tablet 1 mg PO BID Qty: 60 0RF trazodone 50 mg Tablet 50 mg PO BEDTIME PRN (Reason: Insomnia) Qty: 3 0RF olanzapine 10 mg Tablet,Disintegrating 10 mg translingual Q8H PRN (Reason: psychotic agitation) Qty: 30 0RF ibuprofen 600 mg Tablet 600 mg PO Q8H PRN (Reason: knee pain) Qty: 60 0RF sertraline 50 mg Tablet 50 mg PO BEDTIME Qty: 30 0RF divalproex 250 mg Tablet Extended Release 24 Hr 1,250 mg PO BEDTIME Qty: 150 0RF olanzapine 10 mg Recon Soln 15 mg IM BID PRN (Reason: if pt refuses po zypjaret) Qty: 5 0RF cephalexin 500 mg capsule 500 mg PO Q12H Qty: 14 0RF Print Language: Yoruba
--- NOTE | 2025-06-08 03:51 | MHC.EDTECH ---
Pt placed on a martha hugger. pt refusing all other treatment at this time RN and provider aware
--- NOTE | 2025-06-08 04:06 | PC.NURSE ---
Assumed care of pt, Pt was found outside by PD, per EMS pt was at her assisted, per staff pt had been missing for several hours after=
--- NOTE | 2025-06-08 04:11 | PC.NURSE ---
Assumed care of pt, Pt was found outside by PD, per EMS pt was at her half-way, per staff pt had been missing for several hours after receiving night medication, Hx of Dementia, Pt is very cold to the touch, placed on martha-hugger for warmth, pt is aaox3, denies any pain, pt states she was waiting for the finger-printing place to open, pt is disoriented to her situation, currently pt is following directions
--- OUTSIDE RECORDS SUMMARY | 2025-06-08 04:22 | XMS_ITS | Encounter Summary ---
Author Organization [email or web address] Address [address] [facility] 7t [place] [address] Care Team Providers Care Fluid Jet Cutter Operator Name Role Phone Tiffany Crow MD Primary Care Provider [phone] Garett Hamilton CNP Primary Care Provider [phone] Reason for Visit * Reason Onset Date Comments Results 04/20/2025 Encounter Details Date Type Department Care Team ([facility] st Contact Info) Description 04/20/2025 Results Follow-Up [facility] CH[facility] MED & PEDS [address] [place] [address] Viviane Casas RN Basic Metabolic Panel, Hepatic [...] documented as of this encounter Care Teams Fluid Jet Cutter Operator Relationship Specialty Start Date End Date Tiffany Crow MD [address] [place] [address] PCP - General Family Medicine 10/19/17 05/06/25 Garett Hamilton CNP [address] [place] [address] PCP - General Family Medicine 05/07/25 Jelani [facility] 04/18/25 documented as of this encounter
--- OUTSIDE RECORDS SUMMARY | 2025-06-08 04:22 | XMS_ITS | Encounter Summary ---
Author Organization [employer] Address [address] [facility] 7t [place] [address] Care Team Providers Care Motor Carrier Inspector Name Role Phone Garett Hamilton CNP Primary Care Provider [phone] Reason for Visit * Reason Onset Date Comments Call Back Request 05/16/2025 Encounter Details Date Type Department Care Team (Late st Contact Info) Description 05/16/2025 Telephone [facility] MED[facility]INE [address] [place], [place] [phone] Garett Hamilton CNP [address] [facility] [address] [place], [place] [phone] Call Back Request Social History Tobacco Use [...] 2:26 PM EST Tc from Ariane with [facility] requesting a call back for med reconciliation. Ariane stated will be faxing form with details. Ariane want meds to be sent to [facility] pharmacy. To contact Ariane at [phone] PCP CAPSULE FILLING MACHINE OPERATOR Alfonso documented in this encounter Plan of Treatment Not on file documented as of this encounter Visit Diagnoses Not on filedocumented in this encounter Additional Health Concerns Assessment Noted Time PHQ-9 Depression Total Score: 4 04/19/20 11:14 AM EDT documented as of this encounter Care Teams Motor Carrier Inspector Relationship Specialty Start Date End Date Garett Hamilton CNP [address] [place] [address] PCP - General Family Medicine 05/07/25 Jelani [facility] 04/18/25 documented as of this encounter
--- OUTSIDE RECORDS SUMMARY | 2025-06-08 04:22 | XMS_ITS | Encounter Summary ---
Author Organization [employer] Address [address] [facility] 7t [place] [address] Care Team Providers Care Lead Refiner Name Role Phone Tiffany Crow MD Primary Care Provider [phone] Garett Hamilton CNP Primary Care Provider [phone] Reason for Visit * Reason Onset Date Comments Referral 07/08/2023 Encounter Details Date Type Department Care Team ([facility] st Contact Info) Description 07/08/2023 Telephone [facility] CHC MED & PEDS [address] [place] [address] Tiffany Crow MD [address] [place] [address] Referral Social History Tobacco Use Types Packs/Day [...] to Candelaria to get more information as [facility] neurology has multiple providers that can see patient. Candelaria stated she will call [facility] and gather more information and call us if she requires anything else. * Telephone Encounter - Maco Mullen - 07/08/2023 10:08 AM EST Tc from Candelaria, nurse at [facility], regarding a referral. Location: [facility] Date: N/A Time: N/A Fax: N/A Specialty: Neurology New referral needed due to Doctor taking extended time off. Please contact Candelaria at [phone]. documented in this encounter Plan of Treatment Not on file documented as of this encounter Visit Diagnoses Not on filedocumented in this encounter Care Teams Lead Refiner Relationship Specialty Start Date End Date Tiffany Crow MD [address] [place] [address] PCP - General Family Medicine 10/19/17 05/06/25 Garett Hmailton CNP [address] [place] [address] PCP - General Family Medicine 05/07/25 [facility] 04/18/25 documented as of this encounter
--- OUTSIDE RECORDS SUMMARY | 2025-06-08 04:22 | XMS_ITS | Encounter Summary ---
Author Organization [employer] Address [address] [facility] 7t [place] [address] Care Team Providers Care Supervisor Concrete Stone Finishing Name Role Phone Garett Hamilton TECHNICIAN SUBMARINE CABLE EQUIPMENT Primary Care Provider [phone] Reason for Visit * Reason Comments Med Refill Encounter Details Date Type Department Care Team ([facility] Contact Info) Description 06/05/2025 Refill [facility] CH[facility] MED & PEDS [address] [place] [address] Karen Rhodes MD [address] [place] [address] Social History Tobacco Use Types Packs/Day Years [...] documented as of this encounter Care Teams Supervisor Concrete Stone Finishing Relationship Specialty Start Date End Date Garett Hamilton CNP [address] [place] [address] PCP - General Family Medicine 05/07/25 Jelani [facility] 04/18/25 documented as of this encounter
--- OUTSIDE RECORDS SUMMARY | 2025-06-08 04:22 | XMS_ITS | Encounter Summary ---
Author Organization [employer] Address [address] [facility] 7t [place] [address] Care Team Providers Care Planing Machine Operator Name Role Phone Tiffany Crow MD Primary Care Provider [phone] Garett Hamilton CNP Primary Care Provider [phone] Encounter Details Date Type Department Care Team (Late st Contact Info) Description 06/22/2024 Orders Only [facility] CHC MED & PEDS [address] [place], [place] [phone] Tiffany Crow MD [address] [place] [address] Social History Tobacco Use Types Packs/Day Years [...] on filedocumented in this encounter Care Teams Planing Machine Operator Relationship Specialty Start Date End Date Tiffany Crow MD [address] [place] [address] PCP - General Family Medicine 10/19/17 05/06/25 Garett Hamilton CNP [address] [place] [address] PCP - General Family Medicine 05/07/25 Jelani [facility] 04/18/25 documented as of this encounter
--- OUTSIDE RECORDS SUMMARY | 2025-06-08 04:22 | XMS_ITS | Encounter Summary ---
Author Organization [employer] Address [address] [place] [address] 7 [place] [address] Care Team Providers Care Technical Services Librarian Name Role Phone Tiffany Crow MD Primary Care Provider [phone] Garett Hamilton CNP Primary Care Provider [phone] Reason for Referral * Imaging (Routine) - Authorized Specialty Diagnoses / Procedures Referred By Contac t Referred To Contact Radiology Diagnoses Transaminitis Elevated alkaline phosphatase level Procedures US Abdomen Comp w elastography Karen Rhodes MD [address] [place] [address] Phone: tel: fax: [address] [address] Phone: tel: fax: Referral ID Status Reason Start Date Expiration Date V isits Requested Visits Authorized [id number] Authorized 04/19/2025 04/19/2026 1 1 Encounter Details Date Type Department Care Team (Late st Contact Info) Description 04/19/2025 Orders Only [facility] CHC MED & PEDS [address] [place] [address] Karen Rhodes MD [address] [place] [address] [phone] Transaminitis (Primary Dx); Elevated alkaline phosphatase level [...] 4:34 PM EDT 04/19/2025 4:34 PM EDT Comment:[facility] - 04/21/2025 10:03 AM EDT Urine Culture Report Result Urine Culture 50,000 to 100,000 cfu/ml Urine Culture Mixed bacterial jorge characteristic of Urine Culture urogenital contamination. Specimen Source: Urine clean catch Karen Rhodes MD LAB MICROBIOLOGY - GENERAL ORDERABLES Final Result [facility] [address] [place] [address] [phone] documented in this encounter Visit Diagnoses Diagnosis Transaminitis- Primary Nonspecific elevation of levels of transaminase or lactic acid dehydrogenase (LDH) Elevated alkaline phosphatase level documented in this encounter Additional Health Concerns Assessment Noted Time PHQ-9 Depression Total Score: 4 04/19/20 11:14 AM EDT documented as of this encounter Care Teams Technical Services Librarian Relationship Specialty Start Date End Date Tiffany Crow MD [address] [place] [address] PCP - General Family Medicine 10/19/17 05/06/25 Garett Hamilton CNP [address] [place] [address] PCP - General Family Medicine 05/07/25 Jelani [facility] 04/18/25 documented as of this encounter
--- OUTSIDE RECORDS SUMMARY | 2025-06-08 04:22 | XMS_ITS | Clinical Summary ---
Author Organization [email or web address] Address [address] [facility] 7t [place] [address] Care Team Providers Care Oracle Etl Developer Name Role Phone Garett Hamilton PHYSICIAN OFFICE ASSISTANT Primary Care Provider [phone] Allergies Active Allergy Reactions Criticality Noted Date [...] mouth 2 times daily. 04/14/20 25 Active pantoprazole (ProtoNix) 40 MG EC tablet TAKE 1 TABLET BY MOUTH EVERY DAY 30 tablet 06/05/20 25 Active furosemide (Lasix) 40 MG tablet TAKE 1 TABLET BY MOUTH EVERY DAY 30 tablet 06/05/20 25 Active Eliquis 5 MG tablet TAKE 1 TABLET BY MOUTH TWICE A DAY 60 tablet 06/05/20 25 Active Eliquis 5 MG tablet Take [...] order (will not trigger notification to Pharmacy)) apixaban (Eliquis) 5 MG tablet TAKE 1 TABLET BY MOUTH TWICE A DAY 60 tablet 05/17/20 025 Discontinued furosemide (Lasix) 40 MG tablet TAKE 1 TABLET BY MOUTH EVERY DAY 30 tablet 05/17/20 025 Discontinued pantoprazole (ProtoNix) 40 MG EC tablet TAKE 1 TABLET BY MOUTH EVERY DAY 30 tablet 05/17/20 025 Discontinued Active Problems Problem Noted Date Diagnosed Date Pulmonary embolism 04/19/2025 Cervical cancer screening 06/27/2024 Assessment & Plan (06/27/2024 11:36 AM EST): 63 y.o. here for cervical cancer screening. Will continue monitoring following ASCCP guidelines. Memory deficits 06/08/2022 Obesity 02/14/2013 Schizoaffective disorder (CMS/HCC) 05/30/2012 Tremor 05/30/2012 Encounters Date Type Department Care Team Description 06/05/2025 Refill [facility] [address] [place] [address] Karen Rhodes MD 06/04/2025 Refill [facility] [address] [place] [address] Karen Rhodes MD 05/28/2025 Telephone [facility] [address] [place] [address] Garett Hamilton CNP Appointment 05/22/2025 Refill [facility] [address] [place] [address] Karen Rhodes MD 05/17/2025 Telephone [facility] [address] [place] [address] Garett Hamilton CNP Med Refill 05/17/2025 Refill [facility] [address] [place] [address] Garett Hamilton CNP 05/16/2025 Telephone [facility] [address] [place] [address] aGrett Hamilton CNP Call Back Request 04/23/2025 Results Follow-Up [facility] [address] [place] [address] Karen Rhodes MD Culture, Urine, Routine 04/20/2025 Results Follow-Up [facility] [address] [place] [address] Viviane Casas RN Basic Metabolic Panel, Hepatic Function Panel, Urinalysis, Complete, with Reflex to Culture 04/19/2025 10:00 AM EDT Office Visit [facility] [address] [place] [address] Karen Rhodes MD Schizoaffective disorder, unspecified type (HCC) (Primary Dx); Single subsegmental pulmonary embolism without acute cor pulmonale (CMS/HCC) (HCC); Swelling of lower limb; Encounter for screening mammogram for malignant neoplasm of breast; Other acute pulmonary embolism without acute cor pulmonale (HCC); Screening for colon cancer 04/19/2025 Orders Only [facility] [address] [place] [address] Karen Rhodes MD Transaminitis (Primary Dx); Elevated alkaline phosphatase level 04/19/2025 Travel 04/18/2025 Telephone [facility] [address] [place] [address] Tiffany Crow MD Chart Prep 04/16/2025 Telephone [facility] [address] [place] [address] Tiffany Crow MD verbal order from Last [...] Dental X-Ray: [facility] 10/20/2025 10/20/19 25, 10/29/2017 COVID-19 Vaccine (1 - 2024-2 6 season) [...] Cancer Screening Discontinued Pap Smear Discontinued 06/27/2024 Influenza Vaccine Completed 05/31/2025 HIB Vaccines Aged Out No longer eligi [...] 4:34 PM EDT 04/19/2025 4:34 PM EDT Comment:UACC Narrative [facility] - 04/21/2025 10:03 AM EDT Urine Culture Report Result Urine Culture 50,000 to 100,000 cfu/ml Urine Culture Mixed bacterial jorge characteristic of Urine Culture urogenital contamination. Specimen Source: Urine clean catch Karen Rhodes MD LAB MICROBIOLOGY - GENERAL ORDERABLES Final Result [facility] [address] [place] [address] [phone] * (ABNORMAL) Urinalysis, Complete, with Reflex to Culture (04/19/2025 11:30 AM EDT) Color Urine Yellow [facility] Appearance Urine Clear [facility] PH 5.5 5.0 - 9.0 [facility] Glucose Urine UA Negative Negative mg/dL [facility] Urine Blood Negative Negative [facility] Specific [place] - Urine 1.010 1.005 - 1.025 [facility] Urine Protein Negative Neg-Trace mg/dL [facility] Urine Ketones Negative Negative mg/dL [facility] Nitrite Urine Negative Negative [facility] Leukocyte Esterase Urine Small (1+)(A) Negative [facility] RBC Urine 0-2 0 - 2 /HPF [facility] Urine WBC 11-20(A) 0 - 5 /HPF [facility] Urine Squamous Epithelial Cell 3-5 0 - 2 /HPF [facility] Urine Bacteria Trace None Seen [facility] Hyaline Casts, Urine 0-2 0 - 2 /LPF [facility] Urine 04/19/2025 11:3 0 AM EDT 04/19/2025 2:12 PM EDT Narrative [facility] - 04/19/2025 2:20 PM EDT [id number], Clean Catch us Karen Rhodes MD LAB URINE ORDERABLES Final Result Performing Organization Address [facility]/ZIP Co de Phone Number [facility] [address] [place] [address] [phone] * (ABNORMAL) Hepatic Function Panel (04/19/2025 10:59 AM EDT) Bilirubin, Total 0.2 0.0 - 1.0 mg/dL [facility] Bilirubin, Direct <0.2 0.0 - 0.5 mg/dL [facility] Aspartate Amino Transferase 30 5 - 31 U/L [facility] Alanine Aminotransferase 36(H) 0 - 31 U/L [facility] Total Protein 6.6 6.5 - 8.0 g/dL [facility] Albumin Level 3.7 3.5 - 5.0 g/dL [facility] Alkaline Phosphatase 132(H) 39 - 117 U/L [facility] Blood Venous blood specimen / Unknown 04/19/2025 10:59 AM EDT 04/19/2025 1:48 PM EDT Karen Rhodes MD LAB BLOOD ORDERABLES Final Result Performing Organization Address [facility] Co de Phone Number [facility] [address] [place] [phone] * Basic Metabolic Panel (04/19/2025 10:59 AM EDT) Pathologist [facility] Sodium 143 135 - 145 mmol/L [facility] Potassium 3.8 3.3 - 5.1 mmol/L [facility] Chloride 106 96 - 108 mmol/L [facility] Carbon Dioxide 29 22 - 29 mmol/L [facility] Anion Gap 12 12 - 20 [facility] Urea Nitrogen (BUN) 12 9 - 16 mg/dL [facility] Creatinine, Serum 0.73 0.5 - 1.4 mg/dL [facility] Estimated Glomerular Filt Rate >60 [facility] Comment:Chronic Kidney Disea se: Estimated GFR < 60 mL/min/1.41b2Fmnizv Kidney Disease: Estimated GFR < 15 mL/min/1.73m2 Glucose 104 60 - 115 mg/dL [facility] Calcium 9.1 8.4 - 10.2 mg/dL [facility] Blood Venous blood specimen / Unknown 04/19/2025 10:59 AM EDT 04/19/2025 1:48 PM EDT us Karen Rhodes MD LAB BLOOD ORDERABLES Final Result [facility] [address] [place] [address] [phone] * Pap Smear (06/27/2024 12:00 AM EST) Swab Cervix uteri structure / Unknown 06/27/2024 06/29/2024 6:10 AM EST Narrative [facility] - 07/03/2024 10:39 AM EST ----- ------- Name: Jhon Celaya Age/Sex: 63/F : 1960 Unit#: [id number] Attend Dr: Jen Link MD Re06/29/24 Status: DEP REF Location: HO.LNP Disch: ----- ------- SPEC : [id number] RECD: 06/29/24 STATUS: TANIYA MORRISON NUM: [id number] SHASHA: 06/27/240000 SUBM DR: Jen Link MD [...] Link MD LAB CYTOLOGY ORDERABLES Final Result [facility] [address] [place] [address] [phone] * (ABNORMAL) Lipid Panel, Standard (06/07/2024 9:56 AM EST) Triglycerides 190(H) <150 mg/dL [facility] Comment:Desirable Triglyceri de: less than 150 mg/dLBorderline High Triglyceride 150-199 mg/dLHigh Triglyceride: 200-499 mg/dLVery High Triglyceride: greater than or equal to 5OO mg/dL Cholesterol 247(H) <200 mg/dL [facility] Comment:Desirable Cholestero l: less than 200 mg/dLBorderline High Cholesterol: 200-239 mg/dLHigh Cholesterol: greater than 239 mg/dL LDL Cholesterol Calculated 156(H) <100 mg/dL [facility] Comment:Desirable LDL: less than 100 mg/dLNear Optimal/Above Optimal LDL: 110- 129 mg/dLBorderline High LDL: 130-159 mg/dLHigh LDL: 160-189 mg/dLVery High LDL: greater than or equal to 190 mg/dL HDL Cholesterol 53 >40 mg/dL [facility] Comment:Desirable HDL: great er than 40 mg/dL Note: This HDL assay may give artificially low results in patients with liver disease. Blood Venous blood specimen / Unknown 06/07/2024 9:56 AM EST 06/07/2024 2:05 PM EST us Tiffany Crow MD LAB BLOOD ORDERABLES Final Resul t [facility] [address] [place] [address] [phone] from Last 3 Months or Most Recently Relevant to Health Maintenance [place] [address] MEDICARE Member Subscriber Plan / Payer (Ef fective 2024-Present) Name:Jhon Celaya Member ID:[id number] Relation to Subscriber:Self Name:Jhon Celaya Subscriber ID:[id number] Payer ID:STATE Group ID:Not on file Type:Medicare Address: [facility] [address] [place] [address] [place] [address] DENTAL - HSN FULL (MEDICAID) Care Teams Oracle Etl Developer Relationship Specialty Start Date End Date Garett Hamilton CNP [address] [place] [address] ABHINAV BOLAÑOS [address] PCP - General Family Medicine 05/07/25 [facility] 04/18/25
--- OUTSIDE RECORDS SUMMARY | 2025-06-08 04:22 | XMS_ITS | Encounter Summary ---
Author Organization [employer] Address [address] [facility] 7 [place] [address] Care Team Providers Care Back Facer Name Role Phone Garett Hamilton CNP Primary Care Provider [phone] Reason for Visit * Reason Onset Date Comments Med Refill 05/17/2025 Encounter Details Date Type Department Care Team ([facility] st Contact Info) Description 05/17/2025 Telephone [facility] [address] [place] [address] Garett Hamilton CNP [address] [place] [address] Med Refill Social History Tobacco Use Types [...] 40 MG tablet To be sent to: [facility] [place], [place] - [facility] Main documented in this encounter Plan of Treatment Not on file documented as of this encounter Visit Diagnoses Not on filedocumented in this encounter Additional Health Concerns Assessment Noted Time PHQ-9 Depression Total Score: 4 04/19/20 11:14 AM EDT documented as of this encounter Care Teams Back Facer Relationship Specialty Start Date End Date Garett Hamilton CNP [address] [place] [address] PCP - General Family Medicine 05/07/25 [facility] 04/18/25 documented as of this encounter
--- OUTSIDE RECORDS SUMMARY | 2025-06-08 04:22 | XMS_ITS | Encounter Summary ---
Author Organization [employer] Address [address] [facility] 7t [place] [address] Care Team Providers Care Bucket Hooker Name Role Phone Tiffany Crow MD Primary Care Provider [phone] Garett Hamilton CNP Primary Care Provider [phone] Reason for Visit * Reason Onset Date Comments Medication Question 06/20/2024 Encounter Details Date Type Department Care Team ([facility] st Contact Info) Description 06/20/2024 Telephone [facility] [address] [place], [place] [phone] Tiffany Crow MD [address] [place], [place] [phone] Medication Question Social History Tobacco Use Types [...] that all prescriptions should be sent to [facility]. This has been added to the [...] on filedocumented in this encounter Care Teams Bucket Hooker Relationship Specialty Start Date End Date Tiffany Crow MD [address] [place] [phone] PCP - General Family Medicine 10/19/17 05/06/25 Garett Hamilton CNP [address] [place] [address] PCP - General Family Medicine 05/07/25 [facility] 04/18/25 documented as of this encounter
--- OUTSIDE RECORDS SUMMARY | 2025-06-08 04:22 | XMS_ITS | Encounter Summary ---
Author Organization [employer] Address 75 [facility] 7t [place] [address] Care Team Providers Care Incident Commander Name Role Phone Garett Hamilton AIRFIELD OPERATIONS SPECIALIST Primary Care Provider [phone] Reason for Visit * Reason Comments Med Refill Encounter Details Date Type Department Care Team ([facility] Contact Info) Description 06/04/2025 Refill [facility] [address] [place] [address] Karen Rhodes MD [address] [place] [address] Social History Tobacco Use Types Packs/Day Years [...] documented as of this encounter Care Teams Incident Commander Relationship Specialty Start Date End Date Garett Hamilton CNP [address] [place] [phone] PCP - General Family Medicine 05/07/25 [facility] 04/18/25 documented as of this encounter
--- OUTSIDE RECORDS SUMMARY | 2025-06-08 04:22 | XMS_ITS | Encounter Summary ---
Author Organization [employer] Address 75 [facility] 7t [place] [address] Care Team Providers Care Silo Man Name Role Phone Garett Hamilton INSPECTOR RAW QUARTZ Primary Care Provider [phone] Reason for Visit * Reason Comments Med Refill Encounter Details Date Type Department Care Team ([facility] Contact Info) Description 05/22/2025 Refill [facility] [address] [place] [address] Karen Rhodes MD [address] [place] [address] Social History Tobacco Use Types Packs/Day Years [...] documented as of this encounter Care Teams Silo Man Relationship Specialty Start Date End Date Garett Hamilton CNP [address] [place] [phone] PCP - General Family Medicine 05/07/25 [facility] 04/18/25 documented as of this encounter
[2025-06-08 05:02] VITALS: BP 147/87; PULSE 89; RESP 22; TEMP 36.6; O2SAT 95
[2025-06-08 06:46] VITALS: BP 147/87; PULSE 89; RESP 22; TEMP 36.6; O2SAT 95
== END 2025-06-08 06:48 | disposition home or self-care (01) ==
PROVIDERS: Emergency Provider Emergency Medicine
DX: T68.XXXA Hypothermia, initial encounter (principal)
CPT/HCPCS: 99284

== ENCOUNTER 2025-06-08 16:34 | Inpatient (IN) | payer MEDICARE, MEDICAID, SELFPAY ==
--- NOTE | ~2025-06-08 | XR_ITS ---
CLINICAL HISTORY: septic work up 1 view chest x-ray Comparison: None provided Findings: The lungs are clear, With the exception of minimal atelectasis at the right lung base Asymmetric elevation of the right hemidiaphragm. Normal size heart. No acute fracture. IMPRESSION: 1. No acute findings. This document has been electronically signed by: Tobin Javed MD on 06/10/2025 16:12:38
--- NOTE | ~2025-06-08 | CT_ITS ---
CLINICAL HISTORY: fever, diarrhea CT abdomen and pelvis with contrast Comparison: None provided Findings: Minimal atelectasis at the right lung base. Heart size is normal. Diffuse fatty atrophy of the pancreas. Spleen, adrenal glands, kidneys, liver and gallbladder are normal. No bowel obstruction, pneumoperitoneum, or pneumatosis. Normal appendix in the mid right abdomen. Moderate fecal loading in the colon. No bowel wall thickening. Uterus and adnexa are unremarkable. No ascites. Mild degenerative changes of the lumbar spine. IMPRESSION: No acute findings. Diffuse fatty atrophy of the pancreas. This document has been electronically signed by: Tobin Javed MD on 06/10/2025 16:19:48
[2025-06-08 16:53] VITALS: BP 152/81; PULSE 112; RESP 18; TEMP 36.2; O2SAT 91; BMI 24.9
--- NOTE | 2025-06-08 17:40 | PC.NURSE ---
pt was initially brought into ED yip bed 10 via ems section 12, the pt was cooporated with staff out in the main ED during the triage, it was then decided to bring the patient back to the pod, when RN called for information security systems instructor and attempting to get the patient to ambulate the pt refused, nursing staff and security brought the patient to the POD on a stretcher. Pt presently sitting in pod chair- refusing to do changeover with RN. Provider was notified of the patients current refusal.
--- NOTE | 2025-06-08 18:24 | ED.GENADULT ---
HPI - General Adult General Chief complaint: Psychiatric Symptoms Stated complaint: BH sect. 12 not taking meds, calm Time Seen by Provider: 06/08/25 18:02 Source: patient Mode of arrival: ambulatory Limitations: no limitations History of Present Illness ED Provider: Dr. Mathur HPI narrative: This is a 64-year-old female presented from a fpc. Patient was evaluated by [facility] in the community. Patient's was placed on section. They noted that patient was increasingly paranoid altered mentation had disorganized thinking. Diminished memories as well. Patient has decreased p.o. intake. Was found wandering in the code recently. Patient's is refusing care at this time. The patient states she has no issues at this time. Related Data Home Medications ?Medication ?Instructions ?Recorded ?Confirmed amantadine HCl 100 mg capsule 100 mg PO BID 06/09/25 06/09/25 apixaban 5 mg tablet (Eliquis) 5 mg PO BID 06/09/25 06/09/25 cariprazine 6 mg capsule (Vraylar) 6 mg PO DAILY 06/09/25 06/09/25 divalproex 500 mg tablet,extended 500 mg PO BID 06/09/25 06/09/25 release 24 hr furosemide 40 mg tablet 40 mg PO DAILY 06/09/25 06/09/25 memantine 5 mg tablet 5 mg PO BID 06/09/25 06/09/25 olanzapine 20 mg tablet 20 mg PO BEDTIME 06/09/25 06/09/25 pantoprazole 40 mg tablet,delayed 40 mg PO DAILY 06/09/25 06/09/25 release propranolol 10 mg tablet 10 mg PO BID 06/09/25 06/09/25 quetiapine 25 mg tablet 25 mg PO BEDTIME 06/09/25 06/09/25 sertraline 50 mg tablet 150 mg PO BEDTIME 06/09/25 06/09/25 Allergies Allergy/AdvReac Type Severity Reaction Status Date / Time haloperidol (From Haldol) AdvReac Mild AGITATION Verified 06/08/25 17:06 propranolol AdvReac irregular Verified 06/08/25 17:06 heartbeat Review of Systems Review of Systems: Pertinent review of systems as mentioned in HPI. All other system otherwise negative. [facility] Past Medical History [facility] Narrative: Medical history as mentioned in HPI Medical History Schizoaffective disorder Social History Social History Household Members: Other Housing: Other Do you presently have visiting nurse or other home services: No Alcohol intake: never Comment: on 15 minute safety checks Patient Tobacco Use Status: Never used Tobacco Currently Displaying Signs/Symptoms of Drug Intoxication Withdrawal: No Do you feel safe in your current relationship?: No Current Relationship Advance Directives: No Advance Directives Information Provided: No Suicidal Behavior: Self-injurious behavior Current/Past Psychiatric Disorders: Psychotic disorder Do you have thoughts of harming others: None Do you have a plan to hurt others: No Plan Recently lost weight without trying: No Nutrition Risks: No Nutritional Risk Patient : No : No service: No Sexual orientation: Straight/Heterosexual Physical Exam ED Exam Exam: General: Pleasant, no distress, interacting appropriately Head: Normacephalic, atraumatic ENT: oral mucosa moist, neck supple, no tracheal deviation Respiratory: Does not appear to be in respiratory distress Neurological: Awake and alert, no facial droop noted Skin: Warm and dry Psychiatric: Appropriate mood and thoughts Vital Signs: Vital Signs - 24 hr 06/12/25 14:09 06/12/25 17:36 06/12/25 21:08 Temperature 97.8 F 98.2 F Pulse Rate 79 76 72 Respiratory Rate 16 16 Blood Pressure 114/59 L 119/59 L 108/69 Pulse Oximetry 92 Oxygen Delivery Method Room Air 06/12/25 21:14 06/13/25 10:07 Temperature 96.2 F L 97.6 F Pulse Rate 72 88 Respiratory Rate 16 Blood Pressure 108/69 108/53 L Pulse Oximetry 93 96 Oxygen Delivery Method Room Air Room Air BMI result Body Mass Index 24.9 Course Reevaluation(s) Reevaluation #1: Time: 05:55 Date: 06/09/25 Provider: Mina Brenner MD Patient in physician observation for psychiatric evaluation.? No acute events reported overnight. No current complaints. VS stable.? Patient is in bed search status/pending CARE team evaluation. Will continue to monitor. Time: 09:39 Date: 06/10/25 Provider: Ishmael Deleon, Patient in physician observation for psychiatric evaluation.? No acute events reported overnight.IPLOC/BS No current complaints. VS stable.? Will continue to monitor. 1:46 PM 06/10/2025 (Dr. Ishmael Deleon): notified that patient is tachycardic to 140s, having diarrhea, vital signs reveal patient has been increasingly tachycardic since yesterday mid day 2:49 PM 06/10/2025 (Dr. Ishmael Deleon): noted lactic elevation,She is afebrile, considering infection with abdomen is source of infection, we will obtain stool culture, cover with antibiotics, provide IV fluids, code sepsis activated, patient re-evaluated, exam is somewhat limited she is not really able to contribute to her history, nondistended abdomen she was initially started on cephalexin for UTI, but no urine cultures obtained I will repeat that study and obtain a urine culture, and we will obtain CT abdomen and pelvis and we will give additional antibiotics Time: 05:54 Date: 06/11/25 Provider: Marie Mathur, DO Patient in physician observation for psychiatric evaluation.? workup for tachycardia that started yesterday. Tachycardia resolved, CT negative. Time: 05:27 Date: 06/12/25 Provider: Jatin Johnston MD Patient in physician observation for psychiatric evaluation.? No acute events reported overnight. No current complaints. VS stable.? blood cultures from 06/10/2025 no growth . Urine culture from 06/11/2025 no growth. Patient was re-evaluated by CARE team yesterday and continues to meet inpatient criteria. no further reports of tachycardia or other complaints overnight. Will continue to monitor. 1:07 PM 06/13/2025 (Dr. Ishmael Deleon): Physician observation ended at 13:07 hours. Patient admitted to S1 Medications Administered Generic Name Dose Route Start Last Admin Trade Name Freq PRN Reason Stop Dose Admin Acetaminophen 650 mg 06/09/25 13:00 06/19/25 01:14 Acetaminophen 325 Mg Tablet PO 650 mg Q6H PRN Administration Headache/Pain Mild Scale (1-3) Amantadine HCl 100 mg 06/09/25 21:00 06/19/25 20:10 Amantadine Hcl 100 Mg Capsule PO 100 mg BID ANNA Administration Apixaban 5 mg 06/09/25 21:00 06/19/25 20:11 Apixaban 5 Mg Tablet PO 5 mg BID ANNA Administration Divalproex Sodium 500 mg 06/09/25 21:00 06/19/25 20:10 Divalproex Sodium Er 500 Mg Tab.Er.24h PO 500 mg BID ANNA Administration Hydroxyzine HCl 25 mg 06/13/25 12:03 06/19/25 01:14 Hydroxyzine Hcl 25 Mg Tablet PO 25 mg Q6H PRN Administration mild anxiety Memantine 5 mg 06/09/25 21:00 06/19/25 20:10 Memantine Hcl 5 Mg Tablet PO 5 mg BID ANNA Administration Olanzapine 20 mg 06/13/25 21:00 06/19/25 22:41 Olanzapine Odt 10 Mg Tab.Rapdis TRANSLINGU Not Given BEDTIME ANNA Omeprazole 20 mg 06/09/25 17:30 06/20/25 06:31 Omeprazole 20 Mg Capsule.Dr PO Not Given DAILY@0630 ANNA Paliperidone 6 mg 06/19/25 09:00 06/19/25 08:42 Paliperidone Er 6 Mg Tab.Er.24 PO 6 mg DAILY ANNA Administration Propranolol HCl 10 mg 06/09/25 21:00 06/19/25 20:11 Propranolol Hcl 10 Mg Tablet PO 10 mg BID ANNA Administration Protocol Sertraline HCl 100 mg 06/13/25 21:00 06/19/25 20:10 Sertraline Hcl 100 Mg Tablet PO 100 mg BEDTIME ANNA Administration Discontinued Medications Generic Name Dose Route Start Last Admin Trade Name Freq PRN Reason Stop Dose Admin Cariprazine 6 mg 06/09/25 17:30 06/18/25 09:17 Cariprazine Hcl 3 Mg Capsule PO 6 mg DAILY ANNA Administration Cephalexin HCl 500 mg 06/09/25 18:00 06/14/25 05:59 Cephalexin 500 Mg Capsule PO 500 mg Q12H ANNA Administration Furosemide 40 mg 06/09/25 17:30 06/13/25 09:48 Furosemide 40 Mg Tablet PO 40 mg DAILY ANNA Administration Protocol Sodium Chloride 1,000 mls @ 999 mls/hr 06/10/25 14:00 06/10/25 15:40 Ns IV 06/10/25 15:00 Infused .Q1H1M ANNA Infusion Ceftriaxone Sodium 1 gm/ 50 mls @ 100 mls/hr 06/10/25 14:52 06/10/25 15:40 Sodium Chloride IV 06/10/25 15:21 Infused ONCE ONE Infusion Acetaminophen 1,000 mg in 100 mls @ 400 mls/hr 06/10/25 14:57 06/10/25 15:39 Ofirmev IV 06/10/25 15:11 Infused ONCE ONE Infusion Iohexol 100 ml 06/10/25 15:42 06/10/25 15:43 Iohexol 350 Mg/Ml 100 Ml Infus..Btl IV 06/10/25 15:43 85 ml ONCE ONE Administration Loperamide HCl 2 mg 06/10/25 13:48 06/10/25 14:41 Loperamide Hcl 2 Mg Capsule PO 06/10/25 13:49 2 mg ONCE ONE Administration Midazolam HCl 5 mg 06/08/25 18:32 06/08/25 20:12 Midazolam Hcl 5 Mg/Ml Vial IM 06/08/25 18:33 5 mg ONCE ONE Administration Olanzapine 5 mg 06/08/25 18:33 06/08/25 20:12 Olanzapine 10 Mg Vial IM 06/08/25 18:34 5 mg STAT STA Administration Olanzapine 20 mg 06/09/25 21:00 06/12/25 21:06 Olanzapine 10 Mg Tablet PO 20 mg BEDTIME ANNA Administration Potassium Chloride 20 meq 06/09/25 20:35 06/09/25 21:17 Potassium Chloride Er 20 Meq Tab.Er.Prt PO 06/09/25 20:36 20 meq ONCE ONE Administration Potassium Chloride 40 meq 06/10/25 09:10 06/10/25 09:47 Potassium Chloride Packet 20 Meq Packet PO 06/10/25 09:11 40 meq ONCE ONE Administration Quetiapine Fumarate 25 mg 06/09/25 21:00 06/12/25 21:06 Quetiapine Fumarate 25 Mg Tablet PO 25 mg BEDTIME ANNA Administration Sertraline HCl 150 mg 06/09/25 21:00 06/12/25 21:06 Sertraline Hcl 50 Mg Tablet PO 150 mg BEDTIME ANNA Administration Medical Decision Making Medical Decision Making MDM Narrative: This is a 64-year-old female presented hospital from the fpc for evaluation of increased altered mentation paranoid disorganized thinking. Patient's according to triage nurse has a [place] order. Patient is not cooperating at this time. We will plan to give patient some IM medications Zyprexa and Versed. Care team evaluation has been placed. [facility] has placed the patient in for inpatient bed search. UA does show signs of positive UTI. We will plan to start patient on Keflex course. Pending bed search at this time. Patient will be signed out to oncoming provider pending inpatient bed search. I took over patient's case at the change of shift. Patient presented sectioned from fpc having paranoia. Anxiety. Was being re-evaluated by Psychiatry. While patient was in the psychiatric unit patient developed a low-grade fever also tachycardia. Was sent back to the main ED for further evaluation. I took over the case once patient arrived back in the emergent care area. Patient has a history of being on Eliquis. I interpreted patient's CT scan of the abdomen pelvis is grossly negative there is no obstruction no abscess I reviewed radiology's reading which showed the same. My interpretation patient's chest x-ray is grossly negative there is no pneumonia there is no pneumothorax I reviewed radiology's reading which is the same patient is COVID flu RSV were all negative. Initial lactate is 3.0. Given IV fluids repeat lactate is less than 2 at 1.3. No evidence for severe sepsis. Patient's urine showed no evidence of infection. Heart rate is down. Clinically feels improved. Patient's heart rate is down. Will get crisis to re-evaluate patient. Patient comfortable no distress watching a movie at this point. Has no complaints. 21:10 on June 10 2025- Wang Differential Diagnosis Differential Diagnoses: The differential diagnosis associated with the presentation includes Altered mentation, schizophrenia, schizoaffective disorder, Admission/Observation Consideration of admission/observation: Escalation of care including admission/observation considered Lab Data MDM Lab Attestation statement: I reviewed the patient's lab results. 06/09/25 15:36 06/14/25 07:35 Labs: Lab Results 06/08/25 06/09/25 06/10/25 Range/Units 20:47 15:36 13:33 WBC 11.3 H (4.8-10.8) X10*3/uL RBC 4.89 (4.20-5.50) X10*6/uL Hgb 15.4 (12.0-16.0) g/dl Hct 46.1 (37.0-47.0) % MCV 94.3 (80.0-98.0) fL MCH 31.5 (27.0-33.0) pg MCHC 33.4 (31.0-35.0) g/dl RDW 13.1 (11.0-16.0) % Plt Count 195 (160-400) X10*3/uL MPV 11.5 (9.4-12.3) fL Immature Gran % (Auto) 0.3 (0.0-0.4) % Neut % (Auto) 68.5 (45-73) % Lymph % (Auto) 18.1 L (20-40) % [place] % (Auto) 12.4 H (2-11) % Eos % (Auto) 0.1 (0-4) % Baso % (Auto) 0.6 (0-2) % Lymph # (Auto) 2.1 (1.2-4.9) X10*3/uL [place] # (Auto) 1.4 H (0.1-1.2) X10*3/uL Eos # (Auto) 0.0 (0.0-0.4) X10*3/uL Baso # (Auto) 0.1 (0.0-0.2) X10*3/uL Abs Immat Gran (auto) 0.03 (0.00-0.03) X10*3/uL Absolute Neuts (auto) 7.7 (2.0-8.3) x10*3/uL Absolute Nucleated RBC 0.000 (0.0-0.012) X10*3/uL Nucleated RBC % (auto) 0.0 (0.0-0.2) /100WBC Sodium 141 (135-145) mmol/L Potassium 3.2 L (3.3-5.1) mmol/L Chloride 101 (96-108) mmol/L Carbon Dioxide 26 (22-29) mmol/L Anion Gap 17 (12-20) BUN 32 H (9-16) mg/dL Creatinine 1.26 (0.5-1.4) mg/dL Estim Creat Clear Calc 41.0 Estimated GFR 42 POC Glucose 180 H (60-115) mg/dL Random Glucose 164 H (60-115) mg/dL Lactic Acid (0.5-2.0) mmol/L Lactic Acid F/U @ 2Hr (0.5-2.0) mmol/L Calcium 10.0 D (8.4-10.2) mg/dL Total Bilirubin 0.3 (0.0-1.0) mg/dL AST 33 H (5-31) U/L ALT 18 (0-31) U/L Alkaline Phosphatase 115 (39-117) U/L Total Protein 7.5 (6.5-8.0) g/dL Albumin 4.2 (3.5-5.0) g/dL Urine Color Yellow Urine Appearance Clear Urine pH 5.5 (5.0-9.0) Ur Specific Grace 1.025 (1.005-1.025) Urine Protein Trace (Neg-Trace) mg/dL Urine Glucose (UA) Negative (Negative) mg/dL Urine Ketones 15 (Negative) mg/dL Urine Blood Negative (Negative) Urine Nitrite Negative (Negative) Ur Leukocyte Esterase Moderate (2+) H (Negative) Urine RBC 0-2 (0-2) /HPF Urine WBC 11-20 H (0-5) /HPF Ur Squamous Epith Cells 3-5 (0-2) /HPF Urine Bacteria 1+ (None Seen) Hyaline Casts 3-5 (0-2) /LPF Urine Yeast Stl C. cayetanensis PCR (Not Detect.) Stool Rotavirus A PCR (Not Detect.) Stl Adenov F 40/41 PCR (Not Detect.) Stool Astrovirus (PCR) (Not Detect.) Stool Campylobacter PCR (Not Detect.) Stool Cryptosporidium PCR (Not Detect.) Stl Sh Tox Pr E STEC PCR (Not Detect.) Stool E coli O157 PCR (Not Detect.) Stl Enterotoxigenic E PCR (Not Detect.) Stool EPEC (PCR) (Not Detect.) Stool EAEC (PCR) (Not Detect.) Stl E. histolytica PCR (Not Detect.) Stool Giardia Lamblia PCR (Not Detect.) Stl P. shigelloides PCR (Not Detect.) Stool Salmonella PCR (Not Detect.) Stool Sapovirus (PCR) (Not Detect.) Stl Shigella/EIEC PCR (Not Detect.) St Y.enterocolitica PCR (Not Detect.) Stool Vibrio (PCR) (Not Detect.) Stl Vibrio cholerae PCR (Not Detect.) Stl Norovirus GI/GII PCR (Not Detect.) Salicylates < 5.0 L (15-30) mg/dL Urine Opiates Screen Not Detected (Not Detect) Ur Buprenorphine Scrn Not Detected (Not Detect) ng/mL Ur Oxycodone Screen Not Detected (Not Detect) ng/mL Urine Methadone Screen Not Detected (Not Detect) ng/mL Urine Fentanyl Screen Not Detected (Not Detect) Acetaminophen < 3 (<30) mcg/mL Ur Barbiturates Screen Not Detected (Not Detect) Ur Phencyclidine Scrn Not Detected (Not Detect) Ur Amphetamines Screen Not Detected (Not Detect) U Benzodiazepines Scrn Not Detected (Not Detect) Urine Cocaine Screen Not Detected (Not Detect) U Marijuana (THC) Screen Not Detected (Not Detect) Ethyl Alcohol 12 mg/dL C. difficile Tox B Gene (Negative) COVID-19 (RIDDHI) Negative (Negative) COVID-19 Clin Com See Note Influenza Type A (PCR) (Negative) Influenza Type B (PCR) (Negative) RSV RNA Qual (PCR) (Negative) SARS-CoV-2 RNA (RT-PCR) (Negative) 06/10/25 06/10/25 06/10/25 Range/Units 14:23 14:25 15:09 WBC (4.8-10.8) X10*3/uL RBC (4.20-5.50) X10*6/uL Hgb (12.0-16.0) g/dl Hct (37.0-47.0) % MCV (80.0-98.0) fL MCH (27.0-33.0) pg MCHC (31.0-35.0) g/dl RDW (11.0-16.0) % Plt Count (160-400) X10*3/uL MPV (9.4-12.3) fL Immature Gran % (Auto) (0.0-0.4) % Neut % (Auto) (45-73) % Lymph % (Auto) (20-40) % [place] % (Auto) (2-11) % Eos % (Auto) (0-4) % Baso % (Auto) (0-2) % Lymph # (Auto) (1.2-4.9) X10*3/uL [place] # (Auto) (0.1-1.2) X10*3/uL Eos # (Auto) (0.0-0.4) X10*3/uL Baso # (Auto) (0.0-0.2) X10*3/uL Abs Immat Gran (auto) (0.00-0.03) X10*3/uL Absolute Neuts (auto) (2.0-8.3) x10*3/uL Absolute Nucleated RBC (0.0-0.012) X10*3/uL Nucleated RBC % (auto) (0.0-0.2) /100WBC Sodium 142 (135-145) mmol/L Potassium 4.0 D (3.3-5.1) mmol/L Chloride 107 (96-108) mmol/L Carbon Dioxide 22 (22-29) mmol/L Anion Gap 17 (12-20) BUN 34 H (9-16) mg/dL Creatinine 1.10 (0.5-1.4) mg/dL Estim Creat Clear Calc 46.9 Estimated GFR 50 POC Glucose 172 H (60-115) mg/dL Random Glucose 172 H (60-115) mg/dL Lactic Acid 3.0 H* (0.5-2.0) mmol/L Lactic Acid F/U @ 2Hr (0.5-2.0) mmol/L Calcium 9.3 D (8.4-10.2) mg/dL Total Bilirubin 0.5 (0.0-1.0) mg/dL AST 36 H (5-31) U/L ALT 18 (0-31) U/L Alkaline Phosphatase 98 (39-117) U/L Total Protein 7.6 (6.5-8.0) g/dL Albumin 4.1 (3.5-5.0) g/dL Urine Color Urine Appearance Urine pH (5.0-9.0) Ur Specific Grace (1.005-1.025) Urine Protein (Neg-Trace) mg/dL Urine Glucose (UA) (Negative) mg/dL Urine Ketones (Negative) mg/dL Urine Blood (Negative) Urine Nitrite (Negative) Ur Leukocyte Esterase (Negative) Urine RBC (0-2) /HPF Urine WBC (0-5) /HPF Ur Squamous Epith Cells (0-2) /HPF Urine Bacteria (None Seen) Hyaline Casts (0-2) /LPF Urine Yeast Stl C. cayetanensis PCR (Not Detect.) Stool Rotavirus A PCR (Not Detect.) Stl Adenov F 40/41 PCR (Not Detect.) Stool Astrovirus (PCR) (Not Detect.) Stool Campylobacter PCR (Not Detect.) Stool Cryptosporidium PCR (Not Detect.) Stl Sh Tox Pr E STEC PCR (Not Detect.) Stool E coli O157 PCR (Not Detect.) Stl Enterotoxigenic E PCR (Not Detect.) Stool EPEC (PCR) (Not Detect.) Stool EAEC (PCR) (Not Detect.) Stl E. histolytica PCR (Not Detect.) Stool Giardia Lamblia PCR (Not Detect.) Stl P. shigelloides PCR (Not Detect.) Stool Salmonella PCR (Not Detect.) Stool Sapovirus (PCR) (Not Detect.) Stl Shigella/EIEC PCR (Not Detect.) St Y.enterocolitica PCR (Not Detect.) Stool Vibrio (PCR) (Not Detect.) Stl Vibrio cholerae PCR (Not Detect.) Stl Norovirus GI/GII PCR (Not Detect.) Salicylates (15-30) mg/dL Urine Opiates Screen (Not Detect) Ur Buprenorphine Scrn (Not Detect) ng/mL Ur Oxycodone Screen (Not Detect) ng/mL Urine Methadone Screen (Not Detect) ng/mL Urine Fentanyl Screen (Not Detect) Acetaminophen (<30) mcg/mL Ur Barbiturates Screen (Not Detect) Ur Phencyclidine Scrn (Not Detect) Ur Amphetamines Screen (Not Detect) U Benzodiazepines Scrn (Not Detect) Urine Cocaine Screen (Not Detect) U Marijuana (THC) Screen (Not Detect) Ethyl Alcohol mg/dL C. difficile Tox B Gene (Negative) COVID-19 (RIDDHI) (Negative) COVID-19 Clin Com Influenza Type A (PCR) NEGATIVE (Negative) Influenza Type B (PCR) NEGATIVE (Negative) RSV RNA Qual (PCR) NEGATIVE (Negative) SARS-CoV-2 RNA (RT-PCR) NEGATIVE (Negative) 06/10/25 06/10/25 06/11/25 Range/Units 16:44 19:12 10:43 WBC (4.8-10.8) X10*3/uL RBC (4.20-5.50) X10*6/uL Hgb (12.0-16.0) g/dl Hct (37.0-47.0) % MCV (80.0-98.0) fL MCH (27.0-33.0) pg MCHC (31.0-35.0) g/dl RDW (11.0-16.0) % Plt Count (160-400) X10*3/uL MPV (9.4-12.3) fL Immature Gran % (Auto) (0.0-0.4) % Neut % (Auto) (45-73) % Lymph % (Auto) (20-40) % [place] % (Auto) (2-11) % Eos % (Auto) (0-4) % Baso % (Auto) (0-2) % Lymph # (Auto) (1.2-4.9) X10*3/uL [place] # (Auto) (0.1-1.2) X10*3/uL Eos # (Auto) (0.0-0.4) X10*3/uL Baso # (Auto) (0.0-0.2) X10*3/uL Abs Immat Gran (auto) (0.00-0.03) X10*3/uL Absolute Neuts (auto) (2.0-8.3) x10*3/uL Absolute Nucleated RBC (0.0-0.012) X10*3/uL Nucleated RBC % (auto) (0.0-0.2) /100WBC Sodium (135-145) mmol/L Potassium (3.3-5.1) mmol/L Chloride (96-108) mmol/L Carbon Dioxide (22-29) mmol/L Anion Gap (12-20) BUN (9-16) mg/dL Creatinine (0.5-1.4) mg/dL Estim Creat Clear Calc Estimated GFR POC Glucose (60-115) mg/dL Random Glucose (60-115) mg/dL Lactic Acid (0.5-2.0) mmol/L Lactic Acid F/U @ 2Hr 1.3 (0.5-2.0) mmol/L Calcium (8.4-10.2) mg/dL Total Bilirubin (0.0-1.0) mg/dL AST (5-31) U/L ALT (0-31) U/L Alkaline Phosphatase (39-117) U/L Total Protein (6.5-8.0) g/dL Albumin (3.5-5.0) g/dL Urine Color Yellow Urine Appearance Clear Urine pH 6.5 (5.0-9.0) Ur Specific Grace >= 1.030 H (1.005-1.025) Urine Protein Negative (Neg-Trace) mg/dL Urine Glucose (UA) Negative (Negative) mg/dL Urine Ketones Negative (Negative) mg/dL Urine Blood Negative (Negative) Urine Nitrite Negative (Negative) Ur Leukocyte Esterase Negative (Negative) Urine RBC (0-2) /HPF Urine WBC (0-5) /HPF Ur Squamous Epith Cells (0-2) /HPF Urine Bacteria (None Seen) Hyaline Casts (0-2) /LPF Urine Yeast Stl C. cayetanensis PCR Not Detected (Not Detect.) Stool Rotavirus A PCR Not Detected (Not Detect.) Stl Adenov F 40/41 PCR Not Detected (Not Detect.) Stool Astrovirus (PCR) Not Detected (Not Detect.) Stool Campylobacter PCR Not Detected (Not Detect.) Stool Cryptosporidium PCR Not Detected (Not Detect.) Stl Sh Tox Pr E STEC PCR Not Detected (Not Detect.) Stool E coli O157 PCR Not applicable (Not Detect.) Stl Enterotoxigenic E PCR Not Detected (Not Detect.) Stool EPEC (PCR) Not Detected (Not Detect.) Stool EAEC (PCR) Not Detected (Not Detect.) Stl E. histolytica PCR Not Detected (Not Detect.) Stool Giardia Lamblia PCR Not Detected (Not Detect.) Stl P. shigelloides PCR Not Detected (Not Detect.) Stool Salmonella PCR Not Detected (Not Detect.) Stool Sapovirus (PCR) Not Detected (Not Detect.) Stl Shigella/EIEC PCR Not Detected (Not Detect.) St Y.enterocolitica PCR Not Detected (Not Detect.) Stool Vibrio (PCR) Not Detected (Not Detect.) Stl Vibrio cholerae PCR Not Detected (Not Detect.) Stl Norovirus GI/GII PCR Detected A (Not Detect.) Salicylates (15-30) mg/dL Urine Opiates Screen (Not Detect) Ur Buprenorphine Scrn (Not Detect) ng/mL Ur Oxycodone Screen (Not Detect) ng/mL Urine Methadone Screen (Not Detect) ng/mL Urine Fentanyl Screen (Not Detect) Acetaminophen (<30) mcg/mL Ur Barbiturates Screen (Not Detect) Ur Phencyclidine Scrn (Not Detect) Ur Amphetamines Screen (Not Detect) U Benzodiazepines Scrn (Not Detect) Urine Cocaine Screen (Not Detect) U Marijuana (THC) Screen (Not Detect) Ethyl Alcohol mg/dL C. difficile Tox B Gene NEGATIVE (Negative) COVID-19 (RIDDHI) (Negative) COVID-19 Clin Com Influenza Type A (PCR) (Negative) Influenza Type B (PCR) (Negative) RSV RNA Qual (PCR) (Negative) SARS-CoV-2 RNA (RT-PCR) (Negative) 06/11/25 06/13/25 Range/Units 10:47 10:37 WBC (4.8-10.8) X10*3/uL RBC (4.20-5.50) X10*6/uL Hgb (12.0-16.0) g/dl Hct (37.0-47.0) % MCV (80.0-98.0) fL MCH (27.0-33.0) pg MCHC (31.0-35.0) g/dl RDW (11.0-16.0) % Plt Count (160-400) X10*3/uL MPV (9.4-12.3) fL Immature Gran % (Auto) (0.0-0.4) % Neut % (Auto) (45-73) % Lymph % (Auto) (20-40) % [place] % (Auto) (2-11) % Eos % (Auto) (0-4) % Baso % (Auto) (0-2) % Lymph # (Auto) (1.2-4.9) X10*3/uL [place] # (Auto) (0.1-1.2) X10*3/uL Eos # (Auto) (0.0-0.4) X10*3/uL Baso # (Auto) (0.0-0.2) X10*3/uL Abs Immat Gran (auto) (0.00-0.03) X10*3/uL Absolute Neuts (auto) (2.0-8.3) x10*3/uL Absolute Nucleated RBC (0.0-0.012) X10*3/uL Nucleated RBC % (auto) (0.0-0.2) /100WBC Sodium 142 (135-145) mmol/L Potassium 3.5 (3.3-5.1) mmol/L Chloride 105 (96-108) mmol/L Carbon Dioxide 32 H (22-29) mmol/L Anion Gap 9 L (12-20) BUN 18 H (9-16) mg/dL Creatinine 0.68 (0.5-1.4) mg/dL Estim Creat Clear Calc 75.9 Estimated GFR > 60 POC Glucose (60-115) mg/dL Random Glucose 107 (60-115) mg/dL Lactic Acid (0.5-2.0) mmol/L Lactic Acid F/U @ 2Hr (0.5-2.0) mmol/L Calcium 9.1 (8.4-10.2) mg/dL Total Bilirubin 0.2 (0.0-1.0) mg/dL AST 29 (5-31) U/L ALT 23 (0-31) U/L Alkaline Phosphatase 101 (39-117) U/L Total Protein 6.7 (6.5-8.0) g/dL Albumin 3.7 (3.5-5.0) g/dL Urine Color Yellow Urine Appearance Cloudy Urine pH 6.5 (5.0-9.0) Ur Specific [place] >= 1.030 H (1.005-1.025) Urine Protein Trace (Neg-Trace) mg/dL Urine Glucose (UA) Negative (Negative) mg/dL Urine Ketones Trace (Negative) mg/dL Urine Blood Small (1+) H (Negative) Urine Nitrite Negative (Negative) Ur Leukocyte Esterase Small (1+) H (Negative) Urine RBC 0-2 (0-2) /HPF Urine WBC 6-10 (0-5) /HPF Ur Squamous Epith Cells 6-10 (0-2) /HPF Urine Bacteria 3+ (None Seen) Hyaline Casts 0-2 (0-2) /LPF Urine Yeast Present Stl C. cayetanensis PCR (Not Detect.) Stool Rotavirus A PCR (Not Detect.) Stl Adenov F 40/41 PCR (Not Detect.) Stool Astrovirus (PCR) (Not Detect.) Stool Campylobacter PCR (Not Detect.) Stool Cryptosporidium PCR (Not Detect.) Stl Sh Tox Pr E STEC PCR (Not Detect.) Stool E coli O157 PCR (Not Detect.) Stl Enterotoxigenic E PCR (Not Detect.) Stool EPEC (PCR) (Not Detect.) Stool EAEC (PCR) (Not Detect.) Stl E. histolytica PCR (Not Detect.) Stool Giardia Lamblia PCR (Not Detect.) Stl P. shigelloides PCR (Not Detect.) Stool Salmonella PCR (Not Detect.) Stool Sapovirus (PCR) (Not Detect.) Stl Shigella/EIEC PCR (Not Detect.) St Y.enterocolitica PCR (Not Detect.) Stool Vibrio (PCR) (Not Detect.) Stl Vibrio cholerae PCR (Not Detect.) Stl Norovirus GI/GII PCR (Not Detect.) Salicylates (15-30) mg/dL Urine Opiates Screen (Not Detect) Ur Buprenorphine Scrn (Not Detect) ng/mL Ur Oxycodone Screen (Not Detect) ng/mL Urine Methadone Screen (Not Detect) ng/mL Urine Fentanyl Screen (Not Detect) Acetaminophen (<30) mcg/mL Ur Barbiturates Screen (Not Detect) Ur Phencyclidine Scrn (Not Detect) Ur Amphetamines Screen (Not Detect) U Benzodiazepines Scrn (Not Detect) Urine Cocaine Screen (Not Detect) U Marijuana (THC) Screen (Not Detect) Ethyl Alcohol mg/dL C. difficile Tox B Gene (Negative) COVID-19 (RIDDHI) (Negative) COVID-19 Clin Com Influenza Type A (PCR) (Negative) Influenza Type B (PCR) (Negative) RSV RNA Qual (PCR) (Negative) SARS-CoV-2 RNA (RT-PCR) (Negative) Independent Interpretation I performed an independent interpretation of an: Plain X-Ray ( My independent chest xray interpretation: Lungs: Lungs are clear bilaterally without evidence of focal consolidation, pleural effusion, or pneumothorax. Cardiac silhouette is unremarkable, no obvious mediastinal widening, no obvious bony abnormalities such as fractures. Impression: Normal chest X-) Discharge Plan Discharge Clinical Impression: Paranoia, Acute UTI Patient Disposition: Admitted As Inpatient Interventions: Admission Worksheet (ED) Last Done: 06/13/25 13:19 Discharge Date/Time: 06/13/25 13:20
--- NOTE | 2025-06-08 19:03 | PC.NURSE ---
per charge who spoke with the provider, IM medications were put in for the patient if she would not twisting frame changer--we are to wait until after shift change to see if new faces can convince her to change.
--- OUTSIDE RECORDS SUMMARY | 2025-06-08 20:00 | XMS_ITS | Encounter Summary ---
Author Organization [email or web address] Address 75 [facility] 7t [place] [address] Care Team Providers Care Court Deputy Name Role Phone Tiffany Crow MD Primary Care Provider [phone] Garett Hamilton CNP Primary Care Provider [phone] Encounter Details Date Type Department Care Team (Late st Contact Info) Description 06/22/2024 Orders Only [facility] CHC MED & PEDS 505 [place], [place] [phone] Tiffany Crow MD 505 [place] [address] Social History Tobacco Use Types Packs/Day Years [...] on filedocumented in this encounter Care Teams Court Deputy Relationship Specialty Start Date End Date Tiffany Crow MD [address] [place] [address] PCP - General Family Medicine 10/19/17 05/06/25 Garett Hamilton CNP 505 [place] [address] PCP - General Family Medicine 05/07/25 Jelani [facility] 04/18/25 documented as of this encounter
--- OUTSIDE RECORDS SUMMARY | 2025-06-08 20:00 | XMS_ITS | Encounter Summary ---
Author Organization [employer] Address 75 [facility] 7t [place] [address] Care Team Providers Care Change Person Name Role Phone Garett Hamilton CNP Primary Care Provider [phone] Reason for Visit * Reason Onset Date Comments Call Back Request 05/16/2025 Encounter Details Date Type Department Care Team (Late st Contact Info) Description 05/16/2025 Telephone [facility] MEDICINE 230 [place], [place] [phone] Garett Hamilton CNP [address] [facility] [address] [place], [place] [phone] Call Back Request Social History Tobacco Use [...] 2:26 PM EST Tc from Ariane with [facility] requesting a call back for med reconciliation. Ariane stated will be faxing form with details. Ariane want meds to be sent to [facility]. To contact Ariane at [phone] PCP GRIND OPERATOR Alfonso documented in this encounter Plan of Treatment Not on file documented as of this encounter Visit Diagnoses Not on filedocumented in this encounter Additional Health Concerns Assessment Noted Time PHQ-9 Depression Total Score: 4 04/19/20 11:14 AM EDT documented as of this encounter Care Teams Change Person Relationship Specialty Start Date End Date Garett Hamilton CNP [address] [place] [address] PCP - General Family Medicine 05/07/25 Jelani [facility] 04/18/25 documented as of this encounter
--- OUTSIDE RECORDS SUMMARY | 2025-06-08 20:00 | XMS_ITS | Encounter Summary ---
Author Organization [employer] Address [address] [place] [address] 7 [place] [address] Care Team Providers Care Ceramic Design Engineer Name Role Phone Tiffany Crow MD Primary Care Provider [phone] Garett Hamilton CNP Primary Care Provider [phone] Reason for Referral * Imaging (Routine) - Authorized Specialty Diagnoses / Procedures Referred By Contac t Referred To Contact Radiology Diagnoses Transaminitis Elevated alkaline phosphatase level Procedures US Abdomen Comp w elastography Karen Rhodes MD [address] [place] [address] Phone: tel: fax: [address] [address] Phone: tel: fax: Referral ID Status Reason Start Date Expiration Date V isits Requested Visits Authorized [id number] Authorized 04/19/2025 04/19/2026 1 1 Encounter Details Date Type Department Care Team (Late st Contact Info) Description 04/19/2025 Orders Only [facility] CHC MED & PEDS 505 [place] [address] Karen Rhodes MD [address] [place] [address] [phone] Transaminitis (Primary Dx); Elevated alkaline phosphatase level [...] 4:34 PM EDT 04/19/2025 4:34 PM EDT Comment:[facility] - 04/21/2025 10:03 AM EDT Urine Culture Report Result Urine Culture 50,000 to 100,000 cfu/ml Urine Culture Mixed bacterial jorge characteristic of Urine Culture urogenital contamination. Specimen Source: Urine clean catch Karen Rhodes MD LAB MICROBIOLOGY - GENERAL ORDERABLES Final Result [facility] [address] [place] [address] [phone] documented in this encounter Visit Diagnoses Diagnosis Transaminitis- Primary Nonspecific elevation of levels of transaminase or lactic acid dehydrogenase (LDH) Elevated alkaline phosphatase level documented in this encounter Additional Health Concerns Assessment Noted Time PHQ-9 Depression Total Score: 4 04/19/20 11:14 AM EDT documented as of this encounter Care Teams Ceramic Design Engineer Relationship Specialty Start Date End Date Tiffany Crow MD [address] [place] [address] PCP - General Family Medicine 10/19/17 05/06/25 Garett Hamilton CNP [address] [place] [address] PCP - General Family Medicine 05/07/25 Jelani [facility] 04/18/25 documented as of this encounter
--- OUTSIDE RECORDS SUMMARY | 2025-06-08 20:00 | XMS_ITS | Encounter Summary ---
Author Organization [employer] Address 75 [facility] 7 [place] [address] Care Team Providers Care Bucket Operator Name Role Phone Garett Hamilton CNP Primary Care Provider [phone] Reason for Visit * Reason Onset Date Comments Med Refill 05/17/2025 Encounter Details Date Type Department Care Team ([facility] st Contact Info) Description 05/17/2025 Telephone [facility] MED & PEDS 505 [place] [address] Garett Hamilton CNP 505 [place] [address] Med Refill Social History Tobacco Use Types [...] 40 MG tablet To be sent to: [facility] [place], [place] - [facility] Main documented in this encounter Plan of Treatment Not on file documented as of this encounter Visit Diagnoses Not on filedocumented in this encounter Additional Health Concerns Assessment Noted Time PHQ-9 Depression Total Score: 4 04/19/20 11:14 AM EDT documented as of this encounter Care Teams Bucket Operator Relationship Specialty Start Date End Date Garett Hamilton CNP [address] [place] [address] PCP - General Family Medicine 05/07/25 Jelani [facility] 04/18/25 documented as of this encounter
--- OUTSIDE RECORDS SUMMARY | 2025-06-08 20:00 | XMS_ITS | Encounter Summary ---
Author Organization [employer] Address 75 [facility] 7t [place] [address] Care Team Providers Care Database Designer Name Role Phone Garett Hamilton GOURMET COFFEE ATTENDANT Primary Care Provider [phone] Reason for Visit * Reason Comments Med Refill Encounter Details Date Type Department Care Team ([facility] Contact Info) Description 06/05/2025 Refill [facility] CHC MED & PEDS 505 [place] [address] Karen Rhodes MD 505 [place] [address] Social History Tobacco Use Types Packs/Day Years [...] documented as of this encounter Care Teams Database Designer Relationship Specialty Start Date End Date Garett Hamilton CNP [address] [place] [address] PCP - General Family Medicine 05/07/25 Jelani [facility] 04/18/25 documented as of this encounter
--- OUTSIDE RECORDS SUMMARY | 2025-06-08 20:00 | XMS_ITS | Encounter Summary ---
Author Organization [employer] Address 75 [facility] 7t [place] [address] Care Team Providers Care Wireless Team Member Name Role Phone Garett Hamilton HOT MILL SHEARER Primary Care Provider [phone] Reason for Visit * Reason Comments Med Refill Encounter Details Date Type Department Care Team ([facility] Contact Info) Description 06/04/2025 Refill [facility] CHC MED & PEDS 505 [place] [address] Karen Rhodes MD 505 [place] [address] Social History Tobacco Use Types Packs/Day Years [...] documented as of this encounter Care Teams Wireless Team Member Relationship Specialty Start Date End Date Garett Hamilton CNP [address] [place] [address] PCP - General Family Medicine 05/07/25 Jelani [facility] Services 04/18/25 documented as of this encounter
--- OUTSIDE RECORDS SUMMARY | 2025-06-08 20:00 | XMS_ITS | Encounter Summary ---
Author Organization [email or web address] Address 75 [facility] 7t [place] [address] Care Team Providers Care Orthotics Prosthetics Assistant Name Role Phone Tiffany Crow MD Primary Care Provider [phone] Garett Hamilton CNP Primary Care Provider [phone] Reason for Visit * Reason Onset Date Comments Results 04/20/2025 Encounter Details Date Type Department Care Team ([facility] st Contact Info) Description 04/20/2025 Results Follow-Up [facility] CHC MED & PEDS [address] [place] [address] Viviane Casas RN Basic Metabolic Panel, Hepatic [...] documented as of this encounter Care Teams Orthotics Prosthetics Assistant Relationship Specialty Start Date End Date Tiffany Crow MD [address] [place] [address] PCP - General Family Medicine 10/19/17 05/06/25 Garett Hamilton CNP [address] [place] [address] PCP - General Family Medicine 05/07/25 Jelani [facility] 04/18/25 documented as of this encounter
--- OUTSIDE RECORDS SUMMARY | 2025-06-08 20:00 | XMS_ITS | Encounter Summary ---
Author Organization [employer] Address 75 [facility] 7t [place] [address] Care Team Providers Care Advertising Statistical Clerk Name Role Phone Tiffany Crow MD Primary Care Provider [phone] Garett Hamilton CNP Primary Care Provider [phone] Reason for Visit * Reason Onset Date Comments Medication Question 06/20/2024 Encounter Details Date Type Department Care Team ([facility] st Contact Info) Description 06/20/2024 Telephone [facility] MEDICINE 230 [place], [place] [phone] Tiffany Crow MD [address] [place], [place] [phone] Medication Question Social History Tobacco Use Types [...] that all prescriptions should be sent to [facility]. This has been added to the [...] on filedocumented in this encounter Care Teams Advertising Statistical Clerk Relationship Specialty Start Date End Date Tiffany Crow MD [address] [place] [address] PCP - General Family Medicine 10/19/17 05/06/25 Garett Hamilton CNP [address] [place] [address] PCP - General Family Medicine 05/07/25 Jelani [facility] 04/18/25 documented as of this encounter
--- OUTSIDE RECORDS SUMMARY | 2025-06-08 20:00 | XMS_ITS | Encounter Summary ---
Author Organization [employer] Address 75 [facility] 7t [place] [address] Care Team Providers Care Payroll Tax Analyst Name Role Phone Tiffany Crow MD Primary Care Provider Garett Hamilton CNP Primary Care Provider [phone] Reason for Visit * Reason Onset Date Comments Referral 07/08/2023 Encounter Details Date Type Department Care Team ([facility] st Contact Info) Description 07/08/2023 Telephone [facility] CHC MED & PEDS [address] [place] [address] Tiffany Crow MD 505 [place] [address] Referral Social History Tobacco Use Types Packs/Day [...] to Candelaria to get more information as [facility] neurology has multiple providers that can see patient. Candelaria stated she will call [facility] and gather more information and call us if she requires anything else. * Telephone Encounter - Maco Mullen - 07/08/2023 10:08 AM EST Tc from Candelaria, nurse at [facility], regarding a referral. Location: [facility] Date: N/A Time: N/A Fax: N/A Specialty: Neurology New referral needed due to Doctor taking extended time off. Please contact Candelaria at [phone]. documented in this encounter Plan of Treatment Not on file documented as of this encounter Visit Diagnoses Not on filedocumented in this encounter Care Teams Payroll Tax Analyst Relationship Specialty Start Date End Date Tiffany Crow MD [address] [place] [address] PCP - General Family Medicine 10/19/17 05/06/25 Garett Hamilton CNP [address] [place] [address] PCP - General Family Medicine 05/07/25 [facility] 04/18/25 documented as of this encounter
--- OUTSIDE RECORDS SUMMARY | 2025-06-08 20:00 | XMS_ITS | Clinical Summary ---
Author Organization [employer] Address 75 [facility] 7t [place] [address] Care Team Providers Care Chief Nuclear Medicine Technologist Name Role Phone Garett Hamilton PULL UP HAND Primary Care Provider [phone] Allergies Active Allergy Reactions Criticality Noted Date [...] Type Department Care Team Description 06/05/2025 Refill [facility] MED & PEDS [address] [place] [address] Karen Rhodes MD 06/04/2025 Refill [facility] MED & PEDS [address] [place] [address] Karen Rhodes MD 05/28/2025 Telephone [facility] MED [facility] PEDS [address] [place] [address] Garett Hamilton CNP Appointment 05/22/2025 Refill [facility] PEDS [address] [place] [address] Karen Rhodes MD 05/17/2025 Telephone [facility]EDS [address] [place] [address] Garett Hamilton CNP Med Refill 05/17/2025 Refill [facility] MED [facility] PEDS [address] [place] [address] Garett Hamilton CNP 05/16/[address] [facility] 230 [place] [address] Garett Hamilton CNP Call Back Request 04/23/2025 Results Follow-Up [facility] & PEDS [address] [place] [address] Karen Rhodes MD Culture, Urine, Routine 04/20/2025 Results Follow-Up [facility] MED & PEDS [address] [place] [address] Viviane Casas RN Basic Metabolic Panel, Hepatic Function Panel, Urinalysis, Complete, with Reflex to Culture 04/19/2025 10:00 AM EDT Office Visit [facility] MED [facility] PEDS [address] [place] [address] Karen Rhodes MD Schizoaffective disorder, unspecified type (HCC) (Primary Dx); Single subsegmental pulmonary embolism without acute cor pulmonale (CMS/HCC) (HCC); Swelling of lower limb; Encounter for screening mammogram for malignant neoplasm of breast; Other acute pulmonary embolism without acute cor pulmonale (HCC); Screening for colon cancer 04/19/2025 Orders Only [facility] MED & PEDS [address] [place] [address] Karen Rhodes MD Transaminitis (Primary Dx); Elevated alkaline phosphatase level 04/19/2025 Travel 04/18/2025 Telephone [facility] MED & PEDS [address] [place] [address] Tiffany Crow MD Chart Prep 04/16/2025 Telephone [facility] MED [facility] PEDS [address] [place] [address] Tiffany Crow MD verbal order from Last [...] EDT 04/19/2025 4:34 PM EDT Comment:UACC Narrative [facility] - 04/21/2025 10:03 AM EDT Urine Culture Report Result Urine Culture 50,000 to 100,000 cfu/ml Urine Culture Mixed bacterial jorge characteristic of Urine Culture urogenital contamination. Specimen Source: Urine clean catch Karen Rhodes MD LAB MICROBIOLOGY - GENERAL ORDERABLES Final Result [facility] [address] [place] [address] [phone] * (ABNORMAL) Urinalysis, Complete, with Reflex to Culture (04/19/2025 11:30 AM EDT) Color Urine Yellow [facility] Appearance Urine Clear [facility] PH 5.5 5.0 - 9.0 [facility] Glucose Urine UA Negative Negative mg/dL [facility] Urine Blood Negative Negative [facility] Specific [place] - Urine 1.010 1.005 - 1.025 [facility] Urine Protein Negative Neg-Trace mg/dL [facility] Urine Ketones Negative Negative mg/dL [facility] Nitrite Urine Negative Negative [facility] Leukocyte Esterase Urine Small (1+)(A) Negative [facility] RBC Urine 0-2 0 - 2 /HPF [facility] Urine WBC 11-20(A) 0 - 5 /HPF [facility] Urine Squamous Epithelial Cell 3-5 0 - 2 /HPF [facility] Urine Bacteria Trace None Seen [facility] Hyaline Casts, Urine 0-2 0 - 2 /LPF [facility] Urine 04/19/2025 11:3 0 AM EDT 04/19/2025 2:12 PM EDT Narrative [facility] - 04/19/2025 2:20 PM EDT [id number], Clean Catch us Karen Rhodes MD LAB URINE ORDERABLES Final Result Performing Organization Address [facility]/ZIP Co de Phone Number [facility] [address] [place] [address] [phone] * (ABNORMAL) Hepatic Function Panel (04/19/2025 10:59 AM EDT) Bilirubin, Total 0.2 0.0 - 1.0 mg/dL [facility] Bilirubin, Direct <0.2 0.0 - 0.5 mg/dL [facility] Aspartate Amino Transferase 30 5 - 31 U/L [facility] Alanine Aminotransferase 36(H) 0 - 31 U/L [facility] Total Protein 6.6 6.5 - 8.0 g/dL [facility] Albumin Level 3.7 3.5 - 5.0 g/dL [facility] Alkaline Phosphatase 132(H) 39 - 117 U/L [facility] Blood Venous blood specimen / Unknown 04/19/2025 10:59 AM EDT 04/19/2025 1:48 PM EDT Karen Rhodes MD LAB BLOOD ORDERABLES Final Result Performing Organization Address [facility] Co de Phone Number [facility] [address] [place] [phone] * Basic Metabolic Panel (04/19/2025 10:59 AM EDT) Pathologist [facility] Sodium 143 135 - 145 mmol/L [facility] Potassium 3.8 3.3 - 5.1 mmol/L [facility] Chloride 106 96 - 108 mmol/L [facility] Carbon Dioxide 29 22 - 29 mmol/L [facility] Anion Gap 12 12 - 20 [facility] Urea Nitrogen (BUN) 12 9 - 16 mg/dL [facility] Creatinine, Serum 0.73 0.5 - 1.4 mg/dL [facility] Estimated Glomerular Filt Rate >60 [facility] Comment:Chronic Kidney Disea se: Estimated GFR < 60 mL/min/[id number] Kidney Disease: Estimated GFR < 15 mL/min/1.73m2 Glucose 104 60 - 115 mg/dL [facility] Calcium 9.1 8.4 - 10.2 mg/dL [facility] Blood Venous blood specimen / Unknown 04/19/2025 10:59 AM EDT 04/19/2025 1:48 PM EDT us Karen Rohdes MD LAB BLOOD ORDERABLES Final Result [facility] [address] [place] [address] [phone] * Pap Smear (06/27/2024 12:00 AM EST) Swab Cervix uteri structure / Unknown 06/27/2024 06/29/2024 6:10 AM EST Narrative [facility] - 07/03/2024 10:39 AM EST ----- ------- Name: Jhon Celaya Age/Sex: 63/F : 1960 Unit#: [id number] Attend Dr: Jen Link MD Re06/29/24 Status: DEP REF Location: HO.LNP Disch: ----- ------- SPEC : [id number] RECD: 06/29/24 STATUS: TANIYA MORRISON NUM: [id number] SHASHA: 06/27/240000 SUBM DR: Jen Link MD [...] Link MD LAB CYTOLOGY ORDERABLES Final Result [facility] [address] [place] [address] [phone] * (ABNORMAL) Lipid Panel, Standard (06/07/2024 9:56 AM EST) Triglycerides 190(H) <150 mg/dL [facility] Comment:Desirable Triglyceri de: less than 150 mg/dLBorderline High Triglyceride 150-199 mg/dLHigh Triglyceride: 200-499 mg/dLVery High Triglyceride: greater than or equal to 5OO mg/dL Cholesterol 247(H) <200 mg/dL [facility] Comment:Desirable Cholestero l: less than 200 mg/dLBorderline High Cholesterol: 200-239 mg/dLHigh Cholesterol: greater than 239 mg/dL LDL Cholesterol Calculated 156(H) <100 mg/dL [facility] Comment:Desirable LDL: less than 100 mg/dLNear Optimal/Above Optimal LDL: 110- 129 mg/dLBorderline High LDL: 130-159 mg/dLHigh LDL: 160-189 mg/dLVery High LDL: greater than or equal to 190 mg/dL HDL Cholesterol 53 >40 mg/dL [facility] Comment:Desirable HDL: great er than 40 mg/dL Note: This HDL assay may give artificially low results in patients with liver disease. Blood Venous blood specimen / Unknown 06/07/2024 9:56 AM EST 06/07/2024 2:05 PM EST us Tiffany Crow MD LAB BLOOD ORDERABLES Final Resul t [facility] [address] [place] [address] [phone] from Last 3 Months or Most Recently Relevant to Health [place] [address] MEDICARE Member Subscriber Plan / Payer (Ef fective 2024-Present) Name:Jhon Celaya Member ID:[id number] Relation to Subscriber:Self Name:Jhon Celaya Subscriber ID:[id number] Payer ID:STATE Group ID:Not on file Type:Medicare Address: [facility] [address] [place] [address] [place] [address] DENTAL - HSN FULL (MEDICAID) Care Teams Chief Nuclear Medicine Technologist Relationship Specialty Start Date End Date Garett Hamilton CNP [address] [place] [address] ABHINAV BOLAÑOS [address] PCP - General Family Medicine 05/07/25 [facility] 04/18/25
--- OUTSIDE RECORDS SUMMARY | 2025-06-08 20:00 | XMS_ITS | Encounter Summary ---
Author Organization [employer] Address 75 [facility] 7t [place] [address] Care Team Providers Care Supervisor Home Restoration Service Name Role Phone Garett Hamilton ART STUDIO TEACHER Primary Care Provider [phone] Reason for Visit * Reason Comments Med Refill Encounter Details Date Type Department Care Team ([facility] Contact Info) Description 05/22/2025 Refill [facility] CHC MED & PEDS [address] [place] [address] Karen Rhodes MD 505 [place] [address] Social History Tobacco Use Types Packs/Day Years [...] as of this encounter Care Teams Supervisor Home Restoration Service Relationship Specialty Start Date End Date Garett Hamilton CNP [address] [place] [address] PCP - General Family Medicine 05/07/25 Jelani [facility] 04/18/25 documented as of this encounter
--- NOTE | 2025-06-08 20:05 | PC.NURSE ---
Back Charting: This RN was made aware of patients situation on arrival to ED by RN that was triaging pt, per that RN she felt she would be safer and more appropriate in the POD, Génesis RN brought pt over to POD, Primary POD RN Olga Lidia aware. At this time this RN was told by Olga Lidia and Génesis LAL that pt continued to sit in 7 and refuse to talk with staff, to get changed over and or to do anything at time of pt being brought to POD. This RN talked with staff in POD who wanted to give her a couple of minutes and would angoon back, all staff and security aware. At this time she was not lashing out at staff/ attempting to leave, she was just refusing to verbally answer staff, refusing to foreign exchange trader, and refusing to interact with staff members. This RN touched base with MD Mathur approx around 1830 to discuss plan going forward with pt, pt was currently sectioned 12 by PD for refusing to take her medications at the half-way, it was unclear if the pt had an active [place] order or not. It was decided at that time that medications were ordered in [facility] for pt to be IM'd, the plan in place with this RN//Olga Lidia LAL was to get through shift change, allow the night RN to attempt one more time to get pt to foreign exchange trader, at that time Olga Lidia to call correction to find out if pt does have current Bharat's order or not. did not want to IM patient until we had all of the information. At this time if there is an active Bharat's order, pt continued to refuse to foreign exchange trader, that she would be moved to a different room in the POD receive IM medications so staff could complete her foreign exchange trader, and come up with further plan. This RN gave studio operations engineer in charge off to Tana RN, she is aware of current plan in place. Night RN coming into POD also aware of plan. At this time awaiting further directions.
[2025-06-08] MEDS: OLANZapine 10 MG VIAL 5 MG IM (20:12)
--- NOTE | 2025-06-08 20:25 | MHC.EDTECH ---
PT SAT UNCHANGED IN POD FROM 1633 UNTIL 2024 WHEN SHE WAS MEDICATED PER SEP. PT AGITATED AND PERSISTENT WITH NOT CHANGING OVER. ONCE MEDICATIONS WERE ADMINISTERED PT WAS GUIDED TO BATHROOM BY T/W TO CATEGORY CONSULTANT. PT SUCCESSFULLY CHANGED OVER. HALI GALDAMEZ.
[2025-06-08 20:42] VITALS: BP 137/81; PULSE 105; RESP 20; TEMP 36.6; O2SAT 94
[2025-06-08 20:57] LABS: Appearance Urine Clear; Glucose Urine UA Negative (Negative); PH 5.5 (5.0-9.0); Specific Gravity - Urine 1.025 (1.005-1.025); UMIC TRIGGER UA YES
[2025-06-08 21:06] LABS: Cannabinoid Screen Urine Not Detected (Not Detect)
[2025-06-08 21:14] LABS: COVID-19 Test Negative (Negative); IDNOW Serial# 6674DD1D
--- NOTE | 2025-06-09 00:39 | PC.NURSE ---
Late Entry for 06/08 20:12 - Assumed care at 1845. Report received that patient has been sitting unchanged since 16:34. Presents with increased paranoia and delusions. Patient was encouraged multiple times to participate in global climate change analyst per unit policy, but continued to refuse and became agitated. MD Mathur made aware, IM orders were readily available from last shift, plan to administer. With security present, patient medicated per SEP. No restraint required. Assisted to bathroom after IM and changed into POD attire. Diet order placed. 15 minute safety check placed. Plan for CARE TEAM f/u.
--- NOTE | 2025-06-09 05:57 | MHC.EDTECH ---
pt refused bloodwork at 0530. rn aware
--- NOTE | 2025-06-09 06:36 | MHC.EDTECH ---
Pt refused morning vitals
--- NOTE | 2025-06-09 08:16 | PC.NURSE ---
Assumed care, report received. Pt is awake, she is calm , staring out the window and the wall and denies wanting to eat breakfast, she states Im not going to sleep she does not answer direct questions only making statements.
[2025-06-09 08:56] VITALS: BP 138/92; PULSE 117; RESP 16; TEMP 36.3; O2SAT 95
--- NOTE | 2025-06-09 14:05 | MHC.EDTECH ---
Patient refusing vital signs at this time. RN aware.
--- NOTE | 2025-06-09 15:10 | MHC.CARE ---
Patient seen by CARE team for re-eval, as patient was seen by [facility] in the community. Continues to meet IPLOC.
[2025-06-09 15:41] LABS: Hematocrit 46.1 % (37.0-47.0); Hemoglobin 15.4 g/dl (12.0-16.0); Imm Gran Abs Auto 0.03 X10*3/uL (0.00-0.03); Imm Gran Pct Auto 0.3 % (0.0-0.4); Lymphocytes Absolute Auto 2.1 X10*3/uL (1.2-4.9); MANUAL DIFF FLAG NO; Mean Corpuscular HGB Conc 33.4 g/dl (31.0-35.0); Mean Corpuscular Hemoglobin 31.5 pg (27.0-33.0); Mean Corpuscular Volume 94.3 fL (80.0-98.0); NRBC Abs Auto 0.000 X10*3/uL (0.0-0.012); NRBC Pct Auto 0.0 /100WBC (0.0-0.2); Platelet Count 195 X10*3/uL (160-400); Red Blood Count 4.89 X10*6/uL (4.20-5.50); White Blood Count 11.3 X10*3/uL (4.8-10.8)
[2025-06-09 15:55] LABS: Alanine Aminotransferase 18 U/L (0-31); Albumin Level 4.2 g/dL (3.5-5.0); Alkaline Phosphatase 115 U/L (39-117); Anion Gap 17 (12-20); Aspartate Amino Transferase 33 U/L (5-31); Blood Urea Nitrogen 32 mg/dL (9-16); Calcium 10.0 mg/dL (8.4-10.2); Carbon Dioxide 26 mmol/L (22-29); Chloride 101 mmol/L (96-108); Creatinine Clr Calc Pharmacy 41.0; Estimated Glomerular Filt Rate 42; Potassium 3.2 mmol/L (3.3-5.1); Sodium 141 mmol/L (135-145); Total Protein 7.5 g/dL (6.5-8.0)
--- NOTE | 2025-06-09 16:20 | PHA.MEDREC ---
Pharmacy Consult ? Medication Reconciliation Pharmacy has completed the medication reconciliation.Med rec complete, spoke to RN at [facility] shelter
[2025-06-09 16:43] LABS: Acetaminophen LAB < 3 mcg/mL (<30); Salicylate < 5.0 mg/dL (15-30)
--- NOTE | 2025-06-09 18:19 | PC.NURSE ---
Pt comes out of her room throughout the shift, she asks to have 3 security guards to tell her the time. She asks to sign her house papers. She is given her medications, it takes her 10 min to talk about the pills and that she has a UTI, she is educated about her need for the antibiotic. She is given dinner, she drinks the milk only at this time.
[2025-06-09 21:13] VITALS: BP 142/91; PULSE 125; RESP 17; TEMP 35.8; O2SAT 98
[2025-06-09] MEDS: Potassium Chloride ER 20 MEQ TAB.ER.PRT PO (21:17)
--- NOTE | 2025-06-09 22:10 | PC.NURSE ---
Assumed care at 1845. Patient presents with flat affect and blank stare. Long pauses of speech and incomplete sentences. Took this RN 50 minutes in total for medication administration. Required multiple prompting and verbal reassurance. Assisted with taking PO medications and sips of water d/t tremor. Refused PO Seroquel and stated This dose doesn't work for me. HS scheduled Propranolol held d/t patient listed allergy. Wang made aware. Patient was incontinent of stool and urine x1. Given new hospital attire, but was resistant on handing over soiled undergarments. Able to perform ADL's independently. When questioned, patient became irritable and stated I need you and everyone to leave me alone. Provided quiet space. [address] checks in [address]. Plan of care ongoing.
--- NOTE | 2025-06-09 22:47 | PC.NURSE ---
Unable to pass HS scheduled Amantadine. Awaiting medication to be delivered by pharmacy.
[2025-06-10] VITALS (10 sets, daily range): BP systolic 101–152; BP diastolic 48–93; PULSE 89–147; RESP 12–22; TEMP 36.4–38.2; O2SAT 93–95
--- NOTE | 2025-06-10 06:19 | PC.NURSE ---
Adherent to AM scheduled Keflex and Omeprazole.
--- NOTE | 2025-06-10 07:14 | PC.NURSE ---
Assumed care, report received. Pt is awake, she sits in a chair in the hallway and does not answer questions. She is brought breakfast with very little intake.
[2025-06-10] MEDS: Potassium Chloride Packet 20 MEQ PACKET 40 MEQ PO (09:47)
--- NOTE | 2025-06-10 09:51 | PC.NURSE ---
Pt is observed to be on her knees in the bathroom, she is alert, calm and looks up at staff. She is asked if she fell. She states she thinks so. Pt is assessed, No injuries are noted, her knees are not red, she denies pain. Her pants ore off and on the floor with a smudge of stool. Pts bottom is cleaned, she is assisted to her feet and pants put on. She is assisted back to bed. She is re-assessed and the MD. Méndez is notified. Pts VSS, no redness or obvious injuries noted. Pt does have fingernail scratch del angel to the back of her ankles and on her Rt. butt cheek. She lays down for awhile. She is brought her medications some are crushed and a straw is given for medications only. she is given 40meq of Potassium for a K of 3.2. Pt has noted swelling to bilat. legs. Her breakfast is heated up and she eats 25% of the breakfast sandwich.
--- NOTE | 2025-06-10 13:36 | PC.NURSE ---
Pt has had 2 episodes of diarrhea. Pt is just noted to be diaphoretic, pale, HR 146 BP 152/88 POC 180 MD Méndez and neon tube pumper notified. Plan to trans to the main ED.
[2025-06-10 13:39] LABS: Glucose, Whole Blood 180 mg/dL (60-115)
[2025-06-10 14:34] LABS: Glucose, Whole Blood 172 mg/dL (60-115)
[2025-06-10 14:49] LABS: Alanine Aminotransferase 18 U/L (0-31); Albumin Level 4.1 g/dL (3.5-5.0); Alkaline Phosphatase 98 U/L (39-117); Anion Gap 17 (12-20); Aspartate Amino Transferase 36 U/L (5-31); Blood Urea Nitrogen 34 mg/dL (9-16); Calcium 9.3 mg/dL (8.4-10.2); Carbon Dioxide 22 mmol/L (22-29); Chloride 107 mmol/L (96-108); Creatinine Clr Calc Pharmacy 46.9; Estimated Glomerular Filt Rate 50; Potassium 4.0 mmol/L (3.3-5.1); Sodium 142 mmol/L (135-145); Total Protein 7.6 g/dL (6.5-8.0)
[2025-06-10] MEDS: iohexoL 350 MG/ML 100 ML INFUS..BTL IV (15:43)
[2025-06-10 15:58] LABS: Resp Syncy Virus RNA Qual PCR NEGATIVE (Negative); SARS COV2 PCR INHOUSE NEGATIVE (Negative)
[2025-06-10 16:26] LABS: Reflex Lactate? Lactic Acid Added
--- NOTE | 2025-06-10 16:48 | MHC.EDTECH ---
About 1400, the Patient was incontinent of stool x3. She was altered, diaphoretic, and more shaky. Nurse was told and patient went to the main to get evaluated
[2025-06-10 17:03] LABS: ~Lactic Acid-LAB USE ONLY 1.3 mmol/L (0.5-2.0)
--- NOTE | 2025-06-10 18:49 | PC.NURSE ---
Patient has been calm and cooperative IV 20G in Left hand Patient tachycardic at times but has been [address] rectal temp 99.8 CXR = no acute findings ABD CT = no acute findings Patient needs assistance with meals Plan of care on going
--- NOTE | 2025-06-10 19:05 | PC.NURSE ---
this RN assumed care of this pt @1900, pt noted to be sitting upright eating supper calm and cooperative, sitter at the bedside, pt is connected to cardiac monitoring, call feliz within reach for safety, pt appears to be in apparent distress
[2025-06-10 19:38] LABS: Appearance Urine Clear; Glucose Urine UA Negative (Negative); PH 6.5 (5.0-9.0); Specific Gravity - Urine >= 1.030 (1.005-1.025)
[2025-06-11] VITALS (9 sets, daily range): BP systolic 100–122; BP diastolic 53–83; PULSE 74–79; RESP 16–21; TEMP 36.7–36.9; O2SAT 94–98
--- NOTE | 2025-06-11 10:57 | MHC.EDTECH ---
incon of stoolx 2. care given, assist to bedside commode. urine/stool sample obtained.
[2025-06-11 10:58] LABS: Appearance Urine Cloudy; Glucose Urine UA Negative (Negative); PH 6.5 (5.0-9.0); Specific Gravity - Urine >= 1.030 (1.005-1.025); UMIC TRIGGER UACC YES
[2025-06-11 11:08] LABS: UACC Culture Trigger YES
--- NOTE | 2025-06-11 11:40 | PC.NURSE ---
Patient sleeping at this time. Respirations even/unlabored. No acute distress. Stool specimen sent earlier, results pending. Sitter remains at bedside. Care ongoing by this RN.
[2025-06-11 11:42] LABS: CDiff Gene PCR NEGATIVE (Negative)
--- NOTE | 2025-06-11 17:29 | MHC.EDTECH ---
Patient inc stool therefore patient changed and repositioned
--- NOTE | 2025-06-11 19:40 | PC.NURSE ---
Patient sitting upright, watching TV. Medicated per provider orders. Vital signs stable. Care ongoing by this RN.
--- NOTE | 2025-06-11 21:16 | PC.NURSE ---
Amantadine & Zyprexa PO unavailable in ED pyxis. Requested from pharmacy, awaiting receipt. Confirmed receipt by pharmacist Merle Villalobos. Sitter remains at bedside. Denies complaints at this time. NSR on engineer station mainline. Care ongoing by this RN.
[2025-06-12] VITALS (8 sets, daily range): BP systolic 108–119; BP diastolic 59–71; PULSE 68–79; RESP 13–20; TEMP 35.7–36.8; O2SAT 92–95
--- NOTE | 2025-06-12 00:01 | PC.NURSE ---
Took over care from Sharan Stock at 23:00m pt sleeping at this time, no sign of distress, pt on 1:1.
--- NOTE | 2025-06-12 01:14 | PC.NURSE ---
pt assisted to the bathroom by HONG Lantigua
--- NOTE | 2025-06-12 02:42 | PC.NURSE ---
pt sleeping and remains on a 1:1
[2025-06-12 07:12] LABS: E. coli EAEC Not Detected (Not Detect.); E. coli EPEC Not Detected (Not Detect.); E. coli ETEC Not Detected (Not Detect.); E. coli STEC Not Detected (Not Detect.); Shigella sp./EIEC Not Detected (Not Detect.)
--- NOTE | 2025-06-12 08:22 | PC.NURSE ---
Attempted to medicate pt with morning medications. Pt resting quietly on stretcher with eyes closed, respirations even and unlabored. Will reattempt to medicate pt when she is alert. 1:1 sitter remains at bedside. Call feliz within reach, all needs met at this time.
--- NOTE | 2025-06-12 14:08 | PC.NURSE ---
two am meds (amantidine and cariprazine) not available- pharm notified twice, still not here.
--- NOTE | 2025-06-12 14:09 | PC.NURSE ---
Pt A&O X4 VSS NAD, tolerating PO well, Pt with no complaints at this time.
--- NOTE | 2025-06-12 20:01 | PC.NURSE ---
Assumed care at 1999. Patient is calm and cooperative. Ambulating independently. IV access to L hand removed. Patient has Norovirus, on droplet precautions. Denies current pain/discomfort. Provided blankets. Refused liquids/snacks. Will monitor for safety.
--- NOTE | 2025-06-12 21:04 | PC.NURSE ---
Medicated per MAR. Requested food/snacks. Incontinent of stool x1. Provided hospital attire. Allowed to shower.
--- NOTE | 2025-06-13 | ECG_ITS ---
Test Reason : R/O PROLONGED QT Blood Pressure : */* mmHG Vent. Rate : 81 BPM Atrial Rate : 81 BPM P-R Int : 164 ms QRS Dur : 82 ms QT Int : 372 ms P-R-T Axes : 44 58 46 degrees QTcB Int : 432 ms Normal sinus rhythm Normal ECG When compared with ECG of 19-Feb-2023 16:22, No significant change was found Referred By: Maggie Castano Electronically Signed By: AUBREY FARNSWORTH MD
--- NOTE | 2025-06-13 07:45 | PC.NURSE ---
Assumed care of patient at 0645, patient appears to be in no apparent distress this am, resting in bed, respirations even and unlabored. Continue plan of care for tasha IPLOC
[2025-06-13 10:07] VITALS: BP 108/53; PULSE 88; RESP 16; TEMP 36.4; O2SAT 96
[2025-06-13 11:02] LABS: Alanine Aminotransferase 23 U/L (0-31); Albumin Level 3.7 g/dL (3.5-5.0); Alkaline Phosphatase 101 U/L (39-117); Anion Gap 9 (12-20); Aspartate Amino Transferase 29 U/L (5-31); Blood Urea Nitrogen 18 mg/dL (9-16); Calcium 9.1 mg/dL (8.4-10.2); Carbon Dioxide 32 mmol/L (22-29); Chloride 105 mmol/L (96-108); Creatinine Clr Calc Pharmacy 75.9; Estimated Glomerular Filt Rate > 60; Potassium 3.5 mmol/L (3.3-5.1); Sodium 142 mmol/L (135-145); Total Protein 6.7 g/dL (6.5-8.0)
--- NOTE | 2025-06-13 11:22 | PC.NURSE ---
Pt continues to rest in bed, no apparent distress is noted. intermittently awakens to use the bathroom, denies diarrhea at this time
[2025-06-13 13:21] VITALS: BMI 30.9
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
[2025-06-13 20:00] VITALS: BP 116/69; PULSE 94; RESP 16; TEMP 37.2; O2SAT 96
[2025-06-13 20:29] VITALS: BP 116/69; PULSE 94
[2025-06-13] MEDS: OLANZapine ODT 10 MG TAB.RAPDIS 20 MG TRANSLINGU (20:30)
[2025-06-14 08:06] LABS: Alanine Aminotransferase 16 U/L (0-31); Albumin Level 3.3 g/dL (3.5-5.0); Alkaline Phosphatase 86 U/L (39-117); Anion Gap 10 (12-20); Aspartate Amino Transferase 23 U/L (5-31); Blood Urea Nitrogen 13 mg/dL (9-16); Calcium 8.4 mg/dL (8.4-10.2); Carbon Dioxide 29 mmol/L (22-29); Chloride 104 mmol/L (96-108); Cholesterol 139 mg/dL (<200); Creatinine Clr Calc Pharmacy 85.4; Estimated Glomerular Filt Rate > 60; HDL Cholesterol 33 mg/dL (>40); Potassium 3.6 mmol/L (3.3-5.1); Sodium 139 mmol/L (135-145); Total Protein 6.0 g/dL (6.5-8.0); Triglycerides 100 mg/dL (<150)
[2025-06-14 08:17] VITALS: BMI 31.7
[2025-06-14 08:22] LABS: Thyroid Stimulating Hormone 0.05 uIU/mL (0.32-4.0)
[2025-06-14 08:30] VITALS: BP 112/61; PULSE 110; RESP 16; TEMP 36.8; O2SAT 93
[2025-06-14 08:39] VITALS: BP 112/61; PULSE 110; RESP 16; TEMP 36.8; O2SAT 93
--- NOTE | 2025-06-14 09:20 | P.CONHOSP_ITS ---
History of Present Illness Data of Consult Service Date: 06/14/25 Primary Care Provider: Karen Rhodes MD [facility] Reason for consult: Medical consult 64-year-old with a past medical history of hypertension, hyperlipidemia, PE, hyperprolactinemia, iatrogenic galactorrhea, thyroid nodule, early dementia, cognitive impairment, schizoaffective disorder bipolar type, catatonia. Patient was recently hospitalized at [facility] May 29 through the with altered mental status. Patient had a workup for possible seizure, MRI and EEG were negative. Her CT of the head and C-spine were negative. She has a known tremor her of her upper extremities. Patient was found to have an acute kidney injury which resolved with IV fluids related to likely starvation ketosis. On June 08 patient was evaluated by [facility] in the community for paranoid behavior, altered mentation and disorganized thinking. Also noted to have memory impairment. Presented to the ED and was medically cleared for admission to inpatient geriatric psych for further care and treatment. On exam she is eating 100% of her meal. Drinking. She has no medical concerns. Poor historian. Upon review of outside records, patient notably had a prolonged inpatient hospitalization stay from 12/08/2024 to 02/14/2025. Treated at that time for catatonia. Patient also noted to have a left thyroid nodule greater than 4.5 cm with recommendations for outpatient ultrasound. While in the ED patient was noted to be tachycardic with diarrhea, she had a sepsis workup due to noted lactic elevation with concerns for infection in her abdomen. Blood cultures with no growth, urine culture with no growth, chest x-ray negative, COVID, flu, RSV negative she was found to have norovirus. She has recovered from norovirus. Review of Systems 2 Review of Systems: She denies shortness of breath or chest pain. Denies abdominal pain. [facility] Medical History Schizoaffective disorder Social History Household Members: Other Housing: Other Do you presently have visiting nurse or other home services: No Alcohol intake: never Comment: on 5 minute checks Patient Tobacco Use Status: Never used Tobacco Currently Displaying Signs/Symptoms of Drug Intoxication Withdrawal: No Do you feel safe in your current relationship?: No Current Relationship Advance Directives: No Advance Directives Information Provided: No Suicidal Behavior: Self-injurious behavior Current/Past Psychiatric Disorders: Psychotic disorder Do you have thoughts of harming others: None Do you have a plan to hurt others: No Plan Recently lost weight without trying: No Nutrition Risks: No Nutritional Risk Patient : No : No service: No Sexual orientation: Straight/Heterosexual Meds Allergies Allergy/AdvReac Type Severity Reaction Status Date / Time haloperidol (From Haldol) AdvReac Mild AGITATION Verified 06/08/25 17:06 propranolol AdvReac irregular Verified 06/08/25 17:06 heartbeat Active Medications: Current Medications Acetaminophen (Acetaminophen 325 Mg Tablet) 650 mg PO Q6H PRN PRN Reason: Headache/Pain Mild Scale (1-3) Last Admin: 06/14/25 08:36 Dose: 650 mg Al Hydroxide/Mg Hydroxide (Magnesium Hydrox/Alum Hydrox 30 Ml Oral.Susp) 30 ml PO Q6H PRN PRN Reason: Heartburn/Nausea Amantadine HCl (Amantadine Hcl 100 Mg Capsule) 100 mg PO BID [facility] Last Admin: 06/14/25 08:37 Dose: 100 mg Apixaban (Apixaban 5 Mg Tablet) 5 mg PO BID [facility] Last Admin: 06/14/25 08:38 Dose: 5 mg Cariprazine (Cariprazine Hcl 3 Mg Capsule) 6 mg PO DAILY [facility] Last Admin: 06/14/25 08:37 Dose: 6 mg Cephalexin HCl (Cephalexin 500 Mg Capsule) 500 mg PO Q12H [facility] Last Admin: 06/14/25 05:59 Dose: 500 mg Divalproex Sodium (Divalproex Sodium Er 500 Mg Tab.Er.24h) 500 mg PO BID [facility] Last Admin: 06/14/25 08:38 Dose: 500 mg Hydroxyzine HCl (Hydroxyzine Hcl 25 Mg Tablet) 25 mg PO Q6H PRN PRN Reason: mild anxiety Loperamide HCl (Loperamide Hcl 2 Mg Capsule) 2 mg PO Q4H PRN PRN Reason: Loose Stool Magnesium Hydroxide (Milk Of Magnesia 30 Ml Oral.Susp) 30 ml PO DAILY PRN PRN Reason: Constipation Memantine (Memantine Hcl 5 Mg Tablet) 5 mg PO BID [facility] Last Admin: 06/14/25 08:37 Dose: 5 mg Olanzapine (Olanzapine Odt 10 Mg Tab.Rapdis) 20 mg TRANSLINGU BEDTIME [facility] Last Admin: 06/13/25 20:30 Dose: 20 mg Olanzapine (Olanzapine 10 Mg Vial) 10 mg IM DAILY PRN PRN Reason: if refuses oral per Johan Omeprazole (Omeprazole 20 Mg Capsule.Dr) 20 mg PO DAILY@0630 [facility] Last Admin: 06/14/25 08:40 Dose: 20 mg Propranolol HCl (Propranolol Hcl 10 Mg Tablet) 10 mg PO BID [facility]; Protocol Last Admin: 06/14/25 08:40 Dose: 10 mg Sertraline HCl (Sertraline Hcl 100 Mg Tablet) 100 mg PO BEDTIME [facility] Last Admin: 06/13/25 20:29 Dose: 100 mg Trazodone HCl (Trazodone Hcl 50 Mg Tablet) 50 mg PO BEDTIME MRX1 PRN PRN Reason: Insomnia Home Medications ?Medication ?Instructions ?Recorded ?Confirmed ?Last Taken ?Type amantadine HCl 100 mg capsule 100 mg PO BID 06/09/25 1 08/10/24 Unknown History apixaban 5 mg tablet (Eliquis) 5 mg PO BID 06/09/25 Unknown History cariprazine 6 mg capsule (Vraylar) 6 mg PO DAILY 06/0906/09/25 Unknown History divalproex 500 mg tablet,extended 500 mg PO BID 06/09/25 Unknown History release 24 hr furosemide 40 mg tablet 40 mg PO DAILY 06/09/2512/27 Unknown History memantine 5 mg tablet 5 mg PO BID 06/09/25 5 Unknown History olanzapine 20 mg tablet 20 mg PO BEDTIME 06/09/25 Unknown History pantoprazole 40 mg tablet,delayed 40 mg PO DAILY 06/0906/09/25 Unknown History release propranolol 10 mg tablet 10 mg PO BID 06/09/25 Unknown History quetiapine 25 mg tablet 25 mg PO BEDTIME 06/09/25 Unknown History sertraline 50 mg tablet 150 mg PO BEDTIME 06/09/25 1 08/10/24 Unknown History Physical Exam 2 Vital Signs and Narrative: Vital Signs: Last Vital Signs Temp 98.2 F 06/14/25 08:39 Pulse 110 H 06/14/25 08:39 Resp 16 06/14/25 08:39 BP 112/61 06/14/25 08:39 Pulse Ox 93 06/14/25 08:39 O2 Del Method Room Air 06/14/25 08:39 BMI result Body Mass Index 31.7 Alert and oriented X3, calm and cooperative. Answers simple questions. Poor historian. Neuro: CN II-X11 intact, no deficits, visual acuity intact EYES: PERRLA, EOM intact ENT: Hearing intact, MMM Cardiac: S1 S2 RRR, No ectopy Pulmonary: Lungs clear to auscultation, No increased WOB. Abdominal: BS active in all 4 quadrants, no guarding or tenderness MSK: Strength 5/5 upper and lower extremities : Deferred Extremities: No edema in lower extremities Psych: Mood stable, Quiet and cooperative. Skin: Warm and dry, Intact Results Labs 06/09/25 15:36 06/14/25 07:35 Labs: Laboratory Results - last 24 hr 06/13/25 06/14/25 10:37 07:35 Anion Gap 9 L 10 L Estim Creat Clear Calc 75.9 85.4 Estimated GFR > 60 > 60 Random Glucose 107 101 Estimat Average Glucose 131 Hemoglobin A1c % 6.2 H Calcium 9.1 8.4 D Total Bilirubin 0.2 0.2 AST 29 23 ALT 23 16 Alkaline Phosphatase 101 86 Total Protein 6.7 6.0 L Albumin 3.7 3.3 L Triglycerides 100 Cholesterol 139 LDL Cholesterol, Calc 86 HDL Cholesterol 33 L TSH 0.05 L Assessment and Plan (1) Pulmonary embolism: Status: Acute (2) HTN (hypertension): Status: Acute Plan 64-year-old patient with past medical history as listed below presented [facility] from [facility] with altered mental status, paranoia and behavioral changes. Patient is now admitted to inpatient psychiatric care for stabilization. Schizoaffective disorder/paranoia/AMS/cognitive impairment Treatment per psychiatric team Pulmonary embolism Diagnosed 12/08/2024 continue Eliquis Hypertension/bilateral leg edema Resume Lasix as blood pressure tolerates History of acute kidney injury Notably due to poor p.o. intake Creatinine on discharge from [facility] 0.74 Continue to follow weekly Resume Lasix as blood pressure tolerates Appears euvolemic on exam Thyroid nodule Patient noted to have an incidental left thyroid nodule greater than 4.5 cm Recommended to have outpatient follow up Patient's TSH on admit 0.05 with a free T4 of 1.17 Recheck in 2 weeks. Essential tremor Continue propranolol Patient with a recent negative workup for seizure with a negative MRI of the negative EEG. 03/2025 CT head and spine negative 03/2025 GERD Continue omeprazole 35 Time spent reviewing patient chart, outside records, lab results, imaging, ED notes, ancillary notes, discussion with nursing, examination and documentation. Thank you for allowing me to participate in the care of this patient. Will follow with you, please notify medical provider with any changes in condition or concerns.
[2025-06-14 09:29] LABS: Free T4 (Free Thyroxine) 1.17 ng/dL (0.71-1.85)
[2025-06-14 10:49] VITALS: PULSE 90
--- NOTE | 2025-06-14 16:03 | HO.PSYCHPN ---
Subjective Subjective Date of Service: 06/14/25 Reason For Visit: psychosis Subjective Notes: Section 12B Interim History: Pt slept through the night. She reports she feels less anxious today. She seems more open about voices telling this brief writer that voices were telling that she is bad. Worried about her safety and not knowing who to trust. She denies SI/HI. She has been taking medications as prescribed. pending collateral information. Mental Status Exam Mental Status Exam Narrative: Appearance: wearing hospital gown, fair hygiene, in NAD Behavior: cooperative, guarded at times Psychomotor: bilat action tremors, Speech: clear, some delayed in response, soft tone, spontaneous TP: thought blocking at times TC: worried about her safety Mood: tired Affect: guarded, suspicious SI: passive, denies plan or intent but does report some degree of wishing she would , but not cause by her own harm to self thinks this would not be good for God. HI: denies VH/AH: appears internally preoccupied as at times would seemed like hearing voices affecting her attention, repeating questions. Delusions: paranoid delusions but not fully forthcoming to extend of it. Insight/judgment: impaired x 2. Memory/cog: alert, oriented x 3. not orientation as she thinks powerful people behind her being in the hospital. Diagnostics Vital Signs (24Hr): Vital Signs - 24 hr 06/13/25 20:00 06/13/25 20:29 06/14/25 08:30 Temperature 99.0 F 98.2 F Pulse Rate 94 94 110 H Respiratory Rate 16 16 Blood Pressure 116/69 116/69 112/61 Pulse Oximetry 96 93 Oxygen Delivery Method Room Air Room Air 06/14/25 08:39 06/14/25 10:49 Temperature 98.2 F Pulse Rate 110 H 90 Respiratory Rate 16 Blood Pressure 112/61 Pulse Oximetry 93 Oxygen Delivery Method Room Air BMI result Body Mass Index 31.7 Labs 06/09/25 15:36 06/14/25 07:35 Labs: Laboratory Results - last 48 hr 06/13/25 06/14/25 10:37 07:35 Sodium 142 139 Potassium 3.5 3.6 Chloride 105 104 Carbon Dioxide 32 H 29 Anion Gap 9 L 10 L BUN 18 H 13 Creatinine 0.68 0.67 Estim Creat Clear Calc 75.9 85.4 Estimated GFR > 60 > 60 Random Glucose 107 101 Estimat Average Glucose 131 Hemoglobin A1c % 6.2 H Calcium 9.1 8.4 D Total Bilirubin 0.2 0.2 AST 29 23 ALT 23 16 Alkaline Phosphatase 101 86 Total Protein 6.7 6.0 L Albumin 3.7 3.3 L Triglycerides 100 Cholesterol 139 LDL Cholesterol, Calc 86 HDL Cholesterol 33 L TSH 0.05 L Free T4 1.17 Medications Medications Current Medications Acetaminophen (Acetaminophen 325 Mg Tablet) 650 mg PO Q6H PRN PRN Reason: Headache/Pain Mild Scale (1-3) Last Admin: 06/14/25 08:36 Dose: 650 mg Al Hydroxide/Mg Hydroxide (Magnesium Hydrox/Alum Hydrox 30 Ml Oral.Susp) 30 ml PO Q6H PRN PRN Reason: Heartburn/Nausea Amantadine HCl (Amantadine Hcl 100 Mg Capsule) 100 mg PO BID [facility] Last Admin: 06/14/25 08:37 Dose: 100 mg Apixaban (Apixaban 5 Mg Tablet) 5 mg PO BID [facility] Last Admin: 06/14/25 08:38 Dose: 5 mg Cariprazine (Cariprazine Hcl 3 Mg Capsule) 6 mg PO DAILY [facility] Last Admin: 06/14/25 08:37 Dose: 6 mg Divalproex Sodium (Divalproex Sodium Er 500 Mg Tab.Er.24h) 500 mg PO BID [facility] Last Admin: 06/14/25 08:38 Dose: 500 mg Hydroxyzine HCl (Hydroxyzine Hcl 25 Mg Tablet) 25 mg PO Q6H PRN PRN Reason: mild anxiety Loperamide HCl (Loperamide Hcl 2 Mg Capsule) 2 mg PO Q4H PRN PRN Reason: Loose Stool Magnesium Hydroxide (Milk Of Magnesia 30 Ml Oral.Susp) 30 ml PO DAILY PRN PRN Reason: Constipation Memantine (Memantine Hcl 5 Mg Tablet) 5 mg PO BID [facility] Last Admin: 06/14/25 08:37 Dose: 5 mg Olanzapine (Olanzapine Odt 10 Mg Tab.Rapdis) 20 mg TRANSLINGU BEDTIME [facility] Last Admin: 06/13/25 20:30 Dose: 20 mg Olanzapine (Olanzapine 10 Mg Vial) 10 mg IM DAILY PRN PRN Reason: if refuses oral per Johan Omeprazole (Omeprazole 20 Mg Capsule.Dr) 20 mg PO DAILY@0630 [facility] Last Admin: 06/14/25 08:40 Dose: 20 mg Propranolol HCl (Propranolol Hcl 10 Mg Tablet) 10 mg PO BID [facility]; Protocol Last Admin: 06/14/25 08:40 Dose: 10 mg Sertraline HCl (Sertraline Hcl 100 Mg Tablet) 100 mg PO BEDTIME [facility] Last Admin: 06/13/25 20:29 Dose: 100 mg Trazodone HCl (Trazodone Hcl 50 Mg Tablet) 50 mg PO BEDTIME MRX1 PRN PRN Reason: Insomnia Allergies Allergies Allergy/AdvReac Type Severity Reaction Status Date / Time haloperidol (From Haldol) AdvReac Mild AGITATION Verified 06/08/25 17:06 propranolol AdvReac irregular Verified 06/08/25 17:06 heartbeat Assessment & Plan Assessment & Plan (1) Schizoaffective disorder: Qualifiers: Schizoaffective disorder type: unspecified Qualified Code(s): F25.9 - Schizoaffective disorder, unspecified Status: Acute Code(s): F25.9 - Schizoaffective disorder, unspecified Plan Ms. Celaya is a 64 year-old woman with hx of schizoaffective disorder who was brought via EMS due to increase paranoia, left and was found hypothermic in the ED requiring bear hugger. Pt has Reilly which includes vraylar, olanzapine and invega sustenna. She is currently prescribed vrayla and olanzapine which apparently she was not taking. She continues to present with paranoid ideas, not fully forthcoming with extend of delusional content. We discussed fact that she has a Bharat's order, antipsychotic medication has to be enforced here on the unit. WIll continue olanzapine 20mg po qhs with back up IM if refuses oral of 10mg IM. Will continue vraylar. Pending additional collateral information from , prescriber. I do see that she was prescribed seroquel, which is not on reilly and at that point consider olanzapine is better option. PLAN 05/15 taking oral medical but has back IM. Seems less guarded. but continues to present with paranoid delusions and AH. BP low, tachycardia noted. TSH low, but free t4 wnl. seen by hospitalist. follow labs in 2 weeks (TSH/ free t4). continue olanzapine 20mg po qhs back IM olanzapine. Reason for continued inpatient stay Substantial Risk for: inability to function Time Spent With Patient Time: Total time managing care of this patient today ____ minutes.
--- NOTE | 2025-06-14 19:13 | HO.PSYCHPN ---
Subjective Subjective Reason For Visit: psychosis Mental Status Exam Mental Status Exam Narrative: Appearance: wearing hospital gown, fair hygiene, in NAD Behavior: cooperative, guarded at times Psychomotor: bilat action tremors, Speech: clear, some delayed in response, soft tone, spontaneous TP: thought blocking at times TC: worried about her safety Mood: tired Affect: guarded, suspicious SI: passive, denies plan or intent but does report some degree of wishing she would , but not cause by her own harm to self thinks this would not be good for God. HI: denies VH/AH: appears internally preoccupied as at times would seemed like hearing voices affecting her attention, repeating questions. Delusions: paranoid delusions but not fully forthcoming to extend of it. Insight/judgment: impaired x 2. Memory/cog: alert, oriented x 3. not orientation as she thinks powerful people behind her being in the hospital. Diagnostics Vital Signs (24Hr): Vital Signs - 24 hr 06/13/25 20:00 06/13/25 20:29 06/14/25 08:30 Temperature 99.0 F 98.2 F Pulse Rate 94 94 110 H Respiratory Rate 16 16 Blood Pressure 116/69 116/69 112/61 Pulse Oximetry 96 93 Oxygen Delivery Method Room Air Room Air 06/14/25 08:39 06/14/25 10:49 Temperature 98.2 F Pulse Rate 110 H 90 Respiratory Rate 16 Blood Pressure 112/61 Pulse Oximetry 93 Oxygen Delivery Method Room Air BMI result Body Mass Index 31.7 Labs 06/09/25 15:36 06/14/25 07:35 Labs: Laboratory Results - last 48 hr 06/13/25 06/14/25 10:37 07:35 Sodium 142 139 Potassium 3.5 3.6 Chloride 105 104 Carbon Dioxide 32 H 29 Anion Gap 9 L 10 L BUN 18 H 13 Creatinine 0.68 0.67 Estim Creat Clear Calc 75.9 85.4 Estimated GFR > 60 > 60 Random Glucose 107 101 Estimat Average Glucose 131 Hemoglobin A1c % 6.2 H Calcium 9.1 8.4 D Total Bilirubin 0.2 0.2 AST 29 23 ALT 23 16 Alkaline Phosphatase 101 86 Total Protein 6.7 6.0 L Albumin 3.7 3.3 L Triglycerides 100 Cholesterol 139 LDL Cholesterol, Calc 86 HDL Cholesterol 33 L TSH 0.05 L Free T4 1.17 Medications Medications Current Medications Acetaminophen (Acetaminophen 325 Mg Tablet) 650 mg PO Q6H PRN PRN Reason: Headache/Pain Mild Scale (1-3) Last Admin: 06/14/25 08:36 Dose: 650 mg Al Hydroxide/Mg Hydroxide (Magnesium Hydrox/Alum Hydrox 30 Ml Oral.Susp) 30 ml PO Q6H PRN PRN Reason: Heartburn/Nausea Amantadine HCl (Amantadine Hcl 100 Mg Capsule) 100 mg PO BID [facility] Last Admin: 06/14/25 08:37 Dose: 100 mg Apixaban (Apixaban 5 Mg Tablet) 5 mg PO BID [facility] Last Admin: 06/14/25 08:38 Dose: 5 mg Cariprazine (Cariprazine Hcl 3 Mg Capsule) 6 mg PO DAILY [facility] Last Admin: 06/14/25 08:37 Dose: 6 mg Divalproex Sodium (Divalproex Sodium Er 500 Mg Tab.Er.24h) 500 mg PO BID [facility] Last Admin: 06/14/25 08:38 Dose: 500 mg Hydroxyzine HCl (Hydroxyzine Hcl 25 Mg Tablet) 25 mg PO Q6H PRN PRN Reason: mild anxiety Loperamide HCl (Loperamide Hcl 2 Mg Capsule) 2 mg PO Q4H PRN PRN Reason: Loose Stool Magnesium Hydroxide (Milk Of Magnesia 30 Ml Oral.Susp) 30 ml PO DAILY PRN PRN Reason: Constipation Memantine (Memantine Hcl 5 Mg Tablet) 5 mg PO BID [facility] Last Admin: 06/14/25 08:37 Dose: 5 mg Olanzapine (Olanzapine Odt 10 Mg Tab.Rapdis) 20 mg TRANSLINGU BEDTIME [facility] Last Admin: 06/13/25 20:30 Dose: 20 mg Olanzapine (Olanzapine 10 Mg Vial) 10 mg IM DAILY PRN PRN Reason: if refuses oral per Johan Omeprazole (Omeprazole 20 Mg Capsule.Dr) 20 mg PO DAILY@0630 [facility] Last Admin: 06/14/25 08:40 Dose: 20 mg Propranolol HCl (Propranolol Hcl 10 Mg Tablet) 10 mg PO BID [facility]; Protocol Last Admin: 06/14/25 08:40 Dose: 10 mg Sertraline HCl (Sertraline Hcl 100 Mg Tablet) 100 mg PO BEDTIME [facility] Last Admin: 06/13/25 20:29 Dose: 100 mg Trazodone HCl (Trazodone Hcl 50 Mg Tablet) 50 mg PO BEDTIME MRX1 PRN PRN Reason: Insomnia Allergies Allergies Allergy/AdvReac Type Severity Reaction Status Date / Time haloperidol (From Haldol) AdvReac Mild AGITATION Verified 06/08/25 17:06 propranolol AdvReac irregular Verified 06/08/25 17:06 heartbeat Assessment & Plan Assessment & Plan (1) Pulmonary embolism: Status: Acute Code(s): I26.99 - Other pulmonary embolism without acute cor pulmonale (2) HTN (hypertension): Status: Acute Code(s): I10 - Essential (primary) hypertension Plan 64-year-old patient with past medical history as listed below presented to ED from retirement with altered mental status, paranoia and behavioral changes. Patient is now admitted to inpatient psychiatric care for stabilization. Schizoaffective disorder/paranoia/AMS/cognitive impairment Treatment per psychiatric team Pulmonary embolism Diagnosed 12/08/2024 continue Eliquis Hypertension/bilateral leg edema Resume Lasix as blood pressure tolerates History of acute kidney injury Notably due to poor p.o. intake Creatinine on discharge from [facility] 0.74 Continue to follow weekly Resume Lasix as blood pressure tolerates Appears euvolemic on exam Thyroid nodule Patient noted to have an incidental left thyroid nodule greater than 4.5 cm Recommended to have outpatient follow up Patient's TSH on admit 0.05 with a free T4 of 1.17 Recheck in 2 weeks. Essential tremor Continue propranolol Patient with a recent negative workup for seizure with a negative MRI of the negative EEG. 03/2025 CT head and spine negative 03/2025 GERD Continue omeprazole 35 Time spent reviewing patient chart, outside records, lab results, imaging, ED notes, ancillary notes, discussion with nursing, examination and documentation. Thank you for allowing me to participate in the care of this patient. Will follow with you, please notify medical provider with any changes in condition or concerns. Time Spent With Patient Time: Total time managing care of this patient today ____ minutes.
[2025-06-14 20:00] VITALS: BP 117/64; PULSE 96; RESP 16; TEMP 36.7; O2SAT 96
[2025-06-14] MEDS: OLANZapine ODT 10 MG TAB.RAPDIS 20 MG TRANSLINGU (20:29)
[2025-06-15 08:00] VITALS: BP 93/59; PULSE 112; RESP 16; TEMP 36.7; O2SAT 94
--- NOTE | 2025-06-15 10:28 | P.PNPSI_ITS ---
Subjective Subjective Date of Service: 06/15/25 Reason For Visit: psychosis Subjective Notes: Section 12B Interim History: Pt slept through the night. Pt reports hearing less voices but continues to hear them. She reports voices are telling her that she is being accused of crime and trial is coming soon. when asked about what is she being accused, she states I prefer not to disclose this information. This typewriter operator automatic asked if she did do what she is being accused of, she states I don't know, maybe. She denies SI/HI. She is mostly in her room. She reports no bowel movement but had loose stools d/t norovirus. BP low, enocuraged to take more fluids. Review of Systems Review of Systems She denies shortness of breath or chest pain. Denies abdominal pain. Mental Status Exam Mental Status Exam Narrative: Appearance: wearing hospital gown, fair hygiene, in NAD Behavior: cooperative, guarded at times Psychomotor: bilat action tremors, Speech: clear, some delayed in response, soft tone, spontaneous TP: thought blocking at times TC: worried about her safety Mood: tired Affect: guarded, suspicious SI: passive, denies plan or intent but does report some degree of wishing she would , but not cause by her own harm to self thinks this would not be good for God. HI: denies VH/AH: appears internally preoccupied as at times would seemed like hearing voices affecting her attention, repeating questions. Delusions: paranoid delusions but not fully forthcoming to extend of it. Insight/judgment: impaired x 2. Memory/cog: alert, oriented x 3. not orientation as she thinks powerful people behind her being in the hospital. Diagnostics Vital Signs (24Hr): Vital Signs - 24 hr 06/14/25 10:49 06/14/25 20:00 06/15/25 08:00 Temperature 98.1 F 98.1 F Pulse Rate 90 96 112 H Respiratory Rate 16 16 Blood Pressure 117/64 93/59 L Pulse Oximetry 96 94 Oxygen Delivery Method Room Air Room Air BMI result Body Mass Index 31.7 Labs 06/09/25 15:36 06/14/25 07:35 Labs: Laboratory Results - last 48 hr 06/13/25 06/14/25 10:37 07:35 Sodium 142 139 Potassium 3.5 3.6 Chloride 105 104 Carbon Dioxide 32 H 29 Anion Gap 9 L 10 L BUN 18 H 13 Creatinine 0.68 0.67 Estim Creat Clear Calc 75.9 85.4 Estimated GFR > 60 > 60 Random Glucose 107 101 Estimat Average Glucose 131 Hemoglobin A1c % 6.2 H Calcium 9.1 8.4 D Total Bilirubin 0.2 0.2 AST 29 23 ALT 23 16 Alkaline Phosphatase 101 86 Total Protein 6.7 6.0 L Albumin 3.7 3.3 L Triglycerides 100 Cholesterol 139 LDL Cholesterol, Calc 86 HDL Cholesterol 33 L TSH 0.05 L Free T4 1.17 Medications Medications Current Medications Acetaminophen (Acetaminophen 325 Mg Tablet) 650 mg PO Q6H PRN PRN Reason: Headache/Pain Mild Scale (1-3) Last Admin: 06/14/25 08:36 Dose: 650 mg Al Hydroxide/Mg Hydroxide (Magnesium Hydrox/Alum Hydrox 30 Ml Oral.Susp) 30 ml PO Q6H PRN PRN Reason: Heartburn/Nausea Amantadine HCl (Amantadine Hcl 100 Mg Capsule) 100 mg PO BID [facility] Last Admin: 06/15/25 08:36 Dose: 100 mg Apixaban (Apixaban 5 Mg Tablet) 5 mg PO BID [facility] Last Admin: 06/15/25 08:36 Dose: 5 mg Cariprazine (Cariprazine Hcl 3 Mg Capsule) 6 mg PO DAILY [facility] Last Admin: 06/15/25 08:36 Dose: 6 mg Divalproex Sodium (Divalproex Sodium Er 500 Mg Tab.Er.24h) 500 mg PO BID [facility] Last Admin: 06/15/25 08:36 Dose: 500 mg Hydroxyzine HCl (Hydroxyzine Hcl 25 Mg Tablet) 25 mg PO Q6H PRN PRN Reason: mild anxiety Loperamide HCl (Loperamide Hcl 2 Mg Capsule) 2 mg PO Q4H PRN PRN Reason: Loose Stool Magnesium Hydroxide (Milk Of Magnesia 30 Ml Oral.Susp) 30 ml PO DAILY PRN PRN Reason: Constipation Memantine (Memantine Hcl 5 Mg Tablet) 5 mg PO BID [facility] Last Admin: 06/15/25 08:36 Dose: 5 mg Olanzapine (Olanzapine Odt 10 Mg Tab.Rapdis) 20 mg TRANSLINGU BEDTIME [facility] Last Admin: 06/14/25 20:29 Dose: 20 mg Olanzapine (Olanzapine 10 Mg Vial) 10 mg IM DAILY PRN PRN Reason: if refuses oral per Reilly Omeprazole (Omeprazole 20 Mg Capsule.Dr) 20 mg PO DAILY@0630 [facility] Last Admin: 06/15/25 06:35 Dose: 20 mg Propranolol HCl (Propranolol Hcl 10 Mg Tablet) 10 mg PO BID [facility]; Protocol Last Admin: 06/15/25 09:25 Dose: 10 mg Sertraline HCl (Sertraline Hcl 100 Mg Tablet) 100 mg PO BEDTIME [facility] Last Admin: 06/14/25 20:29 Dose: 100 mg Trazodone HCl (Trazodone Hcl 50 Mg Tablet) 50 mg PO BEDTIME MRX1 PRN PRN Reason: Insomnia Allergies Allergies Allergy/AdvReac Type Severity Reaction Status Date / Time haloperidol (From Haldol) AdvReac Mild AGITATION Verified 06/08/25 17:06 propranolol AdvReac irregular Verified 06/08/25 17:06 heartbeat Assessment & Plan Assessment & Plan (1) Schizoaffective disorder: Qualifiers: Schizoaffective disorder type: unspecified Qualified Code(s): F25.9 - Schizoaffective disorder, unspecified Status: Acute Code(s): F25.9 - Schizoaffective disorder, unspecified Plan Ms. Celaya is a 64 year-old woman with hx of schizoaffective disorder who was brought via EMS due to increase paranoia, left and was found hypothermic in the ED requiring bear hugger. Pt has Reilly which includes vraylar, olanzapine and invega sustenna. She is currently prescribed vrayla and olanzapine which apparently she was not taking. She continues to present with paranoid ideas, not fully forthcoming with extend of delusional content. We discussed fact that she has a Bharat's order, antipsychotic medication has to be enforced here on the unit. WIll continue olanzapine 20mg po qhs with back up IM if refuses oral of 10mg IM. Will continue vraylar. Pending additional collateral information from , prescriber. I do see that she was prescribed seroquel, which is not on reilly and at that point consider olanzapine is better option. PLAN 06/14 taking oral medical but has back IM. Seems less guarded. but continues to present with paranoid delusions and AH. BP low, tachycardia noted. TSH low, but free t4 wnl. seen by hospitalist. follow labs in 2 weeks (TSH/ free t4). continue olanzapine 20mg po qhs back IM olanzapine. 06/15 contiue current medications. pending collateral from prescriber and possibility to switching to [facility]IN. Reason for continued inpatient stay Substantial Risk for: inability to function Time Spent With Patient Time: Total time managing care of this patient today ____ minutes.
--- NOTE | 2025-06-15 11:02 | PC.NURSE ---
orthos obtained supine 95/54 109 HR sit 96/55 117 HR stand 104/59 125 HR Maggie Castano NP made aware. OK to give propranolol per Maggie.
--- NOTE | 2025-06-15 16:05 | PC.NURSE ---
Per Maggie OK to take off 5 min check and initiate 15 min checks
[2025-06-15 20:00] VITALS: BP 126/73; PULSE 98; RESP 18; TEMP 36.6; O2SAT 94
[2025-06-15] MEDS: OLANZapine ODT 10 MG TAB.RAPDIS 20 MG TRANSLINGU (21:47)
[2025-06-16 08:00] VITALS: BP 103/68; PULSE 89; RESP 16; TEMP 36.6; O2SAT 94
--- NOTE | 2025-06-16 18:04 | HO.PSYCHPN ---
Subjective Subjective Date of Service: 06/16/25 Reason For Visit: psychosis Interim History: Met with patient; discussed with team; reviewed chart A quietly resting on approach; mostly isolative; remains flat, guarded. taking all meds Mental Status Exam Mental Status Exam Narrative: Appearance: casually dressed, fair hygiene, in NAD Behavior: quiet; cooperative, guarded at times Psychomotor: psychomotor retardation; bilat action tremors, Speech: clear, some delayed in response, soft tone, spontaneous TP: thought blocking at times TC: worried about her safety Mood: depressed Affect: constricted SI: passive, denies plan or intent but does report some degree of wishing she would , but not cause by her own harm to self thinks this would not be good for God. HI: denies VH/AH: appears internally preoccupied as at times would seemed like hearing voices affecting her attention, repeating questions. Delusions: paranoid delusions but not fully forthcoming to extend of it. Insight/judgment: impaired x 2. Diagnostics Vital Signs (24Hr): Vital Signs - 24 hr 06/15/25 20:00 06/16/25 08:00 Temperature 97.9 F 98 F Pulse Rate 98 89 Respiratory Rate 18 16 Blood Pressure 126/73 103/68 Pulse Oximetry 94 94 Oxygen Delivery Method Room Air Room Air BMI result Body Mass Index 31.7 Labs 06/09/25 15:36 06/14/25 07:35 Medications Medications Current Medications Acetaminophen (Acetaminophen 325 Mg Tablet) 650 mg PO Q6H PRN PRN Reason: Headache/Pain Mild Scale (1-3) Last Admin: 06/14/25 08:36 Dose: 650 mg Al Hydroxide/Mg Hydroxide (Magnesium Hydrox/Alum Hydrox 30 Ml Oral.Susp) 30 ml PO Q6H PRN PRN Reason: Heartburn/Nausea Amantadine HCl (Amantadine Hcl 100 Mg Capsule) 100 mg PO BID [facility] Last Admin: 06/16/25 09:08 Dose: 100 mg Apixaban (Apixaban 5 Mg Tablet) 5 mg PO BID [facility] Last Admin: 06/16/25 09:08 Dose: 5 mg Cariprazine (Cariprazine Hcl 3 Mg Capsule) 6 mg PO DAILY [facility] Last Admin: 06/16/25 09:08 Dose: 6 mg Divalproex Sodium (Divalproex Sodium Er 500 Mg Tab.Er.24h) 500 mg PO BID [facility] Last Admin: 06/16/25 09:08 Dose: 500 mg Hydroxyzine HCl (Hydroxyzine Hcl 25 Mg Tablet) 25 mg PO Q6H PRN PRN Reason: mild anxiety Loperamide HCl (Loperamide Hcl 2 Mg Capsule) 2 mg PO Q4H PRN PRN Reason: Loose Stool Magnesium Hydroxide (Milk Of Magnesia 30 Ml Oral.Susp) 30 ml PO DAILY PRN PRN Reason: Constipation Memantine (Memantine Hcl 5 Mg Tablet) 5 mg PO BID [facility] Last Admin: 06/16/25 09:08 Dose: 5 mg Olanzapine (Olanzapine Odt 10 Mg Tab.Rapdis) 20 mg TRANSLINGU BEDTIME [facility] Last Admin: 06/15/25 21:47 Dose: 20 mg Olanzapine (Olanzapine 10 Mg Vial) 10 mg IM DAILY PRN PRN Reason: if refuses oral per Reilly Omeprazole (Omeprazole 20 Mg Capsule.Dr) 20 mg PO DAILY@0630 [facility] Last Admin: 06/16/25 06:39 Dose: 20 mg Propranolol HCl (Propranolol Hcl 10 Mg Tablet) 10 mg PO BID [facility]; Protocol Last Admin: 06/16/25 09:08 Dose: 10 mg Sertraline HCl (Sertraline Hcl 100 Mg Tablet) 100 mg PO BEDTIME [facility] Last Admin: 06/15/25 21:47 Dose: 100 mg Trazodone HCl (Trazodone Hcl 50 Mg Tablet) 50 mg PO BEDTIME MRX1 PRN PRN Reason: Insomnia Allergies Allergies Allergy/AdvReac Type Severity Reaction Status Date / Time haloperidol (From Haldol) AdvReac Mild AGITATION Verified 06/08/25 17:06 propranolol AdvReac irregular Verified 06/08/25 17:06 heartbeat Assessment & Plan Assessment & Plan (1) Schizoaffective disorder: Qualifiers: Schizoaffective disorder type: unspecified Qualified Code(s): F25.9 - Schizoaffective disorder, unspecified Status: Acute Code(s): F25.9 - Schizoaffective disorder, unspecified Plan Ms. Celaya is a 64 year-old woman with hx of schizoaffective disorder who was brought via EMS due to increase paranoia, left [facility] and was found hypothermic in the ED requiring bear hugger. Pt has Reilly which includes vraylar, olanzapine and invega sustenna. She is currently prescribed vrayla and olanzapine which apparently she was not taking. She continues to present with paranoid ideas, not fully forthcoming with extend of delusional content. We discussed fact that she has a Bharat's order, antipsychotic medication has to be enforced here on the unit. WIll continue olanzapine 20mg po qhs with back up IM if refuses oral of 10mg IM. Will continue vraylar. Pending additional collateral information from , prescriber. I do see that she was prescribed seroquel, which is not on reilly and at that point consider olanzapine is better option. PLAN 06/14 taking oral medical but has back IM. Seems less guarded. but continues to present with paranoid delusions and AH. BP low, tachycardia noted. TSH low, but free t4 wnl. seen by hospitalist. follow labs in 2 weeks (TSH/ free t4). continue olanzapine 20mg po qhs back IM olanzapine. 06/15 contiue current medications. pending collateral from prescriber and possibility to switching to [facility]. Reason for continued inpatient stay Substantial Risk for: inability to function Time Spent With Patient Time: Total time managing care of this patient today ____ minutes.
[2025-06-16 20:00] VITALS: BP 118/65; PULSE 83; RESP 16; TEMP 36.8; O2SAT 95
[2025-06-16] MEDS: OLANZapine ODT 10 MG TAB.RAPDIS 20 MG TRANSLINGU (21:42)
[2025-06-16 21:43] VITALS: BP 120/70
[2025-06-17 08:00] VITALS: BP 105/64; PULSE 94; RESP 18; TEMP 36.8; O2SAT 94
--- NOTE | 2025-06-17 18:11 | P.PNPSI_ITS ---
Subjective Subjective Date of Service: 07/11/25 Reason For Visit: psychosis Subjective Notes: Section 12B Interim History: Met with patient; discussed with team Little more communicative with development writer today. Says still has AH. Discussed that patient has a 12 B due on Wednesday. She says she is considering staying longer. Nursing shares that patient is concerned about cost of medications Mental Status Exam Mental Status Exam Narrative: Appearance: casually dressed, fair hygiene, in NAD Behavior: quiet; cooperative, guarded at times Psychomotor: psychomotor retardation; bilat action tremors, Speech: clear, some delayed in response, soft tone, spontaneous TP: thought blocking at times TC: worried about her safety Mood: depressed Affect: constricted SI: passive, denies plan or intent but does report some degree of wishing she would , but not cause by her own harm to self thinks this would not be good for God. HI: denies VH/AH: Reports AH; internally preoccupied as at times would seemed like hearing voices affecting her attention, repeating questions. Delusions: paranoid delusions but not fully forthcoming to extend of it. Insight/judgment: impaired x 2. Diagnostics Vital Signs (24Hr): Vital Signs - 24 hr 06/16/25 20:00 06/16/25 21:43 06/17/25 08:00 Temperature 98.3 F 98.2 F Pulse Rate 83 94 Respiratory Rate 16 18 Blood Pressure 118/65 120/70 105/64 Pulse Oximetry 95 94 Oxygen Delivery Method Room Air Room Air BMI result Body Mass Index 31.7 Labs 06/09/25 15:36 06/14/25 07:35 Medications Medications Current Medications Acetaminophen (Acetaminophen 325 Mg Tablet) 650 mg PO Q6H PRN PRN Reason: Headache/Pain Mild Scale (1-3) Last Admin: 06/14/25 08:36 Dose: 650 mg Al Hydroxide/Mg Hydroxide (Magnesium Hydrox/Alum Hydrox 30 Ml Oral.Susp) 30 ml PO Q6H PRN PRN Reason: Heartburn/Nausea Amantadine HCl (Amantadine Hcl 100 Mg Capsule) 100 mg PO BID [facility] Last Admin: 06/17/25 08:54 Dose: 100 mg Apixaban (Apixaban 5 Mg Tablet) 5 mg PO BID [facility] Last Admin: 06/17/25 08:53 Dose: 5 mg Cariprazine (Cariprazine Hcl 3 Mg Capsule) 6 mg PO DAILY [facility] Last Admin: 06/17/25 08:54 Dose: 6 mg Divalproex Sodium (Divalproex Sodium Er 500 Mg Tab.Er.24h) 500 mg PO BID [facility] Last Admin: 06/17/25 08:53 Dose: 500 mg Hydroxyzine HCl (Hydroxyzine Hcl 25 Mg Tablet) 25 mg PO Q6H PRN PRN Reason: mild anxiety Loperamide HCl (Loperamide Hcl 2 Mg Capsule) 2 mg PO Q4H PRN PRN Reason: Loose Stool Magnesium Hydroxide (Milk Of Magnesia 30 Ml Oral.Susp) 30 ml PO DAILY PRN PRN Reason: Constipation Memantine (Memantine Hcl 5 Mg Tablet) 5 mg PO BID [facility] Last Admin: 06/17/25 08:54 Dose: 5 mg Olanzapine (Olanzapine Odt 10 Mg Tab.Rapdis) 20 mg TRANSLINGU BEDTIME [facility] Last Admin: 06/16/25 21:42 Dose: 20 mg Olanzapine (Olanzapine 10 Mg Vial) 10 mg IM DAILY PRN PRN Reason: if refuses oral per Johan Omeprazole (Omeprazole 20 Mg Capsule.Dr) 20 mg PO DAILY@0630 [facility] Last Admin: 06/17/25 06:42 Dose: Not Given Propranolol HCl (Propranolol Hcl 10 Mg Tablet) 10 mg PO BID [facility]; Protocol Last Admin: 06/17/25 08:53 Dose: 10 mg Sertraline HCl (Sertraline Hcl 100 Mg Tablet) 100 mg PO BEDTIME [facility] Last Admin: 06/16/25 21:41 Dose: 100 mg Trazodone HCl (Trazodone Hcl 50 Mg Tablet) 50 mg PO BEDTIME MRX1 PRN PRN Reason: Insomnia Allergies Allergies Allergy/AdvReac Type Severity Reaction Status Date / Time haloperidol (From Haldol) AdvReac Mild AGITATION Verified 06/08/25 17:06 propranolol AdvReac irregular Verified 06/08/25 17:06 heartbeat Assessment & Plan Assessment & Plan (1) Schizoaffective disorder: Qualifiers: Schizoaffective disorder type: unspecified Qualified Code(s): F25.9 - Schizoaffective disorder, unspecified Status: Acute Code(s): F25.9 - Schizoaffective disorder, unspecified Plan Ms. Celaya is a 64 year-old woman with hx of schizoaffective disorder who was brought via EMS due to increase paranoia, left and was found hypothermic in the ED requiring bear hugger. Pt has Reilly which includes vraylar, olanzapine and invega sustenna. She is currently prescribed vrayla and olanzapine which apparently she was not taking. She continues to present with paranoid ideas, not fully forthcoming with extend of delusional content. We discussed fact that she has a Bharat's order, antipsychotic medication has to be enforced here on the unit. WIll continue olanzapine 20mg po qhs with back up IM if refuses oral of 10mg IM. Will continue vraylar. Pending additional collateral information from , prescriber. I do see that she was prescribed seroquel, which is not on reilly and at that point consider olanzapine is better option. PLAN 06/14 taking oral medical but has back IM. Seems less guarded. but continues to present with paranoid delusions and AH. BP low, tachycardia noted. TSH low, but free t4 wnl. seen by hospitalist. follow labs in 2 weeks (TSH/ free t4). continue olanzapine 20mg po qhs back IM olanzapine. 06/15 contiue current medications. pending collateral from prescriber and possibility to switching to [facility]. 06/16 continue current treatment plan Patient educated on: diagnosis Informed Consent: understands and further education needed Reason for continued inpatient stay Substantial Risk for: rapid decompensation Time Spent With Patient Time: Total time managing care of this patient today ____ minutes.
[2025-06-17 20:00] VITALS: BP 123/60; PULSE 80; RESP 16; TEMP 36.1; O2SAT 96
[2025-06-17 20:35] VITALS: BP 123/60; PULSE 80
[2025-06-17] MEDS: OLANZapine ODT 10 MG TAB.RAPDIS 20 MG TRANSLINGU (20:36)
--- NOTE | 2025-06-18 08:13 | HO.PSYCHPN ---
Subjective Subjective Date of Service: 06/18/25 Reason For Visit: psychosis Subjective Notes: Conditional Voluntary and 3 Day Interim History: Pt slept through the night. She reports she feels calmer. She does report voices continue to talk to her and accusing her of a crime, which she tells this journalists and other writers will not disclose. She reports voices had said to her that trial was last weekend but that did not happen. She does have some suspicious, voices are not telling her accurate information. She reports voices are telling her court trial is today instead, which she doubts is happening. She reports she does not think she can return to the , which this journalists and other writers informed is not the case and they are just waiting for her to get better prior to going back. She denies SI/HI. She reports she feels safer here than in other places. She has been taking medications. She states vraylar causes heart problems but no evidence of any cardiac side effects with this medications. This journalists and other writers sent email to her OP prescriber- Aranza Luong, who reports no prior trial of Invega Sustenna which is the only MARTIN on pt's bharat. Note that pt has significant action and resting tremors, suspect higher potency of antipsychotic paliperidone may exacerbate underlying movement disorder but may need to monitor. Additional collateral information gathered from - pt may not be consistent with medications and they also advised to have MARTIN instead if possible. Mental Status Exam Mental Status Exam Narrative: Appearance: wearing hospital gown, fair hygiene, in NAD Behavior: cooperative, guarded at times Psychomotor: bilat action tremors and resting tremors. Speech: clear, some delayed in response, soft tone, spontaneous TP: thought blocking at times TC: worried about her safety Mood: tired Affect: guarded, suspicious SI: passive, denies plan or intent but does report some degree of wishing she would , but not cause by her own harm to self thinks this would not be good for God. HI: denies VH/AH: appears internally preoccupied as at times would seemed like hearing voices affecting her attention, repeating questions. Delusions: paranoid delusions but not fully forthcoming to extend of it. Insight/judgment: impaired x 2. Memory/cog: alert, oriented x 3. not orientation as she thinks powerful people behind her being in the hospital. Diagnostics Vital Signs (24Hr): Vital Signs - 24 hr 06/17/25 20:00 06/17/25 20:35 Temperature 97.0 F Pulse Rate 80 80 Respiratory Rate 16 Blood Pressure 123/60 123/60 Pulse Oximetry 96 Oxygen Delivery Method Room Air BMI result Body Mass Index 31.7 Labs 06/09/25 15:36 06/14/25 07:35 Medications Medications Current Medications Acetaminophen (Acetaminophen 325 Mg Tablet) 650 mg PO Q6H PRN PRN Reason: Headache/Pain Mild Scale (1-3) Last Admin: 06/14/25 08:36 Dose: 650 mg Al Hydroxide/Mg Hydroxide (Magnesium Hydrox/Alum Hydrox 30 Ml Oral.Susp) 30 ml PO Q6H PRN PRN Reason: Heartburn/Nausea Amantadine HCl (Amantadine Hcl 100 Mg Capsule) 100 mg PO BID [facility] Last Admin: 06/17/25 20:36 Dose: 100 mg Apixaban (Apixaban 5 Mg Tablet) 5 mg PO BID [facility] Last Admin: 06/17/25 20:36 Dose: 5 mg Cariprazine (Cariprazine Hcl 3 Mg Capsule) 6 mg PO DAILY [facility] Last Admin: 06/17/25 08:54 Dose: 6 mg Divalproex Sodium (Divalproex Sodium Er 500 Mg Tab.Er.24h) 500 mg PO BID [facility] Last Admin: 06/17/25 20:36 Dose: 500 mg Hydroxyzine HCl (Hydroxyzine Hcl 25 Mg Tablet) 25 mg PO Q6H PRN PRN Reason: mild anxiety Loperamide HCl (Loperamide Hcl 2 Mg Capsule) 2 mg PO Q4H PRN PRN Reason: Loose Stool Magnesium Hydroxide (Milk Of Magnesia 30 Ml Oral.Susp) 30 ml PO DAILY PRN PRN Reason: Constipation Memantine (Memantine Hcl 5 Mg Tablet) 5 mg PO BID [facility] Last Admin: 06/17/25 20:36 Dose: 5 mg Olanzapine (Olanzapine Odt 10 Mg Tab.Rapdis) 20 mg TRANSLINGU BEDTIME [facility] Last Admin: 06/17/25 20:36 Dose: 20 mg Olanzapine (Olanzapine 10 Mg Vial) 10 mg IM DAILY PRN PRN Reason: if refuses oral per Johan Omeprazole (Omeprazole 20 Mg Capsule.Dr) 20 mg PO DAILY@0630 [facility] Last Admin: 06/18/25 06:19 Dose: 20 mg Propranolol HCl (Propranolol Hcl 10 Mg Tablet) 10 mg PO BID [facility]; Protocol Last Admin: 06/17/25 20:35 Dose: 10 mg Sertraline HCl (Sertraline Hcl 100 Mg Tablet) 100 mg PO BEDTIME [facility] Last Admin: 06/17/25 20:35 Dose: 100 mg Trazodone HCl (Trazodone Hcl 50 Mg Tablet) 50 mg PO BEDTIME MRX1 PRN PRN Reason: Insomnia Allergies Allergies Allergy/AdvReac Type Severity Reaction Status Date / Time haloperidol (From Haldol) AdvReac Mild AGITATION Verified 06/08/25 17:06 propranolol AdvReac irregular Verified 06/08/25 17:06 heartbeat Assessment & Plan Assessment & Plan (1) Schizoaffective disorder: Qualifiers: Schizoaffective disorder type: unspecified Qualified Code(s): F25.9 - Schizoaffective disorder, unspecified Status: Acute Code(s): F25.9 - Schizoaffective disorder, unspecified Plan Ms. Celaya is a 64 year-old woman with hx of schizoaffective disorder who was brought via EMS due to increase paranoia, left and was found hypothermic in the ED requiring bear hugger. Pt has Reilly which includes vraylar, olanzapine and invega sustenna. She is currently prescribed vrayla and olanzapine which apparently she was not taking. She continues to present with paranoid ideas, not fully forthcoming with extend of delusional content. We discussed fact that she has a Bharat's order, antipsychotic medication has to be enforced here on the unit. WIll continue olanzapine 20mg po qhs with back up IM if refuses oral of 10mg IM. Will continue vraylar. Pending additional collateral information from , prescriber. I do see that she was prescribed seroquel, which is not on reilly and at that point consider olanzapine is better option. PLAN 06/14 taking oral medical but has back IM. Seems less guarded. but continues to present with paranoid delusions and AH. BP low, tachycardia noted. TSH low, but free t4 wnl. seen by hospitalist. follow labs in 2 weeks (TSH/ free t4). continue olanzapine 20mg po qhs back IM olanzapine. 06/15 contiue current medications. pending collateral from prescriber and possibility to switching to MARTIN. 06/18 received collateral information from prescriber ISIDRO Cobian. No concern in terms of trial of paliperidone as pt has not been trial on this medications. will start paliperidone 6mg po daily, d/c vraylar. continue olanzapine 20mg po qhs with back IM. May need to try oral for about 7 days before considering MARTIN to make sure she has no side effects. Pt signed CV, and 3 day notice. She is calmer continues to have significant symptoms of paranoia/psychosis. No aggression towards self or others. Reason for continued inpatient stay Substantial Risk for: inability to function Time Spent With Patient Time: Total time managing care of this patient today ____ minutes.
[2025-06-18 09:16] VITALS: BP 111/59; PULSE 82; RESP 18; TEMP 36.2; O2SAT 98
[2025-06-18 20:00] VITALS: BP 114/75; PULSE 80; RESP 17; TEMP 36.6; O2SAT 94
[2025-06-18] MEDS: OLANZapine ODT 10 MG TAB.RAPDIS 20 MG TRANSLINGU (21:05)
[2025-06-18 21:31] VITALS: BP 114/73; PULSE 80
[2025-06-19 08:00] VITALS: BP 136/71; PULSE 87; RESP 18; TEMP 36.7; O2SAT 96
--- NOTE | 2025-06-19 08:43 | P.PNPSI_ITS ---
Subjective Subjective Date of Service: 06/19/25 Reason For Visit: psychosis Subjective Notes: 3 Day Interim History: Pt slept through the night. She is concern about medications exacerbation tremors, which is reasonable. She reports she thought paliperidone was not helpful when she tried. 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 She denied SI/HI. She continues to report voices talking to her about crimes and trial coming. She also continues to be under the impression that she is not allowed back to , which is not the case. more visible on the unit. Review of Systems Review of Systems She denies shortness of breath or chest pain. Denies abdominal pain. Mental Status Exam Mental Status Exam Narrative: Appearance: casually dressed, fair hygiene, in NAD Behavior: quiet; cooperative, guarded at times Psychomotor: psychomotor retardation; bilat action tremors, Speech: clear, some delayed in response, soft tone, spontaneous TP: thought blocking at times TC: worried about her safety Mood: depressed Affect: constricted SI: passive, denies plan or intent but does report some degree of wishing she would , but not cause by her own harm to self thinks this would not be good for God. HI: denies VH/AH: Reports AH; internally preoccupied as at times would seemed like hearing voices affecting her attention, repeating questions. Delusions: paranoid delusions but not fully forthcoming to extend of it. Insight/judgment: impaired x 2. Diagnostics Vital Signs (24Hr): Vital Signs - 24 hr 06/18/25 09:16 06/18/25 20:00 06/18/25 21:31 Temperature 97.2 F 97.8 F Pulse Rate 82 80 80 Respiratory Rate 18 17 Blood Pressure 111/59 L 114/75 114/73 Pulse Oximetry 98 94 Oxygen Delivery Method Room Air Room Air 06/19/25 08:00 Temperature 98.1 F Pulse Rate 87 Respiratory Rate 18 Blood Pressure 136/71 Pulse Oximetry 96 Oxygen Delivery Method Room Air BMI result Body Mass Index 31.7 Labs 06/09/25 15:36 06/14/25 07:35 Medications Medications Current Medications Acetaminophen (Acetaminophen 325 Mg Tablet) 650 mg PO Q6H PRN PRN Reason: Headache/Pain Mild Scale (1-3) Last Admin: 06/19/25 01:14 Dose: 650 mg Al Hydroxide/Mg Hydroxide (Magnesium Hydrox/Alum Hydrox 30 Ml Oral.Susp) 30 ml PO Q6H PRN PRN Reason: Heartburn/Nausea Amantadine HCl (Amantadine Hcl 100 Mg Capsule) 100 mg PO BID [facility] Last Admin: 06/18/25 21:23 Dose: 100 mg Apixaban (Apixaban 5 Mg Tablet) 5 mg PO BID [facility] Last Admin: 06/18/25 21:19 Dose: 5 mg Divalproex Sodium (Divalproex Sodium Er 500 Mg Tab.Er.24h) 500 mg PO BID [facility] Last Admin: 06/18/25 21:17 Dose: 500 mg Hydroxyzine HCl (Hydroxyzine Hcl 25 Mg Tablet) 25 mg PO Q6H PRN PRN Reason: mild anxiety Last Admin: 06/19/25 01:14 Dose: 25 mg Loperamide HCl (Loperamide Hcl 2 Mg Capsule) 2 mg PO Q4H PRN PRN Reason: Loose Stool Magnesium Hydroxide (Milk Of Magnesia 30 Ml Oral.Susp) 30 ml PO DAILY PRN PRN Reason: Constipation Memantine (Memantine Hcl 5 Mg Tablet) 5 mg PO BID [facility] Last Admin: 06/18/25 21:22 Dose: 5 mg Olanzapine (Olanzapine Odt 10 Mg Tab.Rapdis) 20 mg TRANSLINGU BEDTIME [facility] Last Admin: 06/18/25 21:05 Dose: 20 mg Olanzapine (Olanzapine 10 Mg Vial) 10 mg IM DAILY PRN PRN Reason: if refuses oral per Johan Omeprazole (Omeprazole 20 Mg Capsule.Dr) 20 mg PO DAILY@0630 [facility] Last Admin: 06/19/25 06:40 Dose: 20 mg Paliperidone (Paliperidone Er 6 Mg Tab.Er.24) 6 mg PO DAILY [facility] Propranolol HCl (Propranolol Hcl 10 Mg Tablet) 10 mg PO BID [facility]; Protocol Last Admin: 06/18/25 21:31 Dose: Not Given Sertraline HCl (Sertraline Hcl 100 Mg Tablet) 100 mg PO BEDTIME [facility] Last Admin: 06/18/25 21:23 Dose: 100 mg Trazodone HCl (Trazodone Hcl 50 Mg Tablet) 50 mg PO BEDTIME MRX1 PRN PRN Reason: Insomnia Allergies Allergies Allergy/AdvReac Type Severity Reaction Status Date / Time haloperidol (From Haldol) AdvReac Mild AGITATION Verified 06/08/25 17:06 propranolol AdvReac irregular Verified 06/08/25 17:06 heartbeat Assessment & Plan Assessment & Plan (1) Schizoaffective disorder: Qualifiers: Schizoaffective disorder type: unspecified Qualified Code(s): F25.9 - Schizoaffective disorder, unspecified Status: Acute Code(s): F25.9 - Schizoaffective disorder, unspecified Plan Ms. Celaya is a 64 year-old woman with hx of schizoaffective disorder who was brought via EMS due to increase paranoia, left and was found hypothermic in the ED requiring bear hugger. Pt has Reilly which includes vraylar, olanzapine and invega sustenna. She is currently prescribed vrayla and olanzapine which apparently she was not taking. She continues to present with paranoid ideas, not fully forthcoming with extend of delusional content. We discussed fact that she has a Bharat's order, antipsychotic medication has to be enforced here on the unit. WIll continue olanzapine 20mg po qhs with back up IM if refuses oral of 10mg IM. Will continue vraylar. Pending additional collateral information from , prescriber. I do see that she was prescribed seroquel, which is not on reilly and at that point consider olanzapine is better option. PLAN 06/19 started paliperidone 6mg po daily with plan to do MARTIN. D/c vraylar, continue olanzapine. may try low dose cogentin for parkisonism.. Reason for continued inpatient stay Substantial Risk for: inability to function Time Spent With Patient Time: Total time managing care of this patient today ____ minutes.
[2025-06-19 20:00] VITALS: BP 109/62; PULSE 98; RESP 16; TEMP 36.7; O2SAT 97
--- NOTE | 2025-06-20 | PC.NURSE ---
Pt declined 20mg Olanzapine.
[2025-06-20 00:27] VITALS: BP 128/63; PULSE 71; RESP 16; TEMP 36.6; O2SAT 94
--- NOTE | 2025-06-20 06:53 | PC.NURSE ---
Pt declined Omeprazole this morning.
[2025-06-20 08:00] VITALS: BP 134/82; PULSE 96; RESP 18; TEMP 36.5; O2SAT 95
--- NOTE | 2025-06-20 10:26 | P.PNPSI_ITS ---
Subjective Subjective Date of Service: 06/20/25 Reason For Visit: psychosis Subjective Notes: Conditional Voluntary Interim History: Pt retract 3 day. We had meeting with OP team to discuss plan and provided update. Pt presents calmer, continues to report paranoid ideas about being in trouble or accused of crime. She is concern about tremors, seem less with cogentin. taking paliperidone as prescribed. Plan to give MARTIN on 06/25/25. Review of Systems Review of Systems She denies shortness of breath or chest pain. Denies abdominal pain. Mental Status Exam Mental Status Exam Narrative: Appearance: casually dressed, fair hygiene, in NAD Behavior: quiet; cooperative, guarded at times Psychomotor: psychomotor retardation; bilat action tremors, Speech: clear, some delayed in response, soft tone, spontaneous TP: thought blocking at times TC: worried about her safety Mood: depressed Affect: constricted SI: passive, denies plan or intent but does report some degree of wishing she would , but not cause by her own harm to self thinks this would not be good for God. HI: denies VH/AH: Reports AH; internally preoccupied as at times would seemed like hearing voices affecting her attention, repeating questions. Delusions: paranoid delusions but not fully forthcoming to extend of it. Insight/judgment: impaired x 2. Diagnostics Vital Signs (24Hr): Vital Signs - 24 hr 06/19/25 20:00 06/20/25 00:27 06/20/25 08:00 Temperature 98.1 F 97.9 F 97.7 F Pulse Rate 98 71 96 Respiratory Rate 16 16 18 Blood Pressure 109/62 128/63 134/82 Pulse Oximetry 97 94 95 Oxygen Delivery Method Room Air Room Air Room Air BMI result Body Mass Index 31.7 Labs 06/09/25 15:36 06/14/25 07:35 Medications Medications Current Medications Acetaminophen (Acetaminophen 325 Mg Tablet) 650 mg PO Q6H PRN PRN Reason: Headache/Pain Mild Scale (1-3) Last Admin: 06/19/25 01:14 Dose: 650 mg Al Hydroxide/Mg Hydroxide (Magnesium Hydrox/Alum Hydrox 30 Ml Oral.Susp) 30 ml PO Q6H PRN PRN Reason: Heartburn/Nausea Amantadine HCl (Amantadine Hcl 100 Mg Capsule) 100 mg PO BID [facility] Last Admin: 06/20/25 08:35 Dose: 100 mg Apixaban (Apixaban 5 Mg Tablet) 5 mg PO BID [facility] Last Admin: 06/20/25 08:36 Dose: 5 mg Benztropine Mesylate (Benztropine Mesylate 1 Mg Tablet) 1 mg PO BID [facility] Divalproex Sodium (Divalproex Sodium Er 500 Mg Tab.Er.24h) 500 mg PO BID [facility] Last Admin: 06/20/25 08:35 Dose: 500 mg Hydroxyzine HCl (Hydroxyzine Hcl 25 Mg Tablet) 25 mg PO Q6H PRN PRN Reason: mild anxiety Last Admin: 06/19/25 01:14 Dose: 25 mg Loperamide HCl (Loperamide Hcl 2 Mg Capsule) 2 mg PO Q4H PRN PRN Reason: Loose Stool Magnesium Hydroxide (Milk Of Magnesia 30 Ml Oral.Susp) 30 ml PO DAILY PRN PRN Reason: Constipation Memantine (Memantine Hcl 5 Mg Tablet) 5 mg PO BID [facility] Last Admin: 06/20/25 08:36 Dose: 5 mg Olanzapine (Olanzapine Odt 10 Mg Tab.Rapdis) 20 mg TRANSLINGU BEDTIME [facility] Last Admin: 06/19/25 22:41 Dose: Not Given Olanzapine (Olanzapine 10 Mg Vial) 10 mg IM DAILY PRN PRN Reason: if refuses oral per Johan Omeprazole (Omeprazole 20 Mg Capsule.Dr) 20 mg PO DAILY@0700 [facility] Paliperidone (Paliperidone Er 6 Mg Tab.Er.24) 6 mg PO DAILY [facility] Last Admin: 06/20/25 08:36 Dose: 6 mg Sertraline HCl (Sertraline Hcl 100 Mg Tablet) 100 mg PO BEDTIME [facility] Last Admin: 06/19/25 20:10 Dose: 100 mg Trazodone HCl (Trazodone Hcl 50 Mg Tablet) 50 mg PO BEDTIME MRX1 PRN PRN Reason: Insomnia Allergies Allergies Allergy/AdvReac Type Severity Reaction Status Date / Time haloperidol (From Haldol) AdvReac Mild AGITATION Verified 06/08/25 17:06 Assessment & Plan Assessment & Plan (1) Schizoaffective disorder: Qualifiers: Schizoaffective disorder type: unspecified Qualified Code(s): F25.9 - Schizoaffective disorder, unspecified Status: Acute Code(s): F25.9 - Schizoaffective disorder, unspecified Plan Ms. Celaya is a 64 year-old woman with hx of schizoaffective disorder who was brought via EMS due to increase paranoia, left and was found hypothermic in the ED requiring bear hugger. Pt has Reilly which includes vraylar, olanzapine and invega sustenna. She is currently prescribed vrayla and olanzapine which apparently she was not taking. She continues to present with paranoid ideas, not fully forthcoming with extend of delusional content. We discussed fact that she has a Bharat's order, antipsychotic medication has to be enforced here on the unit. WIll continue olanzapine 20mg po qhs with back up IM if refuses oral of 10mg IM. Will continue vraylar. Pending additional collateral information from , prescriber. I do see that she was prescribed seroquel, which is not on reilly and at that point consider olanzapine is better option. PLAN 06/19 started paliperidone 6mg po daily with plan to do MARTIN. D/c vraylar, continue olanzapine. may try low dose cogentin for parkisonism. 06/20 less paranoia. retract 3 day. visible and attending some groups. seems less tremors with cogentin. continue to monitor plan for first MARTIN invega on 06/25/2025. Reason for continued inpatient stay Substantial Risk for: inability to function Time Spent With Patient Time: Total time managing care of this patient today ____ minutes.
[2025-06-20 20:00] VITALS: BP 97/57; PULSE 93; RESP 18; TEMP 36.5; O2SAT 94
[2025-06-20] MEDS: OLANZapine ODT 10 MG TAB.RAPDIS 20 MG TRANSLINGU (20:14)
[2025-06-21 08:00] VITALS: BP 126/69; PULSE 95; RESP 17; TEMP 36.2; O2SAT 96
--- NOTE | 2025-06-21 09:21 | HO.PSYCHPN ---
Subjective Subjective Date of Service: 06/21/25 Reason For Visit: psychosis Subjective Notes: Conditional Voluntary Interim History: Pt slept through the night. Cogentin seems to help significantly with s/s of parkinsonism-side effects of antipsychotic. More so than amantadine or propanolol- both discontinued for same reason and to avoid polypharmacy. Pt presents as much calmer. She reports she feels less anxious and is hearing less voices. She reports she still worried about trial but less so now. She reports she can trust more people and feels safe. She questioned need for MARTIN- reporting she takes medications- however, pt reminded that when paranoia and voices exacerbate, she does not know who she can trust or what medications to take and this is when she tends to decompensate. We discussed concern in terms of her leaving the detention as she said she was going to the police station to surrender herself as she thought they were looking for her. She denies SI/HI. 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 She reports she is sleeping better. Pt has been visible on the unit. attends assigned groups. reiterated plan to do first injection on 06/25/25 of invbridgette acosta. Mental Status Exam Mental Status Exam Narrative: Appearance: casually dressed, fair hygiene, in NAD Behavior: quiet; cooperative, guarded at times Psychomotor: psychomotor retardation; bilat action tremors, Speech: clear, some delayed in response, soft tone, spontaneous TP: thought blocking at times TC: worried about her safety Mood: depressed Affect: constricted SI: passive, denies plan or intent but does report some degree of wishing she would , but not cause by her own harm to self thinks this would not be good for God. HI: denies VH/AH: Reports AH; internally preoccupied as at times would seemed like hearing voices affecting her attention, repeating questions. Delusions: paranoid delusions but not fully forthcoming to extend of it. Insight/judgment: impaired x 2. Diagnostics Vital Signs (24Hr): Vital Signs - 24 hr 06/20/25 20:00 06/21/25 08:00 Temperature 97.7 F 97.2 F Pulse Rate 93 95 Respiratory Rate 18 17 Blood Pressure 97/57 L 126/69 Pulse Oximetry 94 96 Oxygen Delivery Method Room Air Room Air BMI result Body Mass Index 31.7 Labs 06/09/25 15:36 06/14/25 07:35 Medications Medications Current Medications Acetaminophen (Acetaminophen 325 Mg Tablet) 650 mg PO Q6H PRN PRN Reason: Headache/Pain Mild Scale (1-3) Last Admin: 06/19/25 01:14 Dose: 650 mg Al Hydroxide/Mg Hydroxide (Magnesium Hydrox/Alum Hydrox 30 Ml Oral.Susp) 30 ml PO Q6H PRN PRN Reason: Heartburn/Nausea Amantadine HCl (Amantadine Hcl 100 Mg Capsule) 100 mg PO BID [facility] Last Admin: 06/21/25 08:40 Dose: 100 mg Apixaban (Apixaban 5 Mg Tablet) 5 mg PO BID [facility] Last Admin: 06/21/25 08:40 Dose: 5 mg Benztropine Mesylate (Benztropine Mesylate 1 Mg Tablet) 1 mg PO BID [facility] Last Admin: 06/21/25 08:40 Dose: 1 mg Divalproex Sodium (Divalproex Sodium Er 500 Mg Tab.Er.24h) 500 mg PO BID [facility] Last Admin: 06/21/25 08:40 Dose: 500 mg Hydroxyzine HCl (Hydroxyzine Hcl 25 Mg Tablet) 25 mg PO Q6H PRN PRN Reason: mild anxiety Last Admin: 06/20/25 20:18 Dose: 25 mg Loperamide HCl (Loperamide Hcl 2 Mg Capsule) 2 mg PO Q4H PRN PRN Reason: Loose Stool Magnesium Hydroxide (Milk Of Magnesia 30 Ml Oral.Susp) 30 ml PO DAILY PRN PRN Reason: Constipation Memantine (Memantine Hcl 5 Mg Tablet) 5 mg PO BID [facility] Last Admin: 06/21/25 08:39 Dose: 5 mg Olanzapine (Olanzapine Odt 10 Mg Tab.Rapdis) 20 mg TRANSLINGU BEDTIME [facility] Last Admin: 06/20/25 20:14 Dose: 20 mg Olanzapine (Olanzapine 10 Mg Vial) 10 mg IM DAILY PRN PRN Reason: if refuses oral per Johan Omeprazole (Omeprazole 20 Mg Capsule.Dr) 20 mg PO DAILY@0700 [facility] Last Admin: 06/21/25 06:15 Dose: 20 mg Paliperidone (Paliperidone Er 6 Mg Tab.Er.24) 6 mg PO DAILY [facility] Last Admin: 06/21/25 08:40 Dose: 6 mg Sertraline HCl (Sertraline Hcl 100 Mg Tablet) 100 mg PO BEDTIME [facility] Last Admin: 06/20/25 20:14 Dose: 100 mg Trazodone HCl (Trazodone Hcl 50 Mg Tablet) 50 mg PO BEDTIME MRX1 PRN PRN Reason: Insomnia Allergies Allergies Allergy/AdvReac Type Severity Reaction Status Date / Time haloperidol (From Haldol) AdvReac Mild AGITATION Verified 06/08/25 17:06 Assessment & Plan Assessment & Plan (1) Schizoaffective disorder: Qualifiers: Schizoaffective disorder type: unspecified Qualified Code(s): F25.9 - Schizoaffective disorder, unspecified Status: Acute Code(s): F25.9 - Schizoaffective disorder, unspecified Plan Ms. Celaya is a 64 year-old woman with hx of schizoaffective disorder who was brought via EMS due to increase paranoia, left and was found hypothermic in the ED requiring bear hugger. Pt has Reilly which includes vraylar, olanzapine and invega sustenna. She is currently prescribed vrayla and olanzapine which apparently she was not taking. She continues to present with paranoid ideas, not fully forthcoming with extend of delusional content. We discussed fact that she has a Bharat's order, antipsychotic medication has to be enforced here on the unit. WIll continue olanzapine 20mg po qhs with back up IM if refuses oral of 10mg IM. Will continue vraylar. Pending additional collateral information from , prescriber. I do see that she was prescribed seroquel, which is not on reilly and at that point consider olanzapine is better option. PLAN 06/19 started paliperidone 6mg po daily with plan to do MARTIN. D/c vraylar, continue olanzapine. may try low dose cogentin for parkisonism. 06/20 less paranoia. retract 3 day. visible and attending some groups. seems less tremors with cogentin. continue to monitor plan for first MARTIN invega on 06/25/2025. 06/21 less Parkinsonism with cogentin. Less paranoid, more visible and less guarded. still reports residual AH, paranoid/persecutory delusions but improvement in insight and judgment. PLAN to give first dose of MARTIN on 06/25/2025, 234mg IM, followed by 156mg IM 4-8 days after. Reason for continued inpatient stay Substantial Risk for: inability to function Time Spent With Patient Time: Total time managing care of this patient today ____ minutes.
[2025-06-21 12:47] VITALS: BMI 32.1
[2025-06-21 20:00] VITALS: BP 101/58; PULSE 84; RESP 16; TEMP 36.2; O2SAT 96
--- NOTE | 2025-06-22 06:39 | PC.NURSE ---
Pt declined Omeprazole 20mg states I have no acid reflux, educated by TW but she would not take it.
[2025-06-22 08:00] VITALS: BP 135/85; PULSE 82; RESP 17; TEMP 36.4; O2SAT 97
--- NOTE | 2025-06-22 08:28 | HO.PSYCHPN ---
Subjective Subjective Date of Service: 06/22/25 Reason For Visit: psychosis Subjective Notes: Conditional Voluntary Interim History: Pt slept through the night. Pt reports less voices and less paranoid delusions. Noted increase in tremors today without amantadine- will restart it. Pt has been visible on the unit. attends assigned groups. reiterated plan to do first injection on 06/25/25 of aga acosta. Review of Systems Review of Systems She denies shortness of breath or chest pain. Denies abdominal pain. Mental Status Exam Mental Status Exam Narrative: Appearance: casually dressed, fair hygiene, in NAD Behavior: quiet; cooperative, guarded at times Psychomotor: psychomotor retardation; bilat action tremors, Speech: clear, some delayed in response, soft tone, spontaneous TP: thought blocking at times TC: worried about her safety Mood: depressed Affect: constricted SI: passive, denies plan or intent but does report some degree of wishing she would , but not cause by her own harm to self thinks this would not be good for God. HI: denies VH/AH: Reports AH; internally preoccupied as at times would seemed like hearing voices affecting her attention, repeating questions. Delusions: paranoid delusions but not fully forthcoming to extend of it. Insight/judgment: impaired x 2. Diagnostics Vital Signs (24Hr): Vital Signs - 24 hr 06/21/25 20:00 Temperature 97.2 F Pulse Rate 84 Respiratory Rate 16 Blood Pressure 101/58 L Pulse Oximetry 96 Oxygen Delivery Method Room Air BMI result Body Mass Index 32.1 Labs 06/09/25 15:36 06/14/25 07:35 Labs: Laboratory Results - last 48 hr 06/21/25 07:54 Valproic Acid 52.3 Medications Medications Current Medications Acetaminophen (Acetaminophen 325 Mg Tablet) 650 mg PO Q6H PRN PRN Reason: Headache/Pain Mild Scale (1-3) Last Admin: 06/19/25 01:14 Dose: 650 mg Al Hydroxide/Mg Hydroxide (Magnesium Hydrox/Alum Hydrox 30 Ml Oral.Susp) 30 ml PO Q6H PRN PRN Reason: Heartburn/Nausea Apixaban (Apixaban 5 Mg Tablet) 5 mg PO BID [facility] Last Admin: 06/21/25 20:30 Dose: 5 mg Benztropine Mesylate (Benztropine Mesylate 1 Mg Tablet) 1 mg PO BID [facility] Last Admin: 06/21/25 20:30 Dose: 1 mg Divalproex Sodium (Divalproex Sodium Er 500 Mg Tab.Er.24h) 500 mg PO BID [facility] Last Admin: 06/21/25 20:30 Dose: 500 mg Hydroxyzine HCl (Hydroxyzine Hcl 25 Mg Tablet) 25 mg PO Q6H PRN PRN Reason: mild anxiety Last Admin: 06/20/25 20:18 Dose: 25 mg Loperamide HCl (Loperamide Hcl 2 Mg Capsule) 2 mg PO Q4H PRN PRN Reason: Loose Stool Magnesium Hydroxide (Milk Of Magnesia 30 Ml Oral.Susp) 30 ml PO DAILY PRN PRN Reason: Constipation Memantine (Memantine Hcl 5 Mg Tablet) 5 mg PO BID [facility] Last Admin: 06/21/25 20:29 Dose: 5 mg Olanzapine (Olanzapine Odt 10 Mg Tab.Rapdis) 20 mg TRANSLINGU BEDTIME [facility] Last Admin: 06/21/25 21:29 Dose: Not Given Olanzapine (Olanzapine 10 Mg Vial) 10 mg IM DAILY PRN PRN Reason: if refuses oral per Johan Omeprazole (Omeprazole 20 Mg Capsule.Dr) 20 mg PO DAILY@0700 [facility] Last Admin: 06/21/25 06:15 Dose: 20 mg Paliperidone (Paliperidone Er 6 Mg Tab.Er.24) 6 mg PO DAILY [facility] Last Admin: 06/21/25 08:40 Dose: 6 mg Sertraline HCl (Sertraline Hcl 100 Mg Tablet) 100 mg PO BEDTIME [facility] Last Admin: 06/21/25 20:29 Dose: 100 mg Trazodone HCl (Trazodone Hcl 50 Mg Tablet) 50 mg PO BEDTIME MRX1 PRN PRN Reason: Insomnia Allergies Allergies Allergy/AdvReac Type Severity Reaction Status Date / Time haloperidol (From Haldol) AdvReac Mild AGITATION Verified 06/08/25 17:06 Assessment & Plan Assessment & Plan (1) Schizoaffective disorder: Qualifiers: Schizoaffective disorder type: unspecified Qualified Code(s): F25.9 - Schizoaffective disorder, unspecified Status: Acute Code(s): F25.9 - Schizoaffective disorder, unspecified Plan Ms. Celaya is a 64 year-old woman with hx of schizoaffective disorder who was brought via EMS due to increase paranoia, left and was found hypothermic in the ED requiring bear hugger. Pt has Reilly which includes vraylar, olanzapine and invega sustenna. She is currently prescribed vrayla and olanzapine which apparently she was not taking. She continues to present with paranoid ideas, not fully forthcoming with extend of delusional content. We discussed fact that she has a Bharat's order, antipsychotic medication has to be enforced here on the unit. WIll continue olanzapine 20mg po qhs with back up IM if refuses oral of 10mg IM. Will continue vraylar. Pending additional collateral information from , prescriber. I do see that she was prescribed seroquel, which is not on reilly and at that point consider olanzapine is better option. PLAN 06/19 started paliperidone 6mg po daily with plan to do MARTIN. D/c vraylar, continue olanzapine. may try low dose cogentin for parkisonism. 06/20 less paranoia. retract 3 day. visible and attending some groups. seems less tremors with cogentin. continue to monitor plan for first MARTIN invega on 06/25/2025. 06/21 less Parkinsonism with cogentin. Less paranoid, more visible and less guarded. still reports residual AH, paranoid/persecutory delusions but improvement in insight and judgment. PLAN to give first dose of MARTIN on 06/25/2025, 234mg IM, followed by 156mg IM 4-8 days after. 06/22 restart amantadine 100mg po BID continue cogentin 1mg po BID. less paranoid. visible. Reason for continued inpatient stay Substantial Risk for: inability to function Time Spent With Patient Time: Total time managing care of this patient today ____ minutes.
[2025-06-22 20:00] VITALS: BP 129/80; PULSE 88; RESP 18; TEMP 36.5; O2SAT 95
[2025-06-22] MEDS: OLANZapine ODT 10 MG TAB.RAPDIS 20 MG TRANSLINGU (20:07)
[2025-06-23 08:00] VITALS: BP 117/71; PULSE 110; TEMP 36.1; O2SAT 96
--- NOTE | 2025-06-23 08:54 | P.PNPSI_ITS ---
Subjective Subjective Date of Service: 06/23/25 Reason For Visit: psychosis Subjective Notes: Conditional Voluntary Interim History: Patient seen and discussed. She is visible on the unit. Cooperative and pleasant. Concerned about her hand tremors. Cognetin is helful. Amantadiine was restarted. Denies SI/HI. Pt presents as much calmer. She reports she feels less anxious and is hearing less voices Mental Status Exam Mental Status Exam Narrative: Appearance: casually dressed, fair hygiene, in NAD Behavior: quiet; cooperative, guarded at times Psychomotor: psychomotor retardation; bilat action tremors, Speech: clear, some delayed in response, soft tone, spontaneous TP: thought blocking at times TC: worried about her safety Mood: depressed Affect: constricted SI: passive, denies plan or intent but does report some degree of wishing she would , but not cause by her own harm to self thinks this would not be good for God. HI: denies VH/AH: Reports AH; internally preoccupied as at times would seemed like hearing voices affecting her attention, repeating questions. Delusions: paranoid delusions but not fully forthcoming to extend of it. Insight/judgment: impaired x 2. Diagnostics Vital Signs (24Hr): Vital Signs - 24 hr 06/22/25 20:00 06/23/25 08:00 Temperature 97.7 F 96.9 F Pulse Rate 88 110 H Respiratory Rate 18 Blood Pressure 129/80 117/71 Pulse Oximetry 95 96 Oxygen Delivery Method Room Air Room Air BMI result Body Mass Index 32.1 Labs 06/09/25 15:36 06/14/25 07:35 Labs: Laboratory Results - last 48 hr 06/21/25 07:54 Valproic Acid 52.3 Medications Medications Current Medications Acetaminophen (Acetaminophen 325 Mg Tablet) 650 mg PO Q6H PRN PRN Reason: Headache/Pain Mild Scale (1-3) Last Admin: 06/19/25 01:14 Dose: 650 mg Al Hydroxide/Mg Hydroxide (Magnesium Hydrox/Alum Hydrox 30 Ml Oral.Susp) 30 ml PO Q6H PRN PRN Reason: Heartburn/Nausea Amantadine HCl (Amantadine Hcl 100 Mg Capsule) 100 mg PO BID [facility] Last Admin: 06/22/25 20:07 Dose: 100 mg Apixaban (Apixaban 5 Mg Tablet) 5 mg PO BID [facility] Last Admin: 06/22/25 20:07 Dose: 5 mg Benztropine Mesylate (Benztropine Mesylate 1 Mg Tablet) 1 mg PO BID [facility] Last Admin: 06/22/25 20:07 Dose: 1 mg Divalproex Sodium (Divalproex Sodium Er 500 Mg Tab.Er.24h) 500 mg PO BID [facility] Last Admin: 06/22/25 20:07 Dose: 500 mg Hydroxyzine HCl (Hydroxyzine Hcl 25 Mg Tablet) 25 mg PO Q6H PRN PRN Reason: mild anxiety Last Admin: 06/20/25 20:18 Dose: 25 mg Loperamide HCl (Loperamide Hcl 2 Mg Capsule) 2 mg PO Q4H PRN PRN Reason: Loose Stool Magnesium Hydroxide (Milk Of Magnesia 30 Ml Oral.Susp) 30 ml PO DAILY PRN PRN Reason: Constipation Memantine (Memantine Hcl 5 Mg Tablet) 5 mg PO BID [facility] Last Admin: 06/22/25 20:07 Dose: 5 mg Olanzapine (Olanzapine Odt 10 Mg Tab.Rapdis) 20 mg TRANSLINGU BEDTIME [facility] Last Admin: 06/22/25 20:07 Dose: 20 mg Olanzapine (Olanzapine 10 Mg Vial) 10 mg IM DAILY PRN PRN Reason: if refuses oral per Johan Omeprazole (Omeprazole 20 Mg Capsule.Dr) 20 mg PO DAILY@0700 [facility] Last Admin: 06/23/25 07:24 Dose: Not Given Paliperidone (Paliperidone Er 6 Mg Tab.Er.24) 6 mg PO DAILY [facility] Last Admin: 06/22/25 08:49 Dose: 6 mg Sertraline HCl (Sertraline Hcl 100 Mg Tablet) 100 mg PO BEDTIME [facility] Last Admin: 06/22/25 20:06 Dose: 100 mg Trazodone HCl (Trazodone Hcl 50 Mg Tablet) 50 mg PO BEDTIME MRX1 PRN PRN Reason: Insomnia Allergies Allergies Allergy/AdvReac Type Severity Reaction Status Date / Time haloperidol (From Haldol) AdvReac Mild AGITATION Verified 06/08/25 17:06 Assessment & Plan Assessment & Plan (1) Schizoaffective disorder: Qualifiers: Schizoaffective disorder type: unspecified Qualified Code(s): F25.9 - Schizoaffective disorder, unspecified Status: Acute Code(s): F25.9 - Schizoaffective disorder, unspecified Plan Ms. Celaya is a 64 year-old woman with hx of schizoaffective disorder who was brought via EMS due to increase paranoia, left and was found hypothermic in the ED requiring bear hugger. Pt has Reilly which includes vraylar, olanzapine and invega sustenna. She is currently prescribed vrayla and olanzapine which apparently she was not taking. She continues to present with paranoid ideas, not fully forthcoming with extend of delusional content. We discussed fact that she has a Bharat's order, antipsychotic medication has to be enforced here on the unit. WIll continue olanzapine 20mg po qhs with back up IM if refuses oral of 10mg IM. Will continue vraylar. Pending additional collateral information from , prescriber. I do see that she was prescribed seroquel, which is not on reilly and at that point consider olanzapine is better option. PLAN 06/19 started paliperidone 6mg po daily with plan to do MARTIN. D/c vraylar, continue olanzapine. may try low dose cogentin for parkisonism. 06/20 less paranoia. retract 3 day. visible and attending some groups. seems less tremors with cogentin. continue to monitor plan for first MARTIN invega on 06/25/2025. 06/21 less Parkinsonism with cogentin. Less paranoid, more visible and less guarded. still reports residual AH, paranoid/persecutory delusions but improvement in insight and judgment. PLAN to give first dose of MARTIN on 06/25/2025, 234mg IM, followed by 156mg IM 4-8 days after. 06/23: continue current management and treatment plan. Reason for continued inpatient stay Substantial Risk for: inability to function Time Spent With Patient Time: Total time managing care of this patient today ____ minutes.
[2025-06-23 20:00] VITALS: BP 110/57; PULSE 94; RESP 17; TEMP 36.4; O2SAT 98
[2025-06-23] MEDS: OLANZapine ODT 10 MG TAB.RAPDIS 20 MG TRANSLINGU (20:59)
[2025-06-24 08:20] VITALS: BP 119/70; PULSE 88; RESP 18; TEMP 36.6; O2SAT 95
--- NOTE | 2025-06-24 10:14 | P.PNPSI_ITS ---
Subjective Subjective Date of Service: 06/24/25 Reason For Visit: psychosis Subjective Notes: Conditional Voluntary Interim History: Patient seen and discussed. Hallucinations have subsided. She says had initial insomnia last night. Says she used to be on low dose Seroquel which was very helpful for insomnia. Discussed R/B being on multiple antipsychotics. Patient on Bharat's order. Quetiapine not on the Bharat's. She is visible on the unit. Cooperative and pleasant. Denies SI/HI. Pt presents as much calmer. She reports she feels less anxious and is hearing less voices Mental Status Exam Mental Status Exam Narrative: Appearance: casually dressed, fair hygiene, in NAD Behavior: quiet; cooperative, guarded at times Psychomotor: psychomotor retardation; bilat action tremors, Speech: clear, some delayed in response, soft tone, spontaneous TP: thought blocking at times TC: worried about her safety Mood: depressed Affect: constricted SI: passive, denies plan or intent but does report some degree of wishing she would , but not cause by her own harm to self thinks this would not be good for God. HI: denies VH/AH: Reports AH; internally preoccupied as at times would seemed like hearing voices affecting her attention, repeating questions. Delusions: paranoid delusions but not fully forthcoming to extend of it. Insight/judgment: impaired x 2. Diagnostics Vital Signs (24Hr): Vital Signs - 24 hr 06/23/25 20:00 06/24/25 08:20 Temperature 97.5 F 97.8 F Pulse Rate 94 88 Respiratory Rate 17 18 Blood Pressure 110/57 L 119/70 Pulse Oximetry 98 95 Oxygen Delivery Method Room Air Room Air BMI result Body Mass Index 32.1 Labs 06/09/25 15:36 06/14/25 07:35 Labs: Laboratory Results - last 48 hr 06/21/25 07:54 Valproic Acid 52.3 Medications Medications Current Medications Acetaminophen (Acetaminophen 325 Mg Tablet) 650 mg PO Q6H PRN PRN Reason: Headache/Pain Mild Scale (1-3) Last Admin: 06/19/25 01:14 Dose: 650 mg Al Hydroxide/Mg Hydroxide (Magnesium Hydrox/Alum Hydrox 30 Ml Oral.Susp) 30 ml PO Q6H PRN PRN Reason: Heartburn/Nausea Amantadine HCl (Amantadine Hcl 100 Mg Capsule) 100 mg PO BID [facility] Last Admin: 06/24/25 08:52 Dose: 100 mg Apixaban (Apixaban 5 Mg Tablet) 5 mg PO BID [facility] Last Admin: 06/24/25 08:52 Dose: 5 mg Benztropine Mesylate (Benztropine Mesylate 1 Mg Tablet) 1 mg PO BID [facility] Last Admin: 06/24/25 08:52 Dose: 1 mg Divalproex Sodium (Divalproex Sodium Er 500 Mg Tab.Er.24h) 500 mg PO BID [facility] Last Admin: 06/24/25 08:52 Dose: 500 mg Hydroxyzine HCl (Hydroxyzine Hcl 25 Mg Tablet) 25 mg PO Q6H PRN PRN Reason: mild anxiety Last Admin: 06/20/25 20:18 Dose: 25 mg Loperamide HCl (Loperamide Hcl 2 Mg Capsule) 2 mg PO Q4H PRN PRN Reason: Loose Stool Magnesium Hydroxide (Milk Of Magnesia 30 Ml Oral.Susp) 30 ml PO DAILY PRN PRN Reason: Constipation Memantine (Memantine Hcl 5 Mg Tablet) 5 mg PO BID [facility] Last Admin: 06/24/25 08:51 Dose: 5 mg Olanzapine (Olanzapine Odt 10 Mg Tab.Rapdis) 20 mg TRANSLINGU BEDTIME [facility] Last Admin: 06/23/25 20:59 Dose: 20 mg Olanzapine (Olanzapine 10 Mg Vial) 10 mg IM DAILY PRN PRN Reason: if refuses oral per Johan Omeprazole (Omeprazole 20 Mg Capsule.Dr) 20 mg PO DAILY@0700 [facility] Last Admin: 06/24/25 06:40 Dose: Not Given Paliperidone (Paliperidone Er 6 Mg Tab.Er.24) 6 mg PO DAILY [facility] Last Admin: 06/24/25 08:52 Dose: 6 mg Sertraline HCl (Sertraline Hcl 100 Mg Tablet) 100 mg PO BEDTIME [facility] Last Admin: 06/23/25 20:59 Dose: 100 mg Trazodone HCl (Trazodone Hcl 50 Mg Tablet) 50 mg PO BEDTIME MRX1 PRN PRN Reason: Insomnia Allergies Allergies Allergy/AdvReac Type Severity Reaction Status Date / Time haloperidol (From Haldol) AdvReac Mild AGITATION Verified 06/08/25 17:06 Assessment & Plan Assessment & Plan (1) Schizoaffective disorder: Qualifiers: Schizoaffective disorder type: unspecified Qualified Code(s): F25.9 - Schizoaffective disorder, unspecified Status: Acute Code(s): F25.9 - Schizoaffective disorder, unspecified Plan Ms. Celaya is a 64 year-old woman with hx of schizoaffective disorder who was brought via EMS due to increase paranoia, left and was found hypothermic in the ED requiring bear hugger. Pt has Reilly which includes vraylar, olanzapine and invega sustenna. She is currently prescribed vrayla and olanzapine which apparently she was not taking. She continues to present with paranoid ideas, not fully forthcoming with extend of delusional content. We discussed fact that she has a Bharat's order, antipsychotic medication has to be enforced here on the unit. WIll continue olanzapine 20mg po qhs with back up IM if refuses oral of 10mg IM. Will continue vraylar. Pending additional collateral information from , prescriber. I do see that she was prescribed seroquel, which is not on reilly and at that point consider olanzapine is better option. PLAN 06/19 started paliperidone 6mg po daily with plan to do MARTIN. D/c vraylar, continue olanzapine. may try low dose cogentin for parkisonism. 06/20 less paranoia. retract 3 day. visible and attending some groups. seems less tremors with cogentin. continue to monitor plan for first MARTIN invega on 06/25/2025. 06/21 less Parkinsonism with cogentin. Less paranoid, more visible and less guarded. still reports residual AH, paranoid/persecutory delusions but improvement in insight and judgment. PLAN to give first dose of MARTIN on 06/25/2025, 234mg IM, followed by 156mg IM 4-8 days after. 06/23: continue current management and treatment plan. 06/24: continue current management and treatment plan. Reason for continued inpatient stay Substantial Risk for: inability to function Time Spent With Patient Time: Total time managing care of this patient today ____ minutes.
[2025-06-24 20:00] VITALS: BP 116/77; PULSE 100; RESP 18; TEMP 36.4; O2SAT 95
[2025-06-24] MEDS: OLANZapine ODT 10 MG TAB.RAPDIS 20 MG TRANSLINGU (20:12)
[2025-06-25 08:29] VITALS: BP 134/77; PULSE 108; RESP 16; TEMP 36.3; O2SAT 96
--- NOTE | 2025-06-25 08:41 | HO.PSYCHPN ---
Subjective Subjective Date of Service: 06/25/25 Reason For Visit: psychosis Subjective Notes: Conditional Voluntary Interim History: Pt reports some difficult falling asleep last night. She reports seroquel used to help low doses, however this antipsychotic not on bharat's. can try lose dose of clonazepam. Pt presents with less paranoid delusions, less AH/VH. She does have tremors resting and action. Will receive first MARTIN of 234mg today, with next loading dose of 156mg IM, monthly injection of 156mg [id number]. Mental Status Exam Mental Status Exam Narrative: Appearance: casually dressed, fair hygiene, in NAD Behavior: quiet; cooperative, guarded at times Psychomotor: psychomotor retardation; bilat action tremors, Speech: clear, some delayed in response, soft tone, spontaneous TP: thought blocking at times TC: worried about her safety Mood: depressed Affect: constricted SI: passive, denies plan or intent but does report some degree of wishing she would , but not cause by her own harm to self thinks this would not be good for God. HI: denies VH/AH: Reports AH; internally preoccupied as at times would seemed like hearing voices affecting her attention, repeating questions. Delusions: paranoid delusions but not fully forthcoming to extend of it. Insight/judgment: impaired x 2. Diagnostics Vital Signs (24Hr): Vital Signs - 24 hr 06/24/25 20:00 06/25/25 08:29 Temperature 97.5 F 97.3 F Pulse Rate 100 108 H Respiratory Rate 18 16 Blood Pressure 116/77 134/77 Pulse Oximetry 95 96 Oxygen Delivery Method Room Air Room Air BMI result Body Mass Index 32.1 Labs 06/09/25 15:36 06/14/25 07:35 Medications Medications Current Medications Acetaminophen (Acetaminophen 325 Mg Tablet) 650 mg PO Q6H PRN PRN Reason: Headache/Pain Mild Scale (1-3) Last Admin: 06/19/25 01:14 Dose: 650 mg Al Hydroxide/Mg Hydroxide (Magnesium Hydrox/Alum Hydrox 30 Ml Oral.Susp) 30 ml PO Q6H PRN PRN Reason: Heartburn/Nausea Amantadine HCl (Amantadine Hcl 100 Mg Capsule) 100 mg PO BID [facility] Last Admin: 06/25/25 08:30 Dose: 100 mg Apixaban (Apixaban 5 Mg Tablet) 5 mg PO BID [facility] Last Admin: 06/25/25 08:30 Dose: 5 mg Benztropine Mesylate (Benztropine Mesylate 1 Mg Tablet) 1 mg PO BID [facility] Last Admin: 06/25/25 08:30 Dose: 1 mg Divalproex Sodium (Divalproex Sodium Er 500 Mg Tab.Er.24h) 500 mg PO BID [facility] Last Admin: 06/25/25 08:30 Dose: 500 mg Hydroxyzine HCl (Hydroxyzine Hcl 25 Mg Tablet) 25 mg PO Q6H PRN PRN Reason: mild anxiety Last Admin: 06/25/25 02:14 Dose: 25 mg Loperamide HCl (Loperamide Hcl 2 Mg Capsule) 2 mg PO Q4H PRN PRN Reason: Loose Stool Magnesium Hydroxide (Milk Of Magnesia 30 Ml Oral.Susp) 30 ml PO DAILY PRN PRN Reason: Constipation Memantine (Memantine Hcl 5 Mg Tablet) 5 mg PO BID [facility] Last Admin: 06/25/25 08:30 Dose: 5 mg Olanzapine (Olanzapine Odt 10 Mg Tab.Rapdis) 20 mg TRANSLINGU BEDTIME [facility] Last Admin: 06/24/25 20:12 Dose: 20 mg Olanzapine (Olanzapine 10 Mg Vial) 10 mg IM DAILY PRN PRN Reason: if refuses oral per Johan Omeprazole (Omeprazole 20 Mg Capsule.Dr) 20 mg PO DAILY@0700 [facility] Last Admin: 06/25/25 06:40 Dose: 20 mg Paliperidone (Paliperidone Er 6 Mg Tab.Er.24) 6 mg PO DAILY [facility] Last Admin: 06/25/25 08:30 Dose: 6 mg Sertraline HCl (Sertraline Hcl 100 Mg Tablet) 100 mg PO BEDTIME [facility] Last Admin: 06/24/25 20:12 Dose: 100 mg Trazodone HCl (Trazodone Hcl 50 Mg Tablet) 50 mg PO BEDTIME MRX1 PRN PRN Reason: Insomnia Allergies Allergies Allergy/AdvReac Type Severity Reaction Status Date / Time haloperidol (From Haldol) AdvReac Mild AGITATION Verified 06/08/25 17:06 Assessment & Plan Assessment & Plan (1) Schizoaffective disorder: Qualifiers: Schizoaffective disorder type: unspecified Qualified Code(s): F25.9 - Schizoaffective disorder, unspecified Status: Acute Code(s): F25.9 - Schizoaffective disorder, unspecified Plan Ms. Celaya is a 64 year-old woman with hx of schizoaffective disorder who was brought via EMS due to increase paranoia, left and was found hypothermic in the ED requiring bear hugger. Pt has Reilly which includes vraylar, olanzapine and invega sustenna. She is currently prescribed vrayla and olanzapine which apparently she was not taking. She continues to present with paranoid ideas, not fully forthcoming with extend of delusional content. We discussed fact that she has a Bharat's order, antipsychotic medication has to be enforced here on the unit. WIll continue olanzapine 20mg po qhs with back up IM if refuses oral of 10mg IM. Will continue vraylar. Pending additional collateral information from , prescriber. I do see that she was prescribed seroquel, which is not on reilly and at that point consider olanzapine is better option. PLAN 06/19 started paliperidone 6mg po daily with plan to do MARTIN. D/c vraylar, continue olanzapine. may try low dose cogentin for parkisonism. 06/20 less paranoia. retract 3 day. visible and attending some groups. seems less tremors with cogentin. continue to monitor plan for first MARTIN invega on 06/25/2025. 06/21 less Parkinsonism with cogentin. Less paranoid, more visible and less guarded. still reports residual AH, paranoid/persecutory delusions but improvement in insight and judgment. PLAN to give first dose of MARTIN on 06/25/2025, 234mg IM, followed by 156mg IM 4-8 days after. 06/23: continue current management and treatment plan. 06/24: continue current management and treatment plan. 06/25 plan to receive first MARTIN invega sustenna 234mg IM toda, followed by second loading dose of 156mg IM on 06/29, plan to continue monthly MARTIN of 156mg IM. add low dose clonazepam 0.5mg po qhs for sleep. Reason for continued inpatient stay Substantial Risk for: inability to function Time Spent With Patient Time: Total time managing care of this patient today ____ minutes.
[2025-06-25 20:00] VITALS: BP 117/63; PULSE 90; RESP 16; TEMP 36.3; O2SAT 94
[2025-06-25] MEDS: OLANZapine ODT 10 MG TAB.RAPDIS 20 MG TRANSLINGU (20:51)
[2025-06-26 08:00] VITALS: BP 112/65; PULSE 109; RESP 16; TEMP 36.6; O2SAT 93
--- NOTE | 2025-06-26 09:06 | HO.PSYCHPN ---
Subjective Subjective Date of Service: 06/26/25 Reason For Visit: psychosis Subjective Notes: Conditional Voluntary Interim History: Pt reports sleeping through the night. She continued to present somewhat somnolent most of mid morning. We discussed decreasing dose of clonazepam and doing PRN. She has been visible in the unit and attending assigned groups. Medication Compliance: Yes Review of Systems Review of Systems She denies shortness of breath or chest pain. Denies abdominal pain. Mental Status Exam Mental Status Exam Narrative: Appearance: casually dressed, fair hygiene, in NAD Behavior: quiet; cooperative, guarded at times Psychomotor: psychomotor retardation; bilat action tremors, Speech: clear, some delayed in response, soft tone, spontaneous TP: thought blocking at times TC: worried about her safety Mood: depressed Affect: constricted SI: passive, denies plan or intent but does report some degree of wishing she would , but not cause by her own harm to self thinks this would not be good for God. HI: denies VH/AH: Reports AH; internally preoccupied as at times would seemed like hearing voices affecting her attention, repeating questions. Delusions: paranoid delusions but not fully forthcoming to extend of it. Insight/judgment: improving x 2. Diagnostics Vital Signs (24Hr): Vital Signs - 24 hr 06/25/25 20:00 06/26/25 08:00 Temperature 97.4 F 97.9 F Pulse Rate 90 109 H Respiratory Rate 16 16 Blood Pressure 117/63 112/65 Pulse Oximetry 94 93 Oxygen Delivery Method Room Air Room Air BMI result Body Mass Index 32.1 Labs 06/09/25 15:36 06/14/25 07:35 Medications Medications Current Medications Acetaminophen (Acetaminophen 325 Mg Tablet) 650 mg PO Q6H PRN PRN Reason: Headache/Pain Mild Scale (1-3) Last Admin: 06/25/25 10:50 Dose: 650 mg Al Hydroxide/Mg Hydroxide (Magnesium Hydrox/Alum Hydrox 30 Ml Oral.Susp) 30 ml PO Q6H PRN PRN Reason: Heartburn/Nausea Amantadine HCl (Amantadine Hcl 100 Mg Capsule) 100 mg PO BID [facility] Last Admin: 06/26/25 08:44 Dose: 100 mg Apixaban (Apixaban 5 Mg Tablet) 5 mg PO BID [facility] Last Admin: 06/26/25 08:44 Dose: 5 mg Benztropine Mesylate (Benztropine Mesylate 1 Mg Tablet) 1 mg PO BID [facility] Last Admin: 06/26/25 08:44 Dose: 1 mg Clonazepam (Clonazepam 0.5 Mg Tablet) 0.5 mg PO BEDTIME [facility] Last Admin: 06/25/25 20:50 Dose: 0.5 mg Divalproex Sodium (Divalproex Sodium Er 500 Mg Tab.Er.24h) 500 mg PO BID [facility] Last Admin: 06/26/25 08:44 Dose: 500 mg Hydroxyzine HCl (Hydroxyzine Hcl 25 Mg Tablet) 25 mg PO Q6H PRN PRN Reason: mild anxiety Last Admin: 06/25/25 02:14 Dose: 25 mg Loperamide HCl (Loperamide Hcl 2 Mg Capsule) 2 mg PO Q4H PRN PRN Reason: Loose Stool Magnesium Hydroxide (Milk Of Magnesia 30 Ml Oral.Susp) 30 ml PO DAILY PRN PRN Reason: Constipation Memantine (Memantine Hcl 5 Mg Tablet) 5 mg PO BID [facility] Last Admin: 06/26/25 08:44 Dose: 5 mg Olanzapine (Olanzapine Odt 10 Mg Tab.Rapdis) 20 mg TRANSLINGU BEDTIME [facility] Last Admin: 06/25/25 20:51 Dose: 20 mg Olanzapine (Olanzapine 10 Mg Vial) 10 mg IM DAILY PRN PRN Reason: if refuses oral per Johan Omeprazole (Omeprazole 20 Mg Capsule.Dr) 20 mg PO DAILY@0700 [facility] Last Admin: 06/26/25 07:04 Dose: Not Given Paliperidone (Paliperidone Er 6 Mg Tab.Er.24) 6 mg PO DAILY [facility] Last Admin: 06/26/25 08:44 Dose: 6 mg Paliperidone Palmitate (Paliperidone Palmitate 156 Mg/Ml Syringe) 156 mg IM ONCE ONE Stop: 06/29/25 10:01 Sertraline HCl (Sertraline Hcl 100 Mg Tablet) 100 mg PO BEDTIME [facility] Last Admin: 06/25/25 20:51 Dose: 100 mg Trazodone HCl (Trazodone Hcl 50 Mg Tablet) 50 mg PO BEDTIME MRX1 PRN PRN Reason: Insomnia Allergies Allergies Allergy/AdvReac Type Severity Reaction Status Date / Time haloperidol (From Haldol) AdvReac Mild AGITATION Verified 06/08/25 17:06 Assessment & Plan Assessment & Plan (1) Schizoaffective disorder: Qualifiers: Schizoaffective disorder type: unspecified Qualified Code(s): F25.9 - Schizoaffective disorder, unspecified Status: Acute Code(s): F25.9 - Schizoaffective disorder, unspecified Plan Ms. Celaya is a 64 year-old woman with hx of schizoaffective disorder who was brought via EMS due to increase paranoia, left and was found hypothermic in the ED requiring bear hugger. Pt has Reilly which includes vraylar, olanzapine and invega sustenna. She is currently prescribed vrayla and olanzapine which apparently she was not taking. She continues to present with paranoid ideas, not fully forthcoming with extend of delusional content. We discussed fact that she has a Bharat's order, antipsychotic medication has to be enforced here on the unit. WIll continue olanzapine 20mg po qhs with back up IM if refuses oral of 10mg IM. Will continue vraylar. Pending additional collateral information from , prescriber. I do see that she was prescribed seroquel, which is not on reilly and at that point consider olanzapine is better option. PLAN 06/19 started paliperidone 6mg po daily with plan to do MARTIN. D/c vraylar, continue olanzapine. may try low dose cogentin for parkisonism. 06/20 less paranoia. retract 3 day. visible and attending some groups. seems less tremors with cogentin. continue to monitor plan for first MARTIN invega on 06/25/2025. 06/21 less Parkinsonism with cogentin. Less paranoid, more visible and less guarded. still reports residual AH, paranoid/persecutory delusions but improvement in insight and judgment. PLAN to give first dose of MARTIN on 06/25/2025, 234mg IM, followed by 156mg IM 4-8 days after. 06/23: continue current management and treatment plan. 06/24: continue current management and treatment plan. 06/25 plan to receive first MARTIN invega sustenna 234mg IM toda, followed by second loading dose of 156mg IM on 06/29, plan to continue monthly MARTIN of 156mg IM. add low dose clonazepam 0.5mg po qhs for sleep. 06/26 lower dose of clonazepam to 0.25mg po qhs prn given over sedation in morning today after taking it. less paranoid, NO SI/HI. Reason for continued inpatient stay Substantial Risk for: inability to function Time Spent With Patient Time: Total time managing care of this patient today ____ minutes.
[2025-06-26 20:00] VITALS: BP 109/74; PULSE 100; RESP 20; TEMP 36.2; O2SAT 94
[2025-06-26] MEDS: OLANZapine ODT 10 MG TAB.RAPDIS 20 MG TRANSLINGU (21:10)
[2025-06-26] MEDS: clonazePAM ODT 0.125 MG TAB.RAPDIS 0.25 MG PO (23:54)
[2025-06-27 08:00] VITALS: BP 135/80; PULSE 83; RESP 16; TEMP 36.1; O2SAT 93
--- NOTE | 2025-06-27 09:23 | HO.PSYCHPN ---
Subjective Subjective Date of Service: 06/27/25 Reason For Visit: psychosis Subjective Notes: Conditional Voluntary Interim History: Pt reports sleeping through the night. She is less sedated today. She presents with some paranoid ideas about going back to the assisted, but overall less paranoid and less guarded. No SI/HI. We discussed decreasing dose of clonazepam and doing PRN. She has been visible in the unit and attending assigned groups. Review of Systems Review of Systems She denies shortness of breath or chest pain. Denies abdominal pain. Mental Status Exam Mental Status Exam Narrative: Appearance: casually dressed, fair hygiene, in NAD Behavior: quiet; cooperative, guarded at times Psychomotor: psychomotor retardation; bilat action tremors, Speech: clear, some delayed in response, soft tone, spontaneous TP: thought blocking at times TC: worried about her safety Mood: depressed Affect: constricted SI: passive, denies plan or intent but does report some degree of wishing she would , but not cause by her own harm to self thinks this would not be good for God. HI: denies VH/AH: Reports AH; internally preoccupied as at times would seemed like hearing voices affecting her attention, repeating questions. Delusions: paranoid delusions but not fully forthcoming to extend of it. Insight/judgment: improving x 2. Diagnostics Vital Signs (24Hr): Vital Signs - 24 hr 06/26/25 20:00 06/27/25 08:00 Temperature 97.2 F 97 F Pulse Rate 100 83 Respiratory Rate 20 16 Blood Pressure 109/74 135/80 Pulse Oximetry 94 93 Oxygen Delivery Method Room Air BMI result Body Mass Index 32.1 Labs 06/09/25 15:36 06/14/25 07:35 Medications Medications Current Medications Acetaminophen (Acetaminophen 325 Mg Tablet) 650 mg PO Q6H PRN PRN Reason: Headache/Pain Mild Scale (1-3) Last Admin: 06/25/25 10:50 Dose: 650 mg Al Hydroxide/Mg Hydroxide (Magnesium Hydrox/Alum Hydrox 30 Ml Oral.Susp) 30 ml PO Q6H PRN PRN Reason: Heartburn/Nausea Amantadine HCl (Amantadine Hcl 100 Mg Capsule) 100 mg PO BID [facility] Last Admin: 06/27/25 08:51 Dose: 100 mg Apixaban (Apixaban 5 Mg Tablet) 5 mg PO BID [facility] Last Admin: 06/27/25 08:52 Dose: 5 mg Benztropine Mesylate (Benztropine Mesylate 1 Mg Tablet) 1 mg PO BID [facility] Last Admin: 06/27/25 08:51 Dose: 1 mg Clonazepam (Clonazepam Odt 0.125 Mg Tab.Rapdis) 0.25 mg PO BEDTIME PRN PRN Reason: Sleep Last Admin: 06/26/25 23:54 Dose: 0.25 mg Divalproex Sodium (Divalproex Sodium Er 500 Mg Tab.Er.24h) 500 mg PO BID [facility] Last Admin: 06/27/25 08:51 Dose: 500 mg Hydroxyzine HCl (Hydroxyzine Hcl 25 Mg Tablet) 25 mg PO Q6H PRN PRN Reason: mild anxiety Last Admin: 06/25/25 02:14 Dose: 25 mg Loperamide HCl (Loperamide Hcl 2 Mg Capsule) 2 mg PO Q4H PRN PRN Reason: Loose Stool Magnesium Hydroxide (Milk Of Magnesia 30 Ml Oral.Susp) 30 ml PO DAILY PRN PRN Reason: Constipation Memantine (Memantine Hcl 5 Mg Tablet) 5 mg PO BID [facility] Last Admin: 06/27/25 08:51 Dose: 5 mg Olanzapine (Olanzapine Odt 10 Mg Tab.Rapdis) 20 mg TRANSLINGU BEDTIME [facility] Last Admin: 06/26/25 21:10 Dose: 20 mg Olanzapine (Olanzapine 10 Mg Vial) 10 mg IM DAILY PRN PRN Reason: if refuses oral per Johan Omeprazole (Omeprazole 20 Mg Capsule.Dr) 20 mg PO DAILY@0700 [facility] Last Admin: 06/27/25 05:59 Dose: Not Given Paliperidone (Paliperidone Er 6 Mg Tab.Er.24) 6 mg PO DAILY [facility] Last Admin: 06/27/25 08:51 Dose: 6 mg Paliperidone Palmitate (Paliperidone Palmitate 156 Mg/Ml Syringe) 156 mg IM ONCE ONE Stop: 06/29/25 10:01 Sertraline HCl (Sertraline Hcl 100 Mg Tablet) 100 mg PO BEDTIME [facility] Last Admin: 06/26/25 21:11 Dose: 100 mg Trazodone HCl (Trazodone Hcl 50 Mg Tablet) 50 mg PO BEDTIME MRX1 PRN PRN Reason: Insomnia Allergies Allergies Allergy/AdvReac Type Severity Reaction Status Date / Time haloperidol (From Haldol) AdvReac Mild AGITATION Verified 06/08/25 17:06 Assessment & Plan Assessment & Plan (1) Schizoaffective disorder: Qualifiers: Schizoaffective disorder type: unspecified Qualified Code(s): F25.9 - Schizoaffective disorder, unspecified Status: Acute Code(s): F25.9 - Schizoaffective disorder, unspecified Plan Ms. Celaya is a 64 year-old woman with hx of schizoaffective disorder who was brought via EMS due to increase paranoia, left and was found hypothermic in the ED requiring bear hugger. Pt has Reilly which includes vraylar, olanzapine and invega sustenna. She is currently prescribed vrayla and olanzapine which apparently she was not taking. She continues to present with paranoid ideas, not fully forthcoming with extend of delusional content. We discussed fact that she has a Bharat's order, antipsychotic medication has to be enforced here on the unit. WIll continue olanzapine 20mg po qhs with back up IM if refuses oral of 10mg IM. Will continue vraylar. Pending additional collateral information from , prescriber. I do see that she was prescribed seroquel, which is not on reilly and at that point consider olanzapine is better option. PLAN 06/19 started paliperidone 6mg po daily with plan to do MARTIN. D/c vraylar, continue olanzapine. may try low dose cogentin for parkisonism. 06/20 less paranoia. retract 3 day. visible and attending some groups. seems less tremors with cogentin. continue to monitor plan for first MARTIN invega on 06/25/2025. 06/21 less Parkinsonism with cogentin. Less paranoid, more visible and less guarded. still reports residual AH, paranoid/persecutory delusions but improvement in insight and judgment. PLAN to give first dose of MARTIN on 06/25/2025, 234mg IM, followed by 156mg IM 4-8 days after. 06/23: continue current management and treatment plan. 06/24: continue current management and treatment plan. 06/25 plan to receive first MARTIN invega sustenna 234mg IM toda, followed by second loading dose of 156mg IM on 06/29, plan to continue monthly MARTIN of 156mg IM. add low dose clonazepam 0.5mg po qhs for sleep. 06/26 lower dose of clonazepam to 0.25mg po qhs prn given over sedation in morning today after taking it. less paranoid, NO SI/HI. 06/27 continue tx. Reason for continued inpatient stay Substantial Risk for: inability to function Time Spent With Patient Time: Total time managing care of this patient today ____ minutes.
[2025-06-27 20:00] VITALS: BP 130/60; PULSE 115; RESP 16; TEMP 36.3; O2SAT 94
[2025-06-27] MEDS: OLANZapine ODT 10 MG TAB.RAPDIS 20 MG TRANSLINGU (20:21)
[2025-06-28 07:00] VITALS: BMI 33.2
[2025-06-28 08:00] VITALS: BP 125/78; PULSE 88; RESP 16; TEMP 36.7; O2SAT 93
--- NOTE | 2025-06-28 15:49 | P.PNPSI_ITS ---
Subjective Subjective Date of Service: 06/28/25 Reason For Visit: psychosis Subjective Notes: Reilly Order Medical Problems Affecting Mental Status: No Interim History: Medical record and nursing notes reviewed; case discussed during rounds with team/nursing staff, and met with patient for supportive therapy/psychoeducation, as well as medication management. Patient is back to bed after lunch, Slight more visible today per nursing. Patient has been compliant with meds, no side effects. Report improving in mood- depression and anxiety and rated them a 7/10. Report sometimes experience hallucination telling her F*you and they are swearing at me . Patient reports increased AH like this when she is around other people. Patient denies SI/SIB/HI/AVH during this encounter. Medication Compliance: Yes Side effects from medications: No Attending Groups: Intermittent Review of Systems Acute medical concerns: No Medical Review of Systems: unchanged Review of Systems Review of Systems Constitutional: Denies fatigue and Denies fever(s) Cardiovascular: Denies chest pain and Denies dyspnea Respiratory: Denies dyspnea Gastrointestinal: Denies abdominal pain Psychiatric: denies suicidal ideation Endocrine: Denies fatigue Mental Status Exam Mental Status Exam Narrative: Appearance: casually dressed, fair hygiene, in NAD Behavior: pleasant and cooperative Psychomotor: psychomotor retardation; bilat action tremors- mild while in bed. Speech: clear, soft tone, spontaneous TP: thought blocking at times- appear to improve TC: No SI/SIB/HI Mood: depressed and anxious but slighty improved Affect: constricted SI: Denies HI: denies VH/AH: Reports AH the voices swear at me or saysing F^you especially in crowded area. Delusions: paranoid delusions but not fully forthcoming to extend of it. Insight/judgment: improving x 2. Diagnostics Vital Signs (24Hr): Vital Signs - 24 hr 06/27/25 20:00 06/28/25 08:00 Temperature 97.3 F 98.1 F Pulse Rate 115 H 88 Respiratory Rate 16 16 Blood Pressure 130/60 125/78 Pulse Oximetry 94 93 Oxygen Delivery Method Room Air BMI result Body Mass Index 33.2 Labs 06/09/25 15:36 06/14/25 07:35 Medications Medications Current Medications Acetaminophen (Acetaminophen 325 Mg Tablet) 650 mg PO Q6H PRN PRN Reason: Headache/Pain Mild Scale (1-3) Last Admin: 06/25/25 10:50 Dose: 650 mg Al Hydroxide/Mg Hydroxide (Magnesium Hydrox/Alum Hydrox 30 Ml Oral.Susp) 30 ml PO Q6H PRN PRN Reason: Heartburn/Nausea Amantadine HCl (Amantadine Hcl 100 Mg Capsule) 100 mg PO BID [facility] Last Admin: 06/28/25 08:38 Dose: 100 mg Apixaban (Apixaban 5 Mg Tablet) 5 mg PO BID [facility] Last Admin: 06/28/25 08:38 Dose: 5 mg Benztropine Mesylate (Benztropine Mesylate 1 Mg Tablet) 1 mg PO BID [facility] Last Admin: 06/28/25 08:38 Dose: 1 mg Clonazepam (Clonazepam Odt 0.125 Mg Tab.Rapdis) 0.25 mg PO BEDTIME PRN PRN Reason: Sleep Last Admin: 06/26/25 23:54 Dose: 0.25 mg Divalproex Sodium (Divalproex Sodium Er 500 Mg Tab.Er.24h) 500 mg PO BID [facility] Last Admin: 06/28/25 08:38 Dose: 500 mg Hydroxyzine HCl (Hydroxyzine Hcl 25 Mg Tablet) 25 mg PO Q6H PRN PRN Reason: mild anxiety Last Admin: 06/25/25 02:14 Dose: 25 mg Loperamide HCl (Loperamide Hcl 2 Mg Capsule) 2 mg PO Q4H PRN PRN Reason: Loose Stool Magnesium Hydroxide (Milk Of Magnesia 30 Ml Oral.Susp) 30 ml PO DAILY PRN PRN Reason: Constipation Memantine (Memantine Hcl 5 Mg Tablet) 5 mg PO BID [facility] Last Admin: 06/28/25 08:38 Dose: 5 mg Olanzapine (Olanzapine Odt 10 Mg Tab.Rapdis) 20 mg TRANSLINGU BEDTIME [facility] Last Admin: 06/27/25 20:21 Dose: 20 mg Olanzapine (Olanzapine 10 Mg Vial) 10 mg IM DAILY PRN PRN Reason: if refuses oral per Johan Omeprazole (Omeprazole 20 Mg Capsule.Dr) 20 mg PO DAILY@0700 [facility] Last Admin: 06/28/25 06:44 Dose: 20 mg Paliperidone (Paliperidone Er 6 Mg Tab.Er.24) 6 mg PO DAILY [facility] Last Admin: 06/28/25 08:38 Dose: 6 mg Paliperidone Palmitate (Paliperidone Palmitate 156 Mg/Ml Syringe) 156 mg IM ONCE ONE Stop: 12/26/25 10:01 Sertraline HCl (Sertraline Hcl 100 Mg Tablet) 100 mg PO BEDTIME ANNA Last Admin: 06/27/25 20:21 Dose: 100 mg Trazodone HCl (Trazodone Hcl 50 Mg Tablet) 50 mg PO BEDTIME MRX1 PRN PRN Reason: Insomnia Allergies Allergies Allergy/AdvReac Type Severity Reaction Status Date / Time haloperidol (From Haldol) AdvReac Mild AGITATION Verified 06/08/25 17:06 Assessment & Plan Assessment & Plan (1) Schizoaffective disorder: Qualifiers: Schizoaffective disorder type: unspecified Qualified Code(s): F25.9 - Schizoaffective disorder, unspecified Status: Acute Code(s): F25.9 - Schizoaffective disorder, unspecified Plan Ms. Celaya is a 64 year-old woman with hx of schizoaffective disorder who was brought via EMS due to increase paranoia, left and was found hypothermic in the ED requiring bear hugger. Pt has Reilly which includes vraylar, olanzapine and invega sustenna. She is currently prescribed vrayla and olanzapine which apparently she was not taking. She continues to present with paranoid ideas, not fully forthcoming with extend of delusional content. We discussed fact that she has a Bharat's order, antipsychotic medication has to be enforced here on the unit. WIll continue olanzapine 20mg po qhs with back up IM if refuses oral of 10mg IM. Will continue vraylar. Pending additional collateral information from , prescriber. I do see that she was prescribed seroquel, which is not on reilly and at that point consider olanzapine is better option. PLAN 06/19 started paliperidone 6mg po daily with plan to do MARTIN. D/c vraylar, continue olanzapine. may try low dose cogentin for parkisonism. 06/20 less paranoia. retract 3 day. visible and attending some groups. seems less tremors with cogentin. continue to monitor plan for first MARTIN invega on 06/25/2025. 06/21 less Parkinsonism with cogentin. Less paranoid, more visible and less guarded. still reports residual AH, paranoid/persecutory delusions but improvement in insight and judgment. PLAN to give first dose of MARTIN on 06/25/2025, 234mg IM, followed by 156mg IM 4-8 days after. 06/23: continue current management and treatment plan. 06/24: continue current management and treatment plan. 06/25 plan to receive first MARTIN invega sustenna 234mg IM toda, followed by second loading dose of 156mg IM on 06/29, plan to continue monthly MARTIN of 156mg IM. add low dose clonazepam 0.5mg po qhs for sleep. 06/26 lower dose of clonazepam to 0.25mg po qhs prn given over sedation in morning today after taking it. less paranoid, NO SI/HI. 06/27 continue tx. 06/28/25: Patient is back to bed after lunch, Slight more visible today per nursing. Patient has been compliant with meds, no side effects. Report improving in mood-depression and anxiety and rated them a 7/10. Report sometimes experience hallucination telling her F*you and they are swearing at me . Patient reports increased AH like this when she is around other people. Patient denies SI/SIB/HI/AVH during this encounter. Patient educated on: diagnosis, medication risk/benefits and therapeutic strategies Informed Consent: understands and further education needed Reason for continued inpatient stay Substantial Risk for: med/psych decompensation Time Spent With Patient Time: Total time managing care of this patient today ____ minutes.
[2025-06-28 19:55] VITALS: BP 118/61; PULSE 98; RESP 16; TEMP 36.3; O2SAT 93
[2025-06-28] MEDS: OLANZapine ODT 10 MG TAB.RAPDIS 20 MG TRANSLINGU (20:14)
[2025-06-28] MEDS: clonazePAM ODT 0.125 MG TAB.RAPDIS 0.25 MG PO (23:05)
--- NOTE | 2025-06-29 02:18 | PC.NURSE ---
Pt requested PRN Klonopin, administered 0.25mg as ordered.
[2025-06-29 07:55] VITALS: BP 129/67; PULSE 92; RESP 14; TEMP 36.6; O2SAT 93
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
[2025-06-29 20:00] VITALS: BP 106/63; PULSE 86; RESP 16; TEMP 36.1; O2SAT 93
[2025-06-29] MEDS: OLANZapine ODT 10 MG TAB.RAPDIS 20 MG TRANSLINGU (20:30)
[2025-06-29] MEDS: clonazePAM ODT 0.125 MG TAB.RAPDIS 0.25 MG PO (20:33)
[2025-06-30 08:00] VITALS: BP 129/69; PULSE 103; RESP 17; TEMP 36.9; O2SAT 93
[2025-06-30 19:54] VITALS: BP 109/57; PULSE 100; TEMP 36.4; O2SAT 95
--- NOTE | 2025-06-30 19:56 | P.PNPSI_ITS ---
Subjective Subjective Date of Service: 06/30/25 Reason For Visit: psychosis Subjective Notes: Reilly Order and Conditional Voluntary Medical Problems Affecting Mental Status: No Interim History: Medical record and nursing notes reviewed; case discussed during rounds with team/nursing staff, and met with patient for supportive therapy/psychoeducation, as well as medication management. Patient seen in room after breakfast. report anxiety and depression are better but report hearing voices but not much. It was there saying hurry up to see satin . Report sleep and appetite are good. Per nursing, patient ate and went back to bed, quiet. No behavior issues, more visible than she used to and compliant with meds. Medication Compliance: Yes Side effects from medications: No Attending Groups: No Review of Systems Acute medical concerns: No Medical Review of Systems: unchanged Review of Systems Review of Systems Constitutional: Denies fatigue and Denies fever(s) Cardiovascular: Denies chest pain and Denies dyspnea Respiratory: Denies dyspnea Gastrointestinal: Denies abdominal pain Psychiatric: denies suicidal ideation Endocrine: Denies fatigue Mental Status Exam Mental Status Exam Narrative: Appearance: casually dressed, fair hygiene, in NAD Behavior: pleasant and cooperative Psychomotor: psychomotor retardation; bilat action tremors- mild while in bed. Speech: clear, soft tone, spontaneous TP: thought blocking at times- appear to improve TC: No SI/SIB/HI Mood: depressed and anxious but slightly improved Affect: constricted SI: Denies HI: denies VH/AH: intermittent AH Delusions: paranoid Insight/judgment: improving x 2. Diagnostics Vital Signs (24Hr): Vital Signs - 24 hr 06/29/25 20:00 06/30/25 08:00 06/30/25 19:54 Temperature 97 F 98.4 F 97.5 F Pulse Rate 86 103 H 100 Respiratory Rate 16 17 Blood Pressure 106/63 129/69 109/57 L Pulse Oximetry 93 93 95 Oxygen Delivery Method Room Air Room Air Room Air BMI result Body Mass Index 33.2 Labs 06/09/25 15:36 06/14/25 07:35 Medications Medications Current Medications Acetaminophen (Acetaminophen 325 Mg Tablet) 650 mg PO Q6H PRN PRN Reason: Headache/Pain Mild Scale (1-3) Last Admin: 06/25/25 10:50 Dose: 650 mg Al Hydroxide/Mg Hydroxide (Magnesium Hydrox/Alum Hydrox 30 Ml Oral.Susp) 30 ml PO Q6H PRN PRN Reason: Heartburn/Nausea Amantadine HCl (Amantadine Hcl 100 Mg Capsule) 100 mg PO BID [facility] Last Admin: 06/30/25 09:00 Dose: 100 mg Apixaban (Apixaban 5 Mg Tablet) 5 mg PO BID [facility] Last Admin: 06/30/25 09:00 Dose: 5 mg Benztropine Mesylate (Benztropine Mesylate 1 Mg Tablet) 1 mg PO BID [facility] Last Admin: 06/30/25 09:00 Dose: 1 mg Clonazepam (Clonazepam Odt 0.125 Mg Tab.Rapdis) 0.25 mg PO BEDTIME PRN PRN Reason: Sleep Last Admin: 06/29/25 20:33 Dose: 0.25 mg Divalproex Sodium (Divalproex Sodium Er 500 Mg Tab.Er.24h) 500 mg PO BID [facility] Last Admin: 06/30/25 09:00 Dose: 500 mg Hydroxyzine HCl (Hydroxyzine Hcl 25 Mg Tablet) 25 mg PO Q6H PRN PRN Reason: mild anxiety Last Admin: 06/25/25 02:14 Dose: 25 mg Loperamide HCl (Loperamide Hcl 2 Mg Capsule) 2 mg PO Q4H PRN PRN Reason: Loose Stool Magnesium Hydroxide (Milk Of Magnesia 30 Ml Oral.Susp) 30 ml PO DAILY PRN PRN Reason: Constipation Memantine (Memantine Hcl 5 Mg Tablet) 5 mg PO BID [facility] Last Admin: 06/30/25 09:00 Dose: 5 mg Olanzapine (Olanzapine Odt 10 Mg Tab.Rapdis) 20 mg TRANSLINGU BEDTIME [facility] Last Admin: 06/29/25 20:30 Dose: 20 mg Olanzapine (Olanzapine 10 Mg Vial) 10 mg IM DAILY PRN PRN Reason: if refuses oral per oJhan Omeprazole (Omeprazole 20 Mg Capsule.Dr) 20 mg PO DAILY@0700 [facility] Last Admin: 06/30/25 06:22 Dose: 20 mg Paliperidone (Paliperidone Er 6 Mg Tab.Er.24) 6 mg PO DAILY [facility] Last Admin: 06/30/25 09:00 Dose: 6 mg Sertraline HCl (Sertraline Hcl 100 Mg Tablet) 100 mg PO BEDTIME [facility] Last Admin: 06/29/25 20:31 Dose: 100 mg Trazodone HCl (Trazodone Hcl 50 Mg Tablet) 50 mg PO BEDTIME MRX1 PRN PRN Reason: Insomnia Allergies Allergies Allergy/AdvReac Type Severity Reaction Status Date / Time haloperidol (From Haldol) AdvReac Mild AGITATION Verified 06/08/25 17:06 Assessment & Plan Assessment & Plan (1) Schizoaffective disorder: Qualifiers: Schizoaffective disorder type: unspecified Qualified Code(s): F25.9 - Schizoaffective disorder, unspecified Status: Acute Code(s): F25.9 - Schizoaffective disorder, unspecified Plan Ms. Celaya is a 64 year-old woman with hx of schizoaffective disorder who was brought via EMS due to increase paranoia, left and was found hypothermic in the ED requiring bear hugger. Pt has Reilly which includes vraylar, olanzapine and invega sustenna. She is currently prescribed vrayla and olanzapine which apparently she was not taking. She continues to present with paranoid ideas, not fully forthcoming with extend of delusional content. We discussed fact that she has a Bharat's order, antipsychotic medication has to be enforced here on the unit. WIll continue olanzapine 20mg po qhs with back up IM if refuses oral of 10mg IM. Will continue vraylar. Pending additional collateral information from , prescriber. I do see that she was prescribed seroquel, which is not on reilly and at that point consider olanzapine is better option. PLAN 06/19 started paliperidone 6mg po daily with plan to do MARTIN. D/c vraylar, continue olanzapine. may try low dose cogentin for parkisonism. 06/20 less paranoia. retract 3 day. visible and attending some groups. seems less tremors with cogentin. continue to monitor plan for first MARTIN invega on 06/25/2025. 06/21 less Parkinsonism with cogentin. Less paranoid, more visible and less guarded. still reports residual AH, paranoid/persecutory delusions but improvement in insight and judgment. PLAN to give first dose of MARTIN on 06/25/2025, 234mg IM, followed by 156mg IM 4-8 days after. 06/23: continue current management and treatment plan. 06/24: continue current management and treatment plan. 06/25 plan to receive first MARTIN invega sustenna 234mg IM toda, followed by second loading dose of 156mg IM on 06/29, plan to continue monthly MARTIN of 156mg IM. add low dose clonazepam 0.5mg po qhs for sleep. 06/26 lower dose of clonazepam to 0.25mg po qhs prn given over sedation in morning today after taking it. less paranoid, NO SI/HI. 06/27 continue tx. 06/28/25: Patient is back to bed after lunch, Slight more visible today per nursing. Patient has been compliant with meds, no side effects. Report improving in mood-depression and anxiety and rated them a 7/10. Report sometimes experience hallucination telling her F*you and they are swearing at me . Patient reports increased AH like this when she is around other people. Patient denies SI/SIB/HI/AVH during this encounter. 06/29 pt due to have next loading dose of paliperidone 156mg today. will stop paliperidone oral on Wednesday prior to d/c. continue olanzapine. continue amantadine and cogentin for parkinsonism. residual paranoid delusions towards staff and AH. 06/30/25: Patient seen in room after breakfast. report anxiety and depression are better but report hearing voices but not much. It was there saying hurry up to see rebeca . Report sleep and appetite are good. Per nursing, patient ate and went back to bed, quiet. No behavior issues, more visible than she used to and compliant with meds. Patient educated on: diagnosis, medication risk/benefits and therapeutic strategies Informed Consent: understands and further education needed Reason for continued inpatient stay Substantial Risk for: med/psych decompensation Time Spent With Patient Time: Total time managing care of this patient today ____ minutes.
[2025-06-30] MEDS: OLANZapine ODT 10 MG TAB.RAPDIS 20 MG TRANSLINGU (20:22)
[2025-06-30] MEDS: clonazePAM ODT 0.125 MG TAB.RAPDIS 0.25 MG PO (20:25)
[2025-07-01 08:00] VITALS: BP 144/74; PULSE 105; RESP 17; TEMP 37; O2SAT 93
[2025-07-01 20:00] VITALS: BP 99/55; PULSE 88; TEMP 36.8; O2SAT 92
[2025-07-01] MEDS: OLANZapine ODT 10 MG TAB.RAPDIS 20 MG TRANSLINGU (20:34)
--- NOTE | 2025-07-01 21:46 | HO.PSYCHPN ---
Subjective Subjective Date of Service: 07/01/25 Reason For Visit: psychosis Subjective Notes: Reilly Order ([facility] ) and Conditional Voluntary Medical Problems Affecting Mental Status: No Interim History: Medical record and nursing notes reviewed; case discussed during rounds with team/nursing staff, and met with patient for supportive therapy/psychoeducation, as well as medication management. Patient seen in dinning areas where she ate snack and hang out with peers at the table. Patient talks about people at her who is diabetic and been eating shower, and mentions other peers who also has physical issues. She then states that I do not want to be back to my . Denies hearing voices today. Denies SI/SIB/HI but appear to be paranoid. Compliant with meds, slept for 8 hours, hand tremor is more prominent when hands raised up. Report feeling numbness on ELIGIO ankles when she touches them. Do not appear have edema issues. Medication Compliance: Yes Side effects from medications: Yes (hands tremor) Attending Groups: Yes Review of Systems Acute medical concerns: No Medical Review of Systems: unchanged Review of Systems Review of Systems Constitutional: Denies fatigue and Denies fever(s) Cardiovascular: Denies chest pain and Denies dyspnea Respiratory: Denies dyspnea Gastrointestinal: Denies abdominal pain Psychiatric: denies suicidal ideation Endocrine: Denies fatigue Mental Status Exam Mental Status Exam Narrative: Appearance: casually dressed, fair hygiene, in NAD Behavior: pleasant and cooperative Psychomotor: psychomotor retardation; bilat action tremors- mild while in bed but more prominent when hand/arm raised up. Speech: clear, soft tone, spontaneous TP:- Do not appear to have thought blocked, more organized TC: No SI/SIB/HI Mood: depressed and anxious but slightly improved Affect: constricted SI: Denies HI: denies VH/AH: denies voices today Delusions: appear to be paranoid Insight/judgment: improving x 2. Diagnostics Vital Signs (24Hr): Vital Signs - 24 hr 07/01/25 08:00 07/01/25 20:00 Temperature 98.6 F 98.2 F Pulse Rate 105 H 88 Respiratory Rate 17 Blood Pressure 144/74 H 99/55 L Pulse Oximetry 93 92 Oxygen Delivery Method Room Air BMI result Body Mass Index 33.2 Labs 06/09/25 15:36 06/14/25 07:35 Medications Medications Current Medications Acetaminophen (Acetaminophen 325 Mg Tablet) 650 mg PO Q6H PRN PRN Reason: Headache/Pain Mild Scale (1-3) Last Admin: 06/25/25 10:50 Dose: 650 mg Al Hydroxide/Mg Hydroxide (Magnesium Hydrox/Alum Hydrox 30 Ml Oral.Susp) 30 ml PO Q6H PRN PRN Reason: Heartburn/Nausea Amantadine HCl (Amantadine Hcl 100 Mg Capsule) 100 mg PO BID [facility] Last Admin: 07/01/25 20:35 Dose: 100 mg Apixaban (Apixaban 5 Mg Tablet) 5 mg PO BID [facility] Last Admin: 07/01/25 20:35 Dose: 5 mg Benztropine Mesylate (Benztropine Mesylate 1 Mg Tablet) 1 mg PO BID [facility] Last Admin: 07/01/25 20:34 Dose: 1 mg Clonazepam (Clonazepam Odt 0.125 Mg Tab.Rapdis) 0.25 mg PO BEDTIME PRN PRN Reason: Sleep Last Admin: 06/30/25 20:25 Dose: 0.25 mg Divalproex Sodium (Divalproex Sodium Er 500 Mg Tab.Er.24h) 500 mg PO BID [facility] Last Admin: 07/01/25 20:35 Dose: 500 mg Hydroxyzine HCl (Hydroxyzine Hcl 25 Mg Tablet) 25 mg PO Q6H PRN PRN Reason: mild anxiety Last Admin: 06/25/25 02:14 Dose: 25 mg Loperamide HCl (Loperamide Hcl 2 Mg Capsule) 2 mg PO Q4H PRN PRN Reason: Loose Stool Magnesium Hydroxide (Milk Of Magnesia 30 Ml Oral.Susp) 30 ml PO DAILY PRN PRN Reason: Constipation Memantine (Memantine Hcl 5 Mg Tablet) 5 mg PO BID [facility] Last Admin: 07/01/25 20:35 Dose: 5 mg Olanzapine (Olanzapine Odt 10 Mg Tab.Rapdis) 20 mg TRANSLINGU BEDTIME [facility] Last Admin: 07/01/25 20:34 Dose: 20 mg Olanzapine (Olanzapine 10 Mg Vial) 10 mg IM DAILY PRN PRN Reason: if refuses oral per Johan Omeprazole (Omeprazole 20 Mg Capsule.Dr) 20 mg PO DAILY@0700 [facility] Last Admin: 07/01/25 08:39 Dose: 20 mg Paliperidone (Paliperidone Er 6 Mg Tab.Er.24) 6 mg PO DAILY [facility] Last Admin: 07/01/25 08:40 Dose: 6 mg Sertraline HCl (Sertraline Hcl 100 Mg Tablet) 100 mg PO BEDTIME [facility] Last Admin: 07/01/25 20:35 Dose: 100 mg Trazodone HCl (Trazodone Hcl 50 Mg Tablet) 50 mg PO BEDTIME MRX1 PRN PRN Reason: Insomnia Allergies Allergies Allergy/AdvReac Type Severity Reaction Status Date / Time haloperidol (From Haldol) AdvReac Mild AGITATION Verified 06/08/25 17:06 Assessment & Plan Assessment & Plan (1) Schizoaffective disorder: Qualifiers: Schizoaffective disorder type: unspecified Qualified Code(s): F25.9 - Schizoaffective disorder, unspecified Status: Acute Code(s): F25.9 - Schizoaffective disorder, unspecified Plan Ms. Celaya is a 64 year-old woman with hx of schizoaffective disorder who was brought via EMS due to increase paranoia, left and was found hypothermic in the ED requiring bear hugger. Pt has Reilly which includes vraylar, olanzapine and invega sustenna. She is currently prescribed vrayla and olanzapine which apparently she was not taking. She continues to present with paranoid ideas, not fully forthcoming with extend of delusional content. We discussed fact that she has a Bharat's order, antipsychotic medication has to be enforced here on the unit. WIll continue olanzapine 20mg po qhs with back up IM if refuses oral of 10mg IM. Will continue vraylar. Pending additional collateral information from , prescriber. I do see that she was prescribed seroquel, which is not on reilly and at that point consider olanzapine is better option. PLAN 06/19 started paliperidone 6mg po daily with plan to do MARTIN. D/c vraylar, continue olanzapine. may try low dose cogentin for parkisonism. 06/20 less paranoia. retract 3 day. visible and attending some groups. seems less tremors with cogentin. continue to monitor plan for first MARTIN invega on 06/25/2025. 06/21 less Parkinsonism with cogentin. Less paranoid, more visible and less guarded. still reports residual AH, paranoid/persecutory delusions but improvement in insight and judgment. PLAN to give first dose of MARTIN on 06/25/2025, 234mg IM, followed by 156mg IM 4-8 days after. 06/23: continue current management and treatment plan. 06/24: continue current management and treatment plan. 06/25 plan to receive first MARTIN invega sustenna 234mg IM toda, followed by second loading dose of 156mg IM on 06/29, plan to continue monthly MARTIN of 156mg IM. add low dose clonazepam 0.5mg po qhs for sleep. 06/26 lower dose of clonazepam to 0.25mg po qhs prn given over sedation in morning today after taking it. less paranoid, NO SI/HI. 06/27 continue tx. 06/28/25: Patient is back to bed after lunch, Slight more visible today per nursing. Patient has been compliant with meds, no side effects. Report improving in mood-depression and anxiety and rated them a 7/10. Report sometimes experience hallucination telling her F*you and they are swearing at me . Patient reports increased AH like this when she is around other people. Patient denies SI/SIB/HI/AVH during this encounter. 06/29 pt due to have next loading dose of paliperidone 156mg today. will stop paliperidone oral on Wednesday prior to d/c. continue olanzapine. continue amantadine and cogentin for parkinsonism. residual paranoid delusions towards staff and AH. 06/30/25: Patient seen in room after breakfast. report anxiety and depression are better but report hearing voices but not much. It was there saying hurry up to see satin . Report sleep and appetite are good. Per nursing, patient ate and went back to bed, quiet. No behavior issues, more visible than she used to and compliant with meds. 07/01/25: Patient seen in dinning areas where she ate snack and hang out with peers at the table. Patient talks about people at her who is diabetic and been eating shower, and mentions other peers who also has physical issues. She then states that I do not want to be back to my . Denies hearing voices today. Denies SI/SIB/HI but appear to be paranoid. Compliant with meds, slept for 8 hours, hand tremor is more prominent when hands raised up. Report feeling numbness on ELIGIO ankles when she touches them. Do not appear have edema issues Patient educated on: diagnosis, medication risk/benefits and therapeutic strategies Informed Consent: understands and further education needed Reason for continued inpatient stay Substantial Risk for: med/psych decompensation Time Spent With Patient Time: Total time managing care of this patient today ____ minutes.
[2025-07-02 07:55] VITALS: BP 136/72; PULSE 79; TEMP 36.4; O2SAT 95
--- NOTE | 2025-07-02 08:45 | P.DS_ITS ---
DS: Providers Provider Date of admission: 06/13/25 12:03 Date of discharge: 07/02/25 Primary care physician: Karen Rhodes MD Admitting clinician: Maggie Castano Discharging clinician: Maggie Castano DS: Diagnosis Discharge Diagnosis (1) Schizoaffective disorder: Status: Acute DS: Medications Discharge Medications Home Medications: Home Medications ?Medication ?Instructions ?Recorded ?Confirmed amantadine HCl 100 mg capsule 100 mg PO BID 06/09/25 1 08/10/24 apixaban 5 mg tablet (Eliquis) 5 mg PO BID 06/09/25 cariprazine 6 mg capsule (Vraylar) 6 mg PO DAILY 06/0906/09/25 divalproex 500 mg tablet,extended 500 mg PO BID 06/09/25 release 24 hr furosemide 40 mg tablet 40 mg PO DAILY 06/09/2512/27 memantine 5 mg tablet 5 mg PO BID 06/09/25 5 olanzapine 20 mg tablet 20 mg PO BEDTIME 06/09/25 propranolol 10 mg tablet 10 mg PO BID 06/09/25 quetiapine 25 mg tablet 25 mg PO BEDTIME 06/09/25 sertraline 50 mg tablet 150 mg PO BEDTIME 06/09/25 1 08/10/24 Previous Rx's ?Medication ?Instructions ?Recorded amantadine HCl 100 mg capsule 100 mg PO BID #60 caps 1 08/26/24 apixaban 5 mg tablet (Eliquis) 5 mg PO BID #60 tabs benztropine 1 mg tablet 1 mg PO BID #60 tabs 5 memantine 5 mg tablet 5 mg PO BID #60 tabs 5 olanzapine 20 mg tablet 20 mg PO BEDTIME #30 tabs pantoprazole 40 mg tablet,delayed 40 mg PO DAILY #30 t abs 06/25/25 release sertraline 100 mg tablet 100 mg PO BEDTIME #30 tabs 1 08/26/24 Mental Status Exam Mental Status Exam Narrative: Appearance: casually dressed, fair hygiene, in NAD Behavior: pleasant and cooperative Psychomotor: psychomotor retardation; bilat action tremors- mild while in bed but more prominent when hand/arm raised up. Speech: clear, soft tone, spontaneous TP:more organized and linear TC: No SI/SIB/HI Mood: depressed and anxious but slightly improved Affect: constricted SI: Denies HI: denies VH/AH: continues to hear voices but less. Delusions: appear to be paranoid Insight/judgment: improving x 2. Data Data Completed and Pending Completed studies during hospitalization [Text1]: 06/10/25 15:09 Blood - Venous Blood Culture - Final No growth after 5 days. 06/10/25 15:09 Blood - Venous Blood Culture - Final No growth after 5 days. 06/11/25 Unknown Urine clean catch - Clean Catch Midstream Urine Culture - Final No growth. DS: Summary Hospital Course Hospital Course: Ms. Celaya is a 64 year-old woman with hx of schizoaffective disorder who was brought via EMS from [facility] senior care due to increase paranoid delusions, not eating much, had left the and became hypothermic (needing a bear hugger). In the ED, pertinent labs include CBC with slightly elevated WBC (afebrile). CMP without electrolyte abnormalities, BUN 34, Cr 1.10, creatinine clearance 46.9. She had episode of tachycardia, reported abdominal pain, loose stools. She was positive for noravirus. She received IV Fluids, noted BP was low- lasix has been held. EKG showed normal sinus rhythm, QTc 432. On the unit, pt presents as calm but guarded. She reports she hears voices, telling her that she is bad. She reports she couldn't trust anyone at the senior care. She reports she owes money to the senior care, which suspect is not accurate as these are state programs. She reports the senior care felt apart, everyone was going back to their old habits; eating too much, smoking too much. When asked about more details in terms of what she believes is happening that led to her leaving the senior care and staying outside in the cold, she states I don't want to share this information. She goes on to explain that she does not who she can trust. She also states no one can help me! When asked about suicidal thoughts or any plan or intent to end her life, she states I wouldn't end my life. Do I want to ? I don't know. She reports poor sleep. Past Psychiatric History: [place] [facility] [place]2024[place] [facility] [place] [facility] [place] [facility] [place] [facility] [place] [facility] [place] [place]. Per crisis over seven admissions since 1997. Hx of [facility] OP: [facility] Aranza Harrisemmanuel-psychopharmacology ([phone]) Therapist Maylin Mcgowan DMH: Tala Hernandez [facility] director: Piyush Felton ([phone]) Guardian: Jagdish Krishnan VNA: [facility]- Cassy Prado valid until 07/2025: includes Olanzapine (up to 40mg/day), Invega Sustenna, Vraylar SA: [place] overdose, Geodon overdose, Seroquel overdose, Ativan overdose Medical Evaluation Reviewed: Yes HOSPITAL COURSE On the unit, pt was initially admitted on a sect 12b. She presented with paranoid delusions thinking people at was trying to harm her as well as being accused of a crime and having a trial soon. She never disclosed what she thought she was being accused of. She declined to sign any documents as pt stated I preferred not to sign anything when I am paranoid. Pt has a Bharat's oder which include one MARTIN INvega Sustenna (which pt was not on it). It also includes vraylar and olanzapine. She had been on both braylar and olanzapine. She had also been prescribed low dose of seroquel but because this antipsychotic was not on the bharat's it was discontinued. Pt was restarted on olanzapine 20mg po qhs with back IM per Bharat's if pt refuses oral antipsychotic. Pt initially reported SI in context of feeling people will eventually hurt her so she felt hurting herself first would be better to stop the suffering. She denied any plan or intent. We also decided to start paliperidone with plan to transition to MARTIN. She does have Parkinsonism which seemed to worsened with antipsychotics. She was started on cogentin 1mg po BID with fair effect and kept on amantadine also with fair effect. She gradually presented as less paranoid and suspicious and reported less AH. She agreed to sign CV. She received two loading dose of Invega Sustenna first on 06/25/2025 of 234mg IM, second one on 06/29/2025 of 156mg IM. Next Invega Sustenna of 234mg IM due on 07/23/2024. She was continue on olanzapine 20mg po qhs as although paranoid delusions and psychosis decreased, she continued to have residual symptoms and it was felt that without olanzapine, Paliperidone alone may not be as effective. Propanolol was stopped as it did not seem to improve tremors. Lasix was discontinued as BP is low. May need to assess need for lasix with PCP. No edema noted. She should follow up with PCP for routine care. Do note that her A1c is going up slightly currently 6.2% She was increasingly more visible on the unit, social with select peers. There were no incidences of disruptive behaviors nor need for restraints. She denied SI/HI several days prior to discharge and presented as more future oriented. She did have residual paranoid ideas of people at trying to harm. Status at Discharge Cognitive/behavioral status at discharge: Pt sleeping and eating well. No SI/HI. Residual paranoid delusions and psychosis. Taking medications as prescribed. No aggression towards self or others. Functional status at discharge: independent ambulation Overall status at discharge: patient is progressing back to baseline Time Spent with Patient Time attestation: Total time managing care of this patient today ____ minutes. 45 Discharge Plan Discharge Anticipated Discharge Date/Time: 07/02/25 08:57 Patient Disposition: Home, Self-Care Discharge Diagnosis: Schizoaffective disorder Referrals: [facility] [Other] - 07/04/25 11:00 am Referral Note: You will start your partial program on 07/04/25 at 11:00AM. Maylin Mcgowan (Therapist) [Other] - 07/04/25 1:15 pm Referral Note: You will see Maylin on 07/04 at 1:15. If you need to reschedule or cancel the appointment please call the number listed. Marielle Daniels (Psychiatrist) [Other] - 07/13/25 10:20 am Referral Note: You will see Marielle on 07/13/2025 10:20 AM. if you need to cancel or reschedule the appointment please call the number listed [facility] [Outside] - 3-5 Days Referral Note: [facility] will be handling your Long acting injectable form now on. They will come once a month for that. Your information was been given to them and they will touch base on specifics with your group. Garett Hamilton NP [Nurse Practitioner, Primary Care] - 07/11/25 10:00 am Referral Note: You will see Garett on 07/11/25 at 10:00AM. Your previous PCP has left the practice and this is your new one. If you need to cancel or reschedule the appointment please call the number listed FAX: [phone] Discharge Medications: New amantadine HCl 100 mg Capsule 100 mg PO BID Qty: 60 0RF benztropine 1 mg Tablet 1 mg PO BID Qty: 60 0RF memantine 5 mg Tablet 5 mg PO BID Qty: 60 0RF Eliquis 5 mg Tablet 5 mg PO BID Qty: 60 0RF sertraline 100 mg Tablet 100 mg PO BEDTIME Qty: 30 0RF olanzapine 20 mg tablet 20 mg PO BEDTIME Qty: 30 0RF Invega Sustenna 234 mg/1.5 mL syringe 234 mg IM Q30D Qty: 1.5 0RF Rx Instructions: next dose 07/23/2025 polyethylene glycol 3350 [Miralax] 17 gram/dose powder 17 g PO DAILY PRN (Reason: no BM in 3 days) Qty: 119 0RF Continued amantadine HCl 100 mg capsule 100 mg PO BID pantoprazole 40 mg tablet,delayed release (DR/EC) 40 mg PO DAILY Qty: 30 0RF Discontinued quetiapine 25 mg tablet 25 mg PO BEDTIME furosemide 40 mg tablet 40 mg PO DAILY propranolol 10 mg tablet 10 mg PO BID divalproex 500 mg tablet extended release 24 hr 500 mg PO BID olanzapine 20 mg tablet 20 mg PO BEDTIME memantine 5 mg tablet 5 mg PO BID Eliquis 5 mg tablet 5 mg PO BID Vraylar 6 mg capsule 6 mg PO DAILY sertraline 50 mg Tablet 150 mg PO BEDTIME Discharge Orders: Discharge Order (Routine); Ordered 07/02/25 Ordered By: Maggie Castano Diet: Diabetic diet Activity on Discharge: As tolerated Stand Alone Forms: Patient Portal Discharge page, Community Support Print Language: Senegalese Activity Restrictions/Additional Instructions: You were seen in our Emergency Department today for treatment of a behavioral health issue. It is important after your visit that you follow up with either your behavioral health provider or a primary care doctor within 7 days.? If you have trouble finding a therapist you can reach out to [address] [phone] The National Suicide and Crisis Lifeline can be reached 7 days a week 24 hours a day.? Call 988 to speak with someone.? Return for any worsening symptoms or concerns such as thoughts of self harm or harm to others. Please call 911 if you feel your mental health is worsening.? Care Plan Goals: 1. Maintain mood 2. No SI/HI 3. less VH/AH 4. Less paranoid delusions Health Concerns: 1. Follow up with PCP for routine care. Follow up A1C 6.2% Plan of Treatment: 1. Take medications as prescribed 2. Go to nearest ED or call 911 in event of emergency Assessment: Pt less suspicious and less paranoid. No SI/HI. residual VH/AH, paranoid delusions. She is sleeping and eating well.
== END 2025-07-02 12:03 | disposition home or self-care (01) | DRG 885 ==
LOC: HO.ED 06-12 19:54 → HO.PGERI 06-13 12:15
PROVIDERS: Emergency Medicine; Physician Assistant Medical; Student in an Organized Health Care Education/Training Program; Admitting Provider Social Worker; Emergency Provider Emergency Medicine Emergency Medical Services; PCP Internal Medicine; Visit Provider Social Worker
DX: F25.9 Schizoaffective disorder, unspecified (principal); A08.11 Acute gastroenteropathy due to Norwalk agent; R00.0 Tachycardia, unspecified; T68.XXXA Hypothermia, initial encounter; X31.XXXA Exposure to excessive natural cold, initial encounter; G20.C Parkinsonism, unspecified; G25.0 Essential tremor; I10 Essential (primary) hypertension; K21.9 Gastro-esophageal reflux disease without esophagitis; E04.1 Nontoxic single thyroid nodule; Z91.51 Personal history of suicidal behavior; Z86.711 Personal history of pulmonary embolism; Z79.01 Long term (current) use of anticoagulants; Z91.148 Patient's other noncompliance with medication regimen for other reason
CPT/HCPCS: 36415; 71045; 74177; 80053; 80061; 80143; 80164; 80179; 80307; 81001; 81003; 82947; 83036; 83605; 84439; 84443; 85025; 87040; 87086; 87493; 87507; 87635; 87637; 93005; 99284; 99285; J0131; J0696; J2250; J2359; J2426; Q9967; S9485

== ENCOUNTER → 2025-06-10 14:52 | Outpatient (BNV) | payer MEDICARE, MEDICAID, SELFPAY | PROVIDERS: Emergency Provider Emergency Medicine Emergency Medical Services; PCP Internal Medicine; Visit Provider Radiology Diagnostic Radiology | DX: R19.7 Diarrhea, unspecified (principal); R50.9 Fever, unspecified; K86.89 Other specified diseases of pancreas; A41.9 Sepsis, unspecified organism | CPT/HCPCS: 71045; 74177 ==

== ENCOUNTER → 2025-06-13 11:09 | Outpatient (BNV) | payer MEDICARE, MEDICAID, SELFPAY | PROVIDERS: Admitting Provider Social Worker; Emergency Provider Emergency Medicine Emergency Medical Services; PCP Internal Medicine; Visit Provider Internal Medicine Cardiovascular Disease | DX: Z13.6 Encounter for screening for cardiovascular disorders (principal) | CPT/HCPCS: 93010 ==

== ENCOUNTER → 2025-06-13 12:03 | Outpatient (BNV) | payer MEDICARE, MEDICAID, SELFPAY | PROVIDERS: Admitting Provider Social Worker; Emergency Provider Emergency Medicine Emergency Medical Services; PCP Internal Medicine; Visit Provider Social Worker | DX: F25.9 Schizoaffective disorder, unspecified (principal) | CPT/HCPCS: 90792; 99231; 99232 ==

== ENCOUNTER → 2025-06-13 12:03 | Outpatient (BNV) | payer MEDICARE, MEDICAID, SELFPAY | PROVIDERS: Admitting Provider Social Worker; Emergency Provider Emergency Medicine Emergency Medical Services; PCP Internal Medicine; Visit Provider Nurse Practitioner Family | DX: I26.99 Other pulmonary embolism without acute cor pulmonale (principal); I10 Essential (primary) hypertension | CPT/HCPCS: 99222 ==